=== PATIENT | female | born 1940 | race Caucasian/White ===

== ENCOUNTER 2016-09-09 10:28 | Observation (INO) | payer MEDICARE ==
[~2016-09-09] VITALS: Ht 162.6 cm; Wt 43.7 kg
[2016-09-09 10:34] VITALS: BP 160/76; PULSE 100; RESP 20; TEMP 98.3; O2SAT 97
[2016-09-09 11:30] VITALS: BP 141/91; PULSE 113; RESP 20; O2SAT 97
[2016-09-09] MEDS ORDERED: FAMO20TA2 PO (11:37)
[2016-09-09] MEDS ORDERED: MORP1TAB24 PO (11:37)
[2016-09-09] MEDS ORDERED: DULO1CAP PO (11:37)
[2016-09-09] MEDS ORDERED: ISOS30TA3 PO (11:37)
[2016-09-09] MEDS ORDERED: SPIR50TA PO (11:37)
[2016-09-09] MEDS ORDERED: DILT120C43 PO (11:37)
[2016-09-09] MEDS ORDERED: FURO40TA PO (11:37)
[2016-09-09] MEDS ORDERED: MSIR30 PO (11:37)
[2016-09-09 11:41] LABS: AUTOMATED NEUTROPHIL # 10.3 TH/MM3 (1.8-7.7); BASOPHIL # 0.1 TH/MM3 (0-0.2); BASOPHIL % 0.6 % (0.0-2.0); HEMATOCRIT 37.1 % (35.0-46.0); HEMO FLAGS DIFF FINAL; LYMPH % 3.2 % (9.0-44.0); LYMPHOCYTE # 0.4 TH/MM3 (1.0-4.8); MEAN CELL VOLUME 94.5 FL (80.0-100.0); MEAN CORPUSCULAR HEMOGLOBIN 32.5 PG (27.0-34.0); MEAN CORPUSCULAR HGB CONC 34.4 % (32.0-36.0); MONO % 3.1 % (0.0-8.0); NEUT % 93.1 % (16.0-70.0); PLATELET COUNT 292 TH/MM3 (150-450); RED BLOOD COUNT 3.92 MIL/MM3 (4.00-5.30); RED CELL DISTRIBUTION WIDTH 15.7 % (11.6-17.2); WHITE BLOOD COUNT 11.1 TH/MM3 (4.0-11.0)
--- NOTE | 2016-09-09 11:43 | PD ---
HPI Chief Complaint: Respiratory Distress Time Seen by Provider: 10:47 Travel History International Travel<30 days: No Contact w/Intl Traveler<30days: No Traveled to known affect area: No History of Present Illness HPI Patient is a 75 year old female with history of afib, CHF, anemia, htn, who was sent to the ER by her PCP, Dr. Holliday for evaluation of shortness of breath. Patient reports that she was sent to the ER today as her sob has progressed. Reports that she feels sob on exertion as well as at rest. Reports that nothing makes symptoms better or worse. Reports no chest pain, no fever/ chills. No cough/congestion. Reports that she has also been having overall decreased oral intake over the past 3-4 days - reports "i just don't feel that hungry." Denies dysuria/urgency/freq Patient reports that she does have history of chronic anemia, reports that she does get blood transfusions for this. 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) Cardiovascular Problems: Yes (CHF ) Hypertension: Yes Past Surgical History Hysterectomy: Yes Social History Alcohol Use: No Tobacco Use: No Substance Use: No Allergies-Medications (Allergen,Severity, Reaction): Coded Allergies: Compazine (Verified Allergy, Unknown, 09/09/16) Penicillin (Verified Allergy, Unknown, 09/09/16) Reported Meds & Prescriptions Reported Meds & Active Scripts Active Reported Famotidine 20 Mg Tab 20 Mg PO BID Spironolactone 50 Mg Tab 50 Mg PO BIDPC Isosorbide Mononitrate ER (Isosorbide Mononitrate) 30 Mg Louie 30 Mg PO DAILY Furosemide 40 Mg Tab 40 Mg PO BID Duloxetine DR (Duloxetine HCl) 20 Mg Capdr 20 Mg PO DAILY Morphine IR (Morphine Sulfate) 30 Mg Tab 30 Mg PO Q4H PRN Morphine ER (Morphine Sulfate) 15 Mg Tab 15 Mg PO BID Dilt-Xr (Diltiazem HCl) 120 Mg Capdr 120 Mg PO DAILY Review of Systems General / Constitutional: No: Fever Eyes: No: Visual changes HENT: No: Headaches Cardiovascular: No: Chest Pain or Discomfort Respiratory: Positive: Shortness of Breath Gastrointestinal: No: Abdominal Pain Genitourinary: No: Dysuria Musculoskeletal: No: Pain Skin: No Rash Neurologic: No: Weakness Psychiatric: No: Depression Endocrine: No: Polydipsia Hematologic/Lymphatic: No: Easy Bruising Physical Exam Narrative GENERAL: moderate distress SKIN: Focused skin assessment warm/dry. patient pale appearing HEAD: Atraumatic. Normocephalic. EYES: Pupils equal and round. No scleral icterus. No injection or drainage. ENT: No nasal bleeding or discharge. Mucous membranes pink and moist. NECK: Trachea midline. No JVD. CARDIOVASCULAR: Irregular rate and rhythm. No murmur appreciated. RESPIRATORY: No accessory muscle use. Clear to auscultation. Breath sounds equal bilaterally. GASTROINTESTINAL: Abdomen soft, non-tender, nondistended. Hepatic and splenic margins not palpable. MUSCULOSKELETAL: No obvious deformities. No clubbing. No cyanosis. No edema. NEUROLOGICAL: Awake and alert. No obvious cranial nerve deficits. Motor grossly within normal limits. Normal speech. PSYCHIATRIC: Appropriate mood and affect; insight and judgment normal. Data Data Last Documented VS Vital Signs Date Time Temp Pulse Resp B/P Pulse Ox O2 Delivery O2 Flow Rate FiO2 09/09/16 11:30 113 20 141/91 97 Room Air 09/09/16 10:34 98.3 Orders Prothrombin Time / Inr (Pt) (09/09/16 10:55) Act Partial Throm Time (Ptt) (09/09/16 10:55) Type And Screen (09/09/16 10:55) Electrocardiogram (09/09/16 10:55) B-Type Natriuretic Peptide (09/09/16 10:55) Ckmb (Isoenzyme) Profile (09/09/16 10:55) Complete Blood Count With Diff (09/09/16 10:55) Comprehensive Metabolic Panel (09/09/16 10:55) Magnesium (Mg) (09/09/16 10:55) Troponin I (09/09/16 10:55) Chest, Single Ap (09/09/16 10:55) Ecg Monitoring (09/09/16 10:55) Iv Access Insert/Monitor (09/09/16 10:55) Oximetry (09/09/16 10:55) Morphine Inj (Morphine Inj) (09/09/16 12:45) Aspirin Chew (Aspirin Chew) (09/09/16 13:00) Sodium Chlor 0.9% 1000 Ml Inj (Ns 1000 M (09/09/16 13:15) Potassium Chlor 20 Meq Premix (Kcl 20 Me (09/09/16 13:15) Admit Order (Ed Use Only) (09/09/16 13:04) Direct Delia (09/09/16 11:10) Red Blood Cells (Rbc) (09/09/16 11:10) Labs Laboratory Tests Test 09/09/16 11:10 White Blood Count 11.1 TH/MM3 Red Blood Count 3.92 MIL/MM3 Hemoglobin 12.7 GM/DL Hematocrit 37.1 % Mean Corpuscular Volume 94.5 FL Mean Corpuscular Hemoglobin 32.5 PG Mean Corpuscular Hemoglobin 34.4 % Concent Red Cell Distribution Width 15.7 % Platelet Count 292 TH/MM3 Mean Platelet Volume 8.7 FL Neutrophils (%) (Auto) 93.1 % Lymphocytes (%) (Auto) 3.2 % Monocytes (%) (Auto) 3.1 % Eosinophils (%) (Auto) 0.0 % Basophils (%) (Auto) 0.6 % Neutrophils # (Auto) 10.3 TH/MM3 Lymphocytes # (Auto) 0.4 TH/MM3 Monocytes # (Auto) 0.3 TH/MM3 Eosinophils # (Auto) 0.0 TH/MM3 Basophils # (Auto) 0.1 TH/MM3 CBC Comment DIFF FINAL Differential Comment Prothrombin Time 12.4 SEC Prothromb Time International 1.1 RATIO Ratio Activated Partial 26.1 SEC Thromboplast Time Sodium Level 130 MEQ/L Potassium Level 3.3 MEQ/L Chloride Level 94 MEQ/L Carbon Dioxide Level 20.8 MEQ/L Anion Gap 15 MEQ/L Blood Urea Nitrogen 79 MG/DL Creatinine 1.97 MG/DL Estimat Glomerular Filtration 25 ML/MIN Rate Random Glucose 142 MG/DL Calcium Level 9.6 MG/DL Magnesium Level 1.9 MG/DL Total Bilirubin 1.6 MG/DL Aspartate Amino Transf 20 U/L (AST/SGOT) Alanine Aminotransferase 18 U/L (ALT/SGPT) Alkaline Phosphatase 135 U/L Total Creatine Kinase 43 U/L Troponin I 0.07 NG/ML B-Type Natriuretic Peptide 312 PG/ML Total Protein 9.9 GM/DL Albumin 3.6 GM/DL Blood Type A POSITIVE Antibody Screen POSITIVE Direct Antiglobulin Test WEAKLY (Delia) POSITIVE Crossmatch Leukocyte-Reduced Red Blood Cells Blood Bank Comment MDM Medical Decision Making Medical Screen Exam Complete: Yes Emergency Medical Condition: Yes Interpretation(s) ekg at 1139: Afib at 118bpm, qt/qtc: 320/390 Vital Signs Date Time Temp Pulse Resp B/P Pulse Ox O2 Delivery O2 Flow Rate FiO2 09/09/16 10:46 133 24 98 Room Air 09/09/16 10:34 98.3 100 20 160/76 97 Room Air Differential Diagnosis CHF exacerbation, A. fib, arrhythmia, anemia, electrolyte abnormality Narrative Course 75-year-old female who presents to emergency room complaints of shortness breath at the past 3 days. Sent to the emergency room by her primary care doctor Dr. Holliday, as she has been short of breath at rest as well as exertion. Patient with no focal complaints at this time. Patient does appear pale on exam, blood work including type and screen ordered. Plan to monitor patient on a mover helper. Vital Signs Date Time Temp Pulse Resp B/P Pulse Ox O2 Delivery O2 Flow Rate FiO2 09/09/16 11:30 113 20 141/91 97 Room Air 09/09/16 10:46 133 24 98 Room Air 09/09/16 10:34 98.3 100 20 160/76 97 Room Air Laboratory Tests Test 09/09/16 11:10 White Blood Count 11.1 TH/MM3 (4.0-11.0) Red Blood Count 3.92 MIL/MM3 (4.00-5.30) Hemoglobin 12.7 GM/DL (11.6-15.3) Hematocrit 37.1 % (35.0-46.0) Mean Corpuscular Volume 94.5 FL (80.0-100.0) Mean Corpuscular Hemoglobin 32.5 PG (27.0-34.0) Mean Corpuscular Hemoglobin 34.4 % Concent (32.0-36.0) Red Cell Distribution Width 15.7 % (11.6-17.2) Platelet Count 292 TH/MM3 (150-450) Mean Platelet Volume 8.7 FL (7.0-11.0) Neutrophils (%) (Auto) 93.1 % (16.0-70.0) Lymphocytes (%) (Auto) 3.2 % (9.0-44.0) Monocytes (%) (Auto) 3.1 % (0.0-8.0) Eosinophils (%) (Auto) 0.0 % (0.0-4.0) Basophils (%) (Auto) 0.6 % (0.0-2.0) Neutrophils # (Auto) 10.3 TH/MM3 (1.8-7.7) Lymphocytes # (Auto) 0.4 TH/MM3 (1.0-4.8) Monocytes # (Auto) 0.3 TH/MM3 (0-0.9) Eosinophils # (Auto) 0.0 TH/MM3 (0-0.4) Basophils # (Auto) 0.1 TH/MM3 (0-0.2) CBC Comment DIFF FINAL Differential Comment Prothrombin Time 12.4 SEC (9.8-11.6) Prothromb Time International 1.1 RATIO Ratio Activated Partial 26.1 SEC Thromboplast Time (24.3-30.1) Sodium Level 130 MEQ/L (136-145) Potassium Level 3.3 MEQ/L (3.5-5.1) Chloride Level 94 MEQ/L (98-107) Carbon Dioxide Level 20.8 MEQ/L (21.0-32.0) Anion Gap 15 MEQ/L (5-15) Blood Urea Nitrogen 79 MG/DL (7-18) Creatinine 1.97 MG/DL (0.50-1.00) Estimat Glomerular Filtration 25 ML/MIN (>89) Rate Random Glucose 142 MG/DL (74-106) Calcium Level 9.6 MG/DL (8.5-10.1) Magnesium Level 1.9 MG/DL (1.5-2.5) Total Bilirubin 1.6 MG/DL (0.2-1.0) Aspartate Amino Transf 20 U/L (15-37) (AST/SGOT) Alanine Aminotransferase 18 U/L (10-53) (ALT/SGPT) Alkaline Phosphatase 135 U/L (45-117) Total Creatine Kinase 43 U/L (26-192) Troponin I 0.07 NG/ML (0.02-0.05) B-Type Natriuretic Peptide 312 PG/ML (0-100) Total Protein 9.9 GM/DL (6.4-8.2) Albumin 3.6 GM/DL (3.4-5.0) Blood Type A POSITIVE Antibody Screen POSITIVE Blood Bank Comment Last Impressions Chest X-Ray 09/09/16 1055 Signed Impressions: Service Date/Time: September 11:12 - CONCLUSION: 1. The lungs are clear. 2. Deformity of both shoulders. Maykel Singh MD reviewed case with dr. holliday. will admit for NSTEMI as well as dehydration Diagnosis Primary Impression: NSTEMI (non-ST elevated myocardial infarction) Additional Impressions: Renal insufficiency Hypokalemia Hyponatremia Admitting Information Admitting Physician Requests: Admit Lucina Jimenez DO Sep 09, 2016 11:43
[2016-09-09 11:49] LABS: APTT (PATIENT) 26.1 SEC (24.3-30.1); INTERNATIONAL NORMALIZED RATIO 1.1 RATIO; PROTHROMBIN TIME - PATIENT 12.4 SEC (9.8-11.6)
--- NOTE | 2016-09-09 12:03 | RADRPT ---
EXAM DATE/TIME: 09/09/2016 11:12 [facility] COMPARISON: No previous studies available for comparison. INDICATIONS : Shortness of breath and weakness. MEDICAL HISTORY : Hypertension. SURGICAL HISTORY : None. ENCOUNTER: Initial ACUITY: 1 day PAIN SCORE: 0/10 LOCATION: Bilateral chest FINDINGS: The lungs are symmetrically aerated and clear. The heart is normal size. Both hemidiaphragms well d elineated. Right central line catheter tip projects over the distal superior vena cava. There is de formity of both shoulders with a mottled appearance to the humeral head bilaterally and possible infe rior dislocation/subluxation. Deformity of the lateral right clavicle. CONCLUSION: 1. The lungs are clear. 2. Deformity of both shoulders. Maykel Singh MD on September 09, 2016 at 12:00 Board Certified Radiologist. This report was verified electronically.
[2016-09-09 12:29] LABS: ANION GAP 15 MEQ/L (5-15); AST (GOT) 20 U/L (15-37); BICARBONATE 20.8 MEQ/L (21.0-32.0); BLOOD UREA NITROGEN 79 MG/DL (7-18); CHLORIDE 94 MEQ/L (98-107); GLOMERULAR FILTRATION RATE 25 ML/MIN (>89); MAGNESIUM 1.9 MG/DL (1.5-2.5); POTASSIUM 3.3 MEQ/L (3.5-5.1); SODIUM (NA) 130 MEQ/L (136-145)
[2016-09-09 12:30] LABS: ALT (GPT) 18 U/L (10-53)
[2016-09-09 12:33] LABS: ALKALINE PHOSPHATASE 135 U/L (45-117); TOTAL BILIRUBIN ADULT 1.6 MG/DL (0.2-1.0)
[2016-09-09] MEDS ORDERED: MORPHINE SULFATE 4 MG/ML INJ IV PUSH ONE (12:45)
[2016-09-09 12:50] LABS: CREATINE KINASE 43 U/L (26-192)
[2016-09-09] MEDS ORDERED: ASPIRIN 81 MG CHEW TAB CHEW ONE (13:00)
[2016-09-09] MEDS ORDERED: SODIUM CHLOR 0.9% 1000 ML INJ 1,000 ML IV ONE (13:15)
[2016-09-09] MEDS: POTASSIUM CHLOR 20 MEQ PREMIX 100 ML IV SCH ×2 (13:18→15:38)
[2016-09-09] MEDS ORDERED: SODIUM CHLORIDE 0.9% FLUSH 10 ML FLUSH IV FLUSH PRN (13:30)
[2016-09-09] MEDS ORDERED: NALOXONE HCL 0.4 MG/ML AMP IV PRN (13:30)
[2016-09-09] MEDS ORDERED: BISACODYL 10 MG SUPP RECTAL PRN (15:00)
[2016-09-09] MEDS ORDERED: LACTULOSE SYRUP 20 GM/30 ML CUP PO PRN (15:00)
[2016-09-09] MEDS ORDERED: ACETAMINOPHEN 325 MG TAB PO PRN (15:00)
--- NOTE | 2016-09-09 15:28 | MH ---
cc: KOKI COLEMAN DATE OF ADMISSION 09/09/2016 CHIEF COMPLAINT Weakness, chest pain, shortness of breath. 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 Her son brought her in. She was pale and ashen and looked very poorly. I have suggested she go to [place] [facility]. I was then called for admission with surprisingly normal hemoglobin levels. The patient is found tachycardiac and with a CHF exacerbation and electrolyte abnormality. She sees Dr. Woodard as an outpatient for chronic wound care of her left upper and lower extremities and has had recurrent openings in her back, lumbar hardware with recurrent lumbar osteomyelitis. Her wounds have been stable. However, emergency room physician called with report of troponin of 0.07 and potassium 3.3. She is with her son and he reports that she has had altered mental status and she is usually very lucid, however, she has not been able to recall much of her history. The son thinks that she has had a stroke. LABORATORY DATA Potassium 3.3, sodium 130, creatinine 1.97, troponin 0.07, WBCs 11.1, platelets normal. INR 1.1. MEDICATIONS Home medications are: 1. Diltiazem CD 120 daily. 2. Duloxetine. 3. Imdur. 4. Ambien. 5. Morphine ER 15 milligrams b.i.d. 6. Lasix 40 p.o. b.i.d. 7. Pepcid 20 b.i.d. 8. Spironolactone 50 milligrams b.i.d. 9. Morphine immediate release 30 milligrams q. four p.r.n. pain. IMAGING STUDIES Chest x-ray shows clear lungs, deformity of both shoulders. PAST MEDICAL HISTORY 1. Plasmacytoma. 2. Anemia of chronic disease with recurrent transfusions by oncology. 3. Systolic CHF followed by Dr. Ross. 4. Hypertension. 5. Osteomyelitis of lumbar hardware. 6. MRSA cellulitis and ulcerations of the legs. PAST SURGICAL HISTORY Hysterectomy. 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 No alcohol, tobacco or illicit drug usage. She lives home alone. Her son is very attentive. ALLERGIES COMPAZINE AND PENICILLIN. REVIEW OF SYSTEMS Weakness, confusion and chest pain, shortness of breath, pallor, increased generalized pain. Negative 14-point review of systems otherwise. PHYSICAL EXAMINATION VITAL SIGNS: Vitals are pulse 113, respirations 20, blood pressure 141/91, pulse ox 97% on room air and temperature 98.3. GENERAL: Physical exam in general she is an alert elderly female. She looks much older than 75 years of age. She is grayish in color. She has severe kyphosis. HEENT: Oropharynx is clear. Carotids are clear. CHEST: Clear. CARDIOVASCULAR: Cardiovascular is tachycardiac, irregular. CHEST: Clear. No wheezes, rales, crackles or coughing. ABDOMEN: Soft, nontender. No rebound or guarding. EXTREMITIES: The extremities are wrapped with thick Kishore wraps and bandages otherwise skin is clear. ASSESSMENT 1. Altered mental status. 2. Non-ST elevation MN. 3. Plasmacytoma. 4. Anemia of chronic disease. 5. Dehydration which is likely leading to her normal hemoglobin levels. 6. Recurrent transfusions. 7. Chronic pain syndrome. 8. Lumbar osteomyelitis history. 9. 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 10. Hypokalemia. 11. Hyponatremia. 12. Acute kidney injury. 13. Hyperglycemia. PLAN 1. Consult cardiology. 2. Consult wound care for her chronic leg ulcers. 3. Serial troponin levels. 4. Potassium IV bolus. 5. Normal saline bolus. 6. Diltiazem p.o. 7. Pepcid 20 milligrams b.i.d. for GI prophylaxis. 8. Lasix 40 p.o. b.i.d. 9. Heparin 5000 units subcu q.12 hours. 10. MSIR p.r.n. for pain. 11. MS Contin b.i.d. 15 milligrams b.i.d. for chronic pain. 12. Spironolactone 50 b.i.d. 13. Ambien p.r.n. 14. Telemetry. 15. PT. 16. OT. 17. Observation admission. 18. A.m. labs. Koki Coleman MD RP/EO /2:52 PM /3:10 PM
--- NOTE | 2016-09-09 15:29 | PD.CONS ---
HPI Service CV Consult Requested By Reason for Consult elevated troponin Primary Care Physician Alejandro Ellis MD History of Present Illness Here with f afib, CHF, anemia, htn, who is admitted shortness of breath and elevated troponin. Came to the ER today for progression of shortness of breath. Reports no chest pain. No cough/congestion. Her regular colored liquid plastic applier is Dr. Flores (Gorge Treviño) Review of Systems Consitutional: DENIES: Fatigue, Fever, Chills, Weight gain, Weight loss Eyes: DENIES: Amaurosis Fugax, Change in vision HEENT: DENIES: Lightheadedness, Change in hearing Respiratory: COMPLAINS OF: Shortness of breath Cardiovascular: DENIES: See HPI, Chest pain, Palpitations, Syncope, Tachycardia Gastrointestinal: DENIES: Nausea, Vomiting, Change in bowel habits, Reflux, Bloody stools, Melena Genitourinary: DENIES: Urinary incontinence, Difficulty voiding Integumentary: DENIES: Rash Neurologic: DENIES: Tingling or numbness, Memory problems, Poor Balance, Stroke symptoms Musculoskeletal: DENIES: Joint pain, Muscle pain, Limited range of motion, Back pain Psychiatric: COMPLAINS OF: Anxiety, Depression, Sleep disturbances Hematologic: DENIES: Bruising tendencies, Bleeding tendencies Endocrine: DENIES: Weight gain, Weight loss, Thyroid disease (Gorge Treviño ) Past Family Social History Allergies: Coded Allergies: Compazine (Verified Allergy, Unknown, 09/09/16) Penicillin (Verified Allergy, Unknown, 09/09/16) Past Medical History see HPI Past Surgical History Hysterectomy Reported Medications Reported Meds & Active Scripts Active Reported Famotidine 20 Mg Tab 20 Mg PO BID Spironolactone 50 Mg Tab 50 Mg PO BIDPC Isosorbide Mononitrate ER (Isosorbide Mononitrate) 30 Mg Louie 30 Mg PO DAILY Furosemide 40 Mg Tab 40 Mg PO BID Duloxetine DR (Duloxetine HCl) 20 Mg Capdr 20 Mg PO DAILY Morphine IR (Morphine Sulfate) 30 Mg Tab 30 Mg PO Q4H PRN Morphine ER (Morphine Sulfate) 15 Mg Tab 15 Mg PO BID Dilt-Xr (Diltiazem HCl) 120 Mg Capdr 120 Mg PO DAILY Active Ordered Medications Current Medications Medications (Trade) Dose Ordered Sig/Jayne Route Start Time Stop Time Status Last Admin (KCl 20 Meq Premix Inj) 100 ml @ 50 mls/hr Q2H IV 09/09/16 13:15 09/09/16 17:14 09/09/16 13:18 (NS Flush) 2 ml UNSCH PRN IV FLUSH 09/09/16 13:30 (NS Flush) 2 ml BID IV FLUSH 09/09/16 21:00 (Tylenol) 650 mg Q4H PRN PO 09/09/16 15:00 (Zofran Inj) 4 mg Q6HR PRN IVP 09/09/16 18:00 (Ambien) 5 mg HS PRN PO 09/09/16 21:00 (Heparin Inj) 5,000 units Q12HR SQ 09/09/16 21:00 (Narcan Inj) 0.4 mg UNSCH PRN IV 09/09/16 13:30 (Dina-Colace) 1 tab BID PO 09/09/16 21:00 (Milk Of Magnesia Liq) 30 ml Q12HR PRN PO 09/09/16 21:00 (Senokot) 17.2 mg Q12HR PRN PO 09/09/16 21:00 (Dulcolax Supp) 10 mg DAILY PRN RECTAL 09/09/16 15:00 (Lactulose Liq) 30 ml DAILY PRN PO 09/09/16 15:00 (Cardizem Cd) 120 mg DAILY PO 09/10/16 09:00 (Cymbalta Dr) 20 mg DAILY PO 09/10/16 09:00 (Pepcid) 20 mg BID PO 09/09/16 21:00 (Lasix) 40 mg BID PO 09/09/16 21:00 (Imdur) 30 mg DAILY PO 09/10/16 09:00 (Oramorph Sr) 15 mg BID PO 09/09/16 21:00 (Msir) 30 mg Q4HR PRN PO 09/09/16 16:00 (Aldactone) 50 mg BIDPC PO 09/09/16 18:00 (Nitroglycerin 2% Oint) 1 inch Q6HR TOPICAL 09/09/16 18:00 UNV (Morphine Inj) 5 mg Q4H PRN IV PUSH 09/09/16 15:15 UNV Family History noncontributory Social History denies smoking or alcohol (Gorge Treviño) Physical Exam Vital Signs Vital Signs Date Time Temp Pulse Resp B/P Pulse Ox O2 Delivery O2 Flow Rate FiO2 09/09/16 11:30 113 20 141/91 97 Room Air 09/09/16 10:46 133 24 98 Room Air 09/09/16 10:34 98.3 100 20 160/76 97 Room Air Physical Exam GENERAL: Well-nourished, well-developed patient in no apparent distress. NECK: No JVD. No carotid bruit. CARDIOVASCULAR: IR IR. S1/S2 no murmur, rub, or gallop. RESPIRATORY: No accessory muscle use. Clear to auscultation. Breath sounds equal bilaterally. GASTROINTESTINAL: Abdomen soft, non-tender, nondistended. MUSCULOSKELETAL: Extremities without clubbing, cyanosis, or edema. Laboratory Laboratory Tests Test 09/09/16 09/09/16 11:10 13:34 White Blood Count 11.1 Red Blood Count 3.92 Hemoglobin 12.7 Hematocrit 37.1 Mean Corpuscular Volume 94.5 Mean Corpuscular Hemoglobin 32.5 Mean Corpuscular Hemoglobin 34.4 Concent Red Cell Distribution Width 15.7 Platelet Count 292 Mean Platelet Volume 8.7 Neutrophils (%) (Auto) 93.1 Lymphocytes (%) (Auto) 3.2 Monocytes (%) (Auto) 3.1 Eosinophils (%) (Auto) 0.0 Basophils (%) (Auto) 0.6 Neutrophils # (Auto) 10.3 Lymphocytes # (Auto) 0.4 Monocytes # (Auto) 0.3 Eosinophils # (Auto) 0.0 Basophils # (Auto) 0.1 CBC Comment DIFF FINAL Differential Comment Prothrombin Time 12.4 Prothromb Time International 1.1 Ratio Activated Partial 26.1 Thromboplast Time Sodium Level 130 Potassium Level 3.3 Chloride Level 94 Carbon Dioxide Level 20.8 Anion Gap 15 Blood Urea Nitrogen 79 Creatinine 1.97 Estimat Glomerular Filtration 25 Rate Random Glucose 142 Calcium Level 9.6 Magnesium Level 1.9 Total Bilirubin 1.6 Aspartate Amino Transf 20 (AST/SGOT) Alanine Aminotransferase 18 (ALT/SGPT) Alkaline Phosphatase 135 Total Creatine Kinase 43 Troponin I 0.07 B-Type Natriuretic Peptide 312 Total Protein 9.9 Albumin 3.6 Blood Type A POSITIVE Antibody Screen POSITIVE Direct Antiglobulin Test WEAKLY (Delia) POSITIVE Crossmatch Leukocyte-Reduced Red Blood Cells Blood Bank Comment Antibody Identification Non-Specific Agglutinin (Hudson,Gorge A. PA) Result Diagram: 09/09/16 1110 09/09/16 1110 Assessment and Plan Problem List: (1) Elevated troponin Assessment and Plan So far only one set of enzymes in the indeterminant range, likely demand mediated with her renal dysfunction. BNP is not significantly elevated. A-fib: We do need to slow the heart rate. Start diltiazem gtt and go from there. She is not a good candidate for beta blockers (SOB) or digoxin (Renal) ( Gorge Treviño) Assessment and Plan titrate CCB PO and wean gtt as tolerated 2d echo lexiscan tomorrow (Joseph Salinas MD) Gorge Treviño Sep 09, 2016 15:29 Joseph Salinas MD Sep 09, 2016 15:44
[2016-09-09 15:30] VITALS: BP 171/95; PULSE 103; RESP 20; O2SAT 97
[2016-09-09] MEDS: MORPHINE SULFATE 8 MG/ML INJ IV PUSH PRN ×2 (15:39→18:10)
--- NOTE | 2016-09-09 16:14 | OTSOAPIP ---
PATIENT OFF THE FLOOR FOR TESTING. Therapist: Cary Cho OTR/L Signature on file
--- NOTE | 2016-09-09 16:58 | RADRPT ---
EXAM DATE/TIME: 09/09/2016 16:07 This report includes an Addendum and supersedes previous reports for this exam. [facility] COMPARISON: No previous studies available for comparison. INDICATIONS : AMS RADIATION DOSE: 27.95 CTDIvol (mGy) MEDICAL HISTORY : Hypertension. Congestive heart failure. SURGICAL HISTORY : None. ENCOUNTER: Initial ACUITY: 1 day PAIN SCALE: 5/10 LOCATION: cranial TECHNIQUE: Multiple contiguous axial images were obtained of the head. Using automated exposure control and adj ustment of the mA and/or kV according to patient size, radiation dose was kept as low as reasonably a chievable to obtain optimal diagnostic quality images. FINDINGS: The ventricles and sulci are prominent characteristic of central cortical atrophy. There is a solita ry punctate hyperdensity in the left high convexity centrum semiovale, best seen on image #24. This may represent a hemorrhage or calcification. No evidence of mass effect no evidence of midline shift . Posterior fossa structures are grossly intact. There is a linear calcification in the tentorium a djacent to the sagittal sinus on the right. 4th ventricle is midline. Wide windows for bony detail demonstrate the calvarium to be intact. CONCLUSION: Solitary punctate hyperdensity in the left centrum semiovale could represent a punctate acute hemorrh age. Recommend further characterization with MRI to include blood sensitive gradient echo imaging. Maykel Singh MD on September 09, 2016 at 16:53 Board Certified Radiologist. This report was verified electronically. ADDENDUM: MRI can be performed without intravenous contrast. Mil Toro MD on September 09, 2016 at 17:33 Board Certified Radiologist. This report was verified electronically.
[2016-09-09 17:00] VITALS: BP 134/90; PULSE 101; RESP 18; TEMP 97.3; O2SAT 98
[2016-09-09] MEDS ORDERED: DILTIAZEM INJ 125 MG in SODIUM CHLORIDE 0.9% INJ 100 ML IV SCH (17:00)
[2016-09-09] MEDS ORDERED: NITROGLYCERIN 2% OINT 1 GM PACKET TOPICAL SCH (18:00)
[2016-09-09] MEDS ORDERED: ONDANSETRON HCL 4 MG/2 ML VIAL IVP PRN (18:00)
[2016-09-09] MEDS: SPIRONOLACTONE 50 MG TAB PO SCH (18:07)
[2016-09-09] MEDS: DILTIAZEM HCL 60 MG TAB PO SCH ×2 (18:07→23:22)
--- NOTE | 2016-09-09 19:29 | RADRPT ---
EXAM DATE/TIME: 09/09/2016 18:58 [facility] COMPARISON: CT BRAIN W/O CONTRAST, September 09, 2016, 16:07. INDICATIONS : CVA. Abnormal CT. MEDICAL HISTORY : Hypertension. Anemia. SURGICAL HISTORY : Hysterectomy. ENCOUNTER: Subsequent ACUITY: 1 day PAIN SCORE: 3/10 LOCATION: cranial TECHNIQUE: Multiplanar, multisequence MRI of the brain was performed without contrast. FINDINGS: CEREBRUM: The ventricles are normal for age. No evidence of midline shift, mass lesion, hemorrhage or acute in farction. No extraaxial fluid collections are seen. The pituitary gland and suprasellar cistern are normal in configuration. WHITE MATTER: Scattered punctate areas of white matter T2 prolongation which are nonspecific POSTERIOR FOSSA: The cerebellum and brainstem are intact. The 4th ventricle is midline. The cerebellopontine angle is unremarkable. The cerebellar tonsils are normal in position. DIFFUSION IMAGING: No focal areas of restricted diffusion are seen. No evidence of acute infarction. EXTRACRANIAL: The visualized portions of the orbits and paranasal sinuses are unremarkable. CONCLUSION: Patchy white matter signal abnormalities which are likely microvascular ischemic. No acute findings. Sterling Aguilar MD on September 09, 2016 at 19:25 Board Certified Radiologist. This report was verified electronically.
[2016-09-09 20:01] VITALS: BP 130/81; PULSE 85; RESP 16; TEMP 97.6; O2SAT 97
[2016-09-09 20:16] VITALS: PULSE 85
[2016-09-09] MEDS ORDERED: HEPARIN SODIUM - SQ 10,000 UNITS/ML VIAL SQ SCH (21:00)
[2016-09-09] MEDS ORDERED: SENNOSIDES 8.6 MG TAB PO PRN (21:00)
[2016-09-09] MEDS ORDERED: ZOLPIDEM TARTRATE 5 MG TAB PO PRN (21:00)
[2016-09-09] MEDS ORDERED: MAGNESIUM HYDROXIDE SUSP 30 ML CUP PO PRN (21:00)
--- NOTE | 2016-09-09 21:04 | RADRPT ---
EXAM DATE/TIME: 09/09/2016 20:18 [facility] COMPARISON: No previous studies available for comparison. INDICATIONS : Weakness. MEDICAL HISTORY : Congestive heart failure. Myocardial infarction. Hypertension. Asthma. Osteoporosis. Hepatitis. Anemi a. SURGICAL HISTORY : Hysterectomy. Back surgery. Leg surgery. ENCOUNTER: Initial ACUITY: 1 day PAIN SCORE: 0/10 LOCATION: Bilateral neck. PEAK SYSTOLIC VELOCITIES (cm/sec): ICA/CCA RATIO: Right: 1.3 Left: 1.0 ICA: Right: 59.6 Left: 63.3 CCA: Right: 46.1 Left: 60.3 ECA: Right: 74.9 Left: 47.1 VERTEBRAL: Right: 52.9 antegrade Left: 52.9 antegrade Elevated flow velocities and ICA/CCA ratios have been found to correlate with increased degrees of vessel stenosis, calculated as percentage of diameter relative to a normal segment of distal ICA/CCA FINDINGS: RIGHT CAROTID: No significant stenosis is visualized. The waveforms are within normal limits. LEFT CAROTID: No significant stenosis is visualized. The waveforms are within normal limits. VERTEBRAL ARTERIES: Antegrade flow is seen in both vertebral arteries. MISCELLANEOUS: None. CONCLUSION: No evidence of flow-limiting carotid stenosis. Sterling Aguilar MD on September 09, 2016 at 21:02 Board Certified Radiologist. This report was verified electronically.
[2016-09-09] MEDS: DOCUSATE SODIUM 50 MG/SENNA 8.6 MG TAB PO SCH (21:07)
[2016-09-09] MEDS: FAMOTIDINE 20 MG TAB PO SCH (21:08)
[2016-09-09] MEDS: FUROSEMIDE 40 MG TAB PO SCH (21:08)
[2016-09-09] MEDS: MORPHINE SULFATE 15 MG CONTROLLED RELEASE TAB PO SCH (21:08)
[2016-09-09] MEDS: SODIUM CHLORIDE 0.9% FLUSH 10 ML FLUSH IV FLUSH SCH (21:09)
[2016-09-09] MEDS: HEPARIN SODIUM - SQ 10,000 UNITS/ML VIAL SQ SCH (23:18)
[2016-09-09] MEDS: MORPHINE SULFATE 30 MG TAB PO PRN (23:23)
[2016-09-10] VITALS (10 sets, daily range): BP systolic 88–111; BP diastolic 53–62; PULSE 45–88; RESP 16–20; TEMP 97.2–97.7; O2SAT 95–98
[2016-09-10] MEDS: MORPHINE SULFATE 30 MG TAB PO PRN ×3 (04:07→20:13)
[2016-09-10 04:55] LABS: AUTOMATED NEUTROPHIL # 7.2 TH/MM3 (1.8-7.7); BASOPHIL % 0.5 % (0.0-2.0); EOSINOPHIL % 0.3 % (0.0-4.0); HEMATOCRIT 30.5 % (35.0-46.0); LYMPH % 9.8 % (9.0-44.0); LYMPHOCYTE # 0.9 TH/MM3 (1.0-4.8); MEAN CELL VOLUME 93.7 FL (80.0-100.0); MEAN CORPUSCULAR HEMOGLOBIN 33.7 PG (27.0-34.0); MONO % 8.4 % (0.0-8.0); PLATELET COUNT 231 TH/MM3 (150-450); RED BLOOD COUNT 3.25 MIL/MM3 (4.00-5.30); RED CELL DISTRIBUTION WIDTH 15.4 % (11.6-17.2); WHITE BLOOD COUNT 8.9 TH/MM3 (4.0-11.0)
[2016-09-10 05:17] LABS: HEMO FLAGS AUTO DIFF
[2016-09-10 05:22] LABS: BICARBONATE 23.5 MEQ/L (21.0-32.0); POTASSIUM 3.8 MEQ/L (3.5-5.1)
[2016-09-10] MEDS: DILTIAZEM HCL 60 MG TAB PO SCH ×2 (05:48→12:00)
[2016-09-10 06:50] LABS: OVALOCYTES 1+ (NORMAL)
[2016-09-10 06:51] LABS: SCAN/DIFF AUTO DIFF CONFIRMED
[2016-09-10] MEDS: ISOSORBIDE MONONITRATE 30 MG TAB PO SCH (09:00)
[2016-09-10] MEDS ORDERED: DILTIAZEM-CD 120 MG CAP ER PO SCH (09:00)
[2016-09-10] MEDS: SPIRONOLACTONE 50 MG TAB PO SCH ×2 (09:00→17:40)
[2016-09-10] MEDS: FUROSEMIDE 40 MG TAB PO SCH ×2 (09:00→21:41)
[2016-09-10] MEDS ORDERED: REGADENOSON INJ 0.4 MG/5 ML SYR ONE (10:14)
--- NOTE | 2016-09-10 11:30 | HHI.FPPN ---
Subjective Remarks called by RN tachy MRI head ordered low bp pt looks better d/w RN Objective Vitals Vital Signs Date Time Temp Pulse Resp B/P Pulse Ox O2 Delivery O2 Flow Rate FiO2 09/10/16 08:10 45 09/10/16 08:02 53 09/10/16 08:00 97.3 56 16 94/62 95 09/10/16 07:58 88/54 09/10/16 07:45 96 21 09/10/16 04:00 97.4 76 18 92/54 97 09/10/16 00:00 97.7 71 20 92/62 98 09/09/16 20:16 85 09/09/16 20:01 97.6 85 16 130/81 97 09/09/16 18:52 16 09/09/16 17:00 97.3 101 18 134/90 98 09/09/16 15:30 103 20 171/95 97 Room Air 09/09/16 11:30 113 20 141/91 97 Room Air I/O 09/09/16 09/09/16 09/09/16 09/10/16 09/10/16 09/10/16 07:00 15:00 23:00 07:00 15:00 23:00 Intake Total 360 ml 240 ml Output Total 400 ml Balance -40 ml 240 ml Intake Oral 360 ml 240 ml Output Urine Total 400 ml # Voids 2 # Bowel Movements 0 0 Result Diagram: 09/10/1640909/10/16409 Objective Remarks GENERAL: SKIN: Warm and dry. BLE ulcers HEAD: Atraumatic. Normocephalic. EYES: Pupils equal and round. No scleral icterus. No injection or drainage. ENT: No nasal bleeding or discharge. Mucous membranes pink and moist. NECK: Trachea midline. No JVD. CARDIOVASCULAR: Regular rate and rhythm. RESPIRATORY: No accessory muscle use. Clear to auscultation. Breath sounds equal bilaterally. GASTROINTESTINAL: Abdomen soft, non-tender, nondistended. Hepatic and splenic margins not palpable. MUSCULOSKELETAL: Extremities without clubbing, cyanosis, or edema. No obvious deformities. NEUROLOGICAL: Awake and alert. No obvious cranial nerve deficits. Motor grossly within normal limits. 1 out of 5 muscle strength in the arms and legs. Normal speech. PSYCHIATRIC: Appropriate mood and affect; insight and judgment normal. Medications and IVs Current Medications Medications (Trade) Dose Ordered Sig/Jayne Route Start Time Stop Time Status Last Admin (NS Flush) 2 ml UNSCH PRN IV FLUSH 09/09/16 13:30 (NS Flush) 2 ml BID IV FLUSH 09/09/16 21:00 09/09/16 21:09 (Tylenol) 650 mg Q4H PRN PO 09/09/16 15:00 (Zofran Inj) 4 mg Q6HR PRN IVP 09/09/16 18:00 (Ambien) 5 mg HS PRN PO 09/09/16 21:00 (Narcan Inj) 0.4 mg UNSCH PRN IV 09/09/16 13:30 (Dina-Colace) 1 tab BID PO 09/09/16 21:00 09/09/16 21:07 (Milk Of Magnesia Liq) 30 ml Q12HR PRN PO 09/09/16 21:00 (Senokot) 17.2 mg Q12HR PRN PO 09/09/16 21:00 (Dulcolax Supp) 10 mg DAILY PRN RECTAL 09/09/16 15:00 (Lactulose Liq) 30 ml DAILY PRN PO 09/09/16 15:00 (Cymbalta Dr) 20 mg DAILY PO 09/10/16 09:00 (Pepcid) 20 mg BID PO 09/09/16 21:00 09/09/16 21:08 (Lasix) 40 mg BID PO 09/09/16 21:00 09/09/16 21:08 (Imdur) 30 mg DAILY PO 09/10/16 09:00 (Oramorph Sr) 15 mg BID PO 09/09/16 21:00 09/09/16 21:08 (Msir) 30 mg Q4HR PRN PO 09/09/16 16:00 09/10/16 04:07 (Aldactone) 50 mg BIDPC PO 09/09/16 18:00 09/09/16 18:07 (Morphine Inj) 5 mg Q4H PRN IV PUSH 09/09/16 15:15 09/09/16 18:10 (Cardizem) 60 mg Q6HR PO 09/09/16 18:00 09/09/16 23:22 (Heparin Inj) 5,000 units Q12HR SQ 09/09/16 22:00 09/09/16 23:18 A/P Assessment and Plan ASSESSMENT- 1. Altered mental status likely due to dehydration 2. Non-ST elevation TN. 3. SCHF 4. Anemia of chronic disease 5. Dehydration which is likely leading to her normal hemoglobin levels. 6. Recurrent transfusions. 7. Chronic pain syndrome. 8. Lumbar osteomyelitis history. 9. 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 10. Hypokalemia. 11. Hyponatremia. 12. Acute kidney injury. 13. Hyperglycemia. 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 PLAN- Stress test today. Consult cardiology. Consult wound care for her chronic leg ulcers. Serial troponin levels. Diltiazem p.o. Pepcid 20 milligrams b.i.d. for GI prophylaxis. Lasix 40 p.o. b.i.d. Heparin 5000 units subcu q.12 hours. MSIR p.r.n. for pain. MS Contin 15 milligrams b.i.d. for chronic pain. Spironolactone 50 b.i.d. Ambien p.r.n. Telemetry. PT. OT. Observation admission. A.m. labs. Alejandro Ellis MD Sep 10, 2016 11:30
[2016-09-10] MEDS: DOCUSATE SODIUM 50 MG/SENNA 8.6 MG TAB PO SCH ×2 (11:54→20:09)
[2016-09-10] MEDS: FAMOTIDINE 20 MG TAB PO SCH ×2 (11:55→20:09)
[2016-09-10] MEDS: DULoxetine HCl DR 20 MG CAP PO SCH (11:55)
[2016-09-10] MEDS: HEPARIN SODIUM - SQ 10,000 UNITS/ML VIAL SQ SCH ×2 (11:57→20:09)
[2016-09-10] MEDS: MORPHINE SULFATE 15 MG CONTROLLED RELEASE TAB PO SCH ×2 (11:57→21:41)
[2016-09-10] MEDS: SODIUM CHLORIDE 0.9% FLUSH 10 ML FLUSH IV FLUSH SCH ×2 (11:59→20:09)
--- NOTE | 2016-09-10 12:36 | RADRPT ---
EXAM DATE/TIME: 09/10/2016 09:49 [facility] COMPARISON: No previous studies available for comparison. INDICATIONS : Atrial fibrillation with congestive heart faliure. Coronary artery disease. DOSE: 25.8 mCi Tc99m Myoview at stress. 8.4 mCi Tc99m Myoview at rest. 0.4 mg Lexiscan STRESS SYMPTOMS: Short of breath. EJECTION FRACTION: 60% MEDICAL HISTORY : Congestive hearrt failure. Hypertension. Asthma. SURGICAL HISTORY : Hysterectomy. Back and leg surgery. ENCOUNTER: Initial ACUITY: 1 day PAIN SCALE: 3/10 LOCATION: Bilateral chest TECHNIQUE: The patient underwent pharmacologic stress with infusion of prescribed dose. Continuous ECG tracing was monitored during stress. Gated SPECT imaging was performed after stress and conventional SPECT i maging was performed at rest. The examination was performed on a SPECT/CT scanner, both attenuation and non-corrected datasets were reviewed. FINDINGS: Moderate gut activity does obscure the inferior wall. The best perfused myocardium is the septum and inferior wall. There is minimal redistribution in the low anterior wall. There is minimal redistribution in the high anterior, anterior lateral wall towa rds the base as well. The high anterior, anterolateral redistribution appears more significant. Ejection fraction is calcified at 60%. There is some patient motion on these images making this inse nsitive. CONCLUSION: Equivocal for ischemia. Correlation is suggested. RISK CATEGORY: Low (<1% Annual Mortality Rate) Adriel Toro MD FACR on September 10, 2016 at 12:31 Board Certified Radiologist. This report was verified electronically.
--- NOTE | 2016-09-10 13:15 | PD.CARD.PN ---
Subjective Subjective Remarks off floor afib controlled rate Objective Medications Active Medications Acetaminophen (Tylenol) 650 mg Q4H PRN PO; Start 09/09/16 at 15:00 Bisacodyl (Dulcolax Supp) 10 mg DAILY PRN RECTAL; Start 09/09/16 at 15:00 Diltiazem HCl (Cardizem Cd) 120 mg DAILY PO; Start 09/10/16 at 09:00; Stop at 09:00; Status DC Diltiazem HCl (Cardizem) 60 mg Q6HR PO Last administered on 09/09/16 23:22; Admin Dose 60 MG; Start 09/09/16 at 18:00 Diltiazem HCl/ Sodium Chloride (Cardizem Inj/NS Inj) 125 ml @ 0 mls/hr TITRATE IV; Start 09/09/16 at 17:00; Stop 09/09/16 at 21:52; Status DC Duloxetine HCl (Cymbalta Dr) 20 mg DAILY PO Last administered on 09/10/16 11:55 ; Admin Dose 20 MG; Start 09/10/16 at 09:00 Famotidine (Pepcid) 20 mg BID PO Last administered on 09/10/16 11:55; Admin Dose 20 MG; Start 09/09/16 at 21:00 Furosemide (Lasix) 40 mg BID PO Last administered on 09/09/16 21:08; Admin Dose 40 MG; Start 09/09/16 at 21:00 Heparin Sodium (Porcine) (Heparin Inj) 5,000 units Q12HR SQ; Start 09/09/16 at 21 :00; Stop 09/09/16 at 21:00; Status DC Heparin Sodium (Porcine) (Heparin Inj) 5,000 units Q12HR SQ Last administered on 09/10/16 11:57; Admin Dose 5,000 UNITS; Start 09/09/16 at 22:00 Isosorbide Mononitrate (Imdur) 30 mg DAILY PO; Start 09/10/16 at 09:00 Lactulose (Lactulose Liq) 30 ml DAILY PRN PO; Start 09/09/16 at 15:00 Magnesium Hydroxide (Milk Of Magnesia Liq) 30 ml Q12HR PRN PO; Start 09/09/16 at 21:00 Morphine Sulfate (Msir) 30 mg Q4HR PRN PO Last administered on 09/10/16 04:07; Admin Dose 30 MG; Start 09/09/16 at 16:00 Morphine Sulfate (Oramorph Sr) 15 mg BID PO Last administered on 09/10/16 11:57 ; Admin Dose 15 MG; Start 09/09/16 at 21:00 Morphine Sulfate 5 mg 5 mg Q4H PRN IV PUSH Last administered on 09/09/16 18:10 ; Admin Dose 5 MG; Start 09/09/16 at 15:15 Naloxone HCl (Narcan Inj) 0.4 mg UNSCH PRN IV; Start 09/09/16 at 13:30 Nitroglycerin (Nitroglycerin 2% Oint) 1 inch Q6HR TOPICAL; Start 09/09/16 at 18: 00; Stop 09/09/16 at 18:00; Status DC Ondansetron HCl (Zofran Inj) 4 mg Q6HR PRN IVP; Start 09/09/16 at 18:00 Potassium Chloride (KCl 20 Meq Premix Inj) 100 ml @ 50 mls/hr Q2H IV Last administered on 09/09/16 15:38; Admin Dose 50 MLS/HR; Start 09/09/16 at 13:15; Stop 09/09/16 at 17:14; Status DC Regadenoson (Lexiscan Inj) 0.4 mg STK-MED ONCE .ROUTE Last administered on 10:14; Admin Dose 0.4 MG; Start 09/10/16 at 10:14; Stop 09/10/16 at 10:15; Status DC Senna/Docusate Sodium (Dina-Colace) 1 tab BID PO Last administered on 09/10/16 11:54; Admin Dose 1 TAB; Start 09/09/16 at 21:00 Sennosides (Senokot) 17.2 mg Q12HR PRN PO; Start 09/09/16 at 21:00 Sodium Chloride 1,000 ml @ 999 mls/hr BOLUS ONCE IV Last administered on 13:18; Admin Dose 999 MLS/HR; Start 09/09/16 at 13:15; Stop 09/09/16 at 14:15 ; Status DC Sodium Chloride (NS Flush) 2 ml BID IV FLUSH Last administered on 09/10/16 11:59 ; Admin Dose 2 ML; Start 09/09/16 at 21:00 Sodium Chloride (NS Flush) 2 ml UNSCH PRN IV FLUSH; Start 09/09/16 at 13:30 Spironolactone (Aldactone) 50 mg BIDPC PO Last administered on 09/09/16 18:07; Admin Dose 50 MG; Start 09/09/16 at 18:00 Zolpidem Tartrate (Ambien) 5 mg HS PRN PO; Start 09/09/16 at 21:00 Vital Signs / I&O Vital Signs Date Time Temp Pulse Resp B/P Pulse Ox O2 Delivery O2 Flow Rate FiO2 09/10/16 12:00 97.3 64 18 101/61 98 09/10/16 08:10 45 09/10/16 08:02 53 09/10/16 08:00 97.3 56 16 94/62 95 09/10/16 07:58 88/54 09/10/16 07:45 96 21 09/10/16 04:00 97.4 76 18 92/54 97 09/10/16 00:00 97.7 71 20 92/62 98 09/09/16 20:16 85 09/09/16 20:01 97.6 85 16 130/81 97 09/09/16 18:52 16 09/09/16 17:00 97.3 101 18 134/90 98 09/09/16 15:30 103 20 171/95 97 Room Air I/O 09/09/16 09/09/16 09/09/16 09/10/16 09/10/16 09/10/16 07:00 15:00 23:00 07:00 15:00 23:00 Intake Total 360 ml 240 ml Output Total 400 ml Balance -40 ml 240 ml Intake Oral 360 ml 240 ml Output Urine Total 400 ml # Voids 2 # Bowel Movements 0 0 Physical Exam GENERAL: SKIN: Warm and dry. HEAD: Normocephalic. EYES: No scleral icterus. No injection or drainage. NECK: Supple, trachea midline. No JVD or lymphadenopathy. CARDIOVASCULAR: IR IR. RESPIRATORY: Breath sounds equal bilaterally. No accessory muscle use. GASTROINTESTINAL: Abdomen soft, non-tender, nondistended. MUSCULOSKELETAL: No cyanosis, or edema. BACK: Nontender without obvious deformity. No CVA tenderness. Laboratory Laboratory Tests Test 09/09/16 09/09/16 09/09/16 09/09/16 13:34 14:48 16:00 21:04 Antibody Identification Non-Specific Agglutinin Troponin I 0.08 NG/ML 0.08 NG/ML Blood Type A POSITIVE Test 09/10/16 04:10 White Blood Count 8.9 TH/MM3 Red Blood Count 3.25 MIL/MM3 Hemoglobin 11.0 GM/DL Hematocrit 30.5 % Mean Corpuscular Volume 93.7 FL Mean Corpuscular Hemoglobin 33.7 PG Mean Corpuscular Hemoglobin 36.0 % Concent Red Cell Distribution Width 15.4 % Platelet Count 231 TH/MM3 Mean Platelet Volume 8.8 FL Neutrophils (%) (Auto) 81.0 % Lymphocytes (%) (Auto) 9.8 % Monocytes (%) (Auto) 8.4 % Eosinophils (%) (Auto) 0.3 % Basophils (%) (Auto) 0.5 % Neutrophils # (Auto) 7.2 TH/MM3 Lymphocytes # (Auto) 0.9 TH/MM3 Monocytes # (Auto) 0.8 TH/MM3 Eosinophils # (Auto) 0.0 TH/MM3 Basophils # (Auto) 0.0 TH/MM3 CBC Comment AUTO DIFF Differential Comment AUTO DIFF CONFIRMED Basophilic Stippling FAINT Ovalocytes 1+ Sodium Level 133 MEQ/L Potassium Level 3.8 MEQ/L Chloride Level 99 MEQ/L Carbon Dioxide Level 23.5 MEQ/L Anion Gap 11 MEQ/L Blood Urea Nitrogen 85 MG/DL Creatinine 1.70 MG/DL Estimat Glomerular Filtration 29 ML/MIN Rate Random Glucose 99 MG/DL Calcium Level 8.3 MG/DL Imaging Last Impressions Myocardial Perfusion Scan Nuc Med 09/10/16 0000 Signed Impressions: Service Date/Time: Saturday, September 10, 2016 09:49 - CONCLUSION: Equivocal for ischemia. Correlation is suggested. RISK CATEGORY: Low (<1%% Annual Mortality Rate) Adriel Toro MD FACR Chest X-Ray 09/09/16 1055 Signed Impressions: Service Date/Time: September 11:12 - CONCLUSION: 1. The lungs are clear. 2. Deformity of both shoulders. Maykel Singh MD Head CT 09/09/16 0000 Signed Impressions: Service Date/Time: September 16:07 - CONCLUSION: Solitary punctate hyperdensity in the left centrum semiovale could represent a punctate acute hemorrhage. Recommend further characterization with MRI to include blood sensitive gradient echo imaging. Maykel Singh MD ADDENDUM: MRI can be performed without intravenous contrast. Mil Toor MD Carotid Artery Ultrasound 09/09/16 Signed Impressions: Service Date/Time: September 20:18 - CONCLUSION: No evidence of flow-limiting carotid stenosis. Sterling Aguilar MD Brain MRI 09/09/16 Signed Impressions: Service Date/Time: September 18:58 - CONCLUSION: Patchy white matter signal abnormalities which are likely microvascular ischemic. No acute findings. Sterling Aguilar MD Assessment and Plan Problem List: (1) Elevated troponin Assessment and Plan decrease CCB dosing. rate controlled and slightly hypotensive SPECT pending if negative, ok for dc from cardio perspective CHADSVASC 4. consider anticoagulation with new novel agent. Eliquis BID? FU with Joseph Mae MD Sep 10, 2016 13:15
--- NOTE | 2016-09-10 13:47 | OTSOAPIP ---
TIME SESSION COMPLETED: AM TREATMENT TIME: 0 MINS. ELECTRONIC MEDICAL RECORD REVIEWED. INTERDISCIPLINARY COMMUNICATION: PATIENT WAS OFF THE UNIT TO UNDERGO A MYOCARDIAL PERFUSION SCAN. PLAN: WILL SEE WHEN ABLE OR NEXT TREATMENT DAY Therapist: ISA TESFAYE/Sai Signature on file
--- NOTE | 2016-09-10 17:42 | MB ---
cc: KRIS ESPARZA M.D. DATE OF CONSULTATION 09/10/16 REASON FOR CONSULTATION Mental status change, abnormal CT brain. HISTORY OF PRESENT ILLNESS Ms. Nicolas is a 75-year-old female who was admitted with chest pain and shortness of breath. Apparently was having some symptoms of confusion, had an MRI done of the brain which suggested the possibility of a hemorrhage in the left centrum semiovale. However, MRI of the brain was obtained revealing no sign of hemorrhage, only chronic ischemic demyelinization present. The patient denies any memory loss at the present time or confusion. Denies headaches. Denies any focal deficits. NEUROLOGIC EXAMINATION Higher cortical functions at this time appear to be normal. She is alert, oriented x3. Speech is fluent. Cranial nerves II-XII are normal. Motor exam reveals 5/5 strength of all groups. There is no drift. Fine motor skills are normal. Reflexes are symmetric. IMPRESSION The increased signal on the CT scan is probably incidental finding. MRI does not reveal any acute change. No hemorrhage. Carotid ultrasound is normal. At this time, she appears to be neurologically normal. I would not recommend any further neurologic evaluation. MD SHAYLA Montiel/ /5:33 PM /5:37 PM
--- NOTE | 2016-09-10 17:58 | EKG ---
Date Performed: 09/09/2016 Time Performed: 11:39:49 PTAGE: 75 years EKG: ATRIAL FIBRILLATION WITH RAPID VENTRICULAR RESPONSE ABNORMAL ECG NO PREVIOUS TRACING DOCTOR: Ronnie Zarate Interpretating Date/Time 09/10/2016 17:57:22
[2016-09-11] VITALS (8 sets, daily range): BP systolic 96–113; BP diastolic 60–80; PULSE 74–104; RESP 16–20; TEMP 97.4–97.9; O2SAT 96–99
[2016-09-11] MEDS: MORPHINE SULFATE 30 MG TAB PO PRN ×4 (00:59→22:46)
[2016-09-11 05:49] LABS: AUTOMATED NEUTROPHIL # 4.8 TH/MM3 (1.8-7.7); BASOPHIL # 0.1 TH/MM3 (0-0.2); BASOPHIL % 1.2 % (0.0-2.0); EOSINOPHIL # 0.1 TH/MM3 (0-0.4); EOSINOPHIL % 2.2 % (0.0-4.0); HEMATOCRIT 29.4 % (35.0-46.0); HEMO FLAGS DIFF FINAL; LYMPH % 12.4 % (9.0-44.0); LYMPHOCYTE # 0.8 TH/MM3 (1.0-4.8); MEAN CELL VOLUME 96.2 FL (80.0-100.0); MEAN CORPUSCULAR HEMOGLOBIN 31.9 PG (27.0-34.0); MEAN CORPUSCULAR HGB CONC 33.2 % (32.0-36.0); MONO % 11.1 % (0.0-8.0); NEUT % 73.1 % (16.0-70.0); PLATELET COUNT 223 TH/MM3 (150-450); RED BLOOD COUNT 3.05 MIL/MM3 (4.00-5.30); RED CELL DISTRIBUTION WIDTH 15.6 % (11.6-17.2); WHITE BLOOD COUNT 6.6 TH/MM3 (4.0-11.0)
[2016-09-11 06:57] LABS: BICARBONATE 25.5 MEQ/L (21.0-32.0); POTASSIUM 3.8 MEQ/L (3.5-5.1)
[2016-09-11] MEDS: DOCUSATE SODIUM 50 MG/SENNA 8.6 MG TAB PO SCH ×2 (08:50→20:57)
[2016-09-11] MEDS: HEPARIN SODIUM - SQ 10,000 UNITS/ML VIAL SQ SCH ×2 (08:50→20:59)
[2016-09-11] MEDS: SPIRONOLACTONE 50 MG TAB PO SCH ×2 (08:50→17:44)
[2016-09-11] MEDS: DULoxetine HCl DR 20 MG CAP PO SCH (08:51)
[2016-09-11] MEDS: MORPHINE SULFATE 15 MG CONTROLLED RELEASE TAB PO SCH ×2 (08:51→20:57)
[2016-09-11] MEDS: ISOSORBIDE MONONITRATE 30 MG TAB PO SCH (08:51)
[2016-09-11] MEDS: FAMOTIDINE 20 MG TAB PO SCH ×2 (08:51→20:57)
[2016-09-11] MEDS: FUROSEMIDE 40 MG TAB PO SCH ×2 (08:51→20:57)
[2016-09-11] MEDS: SODIUM CHLORIDE 0.9% FLUSH 10 ML FLUSH IV FLUSH SCH ×2 (08:52→21:01)
[2016-09-11] MEDS ORDERED: DILTIAZEM-CD 120 MG CAP ER PO SCH (09:00)
--- NOTE | 2016-09-11 10:20 | PD.CARD.PN ---
Subjective Subjective Remarks Chart reviewed and patient examined. She denies chest pain, palpitations, GI symptoms or bleeding. She does have mild dyspnea. Telemetry reveals mildly rapid atrial fibrillation. Objective Medications Reviewed Vital Signs / I&O Vital Signs Date Time Temp Pulse Resp B/P Pulse Ox O2 Delivery O2 Flow Rate FiO2 09/11/16 09:00 97.7 96 18 99 09/11/16 08:49 91 113/68 110/60 09/11/16 08:43 Room Air 09/11/16 08:07 78 09/11/16 04:00 97.7 85 20 100/66 99 09/11/16 04:00 Room Air 09/11/16 00:05 97.9 82 16 102/62 98 09/11/16 00:00 Room Air 09/10/16 20:00 97.3 88 18 111/57 98 09/10/16 20:00 87 09/10/16 20:00 Room Air 09/10/16 16:00 97.2 75 16 92/53 97 09/10/16 16:00 Room Air 09/10/16 12:00 Room Air 09/10/16 12:00 97.3 64 18 101/61 98 I/O 09/10/16 09/10/16 09/10/16 09/11/16 09/11/16 09/11/16 07:00 15:00 23:00 07:00 15:00 23:00 Intake Total 240 ml 960 ml 360 ml 440 ml Output Total 500 ml Balance 240 ml 960 ml 360 ml -60 ml Intake Oral 240 ml 960 ml 360 ml 440 ml Output Urine Total 500 ml # Voids 2 2 0 # Bowel Movements 0 0 Physical Exam GENERAL: Frail, well-nourished, well-developed patient in no apparent distress. SKIN: Warm and dry. NECK: JVD normal - less than or equal to 5 cm H20. CARDIOVASCULAR: Irregular rate and rhythm without murmurs, gallops, or rubs. RESPIRATORY: Normal breath sounds - equal bilaterally. No accessory muscle use. No wheezes, rales or rubs. PERIPHERY: No cyanosis, or edema. Laboratory Laboratory Tests Test 09/10/16 09/11/16 13:40 05:25 Nasal Screen MRSA (PCR) MRSA NOT DETECTED White Blood Count 6.6 TH/MM3 Red Blood Count 3.05 MIL/MM3 Hemoglobin 9.7 GM/DL Hematocrit 29.4 % Mean Corpuscular Volume 96.2 FL Mean Corpuscular Hemoglobin 31.9 PG Mean Corpuscular Hemoglobin 33.2 % Concent Red Cell Distribution Width 15.6 % Platelet Count 223 TH/MM3 Mean Platelet Volume 8.6 FL Neutrophils (%) (Auto) 73.1 % Lymphocytes (%) (Auto) 12.4 % Monocytes (%) (Auto) 11.1 % Eosinophils (%) (Auto) 2.2 % Basophils (%) (Auto) 1.2 % Neutrophils # (Auto) 4.8 TH/MM3 Lymphocytes # (Auto) 0.8 TH/MM3 Monocytes # (Auto) 0.7 TH/MM3 Eosinophils # (Auto) 0.1 TH/MM3 Basophils # (Auto) 0.1 TH/MM3 CBC Comment DIFF FINAL Differential Comment Sodium Level 135 MEQ/L Potassium Level 3.8 MEQ/L Chloride Level 101 MEQ/L Carbon Dioxide Level 25.5 MEQ/L Anion Gap 9 MEQ/L Blood Urea Nitrogen 96 MG/DL Creatinine 1.83 MG/DL Estimat Glomerular Filtration 27 ML/MIN Rate Random Glucose 97 MG/DL Calcium Level 8.3 MG/DL Imaging Last 48 hours Impressions Myocardial Perfusion Scan Nuc Med 09/10/16 0000 Signed Impressions: Service Date/Time: Saturday, September 10, 2016 09:49 - CONCLUSION: Equivocal for ischemia. Correlation is suggested. RISK CATEGORY: Low (<1%% Annual Mortality Rate) Adriel Toro MD FACR Chest X-Ray 09/09/16 1055 Signed Impressions: Service Date/Time: September 11:12 - CONCLUSION: 1. The lungs are clear. 2. Deformity of both shoulders. Maykel Singh MD Assessment and Plan Problem List: (1) Elevated troponin Assessment and Plan Problems: Atrial fibrillation with rapid response Borderline troponinnonspecific. Borderline SPECT nuclear Prior anemia with required transfusions. Recommendations: Will increase diltiazem for rate control. With her history of transfusion she does not appear to be a candidate for full anticoagulation. We will sign off and be available if needed. She will need to follow-up with . Gordon Barry MD Sep 11, 2016 10:20
--- NOTE | 2016-09-11 12:06 | HHI.PR ---
Subjective Remarks Follow-up non-ST elevation ID/encephalopathy 09/11/16-patient seen and examined, complains of generalized weakness. She had stress test yesterday and denies any chest pain Objective Vitals Vital Signs Date Time Temp Pulse Resp B/P Pulse Ox O2 Delivery O2 Flow Rate FiO2 09/11/16 09:00 97.7 96 18 99 09/11/16 08:49 91 113/68 110/60 09/11/16 08:43 Room Air 09/11/16 08:07 78 09/11/16 04:00 97.7 85 20 100/66 99 09/11/16 04:00 Room Air 09/11/16 00:05 97.9 82 16 102/62 98 09/11/16 00:00 Room Air 09/10/16 20:00 97.3 88 18 111/57 98 09/10/16 20:00 87 09/10/16 20:00 Room Air 09/10/16 16:00 97.2 75 16 92/53 97 09/10/16 16:00 Room Air I/O 09/10/16 09/10/16 09/10/16 09/11/16 09/11/16 09/11/16 07:00 15:00 23:00 07:00 15:00 23:00 Intake Total 240 ml 960 ml 360 ml 440 ml Output Total 500 ml Balance 240 ml 960 ml 360 ml -60 ml Intake Oral 240 ml 960 ml 360 ml 440 ml Output Urine Total 500 ml # Voids 2 2 0 # Bowel Movements 0 0 Result Diagram: 09/11/16 0525 09/11/16 0525 Imaging Last Impressions Myocardial Perfusion Scan Nuc Med 09/10/16 0000 Signed Impressions: Service Date/Time: Saturday, September 10, 2016 09:49 - CONCLUSION: Equivocal for ischemia. Correlation is suggested. RISK CATEGORY: Low (<1%% Annual Mortality Rate) Adriel Toro MD FACR Chest X-Ray 09/09/16 1055 Signed Impressions: Service Date/Time: September 11:12 - CONCLUSION: 1. The lungs are clear. 2. Deformity of both shoulders. Maykel Singh MD Head CT 09/09/16 0000 Signed Impressions: Service Date/Time: September 16:07 - CONCLUSION: Solitary punctate hyperdensity in the left centrum semiovale could represent a punctate acute hemorrhage. Recommend further characterization with MRI to include blood sensitive gradient echo imaging. Maykel Singh MD ADDENDUM: MRI can be performed without intravenous contrast. Mil Toro MD Carotid Artery Ultrasound 09/09/16 0000 Signed Impressions: Service Date/Time: September 20:18 - CONCLUSION: No evidence of flow-limiting carotid stenosis. Sterling Aguilar MD Brain MRI 09/09/16 0000 Signed Impressions: Service Date/Time: September 18:58 - CONCLUSION: Patchy white matter signal abnormalities which are likely microvascular ischemic. No acute findings. Sterling Aguilar MD Objective Remarks GENERAL: NAD and frail elderly female SKIN: Warm and dry. HEAD: Normocephalic. EYES: No scleral icterus. No injection or drainage. NECK: Supple, trachea midline. No JVD or lymphadenopathy. CARDIOVASCULAR: Regular rate and rhythm without murmurs, gallops, or rubs. RESPIRATORY: Breath sounds equal bilaterally. No accessory muscle use. GASTROINTESTINAL: Abdomen soft, non-tender, nondistended. MUSCULOSKELETAL: No cyanosis, or edema. BACK: Nontender without obvious deformity. No CVA tenderness. A/P Assessment and Plan 75-year-old female with Non-ST elevation ID Borderline SPECT nuclear stress test Appreciate input from cardiology and continue current management Atrial fibrillation with rapid ventricular response Now on Cardizem 180 mg daily Not a candidate for oral anticoagulation due to frequent transfusions of blood products History of chronic diastolic CHF Currently on Imdur, Lasix Chronic leg ulcer Wound care nurse input appreciated Her chronic medical conditions Continue outpatient medications Chronic pain syndrome Continue with pain management PT/OT to treat and eval Patient is refusing discharged to SNF Ever Fink MD Sep 11, 2016 12:06 PLAN- Stress test today. Consult cardiology. Consult wound care for her chronic leg ulcers. Serial troponin levels. Diltiazem p.o. Pepcid 20 milligrams b.i.d. for GI prophylaxis. Lasix 40 p.o. b.i.d. Heparin 5000 units subcu q.12 hours. MSIR p.r.n. for pain. MS Contin 15 milligrams b.i.d. for chronic pain. Spironolactone 50 b.i.d. Eyad chavez Telemetry. PT. OT. Ever Fink MD Sep 11, 2016 12:06
[2016-09-12] VITALS: BP 105/60; PULSE 62; RESP 16; TEMP 98; O2SAT 98
[2016-09-12 04:00] VITALS: BP 100/60; PULSE 68; RESP 16; TEMP 98.1; O2SAT 98
[2016-09-12] MEDS: MORPHINE SULFATE 30 MG TAB PO PRN ×3 (05:18→17:01)
[2016-09-12 08:00] VITALS: BP 108/56; PULSE 80; RESP 18; TEMP 97.8; O2SAT 95
[2016-09-12] MEDS: DILTIAZEM-CD 180 MG CAP ER PO SCH (08:38)
[2016-09-12] MEDS: ISOSORBIDE MONONITRATE 30 MG TAB PO SCH (08:38)
[2016-09-12] MEDS: SPIRONOLACTONE 50 MG TAB PO SCH ×2 (08:38→17:01)
[2016-09-12] MEDS: FAMOTIDINE 20 MG TAB PO SCH ×2 (08:39→21:51)
[2016-09-12] MEDS: FUROSEMIDE 40 MG TAB PO SCH ×2 (08:40→21:51)
[2016-09-12] MEDS: MORPHINE SULFATE 15 MG CONTROLLED RELEASE TAB PO SCH ×2 (08:40→21:51)
[2016-09-12] MEDS: DULoxetine HCl DR 20 MG CAP PO SCH (08:41)
[2016-09-12] MEDS: DOCUSATE SODIUM 50 MG/SENNA 8.6 MG TAB PO SCH ×2 (08:41→21:51)
[2016-09-12] MEDS: SODIUM CHLORIDE 0.9% FLUSH 10 ML FLUSH IV FLUSH SCH ×2 (08:41→21:52)
[2016-09-12] MEDS: HEPARIN SODIUM - SQ 10,000 UNITS/ML VIAL SQ SCH ×2 (08:44→21:52)
--- NOTE | 2016-09-12 09:05 | HHI.PR ---
Subjective Remarks Follow-up non-ST elevation PR/encephalopathy 09/11/16-patient seen and examined, complains of generalized weakness. She had stress test yesterday and denies any chest pain 09/12/16-patient seen and examined, requested she can stay 1 more day in hospital because she was still weak and unable to move as she would like to. Renal indices up Objective Vitals Vital Signs Date Time Temp Pulse Resp B/P Pulse Ox O2 Delivery O2 Flow Rate FiO2 09/12/16 04:00 98.1 68 16 100/60 98 100/60 09/12/16 00:00 98.0 62 16 105/60 98 09/12/16 00:00 Room Air 21 09/11/16 20:00 97.8 74 17 112/70 96 112/70 09/11/16 20:00 Room Air 09/11/16 20:00 77 09/11/16 16:05 Room Air 09/11/16 16:00 97.4 84 18 112/62 99 09/11/16 12:00 Room Air 09/11/16 11:30 97.6 104 18 96/80 99 I/O 09/11/16 09/11/16 09/11/16 09/12/16 09/12/16 09/12/16 07:00 15:00 23:00 07:00 15:00 23:00 Intake Total 440 ml 1400 ml 480 ml Output Total 500 ml 450 ml 300 ml 800 ml Balance -60 ml 950 ml -300 ml -320 ml Intake Oral 440 ml 1400 ml 480 ml Output Urine Total 500 ml 450 ml 300 ml 800 ml Result Diagram: 09/11/16 0525 09/11/16 0525 Objective Remarks GENERAL: NAD and frail elderly female SKIN: Warm and dry. HEAD: Normocephalic. EYES: No scleral icterus. No injection or drainage. NECK: Supple, trachea midline. No JVD or lymphadenopathy. CARDIOVASCULAR: Regular rate and rhythm without murmurs, gallops, or rubs. RESPIRATORY: Breath sounds equal bilaterally. No accessory muscle use. GASTROINTESTINAL: Abdomen soft, non-tender, nondistended. MUSCULOSKELETAL: No cyanosis, or edema. BACK: Nontender without obvious deformity. No CVA tenderness. A/P Problem List: (1) NSTEMI (non-ST elevated myocardial infarction) ICD Code: I21.4 Status: Acute (2) Renal insufficiency ICD Code: N28.9 Status: Acute (3) Afib ICD Code: I48.91 Status: Acute Assessment and Plan 75-year-old female with Non-ST elevation PR Borderline SPECT nuclear stress test Appreciate input from cardiology and continue current management Atrial fibrillation with rapid ventricular response Now on Cardizem 180 mg daily Not a candidate for oral anticoagulation due to frequent transfusions of blood products History of chronic diastolic CHF Currently on Imdur, Lasix Chronic leg ulcer Wound care nurse input appreciated Her chronic medical conditions Continue outpatient medications Chronic pain syndrome Continue with pain management PT/OT to treat and eval Patient is refusing discharged to SNF Acute on chronic kidney disease stage III Renal indices slightly up Monitor BUN and creatinine and avoid all nephrotoxic drugs Discharge Planning Likely discharge 09/13/16 Ever Fink MD Sep 12, 2016 09:05
[2016-09-12 12:00] VITALS: BP 110/46; PULSE 65; RESP 18; TEMP 97.8; O2SAT 98
[2016-09-12] MEDS: MORPHINE SULFATE 8 MG/ML INJ IV PUSH PRN ×2 (12:46→18:51)
[2016-09-12 16:00] VITALS: BP 92/50; PULSE 60; RESP 18; TEMP 97.4; O2SAT 96
[2016-09-12 20:00] VITALS: BP_SYST 96; BP_SYST 98; BP_DIAS 56; PULSE 56; PULSE 61; RESP 16; TEMP 98.3; O2SAT 95
[2016-09-13] VITALS: PULSE 76; RESP 18; TEMP 98.7; O2SAT 97
[2016-09-13] MEDS: MORPHINE SULFATE 8 MG/ML INJ IV PUSH PRN ×4 (00:23→17:50)
[2016-09-13 04:00] VITALS: BP 100/60; PULSE 74; RESP 18; TEMP 97.7; O2SAT 97
--- NOTE | 2016-09-13 07:17 | HHI.FPPN ---
Objective Vitals Vital Signs Date Time Temp Pulse Resp B/P Pulse Ox O2 Delivery O2 Flow Rate FiO2 09/13/16 04:00 97.7 74 18 100/60 97 09/13/16 00:00 Room Air 09/13/16 00:00 98.7 76 18 97 09/12/16 20:30 Room Air 09/12/16 20:00 98.3 61 16 95 09/12/16 20:00 56 09/12/16 20:00 98/56 96/56 09/12/16 16:00 97.4 60 18 92/50 96 09/12/16 12:00 97.8 65 18 110/46 98 09/12/16 08:00 98 Room Air 09/12/16 08:00 97.8 80 18 108/56 95 I/O 09/12/16 09/12/16 09/12/16 09/13/16 09/13/16 09/13/16 07:00 15:00 23:00 07:00 15:00 23:00 Intake Total 480 ml 1000 ml 240 ml 120 ml Output Total 800 ml 400 ml 400 ml 350 ml Balance -320 ml 600 ml -160 ml -230 ml Intake Oral 480 ml 1000 ml 240 ml 120 ml Output Urine Total 800 ml 400 ml 400 ml 350 ml # Bowel Movements 0 0 Result Diagram: 09/11/1652409/11/16524 Objective Remarks GENERAL: SKIN: Warm and dry. BLE ulcers HEAD: Atraumatic. Normocephalic. EYES: Pupils equal and round. No scleral icterus. No injection or drainage. ENT: No nasal bleeding or discharge. Mucous membranes pink and moist. NECK: Trachea midline. No JVD. CARDIOVASCULAR: Regular rate and rhythm. RESPIRATORY: No accessory muscle use. Clear to auscultation. Breath sounds equal bilaterally. GASTROINTESTINAL: Abdomen soft, non-tender, nondistended. Hepatic and splenic margins not palpable. MUSCULOSKELETAL: Extremities without clubbing, cyanosis, or edema. No obvious deformities. NEUROLOGICAL: Awake and alert. No obvious cranial nerve deficits. Motor grossly within normal limits. 1 out of 5 muscle strength in the arms and legs. Normal speech. PSYCHIATRIC: Appropriate mood and affect; insight and judgment normal. Alejandro Ellis MD Sep 13, 2016 07:17 ASSESSMENT- 1. Altered mental status likely due to dehydration 2. Non-ST elevation [place]. 3. SCHF 4. Anemia of chronic disease 5. Dehydration which is likely leading to her normal hemoglobin levels. 6. Recurrent transfusions. 7. Chronic pain syndrome. 8. Lumbar osteomyelitis history. 9. 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 10. Hypokalemia. 11. Hyponatremia. 12. Acute kidney injury. 13. Hyperglycemia. 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 PLAN- Stress test today. Consult cardiology. Consult wound care for her chronic leg ulcers. Serial troponin levels. Diltiazem p.o. Pepcid 20 milligrams b.i.d. for GI prophylaxis. Lasix 40 p.o. b.i.d. Heparin 5000 units subcu q.12 hours. MSIR p.r.n. for pain. MS Contin 15 milligrams b.i.d. for chronic pain. Spironolactone 50 b.i.d. Ambien p.r.n. Telemetry. PT. OT. Observation admission. A.m. labs. Alejandro Ellis MD Sep 13, 2016 07:17
[2016-09-13 08:00] VITALS: BP 98/54; PULSE 65; PULSE 78; RESP 20; TEMP 97.9; O2SAT 97
[2016-09-13] MEDS: HEPARIN SODIUM - SQ 10,000 UNITS/ML VIAL SQ SCH (09:00)
[2016-09-13] MEDS: FAMOTIDINE 20 MG TAB PO SCH (09:00)
[2016-09-13] MEDS: FUROSEMIDE 40 MG TAB PO SCH (09:05)
[2016-09-13] MEDS: DULoxetine HCl DR 20 MG CAP PO SCH (09:05)
[2016-09-13] MEDS: DOCUSATE SODIUM 50 MG/SENNA 8.6 MG TAB PO SCH (09:05)
[2016-09-13] MEDS: SPIRONOLACTONE 50 MG TAB PO SCH ×2 (09:05→17:44)
[2016-09-13] MEDS: DILTIAZEM-CD 180 MG CAP ER PO SCH (09:06)
[2016-09-13] MEDS: MORPHINE SULFATE 15 MG CONTROLLED RELEASE TAB PO SCH (09:06)
[2016-09-13] MEDS: ISOSORBIDE MONONITRATE 30 MG TAB PO SCH (09:06)
--- NOTE | 2016-09-13 09:16 | HHI.DCPOC ---
Discharge Care Plan Diagnosis: (1) Hypokalemia (2) Hyponatremia (3) Elevated troponin (4) Renal insufficiency (5) NSTEMI (non-ST elevated myocardial infarction) (6) Afib Goals to Promote Your Health * To prevent worsening of your condition and complications * To maintain your health at the optimal level Directions to Meet Your Goals Take your medications as prescribed Follow your dietary instruction Follow activity as directed Keep your appointments as scheduled Take your immunizations and boosters as scheduled If your symptoms worsen call your PCP, if no PCP go to Urgent Care Center or Emergency Room Smoking is Dangerous to Your Health. Avoid second hand smoke Call the 24-hour hour crisis hotline for domestic abuse at Alejandro Ellis MD Sep 13, 2016 09:16
--- NOTE | 2016-09-13 09:18 | HHI.DS ---
Discharge Summary Admission Date Sep 09, 2016 at 13:06 Discharge Date: Sep 13, 2016 Admitting Diagnosis NSTEMI, dehydration (1) NSTEMI (non-ST elevated myocardial infarction) (2) Renal insufficiency (3) Afib CBC/BMP: 09/11/16 0525 09/11/16 0525 Significant Findings Laboratory Tests Test 09/11/16 05:25 Red Blood Count 3.05 MIL/MM3 (4.00-5.30) Hemoglobin 9.7 GM/DL (11.6-15.3) Hematocrit 29.4 % (35.0-46.0) Neutrophils (%) (Auto) 73.1 % (16.0-70.0) Monocytes (%) (Auto) 11.1 % (0.0-8.0) Lymphocytes # (Auto) 0.8 TH/MM3 (1.0-4.8) Sodium Level 135 MEQ/L (136-145) Blood Urea Nitrogen 96 MG/DL (7-18) Creatinine 1.83 MG/DL (0.50-1.00) Estimat Glomerular Filtration 27 ML/MIN (>89) Rate Calcium Level 8.3 MG/DL (8.5-10.1) PE at Discharge GENERAL: SKIN: Warm and dry. stable leg ulcers HEAD: Atraumatic. Normocephalic. EYES: Pupils equal and round. No scleral icterus. No injection or drainage. ENT: No nasal bleeding or discharge. Mucous membranes pink and moist. NECK: Trachea midline. No JVD. CARDIOVASCULAR: Regular rate and rhythm. RESPIRATORY: No accessory muscle use. Clear to auscultation. Breath sounds equal bilaterally. GASTROINTESTINAL: Abdomen soft, non-tender, nondistended. Hepatic and splenic margins not palpable. MUSCULOSKELETAL: Extremities without clubbing, cyanosis, or edema. No obvious deformities. NEUROLOGICAL: Awake and alert. No obvious cranial nerve deficits. Motor grossly within normal limits. 2 out of 5 muscle strength in the arms and legs. Normal speech. PSYCHIATRIC: Appropriate mood and affect; insight and judgment normal. Hospital Course 75 y CF, HOSPITAL COURSE AND PLAN WAS TO - 1. Altered mental status likely due to dehydration 2. Non-ST elevation [place]. 3. SCHF 4. Anemia of chronic disease 5. Dehydration which is likely leading to her normal hemoglobin levels. 6. Recurrent transfusions. 7. Chronic pain syndrome. 8. Lumbar osteomyelitis history. 9. 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 10. Hypokalemia. 11. Hyponatremia. 12. Acute kidney injury. 13. Hyperglycemia. 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 PLAN- Stress test POS Consult cardiology. Consult wound care for her chronic leg ulcers. Serial troponin levels. Diltiazem p.o. Pepcid 20 milligrams b.i.d. for GI prophylaxis. Lasix 40 p.o. b.i.d. Heparin 5000 units subcu q.12 hours. MSIR p.r.n. for pain. MS Contin 15 milligrams b.i.d. for chronic pain. Spironolactone 50 b.i.d. Ambien p.r.n. Telemetry. PT. OT. DC Discharge Disposition: Disch w/ Home Health Serv Discharge Instructions DIET: Follow Instructions for: Heart Healthy Diet Activities you can perform: Regular-No Restrictions Follow up Referrals: PCP Follow-up - 2-3 Days Continued Medications: Diltiazem ER 24 HR (Dilt-Xr) 120 Mg Capdr 120 MG PO DAILY #30 Ref [address] (Duloxetine DR) 20 Mg Capdr 20 MG PO DAILY #30 Ref 0 CAP Famotidine (Famotidine) 20 Mg Tab 20 MG PO BID #60 Ref 0 TAB Furosemide (Furosemide) 40 Mg Tab 40 MG PO BID #60 Ref 0 TAB Isosorbide Mononitrate ER (Isosorbide Mononitrate ER) 30 Mg Louie 30 MG PO DAILY Prevent Chest Pain #30 Ref 0 TAB Morphine ER (Morphine ER) 15 Mg Tab 15 MG PO BID Pain Management Ref 0 TAB Morphine IR (Morphine IR) 30 Mg Tab 30 MG PO Q4H PRN PAIN Ref 0 TAB Spironolactone (Spironolactone) 50 Mg Tab 50 MG PO BIDPC #60 Ref 0 TAB Alejandro Ellis MD Sep 13, 2016 09:18
[2016-09-13 12:00] VITALS: BP 95/53; PULSE 71; RESP 20; TEMP 98.3; O2SAT 98
[2016-09-13] MEDS: SODIUM CHLORIDE 0.9% FLUSH 10 ML FLUSH IV FLUSH SCH (12:40)
[2016-09-13 16:00] VITALS: BP 100/55; PULSE 73; RESP 20; TEMP 98; O2SAT 96
[2016-09-13 20:05] VITALS: BP 102/55; PULSE 76; RESP 16; TEMP 98; O2SAT 97
--- NOTE | 2016-09-14 09:51 | HHI.FF ---
Face to Face Verification Diagnosis: (1) Elevated troponin (2) Renal insufficiency (3) NSTEMI (non-ST elevated myocardial infarction) (4) Afib (5) Hypokalemia (6) Hyponatremia Physical Therapy Order: Evaluate and Treat, Improve ambulation, Strength and gait training Occupational Therapy Order: Evaluate and Treat, Improve ADL, Gross motor coordination, Fine motor coordination Home Health Nursing Order: Medical education CHF education Medication education-adverse effect Wound care and dressing changes Nursing assessment with vital signs Telehealth Home Health Aide Order: To Assist In: Bathing and personal care, sql server dba developer and meal prep Information Security Manager Order: To Evaluate: Living conditions/environment, Support services Order: To Provide: Long range planning, Community services I have seen patient Melisa Nicolas on 09/14/16. My clinical findings support the need for the requested home health care services because: Ltd mobility - disease progression Patient has SOB Deconditioned w/ increased weakness Med compliance is questionable Limited ability to care for self Need for psychosocial assistance Impaired cognition/judgement High risk of falls Infection w/ risk of complications I certify that my clinical findings support that this patient is homebound because: Impaired cognitive ability/safety Unsteady gait/balance Unsafe to leave home unassisted Need for psychosocial assistance [id number] bed/chair Unable to use public transportation Poor cardiac reserve Alejandro Ellis MD Sep 14, 2016 09:51
== END 2016-09-13 21:37 | disposition home health service (06) ==
LOC: NEPE 10:28 → NEDA 13:06 → INTOOBSV 13:06 → N04B 16:16
PROVIDERS: ADMIT Family Medicine; ATTEND Family Medicine
DX: I21.4 Non-ST elevation (NSTEMI) myocardial infarction (principal); E87.6 Hypokalemia; E86.0 Dehydration; E87.1 Hypo-osmolality and hyponatremia; I48.91 Unspecified atrial fibrillation; R41.82 Altered mental status, unspecified; N28.9 Disorder of kidney and ureter, unspecified; I13.0 Hypertensive heart and chronic kidney disease with heart failure and stage 1 through stage 4 chronic kidney disease, or unspecified chronic kidney disease; I50.20 Unspecified systolic (congestive) heart failure; N18.3 Chronic kidney disease, stage 3 (moderate); D63.8 Anemia in other chronic diseases classified elsewhere; G89.4 Chronic pain syndrome; N17.9 Acute kidney failure, unspecified; R73.9 Hyperglycemia, unspecified; R74.8 Abnormal levels of other serum enzymes; L97.929 Non-pressure chronic ulcer of unspecified part of left lower leg with unspecified severity; M40.209 Unspecified kyphosis, site unspecified; R94.02 Abnormal brain scan; C90.30 Solitary plasmacytoma not having achieved remission; Z79.899 Other long term (current) drug therapy
CPT/HCPCS: 70450; 70551; 71010; 78452; 80048; 80053; 82550; 83735; 83880; 84484; 85025; 85610; 85730; 86077; 86850; 86870; 86880; 86900; 86901; 86902; 86920; 86922; 87641; 93005; 93017; 93880; 97162; 97166; 97535; 99285; A9502; G8987; G8988; J1644; J2270; J2785; J3480; J7030; G0378

== ENCOUNTER 2016-09-16 15:53 | Inpatient (IN) | payer MEDICARE ==
[~2016-09-16] VITALS: Ht 162.6 cm; Wt 45.6 kg
[~2016-09-16 15:53] MED LIST: DILT120C43 PO; DULO1CAP PO; FAMO20TA2 PO; FURO40TA PO; ISOS30TA3 PO; MORP1TAB24 PO; MSIR30 PO; SPIR50TA PO
[2016-09-16 15:58] VITALS: BP 99/58; PULSE 100; RESP 14; TEMP 98.3; O2SAT 99
--- NOTE | 2016-09-16 16:17 | PD ---
Physical Exam Time Seen by Provider: 16:14 Narrative 75yo F c/o continued weakness and dehydration after being discharged Tuesday for same complaints. Sent by PCP for reevaluation. Patient seen in triage. VS reviewed. Awaiting bed placement. Data Data Last Documented VS Vital Signs Date Time Temp Pulse Resp B/P Pulse Ox O2 Delivery O2 Flow Rate FiO2 09/16/16 15:58 98.3 100 14 99/58 99 Room Air [facility] Supervised Visit with DEANDRA: Anastasia Villanueva Sep 16, 2016 16:17
--- NOTE | 2016-09-16 18:07 | PD ---
HPI Chief Complaint: General Weakness Time Seen by Provider: 17:59 Travel History International Travel<30 days: No Contact w/Intl Traveler<30days: No Traveled to known affect area: No History of Present Illness HPI Patient is a 75-year-old female presents emergency department for evaluation of dehydration. The patient's chief complaint is actually low back pain which is chronic for her. Patient was recently admitted for an STEMI and dehydration, she has a home health nurse who came by to visit her and stated that she looked very weak and dehydrated recommended to Dr. Ellis her primary care physician that she return the emergency department for evaluation and admission for dehydration. Patient denies any fever, she did have some chest pain earlier in the day and endorses some mild nausea without vomiting. Denies any abdominal pain. PFSH Past Medical History Anemia: Yes Asthma: Yes Blood Disorders: Yes (seeing a employment consultant) Heart Rhythm Problems: Yes Cancer: No Cardiovascular Problems: Yes (CHF ) High Cholesterol: No Congestive Heart Failure: Yes Endocrine: No Genitourinary: No Hypertension: Yes Immune Disorder: No Neurologic: No Psychiatric: No Reproductive: No Respiratory: Yes Past Surgical History Abdominal Surgery: Yes Body Medical Devices: [employer]AP[employer] Cardiac Surgery: Yes Ear Surgery: No Eye Surgery: No Gynecologic Surgery: Yes (HYSTERECTOMY) Hysterectomy: Yes Oral Surgery: No Social History Alcohol Use: No Tobacco Use: No Substance Use: No Allergies-Medications (Allergen,Severity, Reaction): Coded Allergies: Compazine (Verified Allergy, Unknown, 09/16/16) Penicillin (Verified Allergy, Unknown, 09/16/16) Reported Meds & Prescriptions Reported Meds & Active Scripts Active Percocet (Oxycodone-Acetaminophen) 5-325 mg Tab 1-2 Tab PO Q6H PRN Macrobid (Nitrofurantoin Monoh/Nitrofur Macro) 100 Mg Cap 100 Mg PO BID 5 Days Reported Famotidine 20 Mg Tab 20 Mg PO BID Spironolactone 50 Mg Tab 50 Mg PO BIDPC Isosorbide Mononitrate ER (Isosorbide Mononitrate) 30 Mg Louie 30 Mg PO DAILY Furosemide 40 Mg Tab 40 Mg PO BID Duloxetine DR (Duloxetine HCl) 20 Mg Capdr 20 Mg PO DAILY Morphine IR (Morphine Sulfate) 30 Mg Tab 30 Mg PO Q4H PRN Dilt-Xr (Diltiazem HCl) 120 Mg Capdr 120 Mg PO DAILY Review of Systems Except as stated in HPI: all other systems reviewed are Neg Physical Exam Narrative GENERAL: Well-developed, well-nourished, severe kyphosis of what appears to be both the cervical and thoracic spine. SKIN: Decreased skin turgor. HEAD: Atraumatic. Normocephalic. EYES: Pupils equal and round. No scleral icterus. No injection or drainage. ENT: No nasal bleeding or discharge. Mucous membranes pink and moist. NECK: Trachea midline. No JVD. CARDIOVASCULAR: Regular rate and rhythm. No murmur appreciated. RESPIRATORY: No accessory muscle use. Clear to auscultation. Breath sounds equal bilaterally. GASTROINTESTINAL: Abdomen soft, non-tender, nondistended. Hepatic and splenic margins not palpable. MUSCULOSKELETAL: No obvious deformities. No clubbing. No cyanosis. No edema. No midline CT or L-spine tenderness observed. NEUROLOGICAL: Awake and alert. No obvious cranial nerve deficits. Motor grossly within normal limits. Normal speech. PSYCHIATRIC: Appropriate mood and affect; insight and judgment normal. Data Data Last Documented VS Vital Signs Date Time Temp Pulse Resp B/P Pulse Ox O2 Delivery O2 Flow Rate FiO2 09/16/16 21:30 99 14 100/56 99 Room Air 09/16/16 15:58 98.3 Orders Electrocardiogram (09/16/16 ) Complete Blood Count With Diff (09/16/16 18:06) Comprehensive Metabolic Panel (09/16/16 18:06) Iv Access Insert/Monitor (09/16/16 18:06) Ecg Monitoring (09/16/16 18:06) Oximetry (09/16/16 18:06) Sodium Chloride 0.9% Flush (Ns Flush) (09/16/16 18:15) Sodium Chlorid 0.9% 500 Ml Inj (Ns 500 M (09/16/16 18:15) Troponin I (09/16/16 18:16) Morphine Inj (Morphine Inj) (09/16/16 18:45) Urinalysis - C+S If Indicated (09/16/16 20:19) Cath For Specimen (09/16/16 20:19) Hydromorphone Pf Inj (Dilaudid Pf Inj) (09/16/16 20:30) Urine Culture (09/16/16 20:39) Ceftriaxone Inj (Rocephin Inj) (09/16/16 21:30) Hydromorphone Pf Inj (Dilaudid Pf Inj) (09/16/16 21:45) Admit Order (Ed Use Only) (09/16/16 21:54) Chest, Single Ap (09/16/16 ) Labs Laboratory Tests Test 09/16/16 09/16/16 18:30 20:39 White Blood Count 11.0 TH/MM3 Red Blood Count 3.18 MIL/MM3 Hemoglobin 10.3 GM/DL Hematocrit 30.0 % Mean Corpuscular Volume 94.4 FL Mean Corpuscular Hemoglobin 32.3 PG Mean Corpuscular Hemoglobin 34.2 % Concent Red Cell Distribution Width 15.8 % Platelet Count 389 TH/MM3 Mean Platelet Volume 8.5 FL Neutrophils (%) (Auto) 84.0 % Lymphocytes (%) (Auto) 5.4 % Monocytes (%) (Auto) 9.9 % Eosinophils (%) (Auto) 0.3 % Basophils (%) (Auto) 0.4 % Neutrophils # (Auto) 9.2 TH/MM3 Lymphocytes # (Auto) 0.6 TH/MM3 Monocytes # (Auto) 1.1 TH/MM3 Eosinophils # (Auto) 0.0 TH/MM3 Basophils # (Auto) 0.0 TH/MM3 CBC Comment DIFF FINAL Differential Comment Sodium Level 133 MEQ/L Potassium Level 4.2 MEQ/L Chloride Level 96 MEQ/L Carbon Dioxide Level 25.6 MEQ/L Anion Gap 11 MEQ/L Blood Urea Nitrogen 73 MG/DL Creatinine 1.18 MG/DL Estimat Glomerular Filtration 45 ML/MIN Rate Random Glucose 100 MG/DL Calcium Level 8.5 MG/DL Total Bilirubin 1.1 MG/DL Aspartate Amino Transf 24 U/L (AST/SGOT) Alanine Aminotransferase 23 U/L (ALT/SGPT) Alkaline Phosphatase 106 U/L Troponin I 0.06 NG/ML Total Protein 8.6 GM/DL Albumin 3.0 GM/DL Urine Color YELLOW Urine Turbidity CLEAR Urine pH 6.5 Urine Specific [place] 1.014 Urine Protein TRACE mg/dL Urine Glucose (UA) NEG mg/dL Urine Ketones NEG mg/dL Urine Occult Blood NEG Urine Nitrite NEG Urine Bilirubin NEG Urine Urobilinogen 2.0 MG/DL Urine Leukocyte Esterase MOD Urine RBC LESS THAN 1 /hpf Urine WBC 15 /hpf Urine Squamous Epithelial <1 /hpf Cells Urine Bacteria MOD /hpf Microscopic Urinalysis Comment CATH-CULTURE IND MDM Medical Decision Making Medical Screen Exam Complete: Yes Emergency Medical Condition: Yes Interpretation(s) EKG shows atrial fibrillation a rate of 103, borderline left axis deviation, abnormal R-wave progression. No concerning ST segment changes. This an abnormal EKG. Differential Diagnosis Dehydration, failure to thrive, chronic low back pain, kyphosis. Narrative Course 75-year-old female presents emergency department for evaluation of dehydration, she states that she has had some chronic lower back pain which is gradually worsening. Sent up here by her home health nurse. Primary care physician is Dr. Ellis. Basic laboratory is been ordered and sent, discussed with Dr. Lima in 1899 shift change to follow-up labs and disposition the patient appropriately. Scripts Oxycodone-Acetaminophen (Percocet)5-325 mg Tab1-2 Tab PO Q6H PRN (PAIN SCALE 6 TO 10) #20 TAB Ref 0 Prov:Mil Lima MD 09/16/16 Nitrofurantoin Monohydrate Macrocrystals (Macrobid)100 Mg [id number] Mg PO BID 5 Days Ref 0 Prov:Mil Lima MD 09/16/16 Garret Oleary MD Sep 16, 2016 18:07
[2016-09-16] MEDS ORDERED: SODIUM CHLORIDE 0.9% FLUSH 10 ML FLUSH IV FLUSH PRN ×2 (18:15→22:00)
[2016-09-16] MEDS ORDERED: SODIUM CHLORID 0.9% 500 ML INJ 500 ML IV ONE (18:15)
[2016-09-16] MEDS ORDERED: MORPHINE SULFATE 4 MG/ML INJ IV PUSH ONE (18:45)
[2016-09-16 19:15] VITALS: BP 102/64; PULSE 99; RESP 16; O2SAT 97
[2016-09-16 19:23] LABS: AUTOMATED NEUTROPHIL # 9.2 TH/MM3 (1.8-7.7); BASOPHIL % 0.4 % (0.0-2.0); EOSINOPHIL % 0.3 % (0.0-4.0); HEMO FLAGS DIFF FINAL; LYMPH % 5.4 % (9.0-44.0); LYMPHOCYTE # 0.6 TH/MM3 (1.0-4.8); MEAN CELL VOLUME 94.4 FL (80.0-100.0); MEAN CORPUSCULAR HEMOGLOBIN 32.3 PG (27.0-34.0); MEAN CORPUSCULAR HGB CONC 34.2 % (32.0-36.0); MONO % 9.9 % (0.0-8.0); PLATELET COUNT 389 TH/MM3 (150-450); RED BLOOD COUNT 3.18 MIL/MM3 (4.00-5.30); RED CELL DISTRIBUTION WIDTH 15.8 % (11.6-17.2)
[2016-09-16 19:48] LABS: ALT (GPT) 23 U/L (10-53); ANION GAP 11 MEQ/L (5-15); AST (GOT) 24 U/L (15-37); BICARBONATE 25.6 MEQ/L (21.0-32.0); BLOOD UREA NITROGEN 73 MG/DL (7-18); CHLORIDE 96 MEQ/L (98-107); POTASSIUM 4.2 MEQ/L (3.5-5.1); SODIUM (NA) 133 MEQ/L (136-145)
[2016-09-16 19:52] LABS: ALKALINE PHOSPHATASE 106 U/L (45-117); GLOMERULAR FILTRATION RATE 45 ML/MIN (>89); TOTAL BILIRUBIN ADULT 1.1 MG/DL (0.2-1.0)
[2016-09-16 20:25] VITALS: BP 98/60; PULSE 102; RESP 16; O2SAT 100
[2016-09-16] MEDS ORDERED: HYDROmorphone HCL PF 1 MG/ML VIAL IV PUSH ONE ×2 (20:30→21:45)
--- NOTE | 2016-09-16 20:44 | PD ---
Data Data Last Documented VS Vital Signs Date Time Temp Pulse Resp B/P Pulse Ox O2 Delivery O2 Flow Rate FiO2 09/16/16 15:58 98.3 100 14 99/58 99 Room Air Orders Electrocardiogram (09/16/16 ) Complete Blood Count With Diff (09/16/16 18:06) Comprehensive Metabolic Panel (09/16/16 18:06) Iv Access Insert/Monitor (09/16/16 18:06) Ecg Monitoring (09/16/16 18:06) Oximetry (09/16/16 18:06) Sodium Chloride 0.9% Flush (Ns Flush) (09/16/16 18:15) Sodium Chlorid 0.9% 500 Ml Inj (Ns 500 M (09/16/16 18:15) Troponin I (09/16/16 18:16) Morphine Inj (Morphine Inj) (09/16/16 18:45) Urinalysis - C+S If Indicated (09/16/16 20:19) Cath For Specimen (09/16/16 20:19) Hydromorphone Pf Inj (Dilaudid Pf Inj) (09/16/16 20:30) Urine Culture (09/16/16 20:39) Ceftriaxone Inj (Rocephin Inj) (09/16/16 21:30) Hydromorphone Pf Inj (Dilaudid Pf Inj) (09/16/16 21:45) Admit Order (Ed Use Only) (09/16/16 21:54) Chest, Single Ap (09/16/16 ) Labs Laboratory Tests Test 09/16/16 09/16/16 18:30 20:39 White Blood Count 11.0 TH/MM3 Red Blood Count 3.18 MIL/MM3 Hemoglobin 10.3 GM/DL Hematocrit 30.0 % Mean Corpuscular Volume 94.4 FL Mean Corpuscular Hemoglobin 32.3 PG Mean Corpuscular Hemoglobin 34.2 % Concent Red Cell Distribution Width 15.8 % Platelet Count 389 TH/MM3 Mean Platelet Volume 8.5 FL Neutrophils (%) (Auto) 84.0 % Lymphocytes (%) (Auto) 5.4 % Monocytes (%) (Auto) 9.9 % Eosinophils (%) (Auto) 0.3 % Basophils (%) (Auto) 0.4 % Neutrophils # (Auto) 9.2 TH/MM3 Lymphocytes # (Auto) 0.6 TH/MM3 Monocytes # (Auto) 1.1 TH/MM3 Eosinophils # (Auto) 0.0 TH/MM3 Basophils # (Auto) 0.0 TH/MM3 CBC Comment DIFF FINAL Differential Comment Sodium Level 133 MEQ/L Potassium Level 4.2 MEQ/L Chloride Level 96 MEQ/L Carbon Dioxide Level 25.6 MEQ/L Anion Gap 11 MEQ/L Blood Urea Nitrogen 73 MG/DL Creatinine 1.18 MG/DL Estimat Glomerular Filtration 45 ML/MIN Rate Random Glucose 100 MG/DL Calcium Level 8.5 MG/DL Total Bilirubin 1.1 MG/DL Aspartate Amino Transf 24 U/L (AST/SGOT) Alanine Aminotransferase 23 U/L (ALT/SGPT) Alkaline Phosphatase 106 U/L Troponin I 0.06 NG/ML Total Protein 8.6 GM/DL Albumin 3.0 GM/DL Urine Color YELLOW Urine Turbidity CLEAR Urine pH 6.5 Urine Specific [place] 1.014 Urine Protein TRACE mg/dL Urine Glucose (UA) NEG mg/dL Urine Ketones NEG mg/dL Urine Occult Blood NEG Urine Nitrite NEG Urine Bilirubin NEG Urine Urobilinogen 2.0 MG/DL Urine Leukocyte Esterase MOD Urine RBC LESS THAN 1 /hpf Urine WBC 15 /hpf Urine Squamous Epithelial <1 /hpf Cells Urine Bacteria MOD /hpf Microscopic Urinalysis Comment CATH-CULTURE IND MDM Medical Record Reviewed: Yes Supervised Visit with DEANDRA: No Narrative Course CBC & BMP Diagram 09/16/16 18:30 Tn 0.06 (similar to priors) Myocardial perfusion scan equivocal for ischemia from about 5 days ago LFTs essentially normal UA: cystitis INR 1.1 EKG: afib, rate 103, st changes V2 noted Pt has received 4mg morphine iv and 0.5mg dilaudid x two. Rocephin started. Pt lives alone and typically has her brother fill her scripts. On exam there is minimal TTP midline lower thoracic spine; plain film PA/lat added on. d/w Dr Daniel for [facility]. Pt received 500cc NS. Diagnosis Primary Impression: Back pain Qualified Code: M54.5 - Chronic midline low back pain without sciatica Additional Impression: Cystitis Referrals: Alejandro Ellis MD 2 days Additional Instruction: You have a choice when it comes to health care, and we are glad that you chose [facility]. Hopefully, we have met your expectations on today's visit. You are welcome to return to [facility] at any time, as we are committed to meeting the health care needs of our community. Med/Other Pt SpecificInfo: Prescription(s) given Scripts Oxycodone-Acetaminophen (Percocet)5-325 mg Tab1-2 Tab PO Q6H PRN (PAIN SCALE 6 TO 10) #20 TAB Ref 0 Prov:Mil Lima MD 09/16/16 Nitrofurantoin Monohydrate Macrocrystals (Macrobid)100 Mg Oxl350 Mg PO BID 5 Days Ref 0 Prov:Mil Lima MD 09/16/16 Disposition: 01 DISCHARGE HOME Condition: Stable Mil Lima MD Sep 16, 2016 20:44
[2016-09-16 21:11] LABS: BACTERIA, URINE MOD /hpf; BLOOD, URINE NEG (NEG); GLUCOSE,URINE NEG (NEG); KETONE, URINE NEG (NEG); NITRITE,URINE NEG (NEG); PH, URINE 6.5 (5.0-8.5); SQUAMOUS EPITHELIAL CELL URINE <1 /hpf (0-5); URINE COLOR YELLOW (YELLW/STRAW)
[2016-09-16 21:12] LABS: COMMENT (UR) CATH-CULTURE IND; CULTURE IF INDICATED CATH CULTURE IND
[2016-09-16 21:30] VITALS: BP 100/56; PULSE 99; RESP 14; O2SAT 99
[2016-09-16] MEDS ORDERED: cefTRIAXone INJ 1,000 MG in SODIUM CHLORIDE 0.9% INJ 100 ML IV ONE (21:30)
[2016-09-16] MEDS ORDERED: MACR100C2 PO (21:37)
[2016-09-16] MEDS ORDERED: PERC5TAB12 PO (21:37)
[2016-09-16] MEDS ORDERED: NALOXONE HCL 0.4 MG/ML AMP IV PRN (22:00)
--- NOTE | 2016-09-16 22:16 | RADRPT ---
EXAM DATE/TIME: 09/16/2016 21:58 [place] COMPARISON: CHEST SINGLE AP, September 09, 2016, 11:12. INDICATIONS : Chest pain MEDICAL HISTORY : Cardiovascular disease. Hypertension SURGICAL HISTORY : [id number] ENCOUNTER: Initial ACUITY: 1 day PAIN SCORE: Non-responsive. LOCATION: Bilateral chest FINDINGS: No infiltrate, effusion or pneumothorax demonstrated. Heart size stable, within normal limits. Thorac ic aorta is tortuous. Right IJ [id number] catheter with tip at atrial caval junction again noted. 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 I believe there is anterior di slocation of the left glenohumeral joint, presumably chronic. CONCLUSION: No evidence of acute cardiopulmonary disease. Chronic findings of the shoulders again noted. Sterling South MD on September 16, 2016 at 22:13 Board Certified Radiologist. This report was verified electronically.
[2016-09-16 22:46] VITALS: BP 101/62; PULSE 98; RESP 16; O2SAT 98
[2016-09-17] VITALS (10 sets, daily range): BP systolic 99–138; BP diastolic 61–77; PULSE 85–106; RESP 14–19; TEMP 97.5–98.5; O2SAT 96–100
[2016-09-17] MEDS ORDERED: HYDROmorphone HCL PF 1 MG/ML VIAL IV PUSH ONE (03:15)
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
[2016-09-17] MEDS ORDERED: HYDROmorphone HCL PF 1 MG/ML VIAL IV PUSH PRN (03:45)
[2016-09-17] MEDS: ENOXAPARIN SODIUM 40 MG/0.4 ML SYRINGE SQ SCH (06:20)
[2016-09-17] MEDS: HYDROmorphone HCL PF 1 MG/ML VIAL IV PUSH PRN ×5 (06:28→22:53)
[2016-09-17] MEDS: DILTIAZEM-CD 120 MG CAP ER PO SCH (08:39)
[2016-09-17] MEDS: DULoxetine HCl DR 20 MG CAP PO SCH (08:39)
[2016-09-17] MEDS: FUROSEMIDE 40 MG TAB PO SCH ×2 (08:39→21:02)
[2016-09-17] MEDS: ISOSORBIDE MONONITRATE 30 MG TAB PO SCH (08:39)
[2016-09-17] MEDS: FAMOTIDINE 20 MG TAB PO SCH ×2 (08:39→21:02)
[2016-09-17] MEDS: SODIUM CHLORIDE 0.9% FLUSH 10 ML FLUSH IV FLUSH SCH ×2 (08:41→21:02)
[2016-09-17] MEDS: SPIRONOLACTONE 50 MG TAB PO SCH ×2 (08:41→18:26)
[2016-09-17] MEDS ORDERED: GADODIAMIDE PF 287 MG/ML 10 ML VIAL (for RAD MRI) IV ONE (10:05)
[2016-09-17 10:12] LABS: BASOPHIL % 0.4 % (0.0-2.0); EOSINOPHIL % 0.5 % (0.0-4.0); HEMATOCRIT 27.7 % (35.0-46.0); HEMO FLAGS DIFF FINAL; LYMPHOCYTE # 0.6 TH/MM3 (1.0-4.8); MEAN CELL VOLUME 95.3 FL (80.0-100.0); MEAN CORPUSCULAR HEMOGLOBIN 33.1 PG (27.0-34.0); MEAN CORPUSCULAR HGB CONC 34.7 % (32.0-36.0); MONO % 9.6 % (0.0-8.0); NEUT % 83.5 % (16.0-70.0); PLATELET COUNT 379 TH/MM3 (150-450); RED BLOOD COUNT 2.91 MIL/MM3 (4.00-5.30); RED CELL DISTRIBUTION WIDTH 15.9 % (11.6-17.2); WHITE BLOOD COUNT 9.6 TH/MM3 (4.0-11.0)
[2016-09-17 10:45] LABS: BICARBONATE 26.8 MEQ/L (21.0-32.0); POTASSIUM 3.8 MEQ/L (3.5-5.1)
--- NOTE | 2016-09-17 10:53 | RADRPT ---
EXAM DATE/TIME: 09/17/2016 09:37 [place] COMPARISON: No previous studies available for comparison. INDICATIONS : Intractable back pain. CONTRAST: 8 cc Omniscan (gadodiamide) IV MEDICAL HISTORY : Congestive heart failure. Hepatitis. SURGICAL HISTORY : Hysterectomy. Fusion, lumbar. Skin grafts, abdominal sx, port ENCOUNTER: Subsequent ACUITY: 1 week PAIN SCORE: 3/10 LOCATION: Lower back TECHNIQUE: Multiplanar multisequence MRI of the lumbar spine was performed with and without contrast. FINDINGS: MRI of the lumbar spine was performed in this individual with intractable back pain, status post fixa tion from L4 to S2. The bones are diffusely osteopenic. There is anterior wedging of L1 that is not acute by MRI. T12-L1: The conus is at T12-L1 and unremarkable. L1-L2: There is mild bulging at L1-2 without significant spinal stenosis, neural foramina adequate. L2-L3: There is mild bulging L2-3 causing some flattening of anterior thecal space, neural foramina adequate . L3-L4: There is generalized bulging L3-4 without significant spinal stenosis, neural foramina adequate. Transpedicular fixation is present at L4. L4-L5: The level is unremarkable. L5-S1: There is anterolisthesis of L5 on S1 at least grade 2 associated with extensive degenerative changes in the facets. There is some lateral recess stenosis. I do not have any prior films for comparison. [place] would be that the fixation for this anterol isthesis. CONCLUSION: Probable all chronic changes in the lumbar spine. There is no evidence for an acute compression. Adriel Toro MD FACR on September 17, 2016 at 10:43 Board Certified Radiologist. This report was verified electronically.
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
[2016-09-17] MEDS ORDERED: LACTULOSE SYRUP 20 GM/30 ML CUP PO PRN (16:30)
[2016-09-17] MEDS ORDERED: MAGNESIUM HYDROXIDE SUSP 30 ML CUP PO PRN (16:30)
[2016-09-17] MEDS ORDERED: BISACODYL 10 MG SUPP RECTAL PRN (16:30)
[2016-09-17] MEDS ORDERED: ONDANSETRON HCL 4 MG/2 ML VIAL IVP PRN (16:30)
[2016-09-17] MEDS ORDERED: SENNOSIDES 8.6 MG TAB PO PRN (16:30)
[2016-09-17] MEDS ORDERED: MSIR15 PO (17:03)
[2016-09-17] MEDS ORDERED: MORP1TAB25 PO (17:03)
[2016-09-17] MEDS: DOCUSATE SODIUM 50 MG/SENNA 8.6 MG TAB PO SCH (21:02)
[2016-09-17] MEDS: ACETAMINOPHEN/HYDROcodone 325 MG/5 MG TAB PO PRN (21:02)
--- NOTE | 2016-09-17 22:41 | EKG ---
Date Performed: 09/16/2016 Time Performed: 18:12:32 PTAGE: 75 years EKG: ATRIAL FIBRILLATION WITH RAPID VENTRICULAR RESPONSE ABNORMAL ECG PREVIOUS TRACING : 09/09/2016 11.39 DOCTOR: Jackie Patricia Interpretating Date/Time 09/17/2016 22:40:35
[2016-09-18] VITALS (7 sets, daily range): BP systolic 96–108; BP diastolic 52–66; PULSE 76–101; RESP 16–18; TEMP 96.8–99.7; O2SAT 96–99
[2016-09-18] MEDS: HYDROmorphone HCL PF 1 MG/ML VIAL IV PUSH PRN ×5 (03:34→22:15)
[2016-09-18] MEDS: ENOXAPARIN SODIUM 40 MG/0.4 ML SYRINGE SQ SCH (05:19)
[2016-09-18] MEDS: ACETAMINOPHEN/HYDROcodone 325 MG/5 MG TAB PO PRN (06:10)
[2016-09-18] MEDS: SPIRONOLACTONE 50 MG TAB PO SCH ×2 (07:48→18:48)
[2016-09-18] MEDS: DULoxetine HCl DR 20 MG CAP PO SCH (07:48)
[2016-09-18] MEDS: DOCUSATE SODIUM 50 MG/SENNA 8.6 MG TAB PO SCH ×2 (07:48→20:32)
[2016-09-18] MEDS: DILTIAZEM-CD 120 MG CAP ER PO SCH (07:48)
[2016-09-18] MEDS: FAMOTIDINE 20 MG TAB PO SCH ×2 (07:48→20:32)
[2016-09-18] MEDS: ISOSORBIDE MONONITRATE 30 MG TAB PO SCH (07:48)
[2016-09-18] MEDS: SODIUM CHLORIDE 0.9% FLUSH 10 ML FLUSH IV FLUSH SCH ×2 (07:49→20:33)
[2016-09-18] MEDS: FUROSEMIDE 40 MG TAB PO SCH ×2 (07:49→20:32)
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
[2016-09-18] MEDS: oxyCODONE/ACETAMINOPHEN 5 MG/325 MG TAB PO PRN ×2 (10:29→18:48)
[2016-09-18] MEDS ORDERED: Vancomycin Consult Pharmacy 1 EA OTHER SCH (15:30)
[2016-09-18] MEDS ORDERED: VANCOMYCIN INJ 1,000 MG in SODIUM CHLOR 0.9% 250 ML INJ 250 ML IV ONE (15:30)
[2016-09-18] MEDS ORDERED: VANCOMYCIN INJ 750 MG in SODIUM CHLOR 0.9% 250 ML INJ 250 ML IV ONE (17:00)
[2016-09-18] MEDS ORDERED: ACETAMINOPHEN 325 MG TAB PO PRN (21:30)
[2016-09-18] MEDS ORDERED: diphenhydrAMINE HCL 25 MG CAP PO ONE (21:30)
[2016-09-19] VITALS (8 sets, daily range): BP systolic 86–123; BP diastolic 54–63; PULSE 64–103; RESP 14–18; TEMP 97.7–99.6; O2SAT 96–100
[2016-09-19] MEDS: HYDROmorphone HCL PF 1 MG/ML VIAL IV PUSH PRN ×4 (03:42→21:48)
[2016-09-19] MEDS: ENOXAPARIN SODIUM 40 MG/0.4 ML SYRINGE SQ SCH (05:53)
[2016-09-19] MEDS: oxyCODONE/ACETAMINOPHEN 5 MG/325 MG TAB PO PRN ×3 (05:53→20:12)
[2016-09-19 06:46] LABS: AUTOMATED NEUTROPHIL # 7.8 TH/MM3 (1.8-7.7); BASOPHIL # 0.1 TH/MM3 (0-0.2); BASOPHIL % 0.8 % (0.0-2.0); EOSINOPHIL # 0.2 TH/MM3 (0-0.4); EOSINOPHIL % 2.4 % (0.0-4.0); HEMATOCRIT 25.4 % (35.0-46.0); LYMPH % 3.8 % (9.0-44.0); LYMPHOCYTE # 0.3 TH/MM3 (1.0-4.8); MEAN CELL VOLUME 96.3 FL (80.0-100.0); MEAN CORPUSCULAR HGB CONC 33.3 % (32.0-36.0); MONO % 3.8 % (0.0-8.0); NEUT % 89.2 % (16.0-70.0); PLATELET COUNT 316 TH/MM3 (150-450); RED BLOOD COUNT 2.64 MIL/MM3 (4.00-5.30); RED CELL DISTRIBUTION WIDTH 16.4 % (11.6-17.2); WHITE BLOOD COUNT 8.8 TH/MM3 (4.0-11.0)
[2016-09-19 06:55] LABS: HEMO FLAGS AUTO DIFF
[2016-09-19 07:09] LABS: ANION GAP 6 MEQ/L (5-15); AST (GOT) 25 U/L (15-37); BICARBONATE 29.1 MEQ/L (21.0-32.0); BLOOD UREA NITROGEN 51 MG/DL (7-18); CHLORIDE 97 MEQ/L (98-107); GLOMERULAR FILTRATION RATE 39 ML/MIN (>89); POTASSIUM 3.9 MEQ/L (3.5-5.1); SODIUM (NA) 132 MEQ/L (136-145)
[2016-09-19 07:10] LABS: ALT (GPT) 20 U/L (10-53)
[2016-09-19 07:13] LABS: ALKALINE PHOSPHATASE 90 U/L (45-117); TOTAL BILIRUBIN ADULT 0.6 MG/DL (0.2-1.0)
[2016-09-19 07:31] LABS: BANDS 3 % (0-6); EOSINOPHILS 2 % (0-4); METAMYELOCYTES 1 % (0-1); MYELOCYTES 1 % (0-0); NEUTROPHIL # MANUAL DIFF 8.1 TH/MM3 (1.8-7.7); PLATELET ESTIMATE SMEAR NORMAL (NORMAL); PLATELET MORPHOLOGY NORMAL (NORMAL); POLYS (SEG NEUTROPHILS) 87 % (16-70); SCAN/DIFF FINAL DIFF MANUAL; WBC DIFF SAMPLE 100
[2016-09-19] MEDS: ISOSORBIDE MONONITRATE 30 MG TAB PO SCH (08:39)
[2016-09-19] MEDS: DOCUSATE SODIUM 50 MG/SENNA 8.6 MG TAB PO SCH ×2 (08:39→20:12)
[2016-09-19] MEDS: SPIRONOLACTONE 50 MG TAB PO SCH ×2 (08:39→18:11)
[2016-09-19] MEDS: SODIUM CHLORIDE 0.9% FLUSH 10 ML FLUSH IV FLUSH SCH ×2 (08:39→20:13)
[2016-09-19] MEDS: FUROSEMIDE 40 MG TAB PO SCH ×2 (08:39→20:12)
[2016-09-19] MEDS: DILTIAZEM-CD 120 MG CAP ER PO SCH (08:39)
[2016-09-19] MEDS: FAMOTIDINE 20 MG TAB PO SCH ×2 (08:39→20:12)
[2016-09-19] MEDS: DULoxetine HCl DR 20 MG CAP PO SCH (08:40)
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
--- NOTE | 2016-09-19 17:18 | HHI.PR ---
Addendum to Inpatient Note Addendum Reason: Additional Documentation Additional Information Discussed at length with the patient's brother, Jose. He states that he is very involved in his sister's care and well-being. He has been noticing progressive memory problems with the patient. He states he lives 1 mile away and checks on his sister every day. He states that the patient no longer drives because he has taken control of her car, and he takes her where she needs to go. He states that he has been involved with other family members and placement in the past. He does not believe that the patient will do well if she is placed, and states that because the patient does not wish to go to a facility he relied on her her wishes and try to keep her at home. He feels that she has been doing well with her current home health care. He wishes to speak further with case management and the patient's PCP about further long- term plans. Joe Lyle Sep 19, 2016 17:17
[2016-09-20] VITALS (8 sets, daily range): BP systolic 90–113; BP diastolic 53–65; PULSE 68–97; RESP 14–18; TEMP 96.4–97.6; O2SAT 98–100
[2016-09-20] MEDS: oxyCODONE/ACETAMINOPHEN 5 MG/325 MG TAB PO PRN ×2 (01:41→08:25)
[2016-09-20] MEDS: HYDROmorphone HCL PF 1 MG/ML VIAL IV PUSH PRN ×5 (03:09→20:30)
[2016-09-20] MEDS: ENOXAPARIN SODIUM 40 MG/0.4 ML SYRINGE SQ SCH (05:21)
[2016-09-20 05:51] LABS: AUTOMATED NEUTROPHIL # 5.2 TH/MM3 (1.8-7.7); BASOPHIL # 0.1 TH/MM3 (0-0.2); BASOPHIL % 1.2 % (0.0-2.0); EOSINOPHIL # 0.4 TH/MM3 (0-0.4); EOSINOPHIL % 6.1 % (0.0-4.0); HEMATOCRIT 25.5 % (35.0-46.0); LYMPH % 6.4 % (9.0-44.0); LYMPHOCYTE # 0.4 TH/MM3 (1.0-4.8); MEAN CELL VOLUME 96.4 FL (80.0-100.0); MEAN CORPUSCULAR HEMOGLOBIN 32.7 PG (27.0-34.0); MEAN CORPUSCULAR HGB CONC 33.9 % (32.0-36.0); MONO % 4.8 % (0.0-8.0); NEUT % 81.5 % (16.0-70.0); PLATELET COUNT 360 TH/MM3 (150-450); RED BLOOD COUNT 2.64 MIL/MM3 (4.00-5.30); RED CELL DISTRIBUTION WIDTH 16.9 % (11.6-17.2); WHITE BLOOD COUNT 6.4 TH/MM3 (4.0-11.0)
[2016-09-20] MEDS ORDERED: VANCOMYCIN INJ 750 MG in SODIUM CHLOR 0.9% 250 ML INJ 250 ML IV ONE (06:00)
[2016-09-20 06:09] LABS: BICARBONATE 28.7 MEQ/L (21.0-32.0); POTASSIUM 4.2 MEQ/L (3.5-5.1)
[2016-09-20 06:25] LABS: HEMO FLAGS AUTO DIFF
--- NOTE | 2016-09-20 07:05 | HHI.FPPN ---
Subjective Remarks VERY WEAK LOOKS WORSE UNABLE TO SIT UP CONFUSED, DOES RECOGNIZE ME D/W RN Objective Vitals Vital Signs Date Time Temp Pulse Resp B/P Pulse Ox O2 Delivery O2 Flow Rate FiO2 09/20/16 06:16 17 09/20/16 04:00 96.4 83 17 113/63 99 09/20/16 02:41 17 09/20/16 00:00 97.6 97 17 104/65 98 09/19/16 22:00 97.7 84 17 100/55 99 09/19/16 21:55 83 09/19/16 19:47 98.5 74 16 98/59 100 09/19/16 15:07 97.9 64 17 86/54 99 09/19/16 11:37 98.7 87 14 90/59 96 09/19/16 08:08 98.0 81 16 94/63 99 I/O 09/19/16 09/19/16 09/19/16 09/20/16 09/20/16 09/20/16 07:00 15:00 23:00 07:00 15:00 23:00 Intake Total 240 ml 490 ml Output Total 650 ml Balance 240 ml -160 ml Intake Oral 240 ml 240 ml IV Total 250 ml Output Urine Total 650 ml # Voids 1 Result Diagram: 09/20/16 0530 09/20/16 0530 Objective Remarks GENERAL: SKIN: Warm and dry. large ulcers BLE's, legs wrapped HEAD: Atraumatic. Normocephalic. EYES: Pupils equal and round. No scleral icterus. No injection or drainage. ENT: No nasal bleeding or discharge. Mucous membranes pink and moist. NECK: Trachea midline. No JVD. CARDIOVASCULAR: Regular rate and rhythm. RESPIRATORY: No accessory muscle use. Clear to auscultation. Breath sounds equal bilaterally. GASTROINTESTINAL: Abdomen soft, non-tender, nondistended. Hepatic and splenic margins not palpable. MUSCULOSKELETAL: Extremities without clubbing, cyanosis, or edema. No obvious deformities. NEUROLOGICAL: Awake and alert. No obvious cranial nerve deficits. Motor grossly within normal limits. 1 out of 5 muscle strength in the arms and legs. Normal speech. PSYCHIATRIC: Appropriate mood and affect; insight and judgment normal. Medications and IVs Current Medications Medications (Trade) Dose Ordered Sig/Jayne Route Start Time Stop Time Status Last Admin (NS Flush) 2 ml UNSCH PRN IV FLUSH 09/16/16 22:00 (NS Flush) 2 ml BID IV FLUSH 09/17/16 09:00 09/19/16 20:13 (Narcan Inj) 0.4 mg UNSCH PRN IV 09/16/16 22:00 (Cardizem Cd) 120 mg DAILY PO 09/17/16 09:00 09/19/16 08:39 (Cymbalta Dr) 20 mg DAILY PO 09/17/16 09:00 09/19/16 08:40 (Pepcid) 10 mg BID PO 09/17/16 09:00 09/19/16 20:12 (Lasix) 40 mg BID PO 09/17/16 09:00 09/19/16 20:12 (Imdur) 30 mg DAILY PO 09/17/16 09:00 Hold 09/19/16 08:39 (Aldactone) 50 mg BIDPC PO 09/17/16 09:00 09/19/16 18:11 (Lovenox Inj) 40 mg Q24H SQ 09/17/16 06:00 09/20/16 05:21 (Dilaudid Pf Inj) 0.5 mg Q3H PRN IV PUSH 09/17/16 19:00 09/20/16 05:46 (Zofran Inj) 4 mg Q6H PRN IVP 09/17/16 16:30 (Dina-Colace) 1 tab BID PO 09/17/16 21:00 09/19/16 20:12 (Milk Of Magnesia Liq) 30 ml Q12H PRN PO 09/17/16 16:30 (Senokot) 17.2 mg Q12H PRN PO 09/17/16 16:30 (Dulcolax Supp) 10 mg DAILY PRN RECTAL 09/17/16 16:30 (Lactulose Liq) 30 ml DAILY PRN PO 09/17/16 16:30 Oxycodone/ Acetaminophen 1 tab 1 tab Q6H PRN PO 09/18/16 08:30 09/20/16 01:41 (Vancomycin Consult Pharmacy) 0 ml @ 0 mls/hr UNSCH OTHER 09/18/16 15:30 (Tylenol) 650 mg Q6HR PRN PO 09/18/16 21:30 09/19/16 00:25 (Namenda) 5 mg DAILY PO 09/20/16 09:00 A/P Assessment and Plan Acute on chronic lower back pain- conservative management at this time with PT and pain control. Lumbar spine MRI with osteopenia, old fixation from L4 to S2, nonacute anterior wedging of L1, no definite signs of osteomyelitis. -Percocet and morphine -Pain control with Percocet and IV Dilaudid as needed with a bowel regimen -PT consulted, recommends [facility] Lower lumbar and right ankle wounds, chronic. - Wound culture with MRSA. vancomycin IV. Awaiting sensitivities - airport screener consulted Abnormal UA: UA with evidence of possible infection. Received Ceftriaxone IV in ER. Patient without leukocytosis or fever. - Urine culture with mixed sean, no indication for further antibiotics -CP, chronic angina Chronic Troponin I elevation. - Troponin I 0.06 - chronic and stable Suspected underlying dementia: Appears mild. - Speech therapy for cognitive evaluation Atrial fibrillation: Chronic. not on antiplatelet/anticoagulation therapy due to history of bleeding. - Continue diltiazem for rate control. CHF, depression, GERD: Stable at this time and will continue home medications as indicated. Case management consultation to assist with discharge planning DVT prophylaxis - Lovenox 40 mg subq q24h Discharge Planning Pending improvement. Wound cx with MRSA pending sensitivities. Cognitive eval pending. manager digital consulted for discharge planning. Alejandro Ellis MD Sep 20, 2016 07:05
[2016-09-20 07:43] LABS: SCAN/DIFF AUTO DIFF CONFIRMED
[2016-09-20] MEDS: MEMANTINE HCL 5 MG TAB PO SCH (08:25)
[2016-09-20] MEDS: DOCUSATE SODIUM 50 MG/SENNA 8.6 MG TAB PO SCH ×2 (08:25→20:25)
[2016-09-20] MEDS: SPIRONOLACTONE 50 MG TAB PO SCH ×2 (08:25→18:46)
[2016-09-20] MEDS: FUROSEMIDE 40 MG TAB PO SCH ×2 (08:25→20:25)
[2016-09-20] MEDS: SODIUM CHLORIDE 0.9% FLUSH 10 ML FLUSH IV FLUSH SCH ×2 (08:26→20:26)
[2016-09-20] MEDS: DULoxetine HCl DR 20 MG CAP PO SCH (08:26)
[2016-09-20] MEDS: DILTIAZEM-CD 120 MG CAP ER PO SCH (08:26)
[2016-09-20] MEDS: FAMOTIDINE 20 MG TAB PO SCH ×2 (08:26→20:25)
[2016-09-20] MEDS: MORPHINE SULFATE 30 MG CONTROLLED RELEASE TAB PO SCH ×2 (09:42→20:25)
[2016-09-20] MEDS: MORPHINE SULFATE 30 MG TAB PO PRN ×3 (15:09→23:27)
--- NOTE | 2016-09-20 19:53 | PD.WCN.NOT ---
Wound Consult Description: Patient seen on for evaluation of wounds to RLE and Sacral area. Patient turned to R side for wound assessment. Peeled back adhesive foam dressings in place to reveal 3 wounds to medial lower back just above the sacrum that appear unstageable with 100% coverage of yellow adherent slough noted to the middle and distal wounds. Proximal wound noted with ~50% coverage yellow slough and ~50% pale pink tissue. Minimal serous drainage noted on adhesive foam dressing without odor. No active drainage noted from wounds. Reapplied foam dressing back in place over wounds. All wounds measure ~1 x ~1 x slough. Periwound is noted with blanchable erythema. Medial middle back noted with a partial thickness wound with 100% pink tissue and minimal yellow/ serous exudate. Wound is a stage 2 with regular wound margins. Wound measures ~2 x ~2 x ~<0.1. Reapplied adhesive foam dressing back in place over wound.Periwound is unremarkable Removed gauze dressing and gauze pads in place to RLE extremity to reveal 3 RLE ulcers. Wound to R lateral lower leg presents with 100% clean red non granulation tissue. Wound measures 2 x 2 x ~0.1.Minimal yellow exudate noted on wound without odor.Old gauze pad dressing noted with minimal sero-sanguinous drainage. Cleansed wound with gauze pad and saline. Applied oil emulsion gauze ( adaptic) in single layer just over wound bed. Covered with dry 4x4 gauze. Secured dressing with rolled gauze and tape.Periwound noted with dry scaly skin. Wound to R medial lower leg presents with jagged wound margins and scaly dry periwound.Wound bed is noted with 100% clean red non granulation tissue. Wound measures 6 x 1 x ~0.1.Minimal yellow exudate noted on wound without odor.Old gauze pad dressing noted with minimal sero-sanguinous drainage. Cleansed wound with gauze pad and saline. Applied oil emulsion gauze (adaptic) in single layer just over wound bed. Covered with dry 4x4 gauze. Secured dressing with rolled gauze and tape. Wound to R posterior lower leg presents with 100% clean red non granulation tissue. Wound measures 2 x 1 ~0.1 .Minimal yellow exudate noted on wound without odor.Periwound is noted with dry scaly skin. Wound margins are jagged and irregular. Old gauze pad dressing noted with minimal sero-sanguinous drainage. Cleansed wound with gauze pad and saline. Applied oil emulsion gauze ( adaptic) in single layer just over wound bed. Covered with dry 4x4 gauze. Secured dressing with rolled gauze and tape. Communicated with: GOLDY hart and she will notify Doctor Caleb for orders Recommendation: Please cleanse wounds to lower back just above sacrum with normal saline only and apply alla thick coverage of santyl ointment and cover with adhesive foam dressing please change daily. Cleanse wound to middle medial back with normal saline and apply adhesive foam dressing. Please change every 3 days or PRN if saturated or dislodged. Cleanse wounds to RLE with normal saline and apply single layer oil emulsion gauze (adaptic) just over wound beds and secure with dry 4x4 gauze pads, rolled gauze and tape. please change every 2 days or PRN if saturated or dislodged. Patient will need a pressure relieving support surface bed and nutrition consult that magnetic tape typewriter operator will order per protocol. Karina Tomlin CRN Sep 20, 2016 19:53
[2016-09-21] VITALS: BP 121/65; PULSE 70; RESP 18; TEMP 97.7; O2SAT 99
[2016-09-21] MEDS: HYDROmorphone HCL PF 1 MG/ML VIAL IV PUSH PRN ×4 (00:23→22:39)
[2016-09-21] MEDS: MORPHINE SULFATE 30 MG TAB PO PRN ×4 (03:02→17:50)
[2016-09-21 04:00] VITALS: BP 96/57; PULSE 79; RESP 18; TEMP 98; O2SAT 99
[2016-09-21] MEDS: ENOXAPARIN SODIUM 40 MG/0.4 ML SYRINGE SQ SCH (05:56)
[2016-09-21 06:26] LABS: AUTOMATED NEUTROPHIL # 5.8 TH/MM3 (1.8-7.7); BASOPHIL # 0.1 TH/MM3 (0-0.2); EOSINOPHIL # 0.4 TH/MM3 (0-0.4); EOSINOPHIL % 4.9 % (0.0-4.0); HEMATOCRIT 26.1 % (35.0-46.0); LYMPH % 6.8 % (9.0-44.0); LYMPHOCYTE # 0.5 TH/MM3 (1.0-4.8); MEAN CELL VOLUME 97.4 FL (80.0-100.0); MEAN CORPUSCULAR HEMOGLOBIN 31.9 PG (27.0-34.0); MEAN CORPUSCULAR HGB CONC 32.7 % (32.0-36.0); MONO % 8.3 % (0.0-8.0); PLATELET COUNT 364 TH/MM3 (150-450); RED BLOOD COUNT 2.68 MIL/MM3 (4.00-5.30); RED CELL DISTRIBUTION WIDTH 16.5 % (11.6-17.2); WHITE BLOOD COUNT 7.3 TH/MM3 (4.0-11.0)
[2016-09-21 06:31] LABS: HEMO FLAGS AUTO DIFF
[2016-09-21 06:55] LABS: BICARBONATE 27.4 MEQ/L (21.0-32.0); POTASSIUM 3.9 MEQ/L (3.5-5.1)
[2016-09-21 08:00] VITALS: BP 130/58; PULSE 72; RESP 14; TEMP 97.3; O2SAT 93
[2016-09-21 08:38] LABS: SCAN/DIFF AUTO DIFF CONFIRMED
[2016-09-21] MEDS: FAMOTIDINE 20 MG TAB PO SCH ×2 (08:39→21:09)
[2016-09-21] MEDS: MORPHINE SULFATE 30 MG CONTROLLED RELEASE TAB PO SCH ×2 (08:39→21:09)
[2016-09-21] MEDS: MEMANTINE HCL 5 MG TAB PO SCH (08:39)
[2016-09-21] MEDS: DOCUSATE SODIUM 50 MG/SENNA 8.6 MG TAB PO SCH ×2 (08:40→21:09)
[2016-09-21] MEDS: DULoxetine HCl DR 20 MG CAP PO SCH (08:40)
[2016-09-21] MEDS: DILTIAZEM-CD 120 MG CAP ER PO SCH (08:40)
[2016-09-21] MEDS: SPIRONOLACTONE 50 MG TAB PO SCH ×2 (08:41→17:50)
[2016-09-21] MEDS: SODIUM CHLORIDE 0.9% FLUSH 10 ML FLUSH IV FLUSH SCH ×2 (08:41→21:08)
[2016-09-21] MEDS: FUROSEMIDE 40 MG TAB PO SCH ×2 (08:42→21:00)
--- NOTE | 2016-09-21 09:35 | HHI.FPPN ---
Subjective Remarks MORE ALERT TAKING SOME PO D/W RN Objective Vitals Vital Signs Date Time Temp Pulse Resp B/P Pulse Ox O2 Delivery O2 Flow Rate FiO2 09/21/16 08:00 97.3 72 14 130/58 93 09/21/16 05:15 17 09/21/16 04:02 18 09/21/16 04:00 98.0 79 18 96/57 99 09/21/16 00:00 97.7 70 18 121/65 99 09/20/16 21:25 17 09/20/16 20:01 77 09/20/16 20:00 97.1 74 18 94/58 100 09/20/16 16:00 97.1 70 18 101/56 98 09/20/16 12:00 96.7 68 14 90/53 99 99/57 I/O 09/20/16 09/20/16 09/20/16 09/21/16 09/21/16 09/21/16 07:00 15:00 23:00 07:00 15:00 23:00 Intake Total 490 ml 600 ml 240 ml 120 ml Output Total 650 ml 200 ml 125 ml 150 ml Balance -160 ml 400 ml 115 ml -30 ml Intake Oral 240 ml 600 ml 240 ml 120 ml IV Total 250 ml Output Urine Total 650 ml 200 ml 125 ml 150 ml # Voids 1 # Bowel Movements 0 0 0 Result Diagram: 09/21/1660509/21/16605 Objective Remarks GENERAL: SKIN: Warm and dry. large ulcers BLE's, legs wrapped HEAD: Atraumatic. Normocephalic. EYES: Pupils equal and round. No scleral icterus. No injection or drainage. ENT: No nasal bleeding or discharge. Mucous membranes pink and moist. NECK: Trachea midline. No JVD. CARDIOVASCULAR: Regular rate and rhythm. RESPIRATORY: No accessory muscle use. Clear to auscultation. Breath sounds equal bilaterally. GASTROINTESTINAL: Abdomen soft, non-tender, nondistended. Hepatic and splenic margins not palpable. MUSCULOSKELETAL: Extremities without clubbing, cyanosis, or edema. No obvious deformities. NEUROLOGICAL: Awake and alert. No obvious cranial nerve deficits. Motor grossly within normal limits. 1 out of 5 muscle strength in the arms and legs. Normal speech. PSYCHIATRIC: Appropriate mood and affect; insight and judgment normal. Medications and IVs Current Medications Medications (Trade) Dose Ordered Sig/Jayne Route Start Time Stop Time Status Last Admin (NS Flush) 2 ml UNSCH PRN IV FLUSH 09/16/16 22:00 (NS Flush) 2 ml BID IV FLUSH 09/17/16 09:00 09/21/16 08:41 (Narcan Inj) 0.4 mg UNSCH PRN IV 09/16/16 22:00 (Cardizem Cd) 120 mg DAILY PO 09/17/16 09:00 09/21/16 08:40 (Cymbalta Dr) 20 mg DAILY PO 09/17/16 09:00 09/21/16 08:40 (Pepcid) 10 mg BID PO 09/17/16 09:00 09/21/16 08:39 (Lasix) 40 mg BID PO 09/17/16 09:00 09/20/16 20:25 (Imdur) 30 mg DAILY PO 09/17/16 09:00 Hold 09/19/16 08:39 (Aldactone) 50 mg BIDPC PO 09/17/16 09:00 09/20/16 18:46 (Lovenox Inj) 40 mg Q24H SQ 09/17/16 06:00 09/21/16 05:56 (Dilaudid Pf Inj) 0.5 mg Q3H PRN IV PUSH 09/17/16 19:00 09/21/16 04:45 (Zofran Inj) 4 mg Q6H PRN IVP 09/17/16 16:30 (Dina-Colace) 1 tab BID PO 09/17/16 21:00 09/21/16 08:40 (Milk Of Magnesia Liq) 30 ml Q12H PRN PO 09/17/16 16:30 (Senokot) 17.2 mg Q12H PRN PO 09/17/16 16:30 (Dulcolax Supp) 10 mg DAILY PRN RECTAL 09/17/16 16:30 Lactulose 30 ml 30 ml DAILY PRN PO 09/17/16 16:30 (Vancomycin Consult Pharmacy) 0 ml @ 0 mls/hr UNSCH OTHER 09/18/16 15:30 (Tylenol) 650 mg Q6HR PRN PO 09/18/16 21:30 09/19/16 00:25 (Namenda) 5 mg DAILY PO 09/20/16 09:00 09/21/16 08:39 (Oramorph Sr) 30 mg Q12HR PO 09/20/16 09:00 09/21/16 08:39 (Msir) 30 mg Q4H PRN PO 09/20/16 08:30 09/21/16 07:08 (Santyl Oint) 1 applic DAILY TOPICAL 09/21/16 10:00 A/P Assessment and Plan Acute on chronic lower back pain- conservative management at this time with PT and pain control. Lumbar spine MRI with osteopenia, old fixation from L4 to S2, nonacute anterior wedging of L1, no definite signs of osteomyelitis. -Percocet and morphine -Pain control with Percocet and IV Dilaudid as needed with a bowel regimen -PT consulted, recommends [facility] TO EVALUATE PT Lower lumbar and right ankle wounds, chronic. - Wound culture with MRSA. vancomycin IV. Awaiting sensitivities - statistical clerk advertising consulted Abnormal UA: UA with evidence of possible infection. Received Ceftriaxone IV in ER. Patient without leukocytosis or fever. - Urine culture with mixed sean, no indication for further antibiotics -CP, chronic angina Chronic Troponin I elevation. - Troponin I 0.06 Suspected underlying dementia: Appears mild. - Speech therapy for cognitive evaluation Atrial fibrillation: Chronic. not on antiplatelet/anticoagulation therapy due to history of bleeding. - Continue diltiazem for rate control. CHF depression, GERD: Stable at this time and will continue home medications as indicated. Case management consultation to assist with discharge planning DVT prophylaxis - Lovenox 40 mg subq q24h Discharge Planning Pending improvement. Wound cx with MRSA. Cognitive eval pending. public relations manager consulted for discharge planning. Alejandro Ellis MD Sep 21, 2016 09:35
[2016-09-21 12:00] VITALS: BP_SYST 92; BP_SYST 99; BP_DIAS 58; BP_DIAS 59; PULSE 67; RESP 14; TEMP 97.4; O2SAT 98
[2016-09-21] MEDS ORDERED: VANCOMYCIN INJ 750 MG in SODIUM CHLOR 0.9% 250 ML INJ 250 ML IV ONE (12:00)
[2016-09-21] MEDS: COLLAGENASE OINT 30 GM TUBE TOPICAL SCH (12:43)
[2016-09-21 16:00] VITALS: BP 94/61; PULSE 74; RESP 16; TEMP 97.5; O2SAT 98
[2016-09-21 20:00] VITALS: BP 146/67; PULSE 79; RESP 16; TEMP 97.1; O2SAT 96
[2016-09-22] VITALS: BP 102/58; PULSE 78; RESP 16; TEMP 97.7; O2SAT 96
[2016-09-22] MEDS: HYDROmorphone HCL PF 1 MG/ML VIAL IV PUSH PRN ×2 (03:36→10:56)
[2016-09-22 04:00] VITALS: BP 104/65; PULSE 80; RESP 16; TEMP 97.4; O2SAT 97
[2016-09-22] MEDS: ENOXAPARIN SODIUM 40 MG/0.4 ML SYRINGE SQ SCH (05:13)
[2016-09-22 07:51] LABS: AUTOMATED NEUTROPHIL # 8.5 TH/MM3 (1.8-7.7); BASOPHIL # 0.1 TH/MM3 (0-0.2); BASOPHIL % 0.7 % (0.0-2.0); EOSINOPHIL # 0.3 TH/MM3 (0-0.4); EOSINOPHIL % 2.9 % (0.0-4.0); HEMATOCRIT 24.9 % (35.0-46.0); HEMO FLAGS DIFF FINAL; LYMPH % 5.1 % (9.0-44.0); LYMPHOCYTE # 0.5 TH/MM3 (1.0-4.8); MEAN CELL VOLUME 97.1 FL (80.0-100.0); MEAN CORPUSCULAR HEMOGLOBIN 33.3 PG (27.0-34.0); MEAN CORPUSCULAR HGB CONC 34.3 % (32.0-36.0); MONO % 7.2 % (0.0-8.0); NEUT % 84.1 % (16.0-70.0); PLATELET COUNT 360 TH/MM3 (150-450); RED BLOOD COUNT 2.57 MIL/MM3 (4.00-5.30); RED CELL DISTRIBUTION WIDTH 16.3 % (11.6-17.2); WHITE BLOOD COUNT 10.1 TH/MM3 (4.0-11.0)
[2016-09-22 08:00] VITALS: BP 101/62; PULSE 83; RESP 20; TEMP 97.8; O2SAT 95
[2016-09-22 08:09] LABS: BICARBONATE 27.6 MEQ/L (21.0-32.0); POTASSIUM 4.1 MEQ/L (3.5-5.1)
[2016-09-22] MEDS: FUROSEMIDE 40 MG TAB PO SCH (09:00)
[2016-09-22] MEDS: SPIRONOLACTONE 50 MG TAB PO SCH (09:00)
[2016-09-22] MEDS: SODIUM CHLORIDE 0.9% FLUSH 10 ML FLUSH IV FLUSH SCH (09:13)
[2016-09-22] MEDS: DOCUSATE SODIUM 50 MG/SENNA 8.6 MG TAB PO SCH (09:13)
[2016-09-22] MEDS: MORPHINE SULFATE 30 MG CONTROLLED RELEASE TAB PO SCH (09:13)
[2016-09-22] MEDS: MEMANTINE HCL 5 MG TAB PO SCH (09:14)
[2016-09-22] MEDS: DULoxetine HCl DR 20 MG CAP PO SCH (09:14)
[2016-09-22] MEDS: FAMOTIDINE 20 MG TAB PO SCH (09:14)
[2016-09-22] MEDS: MORPHINE SULFATE 30 MG TAB PO PRN ×2 (09:14→14:34)
[2016-09-22] MEDS: DILTIAZEM-CD 120 MG CAP ER PO SCH (09:14)
[2016-09-22] MEDS: COLLAGENASE OINT 30 GM TUBE TOPICAL SCH (09:15)
[2016-09-22] MEDS ORDERED: MORP1TAB25 PO (10:17)
[2016-09-22] MEDS ORDERED: MSIR30 PO (10:17)
--- NOTE | 2016-09-22 10:18 | HHI.DCPOC ---
Discharge Care Plan Diagnosis: (1) Elevated troponin (2) Renal insufficiency (3) NSTEMI (non-ST elevated myocardial infarction) (4) Afib (5) Hypokalemia (6) Hyponatremia (7) Cystitis (8) Back pain Goals to Promote Your Health * To prevent worsening of your condition and complications * To maintain your health at the optimal level Directions to Meet Your Goals Take your medications as prescribed Follow your dietary instruction Follow activity as directed Keep your appointments as scheduled Take your immunizations and boosters as scheduled If your symptoms worsen call your PCP, if no PCP go to Urgent Care Center or Emergency Room Smoking is Dangerous to Your Health. Avoid second hand smoke Call the 24-hour hour crisis hotline for domestic abuse at Alejandro Ellis MD Sep 22, 2016 10:18
--- NOTE | 2016-09-22 10:20 | HHI.DS ---
Discharge Summary Admission Date Sep 19, 2016 at 14:53 Discharge Date: Sep 22, 2016 Admitting Diagnosis Intractable Pain; Cystitis (1) Back pain (2) Renal insufficiency (3) Cystitis (4) Elevated troponin (5) NSTEMI (non-ST elevated myocardial infarction) (6) Afib CBC/BMP: 09/22/16 0715 09/22/16 0715 Significant Findings Laboratory Tests Test 09/20/16 09/21/16 09/22/16 05:30 06:06 07:15 Red Blood Count 2.64 MIL/MM3 2.68 MIL/MM3 2.57 MIL/MM3 (4.00-5.30) (4.00-5.30) (4.00-5.30) Hemoglobin 8.6 GM/DL 8.5 GM/DL 8.6 GM/DL (11.6-15.3) (11.6-15.3) (11.6-15.3) Hematocrit 25.5 % 26.1 % 24.9 % (35.0-46.0) (35.0-46.0) (35.0-46.0) Neutrophils (%) (Auto) 81.5 % 79.0 % 84.1 % (16.0-70.0) (16.0-70.0) (16.0-70.0) Lymphocytes (%) (Auto) 6.4 % 6.8 % 5.1 % (9.0-44.0) (9.0-44.0) (9.0-44.0) Eosinophils (%) (Auto) 6.1 % (0.0-4.0) 4.9 % (0.0-4.0) Lymphocytes # (Auto) 0.4 TH/MM3 0.5 TH/MM3 0.5 TH/MM3 (1.0-4.8) (1.0-4.8) (1.0-4.8) Sodium Level 134 MEQ/L 135 MEQ/L (136-145) (136-145) Chloride Level 97 MEQ/L (98-107) Blood Urea Nitrogen 48 MG/DL (7-18) 45 MG/DL (7-18) 42 MG/DL (7-18) Creatinine 1.34 MG/DL 1.59 MG/DL 1.16 MG/DL (0.50-1.00) (0.50-1.00) (0.50-1.00) Estimat Glomerular Filtration 39 ML/MIN (>89) 32 ML/MIN (>89) 46 ML/MIN (>89) Rate Monocytes (%) (Auto) 8.3 % (0.0-8.0) Random Glucose 108 MG/DL (74-106) Neutrophils # (Auto) 8.5 TH/MM3 (1.8-7.7) PE at Discharge GENERAL: SKIN: Warm and dry. HEAD: Atraumatic. Normocephalic. EYES: Pupils equal and round. No scleral icterus. No injection or drainage. ENT: No nasal bleeding or discharge. Mucous membranes pink and moist. NECK: Trachea midline. No JVD. CARDIOVASCULAR: Regular rate and rhythm. RESPIRATORY: No accessory muscle use. Clear to auscultation. Breath sounds equal bilaterally. GASTROINTESTINAL: Abdomen soft, non-tender, nondistended. Hepatic and splenic margins not palpable. MUSCULOSKELETAL: Extremities without clubbing, cyanosis, or edema. No obvious deformities. NEUROLOGICAL: Awake and alert. No obvious cranial nerve deficits. Motor grossly within normal limits. Five out of 5 muscle strength in the arms and legs. Normal speech. PSYCHIATRIC: Appropriate mood and affect; insight and judgment normal. Hospital Course 75 y cf, admit with - Acute on chronic lower back pain- conservative management at this time with PT and pain control. Lumbar spine MRI with osteopenia, old fixation from L4 to S2, nonacute anterior wedging of L1, no definite signs of osteomyelitis. -Percocet and morphine -Pain control with Percocet and IV Dilaudid as needed with a bowel regimen -PT consulted, recommends [facility] denied pt Lower lumbar and right ankle wounds, chronic. - Wound culture with MRSA. vancomycin IV. - school year nanny consulted Abnormal UA: UA with evidence of possible infection. Received Ceftriaxone IV in ER. Patient without leukocytosis or fever. - Urine culture with mixed sean, no indication for further antibiotics -CP, chronic angina Chronic Troponin I elevation. - Troponin I 0.06 Suspected underlying dementia: Appears mild. - Speech therapy for cognitive evaluation Atrial fibrillation: Chronic. not on antiplatelet/anticoagulation therapy due to history of bleeding. - Continue diltiazem for rate control. CHF depression, GERD: Stable at this time and will continue home medications as indicated. Case management consultation to assist with discharge planning DVT prophylaxis - Lovenox 40 mg subq q24h Discharge Discharge Disposition: Discharge to SNF Discharge Instructions DIET: Follow Instructions for: Heart Healthy Diet Activities you can perform: Regular-No Restrictions Follow up Referrals: PCP Follow-up - 2-3 Days New Medications: Gentamicin Topical (Gentamicin Topical) 0.1% Cream 1 APPLIC TOPICAL BID Apply to affected area(s) Infection Days 30 Ref 6 GM Sulfamethoxazole-Trimethoprim (Bactrim DS) 800-160 Mg Tab 1 TAB PO BID Infection #20 Ref 0 TAB Continued Medications: Diltiazem ER 24 HR (Dilt-Xr) 120 Mg Capdr 120 MG PO DAILY #30 Ref [address] (Dul[address]etine DR) 20 Mg Capdr 20 MG PO DAILY #30 Ref 0 CAP Famotidine (Famotidine) 20 Mg Tab 20 MG PO BID #60 Ref 0 TAB Furosemide (Furosemide) 40 Mg Tab 40 MG PO BID #60 Ref 0 TAB Isosorbide Mononitrate ER (Isosorbide Mononitrate ER) 30 Mg Louie 30 MG PO DAILY Prevent Chest Pain #30 Ref 0 TAB Morphine ER (Morphine ER) 30 Mg Tab 30 MG PO Q12HR Pain Management #60 Ref 0 TAB NS (This prescription has been renewed) Morphine IR (Morphine IR) 30 Mg Tab 30 MG PO Q4H PRN PAIN #180 Ref 0 TAB NS (This prescription has been renewed) Spironolactone (Spironolactone) 50 Mg Tab 50 MG PO BIDPC #60 Ref 0 TAB Discontinued Medications: Morphine IR (Morphine IR) 15 Mg Tab 15 MG PO TID PRN PAIN Ref 0 TAB Nitrofurantoin Monohydrate Macrocrystals (Macrobid) 100 Mg Cap 100 MG PO BID Infection Days 5 Ref 0 CAP Oxycodone-Acetaminophen (Percocet) 5-325 mg Tab 1-2 TAB PO Q6H PRN PAIN SCALE 6 TO 10 #20 Ref 0 TAB Alejandro Ellis MD Sep 22, 2016 10:20
[2016-09-22] MEDS ORDERED: GENT0.1C TOPICAL (10:23)
[2016-09-22] MEDS ORDERED: BACT800T5 PO (10:23)
[2016-09-22 12:00] VITALS: BP 99/57; PULSE 84; RESP 19; TEMP 98.2; O2SAT 96
== END 2016-09-22 16:54 | DRG 543 ==
LOC: NEPC 15:53 → NEDA 21:56 → NEPHCDU 23:20 → OBSVTOIN 09-19 14:53 → N07B 09-19 21:04
PROVIDERS: ADMIT Family Medicine; ATTEND Family Medicine
DX: M48.56XA Collapsed vertebra, not elsewhere classified, lumbar region, initial encounter for fracture (principal); L97.319 Non-pressure chronic ulcer of right ankle with unspecified severity; L89.309 Pressure ulcer of unspecified buttock, unspecified stage; I11.0 Hypertensive heart disease with heart failure; F03.90 Unspecified dementia, unspecified severity, without behavioral disturbance, psychotic disturbance, mood disturbance, and anxiety; I50.9 Heart failure, unspecified; E87.1 Hypo-osmolality and hyponatremia; E11.9 Type 2 diabetes mellitus without complications; B95.62 Methicillin resistant Staphylococcus aureus infection as the cause of diseases classified elsewhere; N28.9 Disorder of kidney and ureter, unspecified; N30.90 Cystitis, unspecified without hematuria; M54.5 Low back pain; G89.29 Other chronic pain; I48.2 Chronic atrial fibrillation; E86.0 Dehydration; K21.9 Gastro-esophageal reflux disease without esophagitis; M81.0 Age-related osteoporosis without current pathological fracture; I20.9 Angina pectoris, unspecified; I25.2 Old myocardial infarction; J45.909 Unspecified asthma, uncomplicated; M85.88 Other specified disorders of bone density and structure, other site; F32.9 Major depressive disorder, single episode, unspecified; Z85.79 Personal history of other malignant neoplasms of lymphoid, hematopoietic and related tissues; Z88.0 Allergy status to penicillin; Z98.1 Arthrodesis status
CPT/HCPCS: 71010; 72158; 80048; 80053; 80202; 81001; 84484; 85007; 85025; 85027; 86403; 87070; 87086; 87147; 87186; 87205; 93005; 96374; 96375; A9579; G0378; G8987-GP; G8988-GP; G9168-GN; G9169-GN; G9170-GN; J0696; J1170; J1642; J1650; J2270; J3370; J7040; J7050

== ENCOUNTER 2016-09-29 15:14 | Inpatient (IN) | payer MEDICARE ==
[~2016-09-29] VITALS: Ht 149.9 cm; Wt 48.7 kg
[2016-09-29] VITALS (10 sets, daily range): BP systolic 90–118; BP diastolic 52–62; PULSE 74–99; RESP 12–23; TEMP 98.4; O2SAT 96–100
[~2016-09-29 15:14] MED LIST changes: +BACT800T5 PO; +GENT0.1C TOPICAL; -MORP1TAB24 PO; +MORP1TAB25 PO
--- NOTE | 2016-09-29 15:44 | PD ---
HPI Chief Complaint: Chest Pain Time Seen by Provider: 15:44 Travel History International Travel<30 days: No Contact w/Intl Traveler<30days: No Traveled to known affect area: No History of Present Illness HPI 75-year-old female with a history of AF, CHF, HTN, anemia is brought to the emergency department by EMS from her [facility] for evaluation of chest pain that began about 1.5 hours ago. Patient states that the pain began on her left anterior chest and is now located on her right anterior chest radiating to her right arm and her jaw. Describes it as a dull pain. States that she does have some associated shortness of breath. Denies any lightheadedness, dizziness, abdominal pain, diarrhea, swelling of the extremities. She states that she's had nausea and vomiting in the mornings for the past 3 days. States she's not had any vomiting since earlier this morning. Denies fever or chills, cough or cold symptoms. PCP is Dr. Ellis. Betting Agency Counter Clerk is Dr. Flores. 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) Heart Rhythm Problems: Yes (AFIB) Cancer: No Cardiovascular Problems: Yes High Cholesterol: No Chest Pain: No Congestive Heart Failure: Yes Endocrine: No Gastrointestinal Disorders: Yes Genitourinary: No Hypertension: Yes Immune Disorder: No Musculoskeletal: Yes Neurologic: No Psychiatric: No Reproductive: No Respiratory: No Past Surgical History Abdominal Surgery: Yes AICD: No Appendectomy: Yes Arteriovenous Shunt: No Body Medical Devices: MEDAPORT Cardiac Surgery: No Ear Surgery: No Endocrine Surgery: No Eye Surgery: No Genitourinary Surgery: No Gynecologic Surgery: Yes (TOTAL HYSTERECTOMY) Hysterectomy: Yes Insulin Pump: No Joint Replacement: No Oral Surgery: No Pacemaker: No Thoracic Surgery: No Tonsillectomy: Yes Other Surgery: Yes Social History Alcohol Use: No Tobacco Use: No Substance Use: No Allergies-Medications (Allergen,Severity, Reaction): Coded Allergies: Compazine (Verified Allergy, Unknown, 09/29/16) Penicillin (Verified Allergy, Unknown, 09/29/16) *MDRO Multi-Drug Resistant Organism (Verified Adverse Reaction, Unknown, ) MRSA (BACK WOUND)-09/17/2016 Reported Meds & Prescriptions Reported Meds & Active Scripts Active Gentamicin Topical 0.1% Cream 1 Applic TOPICAL BID 30 Days Apply to affected area(s) Bactrim DS (Sulfamethoxazole-Trimethoprim) 800-160 Mg Tab 1 Tab PO BID Morphine ER (Morphine Sulfate) 30 Mg Tab 30 Mg PO Q12HR Morphine IR (Morphine Sulfate) 30 Mg Tab 30 Mg PO Q4H PRN Reported Zofran (Ondansetron HCl) 4 Mg Tab 4 Mg PO Q6HR PRN Zinc Sulfate 220 Mg Tab 220 Mg PO DAILY C 500 (Ascorbic Acid) 500 Mg Tab 500 Mg PO BID Multi Vitamin and Mineral (Multiple Vitamins W/ Minerals) 1 Tab Tab 1 Tab PO DAILY Milk of Magnesia Liq (Magnesium Hydroxide) 400 Mg/5 Ml Susp 30 Ml PO HS PRN Enema Disposable (Sodium Phosphates) 1 Laverne Laverne 1 Applic RECTAL IN THE AM PRN Dulcolax Supp (Bisacodyl) 10 Mg Supp 10 Mg RECTAL IN THE AM PRN Citroma Liq (Magnesium Citrate) 300 Ml Liq 300 Ml PO IN THE AM PRN Tylenol (Acetaminophen) 325 Mg Tab 650 Mg PO Q4H PRN Famotidine 20 Mg Tab 20 Mg PO BID Spironolactone 50 Mg Tab 50 Mg PO BIDPC Isosorbide Mononitrate ER (Isosorbide Mononitrate) 30 Mg Louie 30 Mg PO DAILY Furosemide 40 Mg Tab 40 Mg PO BID Dilt-Xr (Diltiazem HCl) 120 Mg Capdr 120 Mg PO DAILY Review of Systems Except as stated in HPI: all other systems reviewed are Neg Physical Exam Narrative GENERAL: Thin frail elderly female patient in no acute distress. SKIN: Warm and dry. HEAD: Normocephalic and atraumatic. EYES: No injection, drainage, or hyphema noted. PERRLA. EOMI. ENT: No nasal drainage noted. Oropharynx is clear. NECK: Supple and the trachea is midline. CARDIOVASCULAR: Regular rate and rhythm. RESPIRATORY: Breath sounds are equal bilaterally with no accessory muscle use, wheezing, rhonchi, or crackles. GASTROINTESTINAL: Abdomen is soft, non-tender, and nondistended. MUSCULOSKELETAL: No obvious deformities, swelling, cyanosis, or ecchymosis is present throughout the upper and lower extremities. Patient has full range of motion without any signs of neurovascular compromise. NEUROLOGICAL: Awake, alert, and oriented. Normal speech and gait. Cranial nerves are grossly intact. Data Data Last Documented VS Vital Signs Date Time Temp Pulse Resp B/P Pulse Ox O2 Delivery O2 Flow Rate FiO2 09/29/16 18:06 89 17 90/52 99 Room Air 09/29/16 15:40 98.4 Orders Electrocardiogram (09/29/16 15:43) B-Type Natriuretic Peptide (09/29/16 15:43) Ckmb (Isoenzyme) Profile (09/29/16 15:43) Complete Blood Count With Diff (09/29/16 15:43) Comprehensive Metabolic Panel (09/29/16 15:43) Magnesium (Mg) (09/29/16 15:43) Prothrombin Time / Inr (Pt) (09/29/16 15:43) Act Partial Throm Time (Ptt) (09/29/16 15:43) Troponin I (09/29/16 15:43) Lipase (09/29/16 15:43) Chest, Single Ap (09/29/16 15:43) Ecg Monitoring (09/29/16 15:43) Bilateral Bp Monitoring (09/29/16 15:43) Iv Access Insert/Monitor (09/29/16 15:43) Oximetry (09/29/16 15:43) Aspirin Chew (Aspirin Chew) (09/29/16 15:45) Sodium Chloride 0.9% Flush (Ns Flush) (09/29/16 15:45) Basic Metabolic Panel (Bmp) (09/29/16 17:31) Calcium Gluconate Inj (Calcium Gluconate (09/29/16 18:00) Sodium Chlorid 0.9% 500 Ml Inj (Ns 500 M (09/29/16 18:30) Sodium Polysty Sulfate Liq (Kayexalate L (09/29/16 18:45) Urinary Catheter Management LAURENCE.Q8H (09/29/16 18:32) Dextrose 50% In Joanne (Vial) Inj (D50w (Vi (09/29/16 18:45) Insulin Human Regular Inj (Novolin R Inj (09/29/16 18:45) Albuterol Neb (Albuterol Neb) (09/29/16 18:45) Consult Nephrology (09/29/16 ) Ct Abd/Pel W/O Iv Contrast (09/29/16 18:41) (Hub Use Only)Inp Phy Cons/Ref (09/29/16 ) Acetaminophen (Tylenol) (09/29/16 19:00) Admit Order (Ed Use Only) (09/29/16 18:58) Labs Laboratory Tests Test 09/29/16 09/29/16 16:15 17:50 White Blood Count 5.4 TH/MM3 Red Blood Count 2.53 MIL/MM3 Hemoglobin 8.5 GM/DL Hematocrit 25.2 % Mean Corpuscular Volume 99.6 FL Mean Corpuscular Hemoglobin 33.6 PG Mean Corpuscular Hemoglobin 33.7 % Concent Red Cell Distribution Width 18.2 % Platelet Count 325 TH/MM3 Mean Platelet Volume 7.4 FL Neutrophils (%) (Auto) 73.6 % Lymphocytes (%) (Auto) 10.2 % Monocytes (%) (Auto) 14.6 % Eosinophils (%) (Auto) 0.9 % Basophils (%) (Auto) 0.7 % Neutrophils # (Auto) 4.0 TH/MM3 Lymphocytes # (Auto) 0.6 TH/MM3 Monocytes # (Auto) 0.8 TH/MM3 Eosinophils # (Auto) 0.0 TH/MM3 Basophils # (Auto) 0.0 TH/MM3 CBC Comment DIFF FINAL Differential Comment Prothrombin Time 10.6 SEC Prothromb Time International 1.0 RATIO Ratio Activated Partial 69.5 SEC Thromboplast Time Sodium Level 129 MEQ/L 129 MEQ/L Potassium Level 7.1 MEQ/L 7.2 MEQ/L Chloride Level 94 MEQ/L 95 MEQ/L Carbon Dioxide Level 28.3 MEQ/L 28.6 MEQ/L Anion Gap 7 MEQ/L 5 MEQ/L Blood Urea Nitrogen 64 MG/DL 62 MG/DL Creatinine 3.34 MG/DL 3.29 MG/DL Estimat Glomerular Filtration 13 ML/MIN 14 ML/MIN Rate Random Glucose 100 MG/DL 90 MG/DL Calcium Level 8.6 MG/DL 8.4 MG/DL Magnesium Level 2.8 MG/DL Total Bilirubin 0.5 MG/DL Aspartate Amino Transf 19 U/L (AST/SGOT) Alanine Aminotransferase 24 U/L (ALT/SGPT) Alkaline Phosphatase 109 U/L Total Creatine Kinase 32 U/L Troponin I LESS THAN 0.02 NG/ML B-Type Natriuretic Peptide 167 PG/ML Total Protein 8.4 GM/DL Albumin 3.2 GM/DL Lipase 209 U/L [facility] Medical Decision Making Medical Screen Exam Complete: Yes Emergency Medical Condition: Yes Differential Diagnosis Pleurisy versus chest wall pain versus ACS versus electrolyte abnormality versus pneumonia Narrative Course 75-year-old female presents to the emergency department for evaluation of chest pain and shortness of breath that began 1.5 hours ago. Patient is afebrile. She is slightly tachycardic with a heart rate of 99 bpm. Otherwise vital signs within normal limits. Physical examination is essentially unremarkable. EKG shows atrial fibrillation with a ventricular rate of 90 bpm, no acute ST elevations or depressions. IV access is obtained, labs 7 drawn and sent. Patient is placed on cardiac telemetry and pulse oximetry monitoring. Patient is administered oral aspirin. CBC shows anemia with hemoglobin of 8.5, hematocrit 25.2. This is the patient' s baseline. CMP shows acute kidney injury with a creatinine of 3.34, BUN 64, GFR 13. Hyperkalemia with a potassium of 7.1. Hyponatremia with a sodium of 129. Cardiac enzymes are negative. BNP is 167. A repeat BMP was performed to confirm lab value of hyperkalemia. Patient is administered 1 g of calcium gluconate, 1 amp of D50, 5 units of IV insulin, 15 g of Kayexalate, 1 albuterol nebulizer. I spoke with the ed tech tongue trimmer who agrees with current treatment plan and a consult has been placed. Patient will be admitted to ICU for acute kidney injury with hyperkalemia secondary to dehydration. I discussed the case with my attending physician Dr. Oleary who is aware of the patients history, physical examination findings, and treatment plan. Physician Communication Physician Communication I spoke with Dr. Manrique ed tech who agrees with current treatment plan and agrees to consult on the patient. I spoke with Dr. South solid waste collection worker who agrees to admit the patient to his service. Diagnosis Primary Impression: EMIR (acute kidney injury) Additional Impressions: Hyperkalemia Chest pain Qualified Code: R07.9 - Chest pain, unspecified type Dehydration Admitting Information Admitting Physician Requests: Admit Anastasia Yu Sep 29, 2016 15:44
[2016-09-29] MEDS ORDERED: SODIUM CHLORIDE 0.9% FLUSH 10 ML FLUSH IVF PRN (15:45)
[2016-09-29] MEDS ORDERED: ASPIRIN 81 MG CHEW TAB PO ONE (15:45)
[2016-09-29] MEDS ORDERED: TYLE325T PO (16:18)
[2016-09-29] MEDS ORDERED: MULT-142 PO (16:18)
[2016-09-29] MEDS ORDERED: ZOFR4TAB PO (16:18)
[2016-09-29] MEDS ORDERED: DULC10SU3 RECTAL (16:18)
[2016-09-29] MEDS ORDERED: ZINC220T PO (16:18)
[2016-09-29] MEDS ORDERED: CITRSOL4 PO (16:18)
[2016-09-29] MEDS ORDERED: C 50TAB PO (16:18)
[2016-09-29] MEDS ORDERED: ENEMENE5 RECTAL (16:18)
[2016-09-29] MEDS ORDERED: MILKSUS PO (16:18)
--- NOTE | 2016-09-29 16:27 | RADRPT ---
EXAM DATE/TIME: 09/29/2016 16:02 [facility] COMPARISON: CHEST SINGLE AP, September 16, 2016, 21:58. INDICATIONS : Chest pain today. MEDICAL HISTORY : Congestive heart failure. Hepatitis. SURGICAL HISTORY : Hysterectomy. Fusion, lumbar. Skin grafts, abdominal sx, port ENCOUNTER: Initial ACUITY: 1 day PAIN SCORE: 5/10 LOCATION: Bilateral chest FINDINGS: The heart remains enlarged. A right internal jugular [id number] has its tip in the superior vena c dina. There is no pneumothorax. The lungs are clear. Degenerative changes and scoliosis of the thor acolumbar spine are noted. Chronic arthroplasty involving the shoulders as well as probable chronic dislocations of both shoulders are noted. Clinical correlation is recommended. Extensive calcificat ion is noted involving the left upper arm and is stable. CONCLUSION: 1. Cardiomegaly. 2. No acute focal pulmonary infiltrates or pulmonary vascular congestion. 3. Chronic arthritic changes and probable dislocations of both shoulders. 4. Extensive soft tissue calcification of the left upper arm which is stable. Garret Marlow MD on September 29, 2016 at 16:18 Board Certified Radiologist. This report was verified electronically.
[2016-09-29 16:45] LABS: BASOPHIL % 0.7 % (0.0-2.0); EOSINOPHIL % 0.9 % (0.0-4.0); HEMATOCRIT 25.2 % (35.0-46.0); HEMO FLAGS DIFF FINAL; LYMPH % 10.2 % (9.0-44.0); LYMPHOCYTE # 0.6 TH/MM3 (1.0-4.8); MEAN CELL VOLUME 99.6 FL (80.0-100.0); MEAN CORPUSCULAR HEMOGLOBIN 33.6 PG (27.0-34.0); MEAN CORPUSCULAR HGB CONC 33.7 % (32.0-36.0); MONO % 14.6 % (0.0-8.0); NEUT % 73.6 % (16.0-70.0); PLATELET COUNT 325 TH/MM3 (150-450); RED BLOOD COUNT 2.53 MIL/MM3 (4.00-5.30); RED CELL DISTRIBUTION WIDTH 18.2 % (11.6-17.2); WHITE BLOOD COUNT 5.4 TH/MM3 (4.0-11.0)
[2016-09-29 17:01] LABS: APTT (PATIENT) 69.5 SEC (24.3-30.1); PROTHROMBIN TIME - PATIENT 10.6 SEC (9.8-11.6)
[2016-09-29 17:29] LABS: ALKALINE PHOSPHATASE 109 U/L (45-117); ALT (GPT) 24 U/L (10-53); ANION GAP 7 MEQ/L (5-15); AST (GOT) 19 U/L (15-37); BICARBONATE 28.3 MEQ/L (21.0-32.0); BLOOD UREA NITROGEN 64 MG/DL (7-18); CHLORIDE 94 MEQ/L (98-107); CREATINE KINASE 32 U/L (26-192); GLOMERULAR FILTRATION RATE 13 ML/MIN (>89); MAGNESIUM 2.8 MG/DL (1.5-2.5); SODIUM (NA) 129 MEQ/L (136-145); TOTAL BILIRUBIN ADULT 0.5 MG/DL (0.2-1.0)
[2016-09-29 17:31] LABS: POTASSIUM 7.1 MEQ/L (3.5-5.1)
[2016-09-29] MEDS ORDERED: CALCIUM GLUCONATE INJ 1 GM in SODIUM CHLORIDE 0.9% INJ 100 ML IV ONE (18:00)
[2016-09-29 18:27] LABS: BICARBONATE 28.6 MEQ/L (21.0-32.0)
[2016-09-29] MEDS ORDERED: SODIUM CHLORID 0.9% 500 ML INJ 500 ML IV ONE (18:30)
[2016-09-29 18:32] LABS: POTASSIUM 7.2 MEQ/L (3.5-5.1)
[2016-09-29] MEDS ORDERED: INSULIN HUMAN REGULAR 1,000 UNITS/10 ML VIAL IV PUSH ONE (18:45)
[2016-09-29] MEDS ORDERED: RESP: ALBUTEROL 2.5 MG/3 ML NEB (SCH) INH ONE (18:45)
[2016-09-29] MEDS ORDERED: DEXTROSE 50% IN WATER 50 ML VIAL(D50) IV PUSH ONE (18:45)
[2016-09-29] MEDS ORDERED: SODIUM POLYSTYRENE SULFONATE SUSP 15 GM/60 ML CUP PO ONE (18:45)
[2016-09-29] MEDS ORDERED: ACETAMINOPHEN 500 MG CPLT PO ONE (19:00)
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
[2016-09-29] MEDS ORDERED: CHLORHEXIDINE GLUCONATE 2 % 1 PACK (2 CLOTHS) TOP PRN (19:45)
[2016-09-29] MEDS ORDERED: NON-FORMULARY DRUG (Ondansetron (Zofran) 4 MG) PO PRN (19:45)
[2016-09-29] MEDS ORDERED: ONDANSETRON HCL 4 MG/2 ML VIAL IV PRN (19:45)
[2016-09-29] MEDS ORDERED: LACTULOSE SYRUP 20 GM/30 ML CUP PO PRN (19:45)
[2016-09-29] MEDS ORDERED: MAGNESIUM HYDROXIDE SUSP 30 ML CUP PO PRN ×2 (19:45)
[2016-09-29] MEDS ORDERED: SODIUM CHLORIDE 0.9% FLUSH 10 ML FLUSH PRN (19:45)
[2016-09-29] MEDS ORDERED: PROCHLORPERAZINE 25 MG SUPP RECTAL PRN (19:45)
[2016-09-29] MEDS ORDERED: SENNOSIDES 8.6 MG TAB PO PRN (19:45)
[2016-09-29] MEDS ORDERED: ACETAMINOPHEN 325 MG TAB PO PRN (19:45)
[2016-09-29] MEDS ORDERED: BISACODYL 10 MG SUPP RECTAL PRN (19:45)
[2016-09-29] MEDS ORDERED: METOCLOPRAMIDE HCL 10 MG/2 ML VIAL IV PRN (19:45)
[2016-09-29] MEDS ORDERED: RESP: ALBUTEROL 2.5 MG/IPRATROPIUM 0.5 MG NEB (PRN) INH (19:45)
[2016-09-29] MEDS ORDERED: MISCELLANEOUS NURSING INFORMATION XX SCH (19:45)
--- NOTE | 2016-09-29 20:09 | RADRPT ---
EXAM DATE/TIME: 09/29/2016 19:44 [facility] COMPARISON: No previous studies available for comparison. INDICATIONS : Diffuse abdomen pain in lower region. ORAL CONTRAST: No oral contrast ingested. RADIATION DOSE: 10.26 CTDIvol (mGy) MEDICAL HISTORY : Cardiovascular disease. Myocardial infarction. Hepatitis.Hx of MRSA SURGICAL HISTORY : Hysterectomy. Appendectomy. ENCOUNTER: Initial ACUITY: 1 day PAIN SCALE: 4/10 LOCATION: Bilateral lower quadrant TECHNIQUE: Volumetric scanning of the abdomen and pelvis was performed. Using automated exposure control and ad justment of the mA and/or kV according to patient size, radiation dose was kept as low as reasonably achievable to obtain optimal diagnostic quality images. DICOM format image data is available electro nically for review and comparison. FINDINGS: LOWER LUNGS: The visualized lower lungs are clear. LIVER: Homogeneous density without lesion. There is no dilation of the biliary tree. Vicarious excretion o f contrast is noted in the gallbladder with several small filling defects which may represent small g allstones. SPLEEN: Normal size without lesion. PANCREAS: Within normal limits. KIDNEYS: Normal in size and shape. There is no mass or hydronephrosis. There is a small nonobstructing right renal calculus. ADRENAL GLANDS: Within normal limits. VASCULAR: There is no aortic aneurysm. BOWEL/MESENTERY: No oral contrast was given limiting the sensitivity of the exam. Gas and stool is noted segmentally i n the colon with multiple loops of nondilated air-containing small bowel several small air-fluid leve ls. There is no evidence of free air or definite fluid. Visualization is suboptimal due to lack of or al contrast. ABDOMINAL WALL: Within normal limits. RETROPERITONEUM: There is no lymphadenopathy. BLADDER: No wall thickening or mass. A Simpson catheter is present. REPRODUCTIVE: Within normal limits. INGUINAL: There is no lymphadenopathy or hernia. MUSCULOSKELETAL: Osteopenia, degenerative change and scoliosis. There are postoperative changes in the lumbar spine st atus post multilevel fusion. There are old fracture deformities involving both pubic rami.CONCLUSION: 1. Mildly nonspecific, nonobstructive bowel gas pattern which could represent an ileus and or gastroe nteritis. No oral contrast was given limiting the sensitivity. 2. Small nonobstructing right renal calculus. 3. Vicarious excretion of contrast into the gallbladder with small filling defects which likely repre sent small gallstones. Epifanio Sweeney MD on September 29, 2016 at 20:03 Board Certified Radiologist. This report was verified electronically.
[2016-09-29 20:34] LABS: BLOOD, URINE NEG (NEG); GLUCOSE,URINE NEG (NEG); HYALINE CAST, URINE 1 /lpf (RARE); KETONE, URINE NEG (NEG); NITRITE,URINE NEG (NEG); PH, URINE 7.5 (5.0-8.5); SQUAMOUS EPITHELIAL CELL URINE <1 /hpf (0-5); URINE COLOR YELLOW (YELLW/STRAW)
[2016-09-29 20:35] LABS: COMMENT (UR) CATH-CULT NOT IND; CULTURE IF INDICATED CATH CULTURE NOT IND
[2016-09-29] MEDS: MORPHINE SULFATE 30 MG CONTROLLED RELEASE TAB PO SCH (20:51)
[2016-09-29] MEDS: HEPARIN SODIUM - SQ 10,000 UNITS/ML VIAL SQ SCH (20:52)
[2016-09-29] MEDS: ASCORBIC ACID 500 MG TAB PO SCH (20:52)
[2016-09-29] MEDS: FAMOTIDINE 20 MG TAB PO SCH (20:52)
[2016-09-29] MEDS: DOCUSATE SODIUM 50 MG/SENNA 8.6 MG TAB PO SCH (20:52)
[2016-09-29] MEDS: SODIUM CHLORIDE 0.9% FLUSH 10 ML FLUSH SCH (20:53)
[2016-09-29] MEDS: SODIUM CHLOR 0.9% 1000 ML INJ 1,000 ML IV SCH (20:53)
[2016-09-29] MEDS: GENTAMICIN SULFATE 0.1% CREAM 15 GM TOPICAL SCH (20:53)
--- NOTE | 2016-09-29 22:48 | RADRPT ---
EXAM DATE/TIME: 09/29/2016 21:58 [facility] COMPARISON: CT ABDOMEN & PELVIS W/O CONTRAST, September 29, 2016, 19:44. INDICATIONS : Along the lateral kidney MEDICAL HISTORY : Myocardial infarction. Congestive heart failure. Gastroesophageal reflux disease. Coronary artery dis ease. Asthma. Osteoporosis. Hepatitis. Depression. Blood dyscrasias. Anemia. MRSA. SURGICAL HISTORY : Tonsillectomy. Appendectomy. Hysterectomy. Skin grafts. Back surgery. ENCOUNTER: Initial ACUITY: 1 week PAIN SCORE: 2/10 LOCATION: Bilateral flank MEASUREMENTS: RIGHT KIDNEY: 7.7 x 3.6 x 3.4 cm LEFT KIDNEY: 8.5 x 3.0 x 3.6 cm FINDINGS: RIGHT KIDNEY: The right kidney is small and atrophic in appearance with increased echogenicity equal to that of the adjacent liver. There is no definite evidence of hydronephrosis. There is no focal mass or calculi. LEFT KIDNEY: The left kidney is small and atrophic in appearance with increased echogenicity. There is no evidence of hydronephrosis, solid mass or calculi. There is a small cyst along the lateral kidney. BLADDER: Within normal limits given the degree of distension. CONCLUSION: 1. No evidence of hydronephrosis. 2. The kidneys are small and increased in echogenicity consistent with medical renal disease. 3. Normal cyst along the lateral kidney. 4. The known small right renal calculus seen on CT is not visualized. Epifanio Sweeney MD on September 29, 2016 at 22:40 Board Certified Radiologist. This report was verified electronically.
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
[2016-09-29] MEDS: MORPHINE SULFATE 30 MG TAB PO PRN (23:44)
[2016-09-30] VITALS (10 sets, daily range): BP systolic 93–114; BP diastolic 52–59; PULSE 76–99; RESP 17–24; TEMP 97.5–98.3; O2SAT 94–99
[2016-09-30 01:40] LABS: ANION GAP 9 MEQ/L (5-15); BICARBONATE 24.8 MEQ/L (21.0-32.0); BLOOD UREA NITROGEN 65 MG/DL (7-18); CHLORIDE 101 MEQ/L (98-107); GLOMERULAR FILTRATION RATE 14 ML/MIN (>89); POTASSIUM 5.9 MEQ/L (3.5-5.1); SODIUM (NA) 135 MEQ/L (136-145)
[2016-09-30] MEDS: CHLORHEXIDINE GLUCONATE 2 % 1 PACK (2 CLOTHS) TOP SCH (04:00)
[2016-09-30 05:02] LABS: AUTOMATED NEUTROPHIL # 2.9 TH/MM3 (1.8-7.7); BASOPHIL # 0.1 TH/MM3 (0-0.2); BASOPHIL % 1.2 % (0.0-2.0); EOSINOPHIL # 0.1 TH/MM3 (0-0.4); EOSINOPHIL % 1.6 % (0.0-4.0); HEMATOCRIT 24.1 % (35.0-46.0); HEMO FLAGS DIFF FINAL; LYMPH % 17.3 % (9.0-44.0); LYMPHOCYTE # 0.8 TH/MM3 (1.0-4.8); MEAN CELL VOLUME 100.6 FL (80.0-100.0); MEAN CORPUSCULAR HEMOGLOBIN 33.5 PG (27.0-34.0); MEAN CORPUSCULAR HGB CONC 33.3 % (32.0-36.0); MONO % 13.6 % (0.0-8.0); NEUT % 66.3 % (16.0-70.0); PLATELET COUNT 300 TH/MM3 (150-450); RED BLOOD COUNT 2.39 MIL/MM3 (4.00-5.30); RED CELL DISTRIBUTION WIDTH 18.4 % (11.6-17.2); WHITE BLOOD COUNT 4.4 TH/MM3 (4.0-11.0)
[2016-09-30 05:31] LABS: ALT (GPT) 22 U/L (10-53); ANION GAP 8 MEQ/L (5-15); AST (GOT) 19 U/L (15-37); BLOOD UREA NITROGEN 59 MG/DL (7-18); CHLORIDE 103 MEQ/L (98-107); GLOMERULAR FILTRATION RATE 16 ML/MIN (>89); MAGNESIUM 2.7 MG/DL (1.5-2.5); SODIUM (NA) 136 MEQ/L (136-145)
[2016-09-30 05:33] LABS: ALKALINE PHOSPHATASE 95 U/L (45-117); TOTAL BILIRUBIN ADULT 0.6 MG/DL (0.2-1.0); TOTAL PROTEIN SPE 7.6 GM/DL (6.0-7.6)
[2016-09-30] MEDS: SODIUM CHLOR 0.9% 1000 ML INJ 1,000 ML IV SCH ×2 (06:00→15:50)
--- NOTE | 2016-09-30 08:03 | EKG ---
Date Performed: 09/29/2016 Time Performed: 15:37:50 PTAGE: 75 years EKG: ATRIAL FIBRILLATION LOW QRS VOLTAGE IN PRECORDIAL LEADS POSSIBLE ANTERIOR MYOCARDIAL INFARC TION ABNORMAL RHYTHM ECG PREVIOUS TRACING : 09/16/2016 18.12 DOCTOR: Ronal Wu Interpretating Date/Time 09/30/2016 07:57:48
[2016-09-30] MEDS ORDERED: SODIUM POLYSTYRENE SULFONATE SUSP 15 GM/60 ML CUP PO ONE (08:45)
--- NOTE | 2016-09-30 08:47 | HHI.CCPN ---
Subjective Remarks/Hospital Course 75-year-old the white female with history of renal insufficiency, recent cystitis, who had been readmitted to the hospital with complaints of weakness and worsening of the renal failure from creatinine of 1.5 3.2 with a hyperkalemia potassium of 7.2 without EKG changes. She has a history of plasmacytoma. She has a port in place which is due to poor venous access and multiple blood transfusions for the lifetime. 09/30: Stable respiratory and hemodynamic function. Responding to hydration. Renal service following. Will transfer today. Objective Vital Signs Date Time Temp Pulse Resp B/P Pulse Ox O2 Delivery O2 Flow Rate FiO2 09/30/16 06:00 76 09/30/16 04:00 98.3 19 93/58 97 09/30/16 00:00 Room Air Result Diagram: 09/30/16 0404 09/30/16 0404 Imaging Last 24 hours Impressions Abdomen/Pelvis CT 09/29/16 1841 Signed Impressions: Service Date/Time: Thursday, September 29, 2016 19:44 - CONCLUSION: 1. Mildly nonspecific, nonobstructive bowel gas pattern which could represent an ileus and or gastroenteritis. No oral contrast was given limiting the sensitivity. 2. Small nonobstructing right renal calculus. 3. Vicarious excretion of contrast into the gallbladder with small filling defects which likely represent small gallstones. Epifanio Sweeney MD Chest X-Ray 09/29/16 1543 Signed Impressions: Service Date/Time: Thursday, September 29, 2016 16:02 - CONCLUSION: 1. Cardiomegaly. 2. No acute focal pulmonary infiltrates or pulmonary vascular congestion. 3. Chronic arthritic changes and probable dislocations of both shoulders. 4. Extensive soft tissue calcification of the left upper arm which is stable. Garret Marlow MD Objective Remarks GENERAL: Chronic pain. SKIN: Warm and dry. HEAD: Normocephalic. EYES: No scleral icterus. No injection or drainage. NECK: Supple, trachea midline. Airway widely patent. CARDIOVASCULAR: Regular rate and rhythm without murmurs, gallops, or rubs. RESPIRATORY: Breath sounds equal bilaterally. No accessory muscle use. GASTROINTESTINAL: Abdomen soft, non-tender, nondistended. BS active. MUSCULOSKELETAL: No cyanosis, or edema. BACK: Nontender without obvious deformity. No CVA tenderness. EXTREMITIES: No clubbing cyanosis or edema NEURO: Conversant, O X 3. 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 Transfer. Dario Damon MD Sep 30, 2016 08:47
[2016-09-30] MEDS: DILTIAZEM-CD 120 MG CAP ER PO SCH (08:56)
[2016-09-30] MEDS: ASCORBIC ACID 500 MG TAB PO SCH ×2 (08:56→21:14)
[2016-09-30] MEDS: ZINC SULFATE 220 MG CAP PO SCH (08:56)
[2016-09-30] MEDS: ISOSORBIDE MONONITRATE 30 MG TAB PO SCH (08:56)
[2016-09-30] MEDS: MORPHINE SULFATE 30 MG TAB PO PRN (08:56)
[2016-09-30] MEDS: FAMOTIDINE 20 MG TAB PO SCH ×2 (08:57→21:13)
[2016-09-30] MEDS: HEPARIN SODIUM - SQ 10,000 UNITS/ML VIAL SQ SCH ×2 (08:57→21:14)
[2016-09-30] MEDS: SODIUM CHLORIDE 0.9% FLUSH 10 ML FLUSH SCH ×2 (09:00→21:15)
[2016-09-30] MEDS: GENTAMICIN SULFATE 0.1% CREAM 15 GM TOPICAL SCH ×2 (09:03→21:27)
[2016-09-30] MEDS: DOCUSATE SODIUM 50 MG/SENNA 8.6 MG TAB PO SCH ×2 (10:40→21:14)
[2016-09-30] MEDS ORDERED: HYDROmorphone HCL PF 1 MG/ML VIAL IV PUSH ONE (11:00)
[2016-09-30] MEDS: MORPHINE SULFATE 30 MG CONTROLLED RELEASE TAB PO SCH ×2 (11:31→21:14)
--- NOTE | 2016-09-30 12:51 | HHI.NPPN ---
Subjective History of Present Illness 75 year old white female with ARF Dehydration hyperkalemia Review of Systems General Constitutional: Fatigue Objective Data Data 09/29/16 09/30/16 19:00 07:00 Output Total 850 ml Balance -850 ml Output Urine Total 850 ml # Bowel Movements 0 Vital Signs Date Time Temp Pulse Resp B/P Pulse Ox O2 Delivery O2 Flow Rate FiO2 09/30/16 12:00 83 09/30/16 12:00 98.1 96 21 93/52 98 09/30/16 10:00 99 09/30/16 08:00 97.9 96 17 114/56 99 09/30/16 08:00 90 09/30/16 07:00 83 Room Air 09/30/16 07:00 90 09/30/16 06:00 76 09/30/16 04:00 86 09/30/16 04:00 98.3 86 19 93/58 97 09/30/16 02:00 90 09/30/16 00:00 90 09/30/16 00:00 97.5 90 24 105/59 96 09/30/16 00:00 96 Room Air 09/29/16 23:00 91 09/29/16 21:00 92 18 104/57 96 Room Air 09/29/16 18:06 89 17 90/52 99 Room Air 09/29/16 17:00 74 16 94/57 98 Room Air 09/29/16 16:40 82 23 97/60 97 Room Air 09/29/16 15:50 90 12 118/62 99 Room Air 09/29/16 15:49 98 Room Air 09/29/16 15:47 91 18 109/60 100 Room Air 118/62 09/29/16 15:40 100 09/29/16 15:40 98.4 18 109/60 100 Room Air 09/29/16 15:38 99 18 109/60 100 -: 09/30/16 0404 09/30/16 0404 Physical Exam General Appearance: Well Developed Eyes Eye Exam: Pupils Equal Neck Neck Exam: Neck Supple Pulmonary Resp Exam: Clear Bilaterally, Breath Sounds Equal Cardiology CV Exam: Regular, Normal Sinus Rhythm Gastrointestinal/Abdomen GI Exam: Soft, Non-Tender, Bowel Sounds Present Extremeties Extremities Exam: No Edema Extremeties Remarks rt leg wound Assessment/Plan Problem List: (1) EMIR (acute kidney injury) Plan: Patient is recently discharged from the hospital her creatinine is declining she was dehydrated continue to hydrate and follow BMP She has a vague history of plasmacytoma I will check a serum protein electrophoresis hyperkalemia received more Kayexalate (2) Hyperkalemia Plan: She is being treated. Kayexalate given limit K in diet (3) Dehydration Plan: Needs IV hydration with normal saline (4) Afib Plan: Continue to monitor (5) Hyponatremia Plan: Renal insufficiency (6) CKD (chronic kidney disease) stage 4, GFR 15-29 ml/min Plan: limit K in diet Keven Manrique MD Sep 30, 2016 12:51
--- NOTE | 2016-09-30 13:47 | EKG ---
Date Performed: 09/30/2016 Time Performed: 13:41:16 PTAGE: 75 years EKG: BASELINE ARTIFACT PRESENT. ATRIAL FIBRILLATION POSSIBLE ANTERIOR MYOCARDIAL INFARCTION , OF INDETERMINATE AGE ABNORMAL ECG NO SIGNIFICANT CHANGE FROM PRIOR ELECTROCARDIOGRAM. PREVIOUS TRACING : 09/30/2016 09.17 DOCTOR: Gordon Barry Interpretating Date/Time 09/30/2016 13:45:17
--- NOTE | 2016-09-30 15:33 | EKG ---
Date Performed: 09/30/2016 Time Performed: 09:17:54 PTAGE: 75 years EKG: ATRIAL FIBRILLATION POSSIBLE ANTERIOR MYOCARDIAL INFARCTION , PROBABLY OLD ABNORMAL RHYTHM ECG PREVIOUS TRACING : 09/29/2016 15.37 DOCTOR: Ronal Wu Interpretating Date/Time 09/30/2016 15:32:28
--- NOTE | 2016-09-30 17:11 | PD.WCN.NOT ---
Wound Consult Description: Patient seen on for evaluation of wounds to RLE and Lower back.Patient is known to inpatient wound care. Patient turned to R side for wound assessment with assistance of telegraphic typewriter mechanic. Peeled back adhesive foam dressings in place to reveal 3 wounds to medial lower back just above the sacrum.2 of the lower back wounds appear unstageable with 100% coverage of yellow adherent slough noted to the middle and distal wounds. Proximal wound noted with 100% pink tissue. Minimal serous drainage noted on adhesive foam dressing without odor. No active drainage noted from wounds. Reapplied foam dressing back in place over wounds.Middle and distal wounds to lower back are measured as one and measure together 2 cm x 0.7cm x slough. Periwound is noted with blanchable erythema. Wound to proximal lower back is noted with 100% pink tissue and measures 0.6cm x 0.5cm x ~<0.1 cm. Minimal serous drainage noted on adhesive foam dressing without odor. Periwound is noted with blanchable erythema.Reapplied adhesive foam dressing back in place over wound Etiology of lower back wounds appears to be pressure related.Per patient, she had previous back surgery and has plates in place. Patient is constantly laying on back with C shape to spine that presses in to mattress. Patient also assessed with 100% pink partial thickness skin loss to R upper back that is dry and resolving measuring ~2 cm x ~2cm x ~<0.1.Left wound open to air Removed gauze dressing and Xeroform gauze in place to RLE extremity to reveal 3 RLE ulcers. Wound to R lateral lower leg presents as diffuse resolving leg ulcers measured as one ulcer, measuring 10cm x 4 cm x ~<0.1 cm with 100% clean pink tissue No active drainage noted on wound without odor.Old dressing noted with minimal sero-sanguinous drainage. Cleansed wound with gauze pad and saline. Applied Xeroform gauze in single layer just over wound bed. Covered with dry 4x4 gauze. Secured dressing with rolled gauze and tape.Periwound is unremarkable Wound to R medial lower leg ulcer presents with jagged wound margins Wound bed is noted with 100% pink tissue . Ulcer appears to be resolving and measures 9.3cm x 3cm x ~<0.1cm.No active drainage noted from wound.Old gauze pad dressing noted with minimal sero-sanguinous drainage. Cleansed wound with gauze pad and saline. Applied Xeroform gauze dressing in single layer just over wound bed. Covered with dry 4x4 gauze. Secured dressing with rolled gauze and tape. Wound to R anterior ankle presents with 50% pink tissue and 50% yellow tissue. Wound has no active drainage and no odor. Wound measures 0.9 cm x 0.6 cm x ~ 0.1cm .Wound margins are jagged and irregular. Old gauze pad dressing noted with minimal sero-sanguinous drainage. Cleansed wound with gauze pad and saline. Applied Xeroform gauze in single layer just over wound bed. Covered with dry 4x4 gauze. Secured dressing with rolled gauze and tape. Assessed R heel, R heel presents with stage 1 pressure injury to distal plantar R heel. Stage 2 pressure injury also noted to R lateral heel that presents as deflated partially unroofed bulla. Applied skin prep to pressure injuries on R heel and left open to air. Stage 1 pressure injury to R heel measures 2cm x 1.7cm. Stage 2 pressure injury to R heel measures 3.3cm x 0.6cm. L anterior sadler noted with partial thickness wound with 100% pink tissue.Minimal serous drainage noted without odor. Periwound is unremarkable. Cleansed wound with normal saline and applied Xeroform gauze dressing in single layer just over wound bed and secured with rolled gauze and tape. Communicated with: RN Mims Call placed to Doctor Mil Yu for orders Recommendation: Recommend to cleanse all wounds to R leg and L leg with normal saline and apply single layer Xeroform gauze just over wound beds and secured with rolled gauze and tape. Please change dressings every other day or PRN. Please apply skin prep to R lateral heel stage 2 pressure injury and stage 1 pressure injury to R plantar heel BID Please cleanse wounds to Lower medial back with normal saline only and apply Santyl ointment alla thick coverage to wound bed and cover with dry cover dressing. Please change dressing daily Karina Tomlin [facility] Sep 30, 2016 17:10
[2016-09-30] MEDS: HYDROmorphone HCL PF 1 MG/ML VIAL IV PUSH PRN (21:12)
[2016-09-30 22:32] LABS: ALBUMIN SPE 3.38 GM/DL (3.50-5.00); BETA GLOBULINS (SPE) 0.97 GM/DL (0.53-1.03)
[2016-10-01 00:10] VITALS: BP 103/66; PULSE 93; RESP 18; TEMP 97.9; O2SAT 100
[2016-10-01] MEDS: HYDROmorphone HCL PF 1 MG/ML VIAL IV PUSH PRN ×5 (01:41→20:22)
[2016-10-01] MEDS: SODIUM CHLOR 0.9% 1000 ML INJ 1,000 ML IV SCH ×3 (01:46→22:00)
[2016-10-01] MEDS: CHLORHEXIDINE GLUCONATE 2 % 1 PACK (2 CLOTHS) TOP SCH (03:17)
--- NOTE | 2016-10-01 04:58 | EKG ---
Date Performed: 09/30/2016 Time Performed: 20:25:37 PTAGE: 75 years EKG: ATRIAL FIBRILLATION WITH ABERRANT CONDUCTION OR VENTRICULAR PREMATURE COMPLEXES POSSIBLE AN TERIOR MYOCARDIAL INFARCTION , OF INDETERMINATE AGE ABNORMAL ECG COMPARED TO PRIOR ELECTROCARDIOGRAM, PVCs are present. PREVIOUS TRACING : 09/30/2016 13.41 DOCTOR: Gordon Barry Interpretating Date/Time 10/01/2016 04:58:18
[2016-10-01 05:14] VITALS: BP 112/66; PULSE 80; RESP 16; TEMP 96.9; O2SAT 99
[2016-10-01 08:00] VITALS: BP 115/56; PULSE 103; RESP 20; TEMP 98.3; O2SAT 100
[2016-10-01] MEDS: DOCUSATE SODIUM 50 MG/SENNA 8.6 MG TAB PO SCH ×2 (09:00→20:21)
[2016-10-01] MEDS: SODIUM CHLORIDE 0.9% FLUSH 10 ML FLUSH SCH ×2 (09:00→20:23)
[2016-10-01 09:08] LABS: HEMATOCRIT 24.6 % (35.0-46.0); MEAN CORPUSCULAR HEMOGLOBIN 33.1 PG (27.0-34.0); MEAN CORPUSCULAR HGB CONC 32.4 % (32.0-36.0); PLATELET COUNT 298 TH/MM3 (150-450); RED BLOOD COUNT 2.41 MIL/MM3 (4.00-5.30); RED CELL DISTRIBUTION WIDTH 17.8 % (11.6-17.2); REVIEW FLAG FINAL; WHITE BLOOD COUNT 4.3 TH/MM3 (4.0-11.0)
[2016-10-01 09:30] LABS: BICARBONATE 26.9 MEQ/L (21.0-32.0); POTASSIUM 5.2 MEQ/L (3.5-5.1)
[2016-10-01] MEDS: ZINC SULFATE 220 MG CAP PO SCH (09:34)
[2016-10-01] MEDS: DILTIAZEM-CD 120 MG CAP ER PO SCH (09:34)
[2016-10-01] MEDS: FAMOTIDINE 20 MG TAB PO SCH ×2 (09:34→20:22)
[2016-10-01] MEDS: ASCORBIC ACID 500 MG TAB PO SCH ×2 (09:34→20:22)
[2016-10-01] MEDS: MORPHINE SULFATE 30 MG CONTROLLED RELEASE TAB PO SCH ×2 (09:35→20:21)
[2016-10-01] MEDS: ISOSORBIDE MONONITRATE 30 MG TAB PO SCH (09:35)
[2016-10-01] MEDS: GENTAMICIN SULFATE 0.1% CREAM 15 GM TOPICAL SCH ×2 (09:36→20:23)
[2016-10-01] MEDS: HEPARIN SODIUM - SQ 10,000 UNITS/ML VIAL SQ SCH ×2 (09:36→20:22)
[2016-10-01 12:00] VITALS: BP 93/56; PULSE 102; RESP 20; TEMP 97.7; O2SAT 98
--- NOTE | 2016-10-01 14:03 | HHI.PR ---
Subjective Remarks awake and alert, no nausea or vomiting fam bag in place- good urine output states no BM yet Objective Vitals Vital Signs Date Time Temp Pulse Resp B/P Pulse Ox O2 Delivery O2 Flow Rate FiO2 10/01/16 12:00 97.7 102 20 93/56 98 10/01/16 08:00 98.3 103 20 115/56 100 10/01/16 06:46 16 10/01/16 05:14 96.9 80 16 112/66 99 10/01/16 00:10 97.9 93 18 103/66 100 09/30/16 21:55 16 09/30/16 20:10 98.0 94 18 106/56 94 09/30/16 14:40 97.5 99 18 103/57 97 I/O 09/30/16 09/30/16 09/30/16 10/01/16 10/01/16 10/01/16 07:00 15:00 23:00 07:00 15:00 23:00 Intake Total 487 ml Output Total 850 ml 800 ml Balance -850 ml -313 ml Intake IV Total 487 ml Output Urine Total 850 ml 800 ml # Bowel Movements 0 Result Diagram: 10/01/1652110/01/16521 Objective Remarks awake and alert, NAD anicteric lungs no rales irregular rhythm abdomen soft, good bowel sounds fam in place no leg swelling moves all extremities spontaneously Urinary Catheter: Yes Assessment to: Continue Fam insert reason: Measure Accurate Output Date of Insertion: Sep 29, 2016 A/P Assessment and Plan Acute renal failure- creatinine trending down- good urine output - Nonobstructing imaging results - IV fluid hydration - Management per nephrology - Follow-up creatinine and electrolyte levels - Strict I's and O's HYperkalemia- trending down, good urine output -give [id number] 15 gm- will help with constipation 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 DC planning this weekend Joce Ahumada MD Oct 01, 2016 14:02
[2016-10-01] MEDS ORDERED: SODIUM POLYSTYRENE SULFONATE SUSP 15 GM/60 ML CUP PO ONE (15:00)
[2016-10-01 16:45] VITALS: BP 95/54; PULSE 96; RESP 20; TEMP 97.7; O2SAT 98
--- NOTE | 2016-10-01 18:02 | HHI.NPPN ---
Subjective History of Present Illness 75 year old white female with ARF Dehydration hyperkalemia Review of Systems General Constitutional: Fatigue Objective Data Data 09/30/16 10/01/16 19:00 07:00 Intake Total 487 ml Output Total 800 ml Balance -313 ml IV Total 487 ml Output Urine Total 800 ml Vital Signs Date Time Temp Pulse Resp B/P Pulse Ox O2 Delivery O2 Flow Rate FiO2 10/01/16 16:45 97.7 96 20 95/54 98 10/01/16 12:00 97.7 102 20 93/56 98 10/01/16 08:00 98.3 103 20 115/56 100 10/01/16 06:46 16 10/01/16 05:14 96.9 80 16 112/66 99 10/01/16 00:10 97.9 93 18 103/66 100 09/30/16 21:55 16 09/30/16 20:10 98.0 94 18 106/56 94 -: 10/01/16 0522 10/01/16 0522 Physical Exam General Appearance: Well Developed Eyes Eye Exam: Pupils Equal Neck Neck Exam: Neck Supple Pulmonary Resp Exam: Clear Bilaterally, Breath Sounds Equal Cardiology CV Exam: Regular, Normal Sinus Rhythm Gastrointestinal/Abdomen GI Exam: Soft, Non-Tender, Bowel Sounds Present Extremeties Extremities Exam: No Edema Extremeties Remarks rt leg wound Assessment/Plan Problem List: (1) EMIR (acute kidney injury) Plan: Patient is recently discharged from the hospital her creatinine is declining she was dehydrated continue to hydrate and follow BMP She has a vague history of plasmacytoma I serum protein electrophoresis did not show any abnormality hyperkalemia resolving 5.2 (2) Hyperkalemia Plan: She is being treated. Kayexalate given limit K in diet (3) Dehydration Plan: Needs IV hydration with normal saline (4) Afib Plan: Continue to monitor (5) Hyponatremia Plan: Renal insufficiency (6) CKD (chronic kidney disease) stage 4, GFR 15-29 ml/min Plan: limit K in diet Keven Manrique MD Oct 01, 2016 18:02
[2016-10-01 20:00] VITALS: BP 92/51; PULSE 99; RESP 17; TEMP 98.2; O2SAT 98
[2016-10-02] VITALS (8 sets, daily range): BP systolic 85–108; BP diastolic 49–65; PULSE 62–128; RESP 16–18; TEMP 97.3–98; O2SAT 98–100
[2016-10-02] MEDS: HYDROmorphone HCL PF 1 MG/ML VIAL IV PUSH PRN ×2 (00:24→09:19)
[2016-10-02] MEDS: CHLORHEXIDINE GLUCONATE 2 % 1 PACK (2 CLOTHS) TOP SCH ×2 (03:17→19:50)
[2016-10-02 06:04] LABS: POTASSIUM 4.3 MEQ/L (3.5-5.1)
[2016-10-02] MEDS: SODIUM CHLOR 0.9% 1000 ML INJ 1,000 ML IV SCH ×2 (08:00→18:00)
[2016-10-02] MEDS: GENTAMICIN SULFATE 0.1% CREAM 15 GM TOPICAL SCH ×2 (09:00→21:14)
[2016-10-02] MEDS: ASCORBIC ACID 500 MG TAB PO SCH ×2 (09:13→21:08)
[2016-10-02] MEDS: MORPHINE SULFATE 30 MG CONTROLLED RELEASE TAB PO SCH ×2 (09:13→21:08)
[2016-10-02] MEDS: FAMOTIDINE 20 MG TAB PO SCH ×2 (09:13→21:08)
[2016-10-02] MEDS: DOCUSATE SODIUM 50 MG/SENNA 8.6 MG TAB PO SCH ×2 (09:13→21:00)
[2016-10-02] MEDS: DILTIAZEM-CD 120 MG CAP ER PO SCH (09:13)
[2016-10-02] MEDS: ISOSORBIDE MONONITRATE 30 MG TAB PO SCH (09:13)
[2016-10-02] MEDS: ZINC SULFATE 220 MG CAP PO SCH (09:13)
[2016-10-02] MEDS: HEPARIN SODIUM - SQ 10,000 UNITS/ML VIAL SQ SCH ×2 (09:14→21:07)
[2016-10-02] MEDS: SODIUM CHLORIDE 0.9% FLUSH 10 ML FLUSH SCH ×2 (09:18→19:50)
--- NOTE | 2016-10-02 10:04 | HHI.PR ---
Subjective Remarks po 100% no complains good urine output Objective Vitals Vital Signs Date Time Temp Pulse Resp B/P Pulse Ox O2 Delivery O2 Flow Rate FiO2 10/02/16 08:00 97.4 88 18 105/65 100 10/02/16 04:00 97.3 84 16 101/62 98 10/02/16 02:14 16 10/02/16 02:13 16 10/02/16 00:00 97.7 102 16 85/49 98 10/01/16 21:13 16 10/01/16 20:00 98.2 99 17 92/51 98 10/01/16 16:45 97.7 96 20 95/54 98 10/01/16 12:00 97.7 102 20 93/56 98 I/O 10/01/16 10/01/16 10/01/16 10/02/16 10/02/16 10/02/16 07:00 15:00 23:00 07:00 15:00 23:00 Intake Total 720 ml 480 ml 480 ml Output Total 1550 ml 600 ml 1100 ml Balance -830 ml -120 ml -620 ml Intake Oral 720 ml 480 ml 480 ml Output Urine Total 1550 ml 600 ml 1100 ml # Bowel Movements 1 Result Diagram: 10/01/16 0522 10/02/16 0330 Imaging Last 72 hours Impressions Abdomen/Pelvis CT 09/29/16 1841 Signed Impressions: Service Date/Time: Thursday, September 29, 2016 19:44 - CONCLUSION: 1. Mildly nonspecific, nonobstructive bowel gas pattern which could represent an ileus and or gastroenteritis. No oral contrast was given limiting the sensitivity. 2. Small nonobstructing right renal calculus. 3. Vicarious excretion of contrast into the gallbladder with small filling defects which likely represent small gallstones. Epifanio Sweeney MD Chest X-Ray 09/29/16 1543 Signed Impressions: Service Date/Time: Thursday, September 29, 2016 16:02 - CONCLUSION: 1. Cardiomegaly. 2. No acute focal pulmonary infiltrates or pulmonary vascular congestion. 3. Chronic arthritic changes and probable dislocations of both shoulders. 4. Extensive soft tissue calcification of the left upper arm which is stable. Garret Marlow MD Objective Remarks awake and alert, NAD anicteric lungs no rales irregular rhythm abdomen soft, good bowel sounds fam in place no leg swelling moves all extremities spontaneously Date of Insertion: Sep 29, 2016 A/P Assessment and Plan Acute renal failure- creatinine trending down- good urine output - Nonobstructing imaging results - IV fluid hydration - Management per nephrology - Follow-up creatinine and electrolyte levels - Strict I's and O's HYperkalemia- resolved Chronic pain syndrome - Due to plasmocytoma - Morphine ER (Morphine Sulfate) 30 Mg Tab 30 Mg PO Q12HR - Morphine IR (Morphine Sulfate) 30 Mg Tab 30 Mg PO Q4H PRN Constipation + BM - Due to opioids - Milk of Magnesia Liq - Dulcolax Supp PRN - Citroma Liq PRN- Atrial fibrillation, chronic - in SR - Diltiazem CD - aim for rate control, will not start on chronic OAC - history of bloody dyscrasia- requiring multiple transfusion COPD - No exacerbation - No indication for steroids - DuoNeb's when necessary DVT GI prophylaxis - Teds SCDs Subcutaneous heparin and Pepcid Overall impression: Improving renal function. DC planning this weekend Joce Ahumada MD Oct 02, 2016 10:04
--- NOTE | 2016-10-02 11:17 | HHI.NPPN ---
Subjective History of Present Illness 75 year old white female with ARF Dehydration hyperkalemia Additional Remarks Reports feeling better today Review of Systems General Constitutional: Fatigue Objective Data Data 10/01/16 10/02/16 19:00 07:00 Intake Total 720 ml 960 ml Output Total 1550 ml 1700 ml Balance -830 ml -740 ml Intake Oral 720 ml 960 ml Output Urine Total 1550 ml 1700 ml # Bowel Movements 1 Vital Signs Date Time Temp Pulse Resp B/P Pulse Ox O2 Delivery O2 Flow Rate FiO2 10/02/16 08:00 97.4 88 18 105/65 100 10/02/16 04:00 97.3 84 16 101/62 98 10/02/16 02:14 16 10/02/16 02:13 16 10/02/16 00:00 97.7 102 16 85/49 98 10/01/16 21:13 16 10/01/16 20:00 98.2 99 17 92/51 98 10/01/16 16:45 97.7 96 20 95/54 98 10/01/16 12:00 97.7 102 20 93/56 98 -: 10/01/16 0522 10/02/16 0330 Physical Exam General Appearance: Well Developed Eyes Eye Exam: Pupils Equal Neck Neck Exam: Neck Supple Pulmonary Resp Exam: Clear Bilaterally, Breath Sounds Equal Cardiology CV Exam: Regular, Normal Sinus Rhythm Gastrointestinal/Abdomen GI Exam: Soft, Non-Tender, Bowel Sounds Present Extremeties Extremities Exam: No Edema Assessment/Plan Problem List: (1) EMIR (acute kidney injury) Plan: Electrolytes improved with IVFs - EMIR due to volume depletion Now tolerating PO intake. Continue IVFs for now, electrolytes are stable. She has a vague history of plasmacytoma - serum protein electrophoresis did not show any abnormality hyperkalemia resolved. If AM labs stable, ok for d/c from renal standpoint. (2) Hyperkalemia Plan: Improved, limit K+ in diet (3) Dehydration Plan: Continue to encourage PO intake, continue IVFs for now. (4) Afib Plan: Continue to monitor (5) Hyponatremia Plan: Due to EMIR - improved now (6) CKD (chronic kidney disease) stage 4, GFR 15-29 ml/min Plan: limit K in diet Mil Hernandez MD Oct 02, 2016 11:17
[2016-10-02] MEDS: MORPHINE SULFATE 15 MG TAB PO PRN (14:14)
[2016-10-03] VITALS (8 sets, daily range): BP systolic 102–118; BP diastolic 52–67; PULSE 72–96; RESP 16–18; TEMP 96.5–97.8; O2SAT 99–100
[2016-10-03] MEDS: TEMAZEPAM 15 MG CAP PO PRN ×2 (00:05→22:19)
[2016-10-03] MEDS: MORPHINE SULFATE 15 MG TAB PO PRN ×4 (00:06→18:29)
[2016-10-03] MEDS: SODIUM CHLOR 0.9% 1000 ML INJ 1,000 ML IV SCH (04:00)
[2016-10-03 07:00] LABS: BICARBONATE 23.1 MEQ/L (21.0-32.0); POTASSIUM 4.4 MEQ/L (3.5-5.1)
[2016-10-03] MEDS: FAMOTIDINE 20 MG TAB PO SCH ×2 (08:25→20:57)
[2016-10-03] MEDS: ASCORBIC ACID 500 MG TAB PO SCH ×2 (08:25→20:56)
[2016-10-03] MEDS: ZINC SULFATE 220 MG CAP PO SCH (08:25)
[2016-10-03] MEDS: DILTIAZEM-CD 120 MG CAP ER PO SCH (08:26)
[2016-10-03] MEDS: ISOSORBIDE MONONITRATE 30 MG TAB PO SCH (08:26)
[2016-10-03] MEDS: HEPARIN SODIUM - SQ 10,000 UNITS/ML VIAL SQ SCH ×2 (08:27→20:59)
[2016-10-03] MEDS: MORPHINE SULFATE 30 MG CONTROLLED RELEASE TAB PO SCH ×2 (08:28→20:58)
[2016-10-03] MEDS: DOCUSATE SODIUM 50 MG/SENNA 8.6 MG TAB PO SCH ×2 (08:29→21:00)
[2016-10-03] MEDS: SODIUM CHLORIDE 0.9% FLUSH 10 ML FLUSH SCH ×2 (08:29→20:58)
[2016-10-03] MEDS: GENTAMICIN SULFATE 0.1% CREAM 15 GM TOPICAL SCH ×2 (08:34→21:01)
[2016-10-03] MEDS: HYDROmorphone HCL PF 1 MG/ML VIAL IV PUSH PRN ×3 (09:30→22:20)
--- NOTE | 2016-10-03 10:03 | HHI.NPPN ---
Subjective History of Present Illness 75 year old white female with ARF Dehydration hyperkalemia Additional Remarks No acute complaints Review of Systems General Constitutional: Fatigue Objective Data Data 10/02/16 10/03/16 19:00 07:00 Intake Total 3600 ml 2170 ml Output Total 1325 ml 1800 ml Balance 2275 ml 370 ml Intake Oral 720 ml IV Total 3600 ml 1450 ml Output Urine Total 1325 ml 1800 ml # Bowel Movements 1 Vital Signs Date Time Temp Pulse Resp B/P Pulse Ox O2 Delivery O2 Flow Rate FiO2 10/03/16 08:00 97.7 77 18 106/61 99 10/03/16 04:00 16 10/03/16 00:00 97.8 91 16 105/52 100 10/02/16 20:00 107 10/02/16 20:00 97.9 85 16 108/62 100 10/02/16 16:59 98.0 80 16 101/57 100 10/02/16 13:59 128 10/02/16 12:00 98.0 62 16 103/53 100 -: 10/01/16 0522 10/03/16 0540 Physical Exam General Appearance: Well Developed Eyes Eye Exam: Pupils Equal Neck Neck Exam: Neck Supple Pulmonary Resp Exam: Clear Bilaterally, Breath Sounds Equal Cardiology CV Exam: Regular, Normal Sinus Rhythm Gastrointestinal/Abdomen GI Exam: Soft, Non-Tender, Bowel Sounds Present Extremeties Extremities Exam: No Edema Assessment/Plan Problem List: (1) EMIR (acute kidney injury) Plan: Electrolytes improved with IVFs - EMIR due to volume depletion Now tolerating PO intake. Creatinine improved to 1.0. Ok for d/c from renal standpoint. Will stop IVFs She has a vague history of plasmacytoma - serum protein electrophoresis did not show any abnormality hyperkalemia resolved. (2) Hyperkalemia Plan: Improved, (3) Dehydration Plan: Continue to encourage PO intake, continue IVFs for now. (4) Afib Plan: Continue to monitor (5) Hyponatremia Plan: Due to EMIR - improved now Mil Hernandez MD Oct 03, 2016 10:02
--- NOTE | 2016-10-03 11:37 | HHI.PR ---
Subjective Remarks complains of chronic back pain- ask pain meds RTC po 100% no nausea or vomiting + BM Objective Vitals Vital Signs Date Time Temp Pulse Resp B/P Pulse Ox O2 Delivery O2 Flow Rate FiO2 10/03/16 08:00 97.7 77 18 106/61 99 10/03/16 04:00 16 10/03/16 00:00 97.8 91 16 105/52 100 10/02/16 20:00 107 10/02/16 20:00 97.9 85 16 108/62 100 10/02/16 16:59 98.0 80 16 101/57 100 10/02/16 13:59 128 10/02/16 12:00 98.0 62 16 103/53 100 I/O 10/02/16 10/02/16 10/02/16 10/03/16 10/03/16 10/03/16 07:00 15:00 23:00 07:00 15:00 23:00 Intake Total 480 ml 3600 ml 480 ml 1690 ml Output Total 1100 ml 1325 ml 800 ml 1000 ml Balance -620 ml 2275 ml -320 ml 690 ml Intake Oral 480 ml 480 ml 240 ml IV Total 3600 ml 1450 ml Output Urine Total 1100 ml 1325 ml 800 ml 1000 ml # Bowel Movements 1 Result Diagram: 10/01/16 0522 10/03/16 0540 Imaging Last Impressions Abdomen/Pelvis CT 09/29/16 1841 Signed Impressions: Service Date/Time: Thursday, September 29, 2016 19:44 - CONCLUSION: 1. Mildly nonspecific, nonobstructive bowel gas pattern which could represent an ileus and or gastroenteritis. No oral contrast was given limiting the sensitivity. 2. Small nonobstructing right renal calculus. 3. Vicarious excretion of contrast into the gallbladder with small filling defects which likely represent small gallstones. Epifanio Sweeney MD Chest X-Ray 09/29/16 1543 Signed Impressions: Service Date/Time: Thursday, September 29, 2016 16:02 - CONCLUSION: 1. Cardiomegaly. 2. No acute focal pulmonary infiltrates or pulmonary vascular congestion. 3. Chronic arthritic changes and probable dislocations of both shoulders. 4. Extensive soft tissue calcification of the left upper arm which is stable. Garret Marlow MD Renal Ultrasound 09/29/16 0000 Signed Impressions: Service Date/Time: Thursday, September 29, 2016 21:58 - CONCLUSION: 1. No evidence of hydronephrosis. 2. The kidneys are small and increased in echogenicity consistent with medical renal disease. 3. Normal cyst along the lateral kidney. 4. The known small right renal calculus seen on CT is not visualized. Epifanio Sweeney MD Objective Remarks awake and alert, NAD anicteric lungs no rales irregular rhythm abdomen soft, good bowel sounds, no tenderness fam in place no leg swelling, moves all extremities spontaneously back- open wound small, minimal serous drainage Date of Insertion: Sep 29, 2016 A/P Assessment and Plan Acute renal failure- creatinine trending down- good urine output- Improved - Nonobstructing imaging results - IV fluid hydration- heplock and recheck labs in am - po intake improve - Follow-up creatinine and electrolyte levels - Strict I's and O's HYperkalemia- resolved Chronic pain syndrome History of plasmocytoma - Morphine ER (Morphine Sulfate) 30 Mg Tab 30 Mg PO Q12HR - Morphine IR (Morphine Sulfate) 30 Mg Tab 30 Mg PO Q4H PRN Constipation + BM - Due to opioids - Milk of Magnesia Liq - Dulcolax Supp PRN - Citroma Liq PRN- Atrial fibrillation, chronic - in SR - Diltiazem CD - aim for rate control, will not start on chronic OAC - history of bloody dyscrasia- requiring multiple transfusion COPD - No exacerbation - No indication for steroids - DuoNeb's when necessary DVT GI prophylaxis - Teds SCDs Subcutaneous heparin and Pepcid PT daily patient refused to go to SNF- states she had doctor's choice says she is independent- can we check home situation- safety- came in with severe dehydration wound care daily- back look into home situation- needs to assure safe discharge Joce Ahumada MD Oct 03, 2016 11:37
[2016-10-03] MEDS: COLLAGENASE OINT 30 GM TUBE TOPICAL SCH (13:28)
[2016-10-04] VITALS: BP 110/69; PULSE 95; RESP 16; TEMP 99.5; O2SAT 98
[2016-10-04] MEDS: MORPHINE SULFATE 15 MG TAB PO PRN ×3 (03:33→23:53)
[2016-10-04 04:00] VITALS: BP 118/68; PULSE 79; RESP 16; TEMP 97.6; O2SAT 99
[2016-10-04] MEDS: CHLORHEXIDINE GLUCONATE 2 % 1 PACK (2 CLOTHS) TOP SCH (04:00)
[2016-10-04] MEDS: HYDROmorphone HCL PF 1 MG/ML VIAL IV PUSH PRN ×3 (04:52→21:22)
[2016-10-04 06:54] LABS: BICARBONATE 19.9 MEQ/L (21.0-32.0); POTASSIUM 4.4 MEQ/L (3.5-5.1)
[2016-10-04 08:00] VITALS: BP 133/69; PULSE 86; PULSE 87; RESP 21; TEMP 96.8; O2SAT 99
[2016-10-04] MEDS: MORPHINE SULFATE 30 MG CONTROLLED RELEASE TAB PO SCH ×2 (08:46→21:20)
[2016-10-04] MEDS: HEPARIN SODIUM - SQ 10,000 UNITS/ML VIAL SQ SCH ×2 (08:47→21:21)
[2016-10-04] MEDS: ASCORBIC ACID 500 MG TAB PO SCH ×2 (08:47→21:20)
[2016-10-04] MEDS: ISOSORBIDE MONONITRATE 30 MG TAB PO SCH (08:47)
[2016-10-04] MEDS: DILTIAZEM-CD 120 MG CAP ER PO SCH (08:47)
[2016-10-04] MEDS: FAMOTIDINE 20 MG TAB PO SCH ×2 (08:48→21:00)
[2016-10-04] MEDS: DOCUSATE SODIUM 50 MG/SENNA 8.6 MG TAB PO SCH ×2 (08:48→21:20)
[2016-10-04] MEDS: COLLAGENASE OINT 30 GM TUBE TOPICAL SCH (08:49)
[2016-10-04] MEDS: ZINC SULFATE 220 MG CAP PO SCH (08:49)
[2016-10-04] MEDS: GENTAMICIN SULFATE 0.1% CREAM 15 GM TOPICAL SCH ×2 (08:50→21:24)
[2016-10-04] MEDS: SODIUM CHLORIDE 0.9% FLUSH 10 ML FLUSH SCH ×2 (09:00→21:21)
[2016-10-04 12:00] VITALS: BP 103/56; PULSE 88; RESP 21; TEMP 98.1; O2SAT 100
--- NOTE | 2016-10-04 13:11 | HHI.PR ---
Subjective Remarks patient states she wants to go home po 100% off IVF ambulates with a walker states she has friend s that checks on her Objective Vitals Vital Signs Date Time Temp Pulse Resp B/P Pulse Ox O2 Delivery O2 Flow Rate FiO2 10/04/16 08:00 87 10/04/16 08:00 96.8 86 21 133/69 99 10/04/16 05:22 17 10/04/16 04:33 18 10/04/16 04:00 97.6 79 16 118/68 99 10/04/16 00:00 99.5 95 16 110/69 98 10/03/16 21:58 18 10/03/16 20:02 89 10/03/16 20:00 97.5 93 16 118/67 99 10/03/16 16:00 96.5 74 18 102/57 99 I/O 10/03/16 10/03/16 10/03/16 10/04/16 10/04/16 10/04/16 07:00 15:00 23:00 07:00 15:00 23:00 Intake Total 1690 ml 1613 ml 480 ml 240 ml Output Total 1000 ml 300 ml 950 ml 550 ml Balance 690 ml 1313 ml -470 ml -310 ml Intake Oral 240 ml 720 ml 480 ml 240 ml IV Total 1450 ml 893 ml Output Urine Total 1000 ml 300 ml 950 ml 550 ml Result Diagram: 10/01/16 0522 10/04/16 0453 Imaging Last Impressions Abdomen/Pelvis CT 09/29/16 1841 Signed Impressions: Service Date/Time: Thursday, September 29, 2016 19:44 - CONCLUSION: 1. Mildly nonspecific, nonobstructive bowel gas pattern which could represent an ileus and or gastroenteritis. No oral contrast was given limiting the sensitivity. 2. Small nonobstructing right renal calculus. 3. Vicarious excretion of contrast into the gallbladder with small filling defects which likely represent small gallstones. Epifanio Sweeney MD Chest X-Ray 09/29/16 1543 Signed Impressions: Service Date/Time: Thursday, September 29, 2016 16:02 - CONCLUSION: 1. Cardiomegaly. 2. No acute focal pulmonary infiltrates or pulmonary vascular congestion. 3. Chronic arthritic changes and probable dislocations of both shoulders. 4. Extensive soft tissue calcification of the left upper arm which is stable. Garret Marlow MD Renal Ultrasound 09/29/16 0000 Signed Impressions: Service Date/Time: Thursday, September 29, 2016 21:58 - CONCLUSION: 1. No evidence of hydronephrosis. 2. The kidneys are small and increased in echogenicity consistent with medical renal disease. 3. Normal cyst along the lateral kidney. 4. The known small right renal calculus seen on CT is not visualized. Epifanio Sweeney MD Objective Remarks awake and alert, NAD anicteric lungs no rales irregular rhythm abdomen soft, good bowel sounds, no tenderness no leg swelling, moves all extremities spontaneously back- open wound small, minimal serous drainage Date of Insertion: Sep 29, 2016 A/P Assessment and Plan Acute renal failure- creatinine trending down- good urine output- Improved - Nonobstructing imaging results - po intake improved - Follow-up creatinine and electrolyte levels - Strict I's and O's HYperkalemia- resolved Chronic pain syndrome - Due to plasmocytoma - Morphine ER (Morphine Sulfate) 30 Mg Tab 30 Mg PO Q12HR - Morphine IR (Morphine Sulfate) 30 Mg Tab 30 Mg PO Q4H PRN Constipation + BM - Due to opioids - Milk of Magnesia Liq - Dulcolax Supp PRN - Citroma Liq PRN- Atrial fibrillation, chronic - in SR - Diltiazem CD - aim for rate control, will not start on chronic OAC - history of bloody dyscrasia- requiring multiple transfusion COPD - No exacerbation - No indication for steroids - DuoNeb's when necessary DVT GI prophylaxis - Teds SCDs Subcutaneous heparin and Pepcid PT daily patient refused to go to SNF- states she had doctor's choice says she is independent- can we check home situation- safety- came in with severe dehydration wound care daily- look into home situation- needs to assure safe discharge needs home [facility] check Joce Ahumada MD Oct 04, 2016 13:11
--- NOTE | 2016-10-04 13:20 | HHI.FF ---
Face to Face Verification Diagnosis: (1) EMIR (acute kidney injury) (2) Chronic pain Physical Therapy Order: Evaluate and Treat, Improve ambulation, Strength and gait training Speech Therapy Order: To Improve: Cognitive skills Home Health Nursing Order: Wound care and dressing changes Nursing assessment with vital signs Home Health Aide Order: To Assist In: power cutting machine operator and meal prep Well Logging Mud Analysis Captain Order: To Evaluate: Living conditions/environment, Support services I have seen patient Melisa Nicolas on 10/04/16. My clinical findings support the need for the requested home health care services because: Deconditioned w/ increased weakness Limited ability to care for self Need for psychosocial assistance High risk of falls I certify that my clinical findings support that this patient is homebound because: Post-op weakness Impaired cognitive ability/safety Need for psychosocial assistance Joce Ahumada MD Oct 04, 2016 13:20
--- NOTE | 2016-10-04 15:54 | HHI.FF ---
Face to Face Verification Diagnosis: (1) Renal insufficiency (2) CKD (chronic kidney disease) stage 4, GFR 15-29 ml/min (3) EMIR (acute kidney injury) (4) Dehydration Physical Therapy Order: Improve ambulation Occupational Therapy Order: Improve ADL Home Health Nursing Order: Medical education Signs/symptoms of disease process Nursing assessment with vital signs Laborer Prestressed Concrete Order: To Evaluate: Living conditions/environment, Support services I have seen patient Melisa Nicolas on 10/04/16. My clinical findings support the need for the requested home health care services because: Ltd mobility - disease progression Deconditioned w/ increased weakness Limited ability to care for self Need for psychosocial assistance I certify that my clinical findings support that this patient is homebound because: Need for psychosocial assistance Joce Ahumada MD Oct 04, 2016 15:54 Alejandro Ellis MD Oct 06, 2016 09:52
[2016-10-04 16:00] VITALS: BP 107/57; PULSE 75; PULSE 90; RESP 22; TEMP 98.7; O2SAT 98
[2016-10-04 20:00] VITALS: BP 120/64; PULSE 92; RESP 18; TEMP 98.1; O2SAT 98
[2016-10-05] VITALS (12 sets, daily range): BP systolic 96–131; BP diastolic 52–77; PULSE 68–99; RESP 16–20; TEMP 96.3–98.1; O2SAT 98–100
[2016-10-05] MEDS: CHLORHEXIDINE GLUCONATE 2 % 1 PACK (2 CLOTHS) TOP SCH (03:28)
[2016-10-05] MEDS: HYDROmorphone HCL PF 1 MG/ML VIAL IV PUSH PRN ×3 (03:34→22:01)
[2016-10-05 06:48] LABS: MEAN CELL VOLUME 101.9 FL (80.0-100.0); MEAN CORPUSCULAR HGB CONC 33.3 % (32.0-36.0); PLATELET COUNT 292 TH/MM3 (150-450); RED BLOOD COUNT 2.03 MIL/MM3 (4.00-5.30); RED CELL DISTRIBUTION WIDTH 17.4 % (11.6-17.2); WHITE BLOOD COUNT 4.3 TH/MM3 (4.0-11.0)
[2016-10-05 07:50] LABS: REVIEW FLAG FINAL
[2016-10-05 07:52] LABS: HEMATOCRIT 20.7 % (35.0-46.0)
--- NOTE | 2016-10-05 09:06 | HHI.PR ---
Subjective Remarks no complains of abdominal pain had a good brown BM this am no nasuea or vomiting feels stronger d/w - not going home today- H and H dropped Objective Vitals Vital Signs Date Time Temp Pulse Resp B/P Pulse Ox O2 Delivery O2 Flow Rate FiO2 10/05/16 05:15 16 10/05/16 04:00 96.4 95 18 126/69 99 10/05/16 02:43 81 10/05/16 02:04 16 10/05/16 00:00 97.8 68 18 117/68 99 10/04/16 22:07 16 10/04/16 20:00 98.1 92 18 120/64 98 10/04/16 16:00 98.7 90 22 107/57 98 10/04/16 16:00 75 10/04/16 12:00 98.1 88 21 103/56 100 I/O 10/04/16 10/04/16 10/04/16 10/05/16 10/05/16 10/05/16 07:00 15:00 23:00 07:00 15:00 23:00 Intake Total 240 ml 400 ml 360 ml 240 ml Output Total 550 ml 800 ml 300 ml 200 ml Balance -310 ml -400 ml 60 ml 40 ml Intake Oral 240 ml 400 ml 360 ml 240 ml Output Urine Total 550 ml 800 ml 300 ml 200 ml # Bowel Movements 0 0 0 Result Diagram: 10/05/16 0545 10/04/16 0453 Imaging Last Impressions Abdomen/Pelvis CT 09/29/16 1841 Signed Impressions: Service Date/Time: Thursday, September 29, 2016 19:44 - CONCLUSION: 1. Mildly nonspecific, nonobstructive bowel gas pattern which could represent an ileus and or gastroenteritis. No oral contrast was given limiting the sensitivity. 2. Small nonobstructing right renal calculus. 3. Vicarious excretion of contrast into the gallbladder with small filling defects which likely represent small gallstones. Epifanio Sweeney MD Chest X-Ray 09/29/16 1543 Signed Impressions: Service Date/Time: Thursday, September 29, 2016 16:02 - CONCLUSION: 1. Cardiomegaly. 2. No acute focal pulmonary infiltrates or pulmonary vascular congestion. 3. Chronic arthritic changes and probable dislocations of both shoulders. 4. Extensive soft tissue calcification of the left upper arm which is stable. Garret Marlow MD Renal Ultrasound 09/29/16 0000 Signed Impressions: Service Date/Time: Thursday, September 29, 2016 21:58 - CONCLUSION: 1. No evidence of hydronephrosis. 2. The kidneys are small and increased in echogenicity consistent with medical renal disease. 3. Normal cyst along the lateral kidney. 4. The known small right renal calculus seen on CT is not visualized. Epifanio Sweeney MD Objective Remarks awake and alert, NAD anicteric lungs no rales irregular rhythm abdomen soft, good bowel sounds, no tenderness no leg swelling, moves all extremities spontaneously back- open wound small, minimal serous drainage 10/04 exam Date of Insertion: Sep 29, 2016 Date of Removal: Oct 04, 2016 A/P Assessment and Plan Acute anemia on top of chronic anemia- patient with history of Plasmacytoma requiring periodic blood transfusions -no signs of active bleeding - will give 2 unit RBC now - states she ff up with Dr. Rajput- oncologist as OP - get OB stools Acute renal failure- creatinine trending down- good urine output- Resolved - Nonobstructing imaging results - po intake improve - Follow-up creatinine and electrolyte levels - Strict I's and O's HYperkalemia- resolved Chronic pain syndrome- pain controlled - Morphine ER (Morphine Sulfate) 30 Mg Tab 30 Mg PO Q12HR - Morphine IR (Morphine Sulfate) 30 Mg Tab 30 Mg PO Q4H PRN Constipation + BMs - Due to opioids - Milk of Magnesia Liq - Dulcolax Supp PRN - Citroma Liq PRN- Atrial fibrillation, chronic - in SR - Diltiazem CD - aim for rate control, will not start on chronic OAC - history of bloody dyscrasia- requiring multiple transfusion COPD - No exacerbation - No indication for steroids - DuoNeb's when necessary DVT GI prophylaxis - Teds SCDs Subcutaneous heparin and Pepcid PT daily patient adamant/refused to go to SNF- states she had doctor's choice says she is independent- CM- consulted- check home situation- safety- came in with severe dehydration wound care daily- back DC home tomorrow- if H and H improved Joce Ahumada MD Oct 05, 2016 09:06
[2016-10-05] MEDS: DOCUSATE SODIUM 50 MG/SENNA 8.6 MG TAB PO SCH ×2 (10:13→21:00)
[2016-10-05] MEDS: DILTIAZEM-CD 120 MG CAP ER PO SCH (10:13)
[2016-10-05] MEDS: FAMOTIDINE 20 MG TAB PO SCH ×2 (10:13→20:59)
[2016-10-05] MEDS: ASCORBIC ACID 500 MG TAB PO SCH ×2 (10:13→20:59)
[2016-10-05] MEDS: ZINC SULFATE 220 MG CAP PO SCH (10:13)
[2016-10-05] MEDS: MORPHINE SULFATE 30 MG CONTROLLED RELEASE TAB PO SCH ×2 (10:14→21:00)
[2016-10-05] MEDS: SODIUM CHLORIDE 0.9% FLUSH 10 ML FLUSH SCH ×2 (10:14→21:00)
[2016-10-05] MEDS: HEPARIN SODIUM - SQ 10,000 UNITS/ML VIAL SQ SCH ×2 (10:14→20:59)
[2016-10-05] MEDS: ISOSORBIDE MONONITRATE 30 MG TAB PO SCH (10:14)
[2016-10-05] MEDS: GENTAMICIN SULFATE 0.1% CREAM 15 GM TOPICAL SCH ×2 (10:15→21:01)
[2016-10-05] MEDS: COLLAGENASE OINT 30 GM TUBE TOPICAL SCH (10:15)
[2016-10-05 14:13] LABS: ANION GAP 6 MEQ/L (5-15); BICARBONATE 23.1 MEQ/L (21.0-32.0); BLOOD UREA NITROGEN 23 MG/DL (7-18); CHLORIDE 111 MEQ/L (98-107); GLOMERULAR FILTRATION RATE 78 ML/MIN (>89); POTASSIUM 4.6 MEQ/L (3.5-5.1); SODIUM (NA) 140 MEQ/L (136-145)
[2016-10-05] MEDS: MORPHINE SULFATE 15 MG TAB PO PRN (14:14)
[2016-10-05 14:37] LABS: FERRITIN 2379 NG/ML (8-252); TRANSFERRIN IRON PROFILE 170 MG/DL (200-360)
[2016-10-05] MEDS ORDERED: ACETAMINOPHEN 325 MG TAB PO ONE (15:30)
[2016-10-05] MEDS ORDERED: diphenhydrAMINE HCL 25 MG CAP PO SCH (15:30)
[2016-10-05] MEDS ORDERED: ALTEPLASE RECOMBINANT 2 MG VIAL IV FLUSH ONE (18:30)
[2016-10-05] MEDS ORDERED: diphenhydrAMINE HCL 25 MG CAP PO PRN (20:00)
[2016-10-05] MEDS ORDERED: ACETAMINOPHEN 325 MG TAB PO PRN (20:00)
[2016-10-05 20:14] LABS: HEMATOCRIT 23.3 % (35.0-46.0); MEAN CELL VOLUME 99.6 FL (80.0-100.0); MEAN CORPUSCULAR HEMOGLOBIN 33.1 PG (27.0-34.0); MEAN CORPUSCULAR HGB CONC 33.2 % (32.0-36.0); PLATELET COUNT 205 TH/MM3 (150-450); RED BLOOD COUNT 2.34 MIL/MM3 (4.00-5.30); RED CELL DISTRIBUTION WIDTH 20.1 % (11.6-17.2); REVIEW FLAG FINAL; WHITE BLOOD COUNT 4.6 TH/MM3 (4.0-11.0)
[2016-10-06] MEDS: TEMAZEPAM 15 MG CAP PO PRN (01:21)
[2016-10-06] MEDS: HYDROmorphone HCL PF 1 MG/ML VIAL IV PUSH PRN ×3 (03:24→16:50)
[2016-10-06 04:00] VITALS: BP 124/72; PULSE 86; RESP 18; TEMP 97.3; O2SAT 98
[2016-10-06] MEDS: CHLORHEXIDINE GLUCONATE 2 % 1 PACK (2 CLOTHS) TOP SCH (04:00)
[2016-10-06 05:48] LABS: AUTOMATED NEUTROPHIL # 2.5 TH/MM3 (1.8-7.7); BASOPHIL # 0.1 TH/MM3 (0-0.2); BASOPHIL % 1.4 % (0.0-2.0); EOSINOPHIL # 0.2 TH/MM3 (0-0.4); EOSINOPHIL % 4.6 % (0.0-4.0); HEMATOCRIT 25.7 % (35.0-46.0); HEMO FLAGS DIFF FINAL; LYMPHOCYTE # 0.9 TH/MM3 (1.0-4.8); MEAN CELL VOLUME 96.8 FL (80.0-100.0); MEAN CORPUSCULAR HEMOGLOBIN 32.9 PG (27.0-34.0); MONO % 11.8 % (0.0-8.0); NEUT % 60.2 % (16.0-70.0); PLATELET COUNT 302 TH/MM3 (150-450); RED BLOOD COUNT 2.65 MIL/MM3 (4.00-5.30); RED CELL DISTRIBUTION WIDTH 19.4 % (11.6-17.2); WHITE BLOOD COUNT 4.2 TH/MM3 (4.0-11.0)
[2016-10-06 06:06] LABS: BICARBONATE 20.8 MEQ/L (21.0-32.0); POTASSIUM 4.7 MEQ/L (3.5-5.1)
[2016-10-06 07:50] VITALS: BP 130/66; PULSE 74; PULSE 75; RESP 20; TEMP 96.8; O2SAT 99
[2016-10-06] MEDS: HEPARIN SODIUM - SQ 10,000 UNITS/ML VIAL SQ SCH (09:00)
[2016-10-06] MEDS: COLLAGENASE OINT 30 GM TUBE TOPICAL SCH (09:00)
[2016-10-06] MEDS: GENTAMICIN SULFATE 0.1% CREAM 15 GM TOPICAL SCH (09:00)
--- NOTE | 2016-10-06 09:53 | HHI.DCPOC ---
Discharge Care Plan Diagnosis: (1) CKD (chronic kidney disease) stage 4, GFR 15-29 ml/min (2) EMIR (acute kidney injury) (3) Afib (4) Hyponatremia (5) Dehydration (6) Chest pain (7) Elevated troponin Goals to Promote Your Health * To prevent worsening of your condition and complications * To maintain your health at the optimal level Directions to Meet Your Goals Take your medications as prescribed Follow your dietary instruction Follow activity as directed Keep your appointments as scheduled Take your immunizations and boosters as scheduled If your symptoms worsen call your PCP, if no PCP go to Urgent Care Center or Emergency Room Smoking is Dangerous to Your Health. Avoid second hand smoke Call the 24-hour hour crisis hotline for domestic abuse at Alejandro Ellis MD Oct 06, 2016 09:53
--- NOTE | 2016-10-06 09:54 | HHI.DS ---
Discharge Summary Admission Date Sep 29, 2016 at 19:02 Discharge Date: Oct 06, 2016 Admitting Diagnosis EMIR, Hyperkalemia, Chest Pain, Dehydration (1) Elevated troponin (2) Chest pain (3) Renal insufficiency (4) CKD (chronic kidney disease) stage 4, GFR 15-29 ml/min (5) EMIR (acute kidney injury) (6) Afib (7) Hyponatremia (8) Hyperkalemia (9) Dehydration (10) NSTEMI (non-ST elevated myocardial infarction) (11) Back pain CBC/BMP: 10/06/16 0500 10/06/16 0500 Significant Findings Laboratory Tests Test 10/04/16 10/05/16 10/05/16 10/05/16 04:53 05:45 13:45 19:51 Chloride Level 117 MEQ/L 111 MEQ/L (98-107) (98-107) Carbon Dioxide Level 19.9 MEQ/L (21.0-32.0) Blood Urea Nitrogen 23 MG/DL (7-18) 23 MG/DL (7-18) Estimat Glomerular Filtration 60 ML/MIN (>89) 78 ML/MIN (>89) Rate Calcium Level 7.8 MG/DL (8.5-10.1) Red Blood Count 2.03 MIL/MM3 2.34 MIL/MM3 (4.00-5.30) (4.00-5.30) Hemoglobin 6.9 GM/DL 7.7 GM/DL (11.6-15.3) (11.6-15.3) Hematocrit 20.7 % 23.3 % (35.0-46.0) (35.0-46.0) Mean Corpuscular Volume 101.9 FL (80.0-100.0) Red Cell Distribution Width 17.4 % 20.1 % (11.6-17.2) (11.6-17.2) Iron Level 238 MCG/DL (50-170) Total Iron Binding Capacity 238 MCG/DL (250-450) Percent Iron Saturation 100.0 % (20-50) Ferritin 2379 NG/ML (8-252) Antibody Screen POSITIVE Test 10/06/16 05:00 Red Blood Count 2.65 MIL/MM3 (4.00-5.30) Hemoglobin 8.7 GM/DL (11.6-15.3) Hematocrit 25.7 % (35.0-46.0) Red Cell Distribution Width 19.4 % (11.6-17.2) Monocytes (%) (Auto) 11.8 % (0.0-8.0) Eosinophils (%) (Auto) 4.6 % (0.0-4.0) Lymphocytes # (Auto) 0.9 TH/MM3 (1.0-4.8) Chloride Level 112 MEQ/L (98-107) Carbon Dioxide Level 20.8 MEQ/L (21.0-32.0) Blood Urea Nitrogen 21 MG/DL (7-18) Calcium Level 8.4 MG/DL (8.5-10.1) PE at Discharge GENERAL: SKIN: Warm and dry. HEAD: Atraumatic. Normocephalic. EYES: Pupils equal and round. No scleral icterus. No injection or drainage. ENT: No nasal bleeding or discharge. Mucous membranes pink and moist. NECK: Trachea midline. No JVD. CARDIOVASCULAR: Regular rate and rhythm. RESPIRATORY: No accessory muscle use. Clear to auscultation. Breath sounds equal bilaterally. GASTROINTESTINAL: Abdomen soft, non-tender, nondistended. Hepatic and splenic margins not palpable. MUSCULOSKELETAL: Extremities without clubbing, cyanosis, or edema. No obvious deformities. NEUROLOGICAL: Awake and alert. No obvious cranial nerve deficits. Motor grossly within normal limits. 3 out of 5 muscle strength in the arms and legs. Normal speech. PSYCHIATRIC: Appropriate mood and affect; insight and judgment normal. Hospital Course Acute anemia on top of chronic anemia- patient with history of Plasmacytoma requiring periodic blood transfusions -no signs of active bleeding - SP 2 unit RBC - states she ff up with Dr. Rajput- oncologist as OP - OB stools Acute renal failure- creatinine trending down- good urine output- Resolved - Nonobstructing imaging results - po intake improve - Follow-up creatinine and electrolyte levels - Strict I's and O's HYperkalemia- resolved Chronic pain syndrome- pain controlled - Morphine ER (Morphine Sulfate) 30 Mg Tab 30 Mg PO Q12HR - Morphine IR (Morphine Sulfate) 30 Mg Tab 30 Mg PO Q4H PRN Constipation + BMs - Due to opioids - Milk of Magnesia Liq - Dulcolax Supp PRN - Citroma Liq PRN- Atrial fibrillation, chronic - in SR - Diltiazem CD - aim for rate control, will not start on chronic OAC - history of bloody dyscrasia- requiring multiple transfusion COPD - No exacerbation - No indication for steroids - DuoNeb's when necessary DVT GI prophylaxis - Teds SCDs Subcutaneous heparin and Pepcid PT daily patient adamant/refused to go to SNF- states she had doctor's choice says she is independent- CM- consulted DC home. PT ADAMANT ABOUT NO SNF. CONFERENCED WITH PT AND PHYS THERAPY, PT HAS WALKED W ASSIST, AND USES WC TO MOVE ABOUT HER CONDO. SHE REQUESTS DC NOW. SHE AGREES AND UNDERSTANDS SHE IS UNLIKELY TO SURVIVE LONG AT HOME, YET SHE INSISTS ON TAKING A CHANCE AND BEING AT HOME. WE SPOKE ABOUT HOSPICE, AND SHE IS TO RECONSIDER AFTER BEING AT HOME. Discharge Disposition: Disch w/ Home Health Serv Discharge Instructions DIET: Follow Instructions for: Heart Healthy Diet Activities you can perform: Regular-No Restrictions Follow up Referrals: PCP Follow-up - 2-[address] COLEMAN New Medications: Collagenase (Santyl) 250 Unit/Gm Oin 1 APPLIC TOPICAL DAILY CELLTS #30 Ref 3 TUBE Continued Medications: Acetaminophen (Tylenol) 325 Mg Tab 650 MG PO Q4H PRN PAIN 1-10 AND/OR FEVER >101F Ref 0 TAB Ascorbic Acid (C 500) 500 Mg Tab 500 MG PO BID Wound Healing Bisacodyl Supp (Dulcolax Supp) 10 Mg Supp 10 MG RECTAL IN THE AM PRN NO RESULTS X1 DAY AFTER MOM #12 Ref 0 SUPP Diltiazem ER 24 HR (Dilt-Xr) 120 Mg Capdr 120 MG PO DAILY #30 Ref 0 CAP Famotidine (Famotidine) 20 Mg Tab 20 MG PO BID #60 Ref 0 TAB Furosemide (Furosemide) 40 Mg Tab 40 MG PO BID #60 Ref 0 TAB Gentamicin Topical (Gentamicin Topical) 0.1% Cream 1 APPLIC TOPICAL BID Apply to affected area(s) Infection Days 30 Ref 6 GM Isosorbide Mononitrate ER (Isosorbide Mononitrate ER) 30 Mg Louie 30 MG PO DAILY Prevent Chest Pain #30 Ref 0 TAB Magnesium Citrate Liq (Citroma Liq) 300 Ml Liq 300 ML PO IN THE AM PRN If no results after enema #1 Ref 0 BOTTLE Magnesium Hydroxide Liq (Milk of Magnesia Liq) 400 Mg/5 Ml Susp 30 ML PO HS PRN No BM in 3 days #1 Ref 0 BOTTLE Morphine ER (Morphine ER) 30 Mg Tab 30 MG PO Q12HR Pain Management #60 Ref 0 TAB NS Morphine IR (Morphine IR) 30 Mg Tab 30 MG PO Q4H PRN PAIN #180 Ref 0 TAB NS Multiple Vitamins W/ Minerals (Multi Vitamin and Mineral) 1 Tab Tab 1 TAB PO DAILY Nutritional Supplement Ondansetron (Zofran) 4 Mg Tab 4 MG PO Q6HR PRN NAUSEA OR VOMITING Ref 0 TAB Sodium Phosphates (Enema Disposable) 1 Laverne Laverne 1 APPLIC RECTAL in the am PRN If no results after dulcolax Spironolactone (Spironolactone) 50 Mg Tab 50 MG PO BIDPC #60 Ref 0 TAB Zinc Sulfate (Zinc Sulfate) 220 Mg Tab 220 MG PO DAILY Nutritional Supplement Ref 0 TAB Discontinued Medications: Sulfamethoxazole-Trimethoprim (Bactrim DS) 800-160 Mg Tab 1 TAB PO BID Infection #20 Ref 0 TAB Alejandro Coleman MD Oct 06, 2016 09:53
[2016-10-06] MEDS ORDERED: COLL30T TOPICAL (09:58)
[2016-10-06] MEDS: ZINC SULFATE 220 MG CAP PO SCH (10:12)
[2016-10-06] MEDS: MORPHINE SULFATE 15 MG TAB PO PRN ×2 (10:12→14:49)
[2016-10-06] MEDS: ASCORBIC ACID 500 MG TAB PO SCH (10:12)
[2016-10-06] MEDS: MORPHINE SULFATE 30 MG CONTROLLED RELEASE TAB PO SCH (10:12)
[2016-10-06] MEDS: DOCUSATE SODIUM 50 MG/SENNA 8.6 MG TAB PO SCH (10:13)
[2016-10-06] MEDS: DILTIAZEM-CD 120 MG CAP ER PO SCH (10:13)
[2016-10-06] MEDS: ISOSORBIDE MONONITRATE 30 MG TAB PO SCH (10:13)
[2016-10-06] MEDS: FAMOTIDINE 20 MG TAB PO SCH (10:13)
[2016-10-06] MEDS: SODIUM CHLORIDE 0.9% FLUSH 10 ML FLUSH SCH (10:15)
[2016-10-06 11:50] VITALS: BP 125/65; PULSE 90; RESP 20; TEMP 97.5; O2SAT 100
[2016-10-06 12:00] VITALS: PULSE 83
[2016-10-06 15:50] VITALS: BP 111/60; PULSE 84; RESP 20; TEMP 97.9; O2SAT 100
== END 2016-10-06 17:50 | disposition home health service (06) | DRG 683 ==
LOC: NEPE 15:14 → NEDA 19:02 → N03B 22:58 → HOCB 09-30 14:24
PROVIDERS: ADMIT Family Medicine; ATTEND Family Medicine
PROC: 30233N1 Transfusion of Nonautologous Red Blood Cells into Peripheral Vein, Percutaneous Approach (ICD-10-PCS; principal; 2016-10-05)
DX: N17.9 Acute kidney failure, unspecified (principal); C90.30 Solitary plasmacytoma not having achieved remission; I13.0 Hypertensive heart and chronic kidney disease with heart failure and stage 1 through stage 4 chronic kidney disease, or unspecified chronic kidney disease; I48.2 Chronic atrial fibrillation; E87.5 Hyperkalemia; I50.9 Heart failure, unspecified; J44.9 Chronic obstructive pulmonary disease, unspecified; G89.4 Chronic pain syndrome; E87.1 Hypo-osmolality and hyponatremia; E86.0 Dehydration; N18.4 Chronic kidney disease, stage 4 (severe); K59.03 Drug induced constipation; T40.2X5A Adverse effect of other opioids, initial encounter; R07.9 Chest pain, unspecified; S21.209A Unspecified open wound of unspecified back wall of thorax without penetration into thoracic cavity, initial encounter; X58.XXXA Exposure to other specified factors, initial encounter
CPT/HCPCS: 36430; 51702; 71010; 74176; 76775; 76937; 80048; 80053; 81001; 82272; 82550; 82570; 82607; 82728; 82746; 83540; 83550; 83690; 83735; 83880; 84100; 84132; 84165; 84300; 84484; 85025; 85027; 85610; 85730; 86850; 86900; 86901; 86920; 86922; 87205; 87641; 93005; 94664; 96365; J0610; J1170; J1642; J1644; J1815; J2997; J7030; J7040; J7613; P9016

== ENCOUNTER 2017-08-03 16:28 | Inpatient (IN) | payer MEDICARE, MEDICAID ==
[~2017-08-03] VITALS: Ht 152.4 cm; Wt 56.5 kg
[2017-08-03] VITALS (8 sets, daily range): BP systolic 111–150; BP diastolic 59–107; PULSE 118–164; RESP 22–53; TEMP 97.5–100.9; O2SAT 95–98
[~2017-08-03 16:28] MED LIST changes: -BACT800T5 PO; +C 50TAB PO; +CITRSOL4 PO; +COLL30T TOPICAL; +DULC10SU3 RECTAL; -DULO1CAP PO; +ENEMENE5 RECTAL; +MILKSUS PO; +MULT-142 PO; +TYLE325T PO; +ZINC220T PO; +ZOFR4TAB PO
[2017-08-03] MEDS ORDERED: ACETAMINOPHEN 650 MG SUPP RECTAL ONE (16:45)
[2017-08-03] MEDS ORDERED: SODIUM CHLOR 0.9% 1000 ML INJ 1,000 ML IV ONE ×4 (16:45→18:45)
[2017-08-03] MEDS: METOPROLOL TARTRATE 5 MG/5 ML VIAL IV PUSH PRN ×2 (16:57→17:09)
[2017-08-03] MEDS ORDERED: DAPT250I IV (17:34)
[2017-08-03] MEDS ORDERED: CYAN1000P IM (17:34)
[2017-08-03] MEDS ORDERED: MSIR15 PO (17:34)
[2017-08-03] MEDS ORDERED: WARF-18 PO (17:34)
[2017-08-03] MEDS ORDERED: NITR1SUB3 SL (17:34)
[2017-08-03] MEDS ORDERED: WARF4TAB51 PO (17:34)
[2017-08-03] MEDS ORDERED: METO1TAB9 PO (17:34)
[2017-08-03] MEDS ORDERED: FLUT50SP EACH NARE (17:34)
[2017-08-03] MEDS ORDERED: IPRASOL NEB ×2 (17:34)
[2017-08-03] MEDS ORDERED: MORP1TAB24 PO (17:34)
[2017-08-03] MEDS ORDERED: ISOS30TA17 PO (17:34)
[2017-08-03] MEDS ORDERED: LISI2.5T3 PO (17:34)
[2017-08-03] MEDS ORDERED: NSFLUSH5 IV FLUSH (17:34)
[2017-08-03] MEDS ORDERED: SENN8.6T81 PO (17:34)
[2017-08-03] MEDS ORDERED: CYCL10TA PO (17:34)
[2017-08-03] MEDS ORDERED: SODI650T PO (17:34)
--- NOTE | 2017-08-03 17:36 | RADRPT ---
EXAM DATE/TIME: 08/03/2017 17:18 [place] COMPARISON: CHEST SINGLE AP, September 29, 2016, 16:02. INDICATIONS : Short of breath. MEDICAL HISTORY : None. SURGICAL HISTORY : None. ENCOUNTER: Initial ACUITY: 1 day PAIN SCORE: 0/10 LOCATION: Bilateral chest FINDINGS: Limited examination. However the lungs are grossly clear. The heart size is enlarged but stable quinten red to the prior exam. No definite pleural effusions are demonstrated. The bony structures are stable . CONCLUSION: Limited study. However the lungs are grossly clear. Moderate cardiomegaly. Brown Smith MD on August 03, 2017 at 17:33 Board Certified Radiologist. This report was verified electronically.
[2017-08-03 17:53] LABS: LACTIC ACID SEPSIS PROTOCOL 9.4 mmol/L (0.4-2.0)
[2017-08-03] MEDS ORDERED: SODIUM CHLOR 0.9% 250 ML INJ 250 ML IV ONE (18:00)
[2017-08-03 18:03] LABS: AUTOMATED NEUTROPHIL # 8.5 TH/MM3 (1.8-7.7); BASOPHIL % 0.3 % (0.0-2.0); HEMATOCRIT 35.8 % (35.0-46.0); HEMOGLOBIN 11.6 GM/DL (11.6-15.3); LYMPH % 6.1 % (9.0-44.0); LYMPHOCYTE # 0.6 TH/MM3 (1.0-4.8); MEAN CELL VOLUME 100.1 FL (80.0-100.0); MEAN CORPUSCULAR HEMOGLOBIN 32.5 PG (27.0-34.0); MEAN CORPUSCULAR HGB CONC 32.4 % (32.0-36.0); MONOCYTE # 0.7 TH/MM3 (0-0.9); NEUT % 86.6 % (16.0-70.0); PLATELET COUNT 208 TH/MM3 (150-450); RED BLOOD COUNT 3.58 MIL/MM3 (4.00-5.30); RED CELL DISTRIBUTION WIDTH 17.9 % (11.6-17.2); WHITE BLOOD COUNT 9.8 TH/MM3 (4.0-11.0)
[2017-08-03 18:11] LABS: BACTERIA, URINE OCC /hpf; BILIRUBIN, URINE NEG (NEG); BLOOD, URINE MOD (NEG); GLUCOSE,URINE NEG (NEG); HYALINE CAST, URINE 5 /lpf (RARE); KETONE, URINE NEG (NEG); NITRITE,URINE NEG (NEG); SQUAMOUS EPITHELIAL CELL URINE 1 /hpf (0-5); URINE COLOR YELLOW (YELLW/STRAW); URINE LEUKOCYTE ESTERASE LARGE (NEG)
[2017-08-03 18:15] LABS: INTERNATIONAL NORMALIZED RATIO 2.8 RATIO; PROTHROMBIN TIME - PATIENT 28.5 SEC (9.8-11.6)
[2017-08-03 18:20] LABS: ALBUMIN 2.6 GM/DL (3.4-5.0); AST (GOT) 67 U/L (15-37); BLOOD UREA NITROGEN 41 MG/DL (7-18); CHLORIDE 107 MEQ/L (98-107); CREATININE 1.66 MG/DL (0.50-1.00); GLOMERULAR FILTRATION RATE 30 ML/MIN (>89); GLUCOSE,RANDOM 82 MG/DL (74-106); SODIUM (NA) 139 MEQ/L (136-145)
[2017-08-03 18:27] LABS: ALKALINE PHOSPHATASE 137 U/L (45-117); ALT (GPT) 37 U/L (10-53); TOTAL PROTEIN 9.3 GM/DL (6.4-8.2); TROPONIN I 0.06 NG/ML (0.02-0.05)
[2017-08-03] MEDS ORDERED: CLINDAMYCIN INJ 900 MG in SODIUM CHLORIDE 0.9% INJ 100 ML IV STA (18:43)
--- NOTE | 2017-08-03 18:56 | PD ---
HPI . Shortness of breath Chief Complaint: Respiratory Distress Time Seen by Provider: 16:35 Travel History International Travel<30 days: No Contact w/Intl Traveler<30days: No Traveled to known affect area: No History of Present Illness HPI This patient presents to us from a [facility] with the chief complaint of respiratory difficulty. Onset was today. She is also complaining with some chest discomfort. She denies productive cough. Her symptoms are moderate to severe with no exacerbating factors. 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 Her MAR from the [facility] indicates that she is supposed to be getting daptomycin. According to the MAR, that will start on August 05. The patient is lucid. She tells me that she wants to be a full code. 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 PFSH Past Medical History Anemia: Yes Asthma: Yes Blood Disorders: Yes (seeing a deck builder) Depression: Yes Heart Rhythm Problems: Yes (AFIB) Cancer: No Cardiovascular Problems: Yes High Cholesterol: No Chest Pain: No Congestive Heart Failure: Yes Coronary Artery Disease: Yes Diminished Hearing: No Endocrine: No Gastrointestinal Disorders: Yes GERD: Yes Genitourinary: No Hypertension: No Immune Disorder: No Implanted Vascular Access Dvce: Yes Musculoskeletal: Yes Neurologic: No Psychiatric: No Reproductive: No Respiratory: No Menopausal: Yes Past Surgical History Abdominal Surgery: Yes AICD: No Appendectomy: Yes Arteriovenous Shunt: No Body Medical Devices: MEDAPORT Cardiac Surgery: No Ear Surgery: No Endocrine Surgery: No Eye Surgery: No Genitourinary Surgery: No Gynecologic Surgery: Yes (TOTAL HYSTERECTOMY) Hysterectomy: Yes Insulin Pump: No Joint Replacement: No Oral Surgery: No Pacemaker: No Thoracic Surgery: No Tonsillectomy: Yes Other Surgery: Yes (SKIN GRAFTS, ABDOMINAL SURGERY, BACK SURGERY) Social History Alcohol Use: No Tobacco Use: No Substance Use: No Allergies-Medications (Allergen,Severity, Reaction): Coded Allergies: albuterol (Verified Allergy, Unknown, 08/03/17) gabapentin (Verified Allergy, Unknown, 08/03/17) ipratropium (Verified Allergy, Unknown, 08/03/17) iron (Verified Allergy, Unknown, 08/03/17) penicillin G (Unverified Allergy, Unknown, 11/16/16) prochlorperazine (Unverified Allergy, Unknown, 11/16/16) vancomycin (Verified Allergy, Unknown, 08/03/17) *MDRO Multi-Drug Resistant Organism (Verified Adverse Reaction, Unknown, ) MRSA (BACK WOUND)-09/17/2016 Reported Meds & Prescriptions Reported Meds & Active Scripts Active Reported Warfarin 2.5 Mg Tab 2.5 Mg PO EVERY OTHER DAY Give alternating dose of 2mg/2.5mg one time a day Warfarin 2 Mg Tab 2 Mg PO EVERY OTHER DAY Give alternating dose of 2mg/2.5mg one time a day Sodium Bicarbonate 650 Mg Tab 650 Mg PO TIDPC Sennosides 8.6 Mg Tab 17.2 Mg PO DAILY Saline Flush (IV Flush) 0.9 % Inj 10 Ml IV FLUSH Q8HR Nitroglycerin SL (Nitroglycerin) 0.4 Mg Subl 0.4 Mg SL DIRECTED PRN ONE TABLET UNDER THE TONGUE NEEDED FOR CHEST PAIN, MAY REPEAT EVERY FIVE MINUTES FOR A TOTAL OF 3 DOSES OR CALL 911 IF NO RELIEF Morphine ER (Morphine Sulfate) 15 Mg Tab 15 Mg PO Q12HR Morphine IR (Morphine Sulfate) 15 Mg Tab 15 Mg PO Q4H PRN Metoprolol Succinate ER 24 HR (Metoprolol Succinate) 50 Mg Tab 50 Mg PO DAILY Lisinopril 2.5 Mg Tab 2.5 Mg PO DAILY Fluticasone Nasal [place] 50 Mcg/Act Naspr 1 [place] EACH NARE Q12HR 50 mcg/spray Duoneb (Ipratropium-Albuterol Neb) 0.5-2.5 Mg/3 Ml Neb 3 Ml NEB TID 7 Days Duoneb (Ipratropium-Albuterol Neb) 0.5-2.5 Mg/3 Ml Neb 3 Ml NEB Q6HR PRN Daptomycin Inj (Daptomycin) 500 Mg Vial 320 Mg IV EVERY 2 DAYS 14 Days Give one time a day every 2 days Flexeril (Cyclobenzaprine HCl) 10 Mg Tab 10 Mg PO Q8HR PRN Cyanocobalamin Inj (Cyanocobalamin) 1,000 Mcg/Ml Inj 1,000 Mcg IM MONTHLY Isosorbide Dinitrate 30 Mg Tab 30 Mg PO DAILY Zinc Sulfate 220 Mg Tab 220 Mg PO DAILY C 500 (Ascorbic Acid) 500 Mg Tab 500 Mg PO DAILY Milk of Magnesia Liq (Magnesium Hydroxide) 400 Mg/5 Ml Susp 30 Ml PO HS PRN Enema Disposable (Sodium Phosphates) 1 Laverne Laverne 1 Applic RECTAL IN THE AM PRN Dulcolax Supp (Bisacodyl) 10 Mg Supp 10 Mg RECTAL IN THE AM PRN Citroma Liq (Magnesium Citrate) 300 Ml Liq 300 Ml PO IN THE AM PRN Famotidine 20 Mg Tab 20 Mg PO BID Review of Systems Except as stated in HPI: all other systems reviewed are Neg General / Constitutional: No: Fever, Chills Cardiovascular: Positive: Chest Pain or Discomfort Respiratory: Positive: Shortness of Breath Neurologic: Positive: Weakness Physical Exam Narrative GENERAL: This patient is lucid. She looks very ill. She is sitting leaning to her right side with her neck flexed. SKIN: Pale and diaphoretic. HEAD: Normocephalic. Atraumatic. EYES: Pupils equal and round. No scleral icterus. No injection or drainage. ENT: No nasal bleeding or discharge. Mucous membranes pale. NECK: Trachea midline. Full range of motion without pain.. CARDIOVASCULAR: Rapid rate at about 150 with an irregular rhythm. RESPIRATORY: She is very tachypneic. Her sats on oxygen or in the upper 90s. Her lungs sound clear anteriorly. GASTROINTESTINAL: Abdomen soft. Nontender. Bowel sounds present. Nondistended. : Simpson catheter is in place. MUSCULOSKELETAL: KAY drain coming from the thoracic spine. It is draining purulent material. NEUROLOGICAL: Awake and alert. No obvious cranial nerve deficits. Motor grossly within normal limits. Normal speech. PSYCHIATRIC: Appropriate mood and affect; insight and judgment normal. Data Data Last Documented VS Vital Signs Date Time Temp Pulse Resp B/P (MAP) Pulse Ox O2 Delivery O2 Flow Rate FiO2 08/03/17 18:56 144 53 146/101 (116) 96 Nasal Cannula 2.00 08/03/17 16:31 100.9 Orders Orders Sepsis Workup Initiated (08/03/17 ) Complete Blood Count With Diff (08/03/17 16:35) Comprehensive Metabolic Panel (08/03/17 16:35) Lactic Acid Sepsis Protocol (08/03/17 16:35) Troponin I (08/03/17 16:35) Urinalysis - C+S If Indicated (08/03/17 16:35) Blood Culture (08/03/17 16:35) Chest, Single Ap (08/03/17 16:35) Ecg Monitoring (08/03/17 16:35) Iv Access Insert/Monitor (08/03/17 16:35) Oximetry (08/03/17 16:35) Oxygen Administration (08/03/17 16:35) Urinary Catheter Insert/Apply (08/03/17 16:35) Sodium Chlor 0.9% 1000 Ml Inj (Ns 1000 M (08/03/17 16:45) Acetaminophen Supp (Tylenol Supp) (08/03/17 16:45) Metoprolol Tartrate Inj (Lopressor Inj) (08/03/17 16:45) Prothrombin Time / Inr (Pt) (08/03/17 16:48) Electrocardiogram (08/03/17 16:33) Red Blood Cells (Rbc) (08/03/17 17:55) Blood Product Administration (08/03/17 17:55) Sodium Chlor 0.9% 250 Ml Inj (Ns 250 Ml (08/03/17 18:00) Type And Screen (08/03/17 17:55) Arterial Blood Gas (Abg) (08/03/17 ) B-Type Natriuretic Peptide (08/03/17 18:10) Sodium Chlor 0.9% 1000 Ml Inj (Ns 1000 M (08/03/17 18:15) Sodium Chlor 0.9% 1000 Ml Inj (Ns 1000 M (08/03/17 18:15) Urine Culture (08/03/17 15:55) Sodium Chlor 0.9% 1000 Ml Inj (Ns 1000 M (08/03/17 18:45) Clindamycin Inj (Cleocin Inj) (08/03/17 18:43) Ceftriaxone Inj (Rocephin Inj) (08/03/17 19:00) Labs Laboratory Tests Test 08/03/17 15:55 08/03/17 16:50 08/03/17 17:02 08/03/17 18:00 Urine Color YELLOW Urine Turbidity HAZY Urine pH 6.0 Urine Specific [place] 1.020 Urine Protein 100 mg/dL Urine Glucose (UA) NEG mg/dL Urine Ketones NEG mg/dL Urine Occult Blood MOD Urine Nitrite NEG Urine Bilirubin NEG Urine Urobilinogen LESS THAN 2.0 MG/DL Urine Leukocyte Esterase LARGE Urine RBC 39 /hpf Urine WBC 129 /hpf Urine Squamous Epithelial Cells 1 /hpf Urine Bacteria OCC /hpf Urine Hyaline Casts 5 /lpf Urine Yeast (Budding) MOD Microscopic Urinalysis Comment CATH-CULTURE IND White Blood Count 9.8 TH/MM3 Red Blood Count 3.58 MIL/MM3 Hemoglobin 11.6 GM/DL Hematocrit 35.8 % Mean Corpuscular Volume 100.1 FL Mean Corpuscular Hemoglobin 32.5 PG Mean Corpuscular Hemoglobin Concent 32.4 % Red Cell Distribution Width 17.9 % Platelet Count 208 TH/MM3 Mean Platelet Volume 9.0 FL Neutrophils (%) (Auto) 86.6 % Lymphocytes (%) (Auto) 6.1 % Monocytes (%) (Auto) 7.0 % Eosinophils (%) (Auto) 0.0 % Basophils (%) (Auto) 0.3 % Neutrophils # (Auto) 8.5 TH/MM3 Lymphocytes # (Auto) 0.6 TH/MM3 Monocytes # (Auto) 0.7 TH/MM3 Eosinophils # (Auto) 0.0 TH/MM3 Basophils # (Auto) 0.0 TH/MM3 CBC Comment DIFF FINAL Differential Comment Blood Urea Nitrogen 41 MG/DL Creatinine 1.66 MG/DL Random Glucose 82 MG/DL Total Protein 9.3 GM/DL Albumin 2.6 GM/DL Calcium Level 9.0 MG/DL Alkaline Phosphatase 137 U/L Aspartate Amino Transf (AST/SGOT) 67 U/L Alanine Aminotransferase (ALT/SGPT) 37 U/L Total Bilirubin 1.0 MG/DL Sodium Level 139 MEQ/L Potassium Level 5.8 MEQ/L Chloride Level 107 MEQ/L Carbon Dioxide Level 16.0 MEQ/L Anion Gap 16 MEQ/L Estimat Glomerular Filtration Rate 30 ML/MIN Lactic Acid Level 9.4 mmol/L Troponin I 0.06 NG/ML Prothrombin Time 28.5 SEC Prothromb Time International Ratio 2.8 RATIO Blood Gas Puncture Site LT RADIAL Blood Gas Patient Temperature 98.6 Blood Gas HCO3 11 mmol/L Blood Gas Base Excess -15.5 mmol/L Blood Gas Oxygen Saturation 95 % Arterial Blood pH 7.22 Arterial Blood Partial Pressure CO2 27 mmHg Arterial Blood Partial Pressure O2 102 mmHG Arterial Blood Oxygen Content 15.2 Vol % Arterial Blood Carboxyhemoglobin 0.8 % Arterial Blood Methemoglobin 0.5 % Blood Gas Hemoglobin 11.3 G/DL Oxygen Delivery Device NASAL CANNULA Blood Gas Liter Flow 2 L/M MDM Medical Decision Making Medical Screen Exam Complete: Yes Emergency Medical Condition: Yes Medical Record Reviewed: Yes (Unfortunately, this patient's recent medical care has been at an outside hospital. We are attempting to obtain those records. Per our records, she has a history of hypertension, atrial fibrillation, previous non-STEMI, chronic kidney disease and diastolic CHF.) Interpretation(s) EKG shows atrial fibrillation with a rate of 140. Differential Diagnosis Differential diagnosis of dyspnea includes but is not limited to congestive heart failure, pneumonia, wheezing, pneumothorax, pulmonary embolism Narrative Course This patient presents with a chief complaint of dyspnea. She has a history of atrial fibrillation and appears to be in A. fib with RVR. The patient has a PICC line in place from her recent hospitalization. It is functional and has been used initially for treatment. The nursing staff has attempted to obtain a second peripheral IV without success. Septic workup was ordered. ABG Test 08/03/17 18:00 Arterial Blood Carboxyhemoglobin 0.8 % Arterial Blood Methemoglobin 0.5 % Arterial Blood Oxygen Content 15.2 Vol % Arterial Blood Partial Pressure CO2 27 mmHg L Arterial Blood Partial Pressure O2 102 mmHG Arterial Blood pH 7.22 *L Blood Gas Base Excess -15.5 mmol/L L Blood Gas HCO3 11 mmol/L *L Blood Gas Hemoglobin 11.3 G/DL L Blood Gas Liter Flow 2 L/M Blood Gas Oxygen Saturation 95 % Oxygen Delivery Device NASAL CANNULA CBC & BMP Diagram 08/03/17 16:50 Total Protein 9.3 H, Albumin 2.6 L, Calcium Level 9.0, Alkaline Phosphatase 137 H, Aspartate Amino Transf (AST/SGOT) 67 H, Alanine Aminotransferase (ALT/SGPT) 37, Total Bilirubin 1.0 Troponin 0 0.06 Lactic acid 9.4 INR 2.8. UA has large leukocyte esterase, 39 RBC, 129 WBC, occasional bacteria and moderate yeast. I have ordered clindamycin for MRSA. I do not see cephalosporins on her allergy list. I will order Rocephin to cover UTI. Critical Care Narrative Aggregate critical care time was 60 minutes. Time to perform other separately billable procedures was not included in the critical care time. My time did not include minutes spent treating any other patients simultaneously or on activities that did not directly contribute to the patient's treatment. The services I provided to this patient were to treat and/or prevent clinically significant deterioration due to sepsis, A. fib with RVR. I provided critical care services requiring my management, as noted below: Chart data review, documentation time, medication orders and management, vital sign assessments/reviewing monitor data, ordering and reviewing lab tests, ordering and interpreting/reviewing x-rays and diagnostic studies, care of the patient and discussion of the patient with the admitting physicians Procedures Procedure Narrative CENTRAL VENOUS LINE: The site was prepped with ChloraPrep and sterilely draped. The deep vein was cannulated using normal Seldinger technique. A triple lumen central line was placed in the right femoral vein site and secured with simple interrupted suture. The site was sterilely dressed. The patient tolerated the procedure well. The procedure was assisted by ultrasound which was done by 1 of the nurses. Physician Communication Physician Communication Dr. South Diagnosis Primary Impression: Sepsis Qualified Codes: A41.02 - Sepsis due to methicillin resistant Staphylococcus aureus Additional Impressions: Atrial fibrillation with RVR Urinary tract infection Qualified Codes: N39.0 - Urinary tract infection, site not specified MRSA (methicillin resistant Staphylococcus aureus) septicemia Hyperkalemia Admitting Information Admitting Physician Requests: Admit Condition: Daisy Angulo MD August 03, 2017 18:56
[2017-08-03] MEDS ORDERED: cefTRIAXone INJ 1,000 MG in SODIUM CHLORIDE 0.9% INJ 100 ML IV ONE (19:00)
[2017-08-03] MEDS ORDERED: MORPHINE SULFATE 15 MG TAB PO PRN (19:45)
[2017-08-03] MEDS: MORPHINE SULFATE 15 MG CONTROLLED RELEASE TAB PO SCH (19:51)
[2017-08-03] MEDS ORDERED: SODIUM BICARBONATE 8.4% INJ 150 MEQ in DEXTROSE 5% IN WATE 1000ML INJ 1,000 ML IV SCH ×2 (20:00)
[2017-08-03] MEDS ORDERED: SENNOSIDES 8.6 MG TAB PO PRN (20:00)
[2017-08-03] MEDS ORDERED: TEMAZEPAM 15 MG CAP PO PRN (20:00)
[2017-08-03] MEDS ORDERED: MAGNESIUM HYDROXIDE SUSP 30 ML CUP PO PRN (20:00)
[2017-08-03] MEDS ORDERED: LACTULOSE SYRUP 20 GM/30 ML CUP PO PRN (20:00)
[2017-08-03] MEDS ORDERED: CHLORHEXIDINE GLUCONATE 2 % 1 PACK (2 CLOTHS) TOP PRN (20:00)
[2017-08-03] MEDS ORDERED: NURSING INFORMATION XX SCH (20:00)
[2017-08-03] MEDS ORDERED: RESP: ALBUTEROL 2.5 MG/IPRATROPIUM 0.5 MG NEB (PRN) INH (20:00)
[2017-08-03] MEDS ORDERED: ONDANSETRON HCL 4 MG/2 ML VIAL IV PUSH PRN (20:00)
[2017-08-03] MEDS ORDERED: ACETAMINOPHEN 325 MG TAB PO PRN (20:00)
[2017-08-03] MEDS ORDERED: BISACODYL 10 MG SUPP RECTAL PRN (20:00)
[2017-08-03] MEDS: DOCUSATE SODIUM 50 MG/SENNA 8.6 MG TAB PO SCH (21:00)
[2017-08-03] MEDS ORDERED: DAPTOMYCIN IV SCH (22:00)
[2017-08-03] MEDS ORDERED: SODIUM CHLORIDE 0.9% IV SCH (22:00)
[2017-08-03] MEDS ORDERED: RESP: ALBUTEROL 2.5 MG/IPRATROPIUM 0.5 MG NEB (SCH) INH (22:00)
[2017-08-03] MEDS: SODIUM CHLOR 0.9% 1000 ML INJ 1,000 ML IV SCH (22:45)
[2017-08-03] MEDS: FLUTICASONE PROPIONATE 50 MCG/ACT 16 GM NASAL SPRAY EACH NARE SCH (22:46)
[2017-08-03] MEDS: SODIUM CHLORIDE 0.9% FLUSH 10 ML FLUSH IV FLUSH SCH ×2 (22:46)
[2017-08-03] MEDS: FAMOTIDINE 20 MG/2 ML VIAL IV PUSH SCH (22:46)
[2017-08-03] MEDS: HEPARIN SODIUM - SQ 10,000 UNITS/ML VIAL SQ SCH (22:48)
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
[2017-08-04] VITALS (22 sets, daily range): BP systolic 90–133; BP diastolic 58–105; PULSE 97–118; RESP 20–39; TEMP 97.5–98.6; O2SAT 90–100
[2017-08-04] MEDS: MORPHINE SULFATE 4 MG/ML INJ IV PUSH PRN ×2 (00:33→05:14)
[2017-08-04] MEDS: SODIUM CHLOR 0.9% 1000 ML INJ 1,000 ML IV SCH ×5 (01:13→19:50)
[2017-08-04] MEDS: CHLORHEXIDINE GLUCONATE 2 % 1 PACK (2 CLOTHS) TOP SCH (05:13)
[2017-08-04] MEDS: HEPARIN SODIUM - SQ 10,000 UNITS/ML VIAL SQ SCH (05:13)
[2017-08-04] MEDS: SODIUM CHLORIDE 0.9% FLUSH 10 ML FLUSH IV FLUSH SCH ×5 (05:14→21:39)
[2017-08-04 06:14] LABS: AUTOMATED NEUTROPHIL # 12.9 TH/MM3 (1.8-7.7); HEMATOCRIT 33.3 % (35.0-46.0); HEMOGLOBIN 10.5 GM/DL (11.6-15.3); LYMPH % 2.5 % (9.0-44.0); LYMPHOCYTE # 0.4 TH/MM3 (1.0-4.8); MEAN CELL VOLUME 103.7 FL (80.0-100.0); MEAN CORPUSCULAR HEMOGLOBIN 32.7 PG (27.0-34.0); MEAN CORPUSCULAR HGB CONC 31.6 % (32.0-36.0); MEAN PLATELET VOLUME 8.5 FL (7.0-11.0); MONO % 7.1 % (0.0-8.0); NEUT % 90.4 % (16.0-70.0); PLATELET COUNT 116 TH/MM3 (150-450); RED BLOOD COUNT 3.21 MIL/MM3 (4.00-5.30); RED CELL DISTRIBUTION WIDTH 18.1 % (11.6-17.2); WHITE BLOOD COUNT 14.3 TH/MM3 (4.0-11.0)
[2017-08-04 06:28] LABS: PROTHROMBIN TIME - PATIENT 63.3 SEC (9.8-11.6)
[2017-08-04 06:42] LABS: INTERNATIONAL NORMALIZED RATIO 6.3 RATIO
[2017-08-04 07:04] LABS: ALBUMIN 1.9 GM/DL (3.4-5.0); CALCIUM 7.1 MG/DL (8.5-10.1); CREATININE 1.63 MG/DL (0.50-1.00); MAGNESIUM 1.5 MG/DL (1.5-2.5); PHOSPHORUS 6.3 MG/DL (2.5-4.9); TOTAL BILIRUBIN ADULT 1.3 MG/DL (0.2-1.0); TOTAL PROTEIN 6.8 GM/DL (6.4-8.2); TROPONIN I 0.17 NG/ML (0.02-0.05)
[2017-08-04 07:39] LABS: CALCIUM-PROTEIN CORRECTED 7.3 MG/DL (8.5-10.1)
[2017-08-04] MEDS: METOPROLOL TARTRATE 5 MG/5 ML VIAL IV PUSH PRN ×3 (07:50→17:58)
[2017-08-04] MEDS: ZINC SULFATE 220 MG CAP PO SCH (07:56)
[2017-08-04] MEDS: DOCUSATE SODIUM 50 MG/SENNA 8.6 MG TAB PO SCH ×2 (07:57→21:38)
[2017-08-04] MEDS: ASCORBIC ACID 500 MG TAB PO SCH (07:57)
[2017-08-04] MEDS: FAMOTIDINE 20 MG/2 ML VIAL IV PUSH SCH ×2 (07:57→21:38)
[2017-08-04] MEDS: MORPHINE SULFATE 15 MG CONTROLLED RELEASE TAB PO SCH (07:57)
[2017-08-04] MEDS: FLUTICASONE PROPIONATE 50 MCG/ACT 16 GM NASAL SPRAY EACH NARE SCH ×2 (07:58→21:38)
[2017-08-04] MEDS ORDERED: DEXTROSE 50% IN WATER 50 ML SYRINGE ONE (08:45)
[2017-08-04 09:00] LABS: BANDS 4 % (0-6); LYMPHOCYTES 1 % (9-44); MONOCYTES 7 % (0-8); MYELOCYTES 1 % (0-0); NEUTROPHIL # MANUAL DIFF 13.2 TH/MM3 (1.8-7.7); POLYS (SEG NEUTROPHILS) 87 % (16-70)
[2017-08-04] MEDS ORDERED: DAPTOmycin 500 MG VIAL IV SCH (09:00)
[2017-08-04] MEDS ORDERED: SODIUM BICARBONATE 8.4% INJ 50 ML ONE (09:08)
[2017-08-04] MEDS ORDERED: SODIUM BICARBONATE 8.4% INJ 50 MEQ/50 ML SYR IV PUSH ONE (09:15)
[2017-08-04] MEDS ORDERED: DIGOXIN 0.5 MG/2 ML VIAL IV PUSH ONE (09:30)
[2017-08-04] MEDS: SODIUM BICARBONATE 8.4% INJ 150 MEQ in DEXTROSE 5% IN WATE 1000ML INJ 850 ML IV SCH ×4 (10:08→23:15)
--- NOTE | 2017-08-04 10:22 | HHI.CCPN ---
Subjective Remarks/Hospital Course 76-year-old female [facility] the [facility] presents with complaints of respiratory difficulty. Onset was today. She is also complaining with some chest discomfort. She denies productive cough. Her symptoms are moderate to severe with no exacerbating factors. This patient was reportedly just discharged from [facility] with discitis secondary to MRSA. Subjective: 08/04: Afebrile. Early this a.m. patient still having respiratory difficulty noted metabolic acidosis with a bicarb level 13, sodium bicarbonate infusion continues. She noticed to have respiratory distress ABGs performed. Impending intubation 7.10. Patient noted to have KAY drain emanating from back with dressing taken down no area redness yellow fluid and KAY drain sent for wound culture analysis. Upon further investigation patient's brother at bedside patient had lumbar hardware removed from [facility] in [place] approximately 6 weeks ago secondary to hardware eroding through the back and could be visualized on site. 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 Gottlieb cultures are pending. Attempts at medical record release forms from [facility] are pending. Patient previously last week at [facility] for acute kidney injury/urinary tract infection, attempting to obtain medical record. Patient was discharged approximately 2-3 days ago per report. This a.m. patient went into A. fib RVR with a heart rate in the 150s patient was given metoprolol 2 doses heart rate 112, patient is known to have chronic atrial fibrillation previously on Cardizem and digoxin 0.125 IV 1 dose Cardizem reinitiated. Discussion with patient regarding intubation and patient' s brother at bedside patient desires aggressive measures be undertaken patient requests intubation if needed and to remain a full code. Noted open areas skin wound areas on the lower extremities well-healed skin graft site left thigh wound care has been consulted. Palliative care also has been consulted to define goals of care. Objective Vital Signs Date Time Temp Pulse Resp B/P (MAP) Pulse Ox O2 Delivery O2 Flow Rate FiO2 08/04/17 09:11 30 08/04/17 09:05 100 50 08/04/17 08:02 Nasal Cannula 2.00 08/04/17 06:00 112 106/58 (74) 08/04/17 04:00 97.6 Intake and Output 08/04/17 08/04/17 08/05/17 08:00 16:00 00:00 Intake Total 3050 ml Output Total 265 ml Balance 2785 ml Result Diagram: 08/04/17 0600 08/04/17 0600 Other Results Laboratory Tests Test 08/03/17 18:00 08/03/17 21:23 08/04/17 08:35 Blood Gas Puncture Site LT RADIAL LT RADIAL LT RADIAL Blood Gas Patient Temperature 98.6 98.6 98.6 Blood Gas HCO3 11 mmol/L (22-26) 10 mmol/L (22-26) Blood Gas Base Excess -15.5 mmol/L (-2-2) -17.6 mmol/L (-2-2) Blood Gas Oxygen Saturation 95 % (90-100) 92 % (90-100) Arterial Blood pH 7.22 (7.380-7.420) 7.14 (7.380-7.420) Arterial Blood Partial Pressure CO2 27 mmHg (38-42) 30 mmHg (38-42) Arterial Blood Partial Pressure O2 102 mmHG (61-120) 95 mmHg (61-120) Arterial Blood Oxygen Content 15.2 Vol % (12.0-20.0) 14.3 Vol % (12.0-20.0) Arterial Blood Carboxyhemoglobin 0.8 % (0-4) 0.6 % (0-4) Arterial Blood Methemoglobin 0.5 % (0-2) 1.4 % (0-2) Blood Gas Hemoglobin 11.3 G/DL (12.0-16.0) 11.0 G/DL (12.0-16.0) Oxygen Delivery Device NASAL CANNULA NASAL CANNULA NASAL CANNULA Blood Gas Liter Flow 2 L/M 2 L/M 4 L/M Venous Blood pH 7.11 (7.360-7.400) Venous Blood Partial Pressure CO2 46 mmHg (44-48) Venous Blood Partial Pressure O2 22 mmHg (35-40) Venous Blood HCO3 14 mmol/L (22-26) Venous Blood Oxygen Saturation 24 % (70-76) Venous Blood Oxygen Content 3.7 Vol % (9.0-17.0) Venous Blood Base Excess -13.9 mmol/L (-2-2) Imaging Last 24 hours Impressions Chest X-Ray 08/03/17 2676 Signed Impressions: Service Date/Time: Thursday, August 03, 2017 17:18 - CONCLUSION: Limited study. However the lungs are grossly clear. Moderate cardiomegaly. Brown Smith MD Objective Remarks GENERAL: Elderly ill appearing female in moderate distress. Pale. She is sitting leaning to her right side with her neck flexed. SKIN: Pale and diaphoretic. HEAD: Normocephalic. Atraumatic. EYES: Pupils equal and round. No scleral icterus. No injection or drainage. ENT: No nasal bleeding or discharge. Mucous membranes pale. NECK: Trachea midline. Full range of motion without pain.. CARDIOVASCULAR: Rapid rate at about 150 with an irregular rhythm. RESPIRATORY: She is very tachypneic. Her sats on oxygen or in the upper 90s. Her lungs sound clear anteriorly. GASTROINTESTINAL: Abdomen soft. Nontender. Bowel sounds present. Nondistended. : Simpson catheter is in place. MUSCULOSKELETAL: KAY drain coming from the thoracic spine. It is draining purulent material. NEUROLOGICAL: Awake and alert. No obvious cranial nerve deficits. Motor grossly within normal limits. Normal speech. Urinary Catheter: Yes Simpson insert reason: Measure Accurate Output Date of Insertion: August 04, 2017 A/P Problem List: (1) Afib ICD Code: I48.91 - Unspecified atrial fibrillation Status: Acute (2) EMIR (acute kidney injury) ICD Code: N17.9 - Acute kidney failure, unspecified Status: Acute (3) CKD (chronic kidney disease) stage 4, GFR 15-29 ml/min ICD Code: N18.4 - Chronic kidney disease, stage 4 (severe) Status: Acute (4) Renal insufficiency ICD Code: N28.9 - Disorder of kidney and ureter, unspecified Status: Acute (5) Chronic pain ICD Code: G89.29 - Other chronic pain Status: Acute (6) Atrial fibrillation with RVR ICD Code: I48.91 - Unspecified atrial fibrillation Status: Acute (7) Hyperkalemia ICD Code: E87.5 - Hyperkalemia Status: Acute (8) Severe sepsis ICD Code: A41.9 - Sepsis, unspecified organism; R65.20 - Severe sepsis without septic shock (9) Metabolic acidosis ICD Code: E87.2 - Acidosis Status: Acute (10) Hypoglycemia ICD Code: E16.2 - Hypoglycemia, unspecified Status: Acute (11) Cardiomegaly ICD Code: I51.7 - Cardiomegaly Status: Acute Assessment and Plan Plan by systems: Neurologic: Chronic pain syndrome Status post removal of spinal hardware 06/19 Neuro checks per ICU protein Postintubation daily sedation vacation Avoid sedative type medication Fentanyl infusion to maintain ventilator synchrony Acetaminophen 650 mg every 6 hours as needed for temperature greater than 101.5 Respiratory: Acute hypercapnic respiratory failure COPD ABGs and chest x-rays as clinically indicated ABG pH 7.10 Ventilator bundle Schedule duo nebs every 6 hours, and every 2 hours as needed Repeat ABG Continue Fluticasone Cardiovascular: A. fib RVR History of hypertension Congestive heart failure Chronic atrial fibrillation Metoprolol 5 mg IV PRN Digoxin 0.125 mg IV 1 dose Begin Cardizem 60 mg every 8 hours, since home medicines include Cardizem CD Obtain echo-rule out endocarditis BNP 4339-continue to trend Initial troponin 0.7 continue to trend-possible elevation secondary to infection , and renal insufficiency Patient normally on Coumadin therapy INR initial noted to be 6.1-no active signs of bleeding Renal: Renal insufficiency Maintain Simpson -- Strict I/Os FEN/GI: CKD stage IV Acute on chronic kidney injury Probably UTI Lactic acidemia Severe metabolic acidosis Monitor BMP Sodium chloride 84 cc/hr Continue sodium bicarbonate infusion/ D5W Bolus 50 mEq of sodium bicarb IV push Follow-up UTI begin ceftriaxone Maintain n.p.o. status Insert OGT to LIWS Heme/ID: Anemia of chronic disease MRSA Discitis Monitor CBC ID consulted appreciated Follow-up blood and urine cultures Begin Rocephin Supratherapeutic INR-patient is on Coumadin, INR noted to be 6.1 Daptomycin for MRSA bacteremia on hold-need renal adjustment defer to ID to continue or change to different medication Transfuse for hemoglobin less than 7.0 Medical records release obtained for medical records at [facility] and [facility] Obtain CT abdomen and pelvis and lumbar spine Obtain wound culture and Gram stain, fungal culture from KAY drain Monitor lactate levels until cleared Endocrine: Hypoglycemia Glucose monitoring per ICU protocol Glucose 58-1 amp D50 IV this a.m. -- SSI Prophylaxis: GI Prophylaxis Famotidine BID DVT Prophylaxis -- SCDs Patient noted to have supratherapeutic INR Lines: PICC line in situ left forearm good blood return, peripheral IV x1. Central line if indicated Dispo: my billing statement This patient remains critically ill with one or more organ systems which are or may become a threat to life. I have spent in excess of 49 minutes discontinuously in the care and management of this patient. This time is exclusive of procedures, and includes, but is not limited to, evaluation of the patient, review of the medical record, discussions with family, consultants, nursing staff, or respiratory therapy, and documentation in the medical record. Physician Celia Malik MD August 04, 2017 10:22
[2017-08-04] MEDS ORDERED: PROPOFOL 500 MG/50 ML INJ 50 ML ONE (10:30)
[2017-08-04] MEDS ORDERED: PROPOFOL 200 MG/20 ML AMP IV ONE (10:30)
[2017-08-04] MEDS ORDERED: ROCURONIUM INJ 50 MG/5 ML VIAL ONE (10:30)
[2017-08-04] MEDS ORDERED: ROCURONIUM INJ 50 MG/5 ML VIAL IV ONE (10:30)
[2017-08-04] MEDS: DILTIAZEM HCL 60 MG TAB PO SCH ×2 (10:45→21:38)
[2017-08-04] MEDS ORDERED: DAPTOmycin INJ 500 MG in SODIUM CHLORIDE 0.9% INJ 100 ML IV SCH (11:00)
--- NOTE | 2017-08-04 11:15 | PD.PROCEDR ---
Procedure Note Procedure Endotracheal Intubation Diagnosis: Acute hypercapnic respiratory failure Indications: Acute hypercapnic respiratory Consent: Emergent patient and brother notified Anesthesia: See MAR Description of the Procedure: The patient was positioned in the sniffing position. Pre-oxygenation was performed using 100% BVM. Anesthesia was induced via rapid sequence. A glidescope 4 was used for laryngoscopy and a Grade 1view was obtained. A [ ] cuffed endotracheal tube was inserted atraumatically through the vocal cords. Confirmation of correct endotracheal tube placement was made by equal and bilateral breath sounds and colorimetric CO2 detection. The endotracheal tube was secured at 20.5 cm at the teeth. There were no immediate complications noted. The patient remained hemodynamically stable throughout the procedure. A chest x-ray has been ordered. I personally performed the procedure. Celia Sotelo MD August 04, 2017 11:15
--- NOTE | 2017-08-04 11:18 | PD.CONS ---
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 TBD just prior to intubation patient agreed to mechanical ventilation if there are no other options for her respiratory issues. Further discussion pending with patient planned meeting tomorrow 08/05/17 around 9:30 AM. * CODE STATUS:Full code * SYMPTOMS: --dyspnea-admitted for respiratory distress. Worsening respiratory status, metabolic acidosis, intubated this morning just prior to my evaluation. She is currently breathing comfortably on mechanical vent. She is on sedation no asynchrony observed. Post intubation CXR pending. Initial CXR limited study lungs grossly clear. --Pain-patient appears comfortable at time of exam, currently unable to report pain however potential sources would include: Bedbound status, recent invasive procedure intubation, central line, multiple recent hospitalizations and surgical procedures, KAY to back still in place. She is noted to be on chronic morphine long-acting and short-acting prior to admission and has underwent multiple procedures and hospitalizations recently so likely has some underlying chronic pain. She is currently on fentanyl drip 50 mics/hour per critical care appears comfortable. She is chronically on morphine extended release 15 mg every 12 hours, as well as morphine 15 mg prn for breakthrough pain; appears she is not opiate salomón may need additional pain regimen as clinical course goes forward. Will continue to evaluate. * Palliative care will continue to follow during hospital course as condition evolves, to assist patient/decision-maker with understanding of medical conditions, weighing benefits/burdens of treatment options, for clarification of goals of treatment. Additionally will assist with any symptoms of palliative concern . Time Spent Total Floor Time (mins): 40 (Chart review, PE, discussion with critical care, discussion with nursing, discussion with brother on for) Thank you for the opportunity to participate in the care of Ms. Nicolas. Attestation To help prompt me to consider important information that might be impacting today's encounter and assessment, information from prior notes written by myself or my colleagues may have been "brought forward" into today's note. My signature on this note, however, is an attestation that I personally performed the exam, history, and/or decision-making noted today, and, unless otherwise indicated, the interactions with patient, family, and staff as well as the review of records all occurred today. I also attest that the listed assessment and stated plan reflect my best clinical judgment today based on the combination of historical information, prior notes, and today's exam/ interactions. When time spent is documented, it refers only to time spent today by the signer, or if indicated, combined time spent today by collaborating physician/nurse practitioner. Angelica Barajas August 04, 2017 11:18
[2017-08-04] MEDS ORDERED: cefTRIAXone INJ 1,000 MG in SODIUM CHLORIDE 0.9% INJ 100 ML IV SCH (12:00)
--- NOTE | 2017-08-04 12:27 | RADRPT ---
EXAM DATE/TIME: 08/04/2017 11:42 [facility] COMPARISON: CHEST SINGLE AP, August 03, 2017, 17:18. INDICATIONS : Status post intubation respiratory failure. MEDICAL HISTORY : Myocardial infarction. Congestive heart failure. Gastroesophageal reflux disease. coronary artery disease, asthma, hepatitis, MRSA SURGICAL HISTORY : Tonsillectomy. Appendectomy. Hysterectomy. back surgery ENCOUNTER: Initial ACUITY: 1 day PAIN SCORE: Non-responsive. LOCATION: Bilateral chest FINDINGS: Single AP semierect portable view of the chest was obtained and demonstrates interval and sedation en dotracheal tube tip approximately 4 cm above the paulo. Moderate to marked cardiomegaly is again not ed with no perihilar edema. There are no definite confluent infiltrates or effusions. The patient is mildly rotated and tilted. Chronic degenerative changes are again noted in both shoulders. There are overlying cardiac leads. CONCLUSION: 1. Interval intubation. 2. Cardiomegaly with no evidence of pulmonary edema. Epifanio Sweeney MD on August 04, 2017 at 12:25 Board Certified Radiologist. This report was verified electronically.
--- NOTE | 2017-08-04 14:57 | RADRPT ---
EXAM DATE/TIME: 08/04/2017 13:46 [facility] COMPARISON: CT ABDOMEN & PELVIS W/O CONTRAST, September 29, 2016, 19:44. INDICATIONS : Sepsis, renal failure. ORAL CONTRAST: No oral contrast ingested. RADIATION DOSE: 14.01 CTDIvol (mGy) MEDICAL HISTORY : Cardiovascular disease. Gastroesophageal reflux disease. Hepatitis. SURGICAL HISTORY : Appendectomy. Hysterectomy. ENCOUNTER: Initial ACUITY: 2 days PAIN SCALE: Non-responsive LOCATION: lower quadrant TECHNIQUE: Volumetric scanning of the abdomen and pelvis was performed. Using automated exposure control and ad justment of the mA and/or kV according to patient size, radiation dose was kept as low as reasonably achievable to obtain optimal diagnostic quality images. DICOM format image data is available electro nically for review and comparison. FINDINGS: Imaging through the lung bases demonstrate small bilateral pleural effusions and consolidation in the lower lobes. The heart is enlarged. The appearance of the liver, spleen, pancreas, adrenal glands and left kidney is within normal limits . There is a 2 mm nonobstructing stone in the lower pole collecting system on the right. There is no hydronephrosis. The abdominal aorta is normal in caliber. There is no free intraperitoneal air. There is a small amou nt of free fluid in the left upper quadrant. There is a moderate amount of stool throughout the colon suggesting constipation. The loops of small large bowel are otherwise unremarkable. Imaging through the pelvis demonstrate a central venous catheter on the right. There is no free fluid within the pelvis. No iliac or inguinal adenopathy is seen. There is a Simpson catheter within the castillo dder. There are degenerative and postsurgical changes in the lumbar spine. No acute bony abnormality is estela ntified. CONCLUSION: 1. There is stool diffusely throughout the colon suggesting constipation. 2. The solid organs of the abdomen are grossly intact. 3. No free air free fluid seen within the abdomen. No abscess is identified. 4. Small amount of free fluid within the abdomen. 5. Bilateral pleural effusions and consolidation. 6. Cardiomegaly. 7. 2 mm nonobstructing stone in the lower pole collecting system of the right kidney. 8. Anasarca. Mil Toro MD on August 04, 2017 at 14:47 Board Certified Radiologist. This report was verified electronically.
--- NOTE | 2017-08-04 15:20 | RADRPT ---
EXAM DATE/TIME: 08/04/2017 13:46 [facility] COMPARISON: MRI LUMBAR SPINE W & W/O CONTRAST, September 17, 2016, 9:37. INDICATIONS : Recent spinal surgery, now with sepsis. RADIATION DOSE: ; Reconstructed from previous dataset, no dose MEDICAL HISTORY : Cardiovascular disease. Gastroesophageal reflux disease. Hepatitis. SURGICAL HISTORY : Fusion, lumbar. Hysterectomy.Appendectomy. ENCOUNTER: Initial ACUITY: 2 days PAIN SCALE: Non-responsive LOCATION: lower back TECHNIQUE: Volumetric scanning of the lumbar spine was performed. Multiplanar reconstructions in the sagittal, coronal and oblique axial planes were performed. Using automated exposure control and adjustment of the mA and/or kV according to patient size, radiation dose was kept as low as reasonably achievable t o obtain optimal diagnostic quality images. DICOM format image data is available electronically for review and comparison. FINDINGS: 13 mm anterolisthesis of L5 with respect to S1 is similar to prior MRI in September 2016. Anterior plate L4 and L5 there is an anterior screw at S1 without bridging plate. There is bony fusion at L5-S1 ant eriorly. Posterior laminectomy has been performed at L5 and S1; no ventral impression upon the theca l sac. There is prominent soft tissue thickening with low-density at the surgical level measuring up to 2.4 cm in AP dimension. No deformity of the posterior thecal sac. There is diffuse osteopenia. Lucent screw tracts from prior hardware or transpedicular L4. Broad based protrusion of the L3-4 disc flattens the ventral margin of the thecal sac and extends int o the neural foramen bilaterally. Severe bilateral bony neural foraminal stenosis at L5-S1. CONCLUSION: 1. There is low density in the soft tissues at the recent laminectomy site L4-L5 measuring up to 2.4 cm in thickness with out deformity of the posterior thecal sac at the laminectomy site. 2. Stable anterolisthesis at L5-S1 with bony fusion. 3. 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 Maykel Singh MD on August 04, 2017 at 14:57 Board Certified Radiologist. This report was verified electronically.
--- NOTE | 2017-08-04 15:49 | EKG ---
Date Performed: 08/03/2017 Time Performed: 16:33:44 PTAGE: 76 years EKG: The rhythm is most likely atrial fibrillation with a rapid ventricular response. LOW QRS VO LTAGE IN PRECORDIAL LEADS POSSIBLE ANTERIOR MYOCARDIAL INFARCTION ST DEPRESSION, CONSIDER SUBENDOCARD IAL INJURY ABNORMAL ECG PREVIOUS TRACING : 09/30/2016 20.25 Since the prior tracing, there appears to be a ventricular response to the atrial fibrillation. There has been an overall slight increase in the minimal nonspec ific ST-T wave changes. DOCTOR: Leia Toney Interpretating Date/Time 08/04/2017 15:48:26
[2017-08-04] MEDS: RESP: IPRATROPIUM 0.5 MG/2.5 ML NEB NEB SCH ×2 (16:00→19:44)
--- NOTE | 2017-08-04 16:09 | PD.WCN.NOT ---
Wound Consult Description: Received consult from Doctor Celia Sotelo for lower extremities wound management. Communicated with: GOLDY Seo [facility] and Doctor Celia Sotelo Recommendation: 1.Please cleanse open wounds to RLE with normal saline or wound cleanser and pat dry. Apply oil emulsion gauze cut to fit just over open wounds and cover with 4x4 gauze pads, ABD pad, secured with rolled gauze and tape.Change dressing every 2 days or PRN if saturated or dislodged. Additional Information: Patient seen on 5th floor [facility] for evaluation of lower extremity wound management . Patient is laying in bed for wound assessment. Patient is responsive to pain and pressure at this time and is on bipap. Patient BLE is noted open to air LLE is noted with intact, cool, dry and hairless skin. RLE presents with three open wounds. R lateral leg wound is partial thickness and 100% pink measuring ~10cm x ~5cm x ~<0.1. Wound has scant sanguinous drainage that is without odor.Medial R proximal wound presents as partial thickness wound with 100% pink tissue and scant yellow exudate that is dried and without odor.Wound measures 2.1cm x 1cm x ~0.1cm. No active drainage is present. Medial R distal wound presents as partial thickness, 100% pink with yellow dried exudate without odor. Wound measures 2cm x0.8cm x ~0.1cm and no active drainage. Karina Tomlin [facility] August 04, 2017 16:09
--- NOTE | 2017-08-04 16:54 | MB ---
cc: Dion Wing MD, Franklyn F MD DATE: 08/04/2017 REQUESTING PHYSICIAN: Dr. Sotelo REASON FOR CONSULTATION: Medical management. The patient is status post removal of spinal hardware. History of MRSA now with severe sepsis postoperative drain [address] HISTORY OF PRESENT ILLNESS: This is a 76-year-old white female who presented to the Emergency Department from retirement facility with respiratory distress. She was noted to be complaining also of chest discomfort. The patient was intubated and is currently on a ventilator. She is on 50% FIO2. She is sedated and not able to give medical history at this time. In the emergency department, the patient had heart rate of 144, temperature 100.9 and respiratory rate of 53. Lactic acid level was 9.4. She was recently diagnosed with acute renal failure at [facility] and was transferred to a retirement facility upon discharge there on 08/02/2017 . Her evaluation at [facility] was because of altered mental status and also acute kidney disease. The patient has a history of recent surgery at [facility] in [place]. She underwent removal of hardware from the lumbosacral spine L1-S1 because of exposed loosened hardware from prior surgery. She reportedly had surgery of the lumbosacral spine 10 years prior. The surgery at [facility] was on 06/27. Intraoperative culture reportedly had MRSA. She was put on antibiotics by infectious disease to complete on 07/29/2017. She was receiving intravenous vancomycin. The patient completed the course of the vancomycin. There is a notation in the medical record that she is ALLERGIC TO VANCOMYCIN. She is currently on daptomycin. She continues with a drainage catheter in the lumbosacral region from prior surgery. She was seen by infectious disease physician at [facility] and reportedly will be in need of IV antibiotics for 6 weeks because of osteomyelitis of the lumbar spine. Currently, the patient is lying in bed and is unresponsive. She is on 50% FIO2. Information is obtained from the medical record, since she is unable to give information. Her current white blood cell count is 14.3. Blood cultures have no growth in 1 day. Urine culture has immature material growth. Urinalysis reveals 129 white cells. Urinalysis also showed large amount of leukocyte esterase. Chest x-ray reveals grossly clear lungs. CT scan of the lumbar spine has been ordered. The final report of the CT scan is not yet available. There are visible screws at the lumbosacral spine region. PAST MEDICAL HISTORY: 1. L4-S1 fusion. Recent hardware removal. 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 The patient noted to have loosened hardware 2. Atrial fibrillation. 3. COPD, 4. Plasmacytoma, 5. Anemia, 6. Osteoarthritis, 7. Appendectomy, 8. Hysterectomy, 9. Tonsillectomy, 10. Cholecystectomy, 11. Gastroesophageal reflux disease surgery. ALLERGIES: VANCOMYCIN, ALBUTEROL, GABAPENTIN, IPRATROPIUM, IRON, PENICILLIN G, PROCHLORPERAZINE MEDICATIONS: 1. Ceftriaxone needed 2. Inhaled Atrovent . 3. Cardizem. 4. Vitamin C, 5. Zinc 6. Flonase. 7. Pepcid. 8. Dina-Colace. 9. Daptomycin placed on hold. SOCIAL HISTORY: No tobacco, alcohol or illicit drugs. The patient is single. FAMILY HISTORY: Noncontributory. REVIEW OF SYSTEMS: Unable to obtain since the patient is intubated and on the ventilator. PHYSICAL EXAMINATION: GENERAL: She is a frail-appearing female who is unresponsive on the ventilator. VITAL SIGNS: Temperature 98.2, BP 124/77, heart rate 112. HEENT: The head is atraumatic. Extraocular movements cannot be fully assessed since the patient cannot cooperate. Oropharynx intubated. Mucosa appears moist. NECK: No swelling or adenopathy. LUNGS: Rhonchi at both bases. HEART: Irregular S1 and S2. No audible murmurs, rubs or gallops. ABDOMEN: Slightly distended, soft, decreased bowel sounds. RECTAL: Not performed. BACK: KAY drainage catheter exits the back and has light serous drainage. EXTREMITIES: No clubbing, cyanosis or edema. SKIN: No rash. NEUROLOGIC: Unable to fully assess. PSYCHIATRIC: Unable to fully assess. LABORATORY DATA: WBC 14.3, platelets 116, hemoglobin 10.5, 90% neutrophils. Creatinine 1.63, BUN 45, sodium 142, AST 1971, ALT 620, CO2 of 13, PT 63, PTT 65 IMPRESSION: 1. Septic shock. 2. Acute hypercapnic respiratory failure. 3. Acute renal failure. 4. 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 The patient is status post hardware removal from the lumbar spine and noted to have methicillin-resistant Staph aureus on culture. She received a course of IV vancomycin. Subsequently, she was started on daptomycin for chronic infection with plan to treat the patient for 6 weeks after discharge from [facility] on 08/02 for incision and drainage consultation there. She had been started on daptomycin and was [facility] dapt[facility] prior to admission here at [facility]. 6. Urinary tract infection suggested by urinalysis and urine culture is pending, potential cause of the current sepsis picture. RECOMMENDATIONS: 1. Continue the daptomycin at q 48 hour interval. 2. Change ceftriaxone to Azactam 3. Monitor urine culture. 4. Monitor blood culture. 5. Monitor wound culture from the back drainage. 6. Monitor white blood cell count. 7. Monitor clinical status. Thank you for the consultation. The patient's progress will be followed with you closely and further recommendations will be made on followup as necessary. MD DIANN Gomez/ , 03:56 PM , 04:53 PM
[2017-08-04] MEDS ORDERED: IOHEXOL 350 MG/ML 50 ML BTL (for RAD DIAG) NG ONE (17:00)
--- NOTE | 2017-08-04 17:42 | RADRPT ---
EXAM DATE/TIME: 08/04/2017 17:00 [facility] COMPARISON: No previous studies available for comparison. INDICATIONS : Patient with a history of respiratory failure, needs nutrition. MEDICAL HISTORY : AFIB COPD Asthma Hepatitis SURGICAL HISTORY : Appendectomy Hysterectomy ENCOUNTER: Initial ACUITY: 1 day PAIN SCORE: Nonresponsive. FLUORO TIME: 6.8 minutes IMAGE SERIES: 2 CONTRAST: 10 cc Omnipaque (iohexol) 350 DEVICE(S): 1.) 14FR NG tube PROCEDURE : 1. Fluoroscopically guided nasoenteric suction type catheter placement. The risks, benefits and alternatives to the procedure were explained and verbal and written consent w as obtained. With fluoroscopic guidance a standard nasogastric tube was passed through the nasal cav ity into the stomach. Position was confirmed small amount of contrast. CONCLUSION: Uncomplicated nasoenteric suction type catheter (NGT) placement as above. Librado Hernandez MD on August 04, 2017 at 17:39 Board Certified Radiologist. This report was verified electronically.
[2017-08-04] MEDS: AZTREONAM INJ 1,000 MG in SODIUM CHLORIDE 0.9% INJ 100 ML IV SCH (17:49)
[2017-08-04] MEDS: CHLORHEXIDINE 0.12% (ORAL KIT) 15 ML CUP MT SCH (20:00)
[2017-08-04] MEDS: fentaNYL DRIP 250 ML IV PRN (23:17)
[2017-08-05] VITALS (18 sets, daily range): BP systolic 103–151; BP diastolic 55–82; PULSE 59–92; RESP 15–20; TEMP 98.3–98.9; O2SAT 82–100
[2017-08-05 01:14] LABS: AUTOMATED NEUTROPHIL # 10.8 TH/MM3 (1.8-7.7); BASOPHIL % 0.3 % (0.0-2.0); HEMATOCRIT 28.4 % (35.0-46.0); HEMOGLOBIN 9.5 GM/DL (11.6-15.3); LYMPH % 4.9 % (9.0-44.0); LYMPHOCYTE # 0.6 TH/MM3 (1.0-4.8); MEAN CELL VOLUME 96.6 FL (80.0-100.0); MEAN CORPUSCULAR HEMOGLOBIN 32.2 PG (27.0-34.0); MEAN CORPUSCULAR HGB CONC 33.3 % (32.0-36.0); MEAN PLATELET VOLUME 8.9 FL (7.0-11.0); MONO % 4.8 % (0.0-8.0); MONOCYTE # 0.6 TH/MM3 (0-0.9); PLATELET COUNT 138 TH/MM3 (150-450); RED BLOOD COUNT 2.94 MIL/MM3 (4.00-5.30); RED CELL DISTRIBUTION WIDTH 17.7 % (11.6-17.2)
[2017-08-05 01:21] LABS: PROTHROMBIN TIME - PATIENT 118.2 SEC (9.8-11.6)
[2017-08-05 01:45] LABS: ALBUMIN 1.8 GM/DL (3.4-5.0); BICARBONATE 26.9 MEQ/L (21.0-32.0); CALCIUM 6.6 MG/DL (8.5-10.1); CREATININE 1.94 MG/DL (0.50-1.00); MAGNESIUM 1.4 MG/DL (1.5-2.5); PHOSPHORUS 3.5 MG/DL (2.5-4.9); TOTAL BILIRUBIN ADULT 0.7 MG/DL (0.2-1.0); TOTAL PROTEIN 6.1 GM/DL (6.4-8.2)
[2017-08-05 01:46] LABS: CORRECTED NUCLEATED RBC 3 /100 WBC (0-0); LYMPHOCYTES 2 % (9-44); MONOCYTES 1 % (0-8); NEUTROPHIL # MANUAL DIFF 11.6 TH/MM3 (1.8-7.7); NUCLEATED RED BLOOD CELL 3 (0-0); POLYS (SEG NEUTROPHILS) 97 % (16-70)
[2017-08-05 01:48] LABS: CALCIUM-PROTEIN CORRECTED 7.1 MG/DL (8.5-10.1)
[2017-08-05 01:52] LABS: INTERNATIONAL NORMALIZED RATIO 11.9 RATIO
[2017-08-05] MEDS: RESP: IPRATROPIUM 0.5 MG/2.5 ML NEB NEB SCH ×3 (03:55→20:01)
[2017-08-05] MEDS: CHLORHEXIDINE GLUCONATE 2 % 1 PACK (2 CLOTHS) TOP SCH (04:00)
[2017-08-05] MEDS: AZTREONAM INJ 1,000 MG in SODIUM CHLORIDE 0.9% INJ 100 ML IV SCH ×2 (05:00→16:01)
--- NOTE | 2017-08-05 05:37 | RADRPT ---
EXAM DATE/TIME: 08/05/2017 04:54 [facility] COMPARISON: CHEST SINGLE AP, August 04, 2017, 11:42. INDICATIONS : Respiratory disease. MEDICAL HISTORY : Cardiovascular disease. Gastroesophageal reflux disease. Hepatitis SURGICAL HISTORY : Appendectomy. Hysterectomy. ENCOUNTER: Subsequent ACUITY: 1 day PAIN SCORE: Non-responsive. LOCATION: Bilateral chest FINDINGS: There has been interval placement of a nasogastric tube which descends into the stomach. Endotracheal tube is present with tip 7 cm above the paulo. Mild bibasilar pleuroparenchymal opacities are gross ly unchanged. Cardiac contours are stable. CONCLUSION: Normal placement of nasogastric tube. Grossly stable aeration Sterling Aguilar MD on August 05, 2017 at 5:35 Board Certified Radiologist. This report was verified electronically.
[2017-08-05] MEDS: SODIUM CHLORIDE 0.9% FLUSH 10 ML FLUSH IV FLUSH SCH ×5 (05:58→21:44)
[2017-08-05] MEDS: DILTIAZEM HCL 60 MG TAB PO SCH ×3 (05:58→21:44)
[2017-08-05] MEDS: SODIUM CHLOR 0.9% 1000 ML INJ 1,000 ML IV SCH ×2 (07:45→16:48)
[2017-08-05] MEDS: ASCORBIC ACID 500 MG TAB PO SCH (08:28)
[2017-08-05] MEDS: fentaNYL DRIP 250 ML IV PRN ×2 (08:28→17:35)
[2017-08-05] MEDS: CHLORHEXIDINE 0.12% (ORAL KIT) 15 ML CUP MT SCH ×2 (08:28→21:45)
[2017-08-05] MEDS: FLUTICASONE PROPIONATE 50 MCG/ACT 16 GM NASAL SPRAY EACH NARE SCH ×2 (08:28→21:44)
[2017-08-05] MEDS: DOCUSATE SODIUM 50 MG/SENNA 8.6 MG TAB PO SCH ×2 (08:28→21:44)
[2017-08-05] MEDS: FAMOTIDINE 20 MG/2 ML VIAL IV PUSH SCH (08:28)
[2017-08-05] MEDS: ZINC SULFATE 220 MG CAP PO SCH (08:29)
[2017-08-05] MEDS ORDERED: WARFARIN SOD 2 MG TAB PO SCH (09:00)
--- NOTE | 2017-08-05 11:37 | HHI.HCPN ---
Reason for visit a. To assist with evaluation and management of symptoms including: dyspnea, pain b. To assist medical decision maker(s) with: better understanding of current medical conditions; weighing benefits/burdens of medical treatment options; making medical treatment decisions. Subjective/Interval History Patient seen today to follow-up on dyspnea, comfort, and planned family meeting today at 0930. Patient stable overnight. WBC down slightly 12.0. BUN and creatinine remain elevated 58/1.94. CXR stable. NG tube was placed yesterday in radiology. Blood cultures with no growth to date. Urine positive yeast species, further identification pending. Patient seen in room, following lengthy meeting with brother Mark (Jose). She is sedated on fentanyl however she does follow my commands to grasp with hands, minimal movement of feet or legs. Very slight eye opening. No apparent distress. . Family/friend interactions Met with patient brothvíctor Flores at length, approx 40 min. Discussion included the following: Palliative care role, team members, reason for consult Additional medical/social/spiritual history Patient cognitive and functional status in the months to weeks prior to this admission Patient and/or family understanding of current medical conditions, prognosis , treatment options Overall condition, prognosis Legal decision makers per [place] statutes CODE STATUS[] patient to remain full code per her known wishes Palliative care contact information provided Met with mom at length. Review recent illness trajectory, current hospital course, recent intubation. Review of most recent diagnostics and current clinical condition and assessment. Review of patient underlying health. Review of patient previously expressed wishes. Mark indicates that she had been doing very well up until a couple of months ago and that it seems to be one thing after another. He indicates that all during this time she is indicated that she continue to want treatments to try to get better including full code etc. that she had remained hopeful that at some point she could again recover. He is supportive of her wishes. Review of legal decision makers, he indicates the patient has always deferred to him during her many acute illnesses however they do both remain in contact with all of their siblings. Reviewed that per [place] statutes would fall to majority of siblings unless they wish to elect 1 spokesperson. During our conversation he was able to reach for of his 5 siblings and they each deferred to him. He left a voicemail for the remaining sibling Itzel. For now he expresses aggressive goals as consistent with patient known wishes. He is open to ongoing conversations as clinical course evolves. He is hopeful that the patient will improve with ongoing aggressive treatments. Advance Directives Living Will: Never completed Health Care Surrogate: Never completed Durable Power of Direct Selling Counselor: Never completed Objective Vital Signs Date Time Temp Pulse Resp B/P (MAP) Pulse Ox O2 Delivery O2 Flow Rate FiO2 08/05/17 10:00 86 08/05/17 08:00 98.6 92 20 150/82 (104) 82 08/05/17 08:00 92 08/05/17 08:00 35 08/05/17 07:52 97 35 08/05/17 06:00 83 08/05/17 04:00 98.5 84 20 118/67 (84) 96 08/05/17 04:00 40 08/05/17 04:00 84 08/05/17 03:56 100 35 08/05/17 02:00 79 08/05/17 01:37 100 40 08/05/17 00:00 40 08/05/17 00:00 72 08/05/17 00:00 98.3 72 20 103/55 (71) 100 08/04/17 22:12 100 40 08/04/17 22:00 97 08/04/17 20:19 100 50 08/04/17 20:00 40 08/04/17 20:00 100 08/04/17 20:00 98.6 100 20 122/67 (85) 98 08/04/17 18:00 102 08/04/17 17:27 100 100 08/04/17 17:26 100 50 08/04/17 16:00 98.4 106 20 120/83 (95) 100 08/04/17 16:00 106 08/04/17 14:00 111 08/04/17 13:30 100 100 08/04/17 12:00 106 08/04/17 12:00 98.2 106 20 133/105 (114) Intake & Output 08/05/17 08/05/17 07:00 19:00 Intake Total 2310 ml Output Total 50 ml Balance 2260 ml IV Total 2250 ml Other 60 ml Output Urine Total 40 ml Drainage Total 10 ml # Bowel Movements 0 Physical Exam CONSTITUTIONAL/GENERAL: This is an adequately nourished patient, sedated minimally responsive on mechanical vent no apparent distress TUBES/LINES/DRAINS: Right femoral central line. ET tube. NG tube. Soft restraints bilateral upper extremities. SKIN: No jaundice, rashes, or lesions. Very pale. Multiple healed graft scars noted to upper legs, several scars, clean dry dressings to bilateral lower legs. Skin warm/dry. HEAD: Atraumatic. Normocephalic. EYES: Pupils 2 mm questionable reaction to light. No scleral icterus. No injection or drainage. Fundi not examined. CARDIOVASCULAR: Irregular rate and rhythm. Atrial fib observed. No JVD. Peripheral pulses symmetric-pedal pulses very faint RESPIRATORY/CHEST: Symmetric, unlabored respirations via mechanical vent. Clear to auscultation. Decreased air movement. GASTROINTESTINAL: Abdomen soft, no apparent tenderness though limited assessment , nondistended. No hepato-splenomegaly, or palpable masses. No guarding. Bowel sounds hypoactive. GENITOURINARY: Without palpable bladder distension. Catheter in place clear dark yellow urine. MUSCULOSKELETAL: Extremities without clubbing, cyanosis, or edema. Healed graft scars to upper legs. Dressings to lower legs. Lower legs are very thin, with significant muscle atrophy. Arthritic appearing deformity to feet. Kyphotic posture, leaning forward in bed. NEUROLOGICAL: Sedated on mechanical vent, very slight eye opening to stimuli. Grasps with hands weakly to commands. Minimal foot/leg movement to command. Appears comfortable. PSYCHIATRIC: No obvious anxiety/depression--limited assessment secondary to clinical condition. . Diagnostic Tests Laboratory Laboratory Tests Test 08/03/17 15:55 08/03/17 16:50 08/03/17 17:02 08/03/17 18:00 Urine Color YELLOW (YELLW/STRAW) Urine Turbidity HAZY (CLEAR) Urine pH 6.0 (5.0-8.5) Urine Specific Falcon 1.020 (1.002-1.035) Urine Protein 100 mg/dL (NEG-TRACE) Urine Glucose (UA) NEG mg/dL (NEG) Urine Ketones NEG mg/dL (NEG) Urine Occult Blood MOD (NEG) Urine Nitrite NEG (NEG) Urine Bilirubin NEG (NEG) Urine Urobilinogen LESS THAN 2.0 MG/DL (LESS Urine Leukocyte Esterase LARGE (NEG) Urine RBC 39 /hpf (0-3) Urine WBC 129 /hpf (0-5) Urine Squamous Epithelial Cells 1 /hpf (0-5) Urine Bacteria OCC /hpf (NONE) Urine Hyaline Casts 5 /lpf (RARE) Urine Yeast (Budding) MOD (NONE) Microscopic Urinalysis Comment CATH-CULTURE IND White Blood Count 9.8 TH/MM3 (4.0-11.0) Red Blood Count 3.58 MIL/MM3 (4.00-5.30) Hemoglobin 11.6 GM/DL (11.6-15.3) Hematocrit 35.8 % (35.0-46.0) Mean Corpuscular Volume 100.1 FL (80.0-100.0) Mean Corpuscular Hemoglobin 32.5 PG (27.0-34.0) Mean Corpuscular Hemoglobin Concent 32.4 % (32.0-36.0) Red Cell Distribution Width 17.9 % (11.6-17.2) Platelet Count 208 TH/MM3 (150-450) Mean Platelet Volume 9.0 FL (7.0-11.0) Neutrophils (%) (Auto) 86.6 % (16.0-70.0) Lymphocytes (%) (Auto) 6.1 % (9.0-44.0) Monocytes (%) (Auto) 7.0 % (0.0-8.0) Eosinophils (%) (Auto) 0.0 % (0.0-4.0) Basophils (%) (Auto) 0.3 % (0.0-2.0) Neutrophils # (Auto) 8.5 TH/MM3 (1.8-7.7) Lymphocytes # (Auto) 0.6 TH/MM3 (1.0-4.8) Monocytes # (Auto) 0.7 TH/MM3 (0-0.9) Eosinophils # (Auto) 0.0 TH/MM3 (0-0.4) Basophils # (Auto) 0.0 TH/MM3 (0-0.2) CBC Comment DIFF FINAL Differential Comment Blood Urea Nitrogen 41 MG/DL (7-18) Creatinine 1.66 MG/DL (0.50-1.00) Random Glucose 82 MG/DL (74-106) Total Protein 9.3 GM/DL (6.4-8.2) Albumin 2.6 GM/DL (3.4-5.0) Calcium Level 9.0 MG/DL (8.5-10.1) Alkaline Phosphatase 137 U/L (45-117) Aspartate Amino Transf (AST/SGOT) 67 U/L (15-37) Alanine Aminotransferase (ALT/SGPT) 37 U/L (10-53) Total Bilirubin 1.0 MG/DL (0.2-1.0) Sodium Level 139 MEQ/L (136-145) Potassium Level 5.8 MEQ/L (3.5-5.1) Chloride Level 107 MEQ/L (98-107) Carbon Dioxide Level 16.0 MEQ/L (21.0-32.0) Anion Gap 16 MEQ/L (5-15) Estimat Glomerular Filtration Rate 30 ML/MIN (>89) Lactic Acid Level 9.4 mmol/L (0.4-2.0) Troponin I 0.06 NG/ML (0.02-0.05) B-Type Natriuretic Peptide 4339 PG/ML (0-100) Prothrombin Time 28.5 SEC (9.8-11.6) Prothromb Time International Ratio 2.8 RATIO Blood Gas Puncture Site LT RADIAL Blood Gas Patient Temperature 98.6 Blood Gas HCO3 11 mmol/L (22-26) Blood Gas Base Excess -15.5 mmol/L (-2-2) Blood Gas Oxygen Saturation 95 % (90-100) Arterial Blood pH 7.22 (7.380-7.420) Arterial Blood Partial Pressure CO2 27 mmHg (38-42) Arterial Blood Partial Pressure O2 102 mmHG (61-120) Arterial Blood Oxygen Content 15.2 Vol % (12.0-20.0) Arterial Blood Carboxyhemoglobin 0.8 % (0-4) Arterial Blood Methemoglobin 0.5 % (0-2) Blood Gas Hemoglobin 11.3 G/DL (12.0-16.0) Oxygen Delivery Device NASAL CANNULA Blood Gas Liter Flow 2 L/M Test 08/03/17 21:23 08/03/17 22:00 08/03/17 22:20 08/04/17 06:00 Blood Gas Puncture Site LT RADIAL Blood Gas Patient Temperature 98.6 Blood Gas HCO3 10 mmol/L (22-26) Blood Gas Base Excess -17.6 mmol/L (-2-2) Blood Gas Oxygen Saturation 92 % (90-100) Arterial Blood pH 7.14 (7.380-7.420) Arterial Blood Partial Pressure CO2 30 mmHg (38-42) Arterial Blood Partial Pressure O2 95 mmHg (61-120) Arterial Blood Oxygen Content 14.3 Vol % (12.0-20.0) Arterial Blood Carboxyhemoglobin 0.6 % (0-4) Arterial Blood Methemoglobin 1.4 % (0-2) Blood Gas Hemoglobin 11.0 G/DL (12.0-16.0) Oxygen Delivery Device NASAL CANNULA Blood Gas Liter Flow 2 L/M Nasal Screen MRSA (PCR) MRSA DETECTED (NOT DETECT) Lactic Acid Level 12.7 mmol/L (0.4-2.0) 10.7 mmol/L (0.4-2.0) White Blood Count 14.3 TH/MM3 (4.0-11.0) Red Blood Count 3.21 MIL/MM3 (4.00-5.30) Hemoglobin 10.5 GM/DL (11.6-15.3) Hematocrit 33.3 % (35.0-46.0) Mean Corpuscular Volume 103.7 FL (80.0-100.0) Mean Corpuscular Hemoglobin 32.7 PG (27.0-34.0) Mean Corpuscular Hemoglobin Concent 31.6 % (32.0-36.0) Red Cell Distribution Width 18.1 % (11.6-17.2) Platelet Count 116 TH/MM3 (150-450) Mean Platelet Volume 8.5 FL (7.0-11.0) Neutrophils (%) (Auto) 90.4 % (16.0-70.0) Lymphocytes (%) (Auto) 2.5 % (9.0-44.0) Monocytes (%) (Auto) 7.1 % (0.0-8.0) Eosinophils (%) (Auto) 0.0 % (0.0-4.0) Basophils (%) (Auto) 0.0 % (0.0-2.0) Neutrophils # (Auto) 12.9 TH/MM3 (1.8-7.7) Lymphocytes # (Auto) 0.4 TH/MM3 (1.0-4.8) Monocytes # (Auto) 1.0 TH/MM3 (0-0.9) Eosinophils # (Auto) 0.0 TH/MM3 (0-0.4) Basophils # (Auto) 0.0 TH/MM3 (0-0.2) CBC Comment AUTO DIFF Differential Total Cells Counted 100 Neutrophils % (Manual) 87 % (16-70) Band Neutrophils % 4 % (0-6) Lymphocytes % 1 % (9-44) Monocytes % 7 % (0-8) Neutrophils # (Manual) 13.2 TH/MM3 (1.8-7.7) Myelocytes 1 % (0-0) Differential Comment FINAL DIFF MANUAL Platelet Estimate LOW (NORMAL) Platelet Morphology Comment NORMAL (NORMAL) Prothrombin Time 63.3 SEC (9.8-11.6) Prothromb Time International Ratio 6.3 RATIO Activated Partial Thromboplast Time 65.9 SEC (24.3-30.1) Blood Urea Nitrogen 45 MG/DL (7-18) Creatinine 1.63 MG/DL (0.50-1.00) Random Glucose 65 MG/DL (74-106) Total Protein 6.8 GM/DL (6.4-8.2) Albumin 1.9 GM/DL (3.4-5.0) Calcium Level 7.1 MG/DL (8.5-10.1) Phosphorus Level 6.3 MG/DL (2.5-4.9) Magnesium Level 1.5 MG/DL (1.5-2.5) Alkaline Phosphatase 194 U/L (45-117) Aspartate Amino Transf (AST/SGOT) 1971 U/L (15-37) Alanine Aminotransferase (ALT/SGPT) 620 U/L (10-53) Total Bilirubin 1.3 MG/DL (0.2-1.0) Sodium Level 142 MEQ/L (136-145) Potassium Level 5.9 MEQ/L (3.5-5.1) Chloride Level 112 MEQ/L (98-107) Carbon Dioxide Level 13.0 MEQ/L (21.0-32.0) Anion Gap 17 MEQ/L (5-15) Estimat Glomerular Filtration Rate 31 ML/MIN (>89) Protein Corrected Calcium 7.3 MG/DL (8.5-10.1) Troponin I 0.17 NG/ML (0.02-0.05) Test 08/04/17 08:35 08/04/17 12:40 08/04/17 13:00 08/04/17 18:00 Blood Gas Puncture Site LT RADIAL LT RADIAL Blood Gas Patient Temperature 98.6 98.6 Venous Blood pH 7.11 (7.360-7.400) Venous Blood Partial Pressure CO2 46 mmHg (44-48) Venous Blood Partial Pressure O2 22 mmHg (35-40) Venous Blood HCO3 14 mmol/L (22-26) Venous Blood Oxygen Saturation 24 % (70-76) Venous Blood Oxygen Content 3.7 Vol % (9.0-17.0) Venous Blood Base Excess -13.9 mmol/L (-2-2) Oxygen Delivery Device NASAL CANNULA VENTILATOR Blood Gas Liter Flow 4 L/M Lactic Acid Level 8.5 mmol/L (0.4-2.0) 5.4 mmol/L (0.4-2.0) B-Type Natriuretic Peptide 4286 PG/ML (0-100) Blood Gas HCO3 15 mmol/L (22-26) Blood Gas Base Excess -9.9 mmol/L (-2-2) Blood Gas Oxygen Saturation 97 % (90-100) Arterial Blood pH 7.31 (7.380-7.420) Arterial Blood Partial Pressure CO2 31 mmHg (38-42) Arterial Blood Partial Pressure O2 192 mmHg (61-120) Arterial Blood Oxygen Content 17.2 Vol % (12.0-20.0) Arterial Blood Carboxyhemoglobin 0.7 % (0-4) Arterial Blood Methemoglobin 1.4 % (0-2) Blood Gas Hemoglobin 12.3 G/DL (12.0-16.0) Blood Gas Ventilator Setting PRVC20/450/0.9/+5 Blood Gas Inspired Oxygen 50 % Test 08/05/17 00:45 White Blood Count 12.0 TH/MM3 (4.0-11.0) Red Blood Count 2.94 MIL/MM3 (4.00-5.30) Hemoglobin 9.5 GM/DL (11.6-15.3) Hematocrit 28.4 % (35.0-46.0) Mean Corpuscular Volume 96.6 FL (80.0-100.0) Mean Corpuscular Hemoglobin 32.2 PG (27.0-34.0) Mean Corpuscular Hemoglobin Concent 33.3 % (32.0-36.0) Red Cell Distribution Width 17.7 % (11.6-17.2) Platelet Count 138 TH/MM3 (150-450) Mean Platelet Volume 8.9 FL (7.0-11.0) Neutrophils (%) (Auto) 90.0 % (16.0-70.0) Lymphocytes (%) (Auto) 4.9 % (9.0-44.0) Monocytes (%) (Auto) 4.8 % (0.0-8.0) Eosinophils (%) (Auto) 0.0 % (0.0-4.0) Basophils (%) (Auto) 0.3 % (0.0-2.0) Neutrophils # (Auto) 10.8 TH/MM3 (1.8-7.7) Lymphocytes # (Auto) 0.6 TH/MM3 (1.0-4.8) Monocytes # (Auto) 0.6 TH/MM3 (0-0.9) Eosinophils # (Auto) 0.0 TH/MM3 (0-0.4) Basophils # (Auto) 0.0 TH/MM3 (0-0.2) CBC Comment AUTO DIFF Differential Total Cells Counted 100 Neutrophils % (Manual) 97 % (16-70) Lymphocytes % 2 % (9-44) Monocytes % 1 % (0-8) Neutrophils # (Manual) 11.6 TH/MM3 (1.8-7.7) Nucleated Red Blood Cells 3 /100 WBC (0-0) Differential Comment FINAL DIFF MANUAL Platelet Estimate LOW (NORMAL) Platelet Morphology Comment NORMAL (NORMAL) Prothrombin Time 118.2 SEC (9.8-11.6) Prothromb Time International Ratio 11.9 RATIO Blood Urea Nitrogen 58 MG/DL (7-18) Creatinine 1.94 MG/DL (0.50-1.00) Random Glucose 168 MG/DL (74-106) Total Protein 6.1 GM/DL (6.4-8.2) Albumin 1.8 GM/DL (3.4-5.0) Calcium Level 6.6 MG/DL (8.5-10.1) Phosphorus Level 3.5 MG/DL (2.5-4.9) Magnesium Level 1.4 MG/DL (1.5-2.5) Alkaline Phosphatase 175 U/L (45-117) Aspartate Amino Transf (AST/SGOT) 2834 U/L (15-37) Alanine Aminotransferase (ALT/SGPT) 1436 U/L (10-53) Total Bilirubin 0.7 MG/DL (0.2-1.0) Sodium Level 146 MEQ/L (136-145) Potassium Level 4.4 MEQ/L (3.5-5.1) Chloride Level 108 MEQ/L (98-107) Carbon Dioxide Level 26.9 MEQ/L (21.0-32.0) Anion Gap 11 MEQ/L (5-15) Estimat Glomerular Filtration Rate 25 ML/MIN (>89) Lactic Acid Level 3.3 mmol/L (0.4-2.0) Protein Corrected Calcium 7.1 MG/DL (8.5-10.1) B-Type Natriuretic Peptide 1938 PG/ML (0-100) Result Diagram: 08/05/17 0045 08/05/17 0045 Microbiology Microbiology Date/Time Source Procedure Growth Status 08/03/17 20:00 Blood Peripheral Aerobic Blood Culture - Preliminary NO GROWTH IN 2 DAYS Resulted 08/03/17 20:00 Blood Peripheral Anaerobic Blood Culture - Preliminary NO GROWTH IN 2 DAYS Resulted 08/03/17 17:00 Blood Peripheral Aerobic Blood Culture - Preliminary NO GROWTH IN 2 DAYS Resulted 08/03/17 17:00 Blood Peripheral Anaerobic Blood Culture - Preliminary NO GROWTH IN 2 DAYS Resulted 08/03/17 16:50 Blood Peripheral Aerobic Blood Culture - Preliminary NO GROWTH IN 2 DAYS Resulted 08/03/17 16:50 Blood Peripheral Anaerobic Blood Culture - Preliminary NO GROWTH IN 2 DAYS Resulted 08/03/17 15:55 Urine Catheterized Urine Urine Culture - Preliminary Yeast-Id To Follow Resulted Imaging Last Impressions Chest X-Ray 08/05/17 0600 Signed Impressions: Service Date/Time: Saturday, August 05, 2017 04:54 - CONCLUSION: Normal placement of nasogastric tube. Grossly stable aeration Sterling Aguilar MD Lumbar Spine CT 08/04/17 0000 Signed Impressions: Service Date/Time: August 13:46 - CONCLUSION: 1. There is low density in the soft tissues at the recent laminectomy site L4-L5 measuring up to 2.4 cm in thickness with out deformity of the posterior thecal sac at the laminectomy site. 2. Stable anterolisthesis at L5-S1 with bony fusion. 3. 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 Maykel Singh MD Abdomen/Pelvis CT 08/04/17 0000 Signed Impressions: Service Date/Time: August 13:46 - CONCLUSION: 1. There is stool diffusely throughout the colon suggesting constipation. 2. The solid organs of the abdomen are grossly intact. 3. No free air free fluid seen within the abdomen. No abscess is identified. 4. Small amount of free fluid within the abdomen. 5. Bilateral pleural effusions and consolidation. 6. Cardiomegaly. 7. 2 mm nonobstructing stone in the lower pole collecting system of the right kidney. 8. Anasarca. Mil Toro MD Abdomen Fluoroscopy 08/04/17 0000 Signed Impressions: Service Date/Time: August 17:00 - CONCLUSION: Uncomplicated nasoenteric suction type catheter (NGT) placement as above. Librado Hernandez MD Procedures 08/03/17 central line placed 08/04/17 intubated Assessment and Plan Disease Oriented Problem List: (1) Acute respiratory failure (2) CAD (coronary artery disease) (3) GERD (gastroesophageal reflux disease) (4) Anemia (5) Chest pain (6) Elevated troponin (7) Urinary tract infection (8) Sepsis (9) MRSA (methicillin resistant Staphylococcus aureus) septicemia (10) Atrial fibrillation with RVR (11) Hyperkalemia (12) Cardiomegaly (13) Hypoglycemia (14) Renal insufficiency (15) Metabolic acidosis (16) CKD (chronic kidney disease) stage 4, GFR 15-29 ml/min Symptom Scale: (1) Dyspnea 0-10 Scale: Unable to quantify (2) Pain 0-10 Scale: Unable to quantify Pertinent Non-Medical Issues 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 Not no children. Part of a very large family she has multiple siblings. She is closest with her brother Jose, who is local. Jose describes her as jessee and extremely kind and caring. 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 She may at some point regain ability to participate. Brother Jose indicates she has always listed him as primary contact, and has always indicated that she trusts him to make decisions when she cannot however he is not certain that she has completed any documentation of healthcare surrogate or advanced directives. Per [place] statutes legal decision making would fall to the majority of all of patient's siblings. Brother indicates that he has always been the one assisting her with medical needs, decisions. Will discuss with him further tomorrow and attempt to contact additional siblings to determine if they wish to participate in decision-making. 08/05/17 4 of 5 siblings defer to brothvíctor Garcia. Ethical issues impacting care: None identified Important Contacts Brothvíctor ParhamJose) Maria Isabel [phone] Sister Karrie defers to brother Jose Sister Malu defers to brother Jose Katz defers to brother Jose brother Gm defers to bill Sister Itzel . Prognosis This patient was admitted for respiratory distress, chest discomfort. She has had multiple recent hospitalizations and rehabilitation courses. Brother details that each time one condition stabilizes or improves she experiences another complication. She has required ongoing treatment for MRSA infection at a surgical site. Given her advanced age and multiple condition she does remain at risk for continued complications and decline and possibly . Code Status: Full Code Plan * Legal decision maker: Patient currently on mechanical vent, sedation unable to participate in decision-making. She may at some point regain ability to participate. Brothvíctor Garcia indicates she has always listed him as primary contact, and has always indicated that she trusts him to make decisions when she cannot however he is not certain that she has completed any documentation of healthcare surrogate or advanced directives. Per [place] statutes legal decision making would fall to the majority of all of patient's siblings. Brother indicates that he has always been the one assisting her with medical needs, decisions. Will discuss with him further tomorrow and attempt to contact additional siblings to determine if they wish to participate in decision -making. 08/05/17 brothvíctor Carrera )called 4 of the 5 siblings each elected for him to serve as spokesperson for proxy decision-making. He left a voicemail for the fifth sibling Itzel. * Goals: For now he expresses aggressive goals as consistent with patient known wishes. He is open to ongoing conversations as clinical course evolves. He is hopeful that the patient will improve with ongoing aggressive treatments. * CODE STATUS:Full code * SYMPTOMS: --dyspnea-admitted for respiratory distress. Worsening respiratory status, metabolic acidosis, intubated this morning just prior to my evaluation. She is currently breathing comfortably on mechanical vent. She is on sedation no asynchrony observed. Initial CXR limited study lungs grossly clear. Postintubation CXR today stable no significant changes. --Pain-patient appears comfortable at time of exam, currently unable to report pain however potential sources would include: Bedbound status, recent invasive procedure intubation, central line, multiple recent hospitalizations and surgical procedures, KAY to back still in place. She is noted to be on chronic morphine long-acting and short-acting prior to admission and has underwent multiple procedures and hospitalizations recently so likely has some underlying chronic pain. She was initially started on on fentanyl drip 50 mics/ hour per critical care --this is been increased to 250 mics/hour. She is chronically on morphine extended release 15 mg every 12 hours, as well as morphine 15 mg prn for breakthrough pain; appears she is not opiate salomón may need additional pain regimen as clinical course goes forward. Will continue to evaluate. She appears comfortable today at time of my exam. * Palliative care will continue to follow during hospital course as condition evolves, to assist patient/decision-maker with understanding of medical conditions, weighing benefits/burdens of treatment options, for clarification of goals of treatment. Additionally will assist with any symptoms of palliative concern . Time Spent Total Floor Time (mins): 50 (Chart review, physical exam, discussion with family/proxy, discussion with nursing, discussion with critical care) Attestation To help prompt me to consider important information that might be impacting today's encounter and assessment, information from prior notes written by myself or my colleagues may have been "brought forward" into today's note. My signature on this note, however, is an attestation that I personally performed the exam, history, and/or decision-making noted today, and, unless otherwise indicated, the interactions with patient, family, and staff as well as the review of records all occurred today. I also attest that the listed assessment and stated plan reflect my best clinical judgment today based on the combination of historical information, prior notes, and today's exam/ interactions. When time spent is documented, it refers only to time spent today by the signer, or if indicated, combined time spent today by collaborating physician/nurse practitioner. Angelica Barajas August 05, 2017 11:37
[2017-08-05] MEDS: SODIUM BICARBONATE 8.4% INJ 150 MEQ in DEXTROSE 5% IN WATE 1000ML INJ 850 ML IV SCH ×2 (13:13)
--- NOTE | 2017-08-05 13:26 | HHI.IDPN ---
Note Infectious Disease Note Patient is awake on the ventilator. Appears comfortable. Opens her eyes and tracks. Afebrile. No significant secretions noted. Blood cultures no growth so far. Urine culture as Denise. Liver function tests is markedly elevated. 76-year-old white female who presented to the Emergency Department from residential facility with respiratory distress. She was noted to be complaining also of chest discomfort. The patient was intubated and is currently on a ventilator. In the emergency department, the patient had heart rate of 144, temperature 100.9 and respiratory rate of 53. Lactic acid level was 9.4. She was recently diagnosed with acute renal failure at [facility] and was transferred to a residential facility upon discharge there on 08/02/2017 . Evaluated at [facility] for altered mental status and also acute kidney disease. The patient has a history of recent surgery at [facility] in [place]. She underwent removal of hardware from the lumbosacral spine L1-S1 because of exposed loosened hardware from prior surgery. She reportedly had surgery of the lumbosacral spine 10 years prior. The surgery at [facility] was on 06/27. Intraoperative culture reportedly had MRSA. She was put on antibiotics by infectious disease to complete on 07/29/2017. She was receiving intravenous vancomycin. She was seen by infectious disease physician at [facility] and reportedly will be in need of IV antibiotics for 6 weeks because of osteomyelitis of the lumbar spine. She had been started on daptomycin prior to this admission. PAST MEDICAL HISTORY: 1. L4-S1 fusion. Recent hardware removal. 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 The patient noted to have loosened hardware 2. Atrial fibrillation. 3. COPD, 4. Plasmacytoma, 5. Anemia, 6. Osteoarthritis, 7. Appendectomy, 8. Hysterectomy, 9. Tonsillectomy, 10. Cholecystectomy, 11. Gastroesophageal reflux disease surgery. ALLERGIES: VANCOMYCIN, ALBUTEROL, GABAPENTIN, IPRATROPIUM, IRON, PENICILLIN G, PROCHLORPERAZINE MEDICATIONS: Current Medications Medications (Trade) Dose Ordered Sig/Jayne Route PRN Reason Start Time Stop Time Status Last Admin Dose Admin Metoprolol Tartrate (Lopressor Inj) 5 mg Q5M PRN IV PUSH HR > 100 08/03/17 16:45 08/04/17 17:58 Ascorbic Acid (Vitamin C) 500 mg DAILY PO 08/04/17 09:00 08/05/17 08:28 Cyclobenzaprine HCl (Flexeril) 10 mg Q8HR PRN PO Muscle Cramps 08/03/17 19:45 Fluticasone Propionate (Flonase Harvey Spr) 1 spray Q12HR EACH NARE 08/03/17 21:00 08/05/17 08:28 Morphine Sulfate (Oramorph Sr) 15 mg Q12HR PO 08/03/17 21:00 Future Hold 08/04/17 07:57 Morphine Sulfate (Msir) 15 mg Q4H PRN PO Moderate Pain 08/03/17 19:45 Future Hold Sodium Chloride (NS Flush) 10 ml Q8HR IV FLUSH 08/03/17 22:00 08/05/17 05:58 Warfarin Sodium (Coumadin) 2 mg EVERY OTHER DAY PO 08/05/17 09:00 Future Hold Zinc Sulfate (Zinc Sulfate) 220 mg DAILY PO 08/04/17 09:00 08/05/17 08:29 Sodium Chloride 1,000 ml @ 84 mls/hr [id number] IV 08/03/17 20:00 08/04/17 19:50 Sodium Chloride (NS Flush) 2 ml UNSCH PRN IV FLUSH FLUSH AFTER USING IV ACCESS 08/03/17 20:00 Sodium Chloride (NS Flush) 2 ml BID IV FLUSH 08/03/17 21:00 08/05/17 08:29 Acetaminophen (Tylenol) 650 mg Q6H PRN PO PAIN 1-5 AND/OR FEVER >101F 08/03/17 20:00 Morphine Sulfate (Morphine Inj) 2 mg Q2H PRN IV PUSH PAIN SCALE 6 TO 10 08/03/17 20:00 Future Hold 08/04/17 05:14 Ondansetron HCl (Zofran Inj) 4 mg Q6H PRN IV PUSH NAUSEA OR VOMITING 08/03/17 20:00 Heparin Sodium (Porcine) (Heparin Inj) 5,000 units Q8H SQ 08/03/17 20:00 Future Hold 08/04/17 05:13 Miscellaneous Information ([facility] Nursing Information) 1 [id number] 08/03/17 20:00 08/03/17 22:46 Chlorhexidine Gluconate (Chlorhexidine 2% Cloth) 3 pack Taper DAILY@04 TOP 08/04/17 04:00 07/31/18 03:59 5/4/18 04:00 Chlorhexidine Gluconate (Chlorhexidine 2% Cloth) 3 pack UNSCH PRN TOP HYGIENIC CARE 08/03/17 20:00 Senna/Docusate Sodium (Dina-Colace) 1 tab BID PO 08/03/17 21:00 08/05/17 08:28 Magnesium Hydroxide (Milk Of Magnesia Liq) 30 ml Q12H PRN PO Mild constipation 08/03/17 20:00 Sennosides (Senokot) 17.2 mg Q12H PRN PO Moderate constipation 08/03/17 20:00 Bisacodyl (Dulcolax Supp) 10 mg DAILY PRN RECTAL SEVERE CONSITIPATION 08/03/17 20:00 Lactulose (Lactulose Liq) 30 ml DAILY PRN PO SEVERE CONSITIPATION 08/03/17 20:00 Pharmacy Profile Note 0 ml @ 0 mls/hr UNSCH OTHER 08/04/17 03:45 Sodium Bicarbonate 150 meq/Dextrose 1,000 ml @ 75 mls/hr [id number] IV 08/04/17 10:00 08/04/17 23:15 Diltiazem HCl (Cardizem) 60 mg Q8HR PO 08/04/17 10:45 08/05/17 05:58 Fentanyl Citrate 250 ml @ 5 mls/hr TITRATE PRN IV SEDATION 08/04/17 10:30 08/05/17 08:28 Chlorhexidine Gluconate (Peridex 0.12% Liq) 15 ml BID@08,20 MT 08/04/17 20:00 08/05/17 08:28 Ipratropium [place] (Atrovent Neb) 0.5 mg Q6HR NEB NEB 08/04/17 16:00 Aztreonam 1000 mg/ Sodium Chloride 100 ml @ 200 mls/hr Q12H IV 08/04/17 17:00 08/05/17 05:00 Daptomycin 500 mg/ Sodium Chloride 100 ml @ 200 mls/hr Q48H IV 08/06/17 11:00 Famotidine (Pepcid) 10 mg BID PO 08/05/17 21:00 Objective: Vital Signs Date Time Temp Pulse Resp B/P (MAP) Pulse Ox O2 Delivery O2 Flow Rate FiO2 08/05/17 12:00 35 08/05/17 12:00 81 08/05/17 11:40 100 35 08/05/17 10:00 86 08/05/17 08:00 98.6 92 20 150/82 (104) 82 08/05/17 08:00 92 08/05/17 08:00 35 08/05/17 07:52 97 35 08/05/17 06:00 83 08/05/17 04:00 98.5 84 20 118/67 (84) 96 08/05/17 04:00 40 08/05/17 04:00 84 08/05/17 03:56 100 35 08/05/17 02:00 79 08/05/17 01:37 100 40 08/05/17 00:00 40 08/05/17 00:00 72 08/05/17 00:00 98.3 72 20 103/55 (71) 100 08/04/17 22:12 100 40 08/04/17 22:00 97 08/04/17 20:19 100 50 08/04/17 20:00 40 08/04/17 20:00 100 08/04/17 20:00 98.6 100 20 122/67 (85) 98 08/04/17 18:00 102 08/04/17 17:27 100 100 08/04/17 17:26 100 50 08/04/17 16:00 98.4 106 20 120/83 (95) 100 08/04/17 16:00 106 08/04/17 14:00 111 08/04/17 13:30 100 100 Laboratory Tests Test 08/04/17 18:00 08/05/17 00:45 08/05/17 12:16 Lactic Acid Level 5.4 mmol/L 3.3 mmol/L 2.1 mmol/L White Blood Count 12.0 TH/MM3 Red Blood Count 2.94 MIL/MM3 Hemoglobin 9.5 GM/DL Hematocrit 28.4 % Mean Corpuscular Volume 96.6 FL Mean Corpuscular Hemoglobin 32.2 PG Mean Corpuscular Hemoglobin Concent 33.3 % Red Cell Distribution Width 17.7 % Platelet Count 138 TH/MM3 Mean Platelet Volume 8.9 FL Neutrophils (%) (Auto) 90.0 % Lymphocytes (%) (Auto) 4.9 % Monocytes (%) (Auto) 4.8 % Eosinophils (%) (Auto) 0.0 % Basophils (%) (Auto) 0.3 % Neutrophils # (Auto) 10.8 TH/MM3 Lymphocytes # (Auto) 0.6 TH/MM3 Monocytes # (Auto) 0.6 TH/MM3 Eosinophils # (Auto) 0.0 TH/MM3 Basophils # (Auto) 0.0 TH/MM3 CBC Comment AUTO DIFF Differential Total Cells Counted 100 Neutrophils % (Manual) 97 % Lymphocytes % 2 % Monocytes % 1 % Neutrophils # (Manual) 11.6 TH/MM3 Nucleated Red Blood Cells 3 /100 WBC Differential Comment FINAL DIFF MANUAL Platelet Estimate LOW Platelet Morphology Comment NORMAL Prothrombin Time 118.2 SEC Prothromb Time International Ratio 11.9 RATIO Blood Urea Nitrogen 58 MG/DL Creatinine 1.94 MG/DL Random Glucose 168 MG/DL Total Protein 6.1 GM/DL Albumin 1.8 GM/DL Calcium Level 6.6 MG/DL Phosphorus Level 3.5 MG/DL Magnesium Level 1.4 MG/DL Alkaline Phosphatase 175 U/L Aspartate Amino Transf (AST/SGOT) 2834 U/L Alanine Aminotransferase (ALT/SGPT) 1436 U/L Total Bilirubin 0.7 MG/DL Sodium Level 146 MEQ/L Potassium Level 4.4 MEQ/L Chloride Level 108 MEQ/L Carbon Dioxide Level 26.9 MEQ/L Anion Gap 11 MEQ/L Estimat Glomerular Filtration Rate 25 ML/MIN Protein Corrected Calcium 7.1 MG/DL B-Type Natriuretic Peptide 1938 PG/ML Imaging: Chest X-Ray 08/05/17 0600 Signed Impressions: Service Date/Time: Saturday, August 05, 2017 04:54 - CONCLUSION: Normal placement of nasogastric tube. Grossly stable aeration Sterling Aguilar MD Lumbar Spine CT 08/04/17 0000 Signed Impressions: Service Date/Time: August 13:46 - CONCLUSION: 1. There is low density in the soft tissues at the recent laminectomy site L4-L5 measuring up to 2.4 cm in thickness with out deformity of the posterior thecal sac at the laminectomy site. 2. Stable anterolisthesis at L5-S1 with bony fusion. 3. 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 Maykel Singh MD Abdomen/Pelvis CT 08/04/17 0000 Signed Impressions: Service Date/Time: August 13:46 - CONCLUSION: 1. There is stool diffusely throughout the colon suggesting constipation. 2. The solid organs of the abdomen are grossly intact. 3. No free air free fluid seen within the abdomen. No abscess is identified. 4. Small amount of free fluid within the abdomen. 5. Bilateral pleural effusions and consolidation. 6. Cardiomegaly. 7. 2 mm nonobstructing stone in the lower pole collecting system of the right kidney. 8. Anasarca. Mil Toro MD Abdomen Fluoroscopy 08/04/17 0000 Signed Impressions: Service Date/Time: August 17:00 - CONCLUSION: Uncomplicated nasoenteric suction type catheter (NGT) placement as above. Librado Hernandez MD PHYSICAL EXAMINATION: GENERAL: Patient opens eyes and tracks. On the ventilator. HEENT: The head is atraumatic. Extraocular movements appear intact. Oropharynx intubated. Mucosa appears moist. NECK: No swelling or adenopathy. LUNGS: Rhonchi at both bases. HEART: Irregular S1 and S2. No audible murmurs, rubs or gallops. ABDOMEN: Slightly distended, soft, decreased bowel sounds. BACK: KAY drainage catheter exits the back and has serous drainage. EXTREMITIES: No clubbing, cyanosis or edema. SKIN: No rash. NEUROLOGIC: Unable to fully assess. PSYCHIATRIC: Unable to fully assess. IMPRESSION: 1. Septic shock. 2. Acute hypercapnic respiratory failure. 3. Acute renal failure. 4. Shock liver, probably from sepsis. 5. Osteomyelitis of the lumbar spine. Patient was placed on IV antibiotics By ID at [facility]. The patient is status post hardware removal from the lumbar spine and noted to have methicillin-resistant Staph aureus on culture. She received a course of IV vancomycin which was completed on 07/29/2017. Subsequently, she was started on daptomycin for chronic infection with plan to treat the patient for 6 weeks after discharge from [facility] on 08/02. 6. Candiduria. RECOMMENDATIONS: 1. Continue the Daptomycin at q 48 hour interval. 2. Continue Azactam. 3. Monitor blood cultures. 4. Monitor the wound culture. 5. Monitor white blood cell count. 6. Monitor clinical status. Dion Wing MD August 05, 2017 13:26
--- NOTE | 2017-08-05 15:03 | ECHRPT ---
Indication: Acute and subacute endocarditis, unspecified CONCLUSIONS The left ventricular systolic function is moderately reduced with an estimated ejection fraction in the range of 40-45%. Dyskinetic apical cap wall motion. The right ventricle is moderately dilated. Moderate mitral valve regurgitation. Aortic valve sclerosis is present. There is mild to moderate tricuspid valve regurgitation. There is estimated mild pulmonary hypertension present (range 40-50 mmHg). No visualized valvular vegetations. BP: / HR: Rhythm: MEASUREMENTS (Male / Female) Normal Values Technical Quality: 2D ECHO LV Diastolic Diameter PLAX 5.0 cm 4.2 - 5.9 / 3.9 - 5.3 cm LV Systolic Diameter PLAX 4.4 cm IVS Diastolic Thickness 0.9 cm 0.6 - 1.0 / 0.6 - 0.9 cm LVPW Diastolic Thickness 0.9 cm 0.6 - 1.0 / 0.6 - 0.9 cm LV Relative Wall Thickness 0.4 RV Internal Dim ED PLAX 3.1 cm M-MODE Aortic Root Diameter MM 3.6 cm LA Systolic Diameter MM 4.6 cm LA Ao Ratio MM 1.3 AV Cusp Separation MM 1.7 cm DOPPLER TR Peak Velocity 293.0 cm/s TR Peak Gradient 34.3 mmHg Right Atrial Pressure 10.0 mmHg Pulmonary Artery Systolic Pressu 44.3 mmHg Right Ventricular Systolic Press 44.3 mmHg FINDINGS LEFT VENTRICLE Wall thickness is normal. Normal left ventricular size. The left ventricular systolic function is moderately reduced with an estimated ejection fraction in the range of 40-45%. Dyskinetic apical cap wall motion. RIGHT VENTRICLE The right ventricle is moderately dilated. LEFT ATRIUM The left atrial size is moderately dilated. RIGHT ATRIUM The right atrial size is normal. ATRIAL SEPTUM Normal atrial septal thickness without atrial level shunting by limited color doppler interrogation. AORTA The aortic root and proximal ascending aorta are not well visualized. MITRAL VALVE [id number] mitral valve regurgitation. Structurally normal mitral valve. AORTIC VALVE The aortic valve is not well visualized. Aortic valve sclerosis is present. TRICUSPID VALVE There is mild to moderate tricuspid valve regurgitation. There is estimated mild pulmonary hypertension present (range 40-50 mmHg). PULMONARY VALVE No pulmonary valve regurgitation or stenosis. VESSELS The inferior vena cava was not well visualized. PERICARDIUM There is no pericardial effusion. Sky Burdick MD (Electronically Signed) Final Date:05 Aug 2017 15:02
--- NOTE | 2017-08-05 15:43 | HHI.CCPN ---
Subjective Remarks/Hospital Course 76-year-old female resident of the long-term presents with complaints of respiratory difficulty. Onset was today. She is also complaining with some chest discomfort. She denies productive cough. Her symptoms are moderate to severe with no exacerbating factors. This patient was reportedly just discharged from [facility] with discitis secondary to MRSA. Subjective: 5: Afebrile. Early this a.m. patient still having respiratory difficulty noted metabolic acidosis with a bicarb level 13, sodium bicarbonate infusion continues. She noticed to have respiratory distress ABGs performed. Impending intubation 7.10. Patient noted to have KAY drain emanating from back with dressing taken down no area redness yellow fluid and KAY drain sent for wound culture analysis. Upon further investigation patient's brother at bedside patient had lumbar hardware removed from [facility] in [place] approximately 6 weeks ago secondary to hardware eroding through the back and could be visualized on site. 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 Gottlieb cultures are pending. Attempts at medical record release forms from [facility] are pending. Patient previously last week at [facility] for acute kidney injury/urinary tract infection, attempting to obtain medical record. Patient was discharged approximately 2-3 days ago per report. This a.m. patient went into A. fib RVR with a heart rate in the 150s patient was given metoprolol 2 doses heart rate 112, patient is known to have chronic atrial fibrillation previously on Cardizem and digoxin 0.125 IV 1 dose Cardizem reinitiated. Discussion with patient regarding intubation and patient' s brother at bedside patient desires aggressive measures be undertaken patient requests intubation if needed and to remain a full code. Noted open areas skin wound areas on the lower extremities well-healed skin graft site left thigh wound care has been consulted. Palliative care also has been consulted to define goals of care. Subjective: 08/05: Patient noted with elevated INR, Coumadin has been discontinued for 2 days. Vitamin K ordered. No active signs of bleeding. Patient on sedation vacation following commands. Afib rate controlled 70's-80's since addition to p.o. Cardizem. Objective Vital Signs Date Time Temp Pulse Resp B/P (MAP) Pulse Ox O2 Delivery O2 Flow Rate FiO2 5/4/18 14:00 77 08/05/17 12:00 35 08/05/17 11:40 100 08/05/17 08:00 98.6 20 150/82 (104) 08/04/17 08:02 Nasal Cannula 2.00 Intake and Output 08/05/17 08/05/17 08/06/17 08:00 16:00 00:00 Intake Total 60 ml 250 ml Output Total 50 ml Balance 10 ml 250 ml Result Diagram: 08/05/17 0045 08/05/17 0045 Other Results Microbiology Date/Time Source Procedure Growth Status 08/03/17 15:55 Urine Catheterized Urine Urine Culture - Final Denise Glabrata Complete Imaging Last Impressions Chest X-Ray 08/05/17 0600 Signed Impressions: Service Date/Time: Saturday, August 05, 2017 04:54 - CONCLUSION: Normal placement of nasogastric tube. Grossly stable aeration Sterling Aguilar MD Lumbar Spine CT 08/04/17 0000 Signed Impressions: Service Date/Time: August 13:46 - CONCLUSION: 1. There is low density in the soft tissues at the recent laminectomy site L4-L5 measuring up to 2.4 cm in thickness with out deformity of the posterior thecal sac at the laminectomy site. 2. Stable anterolisthesis at L5-S1 with bony fusion. 3. 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 Maykel Singh MD Abdomen/Pelvis CT 08/04/17 0000 Signed Impressions: Service Date/Time: August 13:46 - CONCLUSION: 1. There is stool diffusely throughout the colon suggesting constipation. 2. The solid organs of the abdomen are grossly intact. 3. No free air free fluid seen within the abdomen. No abscess is identified. 4. Small amount of free fluid within the abdomen. 5. Bilateral pleural effusions and consolidation. 6. Cardiomegaly. 7. 2 mm nonobstructing stone in the lower pole collecting system of the right kidney. 8. Anasarca. Mil Toro MD Abdomen Fluoroscopy 08/04/17 0000 Signed Impressions: Service Date/Time: August 17:00 - CONCLUSION: Uncomplicated nasoenteric suction type catheter (NGT) placement as above. Librado Hernandez MD Last 24 hours Impressions Chest X-Ray 08/03/17 1635 Signed Impressions: Service Date/Time: Thursday, August 03, 2017 17:18 - CONCLUSION: Limited study. However the lungs are grossly clear. Moderate cardiomegaly. Brown Smith MD Procedures 08/04 -placement of NG tube IR Objective Remarks GENERAL: Elderly ill appearing female in moderate distress. Pale. She is sitting leaning to her right side with her neck flexed. SKIN: Pale and diaphoretic. HEAD: Normocephalic. Atraumatic. EYES: Pupils equal and round. No scleral icterus. No injection or drainage. ENT: No nasal bleeding or discharge. Mucous membranes pale. NECK: Trachea midline. Full range of motion without pain.. CARDIOVASCULAR: Rapid rate at about 150 with an irregular rhythm. RESPIRATORY: She is very tachypneic. Her sats on oxygen or in the upper 90s. Her lungs sound clear anteriorly. GASTROINTESTINAL: Abdomen soft. Nontender. Bowel sounds present. Nondistended. : Simpson catheter is in place. MUSCULOSKELETAL: KAY drain coming from the thoracic spine. It is draining purulent material. NEUROLOGICAL: Awake and alert. No obvious cranial nerve deficits. Motor grossly within normal limits. Normal speech. Date of Insertion: August 04, 2017 A/P Problem List: (1) Afib ICD Code: I48.91 - Unspecified atrial fibrillation Status: Acute (2) EMIR (acute kidney injury) ICD Code: N17.9 - Acute kidney failure, unspecified Status: Acute (3) CKD (chronic kidney disease) stage 4, GFR 15-29 ml/min ICD Code: N18.4 - Chronic kidney disease, stage 4 (severe) Status: Acute (4) Renal insufficiency ICD Code: N28.9 - Disorder of kidney and ureter, unspecified Status: Acute (5) Chronic pain ICD Code: G89.29 - Other chronic pain Status: Acute (6) Atrial fibrillation with RVR ICD Code: I48.91 - Unspecified atrial fibrillation Status: Acute (7) Hyperkalemia ICD Code: E87.5 - Hyperkalemia Status: Acute (8) Severe sepsis ICD Code: A41.9 - Sepsis, unspecified organism; R65.20 - Severe sepsis without septic shock (9) Metabolic acidosis ICD Code: E87.2 - Acidosis Status: Acute (10) Hypoglycemia ICD Code: E16.2 - Hypoglycemia, unspecified Status: Acute (11) Cardiomegaly ICD Code: I51.7 - Cardiomegaly Status: Acute Assessment and Plan Plan by systems: Neurologic: Chronic pain syndrome Status post removal of spinal hardware 06/19 Neuro checks per ICU protein Daily sedation vacation Avoid sedative type medication Fentanyl infusion to maintain ventilator synchrony Acetaminophen 650 mg every 6 hours as needed for temperature greater than 101.5 Respiratory: Acute hypercapnic respiratory failure COPD ABGs and chest x-rays as clinically indicated Ventilator bundle Schedule duo nebs every 6 hours, and every 2 hours as needed Repeat ABG Continue Fluticasone Cardiovascular: A. fib RVR History of hypertension Congestive heart failure Chronic atrial fibrillation Metoprolol 5 mg IV PRN Digoxin 0.125 mg IV 1 dose Begin Cardizem 60 mg every 8 hours, since home medicines include Cardizem CD Obtain echo-rule out endocarditis BNP 4339-continue to trend Initial troponin 0.7 continue to trend-possible elevation secondary to infection , and renal insufficiency Patient normally on Coumadin therapy INR initial noted to be 6.1-no active signs of bleeding Renal: Renal insufficiency Maintain Simpson -- Strict I/Os FEN/GI: CKD stage IV Acute on chronic kidney injury Probably UTI Lactic acidemia Severe metabolic acidosis Electrolyte derangement Monitor BMP Continue sodium bicarbonate infusion/ D5W Follow-up UTI - ceftriaxone Dietary consult-tube feeds 5/4 Difficult NG tube placement, placed by IR Hypocalcemia-calcium gluconate 1 g Hypomagnesia-mag 1 g Heme/ID: Anemia of chronic disease MRSA Discitis Coagulopathy Monitor CBC ID following-Atrezonam, daptomycin, Rocephin Follow-up blood and urine cultures Supratherapeutic INR-patient is on Coumadin, INR noted to be 11.0, vitamin K 10 mg IV Daptomycin for MRSA bacteremia on hold-need renal adjustment defer to ID to continue or change to different medication Transfuse for hemoglobin less than 7.0 Medical records release obtained for medical records at [facility] and [facility] Obtain CT abdomen and pelvis and lumbar spine Obtain wound culture and Gram stain, fungal culture from KAY drain Monitor lactate levels until cleared Endocrine: Hypoglycemia Glucose monitoring per ICU protocol Glucose 58-1 amp D50 IV this a.m. -- SSI Prophylaxis: GI Prophylaxis Famotidine BID DVT Prophylaxis -- SCDs Patient noted to have supratherapeutic INR Lines: PICC line in situ left forearm good blood return, peripheral IV x1. Central line if indicated Dispo: my billing statement This patient remains critically ill with one or more organ systems which are or may become a threat to life. I have spent in excess of 35 minutes discontinuously in the care and management of this patient. This time is exclusive of procedures, and includes, but is not limited to, evaluation of the patient, review of the medical record, discussions with family, consultants, nursing staff, or respiratory therapy, and documentation in the medical record. Physician Celia Malik MD August 05, 2017 15:43
[2017-08-05] MEDS ORDERED: PHYTONADIONE INJ 10 MG in SODIUM CHLORIDE 0.9% INJ 50 ML IV ONE (16:00)
[2017-08-05] MEDS: LACTULOSE SYRUP 20 GM/30 ML CUP PO SCH (16:01)
[2017-08-05 16:24] LABS: PROTHROMBIN TIME - PATIENT 102.7 SEC (9.8-11.6)
[2017-08-05 16:39] LABS: INTERNATIONAL NORMALIZED RATIO 10.3 RATIO
[2017-08-05] MEDS ORDERED: CALCIUM GLUCONATE INJ 1 GM in DEXTROSE 5% IN WATER 100ML INJ 100 ML IV ONE ×2 (17:00)
--- NOTE | 2017-08-05 19:44 | EKG ---
Date Performed: 08/04/2017 Time Performed: 18:27:47 PTAGE: 76 years EKG: ATRIAL FIBRILLATION WITH RAPID VENTRICULAR RESPONSE LOW QRS VOLTAGE IN PRECORDIAL LEADS POS SIBLE ANTERIOR MYOCARDIAL INFARCTION , PROBABLY OLD INFERIOR MYOCARDIAL INFARCTION , PROBABLY OLD Sin ce previous tracing, no significant change noted ABNORMAL ECG PREVIOUS TRACING : 08/03/2017 16.33 DOCTOR: Betzaida Bone Interpretating Date/Time 08/05/2017 16:42:44
[2017-08-05] MEDS: FAMOTIDINE 20 MG TAB PO SCH (21:44)
[2017-08-06] VITALS (19 sets, daily range): BP systolic 127–143; BP diastolic 68–73; PULSE 52–69; RESP 15–26; TEMP 98.6–99.5; O2SAT 92–99
[2017-08-06] MEDS: SODIUM CHLOR 0.9% 1000 ML INJ 1,000 ML IV SCH (01:51)
[2017-08-06] MEDS: RESP: IPRATROPIUM 0.5 MG/2.5 ML NEB NEB SCH ×4 (02:57→20:45)
[2017-08-06] MEDS: CHLORHEXIDINE GLUCONATE 2 % 1 PACK (2 CLOTHS) TOP SCH (03:34)
[2017-08-06] MEDS: SODIUM CHLORIDE 0.9% FLUSH 10 ML FLUSH IV FLUSH SCH ×5 (04:17→20:44)
[2017-08-06] MEDS: fentaNYL DRIP 250 ML IV PRN ×2 (04:17→16:13)
[2017-08-06] MEDS: AZTREONAM INJ 1,000 MG in SODIUM CHLORIDE 0.9% INJ 100 ML IV SCH ×2 (04:17→17:17)
[2017-08-06 05:16] LABS: AUTOMATED NEUTROPHIL # 8.9 TH/MM3 (1.8-7.7); BASOPHIL % 0.1 % (0.0-2.0); EOSINOPHIL # 0.1 TH/MM3 (0-0.4); EOSINOPHIL % 0.6 % (0.0-4.0); HEMATOCRIT 28.1 % (35.0-46.0); HEMOGLOBIN 9.7 GM/DL (11.6-15.3); LYMPH % 4.4 % (9.0-44.0); LYMPHOCYTE # 0.4 TH/MM3 (1.0-4.8); MEAN CELL VOLUME 96.4 FL (80.0-100.0); MEAN CORPUSCULAR HEMOGLOBIN 33.3 PG (27.0-34.0); MEAN CORPUSCULAR HGB CONC 34.6 % (32.0-36.0); MEAN PLATELET VOLUME 8.7 FL (7.0-11.0); MONO % 4.7 % (0.0-8.0); MONOCYTE # 0.5 TH/MM3 (0-0.9); NEUT % 90.2 % (16.0-70.0); PLATELET COUNT 131 TH/MM3 (150-450); RED BLOOD COUNT 2.91 MIL/MM3 (4.00-5.30); RED CELL DISTRIBUTION WIDTH 17.9 % (11.6-17.2); WHITE BLOOD COUNT 9.8 TH/MM3 (4.0-11.0)
--- NOTE | 2017-08-06 05:16 | RADRPT ---
EXAM DATE/TIME: 08/06/2017 03:13 [place] COMPARISON: CHEST SINGLE AP, August 05, 2017, 4:54. INDICATIONS : Shortness of breath, possible pulmonary disease. MEDICAL HISTORY : Cardiovascular disease. Gastroesophageal reflux disease. SURGICAL HISTORY : Appendectomy. Hysterectomy. ENCOUNTER: Subsequent ACUITY: 4 - 6 days PAIN SCORE: Non-responsive. LOCATION: Bilateral chest FINDINGS: Endotracheal tube and nasogastric tube are present satisfactory position. There has been interval inc rease in confluence of bilateral primarily basilar infiltrates. Area contours are grossly unchanged. CONCLUSION: Slight worsening in aeration Sterling Aguilar MD on August 06, 2017 at 5:13 Board Certified Radiologist. This report was verified electronically.
[2017-08-06] MEDS: DILTIAZEM HCL 60 MG TAB PO SCH ×3 (05:17→20:44)
[2017-08-06 05:57] LABS: ALBUMIN 1.9 GM/DL (3.4-5.0); CALCIUM 7.3 MG/DL (8.5-10.1); CALCIUM-PROTEIN CORRECTED 7.6 MG/DL (8.5-10.1); CREATININE 2.52 MG/DL (0.50-1.00); MAGNESIUM 1.4 MG/DL (1.5-2.5); PHOSPHORUS 3.4 MG/DL (2.5-4.9); TOTAL PROTEIN 6.5 GM/DL (6.4-8.2)
[2017-08-06] MEDS ORDERED: MAGNESIUM SULFATE 1 GM PREMIX 100 ML IV ONE (06:30)
[2017-08-06] MEDS: MAGNESIUM SULFATE 1 GM PREMIX 100 ML IV SCH ×2 (06:41→06:42)
[2017-08-06 07:31] LABS: INTERNATIONAL NORMALIZED RATIO 2.1 RATIO; PROTHROMBIN TIME - PATIENT 21.5 SEC (9.8-11.6)
[2017-08-06] MEDS: CHLORHEXIDINE 0.12% (ORAL KIT) 15 ML CUP MT SCH ×2 (08:50→20:44)
[2017-08-06] MEDS: FLUTICASONE PROPIONATE 50 MCG/ACT 16 GM NASAL SPRAY EACH NARE SCH ×2 (08:51→20:44)
[2017-08-06] MEDS: FAMOTIDINE 20 MG TAB PO SCH ×2 (08:52→20:44)
[2017-08-06] MEDS: DOCUSATE SODIUM 50 MG/SENNA 8.6 MG TAB PO SCH ×2 (08:52→20:44)
[2017-08-06] MEDS: LACTULOSE SYRUP 20 GM/30 ML CUP PO SCH (08:52)
[2017-08-06] MEDS: ASCORBIC ACID 500 MG TAB PO SCH (08:53)
[2017-08-06] MEDS: ZINC SULFATE 220 MG CAP PO SCH (08:53)
[2017-08-06] MEDS: DAPTOmycin INJ 500 MG in SODIUM CHLORIDE 0.9% INJ 100 ML IV SCH (11:50)
--- NOTE | 2017-08-06 14:59 | HHI.CCPN ---
Subjective Remarks/Hospital Course 76-year-old female resident of the [facility] presents with complaints of respiratory difficulty. Onset was today. She is also complaining with some chest discomfort. She denies productive cough. Her symptoms are moderate to severe with no exacerbating factors. This patient was reportedly just discharged from [facility] with discitis secondary to MRSA. Subjective: 08/04: Afebrile. Early this a.m. patient still having respiratory difficulty noted metabolic acidosis with a bicarb level 13, sodium bicarbonate infusion continues. She noticed to have respiratory distress ABGs performed. Impending intubation 7.10. Patient noted to have KAY drain emanating from back with dressing taken down no area redness yellow fluid and KAY drain sent for wound culture analysis. Upon further investigation patient's brother at bedside patient had lumbar hardware removed from [facility] in [place] approximately 6 weeks ago secondary to hardware eroding through the back and could be visualized on site. 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 Gottlieb cultures are pending. Attempts at medical record release forms from [facility] are pending. Patient previously last week at [facility] for acute kidney injury/urinary tract infection, attempting to obtain medical record. Patient was discharged approximately 2-3 days ago per report. This a.m. patient went into A. fib RVR with a heart rate in the 150s patient was given metoprolol 2 doses heart rate 112, patient is known to have chronic atrial fibrillation previously on Cardizem and digoxin 0.125 IV 1 dose Cardizem reinitiated. Discussion with patient regarding intubation and patient' s brother at bedside patient desires aggressive measures be undertaken patient requests intubation if needed and to remain a full code. Noted open areas skin wound areas on the lower extremities well-healed skin graft site left thigh wound care has been consulted. Palliative care also has been consulted to define goals of care. Subjective: 08/05: Patient noted with elevated INR, Coumadin has been discontinued for 2 days. Vitamin K ordered. No active signs of bleeding. Patient on sedation vacation following commands. Afib rate controlled 70's-80's since addition to p.o. Cardizem. Objective Vital Signs Date Time Temp Pulse Resp B/P (MAP) Pulse Ox O2 Delivery O2 Flow Rate FiO2 5/5/18 14:33 98 35 08/06/17 12:00 61 08/06/17 12:00 98.6 140/69 (92) 08/06/17 08:00 15 08/04/17 08:02 Nasal Cannula 2.00 Intake and Output 08/06/17 08/06/17 08/07/17 08:00 16:00 00:00 Intake Total 1368 ml Output Total 380 ml Balance 988 ml Result Diagram: 08/06/17 0451 08/06/17 0451 Other Results Microbiology Date/Time Source Procedure Growth Status 08/03/17 15:55 Urine Catheterized Urine Urine Culture - Final Denise Glabrata Complete Laboratory Tests Test 08/05/17 15:45 08/06/17 04:10 Blood Gas Puncture Site RT RADIAL LT RADIAL Blood Gas Patient Temperature 98.6 98.6 Blood Gas HCO3 27 mmol/L (22-26) 26 mmol/L (22-26) Blood Gas Base Excess 3.9 mmol/L (-2-2) 2.7 mmol/L (-2-2) Blood Gas Oxygen Saturation 93 % (90-100) 94 % (90-100) Arterial Blood pH 7.54 (7.380-7.420) 7.48 (7.380-7.420) Arterial Blood Partial Pressure CO2 31 mmHg (38-42) 36 mmHg (38-42) Arterial Blood Partial Pressure O2 74 mmHg (61-120) 86 mmHg (61-120) Arterial Blood Oxygen Content 12.8 Vol % (12.0-20.0) 14.8 Vol % (12.0-20.0) Arterial Blood Carboxyhemoglobin 1.2 % (0-4) 1.3 % (0-4) Arterial Blood Methemoglobin 1.1 % (0-2) 1.2 % (0-2) Blood Gas Hemoglobin 9.7 G/DL (12.0-16.0) 11.1 G/DL (12.0-16.0) Oxygen Delivery Device VENTILATOR VENTILATOR Blood Gas Ventilator Setting COMMENT Blood Gas Inspired Oxygen 35 % 35 % Imaging Last Impressions Chest X-Ray 08/05/17 0600 Signed Impressions: Service Date/Time: Saturday, August 05, 2017 04:54 - CONCLUSION: Normal placement of nasogastric tube. Grossly stable aeration Sterling Aguilar MD Lumbar Spine CT 08/04/17 0000 Signed Impressions: Service Date/Time: August 13:46 - CONCLUSION: 1. There is low density in the soft tissues at the recent laminectomy site L4-L5 measuring up to 2.4 cm in thickness with out deformity of the posterior thecal sac at the laminectomy site. 2. Stable anterolisthesis at L5-S1 with bony fusion. 3. 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 Maykel Singh MD Abdomen/Pelvis CT 08/04/17 0000 Signed Impressions: Service Date/Time: August 13:46 - CONCLUSION: 1. There is stool diffusely throughout the colon suggesting constipation. 2. The solid organs of the abdomen are grossly intact. 3. No free air free fluid seen within the abdomen. No abscess is identified. 4. Small amount of free fluid within the abdomen. 5. Bilateral pleural effusions and consolidation. 6. Cardiomegaly. 7. 2 mm nonobstructing stone in the lower pole collecting system of the right kidney. 8. Anasarca. Mil Toro MD Abdomen Fluoroscopy 08/04/17 0000 Signed Impressions: Service Date/Time: August 17:00 - CONCLUSION: Uncomplicated nasoenteric suction type catheter (NGT) placement as above. Librado Hernandez MD Last 24 hours Impressions Chest X-Ray 08/03/17 1635 Signed Impressions: Service Date/Time: Thursday, August 03, 2017 17:18 - CONCLUSION: Limited study. However the lungs are grossly clear. Moderate cardiomegaly. Brown Smith MD Procedures 08/04 -placement of NG tube IR Objective Remarks GENERAL: Elderly ill appearing female in moderate distress. Pale. She is sitting leaning to her right side with her neck flexed. SKIN: Pale and diaphoretic. HEAD: Normocephalic. Atraumatic. EYES: Pupils equal and round. No scleral icterus. No injection or drainage. ENT: No nasal bleeding or discharge. Mucous membranes pale. NECK: Trachea midline. Full range of motion without pain.. CARDIOVASCULAR: Rapid rate at about 150 with an irregular rhythm. RESPIRATORY: She is very tachypneic. Her sats on oxygen or in the upper 90s. Her lungs sound clear anteriorly. GASTROINTESTINAL: Abdomen soft. Nontender. Bowel sounds present. Nondistended. : Simpson catheter is in place. MUSCULOSKELETAL: KAY drain coming from the thoracic spine. It is draining purulent material. NEUROLOGICAL: Awake and alert. No obvious cranial nerve deficits. Motor grossly within normal limits. Normal speech. Date of Insertion: August 04, 2017 A/P Problem List: (1) Afib ICD Code: I48.91 - Unspecified atrial fibrillation Status: Acute (2) EMIR (acute kidney injury) ICD Code: N17.9 - Acute kidney failure, unspecified Status: Acute (3) CKD (chronic kidney disease) stage 4, GFR 15-29 ml/min ICD Code: N18.4 - Chronic kidney disease, stage 4 (severe) Status: Acute (4) Renal insufficiency ICD Code: N28.9 - Disorder of kidney and ureter, unspecified Status: Acute (5) Chronic pain ICD Code: G89.29 - Other chronic pain Status: Acute (6) Atrial fibrillation with RVR ICD Code: I48.91 - Unspecified atrial fibrillation Status: Acute (7) Hyperkalemia ICD Code: E87.5 - Hyperkalemia Status: Acute (8) Severe sepsis ICD Code: A41.9 - Sepsis, unspecified organism; R65.20 - Severe sepsis without septic shock (9) Metabolic acidosis ICD Code: E87.2 - Acidosis Status: Acute (10) Hypoglycemia ICD Code: E16.2 - Hypoglycemia, unspecified Status: Acute (11) Cardiomegaly ICD Code: I51.7 - Cardiomegaly Status: Acute Assessment and Plan Plan by systems: Neurologic: Chronic pain syndrome Status post removal of spinal hardware 06/19 Neuro checks per ICU protein Daily sedation vacation Avoid sedative type medication Fentanyl infusion to maintain ventilator synchrony Acetaminophen 650 mg every 6 hours as needed for temperature greater than 101.5 Respiratory: Acute hypercapnic respiratory failure Mild pulmonary hypertension COPD ABGs and chest x-rays as clinically indicated Ventilator bundle Begin CPAP trials Schedule duo nebs every 6 hours, and every 2 hours as needed Repeat ABG-7.4 //2/ Continue Fluticasone home medication Cardiovascular: A. fib RVR-resolved History of hypertension Congestive heart failure Chronic atrial fibrillation Metoprolol 5 mg IV PRN Digoxin 0.125 mg IV 1 dose Begin Cardizem 60 mg every 8 hours, since home medicines include Cardizem CD 08/05 Echo- The left ventricular systolic function is moderately reduced with an estimated ejection fraction in the range of 40-45%. Dyskinetic apical cap wall motion. The right ventricle is moderately dilated. Moderate mitral valve regurgitation. Aortic valve sclerosis is present. There is mild to moderate tricuspid valve regurgitation. There is estimated mild pulmonary hypertension present (range 40-50 mmHg). BNP 4339-> 964 Initial troponin 0.7 continue to trend-possible elevation secondary to infection , and renal insufficiency Patient normally on Coumadin therapy INR initial noted to be 6.1- with elevation to 11.0 on 08/05 Vit K administered 08/06 INR 2.1 Renal: Renal insufficiency Maintain Simpson -- Strict I/Os FEN/GI: CKD stage IV Acute on chronic kidney injury UTI Lactic acidemia-resolved Severe metabolic acidosis-resolved Electrolyte derangement Monitor BMP 08/06 Discontinue IV fluids UTI -see below Jevity 1.5 10cc/hr advanced to goal rate of 30 cc an hour 08/05 Difficult NG tube placement, placed by IR Hypocalcemia-calcium gluconate 1 g Hypomagnesia-mag 1 g Heme/ID: Anemia of chronic disease MRSA Discitis Coagulopathy Monitor CBC ID following-Atrezonam, daptomycin, Rocephin Follow-up blood and urine cultures 08/05 Supratherapeutic INR-patient is on Coumadin, INR noted to be 11.0, vitamin K 10 mg IV Daptomycin for MRSA bacteremia on hold-need renal adjustment defer to ID to continue or change to different medication Transfuse for hemoglobin less than 7.0 Medical records release obtained for medical records at [facility] Obtain CT abdomen and pelvis and lumbar spine Obtain wound culture and Gram stain, fungal culture from KAY drain Monitor lactate levels until cleared 08/06 UTI -Denise-Diflucan 200mg/d 08/04- Blood Cultures -NGTD Endocrine: Hypoglycemia-resolved Glucose monitoring per ICU protocol -- SSI Prophylaxis: GI Prophylaxis Famotidine BID DVT Prophylaxis -- SCDs Heparin continues to be on hold. Patient normally on Coumadin therapy for A. fib. INR 2.1 Lines: PICC line in situ left forearm good blood return, peripheral IV x1. Central line if indicated Dispo: Palliative care is following. I discussed and provided medical update to patient's brother Mr. Nicolas. The patient is a 9/RN desires aggressive measures. Full CODE STATUS in place. my billing statement This patient remains critically ill with one or more organ systems which are or may become a threat to life. I have spent in excess of 30 minutes discontinuously in the care and management of this patient. This time is exclusive of procedures, and includes, but is not limited to, evaluation of the patient, review of the medical record, discussions with family, consultants, nursing staff, or respiratory therapy, and documentation in the medical record. Physician Celia Malik MD August 06, 2017 14:59
[2017-08-06] MEDS: FLUCONAZOLE 200 MG PREMIX BAG 100 ML IV SCH (15:53)
[2017-08-06] MEDS ORDERED: CALCIUM GLUCONATE INJ 2 GM in SODIUM CHLORIDE 0.9% INJ 100 ML IV ONE (16:00)
[2017-08-06] MEDS ORDERED: WARFARIN SOD 1 MG TAB PO SCH (16:00)
[2017-08-07] VITALS (21 sets, daily range): BP systolic 121–162; BP diastolic 58–88; PULSE 52–90; RESP 15–23; TEMP 98.6–100.5; O2SAT 96–98
[2017-08-07] MEDS: CHLORHEXIDINE GLUCONATE 2 % 1 PACK (2 CLOTHS) TOP SCH (03:16)
[2017-08-07] MEDS: RESP: IPRATROPIUM 0.5 MG/2.5 ML NEB NEB SCH ×4 (03:45→21:36)
--- NOTE | 2017-08-07 04:02 | RADRPT ---
EXAM DATE/TIME: 08/07/2017 03:10 [facility] COMPARISON: CHEST SINGLE AP, August 06, 2017, 3:13. INDICATIONS : Shortness of breath, possible pulmonary disease. MEDICAL HISTORY : Cardiovascular disease. Gastroesophageal reflux disease. SURGICAL HISTORY : Appendectomy. Hysterectomy. ENCOUNTER: Subsequent ACUITY: 1 week PAIN SCORE: Non-responsive. LOCATION: Bilateral chest FINDINGS: Endotracheal tube and nasogastric tube remain in place. Accounting for differences in projection, no significant change in bilateral infiltrates. Cardiac contours are grossly stable. CONCLUSION: No significant change Sterling Aguilar MD on August 07, 2017 at 4:00 Board Certified Radiologist. This report was verified electronically.
[2017-08-07] MEDS: AZTREONAM INJ 1,000 MG in SODIUM CHLORIDE 0.9% INJ 100 ML IV SCH (05:09)
[2017-08-07] MEDS: DILTIAZEM HCL 60 MG TAB PO SCH ×3 (05:09→20:56)
[2017-08-07] MEDS: SODIUM CHLORIDE 0.9% FLUSH 10 ML FLUSH IV FLUSH SCH ×5 (05:09→20:57)
[2017-08-07 05:48] LABS: AUTOMATED NEUTROPHIL # 8.2 TH/MM3 (1.8-7.7); BASOPHIL % 0.1 % (0.0-2.0); EOSINOPHIL # 0.1 TH/MM3 (0-0.4); EOSINOPHIL % 1.4 % (0.0-4.0); HEMATOCRIT 29.4 % (35.0-46.0); HEMOGLOBIN 9.9 GM/DL (11.6-15.3); LYMPH % 4.2 % (9.0-44.0); LYMPHOCYTE # 0.4 TH/MM3 (1.0-4.8); MEAN CELL VOLUME 95.8 FL (80.0-100.0); MEAN CORPUSCULAR HEMOGLOBIN 32.2 PG (27.0-34.0); MEAN CORPUSCULAR HGB CONC 33.6 % (32.0-36.0); MEAN PLATELET VOLUME 8.7 FL (7.0-11.0); MONOCYTE # 0.6 TH/MM3 (0-0.9); NEUT % 88.3 % (16.0-70.0); PLATELET COUNT 144 TH/MM3 (150-450); RED BLOOD COUNT 3.07 MIL/MM3 (4.00-5.30); RED CELL DISTRIBUTION WIDTH 17.8 % (11.6-17.2); WHITE BLOOD COUNT 9.3 TH/MM3 (4.0-11.0)
[2017-08-07 05:52] LABS: INTERNATIONAL NORMALIZED RATIO 1.7 RATIO; PROTHROMBIN TIME - PATIENT 17.4 SEC (9.8-11.6)
[2017-08-07 06:00] LABS: ALBUMIN 1.7 GM/DL (3.4-5.0); AST (GOT) 722 U/L (15-37); BICARBONATE 26.8 MEQ/L (21.0-32.0); BLOOD UREA NITROGEN 60 MG/DL (7-18); CALCIUM 7.7 MG/DL (8.5-10.1); CHLORIDE 105 MEQ/L (98-107); CREATININE 2.76 MG/DL (0.50-1.00); GLUCOSE,RANDOM 135 MG/DL (74-106); MAGNESIUM 1.9 MG/DL (1.5-2.5); SODIUM (NA) 141 MEQ/L (136-145)
[2017-08-07 06:08] LABS: ALKALINE PHOSPHATASE 189 U/L (45-117); ALT (GPT) 1092 U/L (10-53); PHOSPHORUS 3.4 MG/DL (2.5-4.9); TOTAL BILIRUBIN ADULT 0.8 MG/DL (0.2-1.0); TOTAL PROTEIN 6.7 GM/DL (6.4-8.2)
[2017-08-07] MEDS: fentaNYL DRIP 250 ML IV PRN (09:07)
[2017-08-07] MEDS: LACTULOSE SYRUP 20 GM/30 ML CUP PO SCH ×2 (09:07→20:56)
[2017-08-07] MEDS: FLUTICASONE PROPIONATE 50 MCG/ACT 16 GM NASAL SPRAY EACH NARE SCH (09:08)
[2017-08-07] MEDS: ASCORBIC ACID 500 MG TAB PO SCH (09:08)
[2017-08-07] MEDS: DOCUSATE SODIUM 50 MG/SENNA 8.6 MG TAB PO SCH ×2 (09:08→20:56)
[2017-08-07] MEDS: ZINC SULFATE 220 MG CAP PO SCH (09:08)
[2017-08-07] MEDS: FAMOTIDINE 20 MG TAB PO SCH ×2 (09:08→20:56)
[2017-08-07] MEDS: CHLORHEXIDINE 0.12% (ORAL KIT) 15 ML CUP MT SCH ×2 (09:09→20:57)
[2017-08-07] MEDS ORDERED: ACETAMINOPHEN 650 MG/20.3 ML UDC PO PRN (14:00)
--- NOTE | 2017-08-07 14:27 | HHI.CCPN ---
Subjective Remarks/Hospital Course 76-year-old female [facility] the [facility] presents with complaints of respiratory difficulty. Onset was today. She is also complaining with some chest discomfort. She denies productive cough. Her symptoms are moderate to severe with no exacerbating factors. This patient was reportedly just discharged from [facility] with discitis secondary to MRSA. 5/3: Afebrile. Early this a.m. patient still having respiratory difficulty noted metabolic acidosis with a bicarb level 13, sodium bicarbonate infusion continues. She noticed to have respiratory distress ABGs performed. Impending intubation 7.10. Patient noted to have KAY drain emanating from back with dressing taken down no area redness yellow fluid and KAY drain sent for wound culture analysis. Upon further investigation patient's brother at bedside patient had lumbar hardware removed from [facility] in [place] approximately 6 weeks ago secondary to hardware eroding through the back and could be visualized on site. 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 Gottlieb cultures are pending. Attempts at medical record release forms from [facility] are pending. Patient previously last week at [facility] for acute kidney injury/urinary tract infection, attempting to obtain medical record. Patient was discharged approximately 2-3 days ago per report. This a.m. patient went into A. fib RVR with a heart rate in the 150s patient was given metoprolol 2 doses heart rate 112, patient is known to have chronic atrial fibrillation previously on Cardizem and digoxin 0.125 IV 1 dose Cardizem reinitiated. Discussion with patient regarding intubation and patient' s brother at bedside patient desires aggressive measures be undertaken patient requests intubation if needed and to remain a full code. Noted open areas skin wound areas on the lower extremities well-healed skin graft site left thigh wound care has been consulted. Palliative care also has been consulted to define goals of care. 54: Patient noted with elevated INR, Coumadin has been discontinued for 2 days. Vitamin K ordered. No active signs of bleeding. Patient on sedation vacation following commands. Afib rate controlled 70's-80's since addition to p.o. Cardizem. Subjective: 5/6: Patient is currently on PSV trial FiO2 35%. Minimal secretions. Tolerating tube feeds. No bowel movement yesterday. Follows commands. Objective Vital Signs Date Time Temp Pulse Resp B/P (MAP) Pulse Ox O2 Delivery O2 Flow Rate FiO2 08/07/17 13:29 97 35 08/07/17 10:00 68 08/07/17 08:00 98.6 18 160/73 (102) 08/04/17 08:02 Nasal Cannula 2.00 Intake and Output 08/07/17 08/07/17 08/08/17 08:00 16:00 00:00 Intake Total 383 ml Output Total 678 ml Balance -295 ml Result Diagram: 08/07/17 0500 08/07/17 0500 Other Results Microbiology Date/Time Source Procedure Growth Status 08/03/17 20:00 Blood Peripheral Aerobic Blood Culture - Preliminary NO GROWTH IN 4 DAYS Resulted 08/03/17 20:00 Blood Peripheral Anaerobic Blood Culture - Preliminary NO GROWTH IN 4 DAYS Resulted 08/03/17 15:55 Urine Catheterized Urine Urine Culture - Final Denise Glabrata Complete Imaging Last Impressions Chest X-Ray 08/07/17 0600 Signed Impressions: Service Date/Time: Monday, August 07, 2017 03:10 - CONCLUSION: No significant change Sterling Aguilar MD Lumbar Spine CT 08/04/17 0000 Signed Impressions: Service Date/Time: August 13:46 - CONCLUSION: 1. There is low density in the soft tissues at the recent laminectomy site L4-L5 measuring up to 2.4 cm in thickness with out deformity of the posterior thecal sac at the laminectomy site. 2. Stable anterolisthesis at L5-S1 with bony fusion. 3. 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 Maykel Singh MD Abdomen/Pelvis CT 08/04/17 0000 Signed Impressions: Service Date/Time: August 13:46 - CONCLUSION: 1. There is stool diffusely throughout the colon suggesting constipation. 2. The solid organs of the abdomen are grossly intact. 3. No free air free fluid seen within the abdomen. No abscess is identified. 4. Small amount of free fluid within the abdomen. 5. Bilateral pleural effusions and consolidation. 6. Cardiomegaly. 7. 2 mm nonobstructing stone in the lower pole collecting system of the right kidney. 8. Anasarca. Mil Toro MD Abdomen Fluoroscopy 08/04/17 0000 Signed Impressions: Service Date/Time: August 17:00 - CONCLUSION: Uncomplicated nasoenteric suction type catheter (NGT) placement as above. Librado Hernandez MD Procedures 08/04 -placement of NG tube IR Objective Remarks GENERAL: 76-year-old elderly ill appearing female in moderate distress. Pale. She is sitting leaning to her right side with her neck flexed. SKIN: Pale and diaphoretic. HEAD: Normocephalic. Atraumatic. EYES: Pupils equal and round. No scleral icterus. No injection or drainage. ENT: No nasal bleeding or discharge. Mucous membranes are now moist and pink. NECK: Trachea midline. Full range of motion without pain.. CARDIOVASCULAR: IRR. S1, S2. No S4. RESPIRATORY: Essentially clear to auscultation anteriorly/posteriorly without wheezing GASTROINTESTINAL: Abdomen soft. Nontender. Bowel sounds present. Nondistended. : Simpson catheter is in place. MUSCULOSKELETAL: KAY drain lower spine. NEUROLOGICAL: Awake and alert. No obvious cranial nerve deficits. Motor grossly within normal limits. Normal speech. Date of Insertion: August 04, 2017 A/P Assessment and Plan Neuro/Psych: Chronic pain syndrome Status post removal of lumbar/sacral L5/S1 hardware 06/19 Chronic opioid use Patient is currently on a fentanyl drip at 100 mcg there are for sedation/ analgesia while intubated Goal of RA SS -2 Neuro checks per ICU protocol Daily sedation vacation Acetaminophen 650 mg every 6 hours as needed for temperature greater than 101.5 Cyclobenzaprine 10 mg 3 times daily as needed muscle relaxant Morphine sulfate 15 mg every 4 hours as needed pain currently being held Respiratory: Acute hypercapnic respiratory failure Mild pulmonary hypertension COPD/asthma Currently PSV trial 01/06 at 35% Ventilator bundle Ipratropium aerosols every 6 hours Albuterol allergy/allergic to Combivent secondary to albuterol only. When clinically indicated resume nasal fluticasone home medication Cardiovascular: A. fib RVR-resolved History of essential hypertension Chronic systolic congestive heart failure Chronic atrial fibrillation Cardizem 60 mg every 8 hours, since home medicines include Cardizem CD 08/05 Echo- The left ventricular systolic function is moderately reduced with an estimated ejection fraction in the range of 40-45%. Dyskinetic apical cap wall motion. The right ventricle is moderately dilated. Moderate mitral valve regurgitation. Aortic valve sclerosis is present. There is mild to moderate tricuspid valve regurgitation. There is estimated mild pulmonary hypertension present (range 40-50 mmHg). BNP 4339->800 Home medications include isosorbide dinitrate 30 mg daily, metoprolol succinate 50 mg daily lisinopril 2.5 mg daily. These are currently on hold Initial troponin 0.7 continue to trend-possible elevation secondary to infection , and renal insufficiency Patient normally on Coumadin therapy INR initial noted to be 6.1- with elevation to 11.0 on 08/05 Vit K administered 08/06 INR 1.7 Renal: Acute renal insufficiency incentive chronic kidney disease stage IV Right renal stone/no hydronephrosis Maintain Simpson -- Strict I/Os Creatinine currently 2.76. FEN/GI: Monitor BMP Supplying a goal 35 cc per nutrition's recommendation 08/05 Difficult NG tube placement, placed by IR Replace electrolytes as clinically indicated Famotidine 10 mg twice daily for GI prophylaxis. Docusate sodium/senna 1 tablet twice daily, lactulose 30 cc twice daily for bowel regimen CT abdomen revealed constipation and right renal stone Heme/ID: Anemia of chronic disease Thrombocytopenia MRSA Discitis Chronic warfarin use Funguria Monitor CBC ID following-Atrezonam, daptomycin, fluconazole Follow-up blood and urine cultures 08/05 Supratherapeutic INR-patient is on Coumadin, INR noted to be 11.0, vitamin K 10 mg IV. Daptomycin for MRSA bacteremia on hold-need renal adjustment defer to ID to continue or change to different medication Transfuse for hemoglobin less than 7.0 Medical records release obtained for medical records at [facility] - The patient has a history of recent surgery at [facility] in [place]. She underwent removal of hardware from the lumbosacral spine L1-S1 because of exposed loosened hardware from prior surgery. She reportedly had surgery of the lumbosacral spine 10 years prior. The surgery at [facility] was on 06/27. Intraoperative culture reportedly had MRSA. She was put on antibiotics by infectious disease to complete on 07/29/2017. She was receiving intravenous vancomycin. The patient completed the course of the vancomycin. There is a notation in the medical record that she is ALLERGIC TO VANCOMYCIN. She is currently on daptomycin. She continues with a drainage catheter in the lumbosacral region from prior surgery. She was seen by infectious disease physician at [facility] and reportedly will be in need of IV antibiotics for 6 weeks because of osteomyelitis of the lumbar spine. Obtain CT abdomen and pelvis and lumbar spine Obtain wound culture and Gram stain, fungal culture from KAY drain still pending 08/06 UTI -Denise-fluconazole 200mg/d 08/04- Blood Cultures -NGTD Endocrine: Hypoglycemia-resolved Glucose monitoring per ICU protocol -- SSI Prophylaxis: GI Prophylaxis Famotidine BID DVT Prophylaxis -- SCDs Heparin continues to be on hold. Patient normally on warfarin therapy for A. fib. INR 1.7 Lines: PICC line in situ left forearm good blood return, peripheral IV x1. Central line if indicated Level 2 follow-up Jhonatan Chavira MD August 07, 2017 14:27
[2017-08-07] MEDS: FLUCONAZOLE 200 MG PREMIX BAG 100 ML IV SCH (15:36)
[2017-08-07] MEDS: ARTIFICIAL TEARS OPTH SOLN 15 ML BTL EACH EYE SCH ×2 (15:41→20:57)
[2017-08-07] MEDS ORDERED: WARFARIN SOD 1 MG TAB PO SCH (16:00)
[2017-08-07] MEDS: MUPIROCIN 2% OINT 1 APPLIC/GM SYR EACH NARE SCH (20:56)
[2017-08-08] VITALS (21 sets, daily range): BP systolic 141–172; BP diastolic 67–81; PULSE 74–118; RESP 0–28; TEMP 98.6–99.9; O2SAT 81–98
[2017-08-08] MEDS: fentaNYL DRIP 250 ML IV PRN ×2 (00:57→18:12)
[2017-08-08] MEDS: RESP: IPRATROPIUM 0.5 MG/2.5 ML NEB NEB SCH ×3 (04:07→22:19)
[2017-08-08] MEDS: DILTIAZEM HCL 60 MG TAB PO SCH ×3 (05:10→21:35)
[2017-08-08] MEDS: AZTREONAM INJ 1,000 MG in SODIUM CHLORIDE 0.9% INJ 100 ML IV SCH ×2 (05:11→16:18)
[2017-08-08] MEDS: ARTIFICIAL TEARS OPTH SOLN 15 ML BTL EACH EYE SCH ×3 (05:11→21:35)
[2017-08-08] MEDS: CHLORHEXIDINE GLUCONATE 2 % 1 PACK (2 CLOTHS) TOP SCH (05:11)
[2017-08-08] MEDS: SODIUM CHLORIDE 0.9% FLUSH 10 ML FLUSH IV FLUSH SCH ×5 (05:12→21:36)
--- NOTE | 2017-08-08 05:14 | RADRPT ---
EXAM DATE/TIME: 08/08/2017 04:32 [facility] COMPARISON: CHEST SINGLE AP, August 07, 2017, 3:10. INDICATIONS : Shortness of breath, possible pulmonary disease. MEDICAL HISTORY : Cardiovascular disease. Gastroesophageal reflux disease. SURGICAL HISTORY : Appendectomy. Hysterectomy. ENCOUNTER: Subsequent ACUITY: 1 week PAIN SCORE: Non-responsive. LOCATION: Bilateral chest FINDINGS: Dense area overlies the right shoulder could be a large area of calcification or persistent IV contra st s/p extravasation. A single view of the chest demonstrates moderate-sized bilateral pleural effusions. The heart is enla rged. Diffuse patchy airspace disease is unchanged. The cardiomediastinal contours are unremarkable. Osseous structures are intact. CONCLUSION: Significant consolidation throughout both lungs. Cardiomegaly and pleural effusions persist.. Joseph Toro MD on August 08, 2017 at 5:11 Board Certified Radiologist. This report was verified electronically.
[2017-08-08 05:42] LABS: AUTOMATED NEUTROPHIL # 14.8 TH/MM3 (1.8-7.7); BASOPHIL % 0.3 % (0.0-2.0); EOSINOPHIL # 0.1 TH/MM3 (0-0.4); EOSINOPHIL % 0.5 % (0.0-4.0); HEMATOCRIT 29.2 % (35.0-46.0); HEMOGLOBIN 9.9 GM/DL (11.6-15.3); LYMPH % 1.6 % (9.0-44.0); LYMPHOCYTE # 0.3 TH/MM3 (1.0-4.8); MEAN CORPUSCULAR HEMOGLOBIN 32.5 PG (27.0-34.0); MEAN CORPUSCULAR HGB CONC 33.9 % (32.0-36.0); MEAN PLATELET VOLUME 8.2 FL (7.0-11.0); MONO % 6.6 % (0.0-8.0); MONOCYTE # 1.1 TH/MM3 (0-0.9); PLATELET COUNT 143 TH/MM3 (150-450); RED BLOOD COUNT 3.04 MIL/MM3 (4.00-5.30); RED CELL DISTRIBUTION WIDTH 17.6 % (11.6-17.2); WHITE BLOOD COUNT 16.3 TH/MM3 (4.0-11.0)
[2017-08-08 05:59] LABS: INTERNATIONAL NORMALIZED RATIO 2.7 RATIO; PROTHROMBIN TIME - PATIENT 27.5 SEC (9.8-11.6)
[2017-08-08 06:07] LABS: ALBUMIN 1.7 GM/DL (3.4-5.0); ALT (GPT) 747 U/L (10-53); AST (GOT) 256 U/L (15-37); BICARBONATE 27.4 MEQ/L (21.0-32.0); BLOOD UREA NITROGEN 58 MG/DL (7-18); CALCIUM 7.5 MG/DL (8.5-10.1); CHLORIDE 106 MEQ/L (98-107); CHOLESTEROL 69 MG/DL (120-200); CREATININE 2.94 MG/DL (0.50-1.00); GLOMERULAR FILTRATION RATE 16 ML/MIN (>89); GLUCOSE,RANDOM 143 MG/DL (74-106); MAGNESIUM 1.8 MG/DL (1.5-2.5); PHOSPHORUS 3.4 MG/DL (2.5-4.9); SODIUM (NA) 143 MEQ/L (136-145); TRIGLYCERIDES 84 MG/DL (42-150)
[2017-08-08 06:10] LABS: ALKALINE PHOSPHATASE 184 U/L (45-117); CHOLESTEROL/ HDL RATIO 3.87 RATIO; HDL CHOLESTEROL 17.8 MG/DL (40.0-60.0); LDL CHOLESTEROL 34 MG/DL (0-99); TOTAL BILIRUBIN ADULT 0.8 MG/DL (0.2-1.0); TOTAL PROTEIN 7.2 GM/DL (6.4-8.2)
[2017-08-08] MEDS: CHLORHEXIDINE 0.12% (ORAL KIT) 15 ML CUP MT SCH ×2 (08:00→21:35)
[2017-08-08] MEDS: MUPIROCIN 2% OINT 1 APPLIC/GM SYR EACH NARE SCH ×2 (08:32→21:35)
[2017-08-08] MEDS: LACTULOSE SYRUP 20 GM/30 ML CUP PO SCH ×2 (08:32→20:52)
[2017-08-08] MEDS: ZINC SULFATE 220 MG CAP PO SCH (08:32)
[2017-08-08] MEDS: DOCUSATE SODIUM 50 MG/SENNA 8.6 MG TAB PO SCH ×2 (08:32→20:53)
[2017-08-08] MEDS: ASCORBIC ACID 500 MG TAB PO SCH (08:32)
[2017-08-08] MEDS: FAMOTIDINE 20 MG TAB PO SCH ×2 (08:33→21:35)
--- NOTE | 2017-08-08 10:39 | HHI.CCPN ---
Subjective Remarks/Hospital Course 76-year-old female resident of the longterm presents with complaints of respiratory difficulty. Onset was today. She is also complaining with some chest discomfort. She denies productive cough. Her symptoms are moderate to severe with no exacerbating factors. This patient was reportedly just discharged from [facility] with discitis secondary to MRSA. 53: Afebrile. Early this a.m. patient still having respiratory difficulty noted metabolic acidosis with a bicarb level 13, sodium bicarbonate infusion continues. She noticed to have respiratory distress ABGs performed. Impending intubation 7.10. Patient noted to have KAY drain emanating from back with dressing taken down no area redness yellow fluid and KAY drain sent for wound culture analysis. Upon further investigation patient's brother at bedside patient had lumbar hardware removed from [facility] in [place] approximately 6 weeks ago secondary to hardware eroding through the back and could be visualized on site. 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 Gottlieb cultures are pending. Attempts at medical record release forms from [facility] are pending. Patient previously last week at [facility] for acute kidney injury/urinary tract infection, attempting to obtain medical record. Patient was discharged approximately 2-3 days ago per report. This a.m. patient went into A. fib RVR with a heart rate in the 150s patient was given metoprolol 2 doses heart rate 112, patient is known to have chronic atrial fibrillation previously on Cardizem and digoxin 0.125 IV 1 dose Cardizem reinitiated. Discussion with patient regarding intubation and patient' s brother at bedside patient desires aggressive measures be undertaken patient requests intubation if needed and to remain a full code. Noted open areas skin wound areas on the lower extremities well-healed skin graft site left thigh wound care has been consulted. Palliative care also has been consulted to define goals of care. 08/05: Patient noted with elevated INR, Coumadin has been discontinued for 2 days. Vitamin K ordered. No active signs of bleeding. Patient on sedation vacation following commands. Afib rate controlled 70's-80's since addition to p.o. Cardizem. 6: Patient is currently on PSV trial FiO2 35%. Minimal secretions. Tolerating tube feeds. No bowel movement yesterday. Follows commands. Subjective: 08/08: Temperature currently 98.8. Adequate weaning parameters however no cough leak. We will give dexamethasone 1 day and recheck cuff leak in a.m. Awake and follows commands. Transaminases normalized. Creatinine continues to slowly rise. Objective Vital Signs Date Time Temp Pulse Resp B/P (MAP) Pulse Ox O2 Delivery O2 Flow Rate FiO2 08/08/17 08:00 35 08/08/17 08:00 98.8 83 16 172/81 (111) 96 08/04/17 08:02 Nasal Cannula 2.00 Intake and Output 08/08/17 08/08/17 08/08/17 07:59 15:59 23:59 Intake Total 692 ml Output Total 1400 ml Balance -708 ml Result Diagram: 08/08/17 0535 08/08/17 0535 Other Results Microbiology Date/Time Source Procedure Growth Status 08/03/17 20:00 Blood Peripheral Aerobic Blood Culture - Preliminary NO GROWTH IN 4 DAYS Resulted 08/03/17 20:00 Blood Peripheral Anaerobic Blood Culture - Preliminary NO GROWTH IN 4 DAYS Resulted 08/03/17 15:55 Urine Catheterized Urine Urine Culture - Final Denise Glabrata Complete Imaging Last Impressions Chest X-Ray 08/08/17 0600 Signed Impressions: Service Date/Time: Tuesday, August 08, 2017 04:32 - CONCLUSION: Significant consolidation throughout both lungs. Cardiomegaly and pleural effusions persist.. Joseph Toro MD Lumbar Spine CT 08/04/17 0000 Signed Impressions: Service Date/Time: August 13:46 - CONCLUSION: 1. There is low density in the soft tissues at the recent laminectomy site L4-L5 measuring up to 2.4 cm in thickness with out deformity of the posterior thecal sac at the laminectomy site. 2. Stable anterolisthesis at L5-S1 with bony fusion. 3. 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 Maykel Singh MD Abdomen/Pelvis CT 08/04/17 0000 Signed Impressions: Service Date/Time: August 13:46 - CONCLUSION: 1. There is stool diffusely throughout the colon suggesting constipation. 2. The solid organs of the abdomen are grossly intact. 3. No free air free fluid seen within the abdomen. No abscess is identified. 4. Small amount of free fluid within the abdomen. 5. Bilateral pleural effusions and consolidation. 6. Cardiomegaly. 7. 2 mm nonobstructing stone in the lower pole collecting system of the right kidney. 8. Anasarca. Mil Toro MD Abdomen Fluoroscopy 08/04/17 0000 Signed Impressions: Service Date/Time: August 17:00 - CONCLUSION: Uncomplicated nasoenteric suction type catheter (NGT) placement as above. Librado Hernandez MD Procedures 08/04 -placement of NG tube IR Objective Remarks GENERAL: 76-year-old elderly ill appearing female in moderate distress. Pale. She is sitting leaning to her right side with her neck flexed. SKIN: Pale and diaphoretic. HEAD: Normocephalic. Atraumatic. EYES: Pupils equal and round. No scleral icterus. No injection or drainage. ENT: No nasal bleeding or discharge. Mucous membranes are now moist and pink. NECK: Trachea midline. Full range of motion without pain.. CARDIOVASCULAR: IRR. S1, S2. No S4. RESPIRATORY: Essentially clear to auscultation anteriorly/posteriorly without wheezing GASTROINTESTINAL: Abdomen soft. Nontender. Bowel sounds present. Nondistended. : Simpson catheter is in place. MUSCULOSKELETAL: KAY drain lower spine. NEUROLOGICAL: Awake and alert. No obvious cranial nerve deficits. Motor grossly within normal limits. Normal speech. Urinary Catheter: Yes Assessment to: Continue Simpson insert reason: Prolonged Immobilization Date of Insertion: August 04, 2017 Vascular Central Line Catheter: No Assessment to: Continue A/P Assessment and Plan Neuro/Psych: Chronic pain syndrome Status post removal of lumbar/sacral L5/S1 hardware 06/19 Chronic opioid use Patient is currently on a fentanyl drip at 100 mcg there are for sedation/ analgesia while intubated Goal of RASS -2 Neuro checks per ICU protocol Daily sedation vacation Acetaminophen 650 mg every 6 hours as needed for temperature greater than 101.5 Cyclobenzaprine 10 mg 3 times daily as needed muscle relaxant Morphine sulfate 15 mg every 4 hours as needed pain currently being held Respiratory: Acute hypercapnic respiratory failure Mild pulmonary hypertension COPD/asthma Currently PSV trial 10/5 at 35% Ventilator bundle Ipratropium aerosols every 6 hours Albuterol allergy/allergic to Combivent secondary to albuterol only. When clinically indicated resume nasal fluticasone home medication RSBI was 40. Great tidal volumes. However, no cuff leak. Will give dexamethasone 4 mg IV every 6 hours 4 dosages and reattempt spontaneous bleeding trials in a.m. Cardiovascular: A. yani RVR-resolved History of essential hypertension Chronic systolic congestive heart failure Chronic atrial fibrillation Cardizem 60 mg every 8 hours, since home medicines include Cardizem CD 08/05 Echo- The left ventricular systolic function is moderately reduced with an estimated ejection fraction in the range of 40-45%. Dyskinetic apical cap wall motion. The right ventricle is moderately dilated. Moderate mitral valve regurgitation. Aortic valve sclerosis is present. There is mild to moderate tricuspid valve regurgitation. There is estimated mild pulmonary hypertension present (range 40-50 mmHg). BNP [id number]->[id number] Home medications include isosorbide dinitrate 30 mg daily, metoprolol succinate 50 mg daily lisinopril 2.5 mg daily. These are currently on hold Initial troponin 0.7 continue to trend-possible elevation secondary to infection , and renal insufficiency Patient normally on Coumadin therapy INR initial noted to be 6.1- with elevation to 11.0 on 08/05 Vit K administered 08/08 INR 2.7 Renal: Acute renal insufficiency incentive chronic kidney disease stage IV Right renal stone/no hydronephrosis Maintain Simpson -- Strict I/Os Creatinine currently 2.93. FEN/GI: Monitor BMP Supplying a goal 35 cc per nutrition's recommendation 08/05 Difficult NG tube placement, placed by IR Replace electrolytes as clinically indicated Famotidine 10 mg twice daily for GI prophylaxis. Docusate sodium/senna 1 tablet twice daily, lactulose 30 cc twice daily for bowel regimen CT abdomen revealed constipation and right renal stone Heme/ID: Anemia of chronic disease Thrombocytopenia Leukocytosis MRSA Discitis Chronic warfarin use Funguria Monitor CBC ID following-Atrezonam, daptomycin, fluconazole Follow-up blood and urine cultures 08/05 Supratherapeutic INR-patient is on Coumadin, INR noted to be 11.0, vitamin K 10 mg IV. Daptomycin for MRSA bacteremia on hold-need renal adjustment defer to ID to continue or change to different medication Transfuse for hemoglobin less than 7.0 Medical records release obtained for medical records at [facility]/[place] and [facility] - The patient has a history of recent surgery at [facility] in [place]. She underwent removal of hardware from the lumbosacral spine L1-S1 because of exposed loosened hardware from prior surgery. She reportedly had surgery of the lumbosacral spine 10 years prior. The surgery at [facility] was on 06/27. Intraoperative culture reportedly had MRSA. She was put on antibiotics by infectious disease to complete on 07/29/2017. She was receiving intravenous vancomycin. The patient completed the course of the vancomycin. There is a notation in the medical record that she is ALLERGIC TO VANCOMYCIN. She is currently on daptomycin. She continues with a drainage catheter in the lumbosacral region from prior surgery. She was seen by infectious disease physician at [facility] and reportedly will be in need of IV antibiotics for 6 weeks because of osteomyelitis of the lumbar spine. Obtain CT abdomen and pelvis and lumbar spine Obtain wound culture and Gram stain, fungal culture from KAY drain still pending 08/06 UTI -Denise-fluconazole 200mg/d 08/04- Blood Cultures -NGTD Endocrine: Hypoglycemia-resolved Glucose monitoring per ICU protocol -- SSI Prophylaxis: GI Prophylaxis Famotidine BID DVT Prophylaxis -- SCDs Heparin continues to be on hold. Patient normally on warfarin therapy for A. fib. INR 2.7 Lines: PICC line in situ left forearm good blood return, peripheral IV x1. Central line if indicated Level 2 follow-up Discussed with brother Jose. 08/08. Care plan discussed and all questions answered. Jhonatan Chavira MD August 08, 2017 10:39
[2017-08-08] MEDS: DEXAMETHASONE SOD PHOS 4 MG/ML VIAL IV PUSH SCH ×2 (10:55→18:12)
[2017-08-08] MEDS: DAPTOmycin INJ 500 MG in SODIUM CHLORIDE 0.9% INJ 100 ML IV SCH (10:56)
--- NOTE | 2017-08-08 12:38 | HHI.HCPN ---
Reason for visit a. To assist with evaluation and management of symptoms including: dyspnea, pain b. To assist medical decision maker(s) with: better understanding of current medical conditions; weighing benefits/burdens of medical treatment options; making medical treatment decisions. (Angelica Barajas) Subjective/Interval History Patient seen today to follow-up on dyspnea, comfort. Stable over weekend, no significant events. CPAP trials today, no air leak, ordered for decadron IV, cont CPAP trial, may attempt medical extubation tomorrow pending pt condition. CXR=Significant consolidation throughout both lungs. BC 5/2 no growth x5 days. Tolerating TF, received multiple prn's for no bowel movement, now having loose stools today. WBC 16.3. H&H stable. Creatinine uptrending 2.94, BUN 58, GFR 16. Continued on daptomycin, fluconazole,Azactam. Patient seen in room. She slightly opens eyes, she slightly nods her head weakly to some questions though very minimal not. She does follow commands to grasp with hands, she also moves both feet very weakly to commands. Explain ICU , mechanical ventilation weaning process she nods her head and grasps to this seems to have some understanding. Ask her if she is in pain she seems to not weakly to this though given communication barriers difficult to further quantify /qualify. She is currently on fentanyl drip 150 mics/hour. Very leaned forward , kyphotic posture. Discussed with primary nurse. Patient has been alert, following some commands. No apparent distress per nursing assessment . Family/friend interactions * I received a voicemail from remaining sister Itzel indicating she defers to brothvíctor Garcia to serve as proxy for pt. Call to update brothvíctor Garcia, who is serving as proxy per family's request. Updated on current condition, assessments, diagnostics, vent weaning in process. all questions answered. Review she is stable but remains at risk for potential complications/setbacks. He is appreciative of updates. Goals remain aggressive, cont to hope pt condition will improve with continued aggressive treatments. . (Angelica Barajas) Advance Directives Living Will: Never completed Health Care Surrogate: Never completed Durable Power of Valet Runner: Never completed (Angelica Barajas) Objective Vital Signs Date Time Temp Pulse Resp B/P (MAP) Pulse Ox O2 Delivery O2 Flow Rate FiO2 08/08/17 11:25 95 35 08/08/17 10:00 79 08/08/17 08:00 35 08/08/17 08:00 98.8 83 16 172/81 (111) 96 08/08/17 08:00 79 08/08/17 07:50 98.8 83 16 160/77 (104) 98 08/08/17 07:29 97 35 08/08/17 06:31 82 17 154/72 (99) 96 08/08/17 06:31 82 08/08/17 06:00 74 0 96 08/08/17 06:00 74 08/08/17 05:00 118 28 81 08/08/17 05:00 118 08/08/17 04:08 98 35 08/08/17 04:00 90 08/08/17 04:00 35 08/08/17 04:00 99.0 90 17 172/79 (110) 97 08/08/17 02:00 89 08/08/17 02:00 89 21 159/78 (105) 96 08/08/17 01:00 85 08/08/17 01:00 85 24 170/79 (109) 97 08/08/17 01:00 97 35 08/08/17 00:00 77 08/08/17 00:00 99.5 77 19 141/67 (91) 96 08/08/17 00:00 35 08/07/17 22:00 35 08/07/17 22:00 79 19 153/70 (97) 97 08/07/17 22:00 79 08/07/17 21:36 97 35 08/07/17 21:00 84 23 162/88 (112) 97 08/07/17 21:00 84 08/07/17 20:00 35 08/07/17 20:00 100.5 80 161/76 (104) 97 08/07/17 20:00 80 08/07/17 18:00 64 08/07/17 17:43 97 35 08/07/17 16:00 98.8 90 17 156/71 (99) 96 08/07/17 16:00 90 08/07/17 16:00 35 08/07/17 14:00 73 08/07/17 13:29 97 35 Intake & Output 08/08/17 08/08/17 06:59 18:59 Intake Total 1891 ml Output Total 2700 ml Balance -809 ml IV Total 861 ml Tube Feeding 710 ml Other 320 ml Output Urine Total 2700 ml # Bowel Movements 1 Physical Exam CONSTITUTIONAL/GENERAL: This is an adequately nourished patient, sedated minimally responsive on mechanical vent no apparent distress TUBES/LINES/DRAINS: Right femoral central line. ET tube. NG tube. Soft restraints bilateral upper extremities. SKIN: No jaundice, rashes, or lesions. Very pale. Multiple healed graft scars noted to upper legs, several scars, clean dry dressings to bilateral lower legs. Skin warm/dry. HEAD: Atraumatic. Normocephalic. EYES: Pupils 2 mm questionable reaction to light. No scleral icterus. No injection or drainage. Fundi not examined. CARDIOVASCULAR: Irregular rate and rhythm. Atrial fib observed. No JVD. Peripheral pulses symmetric-pedal pulses very faint RESPIRATORY/CHEST: Symmetric, unlabored respirations via mechanical vent. Clear to auscultation. Decreased air movement. GASTROINTESTINAL: Abdomen soft, no apparent tenderness though limited assessment , nondistended. No hepato-splenomegaly, or palpable masses. No guarding. Bowel sounds hypoactive. GENITOURINARY: Without palpable bladder distension. Catheter in place clear dark yellow urine. MUSCULOSKELETAL: Extremities without clubbing, cyanosis, or edema. Healed graft scars to upper legs. Dressings to lower legs. Lower legs are very thin, with significant muscle atrophy. Arthritic appearing deformity to feet. Kyphotic posture, leaning forward in bed. NEUROLOGICAL: Sedated on mechanical vent, very slight eye opening to stimuli. Grasps with hands weakly to commands. Minimal foot/leg movement to command. Appears comfortable. PSYCHIATRIC: No obvious anxiety/depression--limited assessment secondary to clinical condition. . (Angelica Barajas) Diagnostic Tests Laboratory Laboratory Tests Test 08/05/17 12:16 08/05/17 15:35 08/05/17 15:45 08/05/17 17:40 Lactic Acid Level 2.1 mmol/L (0.4-2.0) 2.2 mmol/L (0.4-2.0) Prothrombin Time 102.7 SEC (9.8-11.6) Prothromb Time International Ratio 10.3 RATIO Blood Gas Puncture Site RT RADIAL Blood Gas Patient Temperature 98.6 Blood Gas HCO3 27 mmol/L (22-26) Blood Gas Base Excess 3.9 mmol/L (-2-2) Blood Gas Oxygen Saturation 93 % (90-100) Arterial Blood pH 7.54 (7.380-7.420) Arterial Blood Partial Pressure CO2 31 mmHg (38-42) Arterial Blood Partial Pressure O2 74 mmHg (61-120) Arterial Blood Oxygen Content 12.8 Vol % (12.0-20.0) Arterial Blood Carboxyhemoglobin 1.2 % (0-4) Arterial Blood Methemoglobin 1.1 % (0-2) Blood Gas Hemoglobin 9.7 G/DL (12.0-16.0) Oxygen Delivery Device VENTILATOR Blood Gas Ventilator Setting Blood Gas Inspired Oxygen 35 % Test 08/06/17 00:43 08/06/17 04:10 08/06/17 04:51 08/07/17 05:00 Lactic Acid Level 1.4 mmol/L (0.4-2.0) 1.4 mmol/L (0.4-2.0) Blood Gas Puncture Site LT RADIAL Blood Gas Patient Temperature 98.6 Blood Gas HCO3 26 mmol/L (22-26) Blood Gas Base Excess 2.7 mmol/L (-2-2) Blood Gas Oxygen Saturation 94 % (90-100) Arterial Blood pH 7.48 (7.380-7.420) Arterial Blood Partial Pressure CO2 36 mmHg (38-42) Arterial Blood Partial Pressure O2 86 mmHg (61-120) Arterial Blood Oxygen Content 14.8 Vol % (12.0-20.0) Arterial Blood Carboxyhemoglobin 1.3 % (0-4) Arterial Blood Methemoglobin 1.2 % (0-2) Blood Gas Hemoglobin 11.1 G/DL (12.0-16.0) Oxygen Delivery Device VENTILATOR Blood Gas Ventilator Setting COMMENT Blood Gas Inspired Oxygen 35 % White Blood Count 9.8 TH/MM3 (4.0-11.0) 9.3 TH/MM3 (4.0-11.0) Red Blood Count 2.91 MIL/MM3 (4.00-5.30) 3.07 MIL/MM3 (4.00-5.30) Hemoglobin 9.7 GM/DL (11.6-15.3) 9.9 GM/DL (11.6-15.3) Hematocrit 28.1 % (35.0-46.0) 29.4 % (35.0-46.0) Mean Corpuscular Volume 96.4 FL (80.0-100.0) 95.8 FL (80.0-100.0) Mean Corpuscular Hemoglobin 33.3 PG (27.0-34.0) 32.2 PG (27.0-34.0) Mean Corpuscular Hemoglobin Concent 34.6 % (32.0-36.0) 33.6 % (32.0-36.0) Red Cell Distribution Width 17.9 % (11.6-17.2) 17.8 % (11.6-17.2) Platelet Count 131 TH/MM3 (150-450) 144 TH/MM3 (150-450) Mean Platelet Volume 8.7 FL (7.0-11.0) 8.7 FL (7.0-11.0) Neutrophils (%) (Auto) 90.2 % (16.0-70.0) 88.3 % (16.0-70.0) Lymphocytes (%) (Auto) 4.4 % (9.0-44.0) 4.2 % (9.0-44.0) Monocytes (%) (Auto) 4.7 % (0.0-8.0) 6.0 % (0.0-8.0) Eosinophils (%) (Auto) 0.6 % (0.0-4.0) 1.4 % (0.0-4.0) Basophils (%) (Auto) 0.1 % (0.0-2.0) 0.1 % (0.0-2.0) Neutrophils # (Auto) 8.9 TH/MM3 (1.8-7.7) 8.2 TH/MM3 (1.8-7.7) Lymphocytes # (Auto) 0.4 TH/MM3 (1.0-4.8) 0.4 TH/MM3 (1.0-4.8) Monocytes # (Auto) 0.5 TH/MM3 (0-0.9) 0.6 TH/MM3 (0-0.9) Eosinophils # (Auto) 0.1 TH/MM3 (0-0.4) 0.1 TH/MM3 (0-0.4) Basophils # (Auto) 0.0 TH/MM3 (0-0.2) 0.0 TH/MM3 (0-0.2) CBC Comment AUTO DIFF DIFF FINAL Differential Comment AUTO DIFF CONFIRMED Platelet Estimate LOW (NORMAL) Platelet Morphology Comment NORMAL (NORMAL) Prothrombin Time 21.5 SEC (9.8-11.6) 17.4 SEC (9.8-11.6) Prothromb Time International Ratio 2.1 RATIO 1.7 RATIO Blood Urea Nitrogen 59 MG/DL (7-18) 60 MG/DL (7-18) Creatinine 2.52 MG/DL (0.50-1.00) 2.76 MG/DL (0.50-1.00) Random Glucose 114 MG/DL (74-106) 135 MG/DL (74-106) Total Protein 6.5 GM/DL (6.4-8.2) 6.7 GM/DL (6.4-8.2) Albumin 1.9 GM/DL (3.4-5.0) 1.7 GM/DL (3.4-5.0) Calcium Level 7.3 MG/DL (8.5-10.1) 7.7 MG/DL (8.5-10.1) Phosphorus Level 3.4 MG/DL (2.5-4.9) 3.4 MG/DL (2.5-4.9) Magnesium Level 1.4 MG/DL (1.5-2.5) 1.9 MG/DL (1.5-2.5) Alkaline Phosphatase 193 U/L (45-117) 189 U/L (45-117) Aspartate Amino Transf (AST/SGOT) 1808 U/L (15-37) 722 U/L (15-37) Alanine Aminotransferase (ALT/SGPT) 1473 U/L (10-53) 1092 U/L (10-53) Total Bilirubin 1.0 MG/DL (0.2-1.0) 0.8 MG/DL (0.2-1.0) Sodium Level 143 MEQ/L (136-145) 141 MEQ/L (136-145) Potassium Level 3.7 MEQ/L (3.5-5.1) 3.6 MEQ/L (3.5-5.1) Chloride Level 106 MEQ/L (98-107) 105 MEQ/L (98-107) Carbon Dioxide Level 25.0 MEQ/L (21.0-32.0) 26.8 MEQ/L (21.0-32.0) Anion Gap 12 MEQ/L (5-15) 9 MEQ/L (5-15) Estimat Glomerular Filtration Rate 19 ML/MIN (>89) Protein Corrected Calcium 7.6 MG/DL (8.5-10.1) B-Type Natriuretic Peptide 964 PG/ML (0-100) 800 PG/ML (0-100) Test 08/08/17 05:35 White Blood Count 16.3 TH/MM3 (4.0-11.0) Red Blood Count 3.04 MIL/MM3 (4.00-5.30) Hemoglobin 9.9 GM/DL (11.6-15.3) Hematocrit 29.2 % (35.0-46.0) Mean Corpuscular Volume 96.0 FL (80.0-100.0) Mean Corpuscular Hemoglobin 32.5 PG (27.0-34.0) Mean Corpuscular Hemoglobin Concent 33.9 % (32.0-36.0) Red Cell Distribution Width 17.6 % (11.6-17.2) Platelet Count 143 TH/MM3 (150-450) Mean Platelet Volume 8.2 FL (7.0-11.0) Neutrophils (%) (Auto) 91.0 % (16.0-70.0) Lymphocytes (%) (Auto) 1.6 % (9.0-44.0) Monocytes (%) (Auto) 6.6 % (0.0-8.0) Eosinophils (%) (Auto) 0.5 % (0.0-4.0) Basophils (%) (Auto) 0.3 % (0.0-2.0) Neutrophils # (Auto) 14.8 TH/MM3 (1.8-7.7) Lymphocytes # (Auto) 0.3 TH/MM3 (1.0-4.8) Monocytes # (Auto) 1.1 TH/MM3 (0-0.9) Eosinophils # (Auto) 0.1 TH/MM3 (0-0.4) Basophils # (Auto) 0.0 TH/MM3 (0-0.2) CBC Comment DIFF FINAL Differential Comment Prothrombin Time 27.5 SEC (9.8-11.6) Prothromb Time International Ratio 2.7 RATIO Activated Partial Thromboplast Time 48.7 SEC (24.3-30.1) Blood Urea Nitrogen 58 MG/DL (7-18) Creatinine 2.94 MG/DL (0.50-1.00) Random Glucose 143 MG/DL (74-106) Total Protein 7.2 GM/DL (6.4-8.2) Albumin 1.7 GM/DL (3.4-5.0) Calcium Level 7.5 MG/DL (8.5-10.1) Phosphorus Level 3.4 MG/DL (2.5-4.9) Magnesium Level 1.8 MG/DL (1.5-2.5) Alkaline Phosphatase 184 U/L (45-117) Aspartate Amino Transf (AST/SGOT) 256 U/L (15-37) Alanine Aminotransferase (ALT/SGPT) 747 U/L (10-53) Lactate Dehydrogenase 253 U/L (84-246) Total Bilirubin 0.8 MG/DL (0.2-1.0) Sodium Level 143 MEQ/L (136-145) Potassium Level 3.7 MEQ/L (3.5-5.1) Chloride Level 106 MEQ/L (98-107) Carbon Dioxide Level 27.4 MEQ/L (21.0-32.0) Anion Gap 10 MEQ/L (5-15) Estimat Glomerular Filtration Rate 16 ML/MIN (>89) Lactic Acid Level 1.6 mmol/L (0.4-2.0) Ammonia 17 MCMOL/L (11-32) Total Creatine Kinase 27 U/L (26-192) Triglycerides Level 84 MG/DL (42-150) Cholesterol Level 69 MG/DL (120-200) LDL Cholesterol 34 MG/DL (0-99) HDL Cholesterol 17.8 MG/DL (40.0-60.0) Cholesterol/HDL Ratio 3.87 RATIO Lipase 284 U/L (73-393) (Angelica Barajas) Result Diagram: 08/08/17 0535 08/08/17 0535 Microbiology Microbiology Date/Time Source Procedure Growth Status 08/03/17 20:00 Blood Peripheral Aerobic Blood Culture - Final NO GROWTH IN 5 DAYS Complete 08/03/17 20:00 Blood Peripheral Anaerobic Blood Culture - Final NO GROWTH IN 5 DAYS Complete 08/03/17 15:55 Urine Catheterized Urine Urine Culture - Final Denise Glabrata Complete Imaging Last Impressions Chest X-Ray 08/08/17 0600 Signed Impressions: Service Date/Time: Tuesday, August 08, 2017 04:32 - CONCLUSION: Significant consolidation throughout both lungs. Cardiomegaly and pleural effusions persist.. Joseph Toro MD Lumbar Spine CT 08/04/17 0000 Signed Impressions: Service Date/Time: August 13:46 - CONCLUSION: 1. There is low density in the soft tissues at the recent laminectomy site L4-L5 measuring up to 2.4 cm in thickness with out deformity of the posterior thecal sac at the laminectomy site. 2. Stable anterolisthesis at L5-S1 with bony fusion. 3. 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 Maykel Singh MD Abdomen/Pelvis CT 08/04/17 0000 Signed Impressions: Service Date/Time: August 13:46 - CONCLUSION: 1. There is stool diffusely throughout the colon suggesting constipation. 2. The solid organs of the abdomen are grossly intact. 3. No free air free fluid seen within the abdomen. No abscess is identified. 4. Small amount of free fluid within the abdomen. 5. Bilateral pleural effusions and consolidation. 6. Cardiomegaly. 7. 2 mm nonobstructing stone in the lower pole collecting system of the right kidney. 8. Anasarca. Mil Toro MD Abdomen Fluoroscopy 08/04/17 0000 Signed Impressions: Service Date/Time: August 17:00 - CONCLUSION: Uncomplicated nasoenteric suction type catheter (NGT) placement as above. Librado Hernandez MD Procedures 08/03/17 central line placed 08/04/17 intubated (Angelica Barajas) Assessment and Plan Disease Oriented Problem List: (1) Acute respiratory failure (2) CAD (coronary artery disease) (3) GERD (gastroesophageal reflux disease) (4) Anemia (5) Chest pain (6) Elevated troponin (7) Urinary tract infection (8) Sepsis (9) MRSA (methicillin resistant Staphylococcus aureus) septicemia (10) Atrial fibrillation with RVR (11) Hyperkalemia (12) Cardiomegaly (13) Hypoglycemia (14) Renal insufficiency (15) Metabolic acidosis (16) CKD (chronic kidney disease) stage 4, GFR 15-29 ml/min Symptom Scale: (1) Dyspnea 0-10 Scale: Unable to quantify (2) Pain 0-10 Scale: Unable to quantify Pertinent Non-Medical Issues 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 Not no children. Part of a very large family she has multiple siblings. She is closest with her brother Jose, who is local. Jose describes her as jessee and extremely kind and caring. 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 She may at some point regain ability to participate. Brother Jose indicates she has always listed him as primary contact, and has always indicated that she trusts him to make decisions when she cannot however he is not certain that she has completed any documentation of healthcare surrogate or advanced directives. Per [place] statutes legal decision making would fall to the majority of all of patient's siblings. Brother indicates that he has always been the one assisting her with medical needs, decisions. Will discuss with him further tomorrow and attempt to contact additional siblings to determine if they wish to participate in decision-making. 08/05/17 4 of 5 siblings defer to brother Jose. Ethical issues impacting care: None identified Important Contacts Brother Mark (Jose) Harveyannabellasusy [phone] Sister Karrie defers to brother Bill Sister Malu defers to brother Bill Brother Sterling defers to brother Bill brother Gm defers to Bill Sister Itzel-- 08/08 defers to Jose . Prognosis This patient was admitted for respiratory distress, chest discomfort. She has had multiple recent hospitalizations and rehabilitation courses. Brother details that each time one condition stabilizes or improves she experiences another complication. She has required ongoing treatment for MRSA infection at a surgical site. Given her advanced age and multiple condition she does remain at risk for continued complications and decline and possibly . Code Status: Full Code Plan * Legal decision maker: Patient currently on mechanical vent, sedation unable to participate in decision-making. She may at some point regain ability to participate. Brother Jose indicates she has always listed him as primary contact, and has always indicated that she trusts him to make decisions when she cannot however he is not certain that she has completed any documentation of healthcare surrogate or advanced directives. Per [place] statutes legal decision making would fall to the majority of all of patient's siblings. Brother indicates that he has always been the one assisting her with medical needs, decisions. Will discuss with him further tomorrow and attempt to contact additional siblings to determine if they wish to participate in decision -making. 08/05/17 brother Mark (Jose )called 4 of the 5 siblings each elected for him to serve as spokesperson for proxy decision-making. He left a voicemail for the fifth sibling Itzel. 08/08/17 call back from sister Itzel, who defers decision making/proxy to brother Jose. Jose willing to cont to serve as HC proxy. * Goals: Brother continues to express aggressive goals as consistent with patient known wishes. He is open to ongoing conversations as clinical course evolves. He is hopeful that the patient will improve with ongoing aggressive treatments. * CODE STATUS:Full code * SYMPTOMS: --dyspnea-admitted for respiratory distress. Worsening respiratory status, metabolic acidosis, intubated 08/04. She is currently breathing comfortably on mechanical vent. She is on sedation no asynchrony observed. CXR with no significant changes diffuse consolidation bilaterally. CPAP trials today. Treated with Decadron for edema, possible may attempt extubation tomorrow pending clinical course. --Pain-patient appears comfortable at time of exam, currently unable to report pain however potential sources would include: Bedbound status, recent invasive procedure intubation, central line, multiple recent hospitalizations and surgical procedures, KAY to back still in place. She is noted to be on chronic morphine long-acting and short-acting prior to admission and has underwent multiple procedures and hospitalizations recently so likely has some underlying chronic pain. She was initially started on on fentanyl drip --this is currently at 150 mics/hour. She appears to nod yes to pain today though she is unable to further quantify or qualify due to communication barriers. She is chronically on morphine extended release 15 mg every 12 hours, as well as morphine 15 mg prn for breakthrough pain; appears she is not opiate salomón may need additional pain regimen as clinical course goes forward. Will continue to evaluate. She appears comfortable today at time of my exam. * Palliative care will continue to follow during hospital course as condition evolves, to assist patient/decision-maker with understanding of medical conditions, weighing benefits/burdens of treatment options, for clarification of goals of treatment. Additionally will assist with any symptoms of palliative concern . (Angelica Barajas) Time Spent Total Floor Time (mins): 20 (Chart review, PE, discussion with nurse, discussion with proxy) (Angelica Barajas) Attestation To help prompt me to consider important information that might be impacting today's encounter and assessment, information from prior notes written by myself or my colleagues may have been "brought forward" into today's note. My signature on this note, however, is an attestation that I personally performed the exam, history, and/or decision-making noted today, and, unless otherwise indicated, the interactions with patient, family, and staff as well as the review of records all occurred today. I also attest that the listed assessment and stated plan reflect my best clinical judgment today based on the combination of historical information, prior notes, and today's exam/ interactions. When time spent is documented, it refers only to time spent today by the signer, or if indicated, combined time spent today by collaborating physician/nurse practitioner. (Angelica Barajas) Collaborating MD Comments Chart reviewed. Case discussed with palliative care nurse practitioner. Above AISLINN note reviewed and I concur. . (Arnulfo Jacques MD) Angelica Barajsa August 08, 2017 12:38 Arnulfo Jacques MD Sep 10, 2017 14:45
[2017-08-08] MEDS: FLUCONAZOLE 200 MG PREMIX BAG 100 ML IV SCH (15:00)
[2017-08-08] MEDS ORDERED: NITROGLYCERIN 2% OINT 1 GM PACKET TOPICAL PRN (15:15)
[2017-08-08] MEDS: hydrALAZINE HCL 20 MG/ML VIAL IV PUSH PRN ×2 (15:28→16:18)
[2017-08-08] MEDS: METOPROLOL TARTRATE 5 MG/5 ML VIAL IV PUSH PRN (16:20)
--- NOTE | 2017-08-08 19:17 | HHI.IDPN ---
Note Infectious Disease Note Patient is awake on the ventilator. On CPAP. She has edema of the face and eyelids. Afebrile. Liver function test improving. No drainage at the KAY in the lumbosacral spine. RN reports that she is diuresing well. Right femoral central line has been removed. 76-year-old white female who presented to the Emergency Department from senior living facility with respiratory distress. She was noted to be complaining also of chest discomfort. The patient was intubated and is currently on a ventilator. In the emergency department, the patient had heart rate of 144, temperature 100.9 and respiratory rate of 53. Lactic acid level was 9.4. She was recently diagnosed with acute renal failure at [facility] and was transferred to a senior living facility upon discharge there on 08/02/2017 . Evaluated at [facility] for altered mental status and also acute kidney disease. The patient has a history of recent surgery at [facility] in [place]. She underwent removal of hardware from the lumbosacral spine L1-S1 because of exposed loosened hardware from prior surgery. She reportedly had surgery of the lumbosacral spine 10 years prior. The surgery at [facility] was on 06/27. Intraoperative culture reportedly had MRSA. She was put on antibiotics by infectious disease to complete on 07/29/2017. She was receiving intravenous vancomycin. She was seen by infectious disease physician at [facility] and reportedly will be in need of IV antibiotics for 6 weeks with daptomycin for osteomyelitis of the lumbar spine. PAST MEDICAL HISTORY: 1. L4-S1 fusion. Recent hardware removal. 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 The patient noted to have loosened hardware 2. Atrial fibrillation. 3. COPD, 4. Plasmacytoma, 5. Anemia, 6. Osteoarthritis, 7. Appendectomy, 8. Hysterectomy, 9. Tonsillectomy, 10. Cholecystectomy, 11. Gastroesophageal reflux disease surgery. ALLERGIES: VANCOMYCIN, ALBUTEROL, GABAPENTIN, IPRATROPIUM, IRON, PENICILLIN G, PROCHLORPERAZINE MEDICATIONS: Current Medications Medications (Trade) Dose Ordered Sig/Jayne Route PRN Reason Start Time Stop Time Status Last Admin Dose Admin Metoprolol Tartrate (Lopressor Inj) 5 mg Q5M PRN IV PUSH HR > 100 08/03/17 16:45 08/08/17 16:20 Ascorbic Acid (Vitamin C) 500 mg DAILY PO 08/04/17 09:00 5/7/18 08:32 Cyclobenzaprine HCl (Flexeril) 10 mg Q8HR PRN PO Muscle Cramps 08/03/17 19:45 Fluticasone Propionate (Flonase Harvey Spr) 1 spray Q12HR EACH NARE 08/03/17 21:00 Future Hold 08/07/17 09:08 Morphine Sulfate (Oramorph Sr) 15 mg Q12HR PO 08/03/17 21:00 Future Hold 08/04/17 07:57 Morphine Sulfate (Msir) 15 mg Q4H PRN PO Moderate Pain 08/03/17 19:45 Future Hold Sodium Chloride (NS Flush) 10 ml Q8HR IV FLUSH 08/03/17 22:00 08/08/17 14:00 Zinc Sulfate (Zinc Sulfate) 220 mg DAILY PO 08/04/17 09:00 08/08/17 08:32 Sodium Chloride (NS Flush) 2 ml UNSCH PRN IV FLUSH FLUSH AFTER USING IV ACCESS 08/03/17 20:00 Sodium Chloride (NS Flush) 2 ml BID IV FLUSH 08/03/17 21:00 08/08/17 09:00 Morphine Sulfate (Morphine Inj) 2 mg Q2H PRN IV PUSH PAIN SCALE 6 TO 10 08/03/17 20:00 Future Hold 08/04/17 05:14 Ondansetron HCl (Zofran Inj) 4 mg Q6H PRN IV PUSH NAUSEA OR VOMITING 08/03/17 20:00 Heparin Sodium (Porcine) (Heparin Inj) 5,000 units Q8H SQ 08/03/17 20:00 Future Hold 08/04/17 05:13 Miscellaneous Information ([facility]) 1 [id number] XX 08/03/17 20:00 08/03/17 22:46 Chlorhexidine Gluconate (Chlorhexidine 2% Cloth) 3 pack Taper DAILY@04 TOP 08/04/17 04:00 07/31/18 03:59 08/08/17 05:11 Chlorhexidine Gluconate (Chlorhexidine 2% Cloth) 3 pack UNSCH PRN TOP HYGIENIC CARE 08/03/17 20:00 Senna/Docusate Sodium (Dina-Colace) 1 tab BID PO 08/03/17 21:00 08/08/17 08:32 Magnesium Hydroxide (Milk Of Magnesia Liq) 30 ml Q12H PRN PO Mild constipation 08/03/17 20:00 Sennosides (Senokot) 17.2 mg Q12H PRN PO Moderate constipation 08/03/17 20:00 Bisacodyl (Dulcolax Supp) 10 mg DAILY PRN RECTAL SEVERE CONSITIPATION 08/03/17 20:00 Lactulose (Lactulose Liq) 30 ml DAILY PRN PO SEVERE CONSITIPATION 08/03/17 20:00 Pharmacy Profile Note 0 ml @ 0 mls/hr UNSCH OTHER 08/04/17 03:45 Diltiazem HCl (Cardizem) 60 mg Q8HR PO 08/04/17 10:45 08/08/17 14:00 Fentanyl Citrate 250 ml @ 5 mls/hr TITRATE PRN IV SEDATION 08/04/17 10:30 08/08/17 18:12 Chlorhexidine Gluconate (Peridex 0.12% Liq) 15 ml BID@08,20 MT 08/04/17 20:00 08/08/17 08:00 Ipratropium [place] (Atrovent Neb) 0.5 mg Q6HR NEB NEB 08/04/17 16:00 Aztreonam 1000 mg/ Sodium Chloride 100 ml @ 200 mls/hr Q12H IV 08/04/17 17:00 08/08/17 16:18 Daptomycin 500 mg/ Sodium Chloride 100 ml @ 200 mls/hr Q48H IV 08/06/17 11:00 08/08/17 10:56 Famotidine (Pepcid) 10 mg BID PO 08/05/17 21:00 08/08/17 08:33 Fluconazole/ Sodium Chloride 100 ml @ 100 mls/hr Q24H IV 08/06/17 15:00 08/20/17 14:59 08/08/17 15:00 Artificial Tears (Tears Naturale Opth Soln) 1 drop Q8HR EACH EYE 08/07/17 14:00 08/08/17 14:00 Acetaminophen (Tylenol 650 Mg/ 20 ml Liq) 650 mg Q6H PRN PO fever 08/07/17 14:00 Mupirocin (Bactroban Nasal 2% Oint) 1 applic Taper BID EACH NARE 08/07/17 21:00 08/03/18 20:59 08/08/17 08:32 Lactulose (Lactulose Liq) 30 ml Q12HR PO 08/07/17 21:00 08/08/17 08:32 Warfarin Sodium (Coumadin) 2 mg DAILY@1600 PO 08/07/17 16:00 Future Hold 08/07/17 15:37 Dexamethasone Sodium Phosphate (Decadron Inj) 4 mg Q6HR IV PUSH 08/08/17 12:00 08/09/17 11:59 08/08/17 18:12 Labetalol HCl (Trandate Inj) 10 mg Q1HR PRN IV PUSH SBP>170, DBP>90, HR>65 08/08/17 15:15 Hydralazine HCl (Apresoline Inj) 10 mg Q1HR PRN IV PUSH SBP>170, DBP>90 08/08/17 15:15 08/08/17 16:18 Nitroglycerin (Nitroglycerin 2% Oint) 2 inch Q6HR PRN TOPICAL SBP>170, DBP>90 08/08/17 15:15 Objective: Vital Signs Date Time Temp Pulse Resp B/P (MAP) Pulse Ox O2 Delivery O2 Flow Rate FiO2 08/08/17 18:00 78 08/08/17 16:00 35 08/08/17 16:00 78 08/08/17 16:00 99.0 77 16 155/74 (101) 97 08/08/17 15:49 92 35 08/08/17 14:00 79 08/08/17 12:00 79 08/08/17 12:00 35 08/08/17 12:00 98.6 89 16 164/75 (104) 96 08/08/17 11:25 95 35 08/08/17 10:00 79 08/08/17 08:00 35 08/08/17 08:00 98.8 83 16 172/81 (111) 96 08/08/17 08:00 79 08/08/17 07:50 98.8 83 16 160/77 (104) 98 08/08/17 07:29 97 35 08/08/17 06:31 82 17 154/72 (99) 96 08/08/17 06:31 82 08/08/17 06:00 74 0 96 08/08/17 06:00 74 08/08/17 05:00 118 28 81 08/08/17 05:00 118 08/08/17 04:08 98 35 08/08/17 04:00 90 08/08/17 04:00 35 08/08/17 04:00 99.0 90 17 172/79 (110) 97 08/08/17 02:00 89 08/08/17 02:00 89 21 159/78 (105) 96 08/08/17 01:00 85 08/08/17 01:00 85 24 170/79 (109) 97 08/08/17 01:00 97 35 08/08/17 00:00 77 08/08/17 00:00 99.5 77 19 141/67 (91) 96 08/08/17 00:00 35 08/07/17 22:00 35 08/07/17 22:00 79 19 153/70 (97) 97 08/07/17 22:00 79 08/07/17 21:36 97 35 08/07/17 21:00 84 23 162/88 (112) 97 08/07/17 21:00 84 08/07/17 20:00 35 08/07/17 20:00 100.5 80 161/76 (104) 97 08/07/17 20:00 80 Laboratory Tests Test 08/07/17 05:00 08/08/17 05:35 White Blood Count 9.3 TH/MM3 16.3 TH/MM3 Red Blood Count 3.07 MIL/MM3 3.04 MIL/MM3 Hemoglobin 9.9 GM/DL 9.9 GM/DL Hematocrit 29.4 % 29.2 % Mean Corpuscular Volume 95.8 FL 96.0 FL Mean Corpuscular Hemoglobin 32.2 PG 32.5 PG Mean Corpuscular Hemoglobin Concent 33.6 % 33.9 % Red Cell Distribution Width 17.8 % 17.6 % Platelet Count 144 TH/MM3 143 TH/MM3 Mean Platelet Volume 8.7 FL 8.2 FL Neutrophils (%) (Auto) 88.3 % 91.0 % Lymphocytes (%) (Auto) 4.2 % 1.6 % Monocytes (%) (Auto) 6.0 % 6.6 % Eosinophils (%) (Auto) 1.4 % 0.5 % Basophils (%) (Auto) 0.1 % 0.3 % Neutrophils # (Auto) 8.2 TH/MM3 14.8 TH/MM3 Lymphocytes # (Auto) 0.4 TH/MM3 0.3 TH/MM3 Monocytes # (Auto) 0.6 TH/MM3 1.1 TH/MM3 Eosinophils # (Auto) 0.1 TH/MM3 0.1 TH/MM3 Basophils # (Auto) 0.0 TH/MM3 0.0 TH/MM3 CBC Comment DIFF FINAL DIFF FINAL Differential Comment Laboratory Tests Test 08/07/17 05:00 08/08/17 05:35 Blood Urea Nitrogen 60 MG/DL 58 MG/DL Creatinine 2.76 MG/DL 2.94 MG/DL Random Glucose 135 MG/DL 143 MG/DL Total Protein 6.7 GM/DL 7.2 GM/DL Albumin 1.7 GM/DL 1.7 GM/DL Calcium Level 7.7 MG/DL 7.5 MG/DL Phosphorus Level 3.4 MG/DL 3.4 MG/DL Magnesium Level 1.9 MG/DL 1.8 MG/DL Alkaline Phosphatase 189 U/L 184 U/L Aspartate Amino Transf (AST/SGOT) 722 U/L 256 U/L Alanine Aminotransferase (ALT/SGPT) 1092 U/L 747 U/L Total Bilirubin 0.8 MG/DL 0.8 MG/DL Sodium Level 141 MEQ/L 143 MEQ/L Potassium Level 3.6 MEQ/L 3.7 MEQ/L Chloride Level 105 MEQ/L 106 MEQ/L Carbon Dioxide Level 26.8 MEQ/L 27.4 MEQ/L Anion Gap 9 MEQ/L 10 MEQ/L B-Type Natriuretic Peptide 800 PG/ML Lactate Dehydrogenase 253 U/L Estimat Glomerular Filtration Rate 16 ML/MIN Lactic Acid Level 1.6 mmol/L Ammonia 17 MCMOL/L Total Creatine Kinase 27 U/L Triglycerides Level 84 MG/DL Cholesterol Level 69 MG/DL LDL Cholesterol 34 MG/DL HDL Cholesterol 17.8 MG/DL Cholesterol/HDL Ratio 3.87 RATIO Lipase 284 U/L Imaging: Chest X-Ray 08/08/17 06 Signed Impressions: Service Date/Time: Tuesday, August 08, 2017 04:32 - CONCLUSION: Significant consolidation throughout both lungs. Cardiomegaly and pleural effusions persist.. Joseph Toro MD Chest X-Ray 08/07/17 06 Signed Impressions: Service Date/Time: Monday, August 07, 2017 03:10 - CONCLUSION: No significant change Sterling Aguilar MD Chest X-Ray 08/05/17 0600 Signed Impressions: Service Date/Time: Saturday, August 05, 2017 04:54 - CONCLUSION: Normal placement of nasogastric tube. Grossly stable aeration Sterling Aguilar MD Lumbar Spine CT 08/04/17 0000 Signed Impressions: Service Date/Time: August 13:46 - CONCLUSION: 1. There is low density in the soft tissues at the recent laminectomy site L4-L5 measuring up to 2.4 cm in thickness with out deformity of the posterior thecal sac at the laminectomy site. 2. Stable anterolisthesis at L5-S1 with bony fusion. 3. 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 Maykel Singh MD Abdomen/Pelvis CT 08/04/17 0000 Signed Impressions: Service Date/Time: August 13:46 - CONCLUSION: 1. There is stool diffusely throughout the colon suggesting constipation. 2. The solid organs of the abdomen are grossly intact. 3. No free air free fluid seen within the abdomen. No abscess is identified. 4. Small amount of free fluid within the abdomen. 5. Bilateral pleural effusions and consolidation. 6. Cardiomegaly. 7. 2 mm nonobstructing stone in the lower pole collecting system of the right kidney. 8. Anasarca. Mil Toro MD Abdomen Fluoroscopy 08/04/17 0000 Signed Impressions: Service Date/Time: August 17:00 - CONCLUSION: Uncomplicated nasoenteric suction type catheter (NGT) placement as above. Librado Hernandez MD PHYSICAL EXAMINATION: GENERAL: Patient opens eyes and tracks. HEENT: The head is atraumatic. Diffuse edema of the face. Extraocular movements appear intact. Oropharynx intubated. Mucosa appears moist. NECK: No swelling or adenopathy. LUNGS: Rhonchi at both bases. HEART: Irregular S1 and S2. No audible murmurs, rubs or gallops. ABDOMEN: Slightly distended, soft, decreased bowel sounds. BACK: KAY drainage catheter exits the back and has scant serous drainage. EXTREMITIES: No clubbing, cyanosis or edema. SKIN: No rash. NEUROLOGIC: Unable to fully assess. PSYCHIATRIC: Unable to fully assess. IMPRESSION: 1. Septic shock. Appears improved. 2. Acute hypercapnic respiratory failure. 3. Acute renal failure. 4. Shock liver, probably from sepsis. LFTs improving. 5. Osteomyelitis of the lumbar spine. Patient was placed on IV antibiotics By ID at [facility]. The patient is status post hardware removal from the lumbar spine and noted to have methicillin-resistant Staph aureus on culture. She received a course of IV vancomycin which was completed on 07/29/2017. 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 6. Candiduria. RECOMMENDATIONS: 1. Continue the Daptomycin at q 48 hour interval. 2. Continue Azactam. 3. Continue Diflucan. 4. Follow the white blood cell count. 5. Monitor clinical status. Dion Wing MD August 08, 2017 19:17
[2017-08-09] VITALS (17 sets, daily range): BP systolic 124–164; BP diastolic 61–77; PULSE 71–105; RESP 11–17; TEMP 98.5–98.9; O2SAT 95–100
[2017-08-09] MEDS: DEXAMETHASONE SOD PHOS 4 MG/ML VIAL IV PUSH SCH ×4 (00:38→18:00)
[2017-08-09] MEDS: CHLORHEXIDINE GLUCONATE 2 % 1 PACK (2 CLOTHS) TOP SCH (04:00)
[2017-08-09] MEDS: RESP: IPRATROPIUM 0.5 MG/2.5 ML NEB NEB SCH ×4 (04:41→22:00)
[2017-08-09] MEDS: AZTREONAM INJ 1,000 MG in SODIUM CHLORIDE 0.9% INJ 100 ML IV SCH ×2 (05:22→17:00)
[2017-08-09] MEDS: DILTIAZEM HCL 60 MG TAB PO SCH ×3 (05:22→22:36)
[2017-08-09] MEDS: ARTIFICIAL TEARS OPTH SOLN 15 ML BTL EACH EYE SCH ×3 (05:22→22:36)
[2017-08-09] MEDS: SODIUM CHLORIDE 0.9% FLUSH 10 ML FLUSH IV FLUSH SCH ×5 (05:22→22:37)
[2017-08-09 07:07] LABS: INTERNATIONAL NORMALIZED RATIO 3.6 RATIO; PROTHROMBIN TIME - PATIENT 36.3 SEC (9.8-11.6)
[2017-08-09] MEDS: CHLORHEXIDINE 0.12% (ORAL KIT) 15 ML CUP MT SCH ×2 (08:00→22:36)
[2017-08-09] MEDS: MUPIROCIN 2% OINT 1 APPLIC/GM SYR EACH NARE SCH ×2 (09:00→22:37)
[2017-08-09] MEDS: LACTULOSE SYRUP 20 GM/30 ML CUP PO SCH ×2 (09:27→21:00)
[2017-08-09] MEDS: DOCUSATE SODIUM 50 MG/SENNA 8.6 MG TAB PO SCH ×2 (09:27→21:00)
[2017-08-09] MEDS: ZINC SULFATE 220 MG CAP PO SCH (09:28)
[2017-08-09] MEDS: ASCORBIC ACID 500 MG TAB PO SCH (09:28)
[2017-08-09] MEDS: FAMOTIDINE 20 MG TAB PO SCH ×2 (09:28→22:37)
[2017-08-09] MEDS: fentaNYL DRIP 250 ML IV PRN (11:00)
--- NOTE | 2017-08-09 11:57 | HHI.CCPN ---
Subjective Remarks/Hospital Course 76-year-old female resident of the shelter presents with complaints of respiratory difficulty. Onset was today. She is also complaining with some chest discomfort. She denies productive cough. Her symptoms are moderate to severe with no exacerbating factors. This patient was reportedly just discharged from [facility] with discitis secondary to MRSA. 53: Afebrile. Early this a.m. patient still having respiratory difficulty noted metabolic acidosis with a bicarb level 13, sodium bicarbonate infusion continues. She noticed to have respiratory distress ABGs performed. Impending intubation 7.10. Patient noted to have KAY drain emanating from back with dressing taken down no area redness yellow fluid and KAY drain sent for wound culture analysis. Upon further investigation patient's brother at bedside patient had lumbar hardware removed from [facility] in [place] approximately 6 weeks ago secondary to hardware eroding through the back and could be visualized on site. 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 Gottlieb cultures are pending. Attempts at medical record release forms from [facility] are pending. Patient previously last week at [facility] for acute kidney injury/urinary tract infection, attempting to obtain medical record. Patient was discharged approximately 2-3 days ago per report. This a.m. patient went into A. fib RVR with a heart rate in the 150s patient was given metoprolol 2 doses heart rate 112, patient is known to have chronic atrial fibrillation previously on Cardizem and digoxin 0.125 IV 1 dose Cardizem reinitiated. Discussion with patient regarding intubation and patient' s brother at bedside patient desires aggressive measures be undertaken patient requests intubation if needed and to remain a full code. Noted open areas skin wound areas on the lower extremities well-healed skin graft site left thigh wound care has been consulted. Palliative care also has been consulted to define goals of care. 08/05: Patient noted with elevated INR, Coumadin has been discontinued for 2 days. Vitamin K ordered. No active signs of bleeding. Patient on sedation vacation following commands. Afib rate controlled 70's-80's since addition to p.o. Cardizem. 6: Patient is currently on PSV trial FiO2 35%. Minimal secretions. Tolerating tube feeds. No bowel movement yesterday. Follows commands. Subjective: 08/08: Temperature currently 98.8. Adequate weaning parameters however no cough leak. We will give dexamethasone 1 day and recheck cuff leak in a.m. Awake and follows commands. Transaminases normalized. Creatinine continues to slowly rise. 08/09: No events overnight. Patient is lethargic, easily arousable, tolerating CPAP at 10/5. T-max of 99.9. Still no cuff leak. Urine output is appropriate , with 3650 mL's over the last 24 hours. No family present at bedside. Objective Vital Signs Date Time Temp Pulse Resp B/P (MAP) Pulse Ox O2 Delivery O2 Flow Rate FiO2 08/09/17 10:00 80 08/09/17 08:08 96 35 08/09/17 08:00 98.8 16 164/77 (106) Intake and Output 08/09/17 08/09/17 08/10/17 08:00 16:00 00:00 Intake Total 725 ml 68.5 ml Output Total 1250 ml Balance -525 ml 68.5 ml Result Diagram: 08/08/17 0535 08/08/17 0535 Imaging Last Impressions Chest X-Ray 08/08/17 0600 Signed Impressions: Service Date/Time: Tuesday, August 08, 2017 04:32 - CONCLUSION: Significant consolidation throughout both lungs. Cardiomegaly and pleural effusions persist.. Joseph Toro MD Lumbar Spine CT 08/04/17 0000 Signed Impressions: Service Date/Time: August 13:46 - CONCLUSION: 1. There is low density in the soft tissues at the recent laminectomy site L4-L5 measuring up to 2.4 cm in thickness with out deformity of the posterior thecal sac at the laminectomy site. 2. Stable anterolisthesis at L5-S1 with bony fusion. 3. 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 Maykel Singh MD Abdomen/Pelvis CT 08/04/17 0000 Signed Impressions: Service Date/Time: August 13:46 - CONCLUSION: 1. There is stool diffusely throughout the colon suggesting constipation. 2. The solid organs of the abdomen are grossly intact. 3. No free air free fluid seen within the abdomen. No abscess is identified. 4. Small amount of free fluid within the abdomen. 5. Bilateral pleural effusions and consolidation. 6. Cardiomegaly. 7. 2 mm nonobstructing stone in the lower pole collecting system of the right kidney. 8. Anasarca. Mil Toro MD Abdomen Fluoroscopy 08/04/17 0000 Signed Impressions: Service Date/Time: , August 04, 2017 17:00 - CONCLUSION: Uncomplicated nasoenteric suction type catheter (NGT) placement as above. Librado Hernandez MD Procedures 08/04 -placement of NG tube IR Objective Remarks GENERAL: Elderly lady, sedated, lethargic, easily arousable. Ill-appearing she is sitting leaning to her right side with her neck flexed. SKIN: Pale, no rashes appreciated. HEAD: Normocephalic. Atraumatic. EYES: Pupils equal and reactive. No scleral icterus. No injection or drainage. ENT: No nasal bleeding or discharge. Mucous membranes are now moist and pink. NECK: Trachea midline. Full range of motion without pain. Neck veins not distended. CARDIOVASCULAR: Irregular heart sounds, no murmurs appreciated. RESPIRATORY: Scattered coarse breath sounds bilateral, no wheezes. Decreased air entry at bases. ET tube appears high. GASTROINTESTINAL: Abdomen is soft, nontender, not distended. Bowel sounds present. MUSCULOSKELETAL: KAY drain lower spine. NEUROLOGICAL: Intubated, lethargic, opens eyes to voice stimuli and follows commands. Moves all 4 extremities but she remains weak. Date of Insertion: August 04, 2017 A/P Problem List: (1) Afib ICD Code: I48.91 - Unspecified atrial fibrillation Status: Acute (2) EMIR (acute kidney injury) ICD Code: N17.9 - Acute kidney failure, unspecified Status: Acute (3) CKD (chronic kidney disease) stage 4, GFR 15-29 ml/min ICD Code: N18.4 - Chronic kidney disease, stage 4 (severe) Status: Acute (4) Renal insufficiency ICD Code: N28.9 - Disorder of kidney and ureter, unspecified Status: Acute (5) Chronic pain ICD Code: G89.29 - Other chronic pain Status: Acute (6) Atrial fibrillation with RVR ICD Code: I48.91 - Unspecified atrial fibrillation Status: Acute (7) Hyperkalemia ICD Code: E87.5 - Hyperkalemia Status: Acute (8) Severe sepsis ICD Code: A41.9 - Sepsis, unspecified organism; R65.20 - Severe sepsis without septic shock (9) Metabolic acidosis ICD Code: E87.2 - Acidosis Status: Acute (10) Hypoglycemia ICD Code: E16.2 - Hypoglycemia, unspecified Status: Acute (11) Cardiomegaly ICD Code: I51.7 - Cardiomegaly Status: Acute Assessment and Plan Neuro/Psych: Chronic pain syndrome Status post removal of lumbar/sacral L5/S1 hardware 06/19 Chronic opioid use Patient is currently on a fentanyl drip at 100 mcg there are for sedation/ analgesia while intubated Goal of RASS -2 Neuro checks per ICU protocol Daily sedation vacation Acetaminophen 650 mg every 6 hours as needed for temperature greater than 101.5 Cyclobenzaprine 10 mg 3 times daily as needed muscle relaxant Morphine sulfate 15 mg every 4 hours as needed pain currently being held Respiratory: Acute hypercapnic respiratory failure Mild pulmonary hypertension COPD/asthma Continue CPAP trial 01/06, FiO2 at 0.35. Not ready for extubation because of lack of cuff leak Ventilator bundle Ipratropium aerosols every 6 hours Albuterol allergy When clinically indicated resume nasal fluticasone home medication Continue dexamethasone 4 mg IV every 6 hours until tomorrow and we will reassess in a.m. Stat CXR - clinically, ETT seems to be high Cardiovascular: A. fib RVR-resolved History of essential hypertension Chronic systolic congestive heart failure Chronic atrial fibrillation Cardizem 60 mg every 8 hours, since home medicines include Cardizem CD 08/05 Echo- The left ventricular systolic function is moderately reduced with an estimated ejection fraction in the range of 40-45%. Dyskinetic apical cap wall motion. The right ventricle is moderately dilated. Moderate mitral valve regurgitation. Aortic valve sclerosis is present. There is mild to moderate tricuspid valve regurgitation. There is estimated mild pulmonary hypertension present (range 40-50 mmHg). BNP [phone]->[phone] Home medications include isosorbide dinitrate 30 mg daily, metoprolol succinate 50 mg daily lisinopril 2.5 mg daily. These are currently on hold Patient normally on Coumadin therapy INR initial noted to be 6.1- with elevation to 11.0 on 08/05 Vit K administered Renal: Acute renal insufficiency incentive chronic kidney disease stage IV Right renal stone/no hydronephrosis Maintain Simpson -- Strict I/Os Creatinine currently 2.93. FEN/GI: Continue tube feeds / -difficult NG tube placement, placed by IR Famotidine 10 mg twice daily for GI prophylaxis. Docusate sodium/senna 1 tablet twice daily, lactulose 30 cc twice daily for bowel regimen Heme/ID: Anemia of chronic disease Thrombocytopenia Leukocytosis MRSA Discitis Chronic warfarin use Funguria ID following - Atrezonam, daptomycin, fluconazole Follow-up blood and urine cultures 08/05 Supratherapeutic INR-patient is on Coumadin, INR noted to be 11.0, vitamin K 10 mg IV. Medical records release obtained for medical records at [facility] and [facility] - The patient has a history of recent surgery at [facility] in [place]. She underwent removal of hardware from the lumbosacral spine L1-S1 because of exposed loosened hardware from prior surgery. She reportedly had surgery of the lumbosacral spine 10 years prior. The surgery at [facility] was on 06/27. Intraoperative culture reportedly had MRSA. She was put on antibiotics by infectious disease to complete on 07/29/2017. She was receiving intravenous vancomycin. The patient completed the course of the vancomycin. There is a notation in the medical record that she is ALLERGIC TO VANCOMYCIN. She is currently on daptomycin. She continues with a drainage catheter in the lumbosacral region from prior surgery. She was seen by infectious disease physician at [facility] and reportedly will be in need of IV antibiotics for 6 weeks because of osteomyelitis of the lumbar spine. 08/06 UTI -Denise-fluconazole 200mg/d 08/04- Blood Cultures -NGTD Endocrine: Hypoglycemia-resolved Glucose monitoring per ICU protocol -- SSI Prophylaxis: GI Prophylaxis Famotidine BID DVT Prophylaxis -- SCDs Heparin continues to be on hold. Patient normally on warfarin therapy for A. fib. INR 2.7 Lines: PICC line Level 2 follow-up Marcos Ley MD August 09, 2017 11:57
--- NOTE | 2017-08-09 12:05 | RADRPT ---
EXAM DATE/TIME: 08/09/2017 11:34 [place] COMPARISON: CHEST SINGLE AP, August 03, 2017, 17:18. CHEST SINGLE AP, August 07, 2017, 3:10. CHEST SINGLE AP, August 08, 2017, 4:32. INDICATIONS : Pneumonia. MEDICAL HISTORY : Cardiovascular disease. Gastroesophageal reflux disease. SURGICAL HISTORY : Appendectomy. Hysterectomy. ENCOUNTER: Initial ACUITY: 4 - 6 days PAIN SCORE: Non-responsive. LOCATION: Bilateral chest FINDINGS: A single view of the chest demonstrates bilateral airspace disease with some improving aeration in th e bases Heart size remains prominent. Endotracheal and nasogastric tubes are unchanged in position. Calcific density overlies the soft tissues of the left shoulder. Similar findings are identified on the right and are unchanged. CONCLUSION: 1. Bilateral airspace disease with possibly some improving aeration in the lung bases. 2. Stable cardiomegaly. Stable position of life support tubes. 3. Stable calcifications overlying the soft tissues of the shoulders symmetrically and bilaterally. F indings are nonspecific and can represent entities such as dystrophic soft tissue calcifications, idi opathic tumoral calcinosis myositis ossificans as well as scleroderma and dermatomyositis. Findings a re overtly benign, however Rogelio Santos MD on August 09, 2017 at 11:55 Board Certified Radiologist. This report was verified electronically.
[2017-08-09 12:34] LABS: BASOPHIL % 0.1 % (0.0-2.0); HEMATOCRIT 34.9 % (35.0-46.0); HEMOGLOBIN 11.5 GM/DL (11.6-15.3); LYMPH % 2.2 % (9.0-44.0); LYMPHOCYTE # 0.3 TH/MM3 (1.0-4.8); MEAN CELL VOLUME 98.1 FL (80.0-100.0); MEAN CORPUSCULAR HEMOGLOBIN 32.3 PG (27.0-34.0); MEAN CORPUSCULAR HGB CONC 32.9 % (32.0-36.0); MEAN PLATELET VOLUME 8.8 FL (7.0-11.0); MONO % 2.1 % (0.0-8.0); MONOCYTE # 0.3 TH/MM3 (0-0.9); NEUT % 95.6 % (16.0-70.0); PLATELET COUNT 164 TH/MM3 (150-450); RED BLOOD COUNT 3.55 MIL/MM3 (4.00-5.30); WHITE BLOOD COUNT 15.7 TH/MM3 (4.0-11.0)
[2017-08-09 12:45] LABS: ALBUMIN 1.9 GM/DL (3.4-5.0); ALT (GPT) 445 U/L (10-53); AST (GOT) 88 U/L (15-37); BICARBONATE 23.8 MEQ/L (21.0-32.0); BLOOD UREA NITROGEN 61 MG/DL (7-18); CALCIUM 8.1 MG/DL (8.5-10.1); CHLORIDE 102 MEQ/L (98-107); CREATININE 2.78 MG/DL (0.50-1.00); GLOMERULAR FILTRATION RATE 17 ML/MIN (>89); GLUCOSE,RANDOM 144 MG/DL (74-106); SODIUM (NA) 139 MEQ/L (136-145)
[2017-08-09 12:49] LABS: ALKALINE PHOSPHATASE 204 U/L (45-117); TOTAL BILIRUBIN ADULT 0.7 MG/DL (0.2-1.0); TOTAL PROTEIN 9.5 GM/DL (6.4-8.2)
--- NOTE | 2017-08-09 15:23 | HHI.IDPN ---
Note Infectious Disease Note Patient is awake on the ventilator. Responsive. Face is puffy. Had trial of CPAP today. Afebrile. Brother at bedside. Think she is more awake today than previous. 76-year-old white female who presented [facility] the Emergency Department from [facility] with respiratory distress. She was noted to be complaining also of chest discomfort. The patient was intubated and is currently on a ventilator. In the emergency department, the patient had heart rate of 144, temperature 100.9 and respiratory rate of 53. Lactic acid level was 9.4. She was recently diagnosed with acute renal failure at [facility] and was transferred to a prison facility upon discharge there on 08/02/2017 . Evaluated at [facility] for altered mental status and also acute kidney disease. The patient has a history of recent surgery at [facility] in [place]. She underwent removal of hardware from the lumbosacral spine L1-S1 because of exposed loosened hardware from prior surgery. She reportedly had surgery of the lumbosacral spine 10 years prior. The surgery at [facility] was on 06/27. Intraoperative culture reportedly had MRSA. She was put on antibiotics by infectious disease to complete on 07/29/2017. She was receiving intravenous vancomycin. She was seen by infectious disease physician at [facility] where she was noted to have acute renal failure. 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 PAST MEDICAL HISTORY: 1. L4-S1 fusion. Recent hardware removal. 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 The patient noted to have loosened hardware 2. Atrial fibrillation. 3. COPD, 4. Plasmacytoma, 5. Anemia, 6. Osteoarthritis, 7. Appendectomy, 8. Hysterectomy, 9. Tonsillectomy, 10. Cholecystectomy, 11. Gastroesophageal reflux disease surgery. ALLERGIES: VANCOMYCIN, ALBUTEROL, GABAPENTIN, IPRATROPIUM, IRON, PENICILLIN G, PROCHLORPERAZINE MEDICATIONS: Current Medications Medications (Trade) Dose Ordered Sig/Jayne Route PRN Reason Start Time Stop Time Status Last Admin Dose Admin Metoprolol Tartrate (Lopressor Inj) 5 mg Q5M PRN IV PUSH HR > 100 08/03/17 16:45 08/08/17 16:20 Ascorbic Acid (Vitamin C) 500 mg DAILY PO 08/04/17 09:00 08/09/17 09:28 Cyclobenzaprine HCl (Flexeril) 10 mg Q8HR PRN PO Muscle Cramps 08/03/17 19:45 Fluticasone Propionate (Flonase Harvey Spr) 1 spray Q12HR EACH NARE 08/03/17 21:00 Future Hold 08/07/17 09:08 Morphine Sulfate (Oramorph Sr) 15 mg Q12HR PO 08/03/17 21:00 Future Hold 08/04/17 07:57 Morphine Sulfate (Msir) 15 mg Q4H PRN PO Moderate Pain 08/03/17 19:45 Future Hold Sodium Chloride (NS Flush) 10 ml Q8HR IV FLUSH 08/03/17 22:00 08/09/17 14:00 Zinc Sulfate (Zinc Sulfate) 220 mg DAILY PO 08/04/17 09:00 08/09/17 09:28 Sodium Chloride (NS Flush) 2 ml UNSCH PRN IV FLUSH FLUSH AFTER USING IV ACCESS 08/03/17 20:00 Sodium Chloride (NS Flush) 2 ml BID IV FLUSH 08/03/17 21:00 08/08/17 21:36 Morphine Sulfate (Morphine Inj) 2 mg Q2H PRN IV PUSH PAIN SCALE 6 TO 10 08/03/17 20:00 Future Hold 08/04/17 05:14 Ondansetron HCl (Zofran Inj) 4 mg Q6H PRN IV PUSH NAUSEA OR VOMITING 08/03/17 20:00 Heparin Sodium (Porcine) (Heparin Inj) 5,000 units Q8H SQ 08/03/17 20:00 Future Hold 08/04/17 05:13 [place]iscellaneous Information [place] [place] [facility] [place] 1 [id number] XX 08/03/17 20:00 08/03/17 22:46 Chlorhexidine Gluconate (Chlorhexidine 2% Cloth) Taper DAILY@04 TOP 08/04/17 04:00 07/31/18 03:59 08/08/17 05:11 Chlorhexidine Gluconate (Chlorhexidine 2% Cloth) 3 pack UNSCH PRN TOP HYGIENIC CARE 08/03/17 20:00 Senna/Docusate Sodium (Dina-Colace) 1 tab BID PO 08/03/17 21:00 08/09/17 09:27 Magnesium Hydroxide (Milk Of Magnesia Liq) 30 ml Q12H PRN PO Mild constipation 08/03/17 20:00 Sennosides (Senokot) 17.2 mg Q12H PRN PO Moderate constipation 08/03/17 20:00 Bisacodyl (Dulcolax Supp) 10 mg DAILY PRN RECTAL SEVERE CONSITIPATION 08/03/17 20:00 Lactulose (Lactulose Liq) 30 ml DAILY PRN PO SEVERE CONSITIPATION 08/03/17 20:00 Pharmacy Profile Note 0 ml @ 0 mls/hr UNSCH OTHER 08/04/17 03:45 Diltiazem HCl (Cardizem) 60 mg Q8HR PO 08/04/17 10:45 08/09/17 14:00 Fentanyl Citrate 250 ml @ 5 mls/hr TITRATE PRN IV SEDATION 08/04/17 10:30 08/09/17 11:00 Chlorhexidine Gluconate (Peridex 0.12% Liq) 15 ml BID@08,20 MT 08/04/17 20:00 08/09/17 08:00 Ipratropium [place] (Atrovent Neb) 0.5 mg Q6HR NEB NEB 08/04/17 16:00 Aztreonam 1000 mg/ Sodium Chloride 100 ml @ 200 mls/hr Q12H IV 08/04/17 17:00 08/09/17 05:22 Daptomycin 500 mg/ Sodium Chloride 100 ml @ 200 mls/hr Q48H IV 08/06/17 11:00 08/08/17 10:56 Famotidine (Pepcid) 10 mg BID PO 08/05/17 21:00 08/09/17 09:28 Fluconazole/ Sodium Chloride 100 ml @ 100 mls/hr Q24H IV 08/06/17 15:00 08/20/17 14:59 08/08/17 15:00 Artificial Tears (Tears Naturale Opth Soln) 1 drop Q8HR EACH EYE 08/07/17 14:00 08/09/17 12:54 Acetaminophen (Tylenol 650 Mg/ 20 ml Liq) 650 mg Q6H PRN PO fever 08/07/17 14:00 Mupirocin (Bactroban Nasal 2% Oint) 1 applic Taper BID EACH NARE 08/07/17 21:00 08/03/18 20:59 08/09/17 09:00 Lactulose (Lactulose Liq) 30 ml Q12HR PO 08/07/17 21:00 08/09/17 09:27 Warfarin Sodium (Coumadin) 2 mg DAILY@1600 PO 08/07/17 16:00 Future Hold 08/07/17 15:37 Labetalol HCl (Trandate Inj) 10 mg Q1HR PRN IV PUSH SBP>170, DBP>90, HR>65 08/08/17 15:15 Hydralazine HCl (Apresoline Inj) 10 mg Q1HR PRN IV PUSH SBP>170, DBP>90 08/08/17 15:15 08/08/17 16:18 Nitroglycerin (Nitroglycerin 2% Oint) 2 inch Q6HR PRN TOPICAL SBP>170, DBP>90 08/08/17 15:15 Dexamethasone Sodium Phosphate (Decadron Inj) 4 mg Q6HR IV PUSH 08/09/17 12:00 08/10/17 11:59 08/09/17 12:00 Objective: Vital Signs Date Time Temp Pulse Resp B/P (MAP) Pulse Ox O2 Delivery O2 Flow Rate FiO2 08/09/17 14:00 80 08/09/17 12:15 95 35 08/09/17 12:00 98.8 95 16 138/65 (89) 96 08/09/17 12:00 35 08/09/17 12:00 80 08/09/17 10:00 80 08/09/17 08:08 96 35 08/09/17 08:08 35 08/09/17 08:00 35 08/09/17 08:00 98.8 87 16 164/77 (106) 96 08/09/17 08:00 80 08/09/17 06:00 80 08/09/17 04:42 100 35 08/09/17 04:00 71 08/09/17 04:00 35 08/09/17 04:00 98.5 71 16 124/63 (83) 96 08/09/17 02:00 72 08/09/17 00:32 95 35 08/09/17 00:00 98.9 71 11 127/61 (83) 95 08/09/17 00:00 35 08/09/17 00:00 71 08/08/17 22:00 79 08/08/17 20:50 96 35 08/08/17 20:00 106 08/08/17 20:00 35 08/08/17 20:00 99.9 106 24 161/73 (102) 95 08/08/17 18:00 78 08/08/17 16:00 35 08/08/17 16:00 78 08/08/17 16:00 99.0 77 16 155/74 (101) 97 08/08/17 15:49 92 35 Laboratory Tests Test 08/08/17 05:35 08/09/17 12:13 White Blood Count 16.3 TH/MM3 15.7 TH/MM3 Red Blood Count 3.04 MIL/MM3 3.55 MIL/MM3 Hemoglobin 9.9 GM/DL 11.5 GM/DL Hematocrit 29.2 % 34.9 % Mean Corpuscular Volume 96.0 FL 98.1 FL Mean Corpuscular Hemoglobin 32.5 PG 32.3 PG Mean Corpuscular Hemoglobin Concent 33.9 % 32.9 % Red Cell Distribution Width 17.6 % 18.0 % Platelet Count 143 TH/MM3 164 TH/MM3 Mean Platelet Volume 8.2 FL 8.8 FL Neutrophils (%) (Auto) 91.0 % 95.6 % Lymphocytes (%) (Auto) 1.6 % 2.2 % Monocytes (%) (Auto) 6.6 % 2.1 % Eosinophils (%) (Auto) 0.5 % 0.0 % Basophils (%) (Auto) 0.3 % 0.1 % Neutrophils # (Auto) 14.8 TH/MM3 15.0 TH/MM3 Lymphocytes # (Auto) 0.3 TH/MM3 0.3 TH/MM3 Monocytes # (Auto) 1.1 TH/MM3 0.3 TH/MM3 Eosinophils # (Auto) 0.1 TH/MM3 0.0 TH/MM3 Basophils # (Auto) 0.0 TH/MM3 0.0 TH/MM3 CBC Comment DIFF FINAL AUTO DIFF Differential Comment AUTO DIFF CONFIRMED Laboratory Tests Test 08/08/17 05:35 08/09/17 12:13 Blood Urea Nitrogen 58 MG/DL 61 MG/DL Creatinine 2.94 MG/DL 2.78 MG/DL Random Glucose 143 MG/DL 144 MG/DL Total Protein 7.2 GM/DL 9.5 GM/DL Albumin 1.7 GM/DL 1.9 GM/DL Calcium Level 7.5 MG/DL 8.1 MG/DL Phosphorus Level 3.4 MG/DL Magnesium Level 1.8 MG/DL Alkaline Phosphatase 184 U/L 204 U/L Aspartate Amino Transf (AST/SGOT) 256 U/L 88 U/L Alanine Aminotransferase (ALT/SGPT) 747 U/L 445 U/L Lactate Dehydrogenase 253 U/L Total Bilirubin 0.8 MG/DL 0.7 MG/DL Sodium Level 143 MEQ/L 139 MEQ/L Potassium Level 3.7 MEQ/L 3.7 MEQ/L Chloride Level 106 MEQ/L 102 MEQ/L Carbon Dioxide Level 27.4 MEQ/L 23.8 MEQ/L Anion Gap 10 MEQ/L 13 MEQ/L Estimat Glomerular Filtration Rate 16 ML/MIN 17 ML/MIN Lactic Acid Level 1.6 mmol/L Ammonia 17 MCMOL/L Total Creatine Kinase 27 U/L Triglycerides Level 84 MG/DL Cholesterol Level 69 MG/DL LDL Cholesterol 34 MG/DL HDL Cholesterol 17.8 MG/DL Cholesterol/HDL Ratio 3.87 RATIO Lipase 284 U/L Imaging: Chest X-Ray 08/09/17 0000 Signed Impressions: Service Date/Time: Wednesday, August 09, 2017 11:34 - CONCLUSION: 1. Bilateral airspace disease with possibly some improving aeration in the lung bases. 2. Stable cardiomegaly. Stable position of life support tubes. 3. Stable calcifications overlying the soft tissues of the shoulders symmetrically and bilaterally. Findings are nonspecific and can represent entities such as dystrophic soft tissue calcifications, idiopathic tumoral calcinosis myositis ossificans as well as scleroderma and dermatomyositis. Findings are overtly benign, however Rogelio Santos MD Chest X-Ray 08/08/17 06 Signed Impressions: Service Date/Time: Tuesday, August 08, 2017 04:32 - CONCLUSION: Significant consolidation throughout both lungs. Cardiomegaly and pleural effusions persist.. Joseph Toro MD Chest X-Ray 08/07/17 06 Signed Impressions: Service Date/Time: Monday, August 07, 2017 03:10 - CONCLUSION: No significant change Sterilng Aguilar MD Chest X-Ray 08/05/17 0600 Signed Impressions: Service Date/Time: Saturday, August 05, 2017 04:54 - CONCLUSION: Normal placement of nasogastric tube. Grossly stable aeration Sterling Aguilar MD Lumbar Spine CT 08/04/17 0000 Signed Impressions: Service Date/Time: August 13:46 - CONCLUSION: 1. There is low density in the soft tissues at the recent laminectomy site L4-L5 measuring up to 2.4 cm in thickness with out deformity of the posterior thecal sac at the laminectomy site. 2. Stable anterolisthesis at L5-S1 with bony fusion. 3. 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 Maykel Singh MD Abdomen/Pelvis CT 08/04/17 0000 Signed Impressions: Service Date/Time: August 13:46 - CONCLUSION: 1. There is stool diffusely throughout the colon suggesting constipation. 2. The solid organs of the abdomen are grossly intact. 3. No free air free fluid seen within the abdomen. No abscess is identified. 4. Small amount of free fluid within the abdomen. 5. Bilateral pleural effusions and consolidation. 6. Cardiomegaly. 7. 2 mm nonobstructing stone in the lower pole collecting system of the right kidney. 8. Anasarca. Mil Toro MD Abdomen Fluoroscopy 08/04/17 0000 Signed Impressions: Service Date/Time: August 17:00 - CONCLUSION: Uncomplicated nasoenteric suction type catheter (NGT) placement as above. Librado Hernandez MD PHYSICAL EXAMINATION: GENERAL: Awake and alert. HEENT: The head is atraumatic. Diffuse edema of the face. Extraocular movements appear intact. Oropharynx intubated. Mucosa appears moist. NECK: No swelling or adenopathy. LUNGS: Rhonchi at both bases. HEART: Irregular S1 and S2. No audible murmurs, rubs or gallops. ABDOMEN: Slightly distended, soft, decreased bowel sounds. BACK: KAY drainage catheter exits the back and has scant jean-paul drainage. EXTREMITIES: No clubbing, cyanosis or edema. SKIN: No rash. NEUROLOGIC: Unable to fully assess. PSYCHIATRIC: Unable to fully assess. IMPRESSION: 1. Septic shock. Appears improved. 2. Acute hypercapnic respiratory failure. 3. Acute renal failure. 4. Shock liver, probably from sepsis. LFTs improving. 5. Lung infiltrate. 6. Osteomyelitis of the lumbar spine. Patient was placed on IV antibiotics By ID at [facility]. The patient is status post hardware removal from the lumbar spine and noted to have methicillin-resistant Staph aureus on culture. She received a course of IV vancomycin which was completed on 07/29/2017. 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 Has drain in place at the lumbar spine. She was due to have an appointment at [facility] in [place] later this month to assess the lumbar wound and possibly remove the lumbar drainage catheter. 6. Candiduria. Patient looks stable. Hopefully can extubate soon. RECOMMENDATIONS: 1. Continue the Daptomycin at q 48 hour interval. 2. Continue Azactam. 3. Continue Diflucan. 4. Follow the white blood cell count. 5. Monitor clinical status. 6. Ventilator weaning to be determined by CCM. Discussed with patient's brother at bedside. Discussed with RN. Dion Wing MD August 09, 2017 15:23
[2017-08-09] MEDS: FLUCONAZOLE 200 MG PREMIX BAG 100 ML IV SCH (15:37)
[2017-08-10] VITALS (18 sets, daily range): BP systolic 140–157; BP diastolic 67–80; PULSE 74–97; RESP 15–21; TEMP 98.4–98.6; O2SAT 96–98
[2017-08-10] MEDS: DEXAMETHASONE SOD PHOS 4 MG/ML VIAL IV PUSH SCH ×2 (00:12→04:58)
[2017-08-10] MEDS: fentaNYL DRIP 250 ML IV PRN ×3 (02:33→22:54)
[2017-08-10] MEDS: CHLORHEXIDINE GLUCONATE 2 % 1 PACK (2 CLOTHS) TOP SCH (03:48)
[2017-08-10] MEDS: RESP: IPRATROPIUM 0.5 MG/2.5 ML NEB NEB SCH ×4 (04:00→19:53)
[2017-08-10] MEDS: AZTREONAM INJ 1,000 MG in SODIUM CHLORIDE 0.9% INJ 100 ML IV SCH ×2 (04:19→17:13)
[2017-08-10] MEDS: SODIUM CHLORIDE 0.9% FLUSH 10 ML FLUSH IV FLUSH SCH ×5 (04:58→22:00)
[2017-08-10] MEDS: DILTIAZEM HCL 60 MG TAB PO SCH ×3 (04:58→22:27)
[2017-08-10] MEDS: ARTIFICIAL TEARS OPTH SOLN 15 ML BTL EACH EYE SCH ×3 (04:58→22:28)
[2017-08-10 07:14] LABS: AUTOMATED NEUTROPHIL # 11.2 TH/MM3 (1.8-7.7); BASOPHIL % 0.1 % (0.0-2.0); HEMATOCRIT 27.8 % (35.0-46.0); HEMOGLOBIN 9.2 GM/DL (11.6-15.3); LYMPH % 1.4 % (9.0-44.0); LYMPHOCYTE # 0.2 TH/MM3 (1.0-4.8); MEAN CORPUSCULAR HEMOGLOBIN 32.3 PG (27.0-34.0); MEAN CORPUSCULAR HGB CONC 33.3 % (32.0-36.0); MEAN PLATELET VOLUME 8.6 FL (7.0-11.0); MONO % 3.1 % (0.0-8.0); MONOCYTE # 0.4 TH/MM3 (0-0.9); NEUT % 95.4 % (16.0-70.0); PLATELET COUNT 169 TH/MM3 (150-450); RED BLOOD COUNT 2.86 MIL/MM3 (4.00-5.30); RED CELL DISTRIBUTION WIDTH 18.1 % (11.6-17.2); WHITE BLOOD COUNT 11.8 TH/MM3 (4.0-11.0)
[2017-08-10 07:50] LABS: ALBUMIN 1.6 GM/DL (3.4-5.0); BICARBONATE 26.3 MEQ/L (21.0-32.0); CALCIUM 7.4 MG/DL (8.5-10.1); CALCIUM-PROTEIN CORRECTED 7.6 MG/DL (8.5-10.1); CREATININE 2.54 MG/DL (0.50-1.00); MAGNESIUM 1.9 MG/DL (1.5-2.5); PHOSPHORUS 4.5 MG/DL (2.5-4.9); TOTAL BILIRUBIN ADULT 0.5 MG/DL (0.2-1.0); TOTAL PROTEIN 6.8 GM/DL (6.4-8.2)
[2017-08-10] MEDS: CHLORHEXIDINE 0.12% (ORAL KIT) 15 ML CUP MT SCH ×2 (08:45→22:26)
[2017-08-10] MEDS: MUPIROCIN 2% OINT 1 APPLIC/GM SYR EACH NARE SCH ×2 (08:47→22:27)
[2017-08-10] MEDS: FAMOTIDINE 20 MG TAB PO SCH ×2 (08:48→22:27)
[2017-08-10] MEDS: LACTULOSE SYRUP 20 GM/30 ML CUP PO SCH ×2 (08:48→22:27)
[2017-08-10] MEDS: DOCUSATE SODIUM 50 MG/SENNA 8.6 MG TAB PO SCH ×2 (08:49→22:27)
[2017-08-10] MEDS: ASCORBIC ACID 500 MG TAB PO SCH (08:50)
[2017-08-10] MEDS: ZINC SULFATE 220 MG CAP PO SCH (08:50)
[2017-08-10] MEDS ORDERED: CALCIUM GLUCONATE INJ 1 GM in SODIUM CHLORIDE 0.9% INJ 100 ML IV ONE (10:15)
[2017-08-10] MEDS: DAPTOmycin INJ 500 MG in SODIUM CHLORIDE 0.9% INJ 100 ML IV SCH (10:46)
--- NOTE | 2017-08-10 12:53 | HHI.HCPN ---
Reason for visit a. To assist with evaluation and management of symptoms including: dyspnea, pain b. To assist medical decision maker(s) with: better understanding of current medical conditions; weighing benefits/burdens of medical treatment options; making medical treatment decisions. (Angelica Barajas) Subjective/Interval History Patient seen today to follow-up on dyspnea, comfort. Stable continues CPAP trials today, no cuff leak yesterday per critical care. CXR yesterday = Bilateral airspace disease with possibly some improving aeration in the lung bases. WBC downtrending 13. Continued on daptomycin, Azactam, fluconazole per ID. BUN and creatinine remain elevated though stable. Tolerating tube feed. Having bowel movements per nursing reports patient more alert and writing some to communicate. Patient seen in room. Eyes are open. Nods to some questions. Follows commands , moves extremities very weakly. Review of hospitalization, communications with her brothvíctor Garcia, she nods in agreement with this. She endorses that she is hungry explained to her tube feeding showed her feeding container, she nods in agreement with this. Asked her about pain she indicates general pain via gesture, she is able to tell me with number of fingers number of pain she rates as 7 out of 10 primarily to her back at home it is usually a 5 out of 10 and she would like it to be a 5 out of town. Explore with her fentanyl in place, also reviewed with her prior dosing of long-acting morphine at home, she nods in agreement with this. Advised that we may be able to increase pain regimen however we are also balancing pain relief with sedating side effects for possible medical extubation. She nods seems to understand. Explore that she has been chronically ill and may require ongoing prolonged hospitalization to try to continue to treat her illness if she wanted that, she nodded yes. During my exam I actually received a voicemail from brother Jose requesting update. Following exam call back to further build provided him an update of current assessment, conditions, treatments in place, and that CPAP trials continue. All questions answered to the best of my ability. He remains hopeful patient will continue to improve. Discussed with primary nurse, critical care. . (Angelica Barajas) Advance Directives Living Will: Never completed Health Care Surrogate: Never completed Durable Power of Show Horse Driver: Never completed (Angelica Barajas) Objective Vital Signs Date Time Temp Pulse Resp B/P (MAP) Pulse Ox O2 Delivery O2 Flow Rate FiO2 08/10/17 11:22 97 35 08/10/17 10:00 91 08/10/17 08:00 80 08/10/17 08:00 35 08/10/17 08:00 98.5 80 16 140/70 (93) 97 08/10/17 07:47 97 35 08/10/17 06:00 74 08/10/17 04:39 97 35 08/10/17 04:00 91 08/10/17 04:00 98.4 91 17 152/80 (104) 97 08/10/17 04:00 35 08/10/17 02:00 95 08/10/17 00:26 97 35 08/10/17 00:00 97 08/10/17 00:00 98.4 97 15 140/73 (95) 98 08/10/17 00:00 35 08/09/17 22:15 98 35 08/09/17 22:00 105 08/09/17 20:00 100 08/09/17 20:00 35 08/09/17 20:00 98.8 100 17 141/75 (97) 97 08/09/17 18:00 80 08/09/17 16:00 98.8 97 16 145/67 (93) 96 08/09/17 16:00 80 08/09/17 16:00 96 35 08/09/17 16:00 35 08/09/17 14:00 80 Intake & Output 08/10/17 08/10/17 07:00 19:00 Intake Total 820 ml 100 ml Output Total 800 ml Balance 20 ml 100 ml IV Total 310 ml 100 ml Tube Feeding 360 ml Tube Irrigant 150 ml Output Urine Total 800 ml Physical Exam CONSTITUTIONAL/GENERAL: This is an adequately nourished patient, alert and nodding on mechanical vent TUBES/LINES/DRAINS: Midline iv left upper tremor. ET tube. NG tube. Soft restraints bilateral upper extremities. SKIN: No jaundice, rashes, or lesions. Very pale. Areas of redness and ecchymosis scattered to bilateral upper arms. Skin very thin, edema to bilateral upper extremities. Multiple healed graft scars noted to upper legs, several scars, clean dry dressings to bilateral lower legs. Skin warm/dry. CARDIOVASCULAR: Irregular rate and rhythm. Atrial fib observed. No JVD. Peripheral pulses symmetric-pedal pulses very faint. + 2+ edema bilateral upper extremities. RESPIRATORY/CHEST: Symmetric, unlabored respirations via mechanical vent. Clear to auscultation. Decreased air movement. GASTROINTESTINAL: Abdomen soft, no apparent tenderness though limited assessment , nondistended. No hepato-splenomegaly, or palpable masses. No guarding. Bowel sounds hypoactive. Tube feed infusing via OG tube. GENITOURINARY: Without palpable bladder distension. Catheter in place clear yellow urine. MUSCULOSKELETAL: Extremities without clubbing, cyanosis, or edema. Healed graft scars to upper legs. Dressings to lower legs. Lower legs are very thin, with significant muscle atrophy. Arthritic appearing deformity to feet. Kyphotic posture, leaning forward in bed. NEUROLOGICAL: Alert nods to yes/no questions. Able to gesture some weakly with hands. Appears oriented to person, place and family. Limited further assessment due to communication barriers. Cooperative, moving all 4 extremities very weakly. PSYCHIATRIC: No obvious anxiety/depression--limited assessment secondary to clinical condition. . (Angelica Barajas) Diagnostic Tests Laboratory Laboratory Tests Test 08/08/17 05:35 08/09/17 06:42 08/09/17 12:13 08/10/17 06:21 White Blood Count 16.3 TH/MM3 (4.0-11.0) 15.7 TH/MM3 (4.0-11.0) 11.8 TH/MM3 (4.0-11.0) Red Blood Count 3.04 MIL/MM3 (4.00-5.30) 3.55 MIL/MM3 (4.00-5.30) 2.86 MIL/MM3 (4.00-5.30) Hemoglobin 9.9 GM/DL (11.6-15.3) 11.5 GM/DL (11.6-15.3) 9.2 GM/DL (11.6-15.3) Hematocrit 29.2 % (35.0-46.0) 34.9 % (35.0-46.0) 27.8 % (35.0-46.0) Mean Corpuscular Volume 96.0 FL (80.0-100.0) 98.1 FL (80.0-100.0) 97.0 FL (80.0-100.0) Mean Corpuscular Hemoglobin 32.5 PG (27.0-34.0) 32.3 PG (27.0-34.0) 32.3 PG (27.0-34.0) Mean Corpuscular Hemoglobin Concent 33.9 % (32.0-36.0) 32.9 % (32.0-36.0) 33.3 % (32.0-36.0) Red Cell Distribution Width 17.6 % (11.6-17.2) 18.0 % (11.6-17.2) 18.1 % (11.6-17.2) Platelet Count 143 TH/MM3 (150-450) 164 TH/MM3 (150-450) 169 TH/MM3 (150-450) Mean Platelet Volume 8.2 FL (7.0-11.0) 8.8 FL (7.0-11.0) 8.6 FL (7.0-11.0) Neutrophils (%) (Auto) 91.0 % (16.0-70.0) 95.6 % (16.0-70.0) 95.4 % (16.0-70.0) Lymphocytes (%) (Auto) 1.6 % (9.0-44.0) 2.2 % (9.0-44.0) 1.4 % (9.0-44.0) Monocytes (%) (Auto) 6.6 % (0.0-8.0) 2.1 % (0.0-8.0) 3.1 % (0.0-8.0) Eosinophils (%) (Auto) 0.5 % (0.0-4.0) 0.0 % (0.0-4.0) 0.0 % (0.0-4.0) Basophils (%) (Auto) 0.3 % (0.0-2.0) 0.1 % (0.0-2.0) 0.1 % (0.0-2.0) Neutrophils # (Auto) 14.8 TH/MM3 (1.8-7.7) 15.0 TH/MM3 (1.8-7.7) 11.2 TH/MM3 (1.8-7.7) Lymphocytes # (Auto) 0.3 TH/MM3 (1.0-4.8) 0.3 TH/MM3 (1.0-4.8) 0.2 TH/MM3 (1.0-4.8) Monocytes # (Auto) 1.1 TH/MM3 (0-0.9) 0.3 TH/MM3 (0-0.9) 0.4 TH/MM3 (0-0.9) Eosinophils # (Auto) 0.1 TH/MM3 (0-0.4) 0.0 TH/MM3 (0-0.4) 0.0 TH/MM3 (0-0.4) Basophils # (Auto) 0.0 TH/MM3 (0-0.2) 0.0 TH/MM3 (0-0.2) 0.0 TH/MM3 (0-0.2) CBC Comment DIFF FINAL AUTO DIFF DIFF FINAL Differential Comment AUTO DIFF CONFIRMED Prothrombin Time 27.5 SEC (9.8-11.6) 36.3 SEC (9.8-11.6) Prothromb Time International Ratio 2.7 RATIO 3.6 RATIO Activated Partial Thromboplast Time 48.7 SEC (24.3-30.1) Blood Urea Nitrogen 58 MG/DL (7-18) 61 MG/DL (7-18) 65 MG/DL (7-18) Creatinine 2.94 MG/DL (0.50-1.00) 2.78 MG/DL (0.50-1.00) 2.54 MG/DL (0.50-1.00) Random Glucose 143 MG/DL (74-106) 144 MG/DL (74-106) 142 MG/DL (74-106) Total Protein 7.2 GM/DL (6.4-8.2) 9.5 GM/DL (6.4-8.2) 6.8 GM/DL (6.4-8.2) Albumin 1.7 GM/DL (3.4-5.0) 1.9 GM/DL (3.4-5.0) 1.6 GM/DL (3.4-5.0) Calcium Level 7.5 MG/DL (8.5-10.1) 8.1 MG/DL (8.5-10.1) 7.4 MG/DL (8.5-10.1) Phosphorus Level 3.4 MG/DL (2.5-4.9) 4.5 MG/DL (2.5-4.9) Magnesium Level 1.8 MG/DL (1.5-2.5) 1.9 MG/DL (1.5-2.5) Alkaline Phosphatase 184 U/L (45-117) 204 U/L (45-117) 142 U/L (45-117) Aspartate Amino Transf (AST/SGOT) 256 U/L (15-37) 88 U/L (15-37) 51 U/L (15-37) Alanine Aminotransferase (ALT/SGPT) 747 U/L (10-53) 445 U/L (10-53) 322 U/L (10-53) Lactate Dehydrogenase 253 U/L (84-246) Total Bilirubin 0.8 MG/DL (0.2-1.0) 0.7 MG/DL (0.2-1.0) 0.5 MG/DL (0.2-1.0) Sodium Level 143 MEQ/L (136-145) 139 MEQ/L (136-145) 140 MEQ/L (136-145) Potassium Level 3.7 MEQ/L (3.5-5.1) 3.7 MEQ/L (3.5-5.1) 3.7 MEQ/L (3.5-5.1) Chloride Level 106 MEQ/L (98-107) 102 MEQ/L (98-107) 104 MEQ/L (98-107) Carbon Dioxide Level 27.4 MEQ/L (21.0-32.0) 23.8 MEQ/L (21.0-32.0) 26.3 MEQ/L (21.0-32.0) Anion Gap 10 MEQ/L (5-15) 13 MEQ/L (5-15) 10 MEQ/L (5-15) Estimat Glomerular Filtration Rate 16 ML/MIN (>89) 17 ML/MIN (>89) 18 ML/MIN (>89) Lactic Acid Level 1.6 mmol/L (0.4-2.0) Ammonia 17 MCMOL/L (11-32) Total Creatine Kinase 27 U/L (26-192) Triglycerides Level 84 MG/DL (42-150) Cholesterol Level 69 MG/DL (120-200) LDL Cholesterol 34 MG/DL (0-99) HDL Cholesterol 17.8 MG/DL (40.0-60.0) Cholesterol/HDL Ratio 3.87 RATIO Lipase 284 U/L (73-393) Protein Corrected Calcium 7.6 MG/DL (8.5-10.1) (JennAngelica) Result Diagram: 08/10/1762008/10/17620 Microbiology Microbiology Date/Time Source Procedure Growth Status 08/03/17 20:00 Blood Peripheral Aerobic Blood Culture - Final NO GROWTH IN 5 DAYS Complete 08/03/17 20:00 Blood Peripheral Anaerobic Blood Culture - Final NO GROWTH IN 5 DAYS Complete 08/03/17 15:55 Urine Catheterized Urine Urine Culture - Final Denise Glabrata Complete Imaging Last Impressions Chest X-Ray 08/09/17 0000 Signed Impressions: Service Date/Time: Wednesday, August 09, 2017 11:34 - CONCLUSION: 1. Bilateral airspace disease with possibly some improving aeration in the lung bases. 2. Stable cardiomegaly. Stable position of life support tubes. 3. Stable calcifications overlying the soft tissues of the shoulders symmetrically and bilaterally. Findings are nonspecific and can represent entities such as dystrophic soft tissue calcifications, idiopathic tumoral calcinosis myositis ossificans as well as scleroderma and dermatomyositis. Findings are overtly benign, however Rogelio Santos MD Lumbar Spine CT 08/04/17 0000 Signed Impressions: Service Date/Time: August 13:46 - CONCLUSION: 1. There is low density in the soft tissues at the recent laminectomy site L4-L5 measuring up to 2.4 cm in thickness with out deformity of the posterior thecal sac at the laminectomy site. 2. Stable anterolisthesis at L5-S1 with bony fusion. 3. 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 Maykel Singh MD Abdomen/Pelvis CT 08/04/17 0000 Signed Impressions: Service Date/Time: August 13:46 - CONCLUSION: 1. There is stool diffusely throughout the colon suggesting constipation. 2. The solid organs of the abdomen are grossly intact. 3. No free air free fluid seen within the abdomen. No abscess is identified. 4. Small amount of free fluid within the abdomen. 5. Bilateral pleural effusions and consolidation. 6. Cardiomegaly. 7. 2 mm nonobstructing stone in the lower pole collecting system of the right kidney. 8. Anasarca. Mil Toro MD Abdomen Fluoroscopy 08/04/17 0000 Signed Impressions: Service Date/Time: August 17:00 - CONCLUSION: Uncomplicated nasoenteric suction type catheter (NGT) placement as above. Librado Hernandez MD Procedures 08/03/17 central line placed 08/04/17 intubated (Angelica Barajas) Assessment and Plan Disease Oriented Problem List: (1) Acute respiratory failure (2) CAD (coronary artery disease) (3) GERD (gastroesophageal reflux disease) (4) Anemia (5) Chest pain (6) Elevated troponin (7) Urinary tract infection (8) Sepsis (9) MRSA (methicillin resistant Staphylococcus aureus) septicemia (10) Atrial fibrillation with RVR (11) Hyperkalemia (12) Cardiomegaly (13) Hypoglycemia (14) Renal insufficiency (15) Metabolic acidosis (16) CKD (chronic kidney disease) stage 4, GFR 15-29 ml/min Symptom Scale: (1) Dyspnea 0-10 Scale: Unable to quantify (2) Pain 0-10 Scale: Unable to quantify Pertinent Non-Medical Issues 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 Not no children. Part of a very large family she has multiple siblings. She is closest with her brother Jose, who is local. Jose describes her as jessee and extremely kind and caring. 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 She may at some point regain ability to participate. Brother Jose indicates she has always listed him as primary contact, and has always indicated that she trusts him to make decisions when she cannot however he is not certain that she has completed any documentation of healthcare surrogate or advanced directives. Per [place] statutes legal decision making would fall to the majority of all of patient's siblings. Brother indicates that he has always been the one assisting her with medical needs, decisions. Will discuss with him further tomorrow and attempt to contact additional siblings to determine if they wish to participate in decision-making. 08/05/17 4 of 5 siblings defer to brother Jose. Ethical issues impacting care: None identified Important Contacts Brother Mark (oJse) Maria Isabel [phone] Sister Karrie defers to brother Jose Sister Malu defers to brother Jose Brother Sterling defers to brother Jose brother Gm defers to Bill Sister Itzel-- 08/08 defers to Jose . Prognosis This patient was admitted for respiratory distress, chest discomfort. She has had multiple recent hospitalizations and rehabilitation courses. Brother details that each time one condition stabilizes or improves she experiences another complication. She has required ongoing treatment for MRSA infection at a surgical site. Given her advanced age and multiple condition she does remain at risk for continued complications and decline and possibly . Code Status: Full Code Plan * Legal decision maker: Patient currently on mechanical vent, sedation unable to participate in decision-making. She may at some point regain ability to participate. Brothvíctor Garcia indicates she has always listed him as primary contact, and has always indicated that she trusts him to make decisions when she cannot however he is not certain that she has completed any documentation of healthcare surrogate or advanced directives. Per [place] statutes legal decision making would fall to the majority of all of patient's siblings. Brother indicates that he has always been the one assisting her with medical needs, decisions. Will discuss with him further tomorrow and attempt to contact additional siblings to determine if they wish to participate in decision -making. 08/05/17 brother Mark (Jose )called 4 of the 5 siblings each elected for him to serve as spokesperson for proxy decision-making. He left a voicemail for the fifth sibling Itzel. 08/08/17 call back from sister Itzel, who defers decision making/proxy to brother Jose. Jose willing to cont to serve as HC proxy. If patient is able to be medically extubated she may be able to participate in decision-making, and complete healthcare surrogate designation, palliative can assist with this if she is able. * Goals: Brother continues to express aggressive goals as consistent with patient known wishes. He is open to ongoing conversations as clinical course evolves. He is hopeful that the patient will improve with ongoing aggressive treatments. Patient today is more communicative also indicates she wishes to continue with treatments * CODE STATUS:Full code * SYMPTOMS: --dyspnea-admitted for respiratory distress. Worsening respiratory status, metabolic acidosis, intubated 08/04. She is currently breathing comfortably on mechanical vent. She is on sedation no asynchrony observed. CXR with slight improvement. CPAP trials ongoing. Treated with Decadron for edema, still reported with no cuff leak, weaning trials ongoing --Pain-patient appears comfortable at time of exam, currently unable to report pain however potential sources would include: Bedbound status, recent invasive procedure intubation, central line, multiple recent hospitalizations and surgical procedures, KAY to back still in place. She is noted to be on chronic morphine long-acting and short-acting prior to admission and has underwent multiple procedures and hospitalizations recently so likely has some underlying chronic pain. She was initially started on on fentanyl drip --this is currently at 200 mics/hour. Today she does indicate that she has chronic pain, primarily to her back, baseline pain level is 5 out of 10 which she feels is reasonable, however today she feels it is 7 out of 10. I did explore with her balancing sedation versus pain relief she understands this. Discussed with nursing, critical care may up titrate fentanyl. She is chronically on morphine extended release 15 mg every 12 hours, as well as morphine 15 mg prn for breakthrough pain; appears she is not opiate salomón may need additional pain regimen as clinical course goes forward. Will continue to evaluate. * Palliative care will continue to follow during hospital course as condition evolves, to assist patient/decision-maker with understanding of medical conditions, weighing benefits/burdens of treatment options, for clarification of goals of treatment. Additionally will assist with any symptoms of palliative concern . (Angelica Barajas) Time Spent Total Floor Time (mins): 30 (Chart review, PE, discussion with patient, discussion with family, discussion with nursing and critical care) (Angelica Barajas) Attestation To help prompt me to consider important information that might be impacting today's encounter and assessment, information from prior notes written by myself or my colleagues may have been "brought forward" into today's note. My signature on this note, however, is an attestation that I personally performed the exam, history, and/or decision-making noted today, and, unless otherwise indicated, the interactions with patient, family, and staff as well as the review of records all occurred today. I also attest that the listed assessment and stated plan reflect my best clinical judgment today based on the combination of historical information, prior notes, and today's exam/ interactions. When time spent is documented, it refers only to time spent today by the signer, or if indicated, combined time spent today by collaborating physician/nurse practitioner. (Angelica Barajas) Collaborating MD Comments Chart reviewed. Case discussed with palliative care nurse practitioner. Above AISLINN note reviewed and I concur. . (Arnulfo Jacques MD) Angelica Barajas August 10, 2017 12:53 Arnulfo Jacques MD Sep 10, 2017 15:01
--- NOTE | 2017-08-10 13:06 | HHI.IDPN ---
Note Infectious Disease Note Patient is very alert and awake. On the vent. CPAP in progress. She is responding appropriately. The face is less puffy. Afebrile. 76-year-old white female who [facility] with [facility] distress. She was noted to be complaining also of chest discomfort. The patient was intubated and is currently on a ventilator. In the emergency department, the patient had heart rate of 144, temperature 100.9 and respiratory rate of 53. Lactic acid level was 9.4. She was recently diagnosed with acute renal failure at [facility], [place] and was transferred to a jail facility upon discharge there on 08/02/2017 . Evaluated at [facility] for altered mental status and also acute kidney disease. The patient has a history of recent surgery at [facility] in [place]. She underwent removal of hardware from the lumbosacral spine L1-S1 because of exposed loosened hardware from prior surgery. She reportedly had surgery of the lumbosacral spine 10 years prior. The surgery at [facility] was on 06/27. Intraoperative culture reportedly had MRSA. She was put on antibiotics by infectious disease to complete on 07/29/2017. She was receiving intravenous vancomycin. She was seen by infectious disease physician at [facility] where she was noted to have acute renal failure. 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 PAST MEDICAL HISTORY: 1. L4-S1 fusion. Recent hardware removal. 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 The patient noted to have loosened hardware 2. Atrial fibrillation. 3. COPD, 4. Plasmacytoma, 5. Anemia, 6. Osteoarthritis, 7. Appendectomy, 8. Hysterectomy, 9. Tonsillectomy, 10. Cholecystectomy, 11. Gastroesophageal reflux disease surgery. ALLERGIES: VANCOMYCIN, ALBUTEROL, GABAPENTIN, IPRATROPIUM, IRON, PENICILLIN G, PROCHLORPERAZINE Antibiotics: Aztreonam. Daptomycin. Diflucan. Objective: Vital Signs Date Time Temp Pulse Resp B/P (MAP) Pulse Ox O2 Delivery O2 Flow Rate FiO2 08/10/17 12:00 35 08/10/17 11:22 97 35 08/10/17 10:00 91 08/10/17 08:00 80 08/10/17 08:00 35 08/10/17 08:00 98.5 80 16 140/70 (93) 97 08/10/17 07:47 97 35 08/10/17 06:00 74 08/10/17 04:39 97 35 08/10/17 04:00 91 08/10/17 04:00 98.4 91 17 152/80 (104) 97 08/10/17 04:00 35 08/10/17 02:00 95 08/10/17 00:26 97 35 08/10/17 00:00 97 08/10/17 00:00 98.4 97 15 140/73 (95) 98 08/10/17 00:00 35 08/09/17 22:15 98 35 08/09/17 22:00 105 08/09/17 20:00 100 08/09/17 20:00 35 08/09/17 20:00 98.8 100 17 141/75 (97) 97 08/09/17 18:00 80 08/09/17 16:00 98.8 97 16 145/67 (93) 96 08/09/17 16:00 80 08/09/17 16:00 96 35 08/09/17 16:00 35 08/09/17 14:00 80 Laboratory Tests Test 08/09/17 12:13 08/10/17 06:21 White Blood Count 15.7 TH/MM3 11.8 TH/MM3 Red Blood Count 3.55 MIL/MM3 2.86 MIL/MM3 Hemoglobin 11.5 GM/DL 9.2 GM/DL Hematocrit 34.9 % 27.8 % Mean Corpuscular Volume 98.1 FL 97.0 FL Mean Corpuscular Hemoglobin 32.3 PG 32.3 PG Mean Corpuscular Hemoglobin Concent 32.9 % 33.3 % Red Cell Distribution Width 18.0 % 18.1 % Platelet Count 164 TH/MM3 169 TH/MM3 Mean Platelet Volume 8.8 FL 8.6 FL Neutrophils (%) (Auto) 95.6 % 95.4 % Lymphocytes (%) (Auto) 2.2 % 1.4 % Monocytes (%) (Auto) 2.1 % 3.1 % Eosinophils (%) (Auto) 0.0 % 0.0 % Basophils (%) (Auto) 0.1 % 0.1 % Neutrophils # (Auto) 15.0 TH/MM3 11.2 TH/MM3 Lymphocytes # (Auto) 0.3 TH/MM3 0.2 TH/MM3 Monocytes # (Auto) 0.3 TH/MM3 0.4 TH/MM3 Eosinophils # (Auto) 0.0 TH/MM3 0.0 TH/MM3 Basophils # (Auto) 0.0 TH/MM3 0.0 TH/MM3 CBC Comment AUTO DIFF DIFF FINAL Differential Comment AUTO DIFF CONFIRMED Laboratory Tests Test 08/09/17 12:13 08/10/17 06:21 Blood Urea Nitrogen 61 MG/DL 65 MG/DL Creatinine 2.78 MG/DL 2.54 MG/DL Random Glucose 144 MG/DL 142 MG/DL Total Protein 9.5 GM/DL 6.8 GM/DL Albumin 1.9 GM/DL 1.6 GM/DL Calcium Level 8.1 MG/DL 7.4 MG/DL Alkaline Phosphatase 204 U/L 142 U/L Aspartate Amino Transf (AST/SGOT) 88 U/L 51 U/L Alanine Aminotransferase (ALT/SGPT) 445 U/L 322 U/L Total Bilirubin 0.7 MG/DL 0.5 MG/DL Sodium Level 139 MEQ/L 140 MEQ/L Potassium Level 3.7 MEQ/L 3.7 MEQ/L Chloride Level 102 MEQ/L 104 MEQ/L Carbon Dioxide Level 23.8 MEQ/L 26.3 MEQ/L Anion Gap 13 MEQ/L 10 MEQ/L Estimat Glomerular Filtration Rate 17 ML/MIN 18 ML/MIN Phosphorus Level 4.5 MG/DL Magnesium Level 1.9 MG/DL Protein Corrected Calcium 7.6 MG/DL Imaging: Chest X-Ray 08/09/17 0000 Signed Impressions: Service Date/Time: Wednesday, August 09, 2017 11:34 - CONCLUSION: 1. Bilateral airspace disease with possibly some improving aeration in the lung bases. 2. Stable cardiomegaly. Stable position of life support tubes. 3. Stable calcifications overlying the soft tissues of the shoulders symmetrically and bilaterally. Findings are nonspecific and can represent entities such as dystrophic soft tissue calcifications, idiopathic tumoral calcinosis myositis ossificans as well as scleroderma and dermatomyositis. Findings are overtly benign, however Rogelio Santos MD Chest X-Ray 08/08/17 0600 Signed Impressions: Service Date/Time: Tuesday, August 08, 2017 04:32 - CONCLUSION: Significant consolidation throughout both lungs. Cardiomegaly and pleural effusions persist.. Joseph Toro MD Chest X-Ray [id number] Signed Impressions: Service Date/Time: Monday, August 07, 2017 03:10 - CONCLUSION: No significant change Sterling Aguilar MD Chest X-Ray [id number] Signed Impressions: Service Date/Time: Saturday, August 05, 2017 04:54 - CONCLUSION: Normal placement of nasogastric tube. Grossly stable aeration Sterling Aguilar MD Lumbar Spine CT 08/04/17 Signed Impressions: Service Date/Time: August 13:46 - CONCLUSION: 1. There is low density in the soft tissues at the recent laminectomy site L4-L5 measuring up to 2.4 cm in thickness with out deformity of the posterior thecal sac at the laminectomy site. 2. Stable anterolisthesis at L5-S1 with bony fusion. 3. 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 Maykel Singh MD Abdomen/Pelvis CT 08/04/17 Signed Impressions: Service Date/Time: August 13:46 - CONCLUSION: 1. There is stool diffusely throughout the colon suggesting constipation. 2. The solid organs of the abdomen are grossly intact. 3. No free air free fluid seen within the abdomen. No abscess is identified. 4. Small amount of free fluid within the abdomen. 5. Bilateral pleural effusions and consolidation. 6. Cardiomegaly. 7. 2 mm nonobstructing stone in the lower pole collecting system of the right kidney. 8. Anasarca. Mil Toro MD Abdomen Fluoroscopy 08/04/17 Signed Impressions: Service Date/Time: August 17:00 - CONCLUSION: Uncomplicated nasoenteric suction type catheter (NGT) placement as above. Librado Hernandez MD PHYSICAL EXAMINATION: GENERAL: Awake and alert. HEENT: The head is atraumatic. Extraocular movements appear intact. No icterus. Oropharynx intubated. Mucosa appears moist. NECK: No swelling or adenopathy. LUNGS: Rhonchi at the bases. HEART: Irregular S1 and S2. No audible murmurs, rubs or gallops. ABDOMEN: Slightly distended, soft, decreased bowel sounds. BACK: KAY drainage catheter exits the back and has scant jean-paul drainage. EXTREMITIES: No clubbing, cyanosis or edema. SKIN: No rash. NEUROLOGIC: Unable to fully assess. PSYCHIATRIC: Unable to fully assess. IMPRESSION: 1. Septic shock. Improved. 2. Acute hypercapnic respiratory failure. 3. Acute renal failure. 4. Shock liver, probably from sepsis. LFTs improving. 5. Lung infiltrate. 6. Osteomyelitis of the lumbar spine. Patient was placed on IV antibiotics By ID at [facility]. The patient is status post hardware removal from the lumbar spine and noted to have methicillin-resistant Staph aureus on culture. She received a course of IV vancomycin which was completed on 07/29/2017. Subsequently, she was started on daptomycin for chronic infection with plan to treat the patient for 6 weeks after discharge from [facility] on 08/02. Has drain in place at the lumbar spine. She was due to have an appointment at [facility] in [place] later this month to assess the lumbar wound and possibly remove the lumbar drainage catheter. 6. Candiduria. RECOMMENDATIONS: 1. Continue the Daptomycin at q 48 hour interval. 2. Continue Azactam. 3. Continue Diflucan. 4. Follow the white blood cell count. 5. Monitor clinical status. 6. Ventilator weaning to be determined by CCM. Dion Wing MD August 10, 2017 13:06
--- NOTE | 2017-08-10 14:02 | HHI.CCPN ---
Subjective Remarks/Hospital Course 76-year-old female resident of the [place] [facility] presents with complaints of respiratory difficulty. Onset was today. She is also complaining with some chest discomfort. She denies productive cough. Her symptoms are moderate to severe with no exacerbating factors. This patient was reportedly just discharged from [facility] with discitis secondary to MRSA. 53: Afebrile. Early this a.m. patient still having respiratory difficulty noted metabolic acidosis with a bicarb level 13, sodium bicarbonate infusion continues. She noticed to have respiratory distress ABGs performed. Impending intubation 7.10. Patient noted to have KAY drain emanating from back with dressing taken down no area redness yellow fluid and KAY drain sent for wound culture analysis. Upon further investigation patient's brother at bedside patient had lumbar hardware removed from [facility] in [place] approximately 6 weeks ago secondary to hardware eroding through the back and could be visualized on site. 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 Gottlieb cultures are pending. Attempts at medical record release forms from [facility] are pending. Patient previously last week at [facility] for acute kidney injury/urinary tract infection, attempting to obtain medical record. Patient was discharged approximately 2-3 days ago per report. This a.m. patient went into A. fib RVR with a heart rate in the 150s patient was given metoprolol 2 doses heart rate 112, patient is known to have chronic atrial fibrillation previously on Cardizem and digoxin 0.125 IV 1 dose Cardizem reinitiated. Discussion with patient regarding intubation and patient' s brother at bedside patient desires aggressive measures be undertaken patient requests intubation if needed and to remain a full code. Noted open areas skin wound areas on the lower extremities well-healed skin graft site left thigh wound care has been consulted. Palliative care also has been consulted to define goals of care. 08/05: Patient noted with elevated INR, Coumadin has been discontinued for 2 days. Vitamin K ordered. No active signs of bleeding. Patient on sedation vacation following commands. Afib rate controlled 70's-80's since addition to p.o. Cardizem. 6: Patient is currently on PSV trial FiO2 35%. Minimal secretions. Tolerating tube feeds. No bowel movement yesterday. Follows commands. Subjective: 08/08: Temperature currently 98.8. Adequate weaning parameters however no cough leak. We will give dexamethasone 1 day and recheck cuff leak in a.m. Awake and follows commands. Transaminases normalized. Creatinine continues to slowly rise. 08/09: No events overnight. Patient is lethargic, easily arousable, tolerating CPAP at 10/5. T-max of 99.9. Still no cuff leak. Urine output is appropriate , with 3650 mL's over the last 24 hours. No family present at bedside. 08/10: No events over the night. Patient is awake, complaining of back pain, on fentanyl at 150 mics/hr. Tolerating CPAP 15/5. Afebrile over the night, with a T-max of 98.8. Negative fluid balance over the last 24 hours, -500 cc. Objective Vital Signs Date Time Temp Pulse Resp B/P (MAP) Pulse Ox O2 Delivery O2 Flow Rate FiO2 08/10/17 12:00 91 08/10/17 12:00 98.4 18 157/74 (101) 97 08/10/17 12:00 35 Intake and Output 08/10/17 08/10/17 08/11/17 08:00 16:00 00:00 Intake Total 820 ml 100 ml Output Total 800 ml Balance 20 ml 100 ml Result Diagram: 08/10/17 0621 08/10/17 0621 Imaging Last Impressions Chest X-Ray 08/08/17 0600 Signed Impressions: Service Date/Time: Tuesday, August 08, 2017 04:32 - CONCLUSION: Significant consolidation throughout both lungs. Cardiomegaly and pleural effusions persist.. Joseph Toro MD Lumbar Spine CT 08/04/17 0000 Signed Impressions: Service Date/Time: August 13:46 - CONCLUSION: 1. There is low density in the soft tissues at the recent laminectomy site L4-L5 measuring up to 2.4 cm in thickness with out deformity of the posterior thecal sac at the laminectomy site. 2. Stable anterolisthesis at L5-S1 with bony fusion. 3. 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 Maykel Singh MD Abdomen/Pelvis CT 08/04/17 0000 Signed Impressions: Service Date/Time: August 13:46 - CONCLUSION: 1. There is stool diffusely throughout the colon suggesting constipation. 2. The solid organs of the abdomen are grossly intact. 3. No free air free fluid seen within the abdomen. No abscess is identified. 4. Small amount of free fluid within the abdomen. 5. Bilateral pleural effusions and consolidation. 6. Cardiomegaly. 7. 2 mm nonobstructing stone in the lower pole collecting system of the right kidney. 8. Anasarca. Mil Toro MD Abdomen Fluoroscopy 08/04/17 0000 Signed Impressions: Service Date/Time: August 17:00 - CONCLUSION: Uncomplicated nasoenteric suction type catheter (NGT) placement as above. Librado Hernandez MD Procedures 08/04 -placement of NG tube IR Objective Remarks GENERAL: Elderly lady, sedated, awake, in no distress. SKIN: Pale, no rashes appreciated. HEAD: Normocephalic. Atraumatic. EYES: Pupils equal and reactive. No scleral icterus. No injection or drainage. ENT: No nasal bleeding or discharge. MMM. NECK: Trachea midline. Full range of motion without pain. Neck veins not distended. Orally intubated. CARDIOVASCULAR: Irregular S1 and this, no murmurs appreciated. RESPIRATORY: Scattered coarse breath sounds bilateral, no wheezes. Decreased air entry at bases. GASTROINTESTINAL: Abdomen is soft, nontender, not distended. Bowel sounds are present. MUSCULOSKELETAL: KAY drain lower spine. 2-3+ edema over all extremities. NEUROLOGICAL: Intubated, awake, follows commands, moves all extremities but she remains very weak. Date of Insertion: August 04, 2017 A/P Problem List: (1) Afib ICD Code: I48.91 - Unspecified atrial fibrillation Status: Acute (2) EMIR (acute kidney injury) ICD Code: N17.9 - Acute kidney failure, unspecified Status: Acute (3) CKD (chronic kidney disease) stage 4, GFR 15-29 ml/min ICD Code: N18.4 - Chronic kidney disease, stage 4 (severe) Status: Acute (4) Renal insufficiency ICD Code: N28.9 - Disorder of kidney and ureter, unspecified Status: Acute (5) Chronic pain ICD Code: G89.29 - Other chronic pain Status: Acute (6) Atrial fibrillation with RVR ICD Code: I48.91 - Unspecified atrial fibrillation Status: Acute (7) Hyperkalemia ICD Code: E87.5 - Hyperkalemia Status: Acute (8) Severe sepsis ICD Code: A41.9 - Sepsis, unspecified organism; R65.20 - Severe sepsis without septic shock (9) Metabolic acidosis ICD Code: E87.2 - Acidosis Status: Acute (10) Hypoglycemia ICD Code: E16.2 - Hypoglycemia, unspecified Status: Acute (11) Cardiomegaly ICD Code: I51.7 - Cardiomegaly Status: Acute Assessment and Plan Neuro/Psych: Chronic pain syndrome Status post removal of lumbar/sacral L5/S1 hardware 06/19 Chronic opioid use Patient is currently on a fentanyl drip at 150 mcg there are for sedation/ analgesia while intubated Goal of RASS -1 Neuro checks per ICU protocol Daily sedation vacation Acetaminophen 650 mg every 6 hours as needed for temperature greater than 101.5 Cyclobenzaprine 10 mg 3 times daily as needed muscle relaxant Morphine sulfate 15 mg every 4 hours as needed pain currently being held Respiratory: Acute hypercapnic respiratory failure Mild pulmonary hypertension COPD/asthma Continue CPAP trial but decrease support to 10/5, FiO2 at 0.35. Check for air leak, if present we will attempt extubation Ventilator bundle Ipratropium aerosols every 6 hours Albuterol allergy When clinically indicated resume nasal fluticasone home medication Continue dexamethasone 4 mg IV every 6 hours Cardiovascular: A. fib RVR-resolved History of essential hypertension Chronic systolic congestive heart failure Chronic atrial fibrillation Cardizem 60 mg every 8 hours, since home medicines include Cardizem CD 08/05 Echo- The left ventricular systolic function is moderately reduced with an estimated ejection fraction in the range of 40-45%. Dyskinetic apical cap wall motion. The right ventricle is moderately dilated. Moderate mitral valve regurgitation. Aortic valve sclerosis is present. There is mild to moderate tricuspid valve regurgitation. There is estimated mild pulmonary hypertension present (range 40-50 mmHg). BNP [phone] Home medications include isosorbide dinitrate 30 mg daily, metoprolol succinate 50 mg daily lisinopril 2.5 mg daily. These are currently on hold Patient normally on Coumadin therapy INR initial noted to be 6.1- with elevation to 11.0 on 08/05 Vit K administered Renal: Acute renal insufficiency incentive chronic kidney disease stage IV Right renal stone/no hydronephrosis Maintain Simpson -- Strict I/Os Creatinine currently 2.93. FEN/GI: Continue tube feeds 08/05 -difficult NG tube placement, placed by IR Famotidine 10 mg twice daily for GI prophylaxis. Docusate sodium/senna 1 tablet twice daily, lactulose 30 cc twice daily for bowel regimen Heme/ID: Anemia of chronic disease Thrombocytopenia Leukocytosis MRSA Discitis Chronic warfarin use Funguria Continue Atrezonam, daptomycin, fluconazole. Infectious disease consult following Follow-up blood and urine cultures Medical records release obtained for medical records at [facility]/[place] and [facility] - The patient has a history of recent surgery at [facility] in [place]. She underwent removal of hardware from the lumbosacral spine L1-S1 because of exposed loosened hardware from prior surgery. She reportedly had surgery of the lumbosacral spine 10 years prior. The surgery at [facility] was on 06/27. Intraoperative culture reportedly had MRSA. She was put on antibiotics by infectious disease to complete on 07/29/2017. She was receiving intravenous vancomycin. The patient completed the course of the vancomycin. There is a notation in the medical record that she is ALLERGIC TO VANCOMYCIN. She is currently on daptomycin. She continues with a drainage catheter in the lumbosacral region from prior surgery. She was seen by infectious disease physician at [facility] and reportedly will be in need of IV antibiotics for 6 weeks because of osteomyelitis of the lumbar spine. 08/06 UTI -Denise-fluconazole 200mg/d 08/04- Blood Cultures -NGTD Endocrine: Hypoglycemia-resolved Glucose monitoring per ICU protocol -- SSI Prophylaxis: GI Prophylaxis Famotidine BID DVT Prophylaxis -- SCDs Heparin continues to be on hold. Patient normally on warfarin therapy for A. fib. INR supratherapeutic yesterday. We will recheck in a.m. Lines: PICC line Level 2 follow-up Marcos Ley MD August 10, 2017 14:02
[2017-08-10] MEDS: FLUCONAZOLE 200 MG PREMIX BAG 100 ML IV SCH (14:32)
[2017-08-10 14:45] LABS: INTERNATIONAL NORMALIZED RATIO 3.1 RATIO; PROTHROMBIN TIME - PATIENT 31.4 SEC (9.8-11.6)
[2017-08-10] MEDS ORDERED: FUROSEMIDE 40 MG/4 ML VIAL IV PUSH ONE (16:00)
[2017-08-10] MEDS ORDERED: ALBUMIN 25% INJ 100 ML IV ONE (16:00)
[2017-08-11] VITALS (17 sets, daily range): BP systolic 143–159; BP diastolic 74–89; PULSE 55–100; RESP 16–24; TEMP 98–99.3; O2SAT 93–99
[2017-08-11] MEDS: RESP: IPRATROPIUM 0.5 MG/2.5 ML NEB NEB SCH ×4 (02:48→20:55)
[2017-08-11] MEDS: CHLORHEXIDINE GLUCONATE 2 % 1 PACK (2 CLOTHS) TOP SCH (03:20)
--- NOTE | 2017-08-11 05:03 | RADRPT ---
EXAM DATE/TIME: 08/11/2017 03:16 [place] COMPARISON: CHEST SINGLE AP, August 09, 2017, 11:34. INDICATIONS : Shortness of breath, followup bilateral airspace disease.. MEDICAL HISTORY : Cardiovascular disease. Gastroesophageal reflux disease. SURGICAL HISTORY : Appendectomy. Hysterectomy. ENCOUNTER: Subsequent ACUITY: 1 week PAIN SCORE: Non-responsive. LOCATION: Bilateral chest FINDINGS: A single AP erect view of the chest was obtained and demonstrates the endotracheal tube remaining in place with the tip located approximately 2 cm above the paulo. A nasogastric tube is again seen cour sing through the esophagus into the stomach. There is been a mild interval improvement in the bilater al airspace disease with significant residual. The heart size is mildly enlarged. Multiple overlying electrocardiogram leads are again noted. CONCLUSION: Mild interval improvement in bilateral airspace disease with significant residual. Epifanio Sweeney MD on August 11, 2017 at 5:00 Board Certified Radiologist. This report was verified electronically.
[2017-08-11 05:54] LABS: AUTOMATED NEUTROPHIL # 9.6 TH/MM3 (1.8-7.7); BASOPHIL % 0.1 % (0.0-2.0); HEMATOCRIT 27.7 % (35.0-46.0); HEMOGLOBIN 9.1 GM/DL (11.6-15.3); LYMPH % 1.6 % (9.0-44.0); LYMPHOCYTE # 0.2 TH/MM3 (1.0-4.8); MEAN CELL VOLUME 97.4 FL (80.0-100.0); MEAN CORPUSCULAR HGB CONC 32.8 % (32.0-36.0); MEAN PLATELET VOLUME 8.5 FL (7.0-11.0); MONO % 4.7 % (0.0-8.0); MONOCYTE # 0.5 TH/MM3 (0-0.9); NEUT % 93.6 % (16.0-70.0); PLATELET COUNT 183 TH/MM3 (150-450); RED BLOOD COUNT 2.84 MIL/MM3 (4.00-5.30); WHITE BLOOD COUNT 10.2 TH/MM3 (4.0-11.0)
[2017-08-11] MEDS: DILTIAZEM HCL 60 MG TAB PO SCH ×3 (05:56→19:38)
[2017-08-11] MEDS: AZTREONAM INJ 1,000 MG in SODIUM CHLORIDE 0.9% INJ 100 ML IV SCH ×2 (05:56→16:59)
[2017-08-11] MEDS: SODIUM CHLORIDE 0.9% FLUSH 10 ML FLUSH IV FLUSH SCH ×5 (05:57→19:38)
[2017-08-11] MEDS: ARTIFICIAL TEARS OPTH SOLN 15 ML BTL EACH EYE SCH ×3 (05:57→19:38)
[2017-08-11 06:06] LABS: INTERNATIONAL NORMALIZED RATIO 2.6 RATIO; PROTHROMBIN TIME - PATIENT 26.1 SEC (9.8-11.6)
[2017-08-11 06:16] LABS: ALBUMIN 2.1 GM/DL (3.4-5.0); AST (GOT) 40 U/L (15-37); BICARBONATE 25.9 MEQ/L (21.0-32.0); BLOOD UREA NITROGEN 70 MG/DL (7-18); CALCIUM 7.6 MG/DL (8.5-10.1); CHLORIDE 104 MEQ/L (98-107); CREATININE 2.32 MG/DL (0.50-1.00); GLOMERULAR FILTRATION RATE 20 ML/MIN (>89); GLUCOSE,RANDOM 142 MG/DL (74-106); SODIUM (NA) 141 MEQ/L (136-145)
[2017-08-11 06:20] LABS: ALKALINE PHOSPHATASE 145 U/L (45-117); ALT (GPT) 236 U/L (10-53); TOTAL BILIRUBIN ADULT 0.7 MG/DL (0.2-1.0); TOTAL PROTEIN 7.2 GM/DL (6.4-8.2)
[2017-08-11] MEDS ORDERED: CALCIUM GLUCONATE INJ 1 GM in DEXTROSE 5% IN WATER 100ML INJ 100 ML IV ONE ×2 (08:00)
--- NOTE | 2017-08-11 08:01 | HHI.CCPN ---
Subjective Remarks/Hospital Course 76-year-old female resident of the residential presents with complaints of respiratory difficulty. Onset was today. She is also complaining with some chest discomfort. She denies productive cough. Her symptoms are moderate to severe with no exacerbating factors. This patient was reportedly just discharged from [facility] with discitis secondary to MRSA. 53: Afebrile. Early this a.m. patient still having respiratory difficulty noted metabolic acidosis with a bicarb level 13, sodium bicarbonate infusion continues. She noticed to have respiratory distress ABGs performed. Impending intubation 7.10. Patient noted to have KAY drain emanating from back with dressing taken down no area redness yellow fluid and KAY drain sent for wound culture analysis. Upon further investigation patient's brother at bedside patient had lumbar hardware removed from [facility] in [place] approximately 6 weeks ago secondary to hardware eroding through the back and could be visualized on site. 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 Gottlieb cultures are pending. Attempts at medical record release forms from [facility] are pending. Patient previously last week at [facility] for acute kidney injury/urinary tract infection, attempting to obtain medical record. Patient was discharged approximately 2-3 days ago per report. This a.m. patient went into A. fib RVR with a heart rate in the 150s patient was given metoprolol 2 doses heart rate 112, patient is known to have chronic atrial fibrillation previously on Cardizem and digoxin 0.125 IV 1 dose Cardizem reinitiated. Discussion with patient regarding intubation and patient' s brother at bedside patient desires aggressive measures be undertaken patient requests intubation if needed and to remain a full code. Noted open areas skin wound areas on the lower extremities well-healed skin graft site left thigh wound care has been consulted. Palliative care also has been consulted to define goals of care. 08/05: Patient noted with elevated INR, Coumadin has been discontinued for 2 days. Vitamin K ordered. No active signs of bleeding. Patient on sedation vacation following commands. Afib rate controlled 70's-80's since addition to p.o. Cardizem. 6: Patient is currently on PSV trial FiO2 35%. Minimal secretions. Tolerating tube feeds. No bowel movement yesterday. Follows commands. 08/08: Temperature currently 98.8. Adequate weaning parameters however no cough leak. We will give dexamethasone 1 day and recheck cuff leak in a.m. Awake and follows commands. Transaminases normalized. Creatinine continues to slowly rise. 08/09: No events overnight. Patient is lethargic, easily arousable, tolerating CPAP at 10/5. T-max of 99.9. Still no cuff leak. Urine output is appropriate , with 3650 mL's over the last 24 hours. No family present at bedside. 08/10: No events over the night. Patient is awake, complaining of back pain, on fentanyl at 150 mics/hr. Tolerating CPAP 15/5. Afebrile over the night, with a T-max of 98.8. Negative fluid balance over the last 24 hours, -500 cc. 08/11: Patient remains intubated and sedated. She did well over the night. T- max of 98.6. She continues to be on fentanyl drip for back pain, asleep, easily arousable, follows commands. Objective Vital Signs Date Time Temp Pulse Resp B/P (MAP) Pulse Ox O2 Delivery O2 Flow Rate FiO2 08/11/17 04:05 96 35 08/11/17 04:00 98.0 93 16 147/85 (105) Intake and Output 08/11/17 08/11/17 08/12/17 08:00 16:00 00:00 Intake Total 601 ml Output Total 1600 ml Balance -999 ml Result Diagram: 08/11/17 0509 08/11/17 0509 Imaging Last 24 hours Impressions Chest X-Ray 08/11/17 0600 Signed Impressions: Service Date/Time: August 03:16 - CONCLUSION: Mild interval improvement in bilateral airspace disease with significant residual. Epifanio Sweeney MD Last Impressions Chest X-Ray 08/08/17 06 Signed Impressions: Service Date/Time: Tuesday, August 08, 2017 04:32 - CONCLUSION: Significant consolidation throughout both lungs. Cardiomegaly and pleural effusions persist.. Joseph Toro MD Lumbar Spine CT 08/04/17 0000 Signed Impressions: Service Date/Time: August 13:46 - CONCLUSION: 1. There is low density in the soft tissues at the recent laminectomy site L4-L5 measuring up to 2.4 cm in thickness with out deformity of the posterior thecal sac at the laminectomy site. 2. Stable anterolisthesis at L5-S1 with bony fusion. 3. 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 Maykel Singh MD Abdomen/Pelvis CT 08/04/17 Signed Impressions: Service Date/Time: August 13:46 - CONCLUSION: 1. There is stool diffusely throughout the colon suggesting constipation. 2. The solid organs of the abdomen are grossly intact. 3. No free air free fluid seen within the abdomen. No abscess is identified. 4. Small amount of free fluid within the abdomen. 5. Bilateral pleural effusions and consolidation. 6. Cardiomegaly. 7. 2 mm nonobstructing stone in the lower pole collecting system of the right kidney. 8. Anasarca. Mil Toro MD Abdomen Fluoroscopy 08/04/17 Signed Impressions: Service Date/Time: August 17:00 - CONCLUSION: Uncomplicated nasoenteric suction type catheter (NGT) placement as above. Librado Hernandez MD Procedures 08/04 -placement of NG tube IR Objective Remarks General - elderly lady, intubated and sedated, ill-appearing HEENT - pupils equal, reactive, sclerae anicteric, + kyphosis, unable to appreciate neck vein distention, orally intubated CV - regular S1, S2, no murmurs Chest - coarse breath sounds b/l, decreased air entry at bases, no wheezes Abdomen - soft, non-tender, non-distended, BS present Skin - no rashes, no cyanosis Extremities - warm and well perfused, 2-3+ edema over both upper and lower extremities, + peripheral pulses, no clubbing Neuro - intubated and sedated, easily arousable, follows commands, moves all extremities but she remains weak Date of Insertion: August 04, 2017 A/P Problem List: (1) Afib ICD Code: I48.91 - Unspecified atrial fibrillation Status: Acute (2) EMIR (acute kidney injury) ICD Code: N17.9 - Acute kidney failure, unspecified Status: Acute (3) CKD (chronic kidney disease) stage 4, GFR 15-29 ml/min ICD Code: N18.4 - Chronic kidney disease, stage 4 (severe) Status: Acute (4) Renal insufficiency ICD Code: N28.9 - Disorder of kidney and ureter, unspecified Status: Acute (5) Chronic pain ICD Code: G89.29 - Other chronic pain Status: Acute (6) Atrial fibrillation with RVR ICD Code: I48.91 - Unspecified atrial fibrillation Status: Acute (7) Hyperkalemia ICD Code: E87.5 - Hyperkalemia Status: Acute (8) Severe sepsis ICD Code: A41.9 - Sepsis, unspecified organism; R65.20 - Severe sepsis without septic shock (9) Metabolic acidosis ICD Code: E87.2 - Acidosis Status: Acute (10) Hypoglycemia ICD Code: E16.2 - Hypoglycemia, unspecified Status: Acute (11) Cardiomegaly ICD Code: I51.7 - Cardiomegaly Status: Acute Assessment and Plan Neuro/Psych: Chronic pain syndrome Status post removal of lumbar/sacral L5/S1 hardware 06/19 Chronic opioid use Patient is currently on a fentanyl drip at 250 mcg there are for sedation/ analgesia while intubated Goal of RASS -1 Neuro checks per ICU protocol Daily sedation vacation Acetaminophen 650 mg every 6 hours as needed for temperature greater than 101.5 Cyclobenzaprine 10 mg 3 times daily as needed muscle relaxant Morphine sulfate 15 mg every 4 hours as needed pain currently being held Respiratory: Acute hypercapnic respiratory failure -improving Mild pulmonary hypertension COPD/asthma Currently on PRVC, PIP less than 30, patient synchronized with event, no auto PEEP We will attempt CPAP trial again today Positive air leak this morning Ventilator bundle Ipratropium aerosols every 6 hours Albuterol allergy When clinically indicated resume nasal fluticasone home medication Stop steroids Cardiovascular: A. fib RVR-resolved History of essential hypertension Chronic systolic congestive heart failure Chronic atrial fibrillation Cardizem 60 mg every 8 hours, since home medicines include Cardizem CD 08/05 Echo- The left ventricular systolic function is moderately reduced with an estimated ejection fraction in the range of 40-45%. Dyskinetic apical cap wall motion. The right ventricle is moderately dilated. Moderate mitral valve regurgitation. Aortic valve sclerosis is present. There is mild to moderate tricuspid valve regurgitation. There is estimated mild pulmonary hypertension present (range 40-50 mmHg). BNP 4339->800 Gradually restart home medication as below Home medications include isosorbide dinitrate 30 mg daily, metoprolol succinate 50 mg daily lisinopril 2.5 mg daily. These are currently on hold On Coumadin per pharmacy Replete calcium and potassium and start Lasix Renal: Acute renal insufficiency incentive chronic kidney disease stage IV Right renal stone/no hydronephrosis Maintain Simpson -- Strict I/Os Creatinine currently 2.93. FEN/GI: Continue tube feeds / -difficult NG tube placement, placed by IR Famotidine 10 mg twice daily for GI prophylaxis. Docusate sodium/senna 1 tablet twice daily, lactulose 30 cc twice daily for bowel regimen Heme/ID: Anemia of chronic disease Thrombocytopenia Leukocytosis MRSA Discitis Chronic warfarin use Funguria Continue Atrezonam, daptomycin, fluconazole. Infectious disease consult following Follow-up blood and urine cultures INR 2.6 today Coumadin per pharmacy Medical records release obtained for medical records at [facility]/[place] and [facility] - The patient has a history of recent surgery at [facility] in [place]. She underwent removal of hardware from the lumbosacral spine L1-S1 because of exposed loosened hardware from prior surgery. She reportedly had surgery of the lumbosacral spine 10 years prior. The surgery at [facility] was on 06/27. Intraoperative culture reportedly had MRSA. She was put on antibiotics by infectious disease to complete on 07/29/2017. She was receiving intravenous vancomycin. The patient completed the course of the vancomycin. There is a notation in the medical record that she is ALLERGIC TO VANCOMYCIN. She is currently on daptomycin. She continues with a drainage catheter in the lumbosacral region from prior surgery. She was seen by infectious disease physician at [facility] and reportedly will be in need of IV antibiotics for 6 weeks because of osteomyelitis of the lumbar spine. 5/ UTI -Denise-fluconazole 200mg/d 08/04- Blood Cultures -NGTD Endocrine: Hypoglycemia-resolved Glucose monitoring per ICU protocol -- SSI Prophylaxis: GI Prophylaxis Famotidine BID DVT Prophylaxis -- SCDs -- INR therapeutic Lines: PICC line Level 2 follow-up No family present at bedside. Marcos Ley MD August 11, 2017 08:01
[2017-08-11] MEDS: POTASSIUM CHLOR 20 MEQ PREMIX 100 ML IV SCH ×2 (08:53→11:29)
[2017-08-11] MEDS: CHLORHEXIDINE 0.12% (ORAL KIT) 15 ML CUP MT SCH ×2 (08:53→19:38)
[2017-08-11] MEDS: ZINC SULFATE 220 MG CAP PO SCH (08:53)
[2017-08-11] MEDS: FAMOTIDINE 20 MG TAB PO SCH ×2 (08:54→19:38)
[2017-08-11] MEDS: DOCUSATE SODIUM 50 MG/SENNA 8.6 MG TAB PO SCH ×2 (08:55→19:38)
[2017-08-11] MEDS: LACTULOSE SYRUP 20 GM/30 ML CUP PO SCH ×2 (08:55→19:37)
[2017-08-11] MEDS: ASCORBIC ACID 500 MG TAB PO SCH (08:55)
[2017-08-11] MEDS: MUPIROCIN 2% OINT 1 APPLIC/GM SYR EACH NARE SCH ×2 (09:00→19:38)
[2017-08-11] MEDS: fentaNYL DRIP 250 ML IV PRN ×2 (09:22→23:15)
--- NOTE | 2017-08-11 11:32 | HHI.HCPN ---
Reason for visit a. To assist with evaluation and management of symptoms including: dyspnea, pain b. To assist medical decision maker(s) with: better understanding of current medical conditions; weighing benefits/burdens of medical treatment options; making medical treatment decisions. (Angelica Barajas) Subjective/Interval History Patient seen today to follow-up on dyspnea, comfort. Stable continues CPAP trials today, planned for medical extubation per nursing report. CXR=Mild interval improvement in bilateral airspace disease with significant residual. WBC downtrending 10. Continued on daptomycin, Azactam, fluconazole per ID. BUN and creatinine remain elevated 70/2.32. Tolerating tube feed. Patient seen in room, she is alert, nodding and gesturing. Review today's plan, conditions, hospitalization. She nods, seems to understand. She indicates she is still having pain. Explore she is receiving fentanyl IV, and probably will not be able to significantly uptitrate pending planned medical extubation, but that can re-evaluate post extubation, may be able to resume her home PO regimen. Will d/w critical care. Update that her brother Jose has been checking on her daily. she nods/smiles to this. Review that upon extubation would need to address reintubation status, and if she would/would not want tube back in if she experienced resp decline. Via nodding she indicates she would want tube in again if needed. Will need to review further upon extubation. Following exam call to brothvíctor Garcia , provided update on current condition, recent diagnostics, plan for medical extubation . Advise that would need ongoing reevaluation of reintubation status with treatment changes and that so far pt seems to indicate she would want reintubation. All questions answered. Discussed with primary nurse. D/w critical care pt wishes RE reintubation, and hx chronic pain/regimen. Will reassess pain needs post extubation. . (Angelica Barajas) Advance Directives Living Will: Never completed Health Care Surrogate: Never completed Durable Power of Drywall Carrier: Never completed (Angelica Barajas) Objective Vital Signs Date Time Temp Pulse Resp B/P (MAP) Pulse Ox O2 Delivery O2 Flow Rate FiO2 08/11/17 10:00 100 08/11/17 08:00 95 08/11/17 08:00 35 08/11/17 08:00 99.3 95 24 151/81 (104) 97 08/11/17 07:59 96 35 08/11/17 04:05 96 35 08/11/17 04:00 98.0 93 16 147/85 (105) 96 08/11/17 04:00 35 08/11/17 00:00 98.3 92 16 148/84 (105) 95 08/11/17 00:00 35 08/10/17 23:55 98 35 08/10/17 20:00 98.5 88 19 152/73 (99) 98 08/10/17 20:00 35 08/10/17 19:54 97 35 08/10/17 18:00 79 08/10/17 17:22 35 08/10/17 16:00 98.6 81 21 140/67 (91) 97 08/10/17 16:00 81 08/10/17 16:00 35 08/10/17 15:35 96 35 08/10/17 14:00 89 08/10/17 12:00 91 08/10/17 12:00 98.4 91 18 157/74 (101) 97 08/10/17 12:00 35 08/10/17 11:22 97 35 Intake & Output 08/11/17 08/11/17 07:00 19:00 Intake Total 751 ml 100 ml Output Total 1600 ml Balance -849 ml 100 ml IV Total 250 ml 100 ml Tube Feeding 381 ml Other 120 ml Output Urine Total 1600 ml Drainage Total 0 ml # Bowel Movements 0 Physical Exam CONSTITUTIONAL/GENERAL: This is an adequately nourished patient, alert and nodding on mechanical vent TUBES/LINES/DRAINS: Midline iv left upper tremor. ET tube. NG tube. Soft restraints bilateral upper extremities. SKIN: No jaundice, rashes, or lesions. Very pale. Areas of redness and ecchymosis scattered to bilateral upper arms. Skin very thin, edema to bilateral upper extremities. Multiple healed graft scars noted to upper legs, several scars, clean dry dressings to bilateral lower legs. Skin warm/dry. CARDIOVASCULAR: Irregular rate and rhythm. Atrial fib observed. No JVD. Peripheral pulses symmetric-pedal pulses very faint. + 2+ edema bilateral upper extremities. RESPIRATORY/CHEST: Symmetric, unlabored respirations via mechanical vent. Clear to auscultation. Decreased air movement. GASTROINTESTINAL: Abdomen soft, no apparent tenderness though limited assessment , nondistended. No hepato-splenomegaly, or palpable masses. No guarding. Bowel sounds hypoactive. Tube feed infusing via OG tube. GENITOURINARY: Without palpable bladder distension. Catheter in place clear yellow urine. MUSCULOSKELETAL: Extremities without clubbing, cyanosis, or edema. Healed graft scars to upper legs. Dressings to lower legs. Lower legs are very thin, with significant muscle atrophy. Arthritic appearing deformity to feet. Kyphotic posture, leaning forward in bed. NEUROLOGICAL: Alert nods to yes/no questions. Able to gesture some weakly with hands. Appears oriented to person, place and family- via nodding yes/no. Limited further assessment due to communication barriers. Cooperative, moving all 4 extremities very weakly. PSYCHIATRIC: No obvious anxiety/depression--limited assessment secondary to clinical condition. . (Angelica Barajas) Diagnostic Tests Laboratory Laboratory Tests Test 08/09/17 06:42 08/09/17 12:13 08/10/17 06:21 08/10/17 12:53 Prothrombin Time 36.3 SEC (9.8-11.6) 31.4 SEC (9.8-11.6) Prothromb Time International Ratio 3.6 RATIO 3.1 RATIO White Blood Count 15.7 TH/MM3 (4.0-11.0) 11.8 TH/MM3 (4.0-11.0) Red Blood Count 3.55 MIL/MM3 (4.00-5.30) 2.86 MIL/MM3 (4.00-5.30) Hemoglobin 11.5 GM/DL (11.6-15.3) 9.2 GM/DL (11.6-15.3) Hematocrit 34.9 % (35.0-46.0) 27.8 % (35.0-46.0) Mean Corpuscular Volume 98.1 FL (80.0-100.0) 97.0 FL (80.0-100.0) Mean Corpuscular Hemoglobin 32.3 PG (27.0-34.0) 32.3 PG (27.0-34.0) Mean Corpuscular Hemoglobin Concent 32.9 % (32.0-36.0) 33.3 % (32.0-36.0) Red Cell Distribution Width 18.0 % (11.6-17.2) 18.1 % (11.6-17.2) Platelet Count 164 TH/MM3 (150-450) 169 TH/MM3 (150-450) Mean Platelet Volume 8.8 FL (7.0-11.0) 8.6 FL (7.0-11.0) Neutrophils (%) (Auto) 95.6 % (16.0-70.0) 95.4 % (16.0-70.0) Lymphocytes (%) (Auto) 2.2 % (9.0-44.0) 1.4 % (9.0-44.0) Monocytes (%) (Auto) 2.1 % (0.0-8.0) 3.1 % (0.0-8.0) Eosinophils (%) (Auto) 0.0 % (0.0-4.0) 0.0 % (0.0-4.0) Basophils (%) (Auto) 0.1 % (0.0-2.0) 0.1 % (0.0-2.0) Neutrophils # (Auto) 15.0 TH/MM3 (1.8-7.7) 11.2 TH/MM3 (1.8-7.7) Lymphocytes # (Auto) 0.3 TH/MM3 (1.0-4.8) 0.2 TH/MM3 (1.0-4.8) Monocytes # (Auto) 0.3 TH/MM3 (0-0.9) 0.4 TH/MM3 (0-0.9) Eosinophils # (Auto) 0.0 TH/MM3 (0-0.4) 0.0 TH/MM3 (0-0.4) Basophils # (Auto) 0.0 TH/MM3 (0-0.2) 0.0 TH/MM3 (0-0.2) CBC Comment AUTO DIFF DIFF FINAL Differential Comment AUTO DIFF CONFIRMED Blood Urea Nitrogen 61 MG/DL (7-18) 65 MG/DL (7-18) Creatinine 2.78 MG/DL (0.50-1.00) 2.54 MG/DL (0.50-1.00) Random Glucose 144 MG/DL (74-106) 142 MG/DL (74-106) Total Protein 9.5 GM/DL (6.4-8.2) 6.8 GM/DL (6.4-8.2) Albumin 1.9 GM/DL (3.4-5.0) 1.6 GM/DL (3.4-5.0) Calcium Level 8.1 MG/DL (8.5-10.1) 7.4 MG/DL (8.5-10.1) Alkaline Phosphatase 204 U/L (45-117) 142 U/L (45-117) Aspartate Amino Transf (AST/SGOT) 88 U/L (15-37) 51 U/L (15-37) Alanine Aminotransferase (ALT/SGPT) 445 U/L (10-53) 322 U/L (10-53) Total Bilirubin 0.7 MG/DL (0.2-1.0) 0.5 MG/DL (0.2-1.0) Sodium Level 139 MEQ/L (136-145) 140 MEQ/L (136-145) Potassium Level 3.7 MEQ/L (3.5-5.1) 3.7 MEQ/L (3.5-5.1) Chloride Level 102 MEQ/L (98-107) 104 MEQ/L (98-107) Carbon Dioxide Level 23.8 MEQ/L (21.0-32.0) 26.3 MEQ/L (21.0-32.0) Anion Gap 13 MEQ/L (5-15) 10 MEQ/L (5-15) Estimat Glomerular Filtration Rate 17 ML/MIN (>89) 18 ML/MIN (>89) Phosphorus Level 4.5 MG/DL (2.5-4.9) Magnesium Level 1.9 MG/DL (1.5-2.5) Protein Corrected Calcium 7.6 MG/DL (8.5-10.1) Test 08/11/17 05:09 White Blood Count 10.2 TH/MM3 (4.0-11.0) Red Blood Count 2.84 MIL/MM3 (4.00-5.30) Hemoglobin 9.1 GM/DL (11.6-15.3) Hematocrit 27.7 % (35.0-46.0) Mean Corpuscular Volume 97.4 FL (80.0-100.0) Mean Corpuscular Hemoglobin 32.0 PG (27.0-34.0) Mean Corpuscular Hemoglobin Concent 32.8 % (32.0-36.0) Red Cell Distribution Width 18.0 % (11.6-17.2) Platelet Count 183 TH/MM3 (150-450) Mean Platelet Volume 8.5 FL (7.0-11.0) Neutrophils (%) (Auto) 93.6 % (16.0-70.0) Lymphocytes (%) (Auto) 1.6 % (9.0-44.0) Monocytes (%) (Auto) 4.7 % (0.0-8.0) Eosinophils (%) (Auto) 0.0 % (0.0-4.0) Basophils (%) (Auto) 0.1 % (0.0-2.0) Neutrophils # (Auto) 9.6 TH/MM3 (1.8-7.7) Lymphocytes # (Auto) 0.2 TH/MM3 (1.0-4.8) Monocytes # (Auto) 0.5 TH/MM3 (0-0.9) Eosinophils # (Auto) 0.0 TH/MM3 (0-0.4) Basophils # (Auto) 0.0 TH/MM3 (0-0.2) CBC Comment DIFF FINAL Differential Comment Prothrombin Time 26.1 SEC (9.8-11.6) Prothromb Time International Ratio 2.6 RATIO Blood Urea Nitrogen 70 MG/DL (7-18) Creatinine 2.32 MG/DL (0.50-1.00) Random Glucose 142 MG/DL (74-106) Total Protein 7.2 GM/DL (6.4-8.2) Albumin 2.1 GM/DL (3.4-5.0) Calcium Level 7.6 MG/DL (8.5-10.1) Phosphorus Level 4.0 MG/DL (2.5-4.9) Magnesium Level 2.0 MG/DL (1.5-2.5) Alkaline Phosphatase 145 U/L (45-117) Aspartate Amino Transf (AST/SGOT) 40 U/L (15-37) Alanine Aminotransferase (ALT/SGPT) 236 U/L (10-53) Total Bilirubin 0.7 MG/DL (0.2-1.0) Sodium Level 141 MEQ/L (136-145) Potassium Level 3.4 MEQ/L (3.5-5.1) Chloride Level 104 MEQ/L (98-107) Carbon Dioxide Level 25.9 MEQ/L (21.0-32.0) Anion Gap 11 MEQ/L (5-15) Estimat Glomerular Filtration Rate 20 ML/MIN (>89) (Angelica Barajas) Result Diagram: 08/11/17 0509 08/11/17 0509 Imaging Last Impressions Chest X-Ray 08/11/17 0600 Signed Impressions: Service Date/Time: August 03:16 - CONCLUSION: Mild interval improvement in bilateral airspace disease with significant residual. Epifanio Sweeney MD Lumbar Spine CT 08/04/17 0000 Signed Impressions: Service Date/Time: August 13:46 - CONCLUSION: 1. There is low density in the soft tissues at the recent laminectomy site L4-L5 measuring up to 2.4 cm in thickness with out deformity of the posterior thecal sac at the laminectomy site. 2. Stable anterolisthesis at L5-S1 with bony fusion. 3. 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 Maykel Singh MD Abdomen/Pelvis CT 08/04/17 0000 Signed Impressions: Service Date/Time: August 13:46 - CONCLUSION: 1. There is stool diffusely throughout the colon suggesting constipation. 2. The solid organs of the abdomen are grossly intact. 3. No free air free fluid seen within the abdomen. No abscess is identified. 4. Small amount of free fluid within the abdomen. 5. Bilateral pleural effusions and consolidation. 6. Cardiomegaly. 7. 2 mm nonobstructing stone in the lower pole collecting system of the right kidney. 8. Anasarca. Mil Toro MD Abdomen Fluoroscopy 08/04/17 0000 Signed Impressions: Service Date/Time: August 17:00 - CONCLUSION: Uncomplicated nasoenteric suction type catheter (NGT) placement as above. Librado Hernandez MD Procedures 08/03/17 central line placed 08/04/17 intubated (Angelica Barajas) Assessment and Plan Disease Oriented Problem List: (1) Acute respiratory failure (2) CAD (coronary artery disease) (3) GERD (gastroesophageal reflux disease) (4) Anemia (5) Chest pain (6) Elevated troponin (7) Urinary tract infection (8) Sepsis (9) MRSA (methicillin resistant Staphylococcus aureus) septicemia (10) Atrial fibrillation with RVR (11) Hyperkalemia (12) Cardiomegaly (13) Hypoglycemia (14) Renal insufficiency (15) Metabolic acidosis (16) CKD (chronic kidney disease) stage 4, GFR 15-29 ml/min Symptom Scale: (1) Dyspnea 0-10 Scale: Unable to quantify (2) Pain 0-10 Scale: Unable to quantify Pertinent Non-Medical Issues 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 Not no children. Part of a very large family she has multiple siblings. She is closest with her brother Jose, who is local. Jose describes her as jessee and extremely kind and caring. Spiritual: [employer], a [employer] Legal: Patient currently on mechanical vent, sedation unable to participate in decision-making. She may at some point regain ability to participate. Brother Jose indicates she has always listed him as primary contact, and has always indicated that she trusts him to make decisions when she cannot however he is not certain that she has completed any documentation of healthcare surrogate or advanced directives. Per [place] statutes legal decision making would fall to the majority of all of patient's siblings. Brother indicates that he has always been the one assisting her with medical needs, decisions. Will discuss with him further tomorrow and attempt to contact additional siblings to determine if they wish to participate in decision-making. 08/05/17 4 of 5 siblings defer to brother Jose. Ethical issues impacting care: None identified Important Contacts Brother Mark Nicolas (Bill) [phone] Sister Karrie defers to brother Jose Sister Malu defers to brother Jose Brother Sterling defers to brother Jose brother Gm defers to Jose Sister Itzel-- 08/08 defers to Jose . Prognosis This patient was admitted for respiratory distress, chest discomfort. She has had multiple recent hospitalizations and rehabilitation courses. Brother details that each time one condition stabilizes or improves she experiences another complication. She has required ongoing treatment for MRSA infection at a surgical site. Given her advanced age and multiple condition she does remain at risk for continued complications and decline and possibly . Code Status: Full Code Plan * Legal decision maker: Patient currently on mechanical vent, sedation unable to participate in decision-making. She may at some point regain ability to participate. Brother Jose indicates she has always listed him as primary contact, and has always indicated that she trusts him to make decisions when she cannot however he is not certain that she has completed any documentation of healthcare surrogate or advanced directives. Per [place] statutes legal decision making would fall to the majority of all of patient's siblings. Brother indicates that he has always been the one assisting her with medical needs, decisions. Will discuss with him further tomorrow and attempt to contact additional siblings to determine if they wish to participate in decision -making. 08/05/17 brother Mark (Jose )called 4 of the 5 siblings each elected for him to serve as spokesperson for proxy decision-making. He left a voicemail for the fifth sibling Itzel. 08/08/17 call back from sister Itzel, who defers decision making/proxy to brother Jose. Jose willing to cont to serve as HC proxy. If patient is able to be medically extubated she may be able to participate in decision-making, and complete healthcare surrogate designation, palliative can assist with this if she is able. * Goals: Brother continues to express aggressive goals as consistent with patient known wishes. He is open to ongoing conversations as clinical course evolves. He is hopeful that the patient will improve with ongoing aggressive treatments. Patient today is more communicative also indicates she wishes to continue with treatments. Would need to explore REINTUBATION status today w pt upon extubation. At this time, though communication barriers, seems to indicate she would want intubation again if indicated. * CODE STATUS:Full code * SYMPTOMS: --dyspnea-admitted for respiratory distress. Worsening respiratory status, metabolic acidosis, intubated 08/04. She is currently breathing comfortably on mechanical vent. CXR with slight improvement. CPAP trials ongoing- plan for medical extubation today per critical care --Pain-patient appears comfortable at time of exam, currently unable to report pain however potential sources would include: Bedbound status, recent invasive procedure intubation, central line, multiple recent hospitalizations and surgical procedures, KAY to back still in place. She is noted to be on chronic morphine long-acting and short-acting prior to admission and has underwent multiple procedures and hospitalizations recently so likely has some underlying chronic pain. She was initially started on on fentanyl drip --this is currently at 150 mics/hour. Today she does indicate that she has chronic pain, primarily to her back, baseline pain level is 5 out of 10 which she feels is reasonable. I did explore with her balancing sedation versus pain relief. and unable to increase pending extubation, she understands this. Discussed with nursing, critical care- may need to resume home scheduled long acting pain regimen. critical care will monitor how pt does post extubation. She is chronically on morphine extended release 15 mg every 12 hours, as well as morphine 15 mg prn for breakthrough pain; appears she is not opiate salomón may need additional pain regimen as clinical course goes forward. Will continue to evaluate. * Palliative care will continue to follow during hospital course as condition evolves, to assist patient/decision-maker with understanding of medical conditions, weighing benefits/burdens of treatment options, for clarification of goals of treatment. Additionally will assist with any symptoms of palliative concern . (Angelica Barajas) Time Spent Total Floor Time (mins): 30 (chart review, PE, d/w nurse, d/w critical care) (Angelica Barajas) Attestation To help prompt me to consider important information that might be impacting today's encounter and assessment, information from prior notes written by myself or my colleagues may have been "brought forward" into today's note. My signature on this note, however, is an attestation that I personally performed the exam, history, and/or decision-making noted today, and, unless otherwise indicated, the interactions with patient, family, and staff as well as the review of records all occurred today. I also attest that the listed assessment and stated plan reflect my best clinical judgment today based on the combination of historical information, prior notes, and today's exam/ interactions. When time spent is documented, it refers only to time spent today by the signer, or if indicated, combined time spent today by collaborating physician/nurse practitioner. (Angelica Barajas) Collaborating MD Comments Chart reviewed. Case discussed with palliative care nurse practitioner. Above AISLINN note reviewed and I concur. . (Arnulfo Jacques MD) Angelica Barajas August 11, 2017 11:32 Arnulfo Jacques MD Sep 10, 2017 15:12
[2017-08-11] MEDS ORDERED: FUROSEMIDE 40 MG/4 ML VIAL IV PUSH ONE ×2 (12:00→19:00)
[2017-08-11] MEDS: LABETALOL HCL 100 MG/20 ML VIAL IV PUSH PRN (13:55)
[2017-08-11] MEDS: FLUCONAZOLE 200 MG PREMIX BAG 100 ML IV SCH (14:53)
--- NOTE | 2017-08-11 15:30 | HHI.IDPN ---
Note Infectious Disease Note Patient alert and awake. On the vent. CPAP in progress. Responding to commands. Nods head that she feels okay. Afebrile. 76-year-old white female who presented to the Emergency Department from longterm facility with respiratory distress. She was noted to be complaining also of chest discomfort. The patient was intubated and is currently on a ventilator. In the emergency department, the patient had heart rate of 144, temperature 100.9 and respiratory rate of 53. Lactic acid level was 9.4. She was recently diagnosed with acute renal failure at [facility] and was transferred to a longterm facility upon discharge there on 08/02/2017 . Evaluated at [facility] for altered mental status and also acute kidney disease. The patient has a history of recent surgery at [facility] in [place]. She underwent removal of hardware from the lumbosacral spine L1-S1 because of exposed loosened hardware from prior surgery. She reportedly had surgery of the lumbosacral spine 10 years prior. The surgery at [facility] was on 06/27. Intraoperative culture reportedly had MRSA. She was put on antibiotics by infectious disease to complete on 07/29/2017. She was receiving intravenous vancomycin. She was seen by infectious disease physician at [facility] where she was noted to have acute renal failure. 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 PAST MEDICAL HISTORY: 1. L4-S1 fusion. Recent hardware removal. 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 The patient noted to have loosened hardware 2. Atrial fibrillation. 3. COPD, 4. Plasmacytoma, 5. Anemia, 6. Osteoarthritis, 7. Appendectomy, 8. Hysterectomy, 9. Tonsillectomy, 10. Cholecystectomy, 11. Gastroesophageal reflux disease surgery. ALLERGIES: VANCOMYCIN, ALBUTEROL, GABAPENTIN, IPRATROPIUM, IRON, PENICILLIN G, PROCHLORPERAZINE Antibiotics: Aztreonam. Daptomycin. Diflucan. Objective: Vital Signs Date Time Temp Pulse Resp B/P (MAP) Pulse Ox O2 Delivery O2 Flow Rate FiO2 08/11/17 14:55 40 08/11/17 14:00 98 08/11/17 13:50 97 35 08/11/17 12:15 98 35 08/11/17 12:15 35 08/11/17 12:00 100 08/11/17 12:00 35 08/11/17 12:00 99.3 100 16 159/89 (112) 99 08/11/17 10:00 100 08/11/17 08:00 95 08/11/17 08:00 35 08/11/17 08:00 99.3 95 24 151/81 (104) 97 08/11/17 07:59 96 35 08/11/17 04:05 96 35 08/11/17 04:00 98.0 93 16 147/85 (105) 96 08/11/17 04:00 35 08/11/17 00:00 98.3 92 16 148/84 (105) 95 08/11/17 00:00 35 08/10/17 23:55 98 35 08/10/17 20:00 98.5 88 19 152/73 (99) 98 08/10/17 20:00 35 08/10/17 19:54 97 35 08/10/17 18:00 79 08/10/17 17:22 35 08/10/17 16:00 98.6 81 21 140/67 (91) 97 08/10/17 16:00 81 08/10/17 16:00 35 08/10/17 15:35 96 35 Laboratory Tests Test 08/10/17 06:21 08/11/17 05:09 White Blood Count 11.8 TH/MM3 10.2 TH/MM3 Red Blood Count 2.86 MIL/MM3 2.84 MIL/MM3 Hemoglobin 9.2 GM/DL 9.1 GM/DL Hematocrit 27.8 % 27.7 % Mean Corpuscular Volume 97.0 FL 97.4 FL Mean Corpuscular Hemoglobin 32.3 PG 32.0 PG Mean Corpuscular Hemoglobin Concent 33.3 % 32.8 % Red Cell Distribution Width 18.1 % 18.0 % Platelet Count 169 TH/MM3 183 TH/MM3 Mean Platelet Volume 8.6 FL 8.5 FL Neutrophils (%) (Auto) 95.4 % 93.6 % Lymphocytes (%) (Auto) 1.4 % 1.6 % Monocytes (%) (Auto) 3.1 % 4.7 % Eosinophils (%) (Auto) 0.0 % 0.0 % Basophils (%) (Auto) 0.1 % 0.1 % Neutrophils # (Auto) 11.2 TH/MM3 9.6 TH/MM3 Lymphocytes # (Auto) 0.2 TH/MM3 0.2 TH/MM3 Monocytes # (Auto) 0.4 TH/MM3 0.5 TH/MM3 Eosinophils # (Auto) 0.0 TH/MM3 0.0 TH/MM3 Basophils # (Auto) 0.0 TH/MM3 0.0 TH/MM3 CBC Comment DIFF FINAL DIFF FINAL Differential Comment Laboratory Tests Test 08/10/17 06:21 08/11/17 05:09 Blood Urea Nitrogen 65 MG/DL 70 MG/DL Creatinine 2.54 MG/DL 2.32 MG/DL Random Glucose 142 MG/DL 142 MG/DL Total Protein 6.8 GM/DL 7.2 GM/DL Albumin 1.6 GM/DL 2.1 GM/DL Calcium Level 7.4 MG/DL 7.6 MG/DL Phosphorus Level 4.5 MG/DL 4.0 MG/DL Magnesium Level 1.9 MG/DL 2.0 MG/DL Alkaline Phosphatase 142 U/L 145 U/L Aspartate Amino Transf (AST/SGOT) 51 U/L 40 U/L Alanine Aminotransferase (ALT/SGPT) 322 U/L 236 U/L Total Bilirubin 0.5 MG/DL 0.7 MG/DL Sodium Level 140 MEQ/L 141 MEQ/L Potassium Level 3.7 MEQ/L 3.4 MEQ/L Chloride Level 104 MEQ/L 104 MEQ/L Carbon Dioxide Level 26.3 MEQ/L 25.9 MEQ/L Anion Gap 10 MEQ/L 11 MEQ/L Estimat Glomerular Filtration Rate 18 ML/MIN 20 ML/MIN Protein Corrected Calcium 7.6 MG/DL Imaging: Chest X-Ray 08/11/17 0600 Signed Impressions: Service Date/Time: August 03:16 - CONCLUSION: Mild interval improvement in bilateral airspace disease with significant residual. Epifanio Sweeney MD Chest X-Ray 08/09/17 0000 Signed Impressions: Service Date/Time: Wednesday, August 09, 2017 11:34 - CONCLUSION: 1. Bilateral airspace disease with possibly some improving aeration in the lung bases. 2. Stable cardiomegaly. Stable position of life support tubes. 3. Stable calcifications overlying the soft tissues of the shoulders symmetrically and bilaterally. Findings are nonspecific and can represent entities such as dystrophic soft tissue calcifications, idiopathic tumoral calcinosis myositis ossificans as well as scleroderma and dermatomyositis. Findings are overtly benign, however Rogelio Santos MD Chest X-Ray 08/05/17 0600 Signed Impressions: Service Date/Time: Saturday, August 05, 2017 04:54 - CONCLUSION: Normal placement of nasogastric tube. Grossly stable aeration Sterling Aguilar MD Lumbar Spine CT 08/04/17 0000 Signed Impressions: Service Date/Time: August 13:46 - CONCLUSION: 1. There is low density in the soft tissues at the recent laminectomy site L4-L5 measuring up to 2.4 cm in thickness with out deformity of the posterior thecal sac at the laminectomy site. 2. Stable anterolisthesis at L5-S1 with bony fusion. 3. 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 Maykel Singh MD Abdomen/Pelvis CT 08/04/17 0000 Signed Impressions: Service Date/Time: August 13:46 - CONCLUSION: 1. There is stool diffusely throughout the colon suggesting constipation. 2. The solid organs of the abdomen are grossly intact. 3. No free air free fluid seen within the abdomen. No abscess is identified. 4. Small amount of free fluid within the abdomen. 5. Bilateral pleural effusions and consolidation. 6. Cardiomegaly. 7. 2 mm nonobstructing stone in the lower pole collecting system of the right kidney. 8. Anasarca. Mil Toro MD Abdomen Fluoroscopy 08/04/17 0000 Signed Impressions: Service Date/Time: August 17:00 - CONCLUSION: Uncomplicated nasoenteric suction type catheter (NGT) placement as above. Librado Hernandez MD PHYSICAL EXAMINATION: GENERAL: Awake and alert. HEENT: Extraocular movements appear intact. No icterus. Oropharynx intubated. Mucosa appears moist. NECK: No swelling or adenopathy. LUNGS: Rhonchi at the bases. HEART: Irregular S1 and S2. No audible murmurs, rubs or gallops. ABDOMEN: Slightly distended, soft, decreased bowel sounds. BACK: KAY drainage catheter exits the back and has scant jean-paul drainage. EXTREMITIES: No clubbing, cyanosis. Edema of the upper extremities. SKIN: No rash. NEUROLOGIC: Unable to fully assess. PSYCHIATRIC: Unable to fully assess. IMPRESSION: 1. Septic shock. Improved. 2. Acute hypercapnic respiratory failure. 3. Acute renal failure. 4. Shock liver, probably from sepsis. LFTs improving. 5. Lung infiltrate. Improved on last chest x-ray. 6. Osteomyelitis of the lumbar spine. Patient was placed on IV antibiotics By ID at [facility]. The patient is status post hardware removal from the lumbar spine and noted to have methicillin-resistant Staph aureus on culture. She received a course of IV vancomycin which was completed on 07/29/2017. Subsequently, she was started on daptomycin for chronic infection with plan to treat the patient for 6 weeks after discharge from [facility] on 08/02. Has drain in place at the lumbar spine. She was due to have an appointment at [facility] in [place] later this month to assess the lumbar wound and possibly remove the lumbar drainage catheter. 6. Candiduria. Appears to be improving. RECOMMENDATIONS: 1. Continue the Daptomycin at q 48 hour interval. 2. Continue Azactam. 3. Continue Diflucan. 4. Monitor clinical status. Dion Wing MD August 11, 2017 15:30
[2017-08-11] MEDS: WARFARIN SOD 1 MG TAB PO SCH (16:59)
[2017-08-11] MEDS ORDERED: ALBUMIN 25% INJ 100 ML IV ONE (18:00)
[2017-08-12] VITALS (27 sets, daily range): BP systolic 128–172; BP diastolic 64–80; PULSE 61–111; RESP 12–19; TEMP 96.9–98.9; O2SAT 94–100
[2017-08-12] MEDS: RESP: IPRATROPIUM 0.5 MG/2.5 ML NEB NEB SCH ×4 (04:00→20:42)
[2017-08-12] MEDS: CHLORHEXIDINE GLUCONATE 2 % 1 PACK (2 CLOTHS) TOP SCH (04:00)
[2017-08-12] MEDS: fentaNYL DRIP 250 ML IV PRN ×3 (04:30→20:57)
[2017-08-12] MEDS: DILTIAZEM HCL 60 MG TAB PO SCH ×3 (05:09→20:57)
[2017-08-12] MEDS: ARTIFICIAL TEARS OPTH SOLN 15 ML BTL EACH EYE SCH ×3 (05:09→20:57)
[2017-08-12] MEDS: AZTREONAM INJ 1,000 MG in SODIUM CHLORIDE 0.9% INJ 100 ML IV SCH ×2 (05:09→16:23)
[2017-08-12] MEDS: SODIUM CHLORIDE 0.9% FLUSH 10 ML FLUSH IV FLUSH SCH ×5 (05:09→20:58)
[2017-08-12 06:28] LABS: AUTOMATED NEUTROPHIL # 7.4 TH/MM3 (1.8-7.7); BASOPHIL % 0.1 % (0.0-2.0); EOSINOPHIL % 0.2 % (0.0-4.0); HEMATOCRIT 26.8 % (35.0-46.0); HEMOGLOBIN 9.1 GM/DL (11.6-15.3); LYMPH % 3.2 % (9.0-44.0); LYMPHOCYTE # 0.3 TH/MM3 (1.0-4.8); MEAN CELL VOLUME 96.9 FL (80.0-100.0); MEAN CORPUSCULAR HEMOGLOBIN 32.9 PG (27.0-34.0); MEAN CORPUSCULAR HGB CONC 33.9 % (32.0-36.0); MEAN PLATELET VOLUME 8.3 FL (7.0-11.0); MONO % 6.9 % (0.0-8.0); MONOCYTE # 0.6 TH/MM3 (0-0.9); NEUT % 89.6 % (16.0-70.0); PLATELET COUNT 179 TH/MM3 (150-450); RED BLOOD COUNT 2.77 MIL/MM3 (4.00-5.30); WHITE BLOOD COUNT 8.3 TH/MM3 (4.0-11.0)
[2017-08-12 06:42] LABS: INTERNATIONAL NORMALIZED RATIO 2.1 RATIO; PROTHROMBIN TIME - PATIENT 21.2 SEC (9.8-11.6)
[2017-08-12 06:56] LABS: ALBUMIN 2.5 GM/DL (3.4-5.0); ALT (GPT) 174 U/L (10-53); AST (GOT) 36 U/L (15-37); BICARBONATE 27.5 MEQ/L (21.0-32.0); CALCIUM 7.7 MG/DL (8.5-10.1); CHLORIDE 102 MEQ/L (98-107); CREATININE 1.98 MG/DL (0.50-1.00); GLOMERULAR FILTRATION RATE 25 ML/MIN (>89); GLUCOSE,RANDOM 134 MG/DL (74-106); MAGNESIUM 1.8 MG/DL (1.5-2.5); PHOSPHORUS 3.4 MG/DL (2.5-4.9); SODIUM (NA) 141 MEQ/L (136-145)
[2017-08-12 07:04] LABS: ALKALINE PHOSPHATASE 145 U/L (45-117); BLOOD UREA NITROGEN 68 MG/DL (7-18); TOTAL BILIRUBIN ADULT 0.9 MG/DL (0.2-1.0); TOTAL PROTEIN 7.3 GM/DL (6.4-8.2)
[2017-08-12] MEDS ORDERED: ALBUMIN 25% INJ 100 ML IV ONE (07:30)
[2017-08-12] MEDS: CHLORHEXIDINE 0.12% (ORAL KIT) 15 ML CUP MT SCH ×2 (08:10→20:58)
[2017-08-12] MEDS: POTASSIUM CHLOR 20 MEQ PREMIX 100 ML IV SCH ×2 (08:18→10:24)
[2017-08-12] MEDS: MUPIROCIN 2% OINT 1 APPLIC/GM SYR EACH NARE SCH ×2 (08:21→20:57)
[2017-08-12] MEDS: LACTULOSE SYRUP 20 GM/30 ML CUP PO SCH ×2 (08:22→20:57)
[2017-08-12] MEDS: DOCUSATE SODIUM 50 MG/SENNA 8.6 MG TAB PO SCH ×2 (08:25→20:57)
[2017-08-12] MEDS: FAMOTIDINE 20 MG TAB PO SCH ×2 (08:25→20:58)
[2017-08-12] MEDS: ASCORBIC ACID 500 MG TAB PO SCH (08:26)
[2017-08-12] MEDS: ZINC SULFATE 220 MG CAP PO SCH (08:26)
[2017-08-12] MEDS ORDERED: FUROSEMIDE 40 MG/4 ML VIAL IV PUSH ONE (08:30)
--- NOTE | 2017-08-12 09:01 | HHI.CCPN ---
Subjective Remarks/Hospital Course 76-year-old female resident of the longterm presents with complaints of respiratory difficulty. Onset was today. She is also complaining with some chest discomfort. She denies productive cough. Her symptoms are moderate to severe with no exacerbating factors. This patient was reportedly just discharged from [facility] with discitis secondary to MRSA. 53: Afebrile. Early this a.m. patient still having respiratory difficulty noted metabolic acidosis with a bicarb level 13, sodium bicarbonate infusion continues. She noticed to have respiratory distress ABGs performed. Impending intubation 7.10. Patient noted to have KAY drain emanating from back with dressing taken down no area redness yellow fluid and KAY drain sent for wound culture analysis. Upon further investigation patient's brother at bedside patient had lumbar hardware removed from [facility] in [place] approximately 6 weeks ago secondary to hardware eroding through the back and could be visualized on site. 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 Gottlieb cultures are pending. Attempts at medical record release forms from [facility] are pending. Patient previously last week at [facility] for acute kidney injury/urinary tract infection, attempting to obtain medical record. Patient was discharged approximately 2-3 days ago per report. This a.m. patient went into A. fib RVR with a heart rate in the 150s patient was given metoprolol 2 doses heart rate 112, patient is known to have chronic atrial fibrillation previously on Cardizem and digoxin 0.125 IV 1 dose Cardizem reinitiated. Discussion with patient regarding intubation and patient' s brother at bedside patient desires aggressive measures be undertaken patient requests intubation if needed and to remain a full code. Noted open areas skin wound areas on the lower extremities well-healed skin graft site left thigh wound care has been consulted. Palliative care also has been consulted to define goals of care. 08/05: Patient noted with elevated INR, Coumadin has been discontinued for 2 days. Vitamin K ordered. No active signs of bleeding. Patient on sedation vacation following commands. Afib rate controlled 70's-80's since addition to p.o. Cardizem. 6: Patient is currently on PSV trial FiO2 35%. Minimal secretions. Tolerating tube feeds. No bowel movement yesterday. Follows commands. 08/08: Temperature currently 98.8. Adequate weaning parameters however no cough leak. We will give dexamethasone 1 day and recheck cuff leak in a.m. Awake and follows commands. Transaminases normalized. Creatinine continues to slowly rise. 08/09: No events overnight. Patient is lethargic, easily arousable, tolerating CPAP at 10/5. T-max of 99.9. Still no cuff leak. Urine output is appropriate , with 3650 mL's over the last 24 hours. No family present at bedside. 08/10: No events over the night. Patient is awake, complaining of back pain, on fentanyl at 150 mics/hr. Tolerating CPAP 15/5. Afebrile over the night, with a T-max of 98.8. Negative fluid balance over the last 24 hours, -500 cc. 08/11: Patient remains intubated and sedated. She did well over the night. T- max of 98.6. She continues to be on fentanyl drip for back pain, asleep, easily arousable, follows commands. 08/12: No events over the night. Patient remains intubated, on fentanyl drip, easily arousable, following commands. Great response to diuretics, more than 3600 mL's urine output. Patient tolerated CPAP well yesterday but after being cleaned she developed tachycardia and tachypnea requiring full support. T-max of 99.3. Objective Vital Signs Date Time Temp Pulse Resp B/P (MAP) Pulse Ox O2 Delivery O2 Flow Rate FiO2 08/12/17 07:32 100 35 08/12/17 06:00 76 08/12/17 04:00 98.9 16 144/71 (95) Intake and Output 08/12/17 08/12/17 08/13/17 08:00 16:00 00:00 Intake Total 954 ml Output Total 2000 ml Balance -1046 ml Result Diagram: 08/12/17 0544 08/12/17 0544 Other Results No new culture data Imaging Last 24 hours Impressions Chest X-Ray 08/11/17 0600 Signed Impressions: Service Date/Time: August 03:16 - CONCLUSION: Mild interval improvement in bilateral airspace disease with significant residual. Epifanio Sweeney MD Last Impressions Chest X-Ray 08/08/17 0600 Signed Impressions: Service Date/Time: Tuesday, August 08, 2017 04:32 - CONCLUSION: Significant consolidation throughout both lungs. Cardiomegaly and pleural effusions persist.. Joseph Toro MD Lumbar Spine CT 08/04/17 0000 Signed Impressions: Service Date/Time: August 13:46 - CONCLUSION: 1. There is low density in the soft tissues at the recent laminectomy site L4-L5 measuring up to 2.4 cm in thickness with out deformity of the posterior thecal sac at the laminectomy site. 2. Stable anterolisthesis at L5-S1 with bony fusion. 3. 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 Maykel Singh MD Abdomen/Pelvis CT 08/04/17 0000 Signed Impressions: Service Date/Time: August 13:46 - CONCLUSION: 1. There is stool diffusely throughout the colon suggesting constipation. 2. The solid organs of the abdomen are grossly intact. 3. No free air free fluid seen within the abdomen. No abscess is identified. 4. Small amount of free fluid within the abdomen. 5. Bilateral pleural effusions and consolidation. 6. Cardiomegaly. 7. 2 mm nonobstructing stone in the lower pole collecting system of the right kidney. 8. Anasarca. Mil Toro MD Abdomen Fluoroscopy 08/04/17 0000 Signed Impressions: Service Date/Time: August 17:00 - CONCLUSION: Uncomplicated nasoenteric suction type catheter (NGT) placement as above. Librado Hernandez MD Procedures 08/04 -placement of NG tube IR Objective Remarks General - elderly lady, intubated, sleeping, easily arousable, ill-appearing HEENT - pupils are equal, reactive, sclerae are anicteric, + kyphosis, unable to appreciate JVD, orally intubated, + NGT CV - regular heart, no murmurs Chest - coarse breath sounds b/l, decreased air entry at bases, no wheezes Abdomen - soft, not distended, non-tender, BS present Extremities - warm, 2-3+ edema over both upper and lower extremities, slightly improved, + peripheral pulses Neuro - intubated and sedated, easily arousable, follows commands, moves all extremities but she remains weak Date of Insertion: August 04, 2017 A/P Problem List: (1) Afib ICD Code: I48.91 - Unspecified atrial fibrillation Status: Acute (2) EMIR (acute kidney injury) ICD Code: N17.9 - Acute kidney failure, unspecified Status: Acute (3) CKD (chronic kidney disease) stage 4, GFR 15-29 ml/min ICD Code: N18.4 - Chronic kidney disease, stage 4 (severe) Status: Acute (4) Renal insufficiency ICD Code: N28.9 - Disorder of kidney and ureter, unspecified Status: Acute (5) Chronic pain ICD Code: G89.29 - Other chronic pain Status: Acute (6) Atrial fibrillation with RVR ICD Code: I48.91 - Unspecified atrial fibrillation Status: Acute (7) Hyperkalemia ICD Code: E87.5 - Hyperkalemia Status: Acute (8) Severe sepsis ICD Code: A41.9 - Sepsis, unspecified organism; R65.20 - Severe sepsis without septic shock (9) Metabolic acidosis ICD Code: E87.2 - Acidosis Status: Acute (10) Hypoglycemia ICD Code: E16.2 - Hypoglycemia, unspecified Status: Acute (11) Cardiomegaly ICD Code: I51.7 - Cardiomegaly Status: Acute Assessment and Plan Neuro/Psych: Chronic pain syndrome Status post removal of lumbar/sacral L5/S1 hardware 06/19 Chronic opioid use Patient is currently on a fentanyl drip at 250 mcg there are for sedation/ analgesia while intubated Goal of RASS -1 Neuro checks per ICU protocol Daily sedation vacation Acetaminophen 650 mg every 6 hours as needed for temperature greater than 101.5 Cyclobenzaprine 10 mg 3 times daily as needed muscle relaxant Morphine sulfate 15 mg every 4 hours as needed pain currently being held Respiratory: Acute hypercapnic respiratory failure -improving Mild pulmonary hypertension COPD/asthma Currently on PRVC, PIP of 28, patient synchronized with event, no auto PEEP CPAP trial at 11 Check for cuff leak Ventilator bundle Ipratropium aerosols every 6 hours Albuterol allergy When clinically indicated resume nasal fluticasone home medication Completed 48 hours of dexamethasone Additional diuresis to help with the ventilator weaning Cardiovascular: A. yani RVR-resolved History of essential hypertension Chronic systolic congestive heart failure Chronic atrial fibrillation Cardizem 60 mg every 8 hours, since home medicines include Cardizem CD 08/05 Echo- The left ventricular systolic function is moderately reduced with an estimated ejection fraction in the range of 40-45%. Dyskinetic apical cap wall motion. The right ventricle is moderately dilated. Moderate mitral valve regurgitation. Aortic valve sclerosis is present. There is mild to moderate tricuspid valve regurgitation. There is estimated mild pulmonary hypertension present (range 40-50 mmHg). BNP [phone]->[id number] Gradually restart home medication as below Home medications include isosorbide dinitrate 30 mg daily, metoprolol succinate 50 mg daily lisinopril 2.5 mg daily. These are currently on hold On Coumadin per pharmacy Replete calcium and potassium and give additional Lasix today Renal: Acute renal insufficiency incentive chronic kidney disease stage IV Right renal stone/no hydronephrosis Great response to diuretics yesterday Creatinine gradually coming down currently now at 1.98 Maintain Simpson -- Strict I/Os FEN/GI: Continue tube feeds 08/05 -difficult NG tube placement, placed by IR Famotidine 10 mg twice daily for GI prophylaxis. Docusate sodium/senna 1 tablet twice daily, lactulose 30 cc twice daily for bowel regimen Heme/ID: Anemia of chronic disease Thrombocytopenia Leukocytosis MRSA Discitis Chronic warfarin use Funguria Continue Atrezonam, daptomycin, fluconazole. Infectious disease consult following Follow-up blood and urine cultures INR is pending Coumadin per pharmacy Medical records release obtained for medical records at [facility] [facility] - The patient has a history of recent surgery at [facility] in [place]. She underwent removal of hardware from the lumbosacral spine L1-S1 because of exposed loosened hardware from prior surgery. She reportedly had surgery of the lumbosacral spine 10 years prior. The surgery at [facility] was on 06/27. Intraoperative culture reportedly had MRSA. She was put on antibiotics by infectious disease to complete on 07/29/2017. She was receiving intravenous vancomycin. The patient completed the course of the vancomycin. There is a notation in the medical record that she is ALLERGIC TO VANCOMYCIN. She is currently on daptomycin. She continues with a drainage catheter in the lumbosacral region from prior surgery. She was seen by infectious disease physician at [facility] and reportedly will be in need of IV antibiotics for 6 weeks because of osteomyelitis of the lumbar spine. 08/06 UTI -Denise-fluconazole 200mg/d 08/04- Blood Cultures -NGTD Endocrine: Hypoglycemia-resolved Glucose monitoring per ICU protocol -- SSI Prophylaxis: GI Prophylaxis Famotidine BID DVT Prophylaxis -- SCDs -- INR therapeutic Lines: PICC line Level 2 follow-up No family present at bedside. Discussed with brother yesterday at bedside. Marcos Ley MD August 12, 2017 09:01
[2017-08-12] MEDS: DAPTOmycin INJ 500 MG in SODIUM CHLORIDE 0.9% INJ 100 ML IV SCH (10:26)
[2017-08-12] MEDS: hydrALAZINE HCL 20 MG/ML VIAL IV PUSH PRN (11:27)
--- NOTE | 2017-08-12 12:25 | HHI.HCPN ---
Reason for visit a. To assist with evaluation and management of symptoms including: dyspnea, pain b. To assist medical decision maker(s) with: better understanding of current medical conditions; weighing benefits/burdens of medical treatment options; making medical treatment decisions. (Angelica Barajas) Subjective/Interval History Patient seen today to follow-up on dyspnea, comfort. Stable continues CPAP trials today, planned for medical extubation yesterday however apparently during nursing care patient became tachypneic and anxious was unable to proceed with extubation, and placed back on full ventilator settings. CPAP again today, with plans for possible medical extubation later today if patient tolerates. CBC today unremarkable. Renal functions continue to improve BUN 68/creatinine 1.98 Pt seen in room. Alert, nodding and gesturing. Explore CPAP, planned extubation again today , she nods in agreement with this. Exploration of her pain she indicates via gesturing that it is a little better today. She is currently on fentanyl 250 mics an hour. Explore reintubation status she gives a thumbs up and nods vehemently indicating she would want to back should she experience any distress. Discussed with primary nurse. D/w critical care pt wishes RE reintubation . Family/friend interactions Following exam call to brother Jose, provided update on current condition, assessment and plan for possible medical extubation today. He has no additional questions. He has palliative contact information. . (Angelica Barajas) Advance Directives Living Will: Never completed Health Care Surrogate: Never completed Durable Power of Front End Alignment Specialist: Never completed (Angelica Barajas) Objective Vital Signs Date Time Temp Pulse Resp B/P (MAP) Pulse Ox O2 Delivery O2 Flow Rate FiO2 08/12/17 11:45 99 35 08/12/17 11:45 35 08/12/17 11:37 99 35 08/12/17 10:55 35 08/12/17 10:55 100 35 08/12/17 10:11 99 35 08/12/17 10:00 90 08/12/17 08:00 96.9 84 12 160/80 (106) 98 08/12/17 08:00 35 08/12/17 08:00 84 08/12/17 07:32 100 35 08/12/17 06:00 76 08/12/17 04:14 99 35 08/12/17 04:00 69 08/12/17 04:00 98.9 68 16 144/71 (95) 98 08/12/17 04:00 35 08/12/17 02:00 61 08/12/17 01:13 99 35 08/12/17 00:00 98.7 61 18 128/64 (85) 97 08/12/17 00:00 35 08/12/17 00:00 64 08/11/17 22:40 98 35 08/11/17 22:00 55 08/11/17 20:00 98.4 79 20 143/75 (97) 97 08/11/17 20:00 85 08/11/17 20:00 35 08/11/17 19:57 98 35 08/11/17 18:00 94 08/11/17 16:18 35 08/11/17 16:04 93 35 08/11/17 16:00 99.0 79 17 156/74 (101) 93 08/11/17 16:00 35 08/11/17 16:00 79 08/11/17 14:55 40 08/11/17 14:00 98 08/11/17 13:50 97 35 08/11/17 12:15 98 35 08/11/17 12:15 35 Intake & Output 08/12/17 08/12/17 06:59 18:59 Intake Total 1054 ml 550 ml Output Total 2000 ml Balance -946 ml 550 ml IV Total 450 ml 550 ml Tube Feeding 404 ml Other 200 ml Output Urine Total 2000 ml Drainage Total 0 ml # Bowel Movements 0 Physical Exam CONSTITUTIONAL/GENERAL: This is an adequately nourished patient, alert and nodding on mechanical vent TUBES/LINES/DRAINS: Midline iv left upper tremor. ET tube. NG tube. Soft restraints bilateral upper extremities. CARDIOVASCULAR: Irregular rate and rhythm. Atrial fib observed. No JVD. Peripheral pulses symmetric-pedal pulses very faint. + 2+ edema bilateral upper extremities. RESPIRATORY/CHEST: Symmetric, unlabored respirations via mechanical vent.+CPAP. Clear to auscultation. Decreased air movement. GASTROINTESTINAL: Abdomen soft, no apparent tenderness though limited assessment , nondistended. No hepato-splenomegaly, or palpable masses. No guarding. Bowel sounds hypoactive. GENITOURINARY: Without palpable bladder distension. Catheter in place clear yellow urine. MUSCULOSKELETAL: Extremities without clubbing, cyanosis, or edema. Healed graft scars to upper legs. Dressings to lower legs. Lower legs are very thin, with significant muscle atrophy. Arthritic appearing deformity to feet. Kyphotic posture, leaning forward in bed. NEUROLOGICAL: Alert nods to yes/no questions. Able to gesture some weakly with hands. Appears oriented to person, place and family- via nodding yes/no. Limited further assessment due to communication barriers. Cooperative, moving all 4 extremities very weakly. PSYCHIATRIC: No obvious anxiety/depression--limited assessment secondary to clinical condition. . (Angelica Barajas) Diagnostic Tests Laboratory Laboratory Tests Test 08/09/17 12:13 08/10/17 06:21 08/10/17 12:53 08/11/17 05:09 White Blood Count 15.7 TH/MM3 (4.0-11.0) 11.8 TH/MM3 (4.0-11.0) 10.2 TH/MM3 (4.0-11.0) Red Blood Count 3.55 MIL/MM3 (4.00-5.30) 2.86 MIL/MM3 (4.00-5.30) 2.84 MIL/MM3 (4.00-5.30) Hemoglobin 11.5 GM/DL (11.6-15.3) 9.2 GM/DL (11.6-15.3) 9.1 GM/DL (11.6-15.3) Hematocrit 34.9 % (35.0-46.0) 27.8 % (35.0-46.0) 27.7 % (35.0-46.0) Mean Corpuscular Volume 98.1 FL (80.0-100.0) 97.0 FL (80.0-100.0) 97.4 FL (80.0-100.0) Mean Corpuscular Hemoglobin 32.3 PG (27.0-34.0) 32.3 PG (27.0-34.0) 32.0 PG (27.0-34.0) Mean Corpuscular Hemoglobin Concent 32.9 % (32.0-36.0) 33.3 % (32.0-36.0) 32.8 % (32.0-36.0) Red Cell Distribution Width 18.0 % (11.6-17.2) 18.1 % (11.6-17.2) 18.0 % (11.6-17.2) Platelet Count 164 TH/MM3 (150-450) 169 TH/MM3 (150-450) 183 TH/MM3 (150-450) Mean Platelet Volume 8.8 FL (7.0-11.0) 8.6 FL (7.0-11.0) 8.5 FL (7.0-11.0) Neutrophils (%) (Auto) 95.6 % (16.0-70.0) 95.4 % (16.0-70.0) 93.6 % (16.0-70.0) Lymphocytes (%) (Auto) 2.2 % (9.0-44.0) 1.4 % (9.0-44.0) 1.6 % (9.0-44.0) Monocytes (%) (Auto) 2.1 % (0.0-8.0) 3.1 % (0.0-8.0) 4.7 % (0.0-8.0) Eosinophils (%) (Auto) 0.0 % (0.0-4.0) 0.0 % (0.0-4.0) 0.0 % (0.0-4.0) Basophils (%) (Auto) 0.1 % (0.0-2.0) 0.1 % (0.0-2.0) 0.1 % (0.0-2.0) Neutrophils # (Auto) 15.0 TH/MM3 (1.8-7.7) 11.2 TH/MM3 (1.8-7.7) 9.6 TH/MM3 (1.8-7.7) Lymphocytes # (Auto) 0.3 TH/MM3 (1.0-4.8) 0.2 TH/MM3 (1.0-4.8) 0.2 TH/MM3 (1.0-4.8) Monocytes # (Auto) 0.3 TH/MM3 (0-0.9) 0.4 TH/MM3 (0-0.9) 0.5 TH/MM3 (0-0.9) Eosinophils # (Auto) 0.0 TH/MM3 (0-0.4) 0.0 TH/MM3 (0-0.4) 0.0 TH/MM3 (0-0.4) Basophils # (Auto) 0.0 TH/MM3 (0-0.2) 0.0 TH/MM3 (0-0.2) 0.0 TH/MM3 (0-0.2) CBC Comment AUTO DIFF DIFF FINAL DIFF FINAL Differential Comment AUTO DIFF CONFIRMED Blood Urea Nitrogen 61 MG/DL (7-18) 65 MG/DL (7-18) 70 MG/DL (7-18) Creatinine 2.78 MG/DL (0.50-1.00) 2.54 MG/DL (0.50-1.00) 2.32 MG/DL (0.50-1.00) Random Glucose 144 MG/DL (74-106) 142 MG/DL (74-106) 142 MG/DL (74-106) Total Protein 9.5 GM/DL (6.4-8.2) 6.8 GM/DL (6.4-8.2) 7.2 GM/DL (6.4-8.2) Albumin 1.9 GM/DL (3.4-5.0) 1.6 GM/DL (3.4-5.0) 2.1 GM/DL (3.4-5.0) Calcium Level 8.1 MG/DL (8.5-10.1) 7.4 MG/DL (8.5-10.1) 7.6 MG/DL (8.5-10.1) Alkaline Phosphatase 204 U/L (45-117) 142 U/L (45-117) 145 U/L (45-117) Aspartate Amino Transf (AST/SGOT) 88 U/L (15-37) 51 U/L (15-37) 40 U/L (15-37) Alanine Aminotransferase (ALT/SGPT) 445 U/L (10-53) 322 U/L (10-53) 236 U/L (10-53) Total Bilirubin 0.7 MG/DL (0.2-1.0) 0.5 MG/DL (0.2-1.0) 0.7 MG/DL (0.2-1.0) Sodium Level 139 MEQ/L (136-145) 140 MEQ/L (136-145) 141 MEQ/L (136-145) Potassium Level 3.7 MEQ/L (3.5-5.1) 3.7 MEQ/L (3.5-5.1) 3.4 MEQ/L (3.5-5.1) Chloride Level 102 MEQ/L (98-107) 104 MEQ/L (98-107) 104 MEQ/L (98-107) Carbon Dioxide Level 23.8 MEQ/L (21.0-32.0) 26.3 MEQ/L (21.0-32.0) 25.9 MEQ/L (21.0-32.0) Anion Gap 13 MEQ/L (5-15) 10 MEQ/L (5-15) 11 MEQ/L (5-15) Estimat Glomerular Filtration Rate 17 ML/MIN (>89) 18 ML/MIN (>89) 20 ML/MIN (>89) Phosphorus Level 4.5 MG/DL (2.5-4.9) 4.0 MG/DL (2.5-4.9) Magnesium Level 1.9 MG/DL (1.5-2.5) 2.0 MG/DL (1.5-2.5) Protein Corrected Calcium 7.6 MG/DL (8.5-10.1) Prothrombin Time 31.4 SEC (9.8-11.6) 26.1 SEC (9.8-11.6) Prothromb Time International Ratio 3.1 RATIO 2.6 RATIO Test 08/11/17 18:20 08/12/17 05:44 Potassium Level 3.6 MEQ/L (3.5-5.1) 3.5 MEQ/L (3.5-5.1) White Blood Count 8.3 TH/MM3 (4.0-11.0) Red Blood Count 2.77 MIL/MM3 (4.00-5.30) Hemoglobin 9.1 GM/DL (11.6-15.3) Hematocrit 26.8 % (35.0-46.0) Mean Corpuscular Volume 96.9 FL (80.0-100.0) Mean Corpuscular Hemoglobin 32.9 PG (27.0-34.0) Mean Corpuscular Hemoglobin Concent 33.9 % (32.0-36.0) Red Cell Distribution Width 18.0 % (11.6-17.2) Platelet Count 179 TH/MM3 (150-450) Mean Platelet Volume 8.3 FL (7.0-11.0) Neutrophils (%) (Auto) 89.6 % (16.0-70.0) Lymphocytes (%) (Auto) 3.2 % (9.0-44.0) Monocytes (%) (Auto) 6.9 % (0.0-8.0) Eosinophils (%) (Auto) 0.2 % (0.0-4.0) Basophils (%) (Auto) 0.1 % (0.0-2.0) Neutrophils # (Auto) 7.4 TH/MM3 (1.8-7.7) Lymphocytes # (Auto) 0.3 TH/MM3 (1.0-4.8) Monocytes # (Auto) 0.6 TH/MM3 (0-0.9) Eosinophils # (Auto) 0.0 TH/MM3 (0-0.4) Basophils # (Auto) 0.0 TH/MM3 (0-0.2) CBC Comment DIFF FINAL Differential Comment Prothrombin Time 21.2 SEC (9.8-11.6) Prothromb Time International Ratio 2.1 RATIO Blood Urea Nitrogen 68 MG/DL (7-18) Creatinine 1.98 MG/DL (0.50-1.00) Random Glucose 134 MG/DL (74-106) Total Protein 7.3 GM/DL (6.4-8.2) Albumin 2.5 GM/DL (3.4-5.0) Calcium Level 7.7 MG/DL (8.5-10.1) Phosphorus Level 3.4 MG/DL (2.5-4.9) Magnesium Level 1.8 MG/DL (1.5-2.5) Alkaline Phosphatase 145 U/L (45-117) Aspartate Amino Transf (AST/SGOT) 36 U/L (15-37) Alanine Aminotransferase (ALT/SGPT) 174 U/L (10-53) Total Bilirubin 0.9 MG/DL (0.2-1.0) Sodium Level 141 MEQ/L (136-145) Chloride Level 102 MEQ/L (98-107) Carbon Dioxide Level 27.5 MEQ/L (21.0-32.0) Anion Gap 12 MEQ/L (5-15) Estimat Glomerular Filtration Rate 25 ML/MIN (>89) (Angelica Barajas) Result Diagram: 08/12/17 0544 08/12/17 0544 Imaging Last Impressions Chest X-Ray 08/11/17 0600 Signed Impressions: Service Date/Time: August 03:16 - CONCLUSION: Mild interval improvement in bilateral airspace disease with significant residual. Epifanio Sweeney MD Lumbar Spine CT 08/04/17 0000 Signed Impressions: Service Date/Time: August 13:46 - CONCLUSION: 1. There is low density in the soft tissues at the recent laminectomy site L4-L5 measuring up to 2.4 cm in thickness with out deformity of the posterior thecal sac at the laminectomy site. 2. Stable anterolisthesis at L5-S1 with bony fusion. 3. 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 Maykel Singh MD Abdomen/Pelvis CT 08/04/17 0000 Signed Impressions: Service Date/Time: August 13:46 - CONCLUSION: 1. There is stool diffusely throughout the colon suggesting constipation. 2. The solid organs of the abdomen are grossly intact. 3. No free air free fluid seen within the abdomen. No abscess is identified. 4. Small amount of free fluid within the abdomen. 5. Bilateral pleural effusions and consolidation. 6. Cardiomegaly. 7. 2 mm nonobstructing stone in the lower pole collecting system of the right kidney. 8. Anasarca. Mil Toro MD Abdomen Fluoroscopy 08/04/17 0000 Signed Impressions: Service Date/Time: August 17:00 - CONCLUSION: Uncomplicated nasoenteric suction type catheter (NGT) placement as above. Librado Hernandez MD Procedures 08/03/17 central line placed 08/04/17 intubated (Angelica Barajas) Assessment and Plan Disease Oriented Problem List: (1) Acute respiratory failure (2) CAD (coronary artery disease) (3) GERD (gastroesophageal reflux disease) (4) Anemia (5) Chest pain (6) Elevated troponin (7) Urinary tract infection (8) Sepsis (9) MRSA (methicillin resistant Staphylococcus aureus) septicemia (10) Atrial fibrillation with RVR (11) Hyperkalemia (12) Cardiomegaly (13) Hypoglycemia (14) Renal insufficiency (15) Metabolic acidosis (16) CKD (chronic kidney disease) stage 4, GFR 15-29 ml/min Symptom Scale: (1) Dyspnea 0-10 Scale: Unable to quantify (2) Pain 0-10 Scale: Unable to quantify Pertinent Non-Medical Issues 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 Not no children. Part of a very large family she has multiple siblings. She is closest with her brother Jose, who is local. Jose describes her as jessee and extremely kind and caring. 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 She may at some point regain ability to participate. Brother Jose indicates she has always listed him as primary contact, and has always indicated that she trusts him to make decisions when she cannot however he is not certain that she has completed any documentation of healthcare surrogate or advanced directives. Per [place] statutes legal decision making would fall to the majority of all of patient's siblings. Brother indicates that he has always been the one assisting her with medical needs, decisions. Will discuss with him further tomorrow and attempt to contact additional siblings to determine if they wish to participate in decision-making. 08/05/17 4 of 5 siblings defer to brother Jose. Ethical issues impacting care: None identified Important Contacts Brother Mark (Jose) [place] [phone] Sister Karrie defers to brother Bill Sister Malu defers to brother Bill Brother Sterling defers to brother Bill brother Gm defers to Bill Sister Itzel-- 08/08 defers to Jose . Prognosis This patient was admitted for respiratory distress, chest discomfort. She has had multiple recent hospitalizations and rehabilitation courses. Brother details that each time one condition stabilizes or improves she experiences another complication. She has required ongoing treatment for MRSA infection at a surgical site. Given her advanced age and multiple condition she does remain at risk for continued complications and decline and possibly . Code Status: Full Code Plan * Legal decision maker: Patient currently on mechanical vent, sedation unable to participate in decision-making. She may at some point regain ability to participate. Brother Jose indicates she has always listed him as primary contact, and has always indicated that she trusts him to make decisions when she cannot however he is not certain that she has completed any documentation of healthcare surrogate or advanced directives. Per [place] statutes legal decision making would fall to the majority of all of patient's siblings. Brother indicates that he has always been the one assisting her with medical needs, decisions. Will discuss with him further tomorrow and attempt to contact additional siblings to determine if they wish to participate in decision -making. 08/05/17 brother Mark (Jose )called 4 of the 5 siblings each elected for him to serve as spokesperson for proxy decision-making. He left a voicemail for the fifth sibling Itzel. 08/08/17 call back from sister Itzel, who defers decision making/proxy to brother Jose. Joes willing to cont to serve as HC proxy. If patient is able to be medically extubated she may be able to participate in decision-making, and complete healthcare surrogate designation, palliative can assist with this if she is able. * Goals: Brother continues to express aggressive goals as consistent with patient known wishes. He is open to ongoing conversations as clinical course evolves. At this time, even while on vent, pt seems to indicate she would want intubation again if indicated. * CODE STATUS:Full code * SYMPTOMS: --dyspnea-admitted for respiratory distress. Worsening respiratory status, metabolic acidosis, intubated 08/04. She is currently breathing comfortably on mechanical vent. CXR with slight improvement. CPAP trials ongoing- plan for medical extubation yesterday, was not able to 2/2 tachycardia/anxiety/tachypnea , planned to attempt again today per critical care --Pain-patient appears comfortable at time of exam, currently unable to report pain however potential sources would include: Bedbound status, recent invasive procedure intubation, central line, multiple recent hospitalizations and surgical procedures, KAY to back still in place. She is noted to be on chronic morphine long-acting and short-acting prior to admission and has underwent multiple procedures and hospitalizations recently so likely has some underlying chronic pain. She was initially started on on fentanyl drip --this has been increased to 250 mics/hour. Today she does indicate that she has chronic pain, primarily to her back, baseline pain level is 5 out of 10 which she feels is reasonable. I did explore with her balancing sedation versus pain relief. and unable to increase pending extubation, she understands this. Discussed with nursing, critical care- may need to resume home scheduled long acting pain regimen. critical care will monitor how pt does post extubation. * * She is chronically on morphine extended release 15 mg every 12 hours, as well as morphine 15 mg prn for breakthrough pain; appears she is not opiate salomón may need additional pain regimen as clinical course goes forward. Will continue to evaluate. * Palliative care will continue to follow during hospital course as condition evolves, to assist patient/decision-maker with understanding of medical conditions, weighing benefits/burdens of treatment options, for clarification of goals of treatment. Additionally will assist with any symptoms of palliative concern . (Angelica Barajas) Time Spent Total Floor Time (mins): 20 (Chart review, PE, discussion with family, discussion with nurse, discussion with critical care) (Angelica Barajas) Attestation To help prompt me to consider important information that might be impacting today's encounter and assessment, information from prior notes written by myself or my colleagues may have been "brought forward" into today's note. My signature on this note, however, is an attestation that I personally performed the exam, history, and/or decision-making noted today, and, unless otherwise indicated, the interactions with patient, family, and staff as well as the review of records all occurred today. I also attest that the listed assessment and stated plan reflect my best clinical judgment today based on the combination of historical information, prior notes, and today's exam/ interactions. When time spent is documented, it refers only to time spent today by the signer, or if indicated, combined time spent today by collaborating physician/nurse practitioner. (Angelica Barajas) Collaborating MD Comments Chart reviewed. Case discussed with palliative care [employer] TECHNICIAN. Above note reviewed and I concur. . (Arnulfo Jacques MD) Angelica Barajas August 12, 2017 12:25 Arnulfo Jacques MD Sep 17, 2017 13:07
[2017-08-12] MEDS: FLUCONAZOLE 200 MG PREMIX BAG 100 ML IV SCH (13:55)
[2017-08-12] MEDS: MORPHINE SULFATE ORAL SOLN 10 MG/0.5 ML SYRINGE PO PRN ×2 (15:10→19:30)
[2017-08-12] MEDS: WARFARIN SOD 1 MG TAB PO SCH (15:17)
--- NOTE | 2017-08-12 15:22 | HHI.IDPN ---
Note Infectious Disease Note Patient remains awake. On CPAP. Responding to commands. Afebrile. 76-year-old white female who presented to the Emergency Department from long-term facility with respiratory distress. She was noted to be complaining also of chest discomfort. The patient was intubated and is currently on a ventilator. In the emergency department, the patient had heart rate of 144, temperature 100.9 and respiratory rate of 53. Lactic acid level was 9.4. She was recently diagnosed with acute renal failure at [facility] and was transferred to a long-term facility upon discharge there on 08/02/2017 . Evaluated at [facility] for altered mental status and also acute kidney disease. The patient has a history of recent surgery at [facility] in [place]. She underwent removal of hardware from the lumbosacral spine L1-S1 because of exposed loosened hardware from prior surgery. She reportedly had surgery of the lumbosacral spine 10 years prior. The surgery at [facility] was on 06/27. Intraoperative culture reportedly had MRSA. She was put on antibiotics by infectious disease to complete on 07/29/2017. She was receiving intravenous vancomycin. She was seen by infectious disease physician at [facility] where she was noted to have acute renal failure. 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 PAST MEDICAL HISTORY: 1. L4-S1 fusion. Recent hardware removal. 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 The patient noted to have loosened hardware 2. Atrial fibrillation. 3. COPD, 4. Plasmacytoma, 5. Anemia, 6. Osteoarthritis, 7. Appendectomy, 8. Hysterectomy, 9. Tonsillectomy, 10. Cholecystectomy, 11. Gastroesophageal reflux disease surgery. ALLERGIES: VANCOMYCIN, ALBUTEROL, GABAPENTIN, IPRATROPIUM, IRON, PENICILLIN G, PROCHLORPERAZINE Antibiotics: Aztreonam. Daptomycin. Diflucan. Objective: Vital Signs Date Time Temp Pulse Resp B/P (MAP) Pulse Ox O2 Delivery O2 Flow Rate FiO2 08/12/17 14:00 106 08/12/17 12:56 96 35 08/12/17 12:00 35 08/12/17 12:00 109 08/12/17 12:00 98.6 111 16 165/79 (107) 98 08/12/17 11:45 99 35 08/12/17 11:45 35 08/12/17 11:37 99 35 08/12/17 10:55 35 08/12/17 10:55 100 35 08/12/17 10:11 99 35 08/12/17 10:00 90 08/12/17 08:00 96.9 84 12 160/80 (106) 98 08/12/17 08:00 35 08/12/17 08:00 84 08/12/17 07:32 100 35 08/12/17 06:00 76 08/12/17 04:14 99 35 08/12/17 04:00 69 08/12/17 04:00 98.9 68 16 144/71 (95) 98 08/12/17 04:00 35 08/12/17 02:00 61 08/12/17 01:13 99 35 08/12/17 00:00 98.7 61 18 128/64 (85) 97 08/12/17 00:00 35 08/12/17 00:00 64 08/11/17 22:40 98 35 08/11/17 22:00 55 08/11/17 20:00 98.4 79 20 143/75 (97) 97 08/11/17 20:00 85 08/11/17 20:00 35 08/11/17 19:57 98 35 08/11/17 18:00 94 08/11/17 16:18 35 08/11/17 16:04 93 35 08/11/17 16:00 99.0 79 17 156/74 (101) 93 08/11/17 16:00 35 08/11/17 16:00 79 Laboratory Tests Test 08/11/17 05:09 08/12/17 05:44 White Blood Count 10.2 TH/MM3 8.3 TH/MM3 Red Blood Count 2.84 MIL/MM3 2.77 MIL/MM3 Hemoglobin 9.1 GM/DL 9.1 GM/DL Hematocrit 27.7 % 26.8 % Mean Corpuscular Volume 97.4 FL 96.9 FL Mean Corpuscular Hemoglobin 32.0 PG 32.9 PG Mean Corpuscular Hemoglobin Concent 32.8 % 33.9 % Red Cell Distribution Width 18.0 % 18.0 % Platelet Count 183 TH/MM3 179 TH/MM3 Mean Platelet Volume 8.5 FL 8.3 FL Neutrophils (%) (Auto) 93.6 % 89.6 % Lymphocytes (%) (Auto) 1.6 % 3.2 % Monocytes (%) (Auto) 4.7 % 6.9 % Eosinophils (%) (Auto) 0.0 % 0.2 % Basophils (%) (Auto) 0.1 % 0.1 % Neutrophils # (Auto) 9.6 TH/MM3 7.4 TH/MM3 Lymphocytes # (Auto) 0.2 TH/MM3 0.3 TH/MM3 Monocytes # (Auto) 0.5 TH/MM3 0.6 TH/MM3 Eosinophils # (Auto) 0.0 TH/MM3 0.0 TH/MM3 Basophils # (Auto) 0.0 TH/MM3 0.0 TH/MM3 CBC Comment DIFF FINAL DIFF FINAL Differential Comment Laboratory Tests Test 08/11/17 05:09 08/11/17 18:20 08/12/17 05:44 Blood Urea Nitrogen 70 MG/DL 68 MG/DL Creatinine 2.32 MG/DL 1.98 MG/DL Random Glucose 142 MG/DL 134 MG/DL Total Protein 7.2 GM/DL 7.3 GM/DL Albumin 2.1 GM/DL 2.5 GM/DL Calcium Level 7.6 MG/DL 7.7 MG/DL Phosphorus Level 4.0 MG/DL 3.4 MG/DL Magnesium Level 2.0 MG/DL 1.8 MG/DL Alkaline Phosphatase 145 U/L 145 U/L Aspartate Amino Transf (AST/SGOT) 40 U/L 36 U/L Alanine Aminotransferase (ALT/SGPT) 236 U/L 174 U/L Total Bilirubin 0.7 MG/DL 0.9 MG/DL Sodium Level 141 MEQ/L 141 MEQ/L Potassium Level 3.4 MEQ/L 3.6 MEQ/L 3.5 MEQ/L Chloride Level 104 MEQ/L 102 MEQ/L Carbon Dioxide Level 25.9 MEQ/L 27.5 MEQ/L Anion Gap 11 MEQ/L 12 MEQ/L Estimat Glomerular Filtration Rate 20 ML/MIN 25 ML/MIN Imaging: Chest X-Ray 08/11/17 0600 Signed Impressions: Service Date/Time: August 03:16 - CONCLUSION: Mild interval improvement in bilateral airspace disease with significant residual. Epifanio Sweeney MD Chest X-Ray 08/09/17 0000 Signed Impressions: Service Date/Time: Wednesday, August 09, 2017 11:34 - CONCLUSION: 1. Bilateral airspace disease with possibly some improving aeration in the lung bases. 2. Stable cardiomegaly. Stable position of life support tubes. 3. Stable calcifications overlying the soft tissues of the shoulders symmetrically and bilaterally. Findings are nonspecific and can represent entities such as dystrophic soft tissue calcifications, idiopathic tumoral calcinosis myositis ossificans as well as scleroderma and dermatomyositis. Findings are overtly benign, however Rogelio Santos MD Chest X-Ray 08/05/17 0600 Signed Impressions: Service Date/Time: Saturday, August 05, 2017 04:54 - CONCLUSION: Normal placement of nasogastric tube. Grossly stable aeration Sterling Aguilar MD Lumbar Spine CT 08/04/17 0000 Signed Impressions: Service Date/Time: August 13:46 - CONCLUSION: 1. There is low density in the soft tissues at the recent laminectomy site L4-L5 measuring up to 2.4 cm in thickness with out deformity of the posterior thecal sac at the laminectomy site. 2. Stable anterolisthesis at L5-S1 with bony fusion. 3. 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 Maykel Singh MD Abdomen/Pelvis CT 08/04/17 0000 Signed Impressions: Service Date/Time: August 13:46 - CONCLUSION: 1. There is stool diffusely throughout the colon suggesting constipation. 2. The solid organs of the abdomen are grossly intact. 3. No free air free fluid seen within the abdomen. No abscess is identified. 4. Small amount of free fluid within the abdomen. 5. Bilateral pleural effusions and consolidation. 6. Cardiomegaly. 7. 2 mm nonobstructing stone in the lower pole collecting system of the right kidney. 8. Anasarca. Mil Toro MD Abdomen Fluoroscopy 08/04/17 0000 Signed Impressions: Service Date/Time: August 17:00 - CONCLUSION: Uncomplicated nasoenteric suction type catheter (NGT) placement as above. Librado Hernandez MD PHYSICAL EXAMINATION: GENERAL: Awake and alert. HEENT: Extraocular movements appear intact. No icterus. Oropharynx intubated. Mucosa appears moist. NECK: No swelling or adenopathy. LUNGS: Rhonchi and mild rales at the bases. HEART: Irregular S1 and S2. No audible murmurs, rubs or gallops. ABDOMEN: Slightly distended, soft, decreased bowel sounds. BACK: KAY drainage catheter in place. EXTREMITIES: No clubbing, cyanosis. Edema of the upper extremities. SKIN: No rash. NEUROLOGIC: Unable to fully assess. PSYCHIATRIC: Unable to fully assess. IMPRESSION: 1. Septic shock. Improved. 2. Acute hypercapnic respiratory failure. 3. Acute renal failure. Improving 4. Shock liver, probably from sepsis. LFTs improving. 5. Lung infiltrate. Improved on last chest x-ray. 6. Osteomyelitis of the lumbar spine. Patient was placed on IV antibiotics By ID at [facility]. The patient is status post hardware removal from the lumbar spine and noted to have methicillin-resistant Staph aureus on culture. She received a course of IV vancomycin which was completed on 07/29/2017. Subsequently, she was started on daptomycin for chronic infection with plan to treat the patient for 6 weeks after discharge from [facility] on 08/02. Has drain in place at the lumbar spine. She was due to have an appointment at [facility] in [place] later this month to assess the lumbar wound and possibly remove the lumbar drainage catheter. 6. Candiduria. RECOMMENDATIONS: 1. Continue the Daptomycin at q 48 hour interval. 2. Continue Azactam. 3. Continue Diflucan. 4. Monitor the clinical status. Dion Wing MD August 12, 2017 15:22
[2017-08-12] MEDS: CYCLOBENZAPRINE HCL 10 MG TAB PO PRN (20:57)
[2017-08-13] VITALS (20 sets, daily range): BP systolic 109–187; BP diastolic 56–86; PULSE 80–119; RESP 15–26; TEMP 98–98.7; O2SAT 97–99
[2017-08-13] MEDS: MORPHINE SULFATE ORAL SOLN 10 MG/0.5 ML SYRINGE PO PRN ×3 (00:41→21:09)
[2017-08-13] MEDS: hydrALAZINE HCL 20 MG/ML VIAL IV PUSH PRN (01:41)
[2017-08-13] MEDS: SODIUM CHLORIDE 0.9% FLUSH 10 ML FLUSH IV FLUSH PRN (01:41)
[2017-08-13] MEDS: LABETALOL HCL 100 MG/20 ML VIAL IV PUSH PRN ×2 (01:41→09:57)
[2017-08-13] MEDS: RESP: IPRATROPIUM 0.5 MG/2.5 ML NEB NEB SCH ×3 (03:42→20:58)
[2017-08-13] MEDS: AZTREONAM INJ 1,000 MG in SODIUM CHLORIDE 0.9% INJ 100 ML IV SCH ×2 (03:57→16:29)
[2017-08-13] MEDS: CHLORHEXIDINE GLUCONATE 2 % 1 PACK (2 CLOTHS) TOP SCH (03:58)
[2017-08-13] MEDS: ARTIFICIAL TEARS OPTH SOLN 15 ML BTL EACH EYE SCH ×3 (04:50→21:09)
[2017-08-13] MEDS: SODIUM CHLORIDE 0.9% FLUSH 10 ML FLUSH IV FLUSH SCH ×5 (04:51→21:10)
[2017-08-13] MEDS: DILTIAZEM HCL 60 MG TAB PO SCH ×3 (04:51→21:08)
--- NOTE | 2017-08-13 06:15 | RADRPT ---
EXAM DATE/TIME: 08/13/2017 06:13 [place] COMPARISON: CHEST SINGLE AP, August 11, 2017, 3:16. INDICATIONS : Shortness of breath, sepsis. MEDICAL HISTORY : Cardiovascular disease. Gastroesophageal reflux disease. Sepsis. SURGICAL HISTORY : Appendectomy. Hysterectomy. ENCOUNTER: Subsequent ACUITY: 1 week PAIN SCORE: Non-responsive. LOCATION: Bilateral chest FINDINGS: 2 AP erect views of the chest were obtained and again demonstrate the endotracheal tube in place with the tip approximately 3 cm above the paulo. The nasogastric tube remains in place with the tip in t he stomach. Coarse opacity is again noted in the right lung. There is milder opacity in the left lung . This does not appear significantly changed. The heart size remains moderately enlarged. The bony th orax is stable. The head is flexed obscuring the left lung apex. CONCLUSION: No significant change. Epifanio Sweeney MD on August 13, 2017 at 6:13 Board Certified Radiologist. This report was verified electronically.
[2017-08-13] MEDS: fentaNYL DRIP 250 ML IV PRN (06:20)
[2017-08-13 07:27] LABS: AUTOMATED NEUTROPHIL # 9.4 TH/MM3 (1.8-7.7); BASOPHIL % 0.1 % (0.0-2.0); EOSINOPHIL # 0.5 TH/MM3 (0-0.4); EOSINOPHIL % 4.5 % (0.0-4.0); HEMATOCRIT 26.4 % (35.0-46.0); LYMPHOCYTE # 0.3 TH/MM3 (1.0-4.8); MEAN CELL VOLUME 95.8 FL (80.0-100.0); MEAN CORPUSCULAR HEMOGLOBIN 32.5 PG (27.0-34.0); MEAN PLATELET VOLUME 8.6 FL (7.0-11.0); MONO % 3.6 % (0.0-8.0); MONOCYTE # 0.4 TH/MM3 (0-0.9); NEUT % 88.8 % (16.0-70.0); PLATELET COUNT 211 TH/MM3 (150-450); RED BLOOD COUNT 2.76 MIL/MM3 (4.00-5.30); WHITE BLOOD COUNT 10.6 TH/MM3 (4.0-11.0)
[2017-08-13 07:37] LABS: INTERNATIONAL NORMALIZED RATIO 1.8 RATIO; PROTHROMBIN TIME - PATIENT 18.3 SEC (9.8-11.6)
[2017-08-13] MEDS: CHLORHEXIDINE 0.12% (ORAL KIT) 15 ML CUP MT SCH ×2 (07:40→20:00)
[2017-08-13] MEDS: FAMOTIDINE 20 MG TAB PO SCH ×2 (07:41→21:08)
[2017-08-13] MEDS: LACTULOSE SYRUP 20 GM/30 ML CUP PO SCH ×2 (07:41→21:00)
[2017-08-13] MEDS: DOCUSATE SODIUM 50 MG/SENNA 8.6 MG TAB PO SCH ×2 (07:42→21:07)
[2017-08-13] MEDS: ZINC SULFATE 220 MG CAP PO SCH (07:42)
[2017-08-13] MEDS: ASCORBIC ACID 500 MG TAB PO SCH (07:42)
[2017-08-13 07:57] LABS: ALBUMIN 2.6 GM/DL (3.4-5.0); AST (GOT) 33 U/L (15-37); BICARBONATE 27.4 MEQ/L (21.0-32.0); BLOOD UREA NITROGEN 66 MG/DL (7-18); CALCIUM 8.2 MG/DL (8.5-10.1); CHLORIDE 101 MEQ/L (98-107); CREATININE 1.72 MG/DL (0.50-1.00); GLOMERULAR FILTRATION RATE 29 ML/MIN (>89); GLUCOSE,RANDOM 119 MG/DL (74-106); MAGNESIUM 1.7 MG/DL (1.5-2.5); SODIUM (NA) 140 MEQ/L (136-145)
[2017-08-13 07:58] LABS: ALT (GPT) 129 U/L (10-53); PHOSPHORUS 2.9 MG/DL (2.5-4.9)
[2017-08-13 08:00] LABS: ALKALINE PHOSPHATASE 128 U/L (45-117); TOTAL BILIRUBIN ADULT 1.2 MG/DL (0.2-1.0); TOTAL PROTEIN 7.2 GM/DL (6.4-8.2)
[2017-08-13] MEDS: MUPIROCIN 2% OINT 1 APPLIC/GM SYR EACH NARE SCH ×2 (08:51→21:08)
--- NOTE | 2017-08-13 10:42 | HHI.CCPN ---
Subjective Remarks/Hospital Course 76-year-old female resident of the detention presents with complaints of respiratory difficulty. Onset was today. She is also complaining with some chest discomfort. She denies productive cough. Her symptoms are moderate to severe with no exacerbating factors. This patient was reportedly just discharged from [facility] with discitis secondary to MRSA. 53: Afebrile. Early this a.m. patient still having respiratory difficulty noted metabolic acidosis with a bicarb level 13, sodium bicarbonate infusion continues. She noticed to have respiratory distress ABGs performed. Impending intubation 7.10. Patient noted to have KAY drain emanating from back with dressing taken down no area redness yellow fluid and KAY drain sent for wound culture analysis. Upon further investigation patient's brother at bedside patient had lumbar hardware removed from [facility] in [place] approximately 6 weeks ago secondary to hardware eroding through the back and could be visualized on site. 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 Gottlieb cultures are pending. Attempts at medical record release forms from [facility] are pending. Patient previously last week at [facility] for acute kidney injury/urinary tract infection, attempting to obtain medical record. Patient was discharged approximately 2-3 days ago per report. This a.m. patient went into A. fib RVR with a heart rate in the 150s patient was given metoprolol 2 doses heart rate 112, patient is known to have chronic atrial fibrillation previously on Cardizem and digoxin 0.125 IV 1 dose Cardizem reinitiated. Discussion with patient regarding intubation and patient' s brother at bedside patient desires aggressive measures be undertaken patient requests intubation if needed and to remain a full code. Noted open areas skin wound areas on the lower extremities well-healed skin graft site left thigh wound care has been consulted. Palliative care also has been consulted to define goals of care. 08/05: Patient noted with elevated INR, Coumadin has been discontinued for 2 days. Vitamin K ordered. No active signs of bleeding. Patient on sedation vacation following commands. Afib rate controlled 70's-80's since addition to p.o. Cardizem. 6: Patient is currently on PSV trial FiO2 35%. Minimal secretions. Tolerating tube feeds. No bowel movement yesterday. Follows commands. 08/08: Temperature currently 98.8. Adequate weaning parameters however no cough leak. We will give dexamethasone 1 day and recheck cuff leak in a.m. Awake and follows commands. Transaminases normalized. Creatinine continues to slowly rise. 08/09: No events overnight. Patient is lethargic, easily arousable, tolerating CPAP at 10/5. T-max of 99.9. Still no cuff leak. Urine output is appropriate , with 3650 mL's over the last 24 hours. No family present at bedside. 08/10: No events over the night. Patient is awake, complaining of back pain, on fentanyl at 150 mics/hr. Tolerating CPAP 15/5. Afebrile over the night, with a T-max of 98.8. Negative fluid balance over the last 24 hours, -500 cc. 08/11: Patient remains intubated and sedated. She did well over the night. T- max of 98.6. She continues to be on fentanyl drip for back pain, asleep, easily arousable, follows commands. 08/12: No events over the night. Patient remains intubated, on fentanyl drip, easily arousable, following commands. Great response to diuretics, more than 3600 mL's urine output. Patient tolerated CPAP well yesterday but after being cleaned she developed tachycardia and tachypnea requiring full support. T-max of 99.3. 08/13: No events over the night. T-max of 98.6. She responded great to diuresis post Lasix, negative more than 3.3 L over the last 24 hours. She remains on fentanyl drip, lethargic, easily arousable. Oxygenation is unchanged. Chest x-ray reviewed, ET tube is in good position, 3 cm above paulo , unchanged bilateral opacities. Objective Vital Signs Date Time Temp Pulse Resp B/P (MAP) Pulse Ox O2 Delivery O2 Flow Rate FiO2 08/13/17 10:00 90 08/13/17 08:36 97 35 08/13/17 08:00 98.0 18 146/67 (93) 08/12/17 20:43 Ventilator Intake and Output 08/13/17 08/13/17 08/14/17 08:00 16:00 00:00 Intake Total 880 ml Output Total 1940 ml Balance -1060 ml Result Diagram: 08/13/17 0609 08/13/17 06 Imaging Last 24 hours Impressions Chest X-Ray 08/11/17599 Signed Impressions: Service Date/Time: August 03:16 - CONCLUSION: Mild interval improvement in bilateral airspace disease with significant residual. Epifanio Sweeney MD Last Impressions Chest X-Ray 08/08/17599 Signed Impressions: Service Date/Time: Tuesday, August 08, 2017 04:32 - CONCLUSION: Significant consolidation throughout both lungs. Cardiomegaly and pleural effusions persist.. Joseph Toro MD Lumbar Spine CT 08/04/17 0000 Signed Impressions: Service Date/Time: August 13:46 - CONCLUSION: 1. There is low density in the soft tissues at the recent laminectomy site L4-L5 measuring up to 2.4 cm in thickness with out deformity of the posterior thecal sac at the laminectomy site. 2. Stable anterolisthesis at L5-S1 with bony fusion. 3. 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 Maykel Singh MD Abdomen/Pelvis CT 08/04/17 0000 Signed Impressions: Service Date/Time: August 13:46 - CONCLUSION: 1. There is stool diffusely throughout the colon suggesting constipation. 2. The solid organs of the abdomen are grossly intact. 3. No free air free fluid seen within the abdomen. No abscess is identified. 4. Small amount of free fluid within the abdomen. 5. Bilateral pleural effusions and consolidation. 6. Cardiomegaly. 7. 2 mm nonobstructing stone in the lower pole collecting system of the right kidney. 8. Anasarca. Mil Toro MD Abdomen Fluoroscopy 08/04/17 0000 Signed Impressions: Service Date/Time: August 17:00 - CONCLUSION: Uncomplicated nasoenteric suction type catheter (NGT) placement as above. Librado Hernandez MD Procedures 08/04 -placement of NG tube IR Objective Remarks General - elderly lady, intubated, sleeping, easily arousable, ill-appearing HEENT - pupils equal, reactive, sclerae anicteric, + kyphosis, unable to appreciate JVD, orally intubated, + NGT CV - regular s1 and s2, no murmurs Chest - still with coarse breath sounds b/l, decreased air entry at bases, no wheezes Abdomen - soft, not distended, non-tender, BS present Extremities - 2 + edema over both upper and 1+ lower extremities, improved, + peripheral pulses Neuro - intubated and sedated, easily arousable, follows commands, moves all extremities but she remains weak Date of Insertion: August 04, 2017 A/P Problem List: (1) Afib ICD Code: I48.91 - Unspecified atrial fibrillation Status: Acute (2) EMIR (acute kidney injury) ICD Code: N17.9 - Acute kidney failure, unspecified Status: Acute (3) CKD (chronic kidney disease) stage 4, GFR 15-29 ml/min ICD Code: N18.4 - Chronic kidney disease, stage 4 (severe) Status: Acute (4) Renal insufficiency ICD Code: N28.9 - Disorder of kidney and ureter, unspecified Status: Acute (5) Chronic pain ICD Code: G89.29 - Other chronic pain Status: Acute (6) Atrial fibrillation with RVR ICD Code: I48.91 - Unspecified atrial fibrillation Status: Acute (7) Hyperkalemia ICD Code: E87.5 - Hyperkalemia Status: Acute (8) Severe sepsis ICD Code: A41.9 - Sepsis, unspecified organism; R65.20 - Severe sepsis without septic shock (9) Metabolic acidosis ICD Code: E87.2 - Acidosis Status: Acute (10) Hypoglycemia ICD Code: E16.2 - Hypoglycemia, unspecified Status: Acute (11) Cardiomegaly ICD Code: I51.7 - Cardiomegaly Status: Acute Assessment and Plan Neuro/Psych: Chronic pain syndrome Status post removal of lumbar/sacral L5/S1 hardware 06/19 Chronic opioid use Patient is currently on a fentanyl drip for sedation/analgesia while intubated Goal of RASS -1 Neuro checks per ICU protocol Daily sedation vacation Acetaminophen 650 mg every 6 hours as needed for temperature greater than 101.5 Cyclobenzaprine 10 mg 3 times daily as needed muscle relaxant Morphine sulfate 15 mg every 4 hours as needed pain currently being held Respiratory: Acute hypercapnic respiratory failure -improving Mild pulmonary hypertension COPD/asthma Currently on PRVC, PIP of 25, patient synchronized with event, no auto PEEP CPAP trial again today Check for cuff leak Ventilator bundle Ipratropium aerosols every 6 hours Albuterol allergy When clinically indicated resume nasal fluticasone home medication Completed 48 hours of dexamethasone Cardiovascular: A. fib RVR-resolved History of essential hypertension Chronic systolic congestive heart failure Chronic atrial fibrillation Cardizem 60 mg every 8 hours, since home medicines include Cardizem CD 08/05 Echo- The left ventricular systolic function is moderately reduced with an estimated ejection fraction in the range of 40-45%. Dyskinetic apical cap wall motion. The right ventricle is moderately dilated. Moderate mitral valve regurgitation. Aortic valve sclerosis is present. There is mild to moderate tricuspid valve regurgitation. There is estimated mild pulmonary hypertension present (range 40-50 mmHg). Gradually restart home medication as below Home medications include isosorbide dinitrate 30 mg daily, metoprolol succinate 50 mg daily lisinopril 2.5 mg daily. These are currently on hold On Coumadin per pharmacy Renal: Acute renal insufficiency incentive chronic kidney disease stage IV Right renal stone/no hydronephrosis Great response to diuresis yesterday Creatinine gradually coming down Maintain Simpson -- Strict I/Os FEN/GI: Continue tube feeds 08/05 -difficult NG tube placement, placed by IR Famotidine 10 mg twice daily for GI prophylaxis. Docusate sodium/senna 1 tablet twice daily, lactulose 30 cc twice daily for bowel regimen Replete potassium Heme/ID: Anemia of chronic disease Thrombocytopenia Leukocytosis MRSA Discitis Chronic warfarin use Funguria Continue Atrezonam, daptomycin, fluconazole. Infectious disease consult following Follow-up blood and urine cultures Coumadin per pharmacy Medical records release obtained for medical records at [facility] [facility] The patient has a history of recent surgery at [facility] in [place]. She underwent removal of hardware from the lumbosacral spine L1-S1 because of exposed loosened hardware from prior surgery. She reportedly had surgery of the lumbosacral spine 10 years prior. The surgery at [facility] was on 06/27. Intraoperative culture reportedly had MRSA. She was put on antibiotics by infectious disease to complete on 07/29/2017. She was receiving intravenous vancomycin. The patient completed the course of the vancomycin. There is a notation in the medical record that she is ALLERGIC TO VANCOMYCIN. She is currently on daptomycin. She continues with a drainage catheter in the lumbosacral region from prior surgery. She was seen by infectious disease physician at [facility] and reportedly will be in need of IV antibiotics for 6 weeks because of osteomyelitis of the lumbar spine. 08/06 UTI -Denise-fluconazole 200mg/d 08/04- Blood Cultures -NGTD Endocrine: Hypoglycemia-resolved Glucose monitoring per ICU protocol -- SSI Prophylaxis: GI Prophylaxis Famotidine BID DVT Prophylaxis -- SCDs -- INR therapeutic Lines: PICC line Level 2 follow-up No family present at bedside. Marcos Ley MD August 13, 2017 10:42
[2017-08-13] MEDS: POTASSIUM CHLOR 20 MEQ PREMIX 100 ML IV SCH ×2 (11:22→14:09)
[2017-08-13] MEDS: METOPROLOL TARTRATE 5 MG/5 ML VIAL IV PUSH PRN (12:49)
[2017-08-13] MEDS ORDERED: PILL SPLITTER OTHER PRN (14:15)
[2017-08-13] MEDS: FLUCONAZOLE 200 MG PREMIX BAG 100 ML IV SCH (15:23)
[2017-08-13] MEDS: WARFARIN SOD 1 MG TAB PO SCH (15:24)
[2017-08-13] MEDS ORDERED: WARFARIN SOD 1 MG TAB PO ONE (16:00)
[2017-08-14] VITALS (25 sets, daily range): BP systolic 113–179; BP diastolic 55–109; PULSE 82–120; RESP 16–33; TEMP 98.1–99.7; O2SAT 85–100
[2017-08-14] MEDS: fentaNYL DRIP 250 ML IV PRN ×2 (00:10→10:30)
[2017-08-14] MEDS: CYCLOBENZAPRINE HCL 10 MG TAB PO PRN ×2 (03:08→10:35)
[2017-08-14] MEDS: CHLORHEXIDINE GLUCONATE 2 % 1 PACK (2 CLOTHS) TOP SCH (04:00)
[2017-08-14] MEDS: RESP: IPRATROPIUM 0.5 MG/2.5 ML NEB NEB SCH ×3 (04:10→20:28)
[2017-08-14 04:24] LABS: AUTOMATED NEUTROPHIL # 8.5 TH/MM3 (1.8-7.7); BASOPHIL % 0.2 % (0.0-2.0); EOSINOPHIL # 0.6 TH/MM3 (0-0.4); EOSINOPHIL % 5.9 % (0.0-4.0); HEMATOCRIT 24.3 % (35.0-46.0); HEMOGLOBIN 8.3 GM/DL (11.6-15.3); LYMPH % 3.8 % (9.0-44.0); LYMPHOCYTE # 0.4 TH/MM3 (1.0-4.8); MEAN CELL VOLUME 96.3 FL (80.0-100.0); MEAN CORPUSCULAR HEMOGLOBIN 32.8 PG (27.0-34.0); MEAN CORPUSCULAR HGB CONC 34.1 % (32.0-36.0); MEAN PLATELET VOLUME 8.4 FL (7.0-11.0); MONO % 2.9 % (0.0-8.0); MONOCYTE # 0.3 TH/MM3 (0-0.9); NEUT % 87.2 % (16.0-70.0); PLATELET COUNT 209 TH/MM3 (150-450); RED BLOOD COUNT 2.53 MIL/MM3 (4.00-5.30); RED CELL DISTRIBUTION WIDTH 17.6 % (11.6-17.2); WHITE BLOOD COUNT 9.8 TH/MM3 (4.0-11.0)
[2017-08-14 04:33] LABS: INTERNATIONAL NORMALIZED RATIO 1.7 RATIO; PROTHROMBIN TIME - PATIENT 17.2 SEC (9.8-11.6)
[2017-08-14 04:55] LABS: ALBUMIN 2.1 GM/DL (3.4-5.0); ALKALINE PHOSPHATASE 105 U/L (45-117); ALT (GPT) 94 U/L (10-53); AST (GOT) 31 U/L (15-37); BICARBONATE 28.2 MEQ/L (21.0-32.0); BLOOD UREA NITROGEN 54 MG/DL (7-18); CALCIUM 7.8 MG/DL (8.5-10.1); CHLORIDE 104 MEQ/L (98-107); CREATININE 1.44 MG/DL (0.50-1.00); GLOMERULAR FILTRATION RATE 35 ML/MIN (>89); GLUCOSE,RANDOM 117 MG/DL (74-106); MAGNESIUM 1.5 MG/DL (1.5-2.5); PHOSPHORUS 2.5 MG/DL (2.5-4.9); SODIUM (NA) 141 MEQ/L (136-145); TOTAL PROTEIN 6.7 GM/DL (6.4-8.2)
[2017-08-14] MEDS: DILTIAZEM HCL 60 MG TAB PO SCH ×3 (05:02→22:00)
[2017-08-14] MEDS: AZTREONAM INJ 1,000 MG in SODIUM CHLORIDE 0.9% INJ 100 ML IV SCH ×2 (05:02→18:18)
[2017-08-14] MEDS: ARTIFICIAL TEARS OPTH SOLN 15 ML BTL EACH EYE SCH ×3 (08:49→23:30)
[2017-08-14] MEDS: CHLORHEXIDINE 0.12% (ORAL KIT) 15 ML CUP MT SCH ×2 (08:49→20:00)
[2017-08-14] MEDS: SODIUM CHLORIDE 0.9% FLUSH 10 ML FLUSH IV FLUSH SCH ×5 (08:49→23:31)
[2017-08-14] MEDS: MORPHINE SULFATE ORAL SOLN 10 MG/0.5 ML SYRINGE PO PRN (10:33)
[2017-08-14] MEDS: ASCORBIC ACID 500 MG TAB PO SCH (10:35)
[2017-08-14] MEDS: LACTULOSE SYRUP 20 GM/30 ML CUP PO SCH ×2 (10:35→21:00)
[2017-08-14] MEDS: ZINC SULFATE 220 MG CAP PO SCH (10:35)
[2017-08-14] MEDS: DOCUSATE SODIUM 50 MG/SENNA 8.6 MG TAB PO SCH ×2 (10:35→21:00)
[2017-08-14] MEDS: MUPIROCIN 2% OINT 1 APPLIC/GM SYR EACH NARE SCH ×2 (10:35→21:00)
[2017-08-14] MEDS: FAMOTIDINE 20 MG TAB PO SCH ×2 (10:36→21:00)
--- NOTE | 2017-08-14 12:22 | HHI.CCPN ---
Subjective Remarks/Hospital Course 76-year-old female resident of the snf presents with complaints of respiratory difficulty. Onset was today. She is also complaining with some chest discomfort. She denies productive cough. Her symptoms are moderate to severe with no exacerbating factors. This patient was reportedly just discharged from [facility] with discitis secondary to MRSA. 53: Afebrile. Early this a.m. patient still having respiratory difficulty noted metabolic acidosis with a bicarb level 13, sodium bicarbonate infusion continues. She noticed to have respiratory distress ABGs performed. Impending intubation 7.10. Patient noted to have KAY drain emanating from back with dressing taken down no area redness yellow fluid and KAY drain sent for wound culture analysis. Upon further investigation patient's brother at bedside patient had lumbar hardware removed from [facility] in [place] approximately 6 weeks ago secondary to hardware eroding through the back and could be visualized on site. 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 Gottlieb cultures are pending. Attempts at medical record release forms from [facility] are pending. Patient previously last week at [facility] for acute kidney injury/urinary tract infection, attempting to obtain medical record. Patient was discharged approximately 2-3 days ago per report. This a.m. patient went into A. fib RVR with a heart rate in the 150s patient was given metoprolol 2 doses heart rate 112, patient is known to have chronic atrial fibrillation previously on Cardizem and digoxin 0.125 IV 1 dose Cardizem reinitiated. Discussion with patient regarding intubation and patient' s brother at bedside patient desires aggressive measures be undertaken patient requests intubation if needed and to remain a full code. Noted open areas skin wound areas on the lower extremities well-healed skin graft site left thigh wound care has been consulted. Palliative care also has been consulted to define goals of care. 08/05: Patient noted with elevated INR, Coumadin has been discontinued for 2 days. Vitamin K ordered. No active signs of bleeding. Patient on sedation vacation following commands. Afib rate controlled 70's-80's since addition to p.o. Cardizem. 6: Patient is currently on PSV trial FiO2 35%. Minimal secretions. Tolerating tube feeds. No bowel movement yesterday. Follows commands. 08/08: Temperature currently 98.8. Adequate weaning parameters however no cough leak. We will give dexamethasone 1 day and recheck cuff leak in a.m. Awake and follows commands. Transaminases normalized. Creatinine continues to slowly rise. 08/09: No events overnight. Patient is lethargic, easily arousable, tolerating CPAP at 10/5. T-max of 99.9. Still no cuff leak. Urine output is appropriate , with 3650 mL's over the last 24 hours. No family present at bedside. 08/10: No events over the night. Patient is awake, complaining of back pain, on fentanyl at 150 mics/hr. Tolerating CPAP 15/5. Afebrile over the night, with a T-max of 98.8. Negative fluid balance over the last 24 hours, -500 cc. 08/11: Patient remains intubated and sedated. She did well over the night. T- max of 98.6. She continues to be on fentanyl drip for back pain, asleep, easily arousable, follows commands. 08/12: No events over the night. Patient remains intubated, on fentanyl drip, easily arousable, following commands. Great response to diuretics, more than 3600 mL's urine output. Patient tolerated CPAP well yesterday but after being cleaned she developed tachycardia and tachypnea requiring full support. T-max of 99.3. 08/13: No events over the night. T-max of 98.6. She responded great to diuresis post Lasix, negative more than 3.3 L over the last 24 hours. She remains on fentanyl drip, lethargic, easily arousable. Oxygenation is unchanged. Chest x-ray reviewed, ET tube is in good position, 3 cm above paulo , unchanged bilateral opacities. 08/14: Patient remains intubated, on fentanyl infusion at 250 mcg/hour. T-max of 99.7. Negative almost 1 L over last 24 hours. Being but easily arousable, denies any complaints. On CPAP 12/5 tolerating well. Objective Vital Signs Date Time Temp Pulse Resp B/P (MAP) Pulse Ox O2 Delivery O2 Flow Rate FiO2 08/14/17 11:57 92 35 08/14/17 08:00 99.7 84 25 126/58 (80) 08/12/17 20:43 Ventilator Intake and Output 08/14/17 08/14/17 08/15/17 08:00 16:00 00:00 Intake Total 736 ml Output Total 880 ml Balance -144 ml Result Diagram: 08/14/17 0350 08/14/17 0350 Imaging Last 24 hours Impressions Chest X-Ray 08/11/17 0600 Signed Impressions: Service Date/Time: August 03:16 - CONCLUSION: Mild interval improvement in bilateral airspace disease with significant residual. Epifanio Sweeney MD Last Impressions Chest X-Ray 08/08/17 0600 Signed Impressions: Service Date/Time: Tuesday, August 08, 2017 04:32 - CONCLUSION: Significant consolidation throughout both lungs. Cardiomegaly and pleural effusions persist.. Joseph Toro MD Lumbar Spine CT 08/04/17 0000 Signed Impressions: Service Date/Time: August 13:46 - CONCLUSION: 1. There is low density in the soft tissues at the recent laminectomy site L4-L5 measuring up to 2.4 cm in thickness with out deformity of the posterior thecal sac at the laminectomy site. 2. Stable anterolisthesis at L5-S1 with bony fusion. 3. 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 Maykel Singh MD Abdomen/Pelvis CT 08/04/17 0000 Signed Impressions: Service Date/Time: August 13:46 - CONCLUSION: 1. There is stool diffusely throughout the colon suggesting constipation. 2. The solid organs of the abdomen are grossly intact. 3. No free air free fluid seen within the abdomen. No abscess is identified. 4. Small amount of free fluid within the abdomen. 5. Bilateral pleural effusions and consolidation. 6. Cardiomegaly. 7. 2 mm nonobstructing stone in the lower pole collecting system of the right kidney. 8. Anasarca. Mil Toro MD Abdomen Fluoroscopy 08/04/17 0000 Signed Impressions: Service Date/Time: August 17:00 - CONCLUSION: Uncomplicated nasoenteric suction type catheter (NGT) placement as above. Librado Hernandez MD Procedures 5/3 -placement of NG tube IR Objective Remarks General - elderly lady, intubated, sleeping, easily arousable, ill-appearing HEENT - pupils are equal, and reactive, sclerae are anicteric, + kyphosis, unable to appreciate neck vein distention due to body habitus, orally intubated , + NGT CV - regular heart sounds, no murmurs Chest - still with coarse breath sounds b/l but improved, decreased air entry at bases, no wheezes Abdomen - soft, not distended, non-tender, BS present Extremities - 2 + edema over both upper and 1+ lower extremities, improved, + peripheral pulses Neuro - intubated and sedated, easily arousable, follows commands, moves all extremities but she remains weak Date of Insertion: August 04, 2017 A/P Problem List: (1) Afib ICD Code: I48.91 - Unspecified atrial fibrillation Status: Acute (2) EMIR (acute kidney injury) ICD Code: N17.9 - Acute kidney failure, unspecified Status: Acute (3) CKD (chronic kidney disease) stage 4, GFR 15-29 ml/min ICD Code: N18.4 - Chronic kidney disease, stage 4 (severe) Status: Acute (4) Renal insufficiency ICD Code: N28.9 - Disorder of kidney and ureter, unspecified Status: Acute (5) Chronic pain ICD Code: G89.29 - Other chronic pain Status: Acute (6) Atrial fibrillation with RVR ICD Code: I48.91 - Unspecified atrial fibrillation Status: Acute (7) Hyperkalemia ICD Code: E87.5 - Hyperkalemia Status: Acute (8) Severe sepsis ICD Code: A41.9 - Sepsis, unspecified organism; R65.20 - Severe sepsis without septic shock (9) Metabolic acidosis ICD Code: E87.2 - Acidosis Status: Acute (10) Hypoglycemia ICD Code: E16.2 - Hypoglycemia, unspecified Status: Acute (11) Cardiomegaly ICD Code: I51.7 - Cardiomegaly Status: Acute Assessment and Plan Neuro/Psych: Chronic pain syndrome Status post removal of lumbar/sacral L5/S1 hardware 06/19 Chronic opioid use Patient is currently on a fentanyl drip for sedation/analgesia while intubated. Hold fentanyl for now Daily sedation vacation Acetaminophen 650 mg every 6 hours as needed for temperature greater than 101.5 Cyclobenzaprine 10 mg 3 times daily as needed muscle relaxant Morphine sulfate 15 mg every 4 hours as needed pain currently being held Respiratory: Acute hypercapnic respiratory failure -improving Mild pulmonary hypertension COPD/asthma Continue CPAP ABG now If cuff leak and ABG acceptable will extubate to BiPAP Ventilator bundle Ipratropium aerosols every 6 hours Albuterol allergy When clinically indicated resume nasal fluticasone home medication Completed 48 hours of dexamethasone Cardiovascular: A. fib RVR-resolved History of essential hypertension Chronic systolic congestive heart failure Chronic atrial fibrillation Cardizem 60 mg every 8 hours, since home medicines include Cardizem CD 08/05 Echo- The left ventricular systolic function is moderately reduced with an estimated ejection fraction in the range of 40-45%. Dyskinetic apical cap wall motion. The right ventricle is moderately dilated. Moderate mitral valve regurgitation. Aortic valve sclerosis is present. There is mild to moderate tricuspid valve regurgitation. There is estimated mild pulmonary hypertension present (range 40-50 mmHg). Gradually restart home medication as below Home medications include isosorbide dinitrate 30 mg daily, metoprolol succinate 50 mg daily lisinopril 2.5 mg daily. These are currently on hold On Coumadin per pharmacy Renal: Acute renal insufficiency incentive chronic kidney disease stage IV Right renal stone/no hydronephrosis Great response to diuresis Creatinine is back to normal Maintain Simpson -- Strict I/Os, good urine output FEN/GI: Continue tube feeds 08/05 -difficult NG tube placement, placed by IR Famotidine 10 mg twice daily for GI prophylaxis. Docusate sodium/senna 1 tablet twice daily, lactulose 30 cc twice daily for bowel regimen Replete potassium Heme/ID: Anemia of chronic disease Thrombocytopenia Leukocytosis MRSA Discitis Chronic warfarin use Funguria Continue Atrezonam, daptomycin, fluconazole. Infectious disease consult following Follow-up blood and urine cultures Coumadin per pharmacy Medical records release obtained for medical records at [facility]/[place] and [facility] - The patient has a history of recent surgery at [facility] in [place]. She underwent removal of hardware from the lumbosacral spine L1-S1 because of exposed loosened hardware from prior surgery. She reportedly had surgery of the lumbosacral spine 10 years prior. The surgery at [facility] was on 06/27. Intraoperative culture reportedly had MRSA. She was put on antibiotics by infectious disease to complete on 07/29/2017. She was receiving intravenous vancomycin. The patient completed the course of the vancomycin. There is a notation in the medical record that she is ALLERGIC TO VANCOMYCIN. She is currently on daptomycin. She continues with a drainage catheter in the lumbosacral region from prior surgery. She was seen by infectious disease physician at [facility] and reportedly will be in need of IV antibiotics for 6 weeks because of osteomyelitis of the lumbar spine. 08/06 UTI -Denise-fluconazole 200mg/d 08/04- Blood Cultures -NGTD Endocrine: Hypoglycemia-resolved Glucose monitoring per ICU protocol -- SSI Prophylaxis: GI Prophylaxis Famotidine BID DVT Prophylaxis -- SCDs -- INR therapeutic Lines: PICC line Level 2 follow-up No family present at bedside. Marcos Lye MD August 14, 2017 12:22
--- NOTE | 2017-08-14 12:37 | HHI.IDPN ---
Note Infectious Disease Note Patient remains awake. Tolerating CPAP. Plans for extubation today. Responding to commands. Afebrile. 76-year-old white female who [facility] with [facility]. She was noted to be complaining also of chest discomfort. The patient was intubated and is currently on a ventilator. In the emergency department, the patient had heart rate of 144, temperature 100.9 and respiratory rate of 53. Lactic acid level was 9.4. She was recently diagnosed with acute renal failure at [facility] and was [facility] a [facility] upon discharge there on 08/02/2017 . Evaluated at [facility] for altered mental status and also acute kidney disease. The patient has a history of recent surgery at [facility] in [place]. She underwent removal of hardware from the lumbosacral spine L1-S1 because of exposed loosened hardware from prior surgery. She reportedly had surgery of the lumbosacral spine 10 years prior. The surgery at [facility] was on 06/27. Intraoperative culture reportedly had MRSA. She was put on antibiotics by infectious disease to complete on 07/29/2017. She was receiving intravenous vancomycin. She was seen by infectious disease physician at [facility] where she was noted to have acute renal failure. 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 PAST MEDICAL HISTORY: 1. L4-S1 fusion. Recent hardware removal. 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 The patient noted to have loosened hardware 2. Atrial fibrillation. 3. COPD, 4. Plasmacytoma, 5. Anemia, 6. Osteoarthritis, 7. Appendectomy, 8. Hysterectomy, 9. Tonsillectomy, 10. Cholecystectomy, 11. Gastroesophageal reflux disease surgery. ALLERGIES: VANCOMYCIN, ALBUTEROL, GABAPENTIN, IPRATROPIUM, IRON, PENICILLIN G, PROCHLORPERAZINE Antibiotics: Aztreonam. Daptomycin. Diflucan. Objective: Vital Signs Date Time Temp Pulse Resp B/P (MAP) Pulse Ox O2 Delivery O2 Flow Rate FiO2 08/14/17 11:57 92 35 08/14/17 08:00 99.7 84 25 126/58 (80) 96 08/14/17 08:00 35 08/14/17 07:30 95 27 133/71 (91) 96 08/14/17 07:29 96 35 08/14/17 07:00 91 17 113/55 (74) 96 08/14/17 06:00 90 08/14/17 04:10 96 35 08/14/17 04:00 114 08/14/17 04:00 114 25 152/109 (123) 91 08/14/17 04:00 35 08/14/17 02:00 98.8 85 17 131/60 (83) 97 08/14/17 02:00 85 08/14/17 00:00 35 08/14/17 00:00 98.5 82 16 124/64 (84) 99 08/14/17 00:00 82 08/13/17 23:40 99 35 08/13/17 22:09 15 08/13/17 22:00 83 16 109/56 (73) 98 08/13/17 22:00 83 08/13/17 20:00 98.7 95 16 131/71 (91) 98 08/13/17 20:00 95 08/13/17 20:00 98 35 08/13/17 20:00 35 08/13/17 18:45 35 08/13/17 18:00 92 08/13/17 16:00 92 08/13/17 16:00 35 08/13/17 16:00 98.7 96 26 149/81 (103) 98 08/13/17 14:00 80 Laboratory Tests Test 08/13/17 06:09 08/14/17 03:50 White Blood Count 10.6 TH/MM3 9.8 TH/MM3 Red Blood Count 2.76 MIL/MM3 2.53 MIL/MM3 Hemoglobin 9.0 GM/DL 8.3 GM/DL Hematocrit 26.4 % 24.3 % Mean Corpuscular Volume 95.8 FL 96.3 FL Mean Corpuscular Hemoglobin 32.5 PG 32.8 PG Mean Corpuscular Hemoglobin Concent 34.0 % 34.1 % Red Cell Distribution Width 18.0 % 17.6 % Platelet Count 211 TH/MM3 209 TH/MM3 Mean Platelet Volume 8.6 FL 8.4 FL Neutrophils (%) (Auto) 88.8 % 87.2 % Lymphocytes (%) (Auto) 3.0 % 3.8 % Monocytes (%) (Auto) 3.6 % 2.9 % Eosinophils (%) (Auto) 4.5 % 5.9 % Basophils (%) (Auto) 0.1 % 0.2 % Neutrophils # (Auto) 9.4 TH/MM3 8.5 TH/MM3 Lymphocytes # (Auto) 0.3 TH/MM3 0.4 TH/MM3 Monocytes # (Auto) 0.4 TH/MM3 0.3 TH/MM3 Eosinophils # (Auto) 0.5 TH/MM3 0.6 TH/MM3 Basophils # (Auto) 0.0 TH/MM3 0.0 TH/MM3 CBC Comment DIFF FINAL DIFF FINAL Differential Comment Laboratory Tests Test 08/13/17 06:09 08/14/17 03:50 Blood Urea Nitrogen 66 MG/DL 54 MG/DL Creatinine 1.72 MG/DL 1.44 MG/DL Random Glucose 119 MG/DL 117 MG/DL Total Protein 7.2 GM/DL 6.7 GM/DL Albumin 2.6 GM/DL 2.1 GM/DL Calcium Level 8.2 MG/DL 7.8 MG/DL Phosphorus Level 2.9 MG/DL 2.5 MG/DL Magnesium Level 1.7 MG/DL 1.5 MG/DL Alkaline Phosphatase 128 U/L 105 U/L Aspartate Amino Transf (AST/SGOT) 33 U/L 31 U/L Alanine Aminotransferase (ALT/SGPT) 129 U/L 94 U/L Total Bilirubin 1.2 MG/DL 1.0 MG/DL Sodium Level 140 MEQ/L 141 MEQ/L Potassium Level 3.2 MEQ/L 3.6 MEQ/L Chloride Level 101 MEQ/L 104 MEQ/L Carbon Dioxide Level 27.4 MEQ/L 28.2 MEQ/L Anion Gap 12 MEQ/L 9 MEQ/L Estimat Glomerular Filtration Rate 29 ML/MIN 35 ML/MIN Imaging: Chest X-Ray 08/13/17 0600 Signed Impressions: Service Date/Time: Sunday, August 13, 2017 06:13 - CONCLUSION: No significant change. Epifanio Sweeney MD Chest X-Ray 08/11/17 0600 Signed Impressions: Service Date/Time: August 03:16 - CONCLUSION: Mild interval improvement in bilateral airspace disease with significant residual. Epifanio Sweeney MD Chest X-Ray 08/09/17 0000 Signed Impressions: Service Date/Time: Wednesday, August 09, 2017 11:34 - CONCLUSION: 1. Bilateral airspace disease with possibly some improving aeration in the lung bases. 2. Stable cardiomegaly. Stable position of life support tubes. 3. Stable calcifications overlying the soft tissues of the shoulders symmetrically and bilaterally. Findings are nonspecific and can represent entities such as dystrophic soft tissue calcifications, idiopathic tumoral calcinosis myositis ossificans as well as scleroderma and dermatomyositis. Findings are overtly benign, however Rogelio Santos MD Chest X-Ray 08/05/17 0600 Signed Impressions: Service Date/Time: Saturday, August 05, 2017 04:54 - CONCLUSION: Normal placement of nasogastric tube. Grossly stable aeration Sterling Aguilar MD Lumbar Spine CT 08/04/17 0000 Signed Impressions: Service Date/Time: August 13:46 - CONCLUSION: 1. There is low density in the soft tissues at the recent laminectomy site L4-L5 measuring up to 2.4 cm in thickness with out deformity of the posterior thecal sac at the laminectomy site. 2. Stable anterolisthesis at L5-S1 with bony fusion. 3. 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 Maykel Singh MD Abdomen/Pelvis CT 08/04/17 0000 Signed Impressions: Service Date/Time: August 13:46 - CONCLUSION: 1. There is stool diffusely throughout the colon suggesting constipation. 2. The solid organs of the abdomen are grossly intact. 3. No free air free fluid seen within the abdomen. No abscess is identified. 4. Small amount of free fluid within the abdomen. 5. Bilateral pleural effusions and consolidation. 6. Cardiomegaly. 7. 2 mm nonobstructing stone in the lower pole collecting system of the right kidney. 8. Anasarca. Mil Toro MD Abdomen Fluoroscopy 08/04/17 0000 Signed Impressions: Service Date/Time: August 17:00 - CONCLUSION: Uncomplicated nasoenteric suction type catheter (NGT) placement as above. Librado Hernandez MD PHYSICAL EXAMINATION: GENERAL: Awake and alert. HEENT: Extraocular movements appear intact. No icterus. Mucosa appears moist. NECK: No swelling or adenopathy. LUNGS: Slight rhonchi at the bases. Good air movement. HEART: Irregular S1 and S2. No audible murmurs, rubs or gallops. ABDOMEN: Slightly distended, soft, decreased bowel sounds. BACK: KAY drainage catheter in place. EXTREMITIES: No clubbing, cyanosis. Edema of the upper extremities. SKIN: No rash. NEUROLOGIC: Unable to fully assess. PSYCHIATRIC: Unable to fully assess. IMPRESSION: 1. Septic shock. Improved. 2. Acute hypercapnic respiratory failure. 3. Acute renal failure. Improving 4. Shock liver, probably from sepsis. LFTs improving. 5. Lung infiltrate. 6. Osteomyelitis of the lumbar spine. Patient was placed on IV antibiotics By ID at [facility]. The patient is status post hardware removal from the lumbar spine and noted to have methicillin-resistant Staph aureus on culture. She received a course of IV vancomycin which was completed on 07/29/2017. Subsequently, she was started on daptomycin for chronic infection with plan to treat the patient for 6 weeks after discharge from [facility] on 08/02. Has drain in place at the lumbar spine. She was due to have an appointment at [facility] in [place] later this month to assess the lumbar wound and possibly remove the lumbar drainage catheter. 6. Candiduria. RECOMMENDATIONS: 1. Continue the Daptomycin at q 48 hour interval. 2. Continue Azactam. 3. Continue Diflucan. 4. Monitor the clinical status. Dion Wing MD August 14, 2017 12:37
[2017-08-14] MEDS ORDERED: RESP: RACEPINEPHRINE 2.25% 0.5 ML NEB ONE (13:43)
[2017-08-14] MEDS: LABETALOL HCL 100 MG/20 ML VIAL IV PUSH PRN ×2 (15:59→18:20)
[2017-08-14] MEDS: WARFARIN SOD 1 MG TAB PO SCH (16:14)
[2017-08-14] MEDS: DAPTOmycin INJ 500 MG in SODIUM CHLORIDE 0.9% INJ 100 ML IV SCH (16:15)
[2017-08-14] MEDS: FLUCONAZOLE 200 MG PREMIX BAG 100 ML IV SCH (16:17)
[2017-08-15] VITALS (24 sets, daily range): BP systolic 131–172; BP diastolic 65–93; PULSE 74–113; RESP 24–35; TEMP 96.7–98.1; O2SAT 90–100
[2017-08-15] MEDS: METOPROLOL TARTRATE 5 MG/5 ML VIAL IV PUSH PRN ×3 (00:35→03:21)
[2017-08-15] MEDS: MORPHINE SULFATE ORAL SOLN 10 MG/0.5 ML SYRINGE PO PRN ×4 (00:35→20:24)
[2017-08-15] MEDS: LABETALOL HCL 100 MG/20 ML VIAL IV PUSH PRN (02:15)
[2017-08-15] MEDS: DILTIAZEM HCL 60 MG TAB PO SCH ×3 (03:26→21:52)
[2017-08-15] MEDS: SODIUM CHLORIDE 0.9% FLUSH 10 ML FLUSH IV FLUSH SCH ×5 (03:27→21:52)
[2017-08-15] MEDS: AZTREONAM INJ 1,000 MG in SODIUM CHLORIDE 0.9% INJ 100 ML IV SCH ×2 (03:27→18:05)
[2017-08-15] MEDS: CHLORHEXIDINE GLUCONATE 2 % 1 PACK (2 CLOTHS) TOP SCH (03:27)
[2017-08-15] MEDS: ARTIFICIAL TEARS OPTH SOLN 15 ML BTL EACH EYE SCH ×3 (03:27→21:52)
[2017-08-15] MEDS: RESP: IPRATROPIUM 0.5 MG/2.5 ML NEB NEB SCH ×3 (03:42→19:42)
--- NOTE | 2017-08-15 05:26 | RADRPT ---
EXAM DATE/TIME: 08/15/2017 05:18 [place] COMPARISON: No previous studies available for comparison. INDICATIONS : Shortness of breath, possible pulmonary disease. MEDICAL HISTORY : Cardiovascular disease. Gastroesophageal reflux disease. Sepsis. SURGICAL HISTORY : Appendectomy. Hysterectomy. ENCOUNTER: Subsequent ACUITY: 1 week PAIN SCORE: Non-responsive. LOCATION: Bilateral chest FINDINGS: A single view of the chest demonstrates endotracheal tube in good position. NG enters the stomach. Pa tchy bilateral airspace disease and pleural thickening remains. Soft tissue calcifications present in the upper extremities. CONCLUSION: 1. Stable patchy basilar airspace disease and pleural thickening. Endotracheal tube and nasogastric t ube unchanged. Fareed Masterson MD on August 15, 2017 at 5:21 Board Certified Radiologist. This report was verified electronically.
[2017-08-15] MEDS: CHLORHEXIDINE 0.12% (ORAL KIT) 15 ML CUP MT SCH ×2 (08:00→20:00)
[2017-08-15 08:50] LABS: AUTOMATED NEUTROPHIL # 10.9 TH/MM3 (1.8-7.7); BASOPHIL % 0.2 % (0.0-2.0); EOSINOPHIL # 0.1 TH/MM3 (0-0.4); EOSINOPHIL % 1.1 % (0.0-4.0); LYMPH % 2.3 % (9.0-44.0); LYMPHOCYTE # 0.3 TH/MM3 (1.0-4.8); MEAN CELL VOLUME 97.9 FL (80.0-100.0); MEAN CORPUSCULAR HEMOGLOBIN 31.6 PG (27.0-34.0); MEAN CORPUSCULAR HGB CONC 32.3 % (32.0-36.0); MEAN PLATELET VOLUME 8.2 FL (7.0-11.0); MONO % 2.8 % (0.0-8.0); MONOCYTE # 0.3 TH/MM3 (0-0.9); NEUT % 93.6 % (16.0-70.0); PLATELET COUNT 321 TH/MM3 (150-450); RED BLOOD COUNT 2.86 MIL/MM3 (4.00-5.30); RED CELL DISTRIBUTION WIDTH 17.7 % (11.6-17.2); WHITE BLOOD COUNT 11.6 TH/MM3 (4.0-11.0)
[2017-08-15] MEDS: LACTULOSE SYRUP 20 GM/30 ML CUP PO SCH ×2 (08:56→20:26)
[2017-08-15] MEDS: CYCLOBENZAPRINE HCL 10 MG TAB PO PRN ×3 (08:56→16:00)
[2017-08-15] MEDS: ZINC SULFATE 220 MG CAP PO SCH (08:56)
[2017-08-15] MEDS: FAMOTIDINE 20 MG TAB PO SCH ×2 (08:57→21:52)
[2017-08-15] MEDS: MUPIROCIN 2% OINT 1 APPLIC/GM SYR EACH NARE SCH ×2 (08:57→21:00)
[2017-08-15] MEDS: DOCUSATE SODIUM 50 MG/SENNA 8.6 MG TAB PO SCH ×2 (08:57→20:27)
[2017-08-15] MEDS: ASCORBIC ACID 500 MG TAB PO SCH (08:57)
[2017-08-15 08:58] LABS: INTERNATIONAL NORMALIZED RATIO 1.8 RATIO; PROTHROMBIN TIME - PATIENT 18.7 SEC (9.8-11.6)
[2017-08-15 09:57] LABS: ALBUMIN 2.5 GM/DL (3.4-5.0); ALKALINE PHOSPHATASE 107 U/L (45-117); ALT (GPT) 91 U/L (10-53); AST (GOT) 39 U/L (15-37); BICARBONATE 25.9 MEQ/L (21.0-32.0); BLOOD UREA NITROGEN 46 MG/DL (7-18); CALCIUM 8.7 MG/DL (8.5-10.1); CHLORIDE 103 MEQ/L (98-107); CREATININE 1.04 MG/DL (0.50-1.00); GLOMERULAR FILTRATION RATE 52 ML/MIN (>89); GLUCOSE,RANDOM 98 MG/DL (74-106); MAGNESIUM 1.6 MG/DL (1.5-2.5); PHOSPHORUS 3.5 MG/DL (2.5-4.9); SODIUM (NA) 140 MEQ/L (136-145); TOTAL BILIRUBIN ADULT 1.4 MG/DL (0.2-1.0); TOTAL PROTEIN 7.9 GM/DL (6.4-8.2)
[2017-08-15 09:59] LABS: BANDS 11 % (0-6); METAMYELOCYTES 3 % (0-1); MONOCYTES 2 % (0-8); NEUTROPHIL # MANUAL DIFF 11.4 TH/MM3 (1.8-7.7); POLYS (SEG NEUTROPHILS) 84 % (16-70); TOXIC GRANULATION 2+ (NORMAL)
--- NOTE | 2017-08-15 11:07 | HHI.CCPN ---
Subjective Remarks/Hospital Course 76-year-old female resident of the retirement presents with complaints of respiratory difficulty. Onset was today. She is also complaining with some chest discomfort. She denies productive cough. Her symptoms are moderate to severe with no exacerbating factors. This patient was reportedly just discharged from [facility] with discitis secondary to MRSA. 53: Afebrile. Early this a.m. patient still having respiratory difficulty noted metabolic acidosis with a bicarb level 13, sodium bicarbonate infusion continues. She noticed to have respiratory distress ABGs performed. Impending intubation 7.10. Patient noted to have KAY drain emanating from back with dressing taken down no area redness yellow fluid and KAY drain sent for wound culture analysis. Upon further investigation patient's brother at bedside patient had lumbar hardware removed from [facility] in [place] approximately 6 weeks ago secondary to hardware eroding through the back and could be visualized on site. 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 Gottlieb cultures are pending. Attempts at medical record release forms from [facility] are pending. Patient previously last week at [facility] for acute kidney injury/urinary tract infection, attempting to obtain medical record. Patient was discharged approximately 2-3 days ago per report. This a.m. patient went into A. fib RVR with a heart rate in the 150s patient was given metoprolol 2 doses heart rate 112, patient is known to have chronic atrial fibrillation previously on Cardizem and digoxin 0.125 IV 1 dose Cardizem reinitiated. Discussion with patient regarding intubation and patient' s brother at bedside patient desires aggressive measures be undertaken patient requests intubation if needed and to remain a full code. Noted open areas skin wound areas on the lower extremities well-healed skin graft site left thigh wound care has been consulted. Palliative care also has been consulted to define goals of care. 08/05: Patient noted with elevated INR, Coumadin has been discontinued for 2 days. Vitamin K ordered. No active signs of bleeding. Patient on sedation vacation following commands. Afib rate controlled 70's-80's since addition to p.o. Cardizem. 6: Patient is currently on PSV trial FiO2 35%. Minimal secretions. Tolerating tube feeds. No bowel movement yesterday. Follows commands. 08/08: Temperature currently 98.8. Adequate weaning parameters however no cough leak. We will give dexamethasone 1 day and recheck cuff leak in a.m. Awake and follows commands. Transaminases normalized. Creatinine continues to slowly rise. 08/09: No events overnight. Patient is lethargic, easily arousable, tolerating CPAP at 10/5. T-max of 99.9. Still no cuff leak. Urine output is appropriate , with 3650 mL's over the last 24 hours. No family present at bedside. 08/10: No events over the night. Patient is awake, complaining of back pain, on fentanyl at 150 mics/hr. Tolerating CPAP 15/5. Afebrile over the night, with a T-max of 98.8. Negative fluid balance over the last 24 hours, -500 cc. 08/11: Patient remains intubated and sedated. She did well over the night. T- max of 98.6. She continues to be on fentanyl drip for back pain, asleep, easily arousable, follows commands. 08/12: No events over the night. Patient remains intubated, on fentanyl drip, easily arousable, following commands. Great response to diuretics, more than 3600 mL's urine output. Patient tolerated CPAP well yesterday but after being cleaned she developed tachycardia and tachypnea requiring full support. T-max of 99.3. 08/13: No events over the night. T-max of 98.6. She responded great to diuresis post Lasix, negative more than 3.3 L over the last 24 hours. She remains on fentanyl drip, lethargic, easily arousable. Oxygenation is unchanged. Chest x-ray reviewed, ET tube is in good position, 3 cm above paulo , unchanged bilateral opacities. 08/14: Patient remains intubated, on fentanyl infusion at 250 mcg/hour. T-max of 99.7. Negative almost 1 L over last 24 hours. Being but easily arousable, denies any complaints. On CPAP 12/5 tolerating well. 08/15 Patient is lying in bed in NAD. On BIPAP 8 with 50% FIO2. Afebrile. s/p extubation yesterday. Objective Vital Signs Date Time Temp Pulse Resp B/P (MAP) Pulse Ox O2 Delivery O2 Flow Rate FiO2 08/15/17 10:00 77 08/15/17 10:00 31 149/70 (96) 96 08/15/17 08:30 40 08/15/17 08:00 98.0 08/15/17 01:30 Nasal Cannula 4.00 Intake and Output 08/15/17 08/15/17 08/16/17 08:00 16:00 00:00 Intake Total 100 ml Output Total 2100 ml Balance -2000 ml Result Diagram: 08/15/17 0838 08/15/17 0838 Other Results Laboratory Tests Test 08/14/17 12:12 08/15/17 08:38 Blood Gas Puncture Site RT RADIAL Blood Gas Patient Temperature 98.6 Blood Gas HCO3 29 mmol/L Blood Gas Base Excess 5.2 mmol/L Blood Gas Oxygen Saturation 87 % Arterial Blood pH 7.49 Arterial Blood Partial Pressure CO2 39 mmHg Arterial Blood Partial Pressure O2 56 mmHg Arterial Blood Oxygen Content 10.4 Vol % Arterial Blood Carboxyhemoglobin 2.1 % Arterial Blood Methemoglobin 1.3 % Blood Gas Hemoglobin 8.5 G/DL Oxygen Delivery Device VENTILATOR Blood Gas Ventilator Setting CPAP+5/PS+12 Blood Gas Inspired Oxygen 40 % White Blood Count 11.6 TH/MM3 Red Blood Count 2.86 MIL/MM3 Hemoglobin 9.0 GM/DL Hematocrit 28.0 % Mean Corpuscular Volume 97.9 FL Mean Corpuscular Hemoglobin 31.6 PG Mean Corpuscular Hemoglobin Concent 32.3 % Red Cell Distribution Width 17.7 % Platelet Count 321 TH/MM3 Mean Platelet Volume 8.2 FL Neutrophils (%) (Auto) 93.6 % Lymphocytes (%) (Auto) 2.3 % Monocytes (%) (Auto) 2.8 % Eosinophils (%) (Auto) 1.1 % Basophils (%) (Auto) 0.2 % Neutrophils # (Auto) 10.9 TH/MM3 Lymphocytes # (Auto) 0.3 TH/MM3 Monocytes # (Auto) 0.3 TH/MM3 Eosinophils # (Auto) 0.1 TH/MM3 Basophils # (Auto) 0.0 TH/MM3 CBC Comment AUTO DIFF Differential Total Cells Counted 100 Neutrophils % (Manual) 84 % Band Neutrophils % 11 % Monocytes % 2 % Neutrophils # (Manual) 11.4 TH/MM3 Metamyelocytes 3 % Differential Comment FINAL DIFF MANUAL Toxic Granulation 2+ Platelet Estimate NORMAL Platelet Morphology Comment ENLARGED Red Cell Morphology Comment NORMAL Prothrombin Time 18.7 SEC Prothromb Time International Ratio 1.8 RATIO Blood Urea Nitrogen 46 MG/DL Creatinine 1.04 MG/DL Random Glucose 98 MG/DL Total Protein 7.9 GM/DL Albumin 2.5 GM/DL Calcium Level 8.7 MG/DL Phosphorus Level 3.5 MG/DL Magnesium Level 1.6 MG/DL Alkaline Phosphatase 107 U/L Aspartate Amino Transf (AST/SGOT) 39 U/L Alanine Aminotransferase (ALT/SGPT) 91 U/L Total Bilirubin 1.4 MG/DL Sodium Level 140 MEQ/L Potassium Level 3.5 MEQ/L Chloride Level 103 MEQ/L Carbon Dioxide Level 25.9 MEQ/L Anion Gap 11 MEQ/L Estimat Glomerular Filtration Rate 52 ML/MIN Imaging Last Impressions Chest X-Ray 08/15/17 0600 Signed Impressions: Service Date/Time: Tuesday, August 15, 2017 05:18 - CONCLUSION: 1. Stable patchy basilar airspace disease and pleural thickening. Endotracheal tube and nasogastric tube unchanged. Fareed Masterson MD Lumbar Spine CT 08/04/17 0000 Signed Impressions: Service Date/Time: August 13:46 - CONCLUSION: 1. There is low density in the soft tissues at the recent laminectomy site L4-L5 measuring up to 2.4 cm in thickness with out deformity of the posterior thecal sac at the laminectomy site. 2. Stable anterolisthesis at L5-S1 with bony fusion. 3. 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 Maykel Singh MD Abdomen/Pelvis CT 08/04/17 0000 Signed Impressions: Service Date/Time: August 13:46 - CONCLUSION: 1. There is stool diffusely throughout the colon suggesting constipation. 2. The solid organs of the abdomen are grossly intact. 3. No free air free fluid seen within the abdomen. No abscess is identified. 4. Small amount of free fluid within the abdomen. 5. Bilateral pleural effusions and consolidation. 6. Cardiomegaly. 7. 2 mm nonobstructing stone in the lower pole collecting system of the right kidney. 8. Anasarca. Mil Toro MD Abdomen Fluoroscopy 08/04/17 0000 Signed Impressions: Service Date/Time: August 17:00 - CONCLUSION: Uncomplicated nasoenteric suction type catheter (NGT) placement as above. Librado Hernandez MD Procedures 08/04 -placement of NG tube IR Objective Remarks GENERAL: Patient is 76 yo lying in bed in NAD SKIN: Warm and dry. HEAD: Normocephalic. EYES: No scleral icterus. No injection or drainage. NECK: Supple, trachea midline. No JVD or lymphadenopathy. CARDIOVASCULAR: Regular rate and rhythm without murmurs, gallops, or rubs. RESPIRATORY: Breath sounds equal bilaterally. No accessory muscle use. GASTROINTESTINAL: Abdomen soft, non-tender, nondistended. MUSCULOSKELETAL: No cyanosis, or edema. Neuro: Awake Date of Insertion: August 04, 2017 A/P Problem List: (1) Afib ICD Code: I48.91 - Unspecified atrial fibrillation Status: Acute (2) EMIR (acute kidney injury) ICD Code: N17.9 - Acute kidney failure, unspecified Status: Acute (3) CKD (chronic kidney disease) stage 4, GFR 15-29 ml/min ICD Code: N18.4 - Chronic kidney disease, stage 4 (severe) Status: Acute (4) Renal insufficiency ICD Code: N28.9 - Disorder of kidney and ureter, unspecified Status: Acute (5) Chronic pain ICD Code: G89.29 - Other chronic pain Status: Acute (6) Atrial fibrillation with RVR ICD Code: I48.91 - Unspecified atrial fibrillation Status: Acute (7) Hyperkalemia ICD Code: E87.5 - Hyperkalemia Status: Acute (8) Severe sepsis ICD Code: A41.9 - Sepsis, unspecified organism; R65.20 - Severe sepsis without septic shock (9) Metabolic acidosis ICD Code: E87.2 - Acidosis Status: Acute (10) Hypoglycemia ICD Code: E16.2 - Hypoglycemia, unspecified Status: Acute (11) Cardiomegaly ICD Code: I51.7 - Cardiomegaly Status: Acute Assessment and Plan Neuro/Psych: Chronic pain syndrome Status post removal of lumbar/sacral L5/S1 hardware 06/19 Chronic opioid use Awake Acetaminophen 650 mg every 6 hours as needed for temperature greater than 101.5 Cyclobenzaprine 10 mg 3 times daily as needed muscle relaxant Morphine sulfate 15 mg every 4 hours as needed pain currently being held Respiratory: Acute hypercapnic respiratory failure -improving Mild pulmonary hypertension COPD/asthma Continue with oxygen keep sats >92% Ipratropium aerosols every 6 hours Albuterol allergy NIPPV PRN for resp distress Completed 48 hours of dexamethasone Cardiovascular: A. fib RVR-resolved History of essential hypertension Chronic systolic congestive heart failure Chronic atrial fibrillation Monitor HR and BP keep MAP>65mmHg On Cardizem 60 mg every 8 hours, 08/05 Echo- The left ventricular systolic function is moderately reduced with an EF 40-45%. Dyskinetic apical cap wall motion. The right ventricle is moderately dilated. Moderate mitral valve regurgitation. Aortic valve sclerosis is present. There is mild to moderate tricuspid valve regurgitation. There is estimated mild pulmonary hypertension present (range 40-50 mmHg). Home medications include isosorbide dinitrate 30 mg daily, metoprolol succinate 50 mg daily lisinopril 2.5 mg daily. These are currently on hold On Coumadin per pharmacy Renal: Acute renal insufficiency incentive chronic kidney disease stage IV Right renal stone/no hydronephrosis Monitor renal function, I/O's, electrolytes replacement per protocol Renal function is improving with Cr: 1.04 from 1.44 FEN/GI: Speech eval, diet per speech Famotidine 10 mg twice daily for GI prophylaxis. Docusate sodium/senna 1 tablet twice daily, lactulose 30 cc twice daily for bowel regimen Heme/ID: Anemia of chronic disease Thrombocytopenia Leukocytosis MRSA Discitis Chronic warfarin use Funguria Continue Aztreonam, daptomycin, fluconazole. ID is following Follow-up blood and urine cultures Coumadin per pharmacy Medical records release obtained for medical records at [facility] and [facility] - The patient has a history of recent surgery at [facility] in [place]. She underwent removal of hardware from the lumbosacral spine L1-S1 because of exposed loosened hardware from prior surgery. She reportedly had surgery of the lumbosacral spine 10 years prior. The surgery at [facility] was on 06/27. Intraoperative culture reportedly had MRSA. She was put on antibiotics by infectious disease to complete on 07/29/2017. She was receiving intravenous vancomycin. The patient completed the course of the vancomycin. There is a notation in the medical record that she is ALLERGIC TO VANCOMYCIN. She is currently on daptomycin. She continues with a drainage catheter in the lumbosacral region from prior surgery. She was seen by infectious disease physician at [facility] and reportedly will be in need of IV antibiotics for 6 weeks because of osteomyelitis of the lumbar spine. 08/06 UTI -Denise-fluconazole 200mg/d 08/04- Blood Cultures -NGTD Endocrine: Glucose monitoring per ICU protocol -- SSI Prophylaxis: GI Prophylaxis Famotidine BID DVT Prophylaxis -- SCDs -- INR 1.8 today Lines: PICC line Level 2 follow-up Humberto Calabrese MD August 15, 2017 11:06
--- NOTE | 2017-08-15 13:42 | HHI.HCPN ---
Reason for visit a. To assist with evaluation and management of symptoms including: dyspnea, pain b. To assist medical decision maker(s) with: better understanding of current medical conditions; weighing benefits/burdens of medical treatment options; making medical treatment decisions. Subjective/Interval History Patient seen today to follow-up on dyspnea, comfort. Medically extubated yesterday. Has required BiPAP postextubation, 50% FiO2. WBC 11. H&H stable. BUN and creatinine improving some 46/1.04. Fentanyl drip was held with extubation yesterday, patient currently on no sedation. NG tube has been reinserted, planned for tube feeding to be resumed. Patient seen in room no visitors present, nursing informs brothvíctor Garcia was in earlier today. She is alert and nodding appropriately to questions, attempts to verbalize though unable to remove BiPAP due to respiratory status. Respiratory effort is visibly labored, mildly tachypneic she nods an understanding of extubation and why is still requiring BiPAP. Explore with her possible respiratory distress status could decline requiring reintubation, versus continued BiPAP versus possibility of no further BiPAP and comfort measures only for dyspnea. She indicates that she would want to continue on the mask if possible but if her condition worsened she would not want comfort measures she would want reintubation. She also tells me is that she is hungry she asks when she will be able to eat, reviewed she cannot safely eat with BiPAP , she has NG tube in place and tube feeding will be initiated, she nods in agreement. Indicates she has pain to her back, and is cold. Provided her with a blanket. Discussed with nursing as patient currently not receiving pain medication, has PO prn morphine available. Discussed with primary nurse. . Advance Directives Living Will: Never completed Health Care Surrogate: Never completed Durable Power of Garden Equipment Mechanic: Never completed Objective Vital Signs Date Time Temp Pulse Resp B/P (MAP) Pulse Ox O2 Delivery O2 Flow Rate FiO2 08/15/17 10:01 29 08/15/17 10:00 77 08/15/17 10:00 77 31 149/70 (96) 96 08/15/17 09:00 90 08/15/17 09:00 90 31 158/83 (108) 98 08/15/17 08:30 97 40 08/15/17 08:00 98.0 97 26 168/91 (116) 94 08/15/17 08:00 97 08/15/17 07:00 101 08/15/17 07:00 101 34 157/86 (109) 97 08/15/17 06:00 91 08/15/17 04:00 77 08/15/17 04:00 97.4 74 29 131/65 (87) 92 08/15/17 03:56 90 50 08/15/17 02:00 111 08/15/17 01:30 94 Nasal Cannula 4.00 08/15/17 00:15 100 35 08/15/17 00:00 105 08/15/17 00:00 98.1 113 24 172/93 (119) 99 08/14/17 22:00 91 08/14/17 20:29 100 40 08/14/17 20:00 98.1 97 27 155/90 (111) 97 08/14/17 20:00 94 08/14/17 18:00 115 30 92 08/14/17 18:00 111 08/14/17 17:00 105 28 179/89 (119) 98 08/14/17 17:00 105 08/14/17 16:09 97 50 08/14/17 16:00 112 08/14/17 16:00 112 33 170/94 (119) 96 08/14/17 15:00 99 08/14/17 15:00 99 25 162/78 (106) 97 08/14/17 14:00 120 08/14/17 14:00 120 31 95 08/14/17 13:45 96 50 08/14/17 13:45 96 BiPAP/CPAP 50 Intake & Output 08/15/17 08/15/17 07:00 19:00 Intake Total 100 ml Output Total 2100 ml Balance -2000 ml IV Total 100 ml Output Urine Total 2100 ml # Bowel Movements 0 Physical Exam CONSTITUTIONAL/GENERAL: This is an adequately nourished patient, alert and speaking some ,though bipap limits this TUBES/LINES/DRAINS: Midline iv left upper. NG tube. BiPAP mask CARDIOVASCULAR: Irregular rate and rhythm. Atrial fib observed. No JVD. Peripheral pulses symmetric-pedal pulses very faint. + 3 edema bilateral upper extremities. RESPIRATORY/CHEST: Symmetric, mildly labored respirations via BiPAP mask. Clear to auscultation. Decreased air movement. GASTROINTESTINAL: Abdomen soft, nontender , nondistended. No hepato-splenomegaly , or palpable masses. No guarding. Bowel sounds hypoactive. NG tube in place. GENITOURINARY: Without palpable bladder distension. Catheter in place clear yellow urine. MUSCULOSKELETAL: Extremities without clubbing, cyanosis. Edema bilateral upper extremities. Healed graft scars to upper legs. Dressings to lower legs. Lower legs are very thin, with significant muscle atrophy. Arthritic appearing deformity to feet. Kyphotic posture, leaning forward in bed. NEUROLOGICAL: Alert nods to yes/no questions. Speaks very few words weekly, limited by BiPAP and respiratory status. Appears oriented to person, place and family- via nodding yes/no. Limited further assessment due to communication barriers. Cooperative, moving all 4 extremities very weakly. PSYCHIATRIC: No obvious anxiety/depression . Diagnostic Tests Laboratory Laboratory Tests Test 08/13/17 06:09 08/14/17 03:50 08/14/17 12:12 08/15/17 08:38 White Blood Count 10.6 TH/MM3 (4.0-11.0) 9.8 TH/MM3 (4.0-11.0) 11.6 TH/MM3 (4.0-11.0) Red Blood Count 2.76 MIL/MM3 (4.00-5.30) 2.53 MIL/MM3 (4.00-5.30) 2.86 MIL/MM3 (4.00-5.30) Hemoglobin 9.0 GM/DL (11.6-15.3) 8.3 GM/DL (11.6-15.3) 9.0 GM/DL (11.6-15.3) Hematocrit 26.4 % (35.0-46.0) 24.3 % (35.0-46.0) 28.0 % (35.0-46.0) Mean Corpuscular Volume 95.8 FL (80.0-100.0) 96.3 FL (80.0-100.0) 97.9 FL (80.0-100.0) Mean Corpuscular Hemoglobin 32.5 PG (27.0-34.0) 32.8 PG (27.0-34.0) 31.6 PG (27.0-34.0) Mean Corpuscular Hemoglobin Concent 34.0 % (32.0-36.0) 34.1 % (32.0-36.0) 32.3 % (32.0-36.0) Red Cell Distribution Width 18.0 % (11.6-17.2) 17.6 % (11.6-17.2) 17.7 % (11.6-17.2) Platelet Count 211 TH/MM3 (150-450) 209 TH/MM3 (150-450) 321 TH/MM3 (150-450) Mean Platelet Volume 8.6 FL (7.0-11.0) 8.4 FL (7.0-11.0) 8.2 FL (7.0-11.0) Neutrophils (%) (Auto) 88.8 % (16.0-70.0) 87.2 % (16.0-70.0) 93.6 % (16.0-70.0) Lymphocytes (%) (Auto) 3.0 % (9.0-44.0) 3.8 % (9.0-44.0) 2.3 % (9.0-44.0) Monocytes (%) (Auto) 3.6 % (0.0-8.0) 2.9 % (0.0-8.0) 2.8 % (0.0-8.0) Eosinophils (%) (Auto) 4.5 % (0.0-4.0) 5.9 % (0.0-4.0) 1.1 % (0.0-4.0) Basophils (%) (Auto) 0.1 % (0.0-2.0) 0.2 % (0.0-2.0) 0.2 % (0.0-2.0) Neutrophils # (Auto) 9.4 TH/MM3 (1.8-7.7) 8.5 TH/MM3 (1.8-7.7) 10.9 TH/MM3 (1.8-7.7) Lymphocytes # (Auto) 0.3 TH/MM3 (1.0-4.8) 0.4 TH/MM3 (1.0-4.8) 0.3 TH/MM3 (1.0-4.8) Monocytes # (Auto) 0.4 TH/MM3 (0-0.9) 0.3 TH/MM3 (0-0.9) 0.3 TH/MM3 (0-0.9) Eosinophils # (Auto) 0.5 TH/MM3 (0-0.4) 0.6 TH/MM3 (0-0.4) 0.1 TH/MM3 (0-0.4) Basophils # (Auto) 0.0 TH/MM3 (0-0.2) 0.0 TH/MM3 (0-0.2) 0.0 TH/MM3 (0-0.2) CBC Comment DIFF FINAL DIFF FINAL AUTO DIFF Differential Comment FINAL DIFF MANUAL Prothrombin Time 18.3 SEC (9.8-11.6) 17.2 SEC (9.8-11.6) 18.7 SEC (9.8-11.6) Prothromb Time International Ratio 1.8 RATIO 1.7 RATIO 1.8 RATIO Blood Urea Nitrogen 66 MG/DL (7-18) 54 MG/DL (7-18) 46 MG/DL (7-18) Creatinine 1.72 MG/DL (0.50-1.00) 1.44 MG/DL (0.50-1.00) 1.04 MG/DL (0.50-1.00) Random Glucose 119 MG/DL (74-106) 117 MG/DL (74-106) 98 MG/DL (74-106) Total Protein 7.2 GM/DL (6.4-8.2) 6.7 GM/DL (6.4-8.2) 7.9 GM/DL (6.4-8.2) Albumin 2.6 GM/DL (3.4-5.0) 2.1 GM/DL (3.4-5.0) 2.5 GM/DL (3.4-5.0) Calcium Level 8.2 MG/DL (8.5-10.1) 7.8 MG/DL (8.5-10.1) 8.7 MG/DL (8.5-10.1) Phosphorus Level 2.9 MG/DL (2.5-4.9) 2.5 MG/DL (2.5-4.9) 3.5 MG/DL (2.5-4.9) Magnesium Level 1.7 MG/DL (1.5-2.5) 1.5 MG/DL (1.5-2.5) 1.6 MG/DL (1.5-2.5) Alkaline Phosphatase 128 U/L (45-117) 105 U/L (45-117) 107 U/L (45-117) Aspartate Amino Transf (AST/SGOT) 33 U/L (15-37) 31 U/L (15-37) 39 U/L (15-37) Alanine Aminotransferase (ALT/SGPT) 129 U/L (10-53) 94 U/L (10-53) 91 U/L (10-53) Total Bilirubin 1.2 MG/DL (0.2-1.0) 1.0 MG/DL (0.2-1.0) 1.4 MG/DL (0.2-1.0) Sodium Level 140 MEQ/L (136-145) 141 MEQ/L (136-145) 140 MEQ/L (136-145) Potassium Level 3.2 MEQ/L (3.5-5.1) 3.6 MEQ/L (3.5-5.1) 3.5 MEQ/L (3.5-5.1) Chloride Level 101 MEQ/L (98-107) 104 MEQ/L (98-107) 103 MEQ/L (98-107) Carbon Dioxide Level 27.4 MEQ/L (21.0-32.0) 28.2 MEQ/L (21.0-32.0) 25.9 MEQ/L (21.0-32.0) Anion Gap 12 MEQ/L (5-15) 9 MEQ/L (5-15) 11 MEQ/L (5-15) Estimat Glomerular Filtration Rate 29 ML/MIN (>89) 35 ML/MIN (>89) 52 ML/MIN (>89) Blood Gas Puncture Site RT RADIAL Blood Gas Patient Temperature 98.6 Blood Gas HCO3 29 mmol/L (22-26) Blood Gas Base Excess 5.2 mmol/L (-2-2) Blood Gas Oxygen Saturation 87 % (90-100) Arterial Blood pH 7.49 (7.380-7.420) Arterial Blood Partial Pressure CO2 39 mmHg (38-42) Arterial Blood Partial Pressure O2 56 mmHg (61-120) Arterial Blood Oxygen Content 10.4 Vol % (12.0-20.0) Arterial Blood Carboxyhemoglobin 2.1 % (0-4) Arterial Blood Methemoglobin 1.3 % (0-2) Blood Gas Hemoglobin 8.5 G/DL (12.0-16.0) Oxygen Delivery Device VENTILATOR Blood Gas Ventilator Setting CPAP+5/PS+12 Blood Gas Inspired Oxygen 40 % Differential Total Cells Counted 100 Neutrophils % (Manual) 84 % (16-70) Band Neutrophils % 11 % (0-6) Monocytes % 2 % (0-8) Neutrophils # (Manual) 11.4 TH/MM3 (1.8-7.7) Metamyelocytes 3 % (0-1) Toxic Granulation 2+ (NORMAL) Platelet Estimate NORMAL (NORMAL) Platelet Morphology Comment ENLARGED (NORMAL) Red Cell Morphology Comment NORMAL (NORMAL) Result Diagram: 08/15/17 0838 08/15/17 0838 Imaging Last Impressions Chest X-Ray 08/15/17 0600 Signed Impressions: Service Date/Time: Tuesday, August 15, 2017 05:18 - CONCLUSION: 1. Stable patchy basilar airspace disease and pleural thickening. Endotracheal tube and nasogastric tube unchanged. Fareed Masterson MD Lumbar Spine CT 08/04/17 0000 Signed Impressions: Service Date/Time: August 13:46 - CONCLUSION: 1. There is low density in the soft tissues at the recent laminectomy site L4-L5 measuring up to 2.4 cm in thickness with out deformity of the posterior thecal sac at the laminectomy site. 2. Stable anterolisthesis at L5-S1 with bony fusion. 3. 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 Maykel Singh MD Abdomen/Pelvis CT 08/04/17 0000 Signed Impressions: Service Date/Time: August 13:46 - CONCLUSION: 1. There is stool diffusely throughout the colon suggesting constipation. 2. The solid organs of the abdomen are grossly intact. 3. No free air free fluid seen within the abdomen. No abscess is identified. 4. Small amount of free fluid within the abdomen. 5. Bilateral pleural effusions and consolidation. 6. Cardiomegaly. 7. 2 mm nonobstructing stone in the lower pole collecting system of the right kidney. 8. Anasarca. Mil Toro MD Abdomen Fluoroscopy 08/04/17 0000 Signed Impressions: Service Date/Time: Thursday, August 04, 2017 17:00 - CONCLUSION: Uncomplicated nasoenteric suction type catheter (NGT) placement as above. Librado Hernandez MD Procedures 08/03/17 central line placed 08/04/17 intubated Assessment and Plan Disease Oriented Problem List: (1) Acute respiratory failure (2) CAD (coronary artery disease) (3) GERD (gastroesophageal reflux disease) (4) Anemia (5) Chest pain (6) Elevated troponin (7) Urinary tract infection (8) Sepsis (9) MRSA (methicillin resistant Staphylococcus aureus) septicemia (10) Atrial fibrillation with RVR (11) Hyperkalemia (12) Cardiomegaly (13) Hypoglycemia (14) Renal insufficiency (15) Metabolic acidosis (16) CKD (chronic kidney disease) stage 4, GFR 15-29 ml/min Symptom Scale: (1) Dyspnea 0-10 Scale: Unable to quantify (2) Pain 0-10 Scale: Unable to quantify Pertinent Non-Medical Issues 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 Not no children. Part of a very large family she has multiple siblings. She is closest with her brother Jose, who is local. Jose describes her as jessee and extremely kind and caring. 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 She may at some point regain ability to participate. Brother Jose indicates she has always listed him as primary contact, and has always indicated that she trusts him to make decisions when she cannot however he is not certain that she has completed any documentation of healthcare surrogate or advanced directives. Per [place] statutes legal decision making would fall to the majority of all of patient's siblings. Brothvíctor indicates that he has always been the one assisting her with medical needs, decisions. Will discuss with him further tomorrow and attempt to contact additional siblings to determine if they wish to participate in decision-making. 08/05/17 4 of 5 siblings defer to brother Jose. Ethical issues impacting care: None identified Important Contacts Brother Mark Nicolas (Bill) [phone] Sister Karrie defers to brother Jose Sister Malu defers to brother Jose Brother Sterling defers to brother Jose brother Gm defers to Jose Sister Itzel-- 08/08 defers to Jose . Prognosis This patient was admitted for respiratory distress, chest discomfort. She has had multiple recent hospitalizations and rehabilitation courses. Brother details that each time one condition stabilizes or improves she experiences another complication. She has required ongoing treatment for MRSA infection at a surgical site. Given her advanced age and multiple condition she does remain at risk for continued complications and decline and possibly . Code Status: Full Code Plan * Legal decision maker: Patient currently on mechanical vent, sedation unable to participate in decision-making. She may at some point regain ability to participate. Brothvíctor Garcia indicates she has always listed him as primary contact, and has always indicated that she trusts him to make decisions when she cannot however he is not certain that she has completed any documentation of healthcare surrogate or advanced directives. Per [place] statutes legal decision making would fall to the majority of all of patient's siblings. Brothvíctor indicates that he has always been the one assisting her with medical needs, decisions. Will discuss with him further tomorrow and attempt to contact additional siblings to determine if they wish to participate in decision -making. 08/05/17 brother Mark (Jose )called 4 of the 5 siblings each elected for him to serve as spokesperson for proxy decision-making. He left a voicemail for the fifth sibling Itzel. 08/08/17 call back from sister Itzel, who defers decision making/proxy to brother Jose. Jose willing to cont to serve as HC proxy. If patient is able to be medically extubated she may be able to participate in decision-making, and complete healthcare surrogate designation, palliative can assist with this if she is able. * Goals: Brother continues to express aggressive goals as consistent with patient known wishes. He is open to ongoing conversations as clinical course evolves. pt medically extubated yesterday, able to nod/participate today, indicates she would want reintubation, NOT interested in comfort measures if condition declines. * CODE STATUS:Full code * SYMPTOMS: --dyspnea-admitted for respiratory distress. Worsening respiratory status, metabolic acidosis, intubated 08/04. She is currently breathing comfortably on mechanical vent. CXR with slight improvement. CPAP trials ongoing- medical extubation yesterday, requiring Bipap. she requests reintubation if condition deteriorates. Not interested in comfort measures. If goals were comfort oriented prn benzodiazepines would be beneficial --Pain-patient appears comfortable at time of exam, currently unable to report pain however potential sources would include: Bedbound status, recent invasive procedure intubation, central line, multiple recent hospitalizations and surgical procedures, KAY to back still in place. She is noted to be on chronic morphine long-acting and short-acting prior to admission and has underwent multiple procedures and hospitalizations recently so likely has some underlying chronic pain. She was initially started on on fentanyl drip --this has been discontinued. Today she does indicate that she to her back, I did explore with her balancing sedation versus pain relief. Discussed with nursing - may need to resume home scheduled long acting pain regimen. has oral morphine 10mg available. She is chronically on morphine extended release 15 mg every 12 hours, as well as morphine 15 mg prn for breakthrough pain; appears she is not opiate salomón may need additional pain regimen as clinical course goes forward. Will continue to evaluate. * Palliative care will continue to follow during hospital course as condition evolves, to assist patient/decision-maker with understanding of medical conditions, weighing benefits/burdens of treatment options, for clarification of goals of treatment. Additionally will assist with any symptoms of palliative concern . Time Spent Total Floor Time (mins): 20 (chart review, PE, d/w nursing, d/w pt) Attestation To help prompt me to consider important information that might be impacting today's encounter and assessment, information from prior notes written by myself or my colleagues may have been "brought forward" into today's note. My signature on this note, however, is an attestation that I personally performed the exam, history, and/or decision-making noted today, and, unless otherwise indicated, the interactions with patient, family, and staff as well as the review of records all occurred today. I also attest that the listed assessment and stated plan reflect my best clinical judgment today based on the combination of historical information, prior notes, and today's exam/ interactions. When time spent is documented, it refers only to time spent today by the signer, or if indicated, combined time spent today by collaborating physician/nurse practitioner. Angelica Barajas August 15, 2017 13:42
--- NOTE | 2017-08-15 13:52 | HHI.IDPN ---
Note Infectious Disease Note Patient was extubated yesterday. She is now on BiPAP. She is awake and nods her head to questions. O2 saturation is 100%. Difficulty communicating because of the BiPAP. 76-year-old white female who presented to the Emergency Department from long term facility with respiratory distress. She was noted to be complaining also of chest discomfort. The patient was intubated and is currently on a ventilator. In the emergency department, the patient had heart rate of 144, temperature 100.9 and respiratory rate of 53. Lactic acid level was 9.4. She was recently diagnosed with acute renal failure at [facility] and was transferred to a long term facility upon discharge there on 08/02/2017 . Evaluated at [facility] for altered mental status and also acute kidney disease. The patient has a history of recent surgery at [facility] in [place]. She underwent removal of hardware from the lumbosacral spine L1-S1 because of exposed loosened hardware from prior surgery. She reportedly had surgery of the lumbosacral spine 10 years prior. The surgery at [facility] was on 06/27. Intraoperative culture reportedly had MRSA. She was put on antibiotics by infectious disease to complete on 07/29/2017. She was receiving intravenous vancomycin. She was seen by infectious disease physician at [facility] where she was noted to have acute renal failure. 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 PAST MEDICAL HISTORY: 1. L4-S1 fusion. Recent hardware removal. 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 The patient noted to have loosened hardware 2. Atrial fibrillation. 3. COPD, 4. Plasmacytoma, 5. Anemia, 6. Osteoarthritis, 7. Appendectomy, 8. Hysterectomy, 9. Tonsillectomy, 10. Cholecystectomy, 11. Gastroesophageal reflux disease surgery. ALLERGIES: VANCOMYCIN, ALBUTEROL, GABAPENTIN, IPRATROPIUM, IRON, PENICILLIN G, PROCHLORPERAZINE Antibiotics: Aztreonam. Daptomycin. Diflucan. Objective: Vital Signs Date Time Temp Pulse Resp B/P (MAP) Pulse Ox O2 Delivery O2 Flow Rate FiO2 08/15/17 10:01 29 08/15/17 10:00 77 08/15/17 10:00 77 31 149/70 (96) 96 08/15/17 09:00 90 08/15/17 09:00 90 31 158/83 (108) 98 08/15/17 08:30 97 40 08/15/17 08:00 98.0 97 26 168/91 (116) 94 08/15/17 08:00 97 08/15/17 07:00 101 08/15/17 07:00 101 34 157/86 (109) 97 08/15/17 06:00 91 08/15/17 04:00 77 08/15/17 04:00 97.4 74 29 131/65 (87) 92 08/15/17 03:56 90 50 08/15/17 02:00 111 08/15/17 01:30 94 Nasal Cannula 4.00 08/15/17 00:15 100 35 08/15/17 00:00 105 08/15/17 00:00 98.1 113 24 172/93 (119) 99 08/14/17 22:00 91 08/14/17 20:29 100 40 08/14/17 20:00 98.1 97 27 155/90 (111) 97 08/14/17 20:00 94 08/14/17 18:00 115 30 92 08/14/17 18:00 111 08/14/17 17:00 105 28 179/89 (119) 98 08/14/17 17:00 105 08/14/17 16:09 97 50 08/14/17 16:00 112 08/14/17 16:00 112 33 170/94 (119) 96 08/14/17 15:00 99 08/14/17 15:00 99 25 162/78 (106) 97 08/14/17 14:00 120 08/14/17 14:00 120 31 95 Laboratory Tests Test 08/14/17 03:50 08/15/17 08:38 White Blood Count 9.8 TH/MM3 11.6 TH/MM3 Red Blood Count 2.53 MIL/MM3 2.86 MIL/MM3 Hemoglobin 8.3 GM/DL 9.0 GM/DL Hematocrit 24.3 % 28.0 % Mean Corpuscular Volume 96.3 FL 97.9 FL Mean Corpuscular Hemoglobin 32.8 PG 31.6 PG Mean Corpuscular Hemoglobin Concent 34.1 % 32.3 % Red Cell Distribution Width 17.6 % 17.7 % Platelet Count 209 TH/MM3 321 TH/MM3 Mean Platelet Volume 8.4 FL 8.2 FL Neutrophils (%) (Auto) 87.2 % 93.6 % Lymphocytes (%) (Auto) 3.8 % 2.3 % Monocytes (%) (Auto) 2.9 % 2.8 % Eosinophils (%) (Auto) 5.9 % 1.1 % Basophils (%) (Auto) 0.2 % 0.2 % Neutrophils # (Auto) 8.5 TH/MM3 10.9 TH/MM3 Lymphocytes # (Auto) 0.4 TH/MM3 0.3 TH/MM3 Monocytes # (Auto) 0.3 TH/MM3 0.3 TH/MM3 Eosinophils # (Auto) 0.6 TH/MM3 0.1 TH/MM3 Basophils # (Auto) 0.0 TH/MM3 0.0 TH/MM3 CBC Comment DIFF FINAL AUTO DIFF Differential Comment FINAL DIFF MANUAL Differential Total Cells Counted 100 Neutrophils % (Manual) 84 % Band Neutrophils % 11 % Monocytes % 2 % Neutrophils # (Manual) 11.4 TH/MM3 Metamyelocytes 3 % Toxic Granulation 2+ Platelet Estimate NORMAL Platelet Morphology Comment ENLARGED Red Cell Morphology Comment NORMAL Laboratory Tests Test 08/14/17 03:50 08/15/17 08:38 Blood Urea Nitrogen 54 MG/DL 46 MG/DL Creatinine 1.44 MG/DL 1.04 MG/DL Random Glucose 117 MG/DL 98 MG/DL Total Protein 6.7 GM/DL 7.9 GM/DL Albumin 2.1 GM/DL 2.5 GM/DL Calcium Level 7.8 MG/DL 8.7 MG/DL Phosphorus Level 2.5 MG/DL 3.5 MG/DL Magnesium Level 1.5 MG/DL 1.6 MG/DL Alkaline Phosphatase 105 U/L 107 U/L Aspartate Amino Transf (AST/SGOT) 31 U/L 39 U/L Alanine Aminotransferase (ALT/SGPT) 94 U/L 91 U/L Total Bilirubin 1.0 MG/DL 1.4 MG/DL Sodium Level 141 MEQ/L 140 MEQ/L Potassium Level 3.6 MEQ/L 3.5 MEQ/L Chloride Level 104 MEQ/L 103 MEQ/L Carbon Dioxide Level 28.2 MEQ/L 25.9 MEQ/L Anion Gap 9 MEQ/L 11 MEQ/L Estimat Glomerular Filtration Rate 35 ML/MIN 52 ML/MIN Imaging: Chest X-Ray 08/15/17 0600 Signed Impressions: Service Date/Time: Tuesday, August 15, 2017 05:18 - CONCLUSION: 1. Stable patchy basilar airspace disease and pleural thickening. Endotracheal tube and nasogastric tube unchanged. Fareed Masterson MD Chest X-Ray 08/11/17 0600 Signed Impressions: Service Date/Time: August 03:16 - CONCLUSION: Mild interval improvement in bilateral airspace disease with significant residual. Epifanio Sweeney MD Chest X-Ray 08/09/17 0000 Signed Impressions: Service Date/Time: Wednesday, August 09, 2017 11:34 - CONCLUSION: 1. Bilateral airspace disease with possibly some improving aeration in the lung bases. 2. Stable cardiomegaly. Stable position of life support tubes. 3. Stable calcifications overlying the soft tissues of the shoulders symmetrically and bilaterally. Findings are nonspecific and can represent entities such as dystrophic soft tissue calcifications, idiopathic tumoral calcinosis myositis ossificans as well as scleroderma and dermatomyositis. Findings are overtly benign, however Rogelio Santos MD Chest X-Ray 08/05/17 0600 Signed Impressions: Service Date/Time: Saturday, August 05, 2017 04:54 - CONCLUSION: Normal placement of nasogastric tube. Grossly stable aeration Sterling Aguilar MD Lumbar Spine CT 08/04/17 0000 Signed Impressions: Service Date/Time: August 13:46 - CONCLUSION: 1. There is low density in the soft tissues at the recent laminectomy site L4-L5 measuring up to 2.4 cm in thickness with out deformity of the posterior thecal sac at the laminectomy site. 2. Stable anterolisthesis at L5-S1 with bony fusion. 3. 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 Maykel Singh MD Abdomen/Pelvis CT 08/04/17 0000 Signed Impressions: Service Date/Time: August 13:46 - CONCLUSION: 1. There is stool diffusely throughout the colon suggesting constipation. 2. The solid organs of the abdomen are grossly intact. 3. No free air free fluid seen within the abdomen. No abscess is identified. 4. Small amount of free fluid within the abdomen. 5. Bilateral pleural effusions and consolidation. 6. Cardiomegaly. 7. 2 mm nonobstructing stone in the lower pole collecting system of the right kidney. 8. Anasarca. Mil Toro MD Abdomen Fluoroscopy 08/04/17 0000 Signed Impressions: Service Date/Time: August 17:00 - CONCLUSION: Uncomplicated nasoenteric suction type catheter (NGT) placement as above. Librado Hernandez MD PHYSICAL EXAMINATION: GENERAL: Awake and alert. HEENT: Extraocular movements appear intact. No icterus. Mucosa appears moist. NECK: No swelling or adenopathy. LUNGS: Slight rhonchi at the bases. Good air movement. HEART: Irregular S1 and S2. No audible murmurs, rubs or gallops. ABDOMEN: Slightly distended, soft, normal bowel sounds. BACK: KAY drainage catheter in place. Right serous drainage in the bulb. EXTREMITIES: No clubbing, cyanosis. Edema of the upper extremities. SKIN: No rash. NEUROLOGIC: Unable to fully assess. PSYCHIATRIC: Pleasant. Calm and cooperative. IMPRESSION: 1. Septic shock. Improved. 2. Acute hypercapnic respiratory failure. 3. Acute renal failure. Improving 4. Shock liver, probably from sepsis. LFTs improving. 5. Lung infiltrate. 6. Osteomyelitis of the lumbar spine. Patient was placed on IV antibiotics By ID at [facility]. The patient is status post hardware removal from the lumbar spine and noted to have methicillin-resistant Staph aureus on culture. She received a course of IV vancomycin which was completed on 07/29/2017. Subsequently, she was started on daptomycin for chronic infection with plan to treat the patient for 6 weeks after discharge from [facility] on 08/02. Has drain in place at the lumbar spine. She was due to have an appointment at [facility] in [place] later this month to assess the lumbar wound and possibly remove the lumbar drainage catheter. 6. Candiduria. RECOMMENDATIONS: 1. Continue the Daptomycin at q 48 hour interval. 2. Continue Azactam. 3. Stop Diflucan. 4. Monitor the clinical status. Dion Wing MD August 15, 2017 13:52
[2017-08-15] MEDS: WARFARIN SOD 1 MG TAB PO SCH (15:19)
[2017-08-15] MEDS ORDERED: GLUCAGON 1 MG/ML VIAL OTHER PRN (16:00)
[2017-08-15] MEDS ORDERED: WARFARIN SOD 1 MG TAB PO ONE (16:00)
[2017-08-15] MEDS: INSULIN NovoLIN REGULAR SUPPLEMENTAL SCALE SQ SCH ×2 (16:00→20:00)
[2017-08-15] MEDS ORDERED: DEXTROSE 50% IN WATER 50 ML VIAL(D50) IV PUSH PRN (16:00)
[2017-08-16] VITALS (23 sets, daily range): BP systolic 137–181; BP diastolic 71–90; PULSE 80–113; RESP 28–40; TEMP 97.1–98; O2SAT 90–100
[2017-08-16] MEDS: RESP: IPRATROPIUM 0.5 MG/2.5 ML NEB NEB SCH ×4 (03:34→20:04)
[2017-08-16] MEDS: CHLORHEXIDINE GLUCONATE 2 % 1 PACK (2 CLOTHS) TOP SCH (04:00)
[2017-08-16] MEDS: INSULIN NovoLIN REGULAR SUPPLEMENTAL SCALE SQ SCH ×6 (04:00→20:00)
[2017-08-16] MEDS: AZTREONAM INJ 1,000 MG in SODIUM CHLORIDE 0.9% INJ 100 ML IV SCH (05:00)
[2017-08-16 05:03] LABS: INTERNATIONAL NORMALIZED RATIO 2.4 RATIO
[2017-08-16 05:04] LABS: AUTOMATED NEUTROPHIL # 10.1 TH/MM3 (1.8-7.7); BASOPHIL % 0.3 % (0.0-2.0); EOSINOPHIL # 0.2 TH/MM3 (0-0.4); EOSINOPHIL % 1.4 % (0.0-4.0); HEMATOCRIT 27.2 % (35.0-46.0); HEMOGLOBIN 9.2 GM/DL (11.6-15.3); LYMPH % 2.7 % (9.0-44.0); LYMPHOCYTE # 0.3 TH/MM3 (1.0-4.8); MEAN CELL VOLUME 95.7 FL (80.0-100.0); MEAN CORPUSCULAR HEMOGLOBIN 32.2 PG (27.0-34.0); MEAN CORPUSCULAR HGB CONC 33.7 % (32.0-36.0); MONO % 3.7 % (0.0-8.0); MONOCYTE # 0.4 TH/MM3 (0-0.9); NEUT % 91.9 % (16.0-70.0); PLATELET COUNT 414 TH/MM3 (150-450); RED BLOOD COUNT 2.84 MIL/MM3 (4.00-5.30); RED CELL DISTRIBUTION WIDTH 17.1 % (11.6-17.2)
[2017-08-16 05:55] LABS: ALBUMIN 2.5 GM/DL (3.4-5.0); ALT (GPT) 80 U/L (10-53); AST (GOT) 41 U/L (15-37); BICARBONATE 25.7 MEQ/L (21.0-32.0); BLOOD UREA NITROGEN 40 MG/DL (7-18); CALCIUM 8.5 MG/DL (8.5-10.1); CHLORIDE 104 MEQ/L (98-107); CREATININE 0.95 MG/DL (0.50-1.00); GLOMERULAR FILTRATION RATE 57 ML/MIN (>89); GLUCOSE,RANDOM 81 MG/DL (74-106); MAGNESIUM 1.5 MG/DL (1.5-2.5); SODIUM (NA) 142 MEQ/L (136-145)
[2017-08-16 05:59] LABS: ALKALINE PHOSPHATASE 112 U/L (45-117); PHOSPHORUS 3.2 MG/DL (2.5-4.9); TOTAL BILIRUBIN ADULT 1.2 MG/DL (0.2-1.0)
[2017-08-16] MEDS: DILTIAZEM HCL 60 MG TAB PO SCH ×3 (06:21→17:56)
[2017-08-16] MEDS: SODIUM CHLORIDE 0.9% FLUSH 10 ML FLUSH IV FLUSH SCH ×5 (06:21→21:35)
[2017-08-16] MEDS: ARTIFICIAL TEARS OPTH SOLN 15 ML BTL EACH EYE SCH ×3 (06:21→21:35)
[2017-08-16] MEDS: MUPIROCIN 2% OINT 1 APPLIC/GM SYR EACH NARE SCH ×2 (09:17→21:00)
[2017-08-16] MEDS: ASCORBIC ACID 500 MG TAB PO SCH (09:17)
[2017-08-16] MEDS: ZINC SULFATE 220 MG CAP PO SCH (09:17)
[2017-08-16] MEDS: LACTULOSE SYRUP 20 GM/30 ML CUP PO SCH ×2 (09:17→21:00)
[2017-08-16] MEDS: FAMOTIDINE 20 MG TAB PO SCH ×2 (09:17→21:35)
[2017-08-16] MEDS: DOCUSATE SODIUM 50 MG/SENNA 8.6 MG TAB PO SCH ×2 (09:17→21:00)
[2017-08-16] MEDS: CHLORHEXIDINE 0.12% (ORAL KIT) 15 ML CUP MT SCH ×2 (09:18→20:00)
[2017-08-16] MEDS: LABETALOL HCL 100 MG/20 ML VIAL IV PUSH PRN (09:29)
--- NOTE | 2017-08-16 09:42 | HHI.CCPN ---
Subjective Remarks/Hospital Course 76-year-old female resident of the senior living presents with complaints of respiratory difficulty. Onset was today. She is also complaining with some chest discomfort. She denies productive cough. Her symptoms are moderate to severe with no exacerbating factors. This patient was reportedly just discharged from [facility] with discitis secondary to MRSA. 53: Afebrile. Early this a.m. patient still having respiratory difficulty noted metabolic acidosis with a bicarb level 13, sodium bicarbonate infusion continues. She noticed to have respiratory distress ABGs performed. Impending intubation 7.10. Patient noted to have KAY drain emanating from back with dressing taken down no area redness yellow fluid and KAY drain sent for wound culture analysis. Upon further investigation patient's brother at bedside patient had lumbar hardware removed from [facility] in [place] approximately 6 weeks ago secondary to hardware eroding through the back and could be visualized on site. 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 Gottlieb cultures are pending. Attempts at medical record release forms from [facility] are pending. Patient previously last week at [facility] for acute kidney injury/urinary tract infection, attempting to obtain medical record. Patient was discharged approximately 2-3 days ago per report. This a.m. patient went into A. fib RVR with a heart rate in the 150s patient was given metoprolol 2 doses heart rate 112, patient is known to have chronic atrial fibrillation previously on Cardizem and digoxin 0.125 IV 1 dose Cardizem reinitiated. Discussion with patient regarding intubation and patient' s brother at bedside patient desires aggressive measures be undertaken patient requests intubation if needed and to remain a full code. Noted open areas skin wound areas on the lower extremities well-healed skin graft site left thigh wound care has been consulted. Palliative care also has been consulted to define goals of care. 08/05: Patient noted with elevated INR, Coumadin has been discontinued for 2 days. Vitamin K ordered. No active signs of bleeding. Patient on sedation vacation following commands. Afib rate controlled 70's-80's since addition to p.o. Cardizem. 6: Patient is currently on PSV trial FiO2 35%. Minimal secretions. Tolerating tube feeds. No bowel movement yesterday. Follows commands. 08/08: Temperature currently 98.8. Adequate weaning parameters however no cough leak. We will give dexamethasone 1 day and recheck cuff leak in a.m. Awake and follows commands. Transaminases normalized. Creatinine continues to slowly rise. 08/09: No events overnight. Patient is lethargic, easily arousable, tolerating CPAP at 10/5. T-max of 99.9. Still no cuff leak. Urine output is appropriate , with 3650 mL's over the last 24 hours. No family present at bedside. 08/10: No events over the night. Patient is awake, complaining of back pain, on fentanyl at 150 mics/hr. Tolerating CPAP 15/5. Afebrile over the night, with a T-max of 98.8. Negative fluid balance over the last 24 hours, -500 cc. 08/11: Patient remains intubated and sedated. She did well over the night. T- max of 98.6. She continues to be on fentanyl drip for back pain, asleep, easily arousable, follows commands. 08/12: No events over the night. Patient remains intubated, on fentanyl drip, easily arousable, following commands. Great response to diuretics, more than 3600 mL's urine output. Patient tolerated CPAP well yesterday but after being cleaned she developed tachycardia and tachypnea requiring full support. T-max of 99.3. 08/13: No events over the night. T-max of 98.6. She responded great to diuresis post Lasix, negative more than 3.3 L over the last 24 hours. She remains on fentanyl drip, lethargic, easily arousable. Oxygenation is unchanged. Chest x-ray reviewed, ET tube is in good position, 3 cm above paulo , unchanged bilateral opacities. 08/14: Patient remains intubated, on fentanyl infusion at 250 mcg/hour. T-max of 99.7. Negative almost 1 L over last 24 hours. Being but easily arousable, denies any complaints. On CPAP 12/5 tolerating well. 08/15 Patient is lying in bed in NAD. On BIPAP 01/09 with 50% FIO2. Afebrile. s/p extubation yesterday. 08/16 Patient was placed on BIPAP overnight. Afebrile Objective Vital Signs Date Time Temp Pulse Resp B/P (MAP) Pulse Ox O2 Delivery O2 Flow Rate FiO2 08/16/17 08:00 97.8 93 32 169/81 (110) 98 08/16/17 07:26 40 08/15/17 19:44 BiPAP 08/15/17 01:30 4.00 Intake and Output 08/16/17 08/16/17 08/17/17 08:00 16:00 00:00 Output Total 965 ml Balance -965 ml Result Diagram: 08/16/17 0446 08/16/17 0446 Other Results Laboratory Tests Test 08/16/17 04:46 White Blood Count 11.0 TH/MM3 Red Blood Count 2.84 MIL/MM3 Hemoglobin 9.2 GM/DL Hematocrit 27.2 % Mean Corpuscular Volume 95.7 FL Mean Corpuscular Hemoglobin 32.2 PG Mean Corpuscular Hemoglobin Concent 33.7 % Red Cell Distribution Width 17.1 % Platelet Count 414 TH/MM3 Mean Platelet Volume 8.0 FL Neutrophils (%) (Auto) 91.9 % Lymphocytes (%) (Auto) 2.7 % Monocytes (%) (Auto) 3.7 % Eosinophils (%) (Auto) 1.4 % Basophils (%) (Auto) 0.3 % Neutrophils # (Auto) 10.1 TH/MM3 Lymphocytes # (Auto) 0.3 TH/MM3 Monocytes # (Auto) 0.4 TH/MM3 Eosinophils # (Auto) 0.2 TH/MM3 Basophils # (Auto) 0.0 TH/MM3 CBC Comment DIFF FINAL Differential Comment Prothrombin Time 24.0 SEC Prothromb Time International Ratio 2.4 RATIO Blood Urea Nitrogen 40 MG/DL Creatinine 0.95 MG/DL Random Glucose 81 MG/DL Total Protein 8.0 GM/DL Albumin 2.5 GM/DL Calcium Level 8.5 MG/DL Phosphorus Level 3.2 MG/DL Magnesium Level 1.5 MG/DL Alkaline Phosphatase 112 U/L Aspartate Amino Transf (AST/SGOT) 41 U/L Alanine Aminotransferase (ALT/SGPT) 80 U/L Total Bilirubin 1.2 MG/DL Sodium Level 142 MEQ/L Potassium Level 3.0 MEQ/L Chloride Level 104 MEQ/L Carbon Dioxide Level 25.7 MEQ/L Anion Gap 12 MEQ/L Estimat Glomerular Filtration Rate 57 ML/MIN Imaging Last Impressions Chest X-Ray 08/15/17 0600 Signed Impressions: Service Date/Time: Tuesday, August 15, 2017 05:18 - CONCLUSION: 1. Stable patchy basilar airspace disease and pleural thickening. Endotracheal tube and nasogastric tube unchanged. Fareed Masterson MD Lumbar Spine CT 08/04/17 0000 Signed Impressions: Service Date/Time: August 13:46 - CONCLUSION: 1. There is low density in the soft tissues at the recent laminectomy site L4-L5 measuring up to 2.4 cm in thickness with out deformity of the posterior thecal sac at the laminectomy site. 2. Stable anterolisthesis at L5-S1 with bony fusion. 3. 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 Maykel Singh MD Abdomen/Pelvis CT 08/04/17 0000 Signed Impressions: Service Date/Time: August 13:46 - CONCLUSION: 1. There is stool diffusely throughout the colon suggesting constipation. 2. The solid organs of the abdomen are grossly intact. 3. No free air free fluid seen within the abdomen. No abscess is identified. 4. Small amount of free fluid within the abdomen. 5. Bilateral pleural effusions and consolidation. 6. Cardiomegaly. 7. 2 mm nonobstructing stone in the lower pole collecting system of the right kidney. 8. Anasarca. Mil Toro MD Abdomen Fluoroscopy 08/04/17 0000 Signed Impressions: Service Date/Time: August 17:00 - CONCLUSION: Uncomplicated nasoenteric suction type catheter (NGT) placement as above. Librado Hernandez MD Procedures 08/04 -placement of NG tube IR Objective Remarks GENERAL: Patient is 76 yo lying in bed in NAD SKIN: Warm and dry. HEAD: Normocephalic. EYES: No scleral icterus. No injection or drainage. NECK: Supple, trachea midline. No JVD or lymphadenopathy. CARDIOVASCULAR: Regular rate and rhythm without murmurs, gallops, or rubs. RESPIRATORY: Breath sounds equal bilaterally. No accessory muscle use. GASTROINTESTINAL: Abdomen soft, non-tender, nondistended. MUSCULOSKELETAL: No cyanosis, or edema. Neuro: Awake Date of Insertion: August 04, 2017 A/P Problem List: (1) Afib ICD Code: I48.91 - Unspecified atrial fibrillation Status: Acute (2) EMIR (acute kidney injury) ICD Code: N17.9 - Acute kidney failure, unspecified Status: Acute (3) CKD (chronic kidney disease) stage 4, GFR 15-29 ml/min ICD Code: N18.4 - Chronic kidney disease, stage 4 (severe) Status: Acute (4) Renal insufficiency ICD Code: N28.9 - Disorder of kidney and ureter, unspecified Status: Acute (5) Chronic pain ICD Code: G89.29 - Other chronic pain Status: Acute (6) Atrial fibrillation with RVR ICD Code: I48.91 - Unspecified atrial fibrillation Status: Acute (7) Hyperkalemia ICD Code: E87.5 - Hyperkalemia Status: Acute (8) Severe sepsis ICD Code: A41.9 - Sepsis, unspecified organism; R65.20 - Severe sepsis without septic shock (9) Metabolic acidosis ICD Code: E87.2 - Acidosis Status: Acute (10) Hypoglycemia ICD Code: E16.2 - Hypoglycemia, unspecified Status: Acute (11) Cardiomegaly ICD Code: I51.7 - Cardiomegaly Status: Acute Assessment and Plan Neuro/Psych: Chronic pain syndrome Status post removal of lumbar/sacral L5/S1 hardware 06/19 Chronic opioid use Awake Acetaminophen 650 mg every 6 hours as needed for temperature greater than 101.5 Cyclobenzaprine 10 mg 3 times daily as needed muscle relaxant Morphine sulfate 15 mg every 4 hours as needed pain currently being held Respiratory: Acute hypercapnic respiratory failure -improving Mild pulmonary hypertension COPD/asthma Continue with oxygen keep sats >92% Ipratropium aerosols every 6 hours Albuterol allergy NIPPV PRN for resp distress Completed 48 hours of dexamethasone Cardiovascular: A. fib RVR-resolved History of essential hypertension Chronic systolic congestive heart failure Chronic atrial fibrillation Monitor HR and BP keep MAP>65mmHg Change Cardizem 60 mg Q6, add Lopressor 25mg Q12 08/05 Echo- The left ventricular systolic function is moderately reduced with an EF 40-45%. Dyskinetic apical cap wall motion. The right ventricle is moderately dilated. Moderate mitral valve regurgitation. Aortic valve sclerosis is present. There is mild to moderate tricuspid valve regurgitation. There is estimated mild pulmonary hypertension present (range 40-50 mmHg). Home medications include isosorbide dinitrate 30 mg daily, metoprolol succinate 50 mg daily lisinopril 2.5 mg daily. These are currently on hold On Coumadin per pharmacy Renal: Acute renal insufficiency incentive chronic kidney disease stage IV Right renal stone/no hydronephrosis Monitor renal function, I/O's, electrolytes replacement per protocol Will need K replacement today FEN/GI: Speech eval, diet per speech Famotidine 10 mg twice daily for GI prophylaxis. Docusate sodium/senna 1 tablet twice daily, lactulose 30 cc twice daily for bowel regimen Heme/ID: Anemia of chronic disease Thrombocytopenia Leukocytosis MRSA Discitis Chronic warfarin use Funguria Continue Aztreonam, daptomycin. ID is following Coumadin per pharmacy Medical records release obtained for medical records at [facility]/[place] and [facility] - The patient has a history of recent surgery at [facility] in [place]. She underwent removal of hardware from the lumbosacral spine L1-S1 because of exposed loosened hardware from prior surgery. She reportedly had surgery of the lumbosacral spine 10 years prior. The surgery at [facility] was on 06/27. Intraoperative culture reportedly had MRSA. She was put on antibiotics by infectious disease to complete on 07/29/2017. She was receiving intravenous vancomycin. The patient completed the course of the vancomycin. There is a notation in the medical record that she is ALLERGIC TO VANCOMYCIN. She is currently on daptomycin. She continues with a drainage catheter in the lumbosacral region from prior surgery. She was seen by infectious disease physician at [facility] and reportedly will be in need of IV antibiotics for 6 weeks because of osteomyelitis of the lumbar spine. 08/06 UTI -Denise-fluconazole 200mg/d 08/04- Blood Cultures -NGTD Endocrine: Glucose monitoring per ICU protocol -- SSI Prophylaxis: GI Prophylaxis Famotidine BID DVT Prophylaxis -- SCDs -- INR 2.4 today Lines: PICC line Palliative care is following Level 2 follow-up Humberto Calabrese MD August 16, 2017 09:42
[2017-08-16] MEDS ORDERED: SODIUM PHOSPHATE INJ 30 MMOL in SODIUM CHLOR 0.9% 250 ML INJ 240 ML IV PRN (09:45)
[2017-08-16] MEDS ORDERED: POTASSIUM PHOSPHATE MONOBASIC 500 MG TAB PO/TUBE PRN (09:45)
[2017-08-16] MEDS ORDERED: MAGNESIUM SULFATE INJ 2 GM in SODIUM CHLORIDE 0.9% INJ 96 ML IV PRN (09:45)
[2017-08-16] MEDS ORDERED: POTASSIUM CHLORIDE 25 MEQ EFFERVESCENT TAB PO PRN (09:45)
[2017-08-16] MEDS ORDERED: POTASSIUM CHLOR 20 MEQ PREMIX 100 ML IV PRN (09:45)
[2017-08-16] MEDS ORDERED: MAGNESIUM SULFATE INJ 4 GM in SODIUM CHLORIDE 0.9% INJ 92 ML IV PRN (09:45)
[2017-08-16] MEDS ORDERED: POTASSIUM PHOSPHATE MONOBASIC 500 MG TAB PO PRN (09:45)
[2017-08-16] MEDS ORDERED: POTASSIUM PHOSPHATE INJ 30 MMOL in SODIUM CHLOR 0.9% 250 ML INJ 250 ML IV PRN (09:45)
[2017-08-16] MEDS ORDERED: MAGNESIUM OXIDE 400 MG TAB PO PRN (09:45)
[2017-08-16] MEDS ORDERED: POTASSIUM CHLOR 40 MEQ PREMIX 100 ML IV PRN ×2 (09:45)
[2017-08-16] MEDS: METOPROLOL TARTRATE 25 MG TAB PO SCH ×2 (10:43→21:35)
[2017-08-16] MEDS: POTASSIUM CHLOR 20 MEQ PREMIX 100 ML IV PRN ×3 (10:43→14:43)
[2017-08-16] MEDS: DAPTOmycin INJ 500 MG in SODIUM CHLORIDE 0.9% INJ 100 ML IV SCH (10:44)
--- NOTE | 2017-08-16 13:13 | HHI.IDPN ---
Note Infectious Disease Note Patient was extubated 08/14. She is on 4 L O2 via nasal cannula. She is awake. She is panting. "I can't breathe" Breathing treatment has been ordered. O2 saturation is 97 %. Denies chest pain. Afebrile. 76-year-old white female who presented to the Emergency Department from halfway facility with respiratory distress. She was noted to be complaining also of chest discomfort. The patient was intubated and is currently on a ventilator. In the emergency department, the patient had heart rate of 144, temperature 100.9 and respiratory rate of 53. Lactic acid level was 9.4. She was recently diagnosed with acute renal failure at [facility] and was transferred to a halfway facility upon discharge there on 08/02/2017 . Evaluated at [facility] for altered mental status and also acute kidney disease. The patient has a history of recent surgery at [facility] in [place]. She underwent removal of hardware from the lumbosacral spine L4-S1 because of exposed loosened hardware from prior surgery. She reportedly had surgery of the lumbosacral spine 10 years prior. The surgery at [facility] was on 06/27. Intraoperative culture reportedly had MRSA. She was put on antibiotics by infectious disease to complete on 07/29/2017. She was receiving intravenous vancomycin. She was seen by infectious disease physician at [facility] where she was noted to have acute renal failure. 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 PAST MEDICAL HISTORY: 1. L4-S1 fusion. Recent hardware removal. 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 The patient noted to have loosened hardware 2. Atrial fibrillation. 3. COPD, 4. Plasmacytoma, 5. Anemia, 6. Osteoarthritis, 7. Appendectomy, 8. Hysterectomy, 9. Tonsillectomy, 10. Cholecystectomy, 11. Gastroesophageal reflux disease surgery. ALLERGIES: VANCOMYCIN, ALBUTEROL, GABAPENTIN, IPRATROPIUM, IRON, PENICILLIN G, PROCHLORPERAZINE Antibiotics: Aztreonam. Daptomycin. Diflucan. Current Medications Medications (Trade) Dose Ordered Sig/Jayne Route PRN Reason Start Time Stop Time Status Last Admin Dose Admin Metoprolol Tartrate (Lopressor Inj) 5 mg Q5M PRN IV PUSH HR > 100 08/03/17 16:45 08/15/17 03:21 Ascorbic Acid (Vitamin C) 500 mg DAILY PO 08/04/17 09:00 08/16/17 09:17 Cyclobenzaprine HCl (Flexeril) 10 mg Q8HR PRN PO Muscle Cramps 08/03/17 19:45 08/15/17 16:00 Fluticasone Propionate (Flonase Harvey Spr) 1 spray Q12HR EACH NARE 08/03/17 21:00 Future Hold 08/07/17 09:08 Morphine Sulfate (Msir) 15 mg Q4H PRN PO Moderate Pain 08/03/17 19:45 Future Hold Sodium Chloride (NS Flush) 10 ml Q8HR IV FLUSH 08/03/17 22:00 08/16/17 06:21 Zinc Sulfate (Zinc Sulfate) 220 mg DAILY PO 08/04/17 09:00 08/16/17 09:17 Sodium Chloride (NS Flush) 2 ml UNSCH PRN IV FLUSH FLUSH AFTER USING IV ACCESS 08/03/17 20:00 08/13/17 01:41 Sodium Chloride (NS Flush) 2 ml BID IV FLUSH 08/03/17 21:00 08/16/17 09:19 Morphine Sulfate (Morphine Inj) 2 mg Q2H PRN IV PUSH PAIN SCALE 6 TO 10 08/03/17 20:00 Future Hold 08/04/17 05:14 Ondansetron HCl (Zofran Inj) 4 mg Q6H PRN IV PUSH NAUSEA OR VOMITING 08/03/17 20:00 Miscellaneous Information ([facility] [place] [place] Nursing Information) 1 [id number] XX 08/03/17 20:00 08/03/17 22:46 Chlorhexidine Gluconate (Chlorhexidine 2% Cloth) Taper DAILY@04 TOP 08/04/17 04:00 07/31/18 03:59 08/08/17 05:11 Chlorhexidine Gluconate (Chlorhexidine 2% Cloth) 3 pack UNSCH PRN TOP HYGIENIC CARE 08/03/17 20:00 Senna/Docusate Sodium (Dina-Colace) 1 tab BID PO 08/03/17 21:00 08/16/17 09:17 Magnesium Hydroxide (Milk Of Magnesia Liq) 30 ml Q12H PRN PO Mild constipation 08/03/17 20:00 Sennosides (Senokot) 17.2 mg Q12H PRN PO Moderate constipation 08/03/17 20:00 Bisacodyl (Dulcolax Supp) 10 mg DAILY PRN RECTAL SEVERE CONSITIPATION 08/03/17 20:00 Lactulose (Lactulose Liq) 30 ml DAILY PRN PO SEVERE CONSITIPATION 08/03/17 20:00 Pharmacy Profile Note 0 ml @ 0 mls/hr UNSCH OTHER 08/04/17 03:45 Chlorhexidine Gluconate (Peridex 0.12% Liq) 15 ml BID@08,20 MT 08/04/17 20:00 08/16/17 09:18 Ipratropium [place] (Atrovent Neb) 0.5 mg Q6HR NEB NEB 08/04/17 16:00 08/14/17 16:08 Aztreonam 1000 mg/ Sodium Chloride 100 ml @ 200 mls/hr Q12H IV 08/04/17 17:00 08/16/17 05:00 Daptomycin 500 mg/ Sodium Chloride 100 ml @ 200 mls/hr Q48H IV 08/06/17 11:00 08/16/17 10:44 Famotidine (Pepcid) 10 mg BID PO 08/05/17 21:00 08/16/17 09:17 Artificial Tears (Tears Naturale Opth Soln) 1 drop Q8HR EACH EYE 08/07/17 14:00 08/16/17 06:21 Acetaminophen (Tylenol 650 Mg/ 20 ml Liq) 650 mg Q6H PRN PO fever 08/07/17 14:00 Mupirocin (Bactroban Nasal 2% Oint) Taper BID EACH NARE 08/07/17 21:00 08/03/18 20:59 08/16/17 09:17 Lactulose (Lactulose Liq) 30 ml Q12HR PO 08/07/17 21:00 08/16/17 09:17 Labetalol HCl (Trandate Inj) 10 mg Q1HR PRN IV PUSH SBP>170, DBP>90, HR>65 08/08/17 15:15 08/16/17 09:29 Hydralazine HCl (Apresoline Inj) 10 mg Q1HR PRN IV PUSH SBP>170, DBP>90 08/08/17 15:15 08/13/17 01:41 Nitroglycerin (Nitroglycerin 2% Oint) 2 inch Q6HR PRN TOPICAL SBP>170, DBP>90 08/08/17 15:15 Morphine Sulfate (Roxanol Liq) 10 mg Q4H PRN PO pain 5-10 08/12/17 14:15 08/15/17 20:24 Miscellaneous (Pill Splitter) 1 ea UNSCH PRN OTHER SEE LABEL COMMENTS 08/13/17 14:15 Dextrose (D50w (Vial) Inj) 50 ml UNSCH PRN IV PUSH HYPOGLYCEMIA-SEE COMMENTS 08/15/17 16:00 Glucagon (Glucagon Inj) 1 mg UNSCH PRN OTHER HYPOGLYCEMIA-SEE COMMENTS 08/15/17 16:00 Insulin Human Regular (NovoLIN R SUPPLEMENTAL SCALE) 1 Q4HR SQ 08/15/17 16:00 Warfarin Sodium (Coumadin) 0.5 mg ONCE@1600 ONCE PO 08/16/17 16:00 08/16/17 16:01 Warfarin Sodium (Coumadin) 1 mg DAILY@1600 PO 08/17/17 16:00 Diltiazem HCl (Cardizem) 60 mg Q6HR PO 08/16/17 12:00 08/16/17 12:55 Metoprolol Tartrate (Lopressor) 25 mg Q12HR PO 08/16/17 10:00 08/16/17 10:43 Potassium Chloride 100 ml @ 50 mls/hr Q2H PRN IV For Potassium 2.8 - 3.2 mEq/L 08/16/17 09:45 Potassium Chloride 100 ml @ 50 mls/hr Q2H PRN IV For Potassium 2.8 - 3.2 mEq/L 08/16/17 09:45 08/16/17 10:43 Potassium Bicarb/ Potassium Chloride (K-Lyte Cl Eff) 50 meq UNSCH PRN PO For Potassium 3.3 - 3.5 mEq/L 08/16/17 09:45 Potassium Chloride 100 ml @ 25 mls/hr UNSCH PRN IV For Potassium 3.3 - 3.5 mEq/L 08/16/17 09:45 Potassium Chloride 100 ml @ 50 mls/hr Q2H PRN IV For Potassium 3.3 - 3.5 mEq/L 08/16/17 09:45 Magnesium Sulfate 4 gm/Sodium Chloride 100 ml @ 50 mls/hr UNSCH PRN IV For Magnesium 0.9 - 1.1 mg/dL 08/16/17 09:45 Magnesium Oxide (Mag-Ox) 800 mg UNSCH PRN PO For Magnesium 1.2 - 1.6 mg/dL 08/16/17 09:45 Magnesium Sulfate 2 gm/Sodium Chloride 100 ml @ 50 mls/hr UNSCH PRN IV For Magnesium 1.2 - 1.6 mg/dL 08/16/17 09:45 Potassium Phosphate (K-Phos) 2,000 mg Q4H PRN PO For Phosphorus < 2.5 mg/dL 08/16/17 09:45 Sodium Phosphate 30 mmol/Sodium Chloride 250 ml @ 42 mls/hr UNSCH PRN IV For Phosphorus < 2.5 mg/dL 08/16/17 09:45 Potassium Phosphate (K-Phos) 2,000 mg UNSCH PRN PO/TUBE SEE LABEL COMMENTS 08/16/17 09:45 Potassium Phosphate 30 mmol/ Sodium Chloride 260 ml @ 42 mls/hr UNSCH PRN IV SEE LABEL COMMENTS 08/16/17 09:45 Objective: Vital Signs Date Time Temp Pulse Resp B/P (MAP) Pulse Ox O2 Delivery O2 Flow Rate FiO2 08/16/17 12:00 96 08/16/17 12:00 97.6 92 31 173/82 (112) 97 08/16/17 11:00 88 34 152/76 (101) 94 08/16/17 10:00 85 08/16/17 10:00 80 30 152/72 (98) 98 08/16/17 09:33 85 37 137/71 (93) 95 08/16/17 09:26 113 40 179/90 (119) 95 08/16/17 09:00 105 38 170/81 (110) 94 08/16/17 08:00 97.8 93 32 169/81 (110) 98 08/16/17 08:00 96 08/16/17 07:26 100 40 08/16/17 07:00 98 37 162/85 (110) 98 08/16/17 06:00 97 08/16/17 04:02 98 40 08/16/17 04:00 97.1 98 28 163/81 (108) 97 08/16/17 04:00 98 08/16/17 02:00 88 08/16/17 00:27 97 40 08/16/17 00:00 88 08/16/17 00:00 97.2 88 30 154/72 (99) 96 08/15/17 22:00 99 08/15/17 21:24 30 08/15/17 20:00 96.7 92 31 152/79 (103) 96 08/15/17 20:00 92 08/15/17 19:44 95 BiPAP 40 08/15/17 19:43 95 40 08/15/17 18:00 93 08/15/17 18:00 93 30 162/78 (106) 94 08/15/17 17:00 95 08/15/17 17:00 95 30 160/81 (107) 93 08/15/17 16:00 92 08/15/17 16:00 98.0 92 33 153/75 (101) 97 08/15/17 15:00 91 35 167/79 (108) 100 08/15/17 15:00 91 08/15/17 14:00 83 33 162/77 (105) 100 08/15/17 14:00 83 Laboratory Tests Test 08/15/17 08:38 08/16/17 04:46 White Blood Count 11.6 TH/MM3 11.0 TH/MM3 Red Blood Count 2.86 MIL/MM3 2.84 MIL/MM3 Hemoglobin 9.0 GM/DL 9.2 GM/DL Hematocrit 28.0 % 27.2 % Mean Corpuscular Volume 97.9 FL 95.7 FL Mean Corpuscular Hemoglobin 31.6 PG 32.2 PG Mean Corpuscular Hemoglobin Concent 32.3 % 33.7 % Red Cell Distribution Width 17.7 % 17.1 % Platelet Count 321 TH/MM3 414 TH/MM3 Mean Platelet Volume 8.2 FL 8.0 FL Neutrophils (%) (Auto) 93.6 % 91.9 % Lymphocytes (%) (Auto) 2.3 % 2.7 % Monocytes (%) (Auto) 2.8 % 3.7 % Eosinophils (%) (Auto) 1.1 % 1.4 % Basophils (%) (Auto) 0.2 % 0.3 % Neutrophils # (Auto) 10.9 TH/MM3 10.1 TH/MM3 Lymphocytes # (Auto) 0.3 TH/MM3 0.3 TH/MM3 Monocytes # (Auto) 0.3 TH/MM3 0.4 TH/MM3 Eosinophils # (Auto) 0.1 TH/MM3 0.2 TH/MM3 Basophils # (Auto) 0.0 TH/MM3 0.0 TH/MM3 CBC Comment AUTO DIFF DIFF FINAL Differential Total Cells Counted 100 Neutrophils % (Manual) 84 % Band Neutrophils % 11 % Monocytes % 2 % Neutrophils # (Manual) 11.4 TH/MM3 Metamyelocytes 3 % Differential Comment FINAL DIFF MANUAL Toxic Granulation 2+ Platelet Estimate NORMAL Platelet Morphology Comment ENLARGED Red Cell Morphology Comment NORMAL Laboratory Tests Test 08/15/17 08:38 08/16/17 04:46 Blood Urea Nitrogen 46 MG/DL 40 MG/DL Creatinine 1.04 MG/DL 0.95 MG/DL Random Glucose 98 MG/DL 81 MG/DL Total Protein 7.9 GM/DL 8.0 GM/DL Albumin 2.5 GM/DL 2.5 GM/DL Calcium Level 8.7 MG/DL 8.5 MG/DL Phosphorus Level 3.5 MG/DL 3.2 MG/DL Magnesium Level 1.6 MG/DL 1.5 MG/DL Alkaline Phosphatase 107 U/L 112 U/L Aspartate Amino Transf (AST/SGOT) 39 U/L 41 U/L Alanine Aminotransferase (ALT/SGPT) 91 U/L 80 U/L Total Bilirubin 1.4 MG/DL 1.2 MG/DL Sodium Level 140 MEQ/L 142 MEQ/L Potassium Level 3.5 MEQ/L 3.0 MEQ/L Chloride Level 103 MEQ/L 104 MEQ/L Carbon Dioxide Level 25.9 MEQ/L 25.7 MEQ/L Anion Gap 11 MEQ/L 12 MEQ/L Estimat Glomerular Filtration Rate 52 ML/MIN 57 ML/MIN Imaging: Chest X-Ray 08/15/17 0600 Signed Impressions: Service Date/Time: Tuesday, August 15, 2017 05:18 - CONCLUSION: 1. Stable patchy basilar airspace disease and pleural thickening. Endotracheal tube and nasogastric tube unchanged. Fareed Masterson MD Chest X-Ray 08/11/17 0600 Signed Impressions: Service Date/Time: August 03:16 - CONCLUSION: Mild interval improvement in bilateral airspace disease with significant residual. Epifanio Sweeney MD Chest X-Ray 08/09/17 0000 Signed Impressions: Service Date/Time: Wednesday, August 09, 2017 11:34 - CONCLUSION: 1. Bilateral airspace disease with possibly some improving aeration in the lung bases. 2. Stable cardiomegaly. Stable position of life support tubes. 3. Stable calcifications overlying the soft tissues of the shoulders symmetrically and bilaterally. Findings are nonspecific and can represent entities such as dystrophic soft tissue calcifications, idiopathic tumoral calcinosis myositis ossificans as well as scleroderma and dermatomyositis. Findings are overtly benign, however Rogelio Santos MD Chest X-Ray 08/05/17 0600 Signed Impressions: Service Date/Time: Saturday, August 05, 2017 04:54 - CONCLUSION: Normal placement of nasogastric tube. Grossly stable aeration Sterling Aguilar MD Lumbar Spine CT 08/04/17 0000 Signed Impressions: Service Date/Time: August 13:46 - CONCLUSION: 1. There is low density in the soft tissues at the recent laminectomy site L4-L5 measuring up to 2.4 cm in thickness with out deformity of the posterior thecal sac at the laminectomy site. 2. Stable anterolisthesis at L5-S1 with bony fusion. 3. 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 Maykel Singh MD Abdomen/Pelvis CT 08/04/17 0000 Signed Impressions: Service Date/Time: August 13:46 - CONCLUSION: 1. There is stool diffusely throughout the colon suggesting constipation. 2. The solid organs of the abdomen are grossly intact. 3. No free air free fluid seen within the abdomen. No abscess is identified. 4. Small amount of free fluid within the abdomen. 5. Bilateral pleural effusions and consolidation. 6. Cardiomegaly. 7. 2 mm nonobstructing stone in the lower pole collecting system of the right kidney. 8. Anasarca. Mil Toro MD Abdomen Fluoroscopy 08/04/17 0000 Signed Impressions: Service Date/Time: August 17:00 - CONCLUSION: Uncomplicated nasoenteric suction type catheter (NGT) placement as above. Librado Hernandez MD PHYSICAL EXAMINATION: GENERAL: Awake and alert. HEENT: Extraocular movements intact. No icterus. Mucosa appears moist. NECK: No swelling or adenopathy. LUNGS: Coarse breath sounds. HEART: Irregular S1 and S2. No audible murmurs, rubs or gallops. ABDOMEN: Slightly distended, soft, normal bowel sounds. BACK: KAY drainage catheter in place. Right serous drainage in the bulb. EXTREMITIES: No clubbing, cyanosis. 2+ edema of the upper extremities. SKIN: No rash. NEUROLOGIC: Unable to fully assess. PSYCHIATRIC: Pleasant. Calm and cooperative. IMPRESSION: 1. Septic shock. Improved. 2. Acute hypercapnic respiratory failure. Extubated. Still continues to feel somewhat short of breath. Receives intermittent BiPAP. 3. Acute renal failure. Improving 4. Shock liver, probably from sepsis. LFTs improving. 5. Lung infiltrate. Including thickening. 6. Osteomyelitis of the lumbar spine. Patient was placed on IV antibiotics By ID at [facility]. The patient is status post hardware removal from the lumbar spine and noted to have methicillin-resistant Staph aureus on culture. She received a course of IV vancomycin which was completed on 07/29/2017. 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 Has drain in place at the lumbar spine. She was due to have an appointment at [facility] in [place] later this month to assess the lumbar wound and possibly remove the lumbar drainage catheter. 6. Candiduria. RECOMMENDATIONS: 1. Continue the Daptomycin at q 48 hour interval. Check CPK. If CPKs within normal range change of daptomycin every 24 hours. 2. Stop Azactam. 3. Monitor pulmonary status. Monitor the clinical status. Dion Wing MD August 16, 2017 13:13
[2017-08-16] MEDS ORDERED: WARFARIN SOD 1 MG TAB PO ONE (16:00)
[2017-08-16] MEDS: MORPHINE SULFATE ORAL SOLN 10 MG/0.5 ML SYRINGE PO PRN (21:39)
[2017-08-17] VITALS (16 sets, daily range): BP systolic 136–174; BP diastolic 63–93; PULSE 68–99; RESP 29–37; TEMP 97.8–99.4; O2SAT 96–100
[2017-08-17] MEDS: DILTIAZEM HCL 60 MG TAB PO SCH ×4 (01:03→17:51)
[2017-08-17] MEDS: CHLORHEXIDINE GLUCONATE 2 % 1 PACK (2 CLOTHS) TOP SCH (04:00)
[2017-08-17] MEDS: RESP: IPRATROPIUM 0.5 MG/2.5 ML NEB NEB SCH ×4 (04:00→21:39)
[2017-08-17] MEDS: INSULIN NovoLIN REGULAR SUPPLEMENTAL SCALE SQ SCH ×7 (04:00→23:45)
[2017-08-17] MEDS: SODIUM CHLORIDE 0.9% FLUSH 10 ML FLUSH IV FLUSH SCH ×5 (06:51→20:35)
[2017-08-17] MEDS: ARTIFICIAL TEARS OPTH SOLN 15 ML BTL EACH EYE SCH ×3 (06:51→20:35)
[2017-08-17] MEDS: CHLORHEXIDINE 0.12% (ORAL KIT) 15 ML CUP MT SCH ×2 (08:00→20:00)
[2017-08-17] MEDS: MORPHINE SULFATE ORAL SOLN 10 MG/0.5 ML SYRINGE PO PRN ×5 (08:01→16:39)
[2017-08-17] MEDS: MUPIROCIN 2% OINT 1 APPLIC/GM SYR EACH NARE SCH ×2 (08:02→20:35)
[2017-08-17] MEDS: FAMOTIDINE 20 MG TAB PO SCH ×2 (08:03→20:35)
[2017-08-17] MEDS: LACTULOSE SYRUP 20 GM/30 ML CUP PO SCH ×2 (08:03→20:35)
[2017-08-17] MEDS: ZINC SULFATE 220 MG CAP PO SCH (08:04)
[2017-08-17] MEDS: METOPROLOL TARTRATE 25 MG TAB PO SCH (08:04)
[2017-08-17] MEDS: DOCUSATE SODIUM 50 MG/SENNA 8.6 MG TAB PO SCH ×2 (08:04→20:34)
[2017-08-17] MEDS: ASCORBIC ACID 500 MG TAB PO SCH (08:04)
--- NOTE | 2017-08-17 10:03 | HHI.CCPN ---
Subjective Remarks/Hospital Course 76[facility]year-old [facility] presents with complaints of respiratory difficulty. Onset was today. She is also complaining with some chest discomfort. She denies productive cough. Her symptoms are moderate to severe with no exacerbating factors. This patient was reportedly just discharged from [facility] with discitis secondary to MRSA. 53: Afebrile. Early this a.m. patient still having respiratory difficulty noted metabolic acidosis with a bicarb level 13, sodium bicarbonate infusion continues. She noticed to have respiratory distress ABGs performed. Impending intubation 7.10. Patient noted to have KAY drain emanating from back with dressing taken down no area redness yellow fluid and KAY drain sent for wound culture analysis. Upon further investigation patient's brother at bedside patient had lumbar hardware removed from [facility] in [place] approximately 6 weeks ago secondary to hardware eroding through the back and could be visualized on site. 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 Gottlieb cultures are pending. Attempts at medical record release forms from [facility] are pending. Patient previously last week at [facility] for acute kidney injury/urinary tract infection, attempting to obtain medical record. Patient was discharged approximately 2-3 days ago per report. This a.m. patient went into A. fib RVR with a heart rate in the 150s patient was given metoprolol 2 doses heart rate 112, patient is known to have chronic atrial fibrillation previously on Cardizem and digoxin 0.125 IV 1 dose Cardizem reinitiated. Discussion with patient regarding intubation and patient' s brother at bedside patient desires aggressive measures be undertaken patient requests intubation if needed and to remain a full code. Noted open areas skin wound areas on the lower extremities well-healed skin graft site left thigh wound care has been consulted. Palliative care also has been consulted to define goals of care. 08/05: Patient noted with elevated INR, Coumadin has been discontinued for 2 days. Vitamin K ordered. No active signs of bleeding. Patient on sedation vacation following commands. Afib rate controlled 70's-80's since addition to p.o. Cardizem. 6: Patient is currently on PSV trial FiO2 35%. Minimal secretions. Tolerating tube feeds. No bowel movement yesterday. Follows commands. 08/08: Temperature currently 98.8. Adequate weaning parameters however no cough leak. We will give dexamethasone 1 day and recheck cuff leak in a.m. Awake and follows commands. Transaminases normalized. Creatinine continues to slowly rise. 08/09: No events overnight. Patient is lethargic, easily arousable, tolerating CPAP at 10/5. T-max of 99.9. Still no cuff leak. Urine output is appropriate , with 3650 mL's over the last 24 hours. No family present at bedside. 08/10: No events over the night. Patient is awake, complaining of back pain, on fentanyl at 150 mics/hr. Tolerating CPAP 15/5. Afebrile over the night, with a T-max of 98.8. Negative fluid balance over the last 24 hours, -500 cc. 08/11: Patient remains intubated and sedated. She did well over the night. T- max of 98.6. She continues to be on fentanyl drip for back pain, asleep, easily arousable, follows commands. 08/12: No events over the night. Patient remains intubated, on fentanyl drip, easily arousable, following commands. Great response to diuretics, more than 3600 mL's urine output. Patient tolerated CPAP well yesterday but after being cleaned she developed tachycardia and tachypnea requiring full support. T-max of 99.3. 08/13: No events over the night. T-max of 98.6. She responded great to diuresis post Lasix, negative more than 3.3 L over the last 24 hours. She remains on fentanyl drip, lethargic, easily arousable. Oxygenation is unchanged. Chest x-ray reviewed, ET tube is in good position, 3 cm above paulo , unchanged bilateral opacities. 08/14: Patient remains intubated, on fentanyl infusion at 250 mcg/hour. T-max of 99.7. Negative almost 1 L over last 24 hours. Being but easily arousable, denies any complaints. On CPAP 12/5 tolerating well. 08/15 Patient is lying in bed in NAD. On BIPAP 01/09 with 50% FIO2. Afebrile. s/p extubation yesterday. 08/16 Patient was placed on BIPAP overnight. Afebrile 08/17 Patient is on 5L oxygen, afebrile. Objective Vital Signs Date Time Temp Pulse Resp B/P (MAP) Pulse Ox O2 Delivery O2 Flow Rate FiO2 08/17/17 08:00 97.9 82 33 166/77 (106) 100 08/17/17 07:55 Nasal Cannula 5.00 08/17/17 05:02 40 Intake and Output 08/17/17 08/17/17 08/18/17 08:00 16:00 00:00 Output Total 1015 ml Balance -1015 ml Result Diagram: 08/16/17 0446 08/16/17 2238 Other Results Laboratory Tests Test 08/16/17 22:38 Potassium Level 3.7 MEQ/L Imaging Last Impressions Chest X-Ray 08/15/17 0600 Signed Impressions: Service Date/Time: Tuesday, August 15, 2017 05:18 - CONCLUSION: 1. Stable patchy basilar airspace disease and pleural thickening. Endotracheal tube and nasogastric tube unchanged. Fareed Masterson MD Lumbar Spine CT 08/04/17 0000 Signed Impressions: Service Date/Time: August 13:46 - CONCLUSION: 1. There is low density in the soft tissues at the recent laminectomy site L4-L5 measuring up to 2.4 cm in thickness with out deformity of the posterior thecal sac at the laminectomy site. 2. Stable anterolisthesis at L5-S1 with bony fusion. 3. 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 Maykel Singh MD Abdomen/Pelvis CT 08/04/17 0000 Signed Impressions: Service Date/Time: August 13:46 - CONCLUSION: 1. There is stool diffusely throughout the colon suggesting constipation. 2. The solid organs of the abdomen are grossly intact. 3. No free air free fluid seen within the abdomen. No abscess is identified. 4. Small amount of free fluid within the abdomen. 5. Bilateral pleural effusions and consolidation. 6. Cardiomegaly. 7. 2 mm nonobstructing stone in the lower pole collecting system of the right kidney. 8. Anasarca. Mil Toro MD Abdomen Fluoroscopy 08/04/17 0000 Signed Impressions: Service Date/Time: August 17:00 - CONCLUSION: Uncomplicated nasoenteric suction type catheter (NGT) placement as above. Librado Hernandez MD Procedures 08/04 -placement of NG tube IR Objective Remarks GENERAL: Patient is 76 yo lying in bed in NAD SKIN: Warm and dry. HEAD: Normocephalic. EYES: No scleral icterus. No injection or drainage. NECK: Supple, trachea midline. No JVD or lymphadenopathy. CARDIOVASCULAR: Regular rate and rhythm without murmurs, gallops, or rubs. RESPIRATORY: Breath sounds equal bilaterally. No accessory muscle use. GASTROINTESTINAL: Abdomen soft, non-tender, nondistended. MUSCULOSKELETAL: No cyanosis, or edema. Neuro: Awake Date of Insertion: August 04, 2017 A/P Problem List: (1) Afib ICD Code: I48.91 - Unspecified atrial fibrillation Status: Acute (2) EMIR (acute kidney injury) ICD Code: N17.9 - Acute kidney failure, unspecified Status: Acute (3) CKD (chronic kidney disease) stage 4, GFR 15-29 ml/min ICD Code: N18.4 - Chronic kidney disease, stage 4 (severe) Status: Acute (4) Renal insufficiency ICD Code: N28.9 - Disorder of kidney and ureter, unspecified Status: Acute (5) Chronic pain ICD Code: G89.29 - Other chronic pain Status: Acute (6) Atrial fibrillation with RVR ICD Code: I48.91 - Unspecified atrial fibrillation Status: Acute (7) Hyperkalemia ICD Code: E87.5 - Hyperkalemia Status: Acute (8) Severe sepsis ICD Code: A41.9 - Sepsis, unspecified organism; R65.20 - Severe sepsis without septic shock (9) Metabolic acidosis ICD Code: E87.2 - Acidosis Status: Acute (10) Hypoglycemia ICD Code: E16.2 - Hypoglycemia, unspecified Status: Acute (11) Cardiomegaly ICD Code: I51.7 - Cardiomegaly Status: Acute Assessment and Plan Neuro/Psych: Chronic pain syndrome Status post removal of lumbar/sacral L5/S1 hardware 06/19 Chronic opioid use Awake Acetaminophen 650 mg every 6 hours as needed for temperature greater than 101.5 Cyclobenzaprine 10 mg 3 times daily as needed muscle relaxant Morphine sulfate 15 mg every 4 hours as needed pain currently being held Respiratory: Acute hypercapnic respiratory failure -improving Mild pulmonary hypertension COPD/asthma Continue with oxygen keep sats >92% Ipratropium aerosols every 6 hours Albuterol allergy NIPPV PRN for resp distress Completed 48 hours of dexamethasone Cardiovascular: A. fib RVR-resolved History of essential hypertension Chronic systolic congestive heart failure Chronic atrial fibrillation Monitor HR and BP keep MAP>65mmHg On Cardizem 60 mg Q6, increase Lopressor 50mg Q12 08/05 Echo- The left ventricular systolic function is moderately reduced with an EF 40-45%. Dyskinetic apical cap wall motion. The right ventricle is moderately dilated. Moderate mitral valve regurgitation. Aortic valve sclerosis is present. There is mild to moderate tricuspid valve regurgitation. There is estimated mild pulmonary hypertension present (range 40-50 mmHg). Home medications include isosorbide dinitrate 30 mg daily, metoprolol succinate 50 mg daily lisinopril 2.5 mg daily. These are currently on hold On Coumadin per pharmacy Renal: Acute renal insufficiency incentive chronic kidney disease stage IV Right renal stone/no hydronephrosis Monitor renal function, I/O's, electrolytes replacement per protocol Will need K replacement today FEN/GI: On PO diet Famotidine 10 mg twice daily for GI prophylaxis. Docusate sodium/senna 1 tablet twice daily, lactulose 30 cc twice daily for bowel regimen Heme/ID: Anemia of chronic disease Thrombocytopenia Leukocytosis MRSA Discitis Chronic warfarin use Funguria Continue daptomycin. ID is following. CK 66 Coumadin per pharmacy Medical records release obtained for medical records at [facility]/[place] and [facility] - The patient has a history of recent surgery at [facility] in [place]. She underwent removal of hardware from the lumbosacral spine L1-S1 because of exposed loosened hardware from prior surgery. She reportedly had surgery of the lumbosacral spine 10 years prior. The surgery at [facility] was on 06/27. Intraoperative culture reportedly had MRSA. She was put on antibiotics by infectious disease to complete on 07/29/2017. She was receiving intravenous vancomycin. The patient completed the course of the vancomycin. There is a notation in the medical record that she is ALLERGIC TO VANCOMYCIN. She is currently on daptomycin. She continues with a drainage catheter in the lumbosacral region from prior surgery. She was seen by infectious disease physician at [facility] and reportedly will be in need of IV antibiotics for 6 weeks because of osteomyelitis of the lumbar spine. 08/06 UTI -Denise-fluconazole 200mg/d 08/04- Blood Cultures -NGTD Endocrine: Glucose monitoring per ICU protocol -- SSI Prophylaxis: GI Prophylaxis Famotidine BID DVT Prophylaxis -- SCDs -- INR 2.4 08/16 Lines: PICC line Palliative care is following Level 2 follow-up Humberto Calabrese MD August 17, 2017 10:03
[2017-08-17] MEDS: DAPTOmycin INJ 500 MG in SODIUM CHLORIDE 0.9% INJ 100 ML IV SCH (10:34)
[2017-08-17 10:41] LABS: AUTOMATED NEUTROPHIL # 10.2 TH/MM3 (1.8-7.7); BASOPHIL % 0.4 % (0.0-2.0); EOSINOPHIL # 0.3 TH/MM3 (0-0.4); EOSINOPHIL % 2.3 % (0.0-4.0); HEMATOCRIT 26.2 % (35.0-46.0); HEMOGLOBIN 8.7 GM/DL (11.6-15.3); LYMPH % 2.7 % (9.0-44.0); LYMPHOCYTE # 0.3 TH/MM3 (1.0-4.8); MEAN CELL VOLUME 96.4 FL (80.0-100.0); MEAN CORPUSCULAR HEMOGLOBIN 31.8 PG (27.0-34.0); MEAN PLATELET VOLUME 8.1 FL (7.0-11.0); MONO % 6.3 % (0.0-8.0); MONOCYTE # 0.7 TH/MM3 (0-0.9); NEUT % 88.3 % (16.0-70.0); PLATELET COUNT 481 TH/MM3 (150-450); RED BLOOD COUNT 2.72 MIL/MM3 (4.00-5.30); RED CELL DISTRIBUTION WIDTH 17.4 % (11.6-17.2); WHITE BLOOD COUNT 11.6 TH/MM3 (4.0-11.0)
[2017-08-17 10:58] LABS: INTERNATIONAL NORMALIZED RATIO 3.6 RATIO
[2017-08-17 11:04] LABS: BICARBONATE 30.2 MEQ/L (21.0-32.0); CALCIUM 8.4 MG/DL (8.5-10.1); CREATININE 0.8 MG/DL (0.50-1.00); MAGNESIUM 1.6 MG/DL (1.5-2.5); PHOSPHORUS 2.3 MG/DL (2.5-4.9)
[2017-08-17] MEDS: LABETALOL HCL 100 MG/20 ML VIAL IV PUSH PRN (11:35)
--- NOTE | 2017-08-17 12:26 | HHI.IDPN ---
Note Infectious Disease Note Patient is awake and interactive. Comfortable. She notes pain in her back. States that her breathing is better. O2 saturation is 93% on nasal cannula. Afebrile. Patient was extubated 08/14. 76-year-old white female who presented to the Emergency Department from [facility] with respiratory distress. She was noted to be complaining also of chest discomfort. The patient was intubated and is currently on a ventilator. In the emergency department, the patient had heart rate of 144, temperature 100.9 and respiratory rate of 53. Lactic acid level was 9.4. She was recently diagnosed with acute renal failure at [facility] and was transferred to a [facility] facility upon discharge there on 08/02/2017 . Evaluated at [facility] for altered mental status and also acute kidney disease. The patient has a history of recent surgery at [facility] in [place]. She underwent removal of hardware from the lumbosacral spine L4-S1 because of exposed loosened hardware from prior surgery. She reportedly had surgery of the lumbosacral spine 10 years prior. The surgery at [facility] was on 06/27. Intraoperative culture reportedly had MRSA. She was put on antibiotics by infectious disease to complete on 07/29/2017. She was receiving intravenous vancomycin. She was seen by infectious disease physician at [facility] where she was noted to have acute renal failure. 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 PAST MEDICAL HISTORY: 1. L4-S1 fusion. Recent hardware removal. 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 The patient noted to have loosened hardware 2. Atrial fibrillation. 3. COPD, 4. Plasmacytoma, 5. Anemia, 6. Osteoarthritis, 7. Appendectomy, 8. Hysterectomy, 9. Tonsillectomy, 10. Cholecystectomy, 11. Gastroesophageal reflux disease surgery. ALLERGIES: VANCOMYCIN, ALBUTEROL, GABAPENTIN, IPRATROPIUM, IRON, PENICILLIN G, PROCHLORPERAZINE Antibiotics: Daptomycin. Diflucan. Current Medications Medications (Trade) Dose Ordered Sig/Jayne Route PRN Reason Start Time Stop Time Status Last Admin Dose Admin Metoprolol Tartrate (Lopressor Inj) 5 mg Q5M PRN IV PUSH HR > 100 08/03/17 16:45 08/15/17 03:21 Ascorbic Acid (Vitamin C) 500 mg DAILY PO 08/04/17 09:00 08/17/17 08:04 Cyclobenzaprine HCl (Flexeril) 10 mg Q8HR PRN PO Muscle Cramps 08/03/17 19:45 08/15/17 16:00 Fluticasone Propionate (Flonase Harvey Spr) 1 spray Q12HR EACH NARE 08/03/17 21:00 Future Hold 08/07/17 09:08 Morphine Sulfate (Msir) 15 mg Q4H PRN PO Moderate Pain 08/03/17 19:45 Future Hold Sodium Chloride (NS Flush) 10 ml Q8HR IV FLUSH 08/03/17 22:00 08/17/17 06:51 Zinc Sulfate (Zinc Sulfate) 220 mg DAILY PO 08/04/17 09:00 08/17/17 08:04 Sodium Chloride (NS Flush) 2 ml UNSCH PRN IV FLUSH FLUSH AFTER USING IV ACCESS 08/03/17 20:00 08/13/17 01:41 Sodium Chloride (NS Flush) 2 ml BID IV FLUSH 08/03/17 21:00 08/17/17 08:03 Morphine Sulfate (Morphine Inj) 2 mg Q2H PRN IV PUSH PAIN SCALE 6 TO 10 08/03/17 20:00 Future Hold 08/04/17 05:14 Ondansetron HCl (Zofran Inj) 4 mg Q6H PRN IV PUSH NAUSEA OR VOMITING 08/03/17 20:00 Miscellaneous Information ([facility] Nursing Information) 1 Q361D XX 08/03/17 20:00 08/03/17 22:46 Chlorhexidine Gluconate (Chlorhexidine 2% Cloth) Taper DAILY@04 TOP 08/04/17 04:00 07/31/18 03:59 08/08/17 05:11 Chlorhexidine Gluconate (Chlorhexidine 2% Cloth) 3 pack UNSCH PRN TOP HYGIENIC CARE 08/03/17 20:00 Senna/Docusate Sodium (Dina-Colace) 1 tab BID PO 08/03/17 21:00 08/16/17 09:17 Magnesium Hydroxide (Milk Of Magnesia Liq) 30 ml Q12H PRN PO Mild constipation 08/03/17 20:00 Sennosides (Senokot) 17.2 mg Q12H PRN PO Moderate constipation 08/03/17 20:00 Bisacodyl (Dulcolax Supp) 10 mg DAILY PRN RECTAL SEVERE CONSITIPATION 08/03/17 20:00 Lactulose (Lactulose Liq) 30 ml DAILY PRN PO SEVERE CONSITIPATION 08/03/17 20:00 Pharmacy Profile Note 0 ml @ 0 mls/hr UNSCH OTHER 08/04/17 03:45 Chlorhexidine Gluconate (Peridex 0.12% Liq) 15 ml BID@08,20 MT 08/04/17 20:00 08/17/17 08:00 Ipratropium [place] (Atrovent Neb) 0.5 mg Q6HR NEB NEB 08/04/17 16:00 08/14/17 16:08 Famotidine (Pepcid) 10 mg BID PO 08/05/17 21:00 08/17/17 08:03 Artificial Tears (Tears Naturale Opth Soln) 1 drop Q8HR EACH EYE 08/07/17 14:00 08/17/17 06:51 Acetaminophen (Tylenol 650 Mg/ 20 ml Liq) 650 mg Q6H PRN PO fever 08/07/17 14:00 Mupirocin (Bactroban Nasal 2% Oint) Taper BID EACH NARE 08/07/17 21:00 08/03/18 20:59 08/17/17 08:02 Lactulose (Lactulose Liq) 30 ml Q12HR PO 08/07/17 21:00 08/16/17 09:17 Labetalol HCl (Trandate Inj) 10 mg Q1HR PRN IV PUSH SBP>170, DBP>90, HR>65 08/08/17 15:15 08/17/17 11:35 Hydralazine HCl (Apresoline Inj) 10 mg Q1HR PRN IV PUSH SBP>170, DBP>90 08/08/17 15:15 08/13/17 01:41 Nitroglycerin (Nitroglycerin 2% Oint) 2 inch Q6HR PRN TOPICAL SBP>170, DBP>90 08/08/17 15:15 Morphine Sulfate (Roxanol Liq) 10 mg Q4H PRN PO pain 5-10 08/12/17 14:15 08/17/17 10:35 Miscellaneous (Pill Splitter) 1 ea UNSCH PRN OTHER SEE LABEL COMMENTS 08/13/17 14:15 Dextrose (D50w (Vial) Inj) 50 ml UNSCH PRN IV PUSH HYPOGLYCEMIA-SEE COMMENTS 08/15/17 16:00 Glucagon (Glucagon Inj) 1 mg UNSCH PRN OTHER HYPOGLYCEMIA-SEE COMMENTS 08/15/17 16:00 Insulin Human Regular (NovoLIN R SUPPLEMENTAL SCALE) 1 Q4HR SQ 08/15/17 16:00 Diltiazem HCl (Cardizem) 60 mg Q6HR PO 08/16/17 12:00 08/17/17 11:34 Potassium Chloride 100 ml @ 50 mls/hr Q2H PRN IV For Potassium 2.8 - 3.2 mEq/L 08/16/17 09:45 Potassium Chloride 100 ml @ 50 mls/hr Q2H PRN IV For Potassium 2.8 - 3.2 mEq/L 08/16/17 09:45 08/16/17 14:43 Potassium Bicarb/ Potassium Chloride (K-Lyte Cl Eff) 50 meq UNSCH PRN PO For Potassium 3.3 - 3.5 mEq/L 08/16/17 09:45 Potassium Chloride 100 ml @ 25 mls/hr UNSCH PRN IV For Potassium 3.3 - 3.5 mEq/L 08/16/17 09:45 Potassium Chloride 100 ml @ 50 mls/hr Q2H PRN IV For Potassium 3.3 - 3.5 mEq/L 08/16/17 09:45 Magnesium Sulfate 4 gm/Sodium Chloride 100 ml @ 50 mls/hr UNSCH PRN IV For Magnesium 0.9 - 1.1 mg/dL 08/16/17 09:45 Magnesium Oxide (Mag-Ox) 800 mg UNSCH PRN PO For Magnesium 1.2 - 1.6 mg/dL 08/16/17 09:45 Magnesium Sulfate 2 gm/Sodium Chloride 100 ml @ 50 mls/hr UNSCH PRN IV For Magnesium 1.2 - 1.6 mg/dL 08/16/17 09:45 Potassium Phosphate (K-Phos) 2,000 mg Q4H PRN PO For Phosphorus < 2.5 mg/dL 08/16/17 09:45 Sodium Phosphate 30 mmol/Sodium Chloride 250 ml @ 42 mls/hr UNSCH PRN IV For Phosphorus < 2.5 mg/dL 08/16/17 09:45 Potassium Phosphate (K-Phos) 2,000 mg UNSCH PRN PO/TUBE SEE LABEL COMMENTS 08/16/17 09:45 Potassium Phosphate 30 mmol/ Sodium Chloride 260 ml @ 42 mls/hr UNSCH PRN IV SEE LABEL COMMENTS 08/16/17 09:45 Daptomycin 500 mg/ Sodium Chloride 100 ml @ 200 mls/hr Q24H IV 08/17/17 11:00 08/17/17 10:34 Metoprolol Tartrate (Lopressor) 50 mg Q12HR PO 08/17/17 21:00 Objective: Vital Signs Date Time Temp Pulse Resp B/P (MAP) Pulse Ox O2 Delivery O2 Flow Rate FiO2 08/17/17 11:35 33 08/17/17 10:00 81 08/17/17 08:00 97.9 82 33 166/77 (106) 100 08/17/17 08:00 82 08/17/17 07:55 98 Nasal Cannula 5.00 08/17/17 06:00 85 08/17/17 05:02 100 40 08/17/17 04:00 83 08/17/17 04:00 98.0 83 30 158/78 (104) 100 08/17/17 02:00 79 08/17/17 01:30 98 40 08/17/17 00:00 97.8 81 32 154/82 (106) 96 08/17/17 00:00 81 08/16/17 22:00 88 08/16/17 20:00 97.4 90 37 166/74 (104) 90 08/16/17 20:00 90 08/16/17 18:00 88 08/16/17 16:00 98.0 85 31 158/85 (109) 100 08/16/17 16:00 84 08/16/17 15:00 86 30 178/81 (113) 100 08/16/17 14:00 88 08/16/17 14:00 87 29 167/78 (107) 99 08/16/17 13:21 98 40 08/16/17 13:00 103 36 181/85 (117) 96 Laboratory Tests Test 08/16/17 04:46 08/17/17 09:50 White Blood Count 11.0 TH/MM3 11.6 TH/MM3 Red Blood Count 2.84 MIL/MM3 2.72 MIL/MM3 Hemoglobin 9.2 GM/DL 8.7 GM/DL Hematocrit 27.2 % 26.2 % Mean Corpuscular Volume 95.7 FL 96.4 FL Mean Corpuscular Hemoglobin 32.2 PG 31.8 PG Mean Corpuscular Hemoglobin Concent 33.7 % 33.0 % Red Cell Distribution Width 17.1 % 17.4 % Platelet Count 414 TH/MM3 481 TH/MM3 Mean Platelet Volume 8.0 FL 8.1 FL Neutrophils (%) (Auto) 91.9 % 88.3 % Lymphocytes (%) (Auto) 2.7 % 2.7 % Monocytes (%) (Auto) 3.7 % 6.3 % Eosinophils (%) (Auto) 1.4 % 2.3 % Basophils (%) (Auto) 0.3 % 0.4 % Neutrophils # (Auto) 10.1 TH/MM3 10.2 TH/MM3 Lymphocytes # (Auto) 0.3 TH/MM3 0.3 TH/MM3 Monocytes # (Auto) 0.4 TH/MM3 0.7 TH/MM3 Eosinophils # (Auto) 0.2 TH/MM3 0.3 TH/MM3 Basophils # (Auto) 0.0 TH/MM3 0.0 TH/MM3 CBC Comment DIFF FINAL DIFF FINAL Differential Comment Laboratory Tests Test 08/16/17 04:46 08/16/17 22:38 08/17/17 09:50 Blood Urea Nitrogen 40 MG/DL 30 MG/DL Creatinine 0.95 MG/DL 0.80 MG/DL Random Glucose 81 MG/DL 127 MG/DL Total Protein 8.0 GM/DL Albumin 2.5 GM/DL Calcium Level 8.5 MG/DL 8.4 MG/DL Phosphorus Level 3.2 MG/DL 2.3 MG/DL Magnesium Level 1.5 MG/DL 1.6 MG/DL Alkaline Phosphatase 112 U/L Aspartate Amino Transf (AST/SGOT) 41 U/L Alanine Aminotransferase (ALT/SGPT) 80 U/L Total Bilirubin 1.2 MG/DL Sodium Level 142 MEQ/L 141 MEQ/L Potassium Level 3.0 MEQ/L 3.7 MEQ/L 3.3 MEQ/L Chloride Level 104 MEQ/L 104 MEQ/L Carbon Dioxide Level 25.7 MEQ/L 30.2 MEQ/L Anion Gap 12 MEQ/L 7 MEQ/L Estimat Glomerular Filtration Rate 57 ML/MIN 70 ML/MIN Total Creatine Kinase 66 U/L Imaging: Chest X-Ray 08/15/17 0600 Signed Impressions: Service Date/Time: Tuesday, August 15, 2017 05:18 - CONCLUSION: 1. Stable patchy basilar airspace disease and pleural thickening. Endotracheal tube and nasogastric tube unchanged. Fareed Masterson MD Chest X-Ray 08/11/17 0600 Signed Impressions: Service Date/Time: August 03:16 - CONCLUSION: Mild interval improvement in bilateral airspace disease with significant residual. Epifanio Sweeney MD Chest X-Ray 08/09/17 0000 Signed Impressions: Service Date/Time: Wednesday, August 09, 2017 11:34 - CONCLUSION: 1. Bilateral airspace disease with possibly some improving aeration in the lung bases. 2. Stable cardiomegaly. Stable position of life support tubes. 3. Stable calcifications overlying the soft tissues of the shoulders symmetrically and bilaterally. Findings are nonspecific and can represent entities such as dystrophic soft tissue calcifications, idiopathic tumoral calcinosis myositis ossificans as well as scleroderma and dermatomyositis. Findings are overtly benign, however Rogelio Santos MD Chest X-Ray 08/05/17 0600 Signed Impressions: Service Date/Time: Saturday, August 05, 2017 04:54 - CONCLUSION: Normal placement of nasogastric tube. Grossly stable aeration Sterling Aguilar MD Lumbar Spine CT 08/04/17 0000 Signed Impressions: Service Date/Time: August 13:46 - CONCLUSION: 1. There is low density in the soft tissues at the recent laminectomy site L4-L5 measuring up to 2.4 cm in thickness with out deformity of the posterior thecal sac at the laminectomy site. 2. Stable anterolisthesis at L5-S1 with bony fusion. 3. 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 Maykel Singh MD Abdomen/Pelvis CT 08/04/17 0000 Signed Impressions: Service Date/Time: August 13:46 - CONCLUSION: 1. There is stool diffusely throughout the colon suggesting constipation. 2. The solid organs of the abdomen are grossly intact. 3. No free air free fluid seen within the abdomen. No abscess is identified. 4. Small amount of free fluid within the abdomen. 5. Bilateral pleural effusions and consolidation. 6. Cardiomegaly. 7. 2 mm nonobstructing stone in the lower pole collecting system of the right kidney. 8. Anasarca. Mil Toro MD Abdomen Fluoroscopy 08/04/17 0000 Signed Impressions: Service Date/Time: August 17:00 - CONCLUSION: Uncomplicated nasoenteric suction type catheter (NGT) placement as above. Librado Hernandez MD PHYSICAL EXAMINATION: GENERAL: Awake and alert. HEENT: Extraocular movements intact. No icterus. Mucosa appears moist. NECK: No swelling or adenopathy. LUNGS: Slight rhonchi at the left base. Right lung is clear. HEART: Irregular S1 and S2. No audible murmurs, rubs or gallops. ABDOMEN: Slightly distended, soft, normal bowel sounds. BACK: KAY drainage catheter in place. Little clear serous drainage in the bulb. EXTREMITIES: No clubbing, cyanosis. 2+ edema of the upper extremities. SKIN: No rash. NEUROLOGIC: No gross focal finding. PSYCHIATRIC: Pleasant, calm and cooperative. IMPRESSION: 1. Septic shock. Improved. 2. Acute hypercapnic respiratory failure. Extubated. Still continues to feel somewhat short of breath. Receives intermittent BiPAP. 3. Acute renal failure. Improving 4. Shock liver, probably from sepsis. LFTs improving. 5. Lung infiltrate. Including thickening. 6. Osteomyelitis of the lumbar spine. Patient was placed on IV antibiotics By ID at [facility]. The patient is status post hardware removal from the lumbar spine and noted to have methicillin-resistant Staph aureus on culture. She received a course of IV vancomycin which was completed on 07/29/2017. 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 Has drain in place at the lumbar spine. She was due to have an appointment at [facility] in [place] later this month to assess the lumbar wound and possibly remove the lumbar drainage catheter. 6. Candiduria. RECOMMENDATIONS: 1. Continue the Daptomycin every 24 hours. Treatment until September 09, 2017. Patient has appointment with neurosurgery in [facility] for August 23 to address the lumbar spine infection and the drainage catheter. 2. Monitor pulmonary status. 3. Monitor the clinical status. Dion Wing MD August 17, 2017 12:25
--- NOTE | 2017-08-17 13:15 | HHI.HCPN ---
Reason for visit a. To assist with evaluation and management of symptoms including: dyspnea, pain b. To assist medical decision maker(s) with: better understanding of current medical conditions; weighing benefits/burdens of medical treatment options; making medical treatment decisions. Subjective/Interval History Patient seen today to follow-up on dyspnea, comfort. Medically extubated 2 days ago. Intermittently on and off of BiPAP and nasal cannula. WBC unchanged 1.6. H&H slightly down trend 8.7/26.2. Potassium 3.3, repletion per critical care protocol. H&H stable. BUN and creatinine continue to improve 30/0.80. Patient seen in room brother Jose present at bedside visiting. She is alert, oriented and appropriate. Voice is very soft and weak. She appears to have reasonable insight to hospitalization. She indicates she remembers me from previous days. When asked how she is feeling, she indicates overall she feels like she is doing a little better, feels her breathing a little better. Feels her pain is a little better. Denies any GI complaints, wants to eat. Requests strawberry Ensure. Explore with her and her brother her clinical course, and that her respiratory status is still fragile and though she has made small clinical improvements in the past few days she is still high risk for further respiratory decline and other complications. She indicates if her breathing deteriorated she would want to go back on a ventilator again advise in the coming days we could discuss this further as ultimately if she did require reintubation she could at some point even need to consider tracheostomy. For now she, and her brother remain optimistic that she will continue to slowly improve. Advised that we can take it a day at a time, reevaluate each day. Ask if patient wishes to designate a healthcare surrogate, she indicates she would want her brother to be medical decision maker for her (advised that he had been serving as proxy) she wishes to complete surrogate form, assisted her, she is able to initial very weakly. Discussed with primary nurse. Discussed with ID. . Advance Directives Living Will: Never completed Health Care Surrogate: Never completed Durable Power of Manager Commercial: Never completed Advance Directive Specifics Health Care Surrogate(s): 08/17/16 designated brother Jose Maria Isabel as HCS. . Objective Vital Signs Date Time Temp Pulse Resp B/P (MAP) Pulse Ox O2 Delivery O2 Flow Rate FiO2 08/17/17 12:00 99.4 84 29 145/81 (102) 97 08/17/17 12:00 84 08/17/17 11:35 33 08/17/17 10:00 81 08/17/17 08:00 97.9 82 33 166/77 (106) 100 08/17/17 08:00 82 08/17/17 07:55 98 Nasal Cannula 5.00 08/17/17 06:00 85 08/17/17 05:02 100 40 08/17/17 04:00 83 08/17/17 04:00 98.0 83 30 158/78 (104) 100 08/17/17 02:00 79 08/17/17 01:30 98 40 08/17/17 00:00 97.8 81 32 154/82 (106) 96 08/17/17 00:00 81 08/16/17 22:00 88 08/16/17 20:00 97.4 90 37 166/74 (104) 90 08/16/17 20:00 90 08/16/17 18:00 88 08/16/17 16:00 98.0 85 31 158/85 (109) 100 08/16/17 16:00 84 08/16/17 15:00 86 30 178/81 (113) 100 08/16/17 14:00 88 08/16/17 14:00 87 29 167/78 (107) 99 08/16/17 13:21 98 40 Intake & Output 08/17/17 08/17/17 06:59 18:59 Output Total 1015 ml Balance -1015 ml Output Urine Total 1000 ml Drainage Total 15 ml # Bowel Movements 1 Physical Exam CONSTITUTIONAL/GENERAL: This is an adequately nourished patient, alert and speaking some , mildly short of breath with conversation TUBES/LINES/DRAINS: Midline iv left upper. NG tube. Nasal cannula. CARDIOVASCULAR: Irregular rate and rhythm. Atrial fib observed. No JVD. Peripheral pulses symmetric-pedal pulses very faint. + 3 edema bilateral upper extremities. RESPIRATORY/CHEST: Symmetric, mildly labored respirations on nasal cannula. Mildly tachypneic. Clear to auscultation. Decreased air movement. GASTROINTESTINAL: Abdomen soft, nontender , nondistended. No hepato-splenomegaly , or palpable masses. No guarding. Bowel sounds hypoactive. NG tube in place. GENITOURINARY: Without palpable bladder distension. Catheter in place clear yellow urine. MUSCULOSKELETAL: Extremities without clubbing, cyanosis. Edema bilateral upper extremities. Healed graft scars to upper legs. Dressings to lower legs. Lower legs are very thin, with significant muscle atrophy. Arthritic appearing deformity to feet. Kyphotic posture, leaning forward in bed. NEUROLOGICAL: Alert , oriented, appropriate. Appears to have some reasonable insight to hospitalization. Speech is very quiet, weak. Cooperative, moving all 4 extremities very weakly. PSYCHIATRIC: No obvious anxiety/depression . Diagnostic Tests Laboratory Laboratory Tests Test 08/15/17 08:38 08/16/17 04:46 08/16/17 22:38 08/17/17 09:50 White Blood Count 11.6 TH/MM3 (4.0-11.0) 11.0 TH/MM3 (4.0-11.0) 11.6 TH/MM3 (4.0-11.0) Red Blood Count 2.86 MIL/MM3 (4.00-5.30) 2.84 MIL/MM3 (4.00-5.30) 2.72 MIL/MM3 (4.00-5.30) Hemoglobin 9.0 GM/DL (11.6-15.3) 9.2 GM/DL (11.6-15.3) 8.7 GM/DL (11.6-15.3) Hematocrit 28.0 % (35.0-46.0) 27.2 % (35.0-46.0) 26.2 % (35.0-46.0) Mean Corpuscular Volume 97.9 FL (80.0-100.0) 95.7 FL (80.0-100.0) 96.4 FL (80.0-100.0) Mean Corpuscular Hemoglobin 31.6 PG (27.0-34.0) 32.2 PG (27.0-34.0) 31.8 PG (27.0-34.0) Mean Corpuscular Hemoglobin Concent 32.3 % (32.0-36.0) 33.7 % (32.0-36.0) 33.0 % (32.0-36.0) Red Cell Distribution Width 17.7 % (11.6-17.2) 17.1 % (11.6-17.2) 17.4 % (11.6-17.2) Platelet Count 321 TH/MM3 (150-450) 414 TH/MM3 (150-450) 481 TH/MM3 (150-450) Mean Platelet Volume 8.2 FL (7.0-11.0) 8.0 FL (7.0-11.0) 8.1 FL (7.0-11.0) Neutrophils (%) (Auto) 93.6 % (16.0-70.0) 91.9 % (16.0-70.0) 88.3 % (16.0-70.0) Lymphocytes (%) (Auto) 2.3 % (9.0-44.0) 2.7 % (9.0-44.0) 2.7 % (9.0-44.0) Monocytes (%) (Auto) 2.8 % (0.0-8.0) 3.7 % (0.0-8.0) 6.3 % (0.0-8.0) Eosinophils (%) (Auto) 1.1 % (0.0-4.0) 1.4 % (0.0-4.0) 2.3 % (0.0-4.0) Basophils (%) (Auto) 0.2 % (0.0-2.0) 0.3 % (0.0-2.0) 0.4 % (0.0-2.0) Neutrophils # (Auto) 10.9 TH/MM3 (1.8-7.7) 10.1 TH/MM3 (1.8-7.7) 10.2 TH/MM3 (1.8-7.7) Lymphocytes # (Auto) 0.3 TH/MM3 (1.0-4.8) 0.3 TH/MM3 (1.0-4.8) 0.3 TH/MM3 (1.0-4.8) Monocytes # (Auto) 0.3 TH/MM3 (0-0.9) 0.4 TH/MM3 (0-0.9) 0.7 TH/MM3 (0-0.9) Eosinophils # (Auto) 0.1 TH/MM3 (0-0.4) 0.2 TH/MM3 (0-0.4) 0.3 TH/MM3 (0-0.4) Basophils # (Auto) 0.0 TH/MM3 (0-0.2) 0.0 TH/MM3 (0-0.2) 0.0 TH/MM3 (0-0.2) CBC Comment AUTO DIFF DIFF FINAL DIFF FINAL Differential Total Cells Counted 100 Neutrophils % (Manual) 84 % (16-70) Band Neutrophils % 11 % (0-6) Monocytes % 2 % (0-8) Neutrophils # (Manual) 11.4 TH/MM3 (1.8-7.7) Metamyelocytes 3 % (0-1) Differential Comment FINAL DIFF MANUAL Toxic Granulation 2+ (NORMAL) Platelet Estimate NORMAL (NORMAL) Platelet Morphology Comment ENLARGED (NORMAL) Red Cell Morphology Comment NORMAL (NORMAL) Prothrombin Time 18.7 SEC (9.8-11.6) 24.0 SEC (9.8-11.6) 36.0 SEC (9.8-11.6) Prothromb Time International Ratio 1.8 RATIO 2.4 RATIO 3.6 RATIO Blood Urea Nitrogen 46 MG/DL (7-18) 40 MG/DL (7-18) 30 MG/DL (7-18) Creatinine 1.04 MG/DL (0.50-1.00) 0.95 MG/DL (0.50-1.00) 0.80 MG/DL (0.50-1.00) Random Glucose 98 MG/DL (74-106) 81 MG/DL (74-106) 127 MG/DL (74-106) Total Protein 7.9 GM/DL (6.4-8.2) 8.0 GM/DL (6.4-8.2) Albumin 2.5 GM/DL (3.4-5.0) 2.5 GM/DL (3.4-5.0) Calcium Level 8.7 MG/DL (8.5-10.1) 8.5 MG/DL (8.5-10.1) 8.4 MG/DL (8.5-10.1) Phosphorus Level 3.5 MG/DL (2.5-4.9) 3.2 MG/DL (2.5-4.9) 2.3 MG/DL (2.5-4.9) Magnesium Level 1.6 MG/DL (1.5-2.5) 1.5 MG/DL (1.5-2.5) 1.6 MG/DL (1.5-2.5) Alkaline Phosphatase 107 U/L (45-117) 112 U/L (45-117) Aspartate Amino Transf (AST/SGOT) 39 U/L (15-37) 41 U/L (15-37) Alanine Aminotransferase (ALT/SGPT) 91 U/L (10-53) 80 U/L (10-53) Total Bilirubin 1.4 MG/DL (0.2-1.0) 1.2 MG/DL (0.2-1.0) Sodium Level 140 MEQ/L (136-145) 142 MEQ/L (136-145) 141 MEQ/L (136-145) Potassium Level 3.5 MEQ/L (3.5-5.1) 3.0 MEQ/L (3.5-5.1) 3.7 MEQ/L (3.5-5.1) 3.3 MEQ/L (3.5-5.1) Chloride Level 103 MEQ/L (98-107) 104 MEQ/L (98-107) 104 MEQ/L (98-107) Carbon Dioxide Level 25.9 MEQ/L (21.0-32.0) 25.7 MEQ/L (21.0-32.0) 30.2 MEQ/L (21.0-32.0) Anion Gap 11 MEQ/L (5-15) 12 MEQ/L (5-15) 7 MEQ/L (5-15) Estimat Glomerular Filtration Rate 52 ML/MIN (>89) 57 ML/MIN (>89) 70 ML/MIN (>89) Total Creatine Kinase 66 U/L (26-192) Result Diagram: 08/17/17 0950 08/17/17 0950 Imaging Last Impressions Chest X-Ray 08/15/17 0600 Signed Impressions: Service Date/Time: Tuesday, August 15, 2017 05:18 - CONCLUSION: 1. Stable patchy basilar airspace disease and pleural thickening. Endotracheal tube and nasogastric tube unchanged. Fareed Masterson MD Lumbar Spine CT 08/04/17 0000 Signed Impressions: Service Date/Time: August 13:46 - CONCLUSION: 1. There is low density in the soft tissues at the recent laminectomy site L4-L5 measuring up to 2.4 cm in thickness with out deformity of the posterior thecal sac at the laminectomy site. 2. Stable anterolisthesis at L5-S1 with bony fusion. 3. 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 Maykel Singh MD Abdomen/Pelvis CT 08/04/17 0000 Signed Impressions: Service Date/Time: August 13:46 - CONCLUSION: 1. There is stool diffusely throughout the colon suggesting constipation. 2. The solid organs of the abdomen are grossly intact. 3. No free air free fluid seen within the abdomen. No abscess is identified. 4. Small amount of free fluid within the abdomen. 5. Bilateral pleural effusions and consolidation. 6. Cardiomegaly. 7. 2 mm nonobstructing stone in the lower pole collecting system of the right kidney. 8. Anasarca. Mil Toro MD Abdomen Fluoroscopy 08/04/17 0000 Signed Impressions: Service Date/Time: August 17:00 - CONCLUSION: Uncomplicated nasoenteric suction type catheter (NGT) placement as above. Librado Hernandez MD Procedures 08/03/17 central line placed 08/04/17 intubated Assessment and Plan Disease Oriented Problem List: (1) Acute respiratory failure (2) CAD (coronary artery disease) (3) GERD (gastroesophageal reflux disease) (4) Anemia (5) Chest pain (6) Elevated troponin (7) Urinary tract infection (8) Sepsis (9) MRSA (methicillin resistant Staphylococcus aureus) septicemia (10) Atrial fibrillation with RVR (11) Hyperkalemia (12) Cardiomegaly (13) Hypoglycemia (14) Renal insufficiency (15) Metabolic acidosis (16) CKD (chronic kidney disease) stage 4, GFR 15-29 ml/min Symptom Scale: (1) Dyspnea 0-10 Scale: Unable to quantify (2) Pain 0-10 Scale: Unable to quantify Pertinent Non-Medical Issues 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 Not no children. Part of a very large family she has multiple siblings. She is closest with her brother Jose, who is local. Jose describes her as jessee and extremely kind and caring. 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 She may at some point regain ability to participate. Brother Jose indicates she has always listed him as primary contact, and has always indicated that she trusts him to make decisions when she cannot however he is not certain that she has completed any documentation of healthcare surrogate or advanced directives. Per [place] statutes legal decision making would fall to the majority of all of patient's siblings. Brother indicates that he has always been the one assisting her with medical needs, decisions. Will discuss with him further tomorrow and attempt to contact additional siblings to determine if they wish to participate in decision-making. 08/05/17 4 of 5 siblings defer to brother Jose. Ethical issues impacting care: None identified Important Contacts Brother Mark Carrera) [facility] [phone] Sister Karrie defers to brother Bill Sister Malu defers to brother Bill Brother Sterling defers to brother Bill brother Gm defers to Bill Sister Itzel-- 08/08 defers to Jose . Prognosis This patient was admitted for respiratory distress, chest discomfort. She has had multiple recent hospitalizations and rehabilitation courses. Brother details that each time one condition stabilizes or improves she experiences another complication. She has required ongoing treatment for MRSA infection at a surgical site. Given her advanced age and multiple condition she does remain at risk for continued complications and decline and possibly . Code Status: Full Code Plan * Legal decision maker: Patient currently on mechanical vent, sedation unable to participate in decision-making. She may at some point regain ability to participate. Brothvíctor Garcia indicates she has always listed him as primary contact, and has always indicated that she trusts him to make decisions when she cannot however he is not certain that she has completed any documentation of healthcare surrogate or advanced directives. Per [place] statutes legal decision making would fall to the majority of all of patient's siblings. Brother indicates that he has always been the one assisting her with medical needs, decisions. Will discuss with him further tomorrow and attempt to contact additional siblings to determine if they wish to participate in decision -making. 08/05/17 brother Mark Carrera )called 4 of the 5 siblings each elected for him to serve as spokesperson for proxy decision-making. He left a voicemail for the fifth sibling Itzel. 08/08/17 call back from sister Itzel, who defers decision making/proxy to brother Jose. Jose willing to cont to serve as HC proxy. Patient medically extubated, able to complete healthcare surrogate designation naming her brother Mark Nicolas (Bill ) as healthcare surrogate * Goals: Met with brother, and patient today. She appears to have reasonable insight. She indicates she would want reintubation, continues to have aggressive goals doing whenever possible to help her recover. She and brother feel she is slowly improving. She requests strawberry Ensure nutritional supplement. * CODE STATUS:Full code * SYMPTOMS: --dyspnea-admitted for respiratory distress. Worsening respiratory status, metabolic acidosis, intubated 08/04. She is currently breathing comfortably on mechanical vent. CXR with slight improvement. CPAP trials ongoing- medical extubation yesterday, requiring Bipap. she requests reintubation if condition deteriorates. Not interested in comfort measures. If goals were comfort oriented prn benzodiazepines would be beneficial --Pain-patient appears comfortable at time of exam, currently unable to report pain however potential sources would include: Bedbound status, recent invasive procedure intubation, central line, multiple recent hospitalizations and surgical procedures, KAY to back still in place. She is noted to be on chronic morphine long-acting and short-acting prior to admission and has underwent multiple procedures and hospitalizations recently so likely has some underlying chronic pain. She was initially started on on fentanyl drip --this has been discontinued. She indicates pain is a little bit better, she has prn oral morphine 10 mg every 4 hours as needed. She has been using 3 or 4 doses a day. She indicates today this is effective. At some point may need to resume home scheduled long acting pain regimen. She is chronically on morphine extended release 15 mg every 12 hours, as well as morphine 15 mg prn for breakthrough pain; appears she is not opiate salomón may need additional pain regimen as clinical course goes forward. Will continue to evaluate. * Palliative care will continue to follow during hospital course as condition evolves, to assist patient/decision-maker with understanding of medical conditions, weighing benefits/burdens of treatment options, for clarification of goals of treatment. Additionally will assist with any symptoms of palliative concern . Time Spent Total Floor Time (mins): 35 (Chart review, PE, discussion with patient and healthcare surrogate, assistance with healthcare surrogate designation, discussion with nursing, ID) Attestation To help prompt me to consider important information that might be impacting today's encounter and assessment, information from prior notes written by myself or my colleagues may have been "brought forward" into today's note. My signature on this note, however, is an attestation that I personally performed the exam, history, and/or decision-making noted today, and, unless otherwise indicated, the interactions with patient, family, and staff as well as the review of records all occurred today. I also attest that the listed assessment and stated plan reflect my best clinical judgment today based on the combination of historical information, prior notes, and today's exam/ interactions. When time spent is documented, it refers only to time spent today by the signer, or if indicated, combined time spent today by collaborating physician/nurse practitioner. Angelica Barajas August 17, 2017 13:15
[2017-08-17] MEDS ORDERED: WARFARIN SOD 1 MG TAB PO SCH (16:00)
[2017-08-17] MEDS: METOPROLOL TARTRATE 50 MG TAB PO SCH (20:34)
[2017-08-17 23:42] LABS: PHOSPHORUS 3.7 MG/DL (2.5-4.9)
[2017-08-18] VITALS (33 sets, daily range): BP systolic 127–175; BP diastolic 73–98; PULSE 70–102; RESP 23–37; TEMP 97.3–98.2; O2SAT 79–100
[2017-08-18] MEDS: INSULIN NovoLIN REGULAR SUPPLEMENTAL SCALE SQ SCH ×5 (04:00→20:00)
[2017-08-18] MEDS: CHLORHEXIDINE GLUCONATE 2 % 1 PACK (2 CLOTHS) TOP SCH (04:00)
[2017-08-18] MEDS: MORPHINE SULFATE ORAL SOLN 10 MG/0.5 ML SYRINGE PO PRN ×2 (04:15→20:34)
[2017-08-18] MEDS: DILTIAZEM HCL 60 MG TAB PO SCH ×4 (06:29→18:00)
[2017-08-18] MEDS: SODIUM CHLORIDE 0.9% FLUSH 10 ML FLUSH IV FLUSH SCH ×4 (06:29→20:19)
[2017-08-18] MEDS: ARTIFICIAL TEARS OPTH SOLN 15 ML BTL EACH EYE SCH ×3 (06:29→20:19)
[2017-08-18] MEDS: CHLORHEXIDINE 0.12% (ORAL KIT) 15 ML CUP MT SCH ×2 (08:00→20:00)
[2017-08-18] MEDS: DOCUSATE SODIUM 50 MG/SENNA 8.6 MG TAB PO SCH ×2 (08:13→20:19)
[2017-08-18] MEDS: FAMOTIDINE 20 MG TAB PO SCH ×2 (08:13→20:19)
[2017-08-18] MEDS: METOPROLOL TARTRATE 50 MG TAB PO SCH ×2 (08:13→20:19)
[2017-08-18] MEDS: MUPIROCIN 2% OINT 1 APPLIC/GM SYR EACH NARE SCH ×2 (08:13→20:18)
[2017-08-18] MEDS: ASCORBIC ACID 500 MG TAB PO SCH (08:13)
[2017-08-18] MEDS: LACTULOSE SYRUP 20 GM/30 ML CUP PO SCH ×2 (08:13→20:18)
[2017-08-18] MEDS: ZINC SULFATE 220 MG CAP PO SCH (08:13)
[2017-08-18 08:40] LABS: ALT (GPT) 59 U/L (10-53)
[2017-08-18 08:43] LABS: ALKALINE PHOSPHATASE 108 U/L (45-117); PHOSPHORUS 3.5 MG/DL (2.5-4.9); TOTAL BILIRUBIN ADULT 0.8 MG/DL (0.2-1.0); TOTAL PROTEIN 7.8 GM/DL (6.4-8.2)
[2017-08-18 08:54] LABS: ALBUMIN 2.2 GM/DL (3.4-5.0); AST (GOT) 42 U/L (15-37); BICARBONATE 28.2 MEQ/L (21.0-32.0); BLOOD UREA NITROGEN 24 MG/DL (7-18); CALCIUM 7.8 MG/DL (8.5-10.1); CHLORIDE 103 MEQ/L (98-107); CREATININE 0.75 MG/DL (0.50-1.00); GLOMERULAR FILTRATION RATE 75 ML/MIN (>89); GLUCOSE,RANDOM 117 MG/DL (74-106); MAGNESIUM 1.3 MG/DL (1.5-2.5); SODIUM (NA) 138 MEQ/L (136-145)
[2017-08-18] MEDS: RESP: IPRATROPIUM 0.5 MG/2.5 ML NEB NEB SCH ×3 (10:00→22:00)
--- NOTE | 2017-08-18 10:07 | HHI.CCPN ---
Subjective Remarks/Hospital Course 76-year-old female resident of the assisted presents with complaints of respiratory difficulty. Onset was today. She is also complaining with some chest discomfort. She denies productive cough. Her symptoms are moderate to severe with no exacerbating factors. This patient was reportedly just discharged from [facility] with discitis secondary to MRSA. 53: Afebrile. Early this a.m. patient still having respiratory difficulty noted metabolic acidosis with a bicarb level 13, sodium bicarbonate infusion continues. She noticed to have respiratory distress ABGs performed. Impending intubation 7.10. Patient noted to have KAY drain emanating from back with dressing taken down no area redness yellow fluid and KAY drain sent for wound culture analysis. Upon further investigation patient's brother at bedside patient had lumbar hardware removed from [facility] in [place] approximately 6 weeks ago secondary to hardware eroding through the back and could be visualized on site. 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 Gottlieb cultures are pending. Attempts at medical record release forms from [facility] are pending. Patient previously last week at [facility] for acute kidney injury/urinary tract infection, attempting to obtain medical record. Patient was discharged approximately 2-3 days ago per report. This a.m. patient went into A. fib RVR with a heart rate in the 150s patient was given metoprolol 2 doses heart rate 112, patient is known to have chronic atrial fibrillation previously on Cardizem and digoxin 0.125 IV 1 dose Cardizem reinitiated. Discussion with patient regarding intubation and patient' s brother at bedside patient desires aggressive measures be undertaken patient requests intubation if needed and to remain a full code. Noted open areas skin wound areas on the lower extremities well-healed skin graft site left thigh wound care has been consulted. Palliative care also has been consulted to define goals of care. 08/05: Patient noted with elevated INR, Coumadin has been discontinued for 2 days. Vitamin K ordered. No active signs of bleeding. Patient on sedation vacation following commands. Afib rate controlled 70's-80's since addition to p.o. Cardizem. 6: Patient is currently on PSV trial FiO2 35%. Minimal secretions. Tolerating tube feeds. No bowel movement yesterday. Follows commands. 08/08: Temperature currently 98.8. Adequate weaning parameters however no cough leak. We will give dexamethasone 1 day and recheck cuff leak in a.m. Awake and follows commands. Transaminases normalized. Creatinine continues to slowly rise. 08/09: No events overnight. Patient is lethargic, easily arousable, tolerating CPAP at 10/5. T-max of 99.9. Still no cuff leak. Urine output is appropriate , with 3650 mL's over the last 24 hours. No family present at bedside. 08/10: No events over the night. Patient is awake, complaining of back pain, on fentanyl at 150 mics/hr. Tolerating CPAP 15/5. Afebrile over the night, with a T-max of 98.8. Negative fluid balance over the last 24 hours, -500 cc. 08/11: Patient remains intubated and sedated. She did well over the night. T- max of 98.6. She continues to be on fentanyl drip for back pain, asleep, easily arousable, follows commands. 08/12: No events over the night. Patient remains intubated, on fentanyl drip, easily arousable, following commands. Great response to diuretics, more than 3600 mL's urine output. Patient tolerated CPAP well yesterday but after being cleaned she developed tachycardia and tachypnea requiring full support. T-max of 99.3. 08/13: No events over the night. T-max of 98.6. She responded great to diuresis post Lasix, negative more than 3.3 L over the last 24 hours. She remains on fentanyl drip, lethargic, easily arousable. Oxygenation is unchanged. Chest x-ray reviewed, ET tube is in good position, 3 cm above paulo , unchanged bilateral opacities. 08/14: Patient remains intubated, on fentanyl infusion at 250 mcg/hour. T-max of 99.7. Negative almost 1 L over last 24 hours. Being but easily arousable, denies any complaints. On CPAP 12/5 tolerating well. 08/15 Patient is lying in bed in NAD. On BIPAP 01/09 with 50% FIO2. Afebrile. s/p extubation yesterday. 08/16 Patient was placed on BIPAP overnight. Afebrile 08/17 Patient is on 5L oxygen, afebrile. 08/18 No events overnight. Patient used BIPAP for 4 hrs overnight. Objective Vital Signs Date Time Temp Pulse Resp B/P (MAP) Pulse Ox O2 Delivery O2 Flow Rate FiO2 08/18/17 08:00 98.0 90 24 160/75 (103) 96 08/18/17 04:00 40 08/17/17 19:30 Nasal Cannula 6.00 Intake and Output 08/18/17 08/18/17 08/19/17 08:00 16:00 00:00 Output Total 750 ml Balance -750 ml Result Diagram: 08/17/17 0950 08/18/17 0720 Other Results Laboratory Tests Test 08/17/17 23:16 08/18/17 07:20 Potassium Level 3.8 MEQ/L 3.7 MEQ/L Phosphorus Level 3.7 MG/DL 3.5 MG/DL Blood Urea Nitrogen 24 MG/DL Creatinine 0.75 MG/DL Random Glucose 117 MG/DL Total Protein 7.8 GM/DL Albumin 2.2 GM/DL Calcium Level 7.8 MG/DL Magnesium Level 1.3 MG/DL Alkaline Phosphatase 108 U/L Aspartate Amino Transf (AST/SGOT) 42 U/L Alanine Aminotransferase (ALT/SGPT) 59 U/L Total Bilirubin 0.8 MG/DL Sodium Level 138 MEQ/L Chloride Level 103 MEQ/L Carbon Dioxide Level 28.2 MEQ/L Anion Gap 7 MEQ/L Estimat Glomerular Filtration Rate 75 ML/MIN Imaging Last Impressions Chest X-Ray 08/15/17 0600 Signed Impressions: Service Date/Time: Tuesday, August 15, 2017 05:18 - CONCLUSION: 1. Stable patchy basilar airspace disease and pleural thickening. Endotracheal tube and nasogastric tube unchanged. Fareed Masterson MD Lumbar Spine CT 08/04/17 0000 Signed Impressions: Service Date/Time: August 13:46 - CONCLUSION: 1. There is low density in the soft tissues at the recent laminectomy site L4-L5 measuring up to 2.4 cm in thickness with out deformity of the posterior thecal sac at the laminectomy site. 2. Stable anterolisthesis at L5-S1 with bony fusion. 3. 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 Maykel Singh MD Abdomen/Pelvis CT 08/04/17 0000 Signed Impressions: Service Date/Time: August 13:46 - CONCLUSION: 1. There is stool diffusely throughout the colon suggesting constipation. 2. The solid organs of the abdomen are grossly intact. 3. No free air free fluid seen within the abdomen. No abscess is identified. 4. Small amount of free fluid within the abdomen. 5. Bilateral pleural effusions and consolidation. 6. Cardiomegaly. 7. 2 mm nonobstructing stone in the lower pole collecting system of the right kidney. 8. Anasarca. Mil Toro MD Abdomen Fluoroscopy 08/04/17 0000 Signed Impressions: Service Date/Time: August 17:00 - CONCLUSION: Uncomplicated nasoenteric suction type catheter (NGT) placement as above. Librado Hernandez MD Procedures 08/04 -placement of NG tube IR Objective Remarks GENERAL: Patient is 76 yo lying in bed in NAD SKIN: Warm and dry. HEAD: Normocephalic. EYES: No scleral icterus. No injection or drainage. NECK: Supple, trachea midline. No JVD or lymphadenopathy. CARDIOVASCULAR: Regular rate and rhythm without murmurs, gallops, or rubs. RESPIRATORY: Breath sounds equal bilaterally. No accessory muscle use. GASTROINTESTINAL: Abdomen soft, non-tender, nondistended. MUSCULOSKELETAL: No cyanosis, or edema. Neuro: Awake Date of Insertion: August 04, 2017 A/P Problem List: (1) Afib ICD Code: I48.91 - Unspecified atrial fibrillation Status: Acute (2) EMIR (acute kidney injury) ICD Code: N17.9 - Acute kidney failure, unspecified Status: Acute (3) CKD (chronic kidney disease) stage 4, GFR 15-29 ml/min ICD Code: N18.4 - Chronic kidney disease, stage 4 (severe) Status: Acute (4) Renal insufficiency ICD Code: N28.9 - Disorder of kidney and ureter, unspecified Status: Acute (5) Chronic pain ICD Code: G89.29 - Other chronic pain Status: Acute (6) Atrial fibrillation with RVR ICD Code: I48.91 - Unspecified atrial fibrillation Status: Acute (7) Hyperkalemia ICD Code: E87.5 - Hyperkalemia Status: Acute (8) Severe sepsis ICD Code: A41.9 - Sepsis, unspecified organism; R65.20 - Severe sepsis without septic shock (9) Metabolic acidosis ICD Code: E87.2 - Acidosis Status: Acute (10) Hypoglycemia ICD Code: E16.2 - Hypoglycemia, unspecified Status: Acute (11) Cardiomegaly ICD Code: I51.7 - Cardiomegaly Status: Acute Assessment and Plan Neuro/Psych: Chronic pain syndrome Status post removal of lumbar/sacral L5/S1 hardware 06/19 Chronic opioid use Monitor neuro status, avoid sedatives Acetaminophen 650 mg every 6 hours as needed for temperature greater than 101.5 Respiratory: Acute hypercapnic respiratory failure -improving Mild pulmonary hypertension COPD/asthma Continue with oxygen keep sats >92% Ipratropium aerosols every 6 hours Albuterol allergy NIPPV PRN for resp distress Check CXR and ABG Solumederol 40mg IV Q6 x 4doses Cardiovascular: A. fib RVR-resolved History of essential hypertension Chronic systolic congestive heart failure Chronic atrial fibrillation Monitor HR and BP keep MAP>65mmHg On Cardizem 60 mg Q6, Lopressor 50mg Q12 08/05 Echo- The left ventricular systolic function is moderately reduced with an EF 40-45%. Dyskinetic apical cap wall motion. The right ventricle is moderately dilated. Moderate mitral valve regurgitation. Aortic valve sclerosis is present. There is mild to moderate tricuspid valve regurgitation. There is estimated mild pulmonary hypertension present (range 40-50 mmHg). Home medications include isosorbide dinitrate 30 mg daily, metoprolol succinate 50 mg daily lisinopril 2.5 mg daily. These are currently on hold On Coumadin per pharmacy Renal: Acute renal insufficiency incentive chronic kidney disease stage IV Right renal stone/no hydronephrosis Monitor renal function, I/O's, electrolytes replacement per protocol Will need Mag replacement today FEN/GI: On PO diet Famotidine 10 mg twice daily for GI prophylaxis. Docusate sodium/senna 1 tablet twice daily, lactulose 30 cc twice daily for bowel regimen Heme/ID: Anemia of chronic disease Thrombocytopenia Leukocytosis MRSA Discitis Chronic warfarin use Funguria Continue daptomycin. ID is following. CK 66 on 08/16 Coumadin per pharmacy Medical records release obtained for medical records at [facility] and [facility] - The patient has a history of recent surgery at [facility] in [place]. She underwent removal of hardware from the lumbosacral spine L1-S1 because of exposed loosened hardware from prior surgery. She reportedly had surgery of the lumbosacral spine 10 years prior. The surgery at [facility] was on 06/27. Intraoperative culture reportedly had MRSA. She was put on antibiotics by infectious disease to complete on 07/29/2017. She was receiving intravenous vancomycin. The patient completed the course of the vancomycin. There is a notation in the medical record that she is ALLERGIC TO VANCOMYCIN. She is currently on daptomycin. She continues with a drainage catheter in the lumbosacral region from prior surgery. She was seen by infectious disease physician at [facility] and reportedly will be in need of IV antibiotics for 6 weeks because of osteomyelitis of the lumbar spine. 08/06 UTI -Denise-fluconazole 200mg/d 08/04- Blood Cultures -NGTD Endocrine: Glucose monitoring per ICU protocol -- SSI Prophylaxis: GI Prophylaxis Famotidine BID DVT Prophylaxis -- SCDs -- INR 3.6 on 08/17 Lines: PICC line Palliative care is following Level 2 follow-up Humberto Calabrese MD August 18, 2017 10:07
[2017-08-18] MEDS: DAPTOmycin INJ 500 MG in SODIUM CHLORIDE 0.9% INJ 100 ML IV SCH (10:21)
--- NOTE | 2017-08-18 10:30 | RADRPT ---
EXAM DATE/TIME: 08/18/2017 10:12 [place] COMPARISON: CHEST SINGLE AP, August 15, 2017, 5:18. INDICATIONS : Shortness of breath. MEDICAL HISTORY : Cardiovascular disease. Gastroesophageal reflux disease. Sepsis. SURGICAL HISTORY : Appendectomy. Hysterectomy. ENCOUNTER: Subsequent ACUITY: 2 weeks PAIN SCORE: 0/10 LOCATION: Bilateral chest FINDINGS: A single view of the chest demonstrates stable bilateral patchy airspace disease with areas of pleura l thickening. Heart size is prominent. Endotracheal and nasogastric tubes have been removed. Degenera tive changes of the right shoulder. Stable soft tissue calcification/ossification over the left shoul tony CONCLUSION: 1. Patchy bilateral airspace disease and areas of pleural thickening, unchanged. 2. Stable cardiomegaly. 3. Interval removal of the endotracheal and nasogastric tubes. 4. Stable soft tissue calcification/ossification over the left humerus/shoulder Rogelio Santos MD on August 18, 2017 at 10:27 Board Certified Radiologist. This report was verified electronically.
[2017-08-18 11:27] LABS: AUTOMATED NEUTROPHIL # 8.4 TH/MM3 (1.8-7.7); BASOPHIL # 0.1 TH/MM3 (0-0.2); BASOPHIL % 0.7 % (0.0-2.0); EOSINOPHIL # 0.5 TH/MM3 (0-0.4); EOSINOPHIL % 4.9 % (0.0-4.0); HEMATOCRIT 27.6 % (35.0-46.0); LYMPH % 3.4 % (9.0-44.0); LYMPHOCYTE # 0.3 TH/MM3 (1.0-4.8); MEAN CELL VOLUME 97.8 FL (80.0-100.0); MEAN CORPUSCULAR HGB CONC 32.7 % (32.0-36.0); MONO % 8.8 % (0.0-8.0); MONOCYTE # 0.9 TH/MM3 (0-0.9); NEUT % 82.2 % (16.0-70.0); PLATELET COUNT 470 TH/MM3 (150-450); RED BLOOD COUNT 2.82 MIL/MM3 (4.00-5.30); RED CELL DISTRIBUTION WIDTH 17.9 % (11.6-17.2); WHITE BLOOD COUNT 10.2 TH/MM3 (4.0-11.0)
[2017-08-18 11:33] LABS: PROTHROMBIN TIME - PATIENT 40.1 SEC (9.8-11.6)
[2017-08-18] MEDS: methylPREDNISolone SOD SUCC 40 MG/1 ML VIAL IV PUSH SCH ×2 (12:45→18:00)
[2017-08-19] VITALS (13 sets, daily range): BP systolic 131–158; BP diastolic 71–88; PULSE 82–98; RESP 21–33; TEMP 97.3–98.6; O2SAT 87–100
[2017-08-19] MEDS: methylPREDNISolone SOD SUCC 40 MG/1 ML VIAL IV PUSH SCH ×4 (01:18→18:00)
[2017-08-19] MEDS: DILTIAZEM HCL 60 MG TAB PO SCH ×4 (01:18→19:42)
[2017-08-19] MEDS: MORPHINE SULFATE ORAL SOLN 10 MG/0.5 ML SYRINGE PO PRN ×2 (01:20→17:31)
[2017-08-19] MEDS: INSULIN NovoLIN REGULAR SUPPLEMENTAL SCALE SQ SCH ×6 (04:00→20:51)
[2017-08-19] MEDS: RESP: IPRATROPIUM 0.5 MG/2.5 ML NEB NEB SCH ×4 (04:00→19:53)
[2017-08-19] MEDS: CHLORHEXIDINE GLUCONATE 2 % 1 PACK (2 CLOTHS) TOP SCH (04:00)
[2017-08-19] MEDS: ARTIFICIAL TEARS OPTH SOLN 15 ML BTL EACH EYE SCH ×3 (05:34→21:36)
[2017-08-19] MEDS: SODIUM CHLORIDE 0.9% FLUSH 10 ML FLUSH IV FLUSH SCH ×5 (05:34→21:36)
[2017-08-19 06:04] LABS: HEMATOCRIT 28.1 % (35.0-46.0); MEAN CORPUSCULAR HEMOGLOBIN 31.2 PG (27.0-34.0); MEAN CORPUSCULAR HGB CONC 32.1 % (32.0-36.0); MEAN PLATELET VOLUME 7.9 FL (7.0-11.0); PLATELET COUNT 499 TH/MM3 (150-450); RED CELL DISTRIBUTION WIDTH 17.5 % (11.6-17.2); WHITE BLOOD COUNT 14.5 TH/MM3 (4.0-11.0)
[2017-08-19 06:19] LABS: INTERNATIONAL NORMALIZED RATIO 3.9 RATIO; PROTHROMBIN TIME - PATIENT 38.8 SEC (9.8-11.6)
[2017-08-19 06:31] LABS: ALBUMIN 2.2 GM/DL (3.4-5.0); AST (GOT) 35 U/L (15-37); BICARBONATE 29.8 MEQ/L (21.0-32.0); BLOOD UREA NITROGEN 22 MG/DL (7-18); CALCIUM 8.1 MG/DL (8.5-10.1); CHLORIDE 101 MEQ/L (98-107); CREATININE 0.75 MG/DL (0.50-1.00); GLOMERULAR FILTRATION RATE 75 ML/MIN (>89); GLUCOSE,RANDOM 127 MG/DL (74-106); SODIUM (NA) 139 MEQ/L (136-145)
[2017-08-19 06:36] LABS: ALKALINE PHOSPHATASE 114 U/L (45-117); ALT (GPT) 51 U/L (10-53); TOTAL BILIRUBIN ADULT 0.9 MG/DL (0.2-1.0); TOTAL PROTEIN 8.1 GM/DL (6.4-8.2)
[2017-08-19 08:21] LABS: BANDS 8 % (0-6); LYMPHOCYTES 5 % (9-44); MONOCYTES 2 % (0-8); MYELOCYTES 3 % (0-0); NEUTROPHIL # MANUAL DIFF 13.5 TH/MM3 (1.8-7.7); POLYS (SEG NEUTROPHILS) 82 % (16-70)
[2017-08-19 08:22] LABS: TARGET CELLS 1+ (NORMAL)
--- NOTE | 2017-08-19 08:25 | HHI.CCPN ---
Subjective Remarks/Hospital Course 76-year-old [facility] presents with complaints of respiratory difficulty. Onset was today. She is also complaining with some chest discomfort. She denies productive cough. Her symptoms are moderate to severe with no exacerbating factors. This patient was reportedly just discharged from [facility] with discitis secondary to MRSA. 53: Afebrile. Early this a.m. patient still having respiratory difficulty noted metabolic acidosis with a bicarb level 13, sodium bicarbonate infusion continues. She noticed to have respiratory distress ABGs performed. Impending intubation 7.10. Patient noted to have KAY drain emanating from back with dressing taken down no area redness yellow fluid and KAY drain sent for wound culture analysis. Upon further investigation patient's brother at bedside patient had lumbar hardware removed from [facility] in [place] approximately 6 weeks ago secondary to hardware eroding through the back and could be visualized on site. 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 Gottlieb cultures are pending. Attempts at medical record release forms from [facility] are pending. Patient previously last week at [facility] for acute kidney injury/urinary tract infection, attempting to obtain medical record. Patient was discharged approximately 2-3 days ago per report. This a.m. patient went into A. fib RVR with a heart rate in the 150s patient was given metoprolol 2 doses heart rate 112, patient is known to have chronic atrial fibrillation previously on Cardizem and digoxin 0.125 IV 1 dose Cardizem reinitiated. Discussion with patient regarding intubation and patient' s brother at bedside patient desires aggressive measures be undertaken patient requests intubation if needed and to remain a full code. Noted open areas skin wound areas on the lower extremities well-healed skin graft site left thigh wound care has been consulted. Palliative care also has been consulted to define goals of care. 08/05: Patient noted with elevated INR, Coumadin has been discontinued for 2 days. Vitamin K ordered. No active signs of bleeding. Patient on sedation vacation following commands. Afib rate controlled 70's-80's since addition to p.o. Cardizem. 6: Patient is currently on PSV trial FiO2 35%. Minimal secretions. Tolerating tube feeds. No bowel movement yesterday. Follows commands. 08/08: Temperature currently 98.8. Adequate weaning parameters however no cough leak. We will give dexamethasone 1 day and recheck cuff leak in a.m. Awake and follows commands. Transaminases normalized. Creatinine continues to slowly rise. 08/09: No events overnight. Patient is lethargic, easily arousable, tolerating CPAP at 10/5. T-max of 99.9. Still no cuff leak. Urine output is appropriate , with 3650 mL's over the last 24 hours. No family present at bedside. 08/10: No events over the night. Patient is awake, complaining of back pain, on fentanyl at 150 mics/hr. Tolerating CPAP 15/5. Afebrile over the night, with a T-max of 98.8. Negative fluid balance over the last 24 hours, -500 cc. 08/11: Patient remains intubated and sedated. She did well over the night. T- max of 98.6. She continues to be on fentanyl drip for back pain, asleep, easily arousable, follows commands. 08/12: No events over the night. Patient remains intubated, on fentanyl drip, easily arousable, following commands. Great response to diuretics, more than 3600 mL's urine output. Patient tolerated CPAP well yesterday but after being cleaned she developed tachycardia and tachypnea requiring full support. T-max of 99.3. 08/13: No events over the night. T-max of 98.6. She responded great to diuresis post Lasix, negative more than 3.3 L over the last 24 hours. She remains on fentanyl drip, lethargic, easily arousable. Oxygenation is unchanged. Chest x-ray reviewed, ET tube is in good position, 3 cm above paulo , unchanged bilateral opacities. 08/14: Patient remains intubated, on fentanyl infusion at 250 mcg/hour. T-max of 99.7. Negative almost 1 L over last 24 hours. Being but easily arousable, denies any complaints. On CPAP 12/5 tolerating well. 08/15 Patient is lying in bed in NAD. On BIPAP 01/09 with 50% FIO2. Afebrile. s/p extubation yesterday. 08/16 Patient was placed on BIPAP overnight. Afebrile 08/17 Patient is on 5L oxygen, afebrile. 08/18 No events overnight. Patient used BIPAP for 4 hrs overnight. 08/19 No events overnight. On 5L oxygen. Afebrile Objective Vital Signs Date Time Temp Pulse Resp B/P (MAP) Pulse Ox O2 Delivery O2 Flow Rate FiO2 08/19/17 06:00 87 08/19/17 04:00 97.3 28 158/87 (110) 100 08/18/17 23:09 40 08/18/17 20:15 Nasal Cannula 5.00 Intake and Output 08/19/17 08/19/17 08/19/17 07:59 15:59 23:59 Intake Total 250 ml Output Total 760 ml Balance -510 ml Result Diagram: 08/19/1726 08/19/17525 Other Results Laboratory Tests Test 08/18/17 10:38 08/18/17 11:00 08/19/17 05:26 White Blood Count 10.2 TH/MM3 14.5 TH/MM3 Red Blood Count 2.82 MIL/MM3 2.90 MIL/MM3 Hemoglobin 9.0 GM/DL 9.0 GM/DL Hematocrit 27.6 % 28.1 % Mean Corpuscular Volume 97.8 FL 97.0 FL Mean Corpuscular Hemoglobin 32.0 PG 31.2 PG Mean Corpuscular Hemoglobin Concent 32.7 % 32.1 % Red Cell Distribution Width 17.9 % 17.5 % Platelet Count 470 TH/MM3 499 TH/MM3 Mean Platelet Volume 8.0 FL 7.9 FL Neutrophils (%) (Auto) 82.2 % Lymphocytes (%) (Auto) 3.4 % Monocytes (%) (Auto) 8.8 % Eosinophils (%) (Auto) 4.9 % Basophils (%) (Auto) 0.7 % Neutrophils # (Auto) 8.4 TH/MM3 Lymphocytes # (Auto) 0.3 TH/MM3 Monocytes # (Auto) 0.9 TH/MM3 Eosinophils # (Auto) 0.5 TH/MM3 Basophils # (Auto) 0.1 TH/MM3 CBC Comment AUTO DIFF AUTO DIFF Differential Comment AUTO DIFF CONFIRMED Platelet Estimate HIGH Platelet Morphology Comment NORMAL Prothrombin Time 40.1 SEC 38.8 SEC Prothromb Time International Ratio 4.0 RATIO 3.9 RATIO Blood Gas Puncture Site RT RADIAL Blood Gas Patient Temperature 98.6 Blood Gas HCO3 31 mmol/L Blood Gas Base Excess 6.4 mmol/L Blood Gas Oxygen Saturation 93 % Arterial Blood pH 7.45 Arterial Blood Partial Pressure CO2 45 mmHg Arterial Blood Partial Pressure O2 76 mmHg Arterial Blood Oxygen Content 15.9 Vol % Arterial Blood Carboxyhemoglobin 1.6 % Arterial Blood Methemoglobin 1.2 % Blood Gas Hemoglobin 12.2 G/DL Oxygen Delivery Device NASAL CANNULA Blood Gas Liter Flow 4 L/M Blood Urea Nitrogen 22 MG/DL Creatinine 0.75 MG/DL Random Glucose 127 MG/DL Total Protein 8.1 GM/DL Albumin 2.2 GM/DL Calcium Level 8.1 MG/DL Alkaline Phosphatase 114 U/L Aspartate Amino Transf (AST/SGOT) 35 U/L Alanine Aminotransferase (ALT/SGPT) 51 U/L Total Bilirubin 0.9 MG/DL Sodium Level 139 MEQ/L Potassium Level 3.8 MEQ/L Chloride Level 101 MEQ/L Carbon Dioxide Level 29.8 MEQ/L Anion Gap 8 MEQ/L Estimat Glomerular Filtration Rate 75 ML/MIN Imaging Last Impressions Chest X-Ray 08/18/17 0000 Signed Impressions: Service Date/Time: August 10:12 - CONCLUSION: 1. Patchy bilateral airspace disease and areas of pleural thickening, unchanged. 2. Stable cardiomegaly. 3. Interval removal of the endotracheal and nasogastric tubes. 4. Stable soft tissue calcification/ossification over the left humerus/shoulder Rogelio Santos MD Lumbar Spine CT 08/04/17 0000 Signed Impressions: Service Date/Time: August 13:46 - CONCLUSION: 1. There is low density in the soft tissues at the recent laminectomy site L4-L5 measuring up to 2.4 cm in thickness with out deformity of the posterior thecal sac at the laminectomy site. 2. Stable anterolisthesis at L5-S1 with bony fusion. 3. 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 Maykel Singh MD Abdomen/Pelvis CT 08/04/17 0000 Signed Impressions: Service Date/Time: August 13:46 - CONCLUSION: 1. There is stool diffusely throughout the colon suggesting constipation. 2. The solid organs of the abdomen are grossly intact. 3. No free air free fluid seen within the abdomen. No abscess is identified. 4. Small amount of free fluid within the abdomen. 5. Bilateral pleural effusions and consolidation. 6. Cardiomegaly. 7. 2 mm nonobstructing stone in the lower pole collecting system of the right kidney. 8. Anasarca. Mil Toro MD Abdomen Fluoroscopy 08/04/17 0000 Signed Impressions: Service Date/Time: August 17:00 - CONCLUSION: Uncomplicated nasoenteric suction type catheter (NGT) placement as above. Librado Hernandez MD Procedures 08/04 -placement of NG tube IR Objective Remarks GENERAL: Patient is 76 yo lying in bed in NAD SKIN: Warm and dry. HEAD: Normocephalic. EYES: No scleral icterus. No injection or drainage. NECK: Supple, trachea midline. No JVD or lymphadenopathy. CARDIOVASCULAR: Regular rate and rhythm without murmurs, gallops, or rubs. RESPIRATORY: Breath sounds equal bilaterally. No accessory muscle use. GASTROINTESTINAL: Abdomen soft, non-tender, nondistended. MUSCULOSKELETAL: No cyanosis, or edema. Neuro: Awake Date of Insertion: August 04, 2017 A/P Problem List: (1) Afib ICD Code: I48.91 - Unspecified atrial fibrillation Status: Acute (2) EMIR (acute kidney injury) ICD Code: N17.9 - Acute kidney failure, unspecified Status: Acute (3) CKD (chronic kidney disease) stage 4, GFR 15-29 ml/min ICD Code: N18.4 - Chronic kidney disease, stage 4 (severe) Status: Acute (4) Renal insufficiency ICD Code: N28.9 - Disorder of kidney and ureter, unspecified Status: Acute (5) Chronic pain ICD Code: G89.29 - Other chronic pain Status: Acute (6) Atrial fibrillation with RVR ICD Code: I48.91 - Unspecified atrial fibrillation Status: Acute (7) Hyperkalemia ICD Code: E87.5 - Hyperkalemia Status: Acute (8) Severe sepsis ICD Code: A41.9 - Sepsis, unspecified organism; R65.20 - Severe sepsis without septic shock (9) Metabolic acidosis ICD Code: E87.2 - Acidosis Status: Acute (10) Hypoglycemia ICD Code: E16.2 - Hypoglycemia, unspecified Status: Acute (11) Cardiomegaly ICD Code: I51.7 - Cardiomegaly Status: Acute Assessment and Plan Neuro/Psych: Chronic pain syndrome Status post removal of lumbar/sacral L5/S1 hardware 06/19 Chronic opioid use Monitor neuro status, avoid sedatives Acetaminophen 650 mg every 6 hours as needed for temperature greater than 101.5 Respiratory: Acute hypercapnic respiratory failure -improving Mild pulmonary hypertension COPD/asthma Continue with oxygen keep sats >92% Ipratropium aerosols every 6 hours Albuterol allergy NIPPV PRN for resp distress Solumederol 40mg IV Q6 x 4doses Cardiovascular: A. fib RVR-resolved History of essential hypertension Chronic systolic congestive heart failure Chronic atrial fibrillation Monitor HR and BP keep MAP>65mmHg On Cardizem 60 mg Q6, Lopressor 50mg Q12, add Hydralazine 50mg Q8 08/05 Echo- The left ventricular systolic function is moderately reduced with an EF 40-45%. Dyskinetic apical cap wall motion. The right ventricle is moderately dilated. Moderate mitral valve regurgitation. Aortic valve sclerosis is present. There is mild to moderate tricuspid valve regurgitation. There is estimated mild pulmonary hypertension present (range 40-50 mmHg). Home medications include isosorbide dinitrate 30 mg daily, metoprolol succinate 50 mg daily lisinopril 2.5 mg daily. These are currently on hold On Coumadin per pharmacy Renal: Acute renal insufficiency incentive chronic kidney disease stage IV Right renal stone/no hydronephrosis Monitor renal function, I/O's, electrolytes replacement per protocol FEN/GI: On PO diet Famotidine 10 mg twice daily for GI prophylaxis. Docusate sodium/senna 1 tablet twice daily, lactulose 30 cc twice daily for bowel regimen Heme/ID: Anemia of chronic disease Thrombocytopenia Leukocytosis MRSA Discitis Chronic warfarin use Funguria Continue daptomycin. ID is following. CK 66 on 08/16 Coumadin per pharmacy Medical records release obtained for medical records at [facility]/[place] and [facility] - The patient has a history of recent surgery at [facility] in [place]. She underwent removal of hardware from the lumbosacral spine L1-S1 because of exposed loosened hardware from prior surgery. She reportedly had surgery of the lumbosacral spine 10 years prior. The surgery at [facility] was on 06/27. Intraoperative culture reportedly had MRSA. She was put on antibiotics by infectious disease to complete on 07/29/2017. She was receiving intravenous vancomycin. The patient completed the course of the vancomycin. There is a notation in the medical record that she is ALLERGIC TO VANCOMYCIN. She is currently on daptomycin. She continues with a drainage catheter in the lumbosacral region from prior surgery. She was seen by infectious disease physician at [facility] and reportedly will be in need of IV antibiotics for 6 weeks because of osteomyelitis of the lumbar spine. 08/06 UTI -Denise-fluconazole 200mg/d 08/04- Blood Cultures -NGTD Endocrine: Glucose monitoring per ICU protocol -- SSI Prophylaxis: GI Prophylaxis Famotidine BID DVT Prophylaxis -- SCDs -- INR 3.9 today Lines: PICC line Palliative care is following Level 2 follow-up Humberto Calabrese MD August 19, 2017 08:25
[2017-08-19] MEDS: hydrALAZINE HCL 50 MG TAB PO SCH ×3 (08:30→21:36)
[2017-08-19] MEDS: LACTULOSE SYRUP 20 GM/30 ML CUP PO SCH ×2 (09:00→20:41)
[2017-08-19] MEDS: MUPIROCIN 2% OINT 1 APPLIC/GM SYR EACH NARE SCH ×2 (09:00→20:41)
[2017-08-19] MEDS: FAMOTIDINE 20 MG TAB PO SCH ×2 (11:12→20:41)
[2017-08-19] MEDS: METOPROLOL TARTRATE 50 MG TAB PO SCH ×2 (11:12→20:41)
[2017-08-19] MEDS: ZINC SULFATE 220 MG CAP PO SCH (11:12)
[2017-08-19] MEDS: ASCORBIC ACID 500 MG TAB PO SCH (11:12)
[2017-08-19] MEDS: DAPTOmycin INJ 500 MG in SODIUM CHLORIDE 0.9% INJ 100 ML IV SCH (11:13)
[2017-08-19] MEDS: DOCUSATE SODIUM 50 MG/SENNA 8.6 MG TAB PO SCH ×2 (11:13→20:41)
--- NOTE | 2017-08-19 11:56 | HHI.HCPN ---
Reason for visit a. To assist with evaluation and management of symptoms including: dyspnea, pain b. To assist medical decision maker(s) with: better understanding of current medical conditions; weighing benefits/burdens of medical treatment options; making medical treatment decisions. Subjective/Interval History Patient seen today to follow-up on dyspnea, comfort. Continues to tolerate medical extubation. Has been tolerating nasal cannula. Today on 3 L. WBC up slightly 14.5. Tolerating oral diet though only eating 20 -25%. NG tube has been discontinued. Chemistry unremarkable. CXR yesterday = Patchy bilateral airspace disease and areas of pleural thickening, unchanged Patient seen in room no visitors present. Nurse is at bedside. She is alert, mostly oriented. She understands she is in the hospital with respiratory difficulties. Review recent hospitalizations, intubation and extubation, she seems to have fair insight. Currently indicates her pain is okay feels is adequately controlled. Denies shortness of breath. Denies GI complaints. Says she has been hungry. Feeling better overall. Explore with her given her prolonged course thus far and her recent complications and hospitalizations that she does remain at ongoing risk for future complications, debility and that she may not fully recover. She tells me that she wants to live, and she wants to do whatever things she needs to do to try to live. Explore that that could involve reintubation, and that ultimately she could request comfort measures only and allow disease processes to follow a natural course. She tells me that she is going to live. Advised that if she were on event again and it was for a prolonged time that there could be decisions needing to be made regarding a tracheostomy and feeding tube. She tells me that she would agree to those measures if they would help her continue to live, even if she lived dependent and on a ventilator. She tells me brother Jose has not been in yet offered to call him she endorses she would like that. Discussed with primary nurse. . Family/friend interactions Following exam call to brother and healthcare surrogate Jose. Updated on current condition, assessment, as well as patient's preferences voiced today. Jose is in agreement with this. He feels yesterday when he saw the patient she looked better than she has a long time and that this makes him optimistic. He is supportive of whatever her goals and wishes are. All questions answered, he has palliative information to contact if he has additional questions. He is appreciative ongoing updates. . Advance Directives Living Will: Never completed Health Care Surrogate: Never completed Durable Power of Visiting Nurse: Never completed Advance Directive Specifics Health Care Surrogate(s): 08/17/16 designated brother Jose Nicolas as HCS. . Objective Vital Signs Date Time Temp Pulse Resp B/P (MAP) Pulse Ox O2 Delivery O2 Flow Rate FiO2 08/19/17 08:40 94 Nasal Cannula 3.00 08/19/17 06:00 87 08/19/17 04:00 92 08/19/17 04:00 97.3 92 28 158/87 (110) 100 08/19/17 02:24 18 08/19/17 02:00 91 08/19/17 00:00 89 08/19/17 00:00 89 31 150/88 (108) 99 08/18/17 23:09 99 40 08/18/17 22:00 88 08/18/17 20:15 98 Nasal Cannula 5.00 08/18/17 20:00 98 08/18/17 20:00 97.9 98 37 147/82 (103) 98 08/18/17 18:00 90 08/18/17 17:00 98 28 171/87 (115) 92 08/18/17 16:30 95 30 175/86 (115) 87 08/18/17 16:00 98.1 102 24 170/87 (114) 96 08/18/17 16:00 96 28 161/98 (119) 100 08/18/17 16:00 90 08/18/17 15:30 91 29 168/83 (111) 100 08/18/17 15:00 87 28 166/83 (110) 100 08/18/17 14:30 89 30 162/81 (108) 100 08/18/17 14:00 91 32 158/87 (110) 96 08/18/17 14:00 90 08/18/17 13:30 92 34 151/84 (106) 79 08/18/17 13:00 85 29 142/77 (98) 94 08/18/17 12:30 86 29 145/84 (104) 98 08/18/17 12:23 83 33 154/81 (105) 94 08/18/17 12:00 98.0 85 24 154/81 (105) 96 08/18/17 12:00 90 5/17/18 12:00 81 28 100 Intake & Output 08/19/17 08/19/17 07:00 19:00 Intake Total 250 ml Output Total 760 ml Balance -510 ml Intake Oral 250 ml Output Urine Total 750 ml Drainage Total 10 ml # Bowel Movements 0 Physical Exam CONSTITUTIONAL/GENERAL: This is an adequately nourished patient, alert, pleasant TUBES/LINES/DRAINS: Midline iv left upper. Nasal cannula. Simpson catheter. CARDIOVASCULAR: Irregular rate and rhythm. Atrial fib observed. No JVD. Peripheral pulses symmetric-pedal pulses very faint. Edema to upper extremities much improved RESPIRATORY/CHEST: Symmetric, un labored respirations on nasal cannula. Clear to auscultation. Decreased air movement. GASTROINTESTINAL: Abdomen soft, nontender , nondistended. No hepato-splenomegaly , or palpable masses. No guarding. Bowel sounds hypoactive. GENITOURINARY: Without palpable bladder distension. Catheter in place clear yellow urine. MUSCULOSKELETAL: Extremities without clubbing, cyanosis. Edema improved to upper extremities. Healed graft scars to upper legs. Dressings to lower legs. Lower legs are very thin, with significant muscle atrophy. Arthritic appearing deformity to feet. Kyphotic posture, leaning forward in bed. NEUROLOGICAL: Alert , oriented, appropriate. Appears to have some reasonable insight to hospitalization. Speech is quiet, weak. Cooperative, moving all 4 extremities very weakly. PSYCHIATRIC: No obvious anxiety/depression . Diagnostic Tests Laboratory Laboratory Tests Test 08/16/17 22:38 08/17/17 09:50 08/17/17 23:16 08/18/17 07:20 Potassium Level 3.7 MEQ/L (3.5-5.1) 3.3 MEQ/L (3.5-5.1) 3.8 MEQ/L (3.5-5.1) 3.7 MEQ/L (3.5-5.1) White Blood Count 11.6 TH/MM3 (4.0-11.0) Red Blood Count 2.72 MIL/MM3 (4.00-5.30) Hemoglobin 8.7 GM/DL (11.6-15.3) Hematocrit 26.2 % (35.0-46.0) Mean Corpuscular Volume 96.4 FL (80.0-100.0) Mean Corpuscular Hemoglobin 31.8 PG (27.0-34.0) Mean Corpuscular Hemoglobin Concent 33.0 % (32.0-36.0) Red Cell Distribution Width 17.4 % (11.6-17.2) Platelet Count 481 TH/MM3 (150-450) Mean Platelet Volume 8.1 FL (7.0-11.0) Neutrophils (%) (Auto) 88.3 % (16.0-70.0) Lymphocytes (%) (Auto) 2.7 % (9.0-44.0) Monocytes (%) (Auto) 6.3 % (0.0-8.0) Eosinophils (%) (Auto) 2.3 % (0.0-4.0) Basophils (%) (Auto) 0.4 % (0.0-2.0) Neutrophils # (Auto) 10.2 TH/MM3 (1.8-7.7) Lymphocytes # (Auto) 0.3 TH/MM3 (1.0-4.8) Monocytes # (Auto) 0.7 TH/MM3 (0-0.9) Eosinophils # (Auto) 0.3 TH/MM3 (0-0.4) Basophils # (Auto) 0.0 TH/MM3 (0-0.2) CBC Comment DIFF FINAL Differential Comment Prothrombin Time 36.0 SEC (9.8-11.6) Prothromb Time International Ratio 3.6 RATIO Blood Urea Nitrogen 30 MG/DL (7-18) 24 MG/DL (7-18) Creatinine 0.80 MG/DL (0.50-1.00) 0.75 MG/DL (0.50-1.00) Random Glucose 127 MG/DL (74-106) 117 MG/DL (74-106) Calcium Level 8.4 MG/DL (8.5-10.1) 7.8 MG/DL (8.5-10.1) Phosphorus Level 2.3 MG/DL (2.5-4.9) 3.7 MG/DL (2.5-4.9) 3.5 MG/DL (2.5-4.9) Magnesium Level 1.6 MG/DL (1.5-2.5) 1.3 MG/DL (1.5-2.5) Sodium Level 141 MEQ/L (136-145) 138 MEQ/L (136-145) Chloride Level 104 MEQ/L (98-107) 103 MEQ/L (98-107) Carbon Dioxide Level 30.2 MEQ/L (21.0-32.0) 28.2 MEQ/L (21.0-32.0) Anion Gap 7 MEQ/L (5-15) 7 MEQ/L (5-15) Estimat Glomerular Filtration Rate 70 ML/MIN (>89) 75 ML/MIN (>89) Total Protein 7.8 GM/DL (6.4-8.2) Albumin 2.2 GM/DL (3.4-5.0) Alkaline Phosphatase 108 U/L (45-117) Aspartate Amino Transf (AST/SGOT) 42 U/L (15-37) Alanine Aminotransferase (ALT/SGPT) 59 U/L (10-53) Total Bilirubin 0.8 MG/DL (0.2-1.0) Test 08/18/17 10:38 08/18/17 11:00 08/19/17 05:26 White Blood Count 10.2 TH/MM3 (4.0-11.0) 14.5 TH/MM3 (4.0-11.0) Red Blood Count 2.82 MIL/MM3 (4.00-5.30) 2.90 MIL/MM3 (4.00-5.30) Hemoglobin 9.0 GM/DL (11.6-15.3) 9.0 GM/DL (11.6-15.3) Hematocrit 27.6 % (35.0-46.0) 28.1 % (35.0-46.0) Mean Corpuscular Volume 97.8 FL (80.0-100.0) 97.0 FL (80.0-100.0) Mean Corpuscular Hemoglobin 32.0 PG (27.0-34.0) 31.2 PG (27.0-34.0) Mean Corpuscular Hemoglobin Concent 32.7 % (32.0-36.0) 32.1 % (32.0-36.0) Red Cell Distribution Width 17.9 % (11.6-17.2) 17.5 % (11.6-17.2) Platelet Count 470 TH/MM3 (150-450) 499 TH/MM3 (150-450) Mean Platelet Volume 8.0 FL (7.0-11.0) 7.9 FL (7.0-11.0) Neutrophils (%) (Auto) 82.2 % (16.0-70.0) Lymphocytes (%) (Auto) 3.4 % (9.0-44.0) Monocytes (%) (Auto) 8.8 % (0.0-8.0) Eosinophils (%) (Auto) 4.9 % (0.0-4.0) Basophils (%) (Auto) 0.7 % (0.0-2.0) Neutrophils # (Auto) 8.4 TH/MM3 (1.8-7.7) Lymphocytes # (Auto) 0.3 TH/MM3 (1.0-4.8) Monocytes # (Auto) 0.9 TH/MM3 (0-0.9) Eosinophils # (Auto) 0.5 TH/MM3 (0-0.4) Basophils # (Auto) 0.1 TH/MM3 (0-0.2) CBC Comment AUTO DIFF AUTO DIFF Differential Comment AUTO DIFF CONFIRMED FINAL DIFF MANUAL Platelet Estimate HIGH (NORMAL) HIGH (NORMAL) Platelet Morphology Comment NORMAL (NORMAL) NORMAL (NORMAL) Prothrombin Time 40.1 SEC (9.8-11.6) 38.8 SEC (9.8-11.6) Prothromb Time International Ratio 4.0 RATIO 3.9 RATIO Blood Gas Puncture Site RT RADIAL Blood Gas Patient Temperature 98.6 Blood Gas HCO3 31 mmol/L (22-26) Blood Gas Base Excess 6.4 mmol/L (-2-2) Blood Gas Oxygen Saturation 93 % (90-100) Arterial Blood pH 7.45 (7.380-7.420) Arterial Blood Partial Pressure CO2 45 mmHg (38-42) Arterial Blood Partial Pressure O2 76 mmHg (61-120) Arterial Blood Oxygen Content 15.9 Vol % (12.0-20.0) Arterial Blood Carboxyhemoglobin 1.6 % (0-4) Arterial Blood Methemoglobin 1.2 % (0-2) Blood Gas Hemoglobin 12.2 G/DL (12.0-16.0) Oxygen Delivery Device NASAL CANNULA Blood Gas Liter Flow 4 L/M Differential Total Cells Counted 100 Neutrophils % (Manual) 82 % (16-70) Band Neutrophils % 8 % (0-6) Lymphocytes % 5 % (9-44) Monocytes % 2 % (0-8) Neutrophils # (Manual) 13.5 TH/MM3 (1.8-7.7) Myelocytes 3 % (0-0) Target Cells 1+ (NORMAL) Blood Urea Nitrogen 22 MG/DL (7-18) Creatinine 0.75 MG/DL (0.50-1.00) Random Glucose 127 MG/DL (74-106) Total Protein 8.1 GM/DL (6.4-8.2) Albumin 2.2 GM/DL (3.4-5.0) Calcium Level 8.1 MG/DL (8.5-10.1) Alkaline Phosphatase 114 U/L (45-117) Aspartate Amino Transf (AST/SGOT) 35 U/L (15-37) Alanine Aminotransferase (ALT/SGPT) 51 U/L (10-53) Total Bilirubin 0.9 MG/DL (0.2-1.0) Sodium Level 139 MEQ/L (136-145) Potassium Level 3.8 MEQ/L (3.5-5.1) Chloride Level 101 MEQ/L (98-107) Carbon Dioxide Level 29.8 MEQ/L (21.0-32.0) Anion Gap 8 MEQ/L (5-15) Estimat Glomerular Filtration Rate 75 ML/MIN (>89) Result Diagram: 08/19/17 0526 08/19/17 0526 Imaging Last Impressions Chest X-Ray 08/18/17 0000 Signed Impressions: Service Date/Time: August 10:12 - CONCLUSION: 1. Patchy bilateral airspace disease and areas of pleural thickening, unchanged. 2. Stable cardiomegaly. 3. Interval removal of the endotracheal and nasogastric tubes. 4. Stable soft tissue calcification/ossification over the left humerus/shoulder Rogelio Santos MD Lumbar Spine CT 08/04/17 0000 Signed Impressions: Service Date/Time: August 13:46 - CONCLUSION: 1. There is low density in the soft tissues at the recent laminectomy site L4-L5 measuring up to 2.4 cm in thickness with out deformity of the posterior thecal sac at the laminectomy site. 2. Stable anterolisthesis at L5-S1 with bony fusion. 3. 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 Maykel Singh MD Abdomen/Pelvis CT 08/04/17 0000 Signed Impressions: Service Date/Time: August 13:46 - CONCLUSION: 1. There is stool diffusely throughout the colon suggesting constipation. 2. The solid organs of the abdomen are grossly intact. 3. No free air free fluid seen within the abdomen. No abscess is identified. 4. Small amount of free fluid within the abdomen. 5. Bilateral pleural effusions and consolidation. 6. Cardiomegaly. 7. 2 mm nonobstructing stone in the lower pole collecting system of the right kidney. 8. Anasarca. Mil Toro MD Abdomen Fluoroscopy 08/04/17 0000 Signed Impressions: Service Date/Time: August 17:00 - CONCLUSION: Uncomplicated nasoenteric suction type catheter (NGT) placement as above. Librado Hernandez MD Procedures 08/03/17 central line placed 08/04/17 intubated Assessment and Plan Disease Oriented Problem List: (1) Acute respiratory failure (2) CAD (coronary artery disease) (3) GERD (gastroesophageal reflux disease) (4) Anemia (5) Chest pain (6) Elevated troponin (7) Urinary tract infection (8) Sepsis (9) MRSA (methicillin resistant Staphylococcus aureus) septicemia (10) Atrial fibrillation with RVR (11) Hyperkalemia (12) Cardiomegaly (13) Hypoglycemia (14) Renal insufficiency (15) Metabolic acidosis (16) CKD (chronic kidney disease) stage 4, GFR 15-29 ml/min Symptom Scale: (1) Dyspnea 0-10 Scale: Unable to quantify (2) Pain 0-10 Scale: Unable to quantify Pertinent Non-Medical Issues 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 Not no children. Part of a very large family she has multiple siblings. She is closest with her brother Jose, who is local. Jose describes her as jessee and extremely kind and caring. 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 She may at some point regain ability to participate. Brother Jose indicates she has always listed him as primary contact, and has always indicated that she trusts him to make decisions when she cannot however he is not certain that she has completed any documentation of healthcare surrogate or advanced directives. Per [place] statutes legal decision making would fall to the majority of all of patient's siblings. Brother indicates that he has always been the one assisting her with medical needs, decisions. Will discuss with him further tomorrow and attempt to contact additional siblings to determine if they wish to participate in decision-making. 08/05/17 4 of 5 siblings defer to brother Jose. Ethical issues impacting care: None identified Important Contacts Brother Mark Nicolas (Bill) [phone] HEALTHCARE SURROGATE Sister Karrie defers to brother Bill Sister Malu defers to brother Bill Brothvíctor Katz defers to brother Bill brother Gm defers to Bill Sister Itzel-- 08/08 defers to Bill . Prognosis This patient was admitted for respiratory distress, chest discomfort. She has had multiple recent hospitalizations and rehabilitation courses. Brother details that each time one condition stabilizes or improves she experiences another complication. She has required ongoing treatment for MRSA infection at a surgical site. Given her advanced age and multiple condition she does remain at risk for continued complications and decline and possibly . Code Status: Full Code Plan * Legal decision maker: . Patient medically extubated, able to complete healthcare surrogate designation naming her brother Mark Nicolas (Bill ) as healthcare surrogate. She does appear to have insight and able to participate in decision making, supported by [facility]. * Goals: Patient has been stable, made very slow and slight improvements during ICU course. Patient expresses aggressive goals, including reintubation. She would also consider tracheostomy and PEG tube if indicated and would help her continue to live. Her brother and healthcare surrogate is supportive of her wishes. * CODE STATUS:Full code * SYMPTOMS: --dyspnea-admitted for respiratory distress. Worsening respiratory status, metabolic acidosis, intubated 08/04. Medically extubated, tolerating nasal cannula though has required BiPAP intermittently. CXR stable. Not interested in comfort measures. If goals were comfort oriented prn benzodiazepines would be beneficial --Pain-patient appears comfortable at time of exam, currently unable to report pain however potential sources would include: Bedbound status, recent invasive procedure intubation, central line, multiple recent hospitalizations and surgical procedures, KAY to back still in place. She is noted to be on chronic morphine long-acting and short-acting prior to admission and has underwent multiple procedures and hospitalizations recently so likely has some underlying chronic pain. She was initially started on on fentanyl drip --this has been discontinued. She indicates pain is a little bit better, she has prn oral morphine 10 mg every 4 hours as needed. She has been using 2-3 doses a day. She indicates today this is effective, pain is controlled. At some point may need to resume home scheduled long acting pain regimen. She is chronically on morphine extended release 15 mg every 12 hours, as well as morphine 15 mg prn for breakthrough pain; appears she is not opiate salomón may need additional pain regimen as clinical course goes forward. Will continue to evaluate. * Palliative care will continue to follow during hospital course as condition evolves, to assist patient/decision-maker with understanding of medical conditions, weighing benefits/burdens of treatment options, for clarification of goals of treatment. Additionally will assist with any symptoms of palliative concern . Time Spent Total Floor Time (mins): 25 (Chart review, PE discussion with nursing, discussion with patient, discussion with healthcare surrogate) Attestation To help prompt me to consider important information that might be impacting today's encounter and assessment, information from prior notes written by myself or my colleagues may have been "brought forward" into today's note. My signature on this note, however, is an attestation that I personally performed the exam, history, and/or decision-making noted today, and, unless otherwise indicated, the interactions with patient, family, and staff as well as the review of records all occurred today. I also attest that the listed assessment and stated plan reflect my best clinical judgment today based on the combination of historical information, prior notes, and today's exam/ interactions. When time spent is documented, it refers only to time spent today by the signer, or if indicated, combined time spent today by collaborating physician/nurse practitioner. Angelica Barajas August 19, 2017 11:56
--- NOTE | 2017-08-19 16:34 | HHI.IDPN ---
Note Infectious Disease Note Patient is awake and interactive. Comfortable. States that the back pain she has is unchanged. No new complaints. No fever. No distress. Visitor friend at bedside. White blood cell count has increased. Patient was extubated 08/14. 76-year-old white female who presented to the Emergency Department from residential facility with respiratory distress. She was noted to be complaining also of chest discomfort. The patient was intubated and is currently on a ventilator. In the emergency department, the patient had heart rate of 144, temperature 100.9 and respiratory rate of 53. Lactic acid level was 9.4. She was recently diagnosed with acute renal failure at [facility] and was transferred to a residential facility upon discharge there on 08/02/2017 . Evaluated at [facility] for altered mental status and also acute kidney disease. The patient has a history of recent surgery at [facility] in [place]. She underwent removal of hardware from the lumbosacral spine L4-S1 via posterior instrumentation because of exposed loosened hardware from prior surgery. Also underwent bilateral paraspinous muscle flaps and wound closure. Required double layer patch graft repair for small durotomy which occurred during surgery. She reportedly had surgery of the lumbosacral spine 10 years prior. The surgery at [facility] was on 06/27. Intraoperative culture reportedly had MRSA. She was put on antibiotics by infectious disease to complete on 07/29/2017. She was receiving intravenous vancomycin. She was seen by infectious disease physician at [facility] where she was noted to have acute renal failure. 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 PAST MEDICAL HISTORY: 1. L4-S1 fusion. Recent hardware removal. 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 The patient noted to have loosened hardware 2. Atrial fibrillation. 3. COPD, 4. Plasmacytoma, 5. Anemia, 6. Osteoarthritis, 7. Appendectomy, 8. Hysterectomy, 9. Tonsillectomy, 10. Cholecystectomy, 11. Gastroesophageal reflux disease surgery. ALLERGIES: VANCOMYCIN, ALBUTEROL, GABAPENTIN, IPRATROPIUM, IRON, PENICILLIN G, PROCHLORPERAZINE Antibiotics: Daptomycin. Current Medications Medications (Trade) Dose Ordered Sig/Jayne Route PRN Reason Start Time Stop Time Status Last Admin Dose Admin Metoprolol Tartrate (Lopressor Inj) 5 mg Q5M PRN IV PUSH HR > 100 08/03/17 16:45 08/15/17 03:21 Ascorbic Acid (Vitamin C) 500 mg DAILY PO 08/04/17 09:00 08/17/17 08:04 Cyclobenzaprine HCl (Flexeril) 10 mg Q8HR PRN PO Muscle Cramps 08/03/17 19:45 08/15/17 16:00 Fluticasone Propionate (Flonase Harvey Spr) 1 spray Q12HR EACH NARE 08/03/17 21:00 Future Hold 08/07/17 09:08 Morphine Sulfate (Msir) 15 mg Q4H PRN PO Moderate Pain 08/03/17 19:45 Future Hold Sodium Chloride (NS Flush) 10 ml Q8HR IV FLUSH 08/03/17 22:00 08/17/17 06:51 Zinc Sulfate (Zinc Sulfate) 220 mg DAILY PO 08/04/17 09:00 08/17/17 08:04 Sodium Chloride (NS Flush) 2 ml UNSCH PRN IV FLUSH FLUSH AFTER USING IV ACCESS 08/03/17 20:00 08/13/17 01:41 Sodium Chloride (NS Flush) 2 ml BID IV FLUSH 08/03/17 21:00 08/17/17 08:03 Morphine Sulfate (Morphine Inj) 2 mg Q2H PRN IV PUSH PAIN SCALE 6 TO 10 08/03/17 20:00 Future Hold 08/04/17 05:14 Ondansetron HCl (Zofran Inj) 4 mg Q6H PRN IV PUSH NAUSEA OR VOMITING 08/03/17 20:00 Miscellaneous Information ([facility]) 1 [id number] XX 08/03/17 20:00 08/03/17 22:46 Chlorhexidine Gluconate (Chlorhexidine 2% Cloth) Taper DAILY@04 TOP 08/04/17 04:00 07/31/18 03:59 08/08/17 05:11 Chlorhexidine Gluconate (Chlorhexidine 2% Cloth) 3 pack UNSCH PRN TOP HYGIENIC CARE 08/03/17 20:00 Senna/Docusate Sodium (Dina-Colace) 1 tab BID PO 08/03/17 21:00 08/16/17 09:17 Magnesium Hydroxide (Milk Of Magnesia Liq) 30 ml Q12H PRN PO Mild constipation 08/03/17 20:00 Sennosides (Senokot) 17.2 mg Q12H PRN PO Moderate constipation 08/03/17 20:00 Bisacodyl (Dulcolax Supp) 10 mg DAILY PRN RECTAL SEVERE CONSITIPATION 08/03/17 20:00 Lactulose (Lactulose Liq) 30 ml DAILY PRN PO SEVERE CONSITIPATION 08/03/17 20:00 Pharmacy Profile Note 0 ml @ 0 mls/hr UNSCH OTHER 08/04/17 03:45 Chlorhexidine Gluconate (Peridex 0.12% Liq) 15 ml BID@08,20 MT 08/04/17 20:00 08/17/17 08:00 Ipratropium Sanborn (Atrovent Neb) 0.5 mg Q6HR NEB NEB 08/04/17 16:00 08/14/17 16:08 Famotidine (Pepcid) 10 mg BID PO 08/05/17 21:00 08/17/17 08:03 Artificial Tears (Tears Naturale Opth Soln) 1 drop Q8HR EACH EYE 08/07/17 14:00 08/17/17 06:51 Acetaminophen (Tylenol 650 Mg/ 20 ml Liq) 650 mg Q6H PRN PO fever 08/07/17 14:00 Mupirocin (Bactroban Nasal 2% Oint) Taper BID EACH NARE 08/07/17 21:00 08/03/18 20:59 08/17/17 08:02 Lactulose (Lactulose Liq) 30 ml Q12HR PO 08/07/17 21:00 08/16/17 09:17 Labetalol HCl (Trandate Inj) 10 mg Q1HR PRN IV PUSH SBP>170, DBP>90, HR>65 08/08/17 15:15 08/17/17 11:35 Hydralazine HCl (Apresoline Inj) 10 mg Q1HR PRN IV PUSH SBP>170, DBP>90 08/08/17 15:15 08/13/17 01:41 Nitroglycerin (Nitroglycerin 2% Oint) 2 inch Q6HR PRN TOPICAL SBP>170, DBP>90 08/08/17 15:15 Morphine Sulfate (Roxanol Liq) 10 mg Q4H PRN PO pain 5-10 08/12/17 14:15 08/17/17 10:35 Miscellaneous (Pill Splitter) 1 ea UNSCH PRN OTHER SEE LABEL COMMENTS 08/13/17 14:15 Dextrose (D50w (Vial) Inj) 50 ml UNSCH PRN IV PUSH HYPOGLYCEMIA-SEE COMMENTS 08/15/17 16:00 Glucagon (Glucagon Inj) 1 mg UNSCH PRN OTHER HYPOGLYCEMIA-SEE COMMENTS 08/15/17 16:00 Insulin Human Regular (NovoLIN R SUPPLEMENTAL SCALE) 1 Q4HR SQ 08/15/17 16:00 Diltiazem HCl (Cardizem) 60 mg Q6HR PO 08/16/17 12:00 08/17/17 11:34 Potassium Chloride 100 ml @ 50 mls/hr Q2H PRN IV For Potassium 2.8 - 3.2 mEq/L 08/16/17 09:45 Potassium Chloride 100 ml @ 50 mls/hr Q2H PRN IV For Potassium 2.8 - 3.2 mEq/L 08/16/17 09:45 08/16/17 14:43 Potassium Bicarb/ Potassium Chloride (K-Lyte Cl Eff) 50 meq UNSCH PRN PO For Potassium 3.3 - 3.5 mEq/L 08/16/17 09:45 Potassium Chloride 100 ml @ 25 mls/hr UNSCH PRN IV For Potassium 3.3 - 3.5 mEq/L 08/16/17 09:45 Potassium Chloride 100 ml @ 50 mls/hr Q2H PRN IV For Potassium 3.3 - 3.5 mEq/L 08/16/17 09:45 Magnesium Sulfate 4 gm/Sodium Chloride 100 ml @ 50 mls/hr UNSCH PRN IV For Magnesium 0.9 - 1.1 mg/dL 08/16/17 09:45 Magnesium Oxide (Mag-Ox) 800 mg UNSCH PRN PO For Magnesium 1.2 - 1.6 mg/dL 08/16/17 09:45 Magnesium Sulfate 2 gm/Sodium Chloride 100 ml @ 50 mls/hr UNSCH PRN IV For Magnesium 1.2 - 1.6 mg/dL 08/16/17 09:45 Potassium Phosphate (K-Phos) 2,000 mg Q4H PRN PO For Phosphorus < 2.5 mg/dL 08/16/17 09:45 Sodium Phosphate 30 mmol/Sodium Chloride 250 ml @ 42 mls/hr UNSCH PRN IV For Phosphorus < 2.5 mg/dL 08/16/17 09:45 Potassium Phosphate (K-Phos) 2,000 mg UNSCH PRN PO/TUBE SEE LABEL COMMENTS 08/16/17 09:45 Potassium Phosphate 30 mmol/ Sodium Chloride 260 ml @ 42 mls/hr UNSCH PRN IV SEE LABEL COMMENTS 08/16/17 09:45 Daptomycin 500 mg/ Sodium Chloride 100 ml @ 200 mls/hr Q24H IV 08/17/17 11:00 08/17/17 10:34 Metoprolol Tartrate (Lopressor) 50 mg Q12HR PO 08/17/17 21:00 Objective: Vital Signs Date Time Temp Pulse Resp B/P (MAP) Pulse Ox O2 Delivery O2 Flow Rate FiO2 08/19/17 14:00 84 08/19/17 12:00 98.6 86 30 152/77 (102) 98 08/19/17 12:00 86 08/19/17 10:00 88 08/19/17 08:40 94 Nasal Cannula 3.00 08/19/17 08:00 82 08/19/17 08:00 98.6 82 28 131/71 (91) 87 08/19/17 06:00 87 08/19/17 04:00 92 08/19/17 04:00 97.3 92 28 158/87 (110) 100 08/19/17 02:24 18 08/19/17 02:00 91 08/19/17 00:00 89 08/19/17 00:00 89 31 150/88 (108) 99 08/18/17 23:09 99 40 08/18/17 22:00 88 08/18/17 20:15 98 Nasal Cannula 5.00 08/18/17 20:00 98 08/18/17 20:00 97.9 98 37 147/82 (103) 98 08/18/17 18:00 90 08/18/17 17:00 98 28 171/87 (115) 92 08/18/17 16:30 95 30 175/86 (115) 87 Laboratory Tests Test 08/18/17 10:38 08/19/17 05:26 White Blood Count 10.2 TH/MM3 14.5 TH/MM3 Red Blood Count 2.82 MIL/MM3 2.90 MIL/MM3 Hemoglobin 9.0 GM/DL 9.0 GM/DL Hematocrit 27.6 % 28.1 % Mean Corpuscular Volume 97.8 FL 97.0 FL Mean Corpuscular Hemoglobin 32.0 PG 31.2 PG Mean Corpuscular Hemoglobin Concent 32.7 % 32.1 % Red Cell Distribution Width 17.9 % 17.5 % Platelet Count 470 TH/MM3 499 TH/MM3 Mean Platelet Volume 8.0 FL 7.9 FL Neutrophils (%) (Auto) 82.2 % Lymphocytes (%) (Auto) 3.4 % Monocytes (%) (Auto) 8.8 % Eosinophils (%) (Auto) 4.9 % Basophils (%) (Auto) 0.7 % Neutrophils # (Auto) 8.4 TH/MM3 Lymphocytes # (Auto) 0.3 TH/MM3 Monocytes # (Auto) 0.9 TH/MM3 Eosinophils # (Auto) 0.5 TH/MM3 Basophils # (Auto) 0.1 TH/MM3 CBC Comment AUTO DIFF AUTO DIFF Differential Comment AUTO DIFF CONFIRMED FINAL DIFF MANUAL Platelet Estimate HIGH HIGH Platelet Morphology Comment NORMAL NORMAL Differential Total Cells Counted 100 Neutrophils % (Manual) 82 % Band Neutrophils % 8 % Lymphocytes % 5 % Monocytes % 2 % Neutrophils # (Manual) 13.5 TH/MM3 Myelocytes 3 % Target Cells 1+ Laboratory Tests Test 08/17/17 23:16 08/18/17 07:20 08/19/17 05:26 Potassium Level 3.8 MEQ/L 3.7 MEQ/L 3.8 MEQ/L Phosphorus Level 3.7 MG/DL 3.5 MG/DL Blood Urea Nitrogen 24 MG/DL 22 MG/DL Creatinine 0.75 MG/DL 0.75 MG/DL Random Glucose 117 MG/DL 127 MG/DL Total Protein 7.8 GM/DL 8.1 GM/DL Albumin 2.2 GM/DL 2.2 GM/DL Calcium Level 7.8 MG/DL 8.1 MG/DL Magnesium Level 1.3 MG/DL Alkaline Phosphatase 108 U/L 114 U/L Aspartate Amino Transf (AST/SGOT) 42 U/L 35 U/L Alanine Aminotransferase (ALT/SGPT) 59 U/L 51 U/L Total Bilirubin 0.8 MG/DL 0.9 MG/DL Sodium Level 138 MEQ/L 139 MEQ/L Chloride Level 103 MEQ/L 101 MEQ/L Carbon Dioxide Level 28.2 MEQ/L 29.8 MEQ/L Anion Gap 7 MEQ/L 8 MEQ/L Estimat Glomerular Filtration Rate 75 ML/MIN 75 ML/MIN Imaging: Chest X-Ray 08/18/17 0000 Signed Impressions: Service Date/Time: August 10:12 - CONCLUSION: 1. Patchy bilateral airspace disease and areas of pleural thickening, unchanged. 2. Stable cardiomegaly. 3. Interval removal of the endotracheal and nasogastric tubes. 4. Stable soft tissue calcification/ossification over the left humerus/shoulder Rogelio Santos MD Chest X-Ray 08/15/17 06 Signed Impressions: Service Date/Time: Tuesday, August 15, 2017 05:18 - CONCLUSION: 1. Stable patchy basilar airspace disease and pleural thickening. Endotracheal tube and nasogastric tube unchanged. Fareed Masterson MD Chest X-Ray 08/11/17 06 Signed Impressions: Service Date/Time: August 03:16 - CONCLUSION: Mild interval improvement in bilateral airspace disease with significant residual. Epifanio Sweeney MD Chest X-Ray 08/05/17 06 Signed Impressions: Service Date/Time: Saturday, August 05, 2017 04:54 - CONCLUSION: Normal placement of nasogastric tube. Grossly stable aeration Sterling Aguilar MD Lumbar Spine CT 08/04/17 0000 Signed Impressions: Service Date/Time: August 13:46 - CONCLUSION: 1. There is low density in the soft tissues at the recent laminectomy site L4-L5 measuring up to 2.4 cm in thickness with out deformity of the posterior thecal sac at the laminectomy site. 2. Stable anterolisthesis at L5-S1 with bony fusion. 3. 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 Maykel Singh MD Abdomen/Pelvis CT 08/04/17 0000 Signed Impressions: Service Date/Time: August 13:46 - CONCLUSION: 1. There is stool diffusely throughout the colon suggesting constipation. 2. The solid organs of the abdomen are grossly intact. 3. No free air free fluid seen within the abdomen. No abscess is identified. 4. Small amount of free fluid within the abdomen. 5. Bilateral pleural effusions and consolidation. 6. Cardiomegaly. 7. 2 mm nonobstructing stone in the lower pole collecting system of the right kidney. 8. Anasarca. Mil Toro MD Abdomen Fluoroscopy 08/04/17 0000 Signed Impressions: Service Date/Time: August 17:00 - CONCLUSION: Uncomplicated nasoenteric suction type catheter (NGT) placement as above. Librado Hernandez MD PHYSICAL EXAMINATION: GENERAL: Awake and alert. Responsive. HEENT: Extraocular movements intact. No icterus. Mucosa appears moist. NECK: No swelling or adenopathy. LUNGS: decreased breath sounds and rhonchi at the bases. HEART: Irregular S1 and S2. No audible murmurs, rubs or gallops. ABDOMEN: Slightly distended, soft, normal bowel sounds. BACK: KAY drainage catheter in place. Little clear serous drainage in the bulb. EXTREMITIES: No clubbing, cyanosis. trace edema of the upper extremities. SKIN: No rash. NEUROLOGIC: No gross focal finding. PSYCHIATRIC: Pleasant, calm and cooperative. IMPRESSION: 1. Septic shock. Improved. 2. Acute hypercapnic respiratory failure. Extubated. Still continues to feel somewhat short of breath. Receives intermittent BiPAP. 3. Acute renal failure. Improving 4. Shock liver, probably from sepsis. LFTs improving. 5. Lung infiltrate. Including thickening. 6. Osteomyelitis of the lumbar spine. Patient was placed on IV antibiotics By ID at [facility]. The patient is status post hardware removal from the lumbar spine and noted to have methicillin-resistant Staph aureus on culture. She received a course of IV vancomycin which was completed on 07/29/2017. 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 Has drain in place at the lumbar spine. She was due to have an appointment at [facility] in [place] later this month to assess the lumbar wound and possibly remove the lumbar drainage catheter. 6. Candiduria. Receive Diflucan treatment. 7. Leukocytosis. Abnormal chest x-ray. Recent extubation. Recent brought antibiotics. RECOMMENDATIONS: 1. Continue the Daptomycin every 24 hours. Treatment until September 09, 2017. Patient has appointment with neurosurgery in [facility] for August 23 to address the lumbar spine infection and the drainage catheter. 2. Repeat chest x-ray in a.m. 3. Begin coverage for pulmonary infection with meropenem. She has been on broad-spectrum antibiotics And could have a resistant organism. 4. Repeat urine culture. 5. Monitor clinical status. Dion Wing MD August 19, 2017 16:33
[2017-08-19] MEDS ORDERED: PHARMACY INFORMATION XX PRN ×2 (16:45)
[2017-08-19] MEDS ORDERED: ASP: Documented allergy to Penicillins or Cephalosporins PRN (16:45)
[2017-08-19] MEDS: MEROPENEM INJ 1,000 MG in SODIUM CHLORIDE 0.9% INJ 100 ML IV SCH (19:41)
[2017-08-19] MEDS: CHLORHEXIDINE 0.12% (ORAL KIT) 15 ML CUP MT SCH (20:00)
[2017-08-19 23:33] LABS: BACTERIA, URINE RARE /hpf; BILIRUBIN, URINE NEG (NEG); BLOOD, URINE TRACE (NEG); CALCIUM OXALATE CRYSTALS,URINE OCC /hpf; GLUCOSE,URINE NEG (NEG); HYALINE CAST, URINE 6 /lpf (RARE); KETONE, URINE NEG (NEG); MUCUS URINE FEW /lpf (OCC); NITRITE,URINE NEG (NEG); PH, URINE 5.5 (5.0-8.5); RENAL EPITHELIAL CELLS <1 /hpf; SQUAMOUS EPITHELIAL CELL URINE 1 /hpf (0-5); URINE COLOR YELLOW (YELLW/STRAW); URINE LEUKOCYTE ESTERASE TRACE (NEG); WHITE BLOOD CELL CLUMPS RARE
[2017-08-20] VITALS (14 sets, daily range): BP systolic 123–144; BP diastolic 60–78; PULSE 70–98; RESP 21–33; TEMP 97.6–98.6; O2SAT 97–100
[2017-08-20] MEDS: SODIUM CHLORIDE 0.9% FLUSH 10 ML FLUSH IV FLUSH PRN (00:21)
[2017-08-20] MEDS: methylPREDNISolone SOD SUCC 40 MG/1 ML VIAL IV PUSH SCH ×4 (00:21→17:10)
[2017-08-20] MEDS: DILTIAZEM HCL 60 MG TAB PO SCH ×5 (00:22→23:28)
[2017-08-20] MEDS: MEROPENEM INJ 1,000 MG in SODIUM CHLORIDE 0.9% INJ 100 ML IV SCH ×3 (01:39→17:11)
[2017-08-20] MEDS: CHLORHEXIDINE GLUCONATE 2 % 1 PACK (2 CLOTHS) TOP SCH (04:00)
[2017-08-20] MEDS: INSULIN NovoLIN REGULAR SUPPLEMENTAL SCALE SQ SCH ×6 (04:00→20:00)
[2017-08-20] MEDS: RESP: IPRATROPIUM 0.5 MG/2.5 ML NEB NEB SCH ×4 (04:25→22:00)
--- NOTE | 2017-08-20 05:01 | RADRPT ---
EXAM DATE/TIME: 08/20/2017 03:44 [place] COMPARISON: CHEST SINGLE AP, August 13, 2017, 6:13. INDICATIONS : Shortness of breath, possible pulmonary disease. MEDICAL HISTORY : Cardiovascular disease. Gastroesophageal reflux disease. Sepsis. SURGICAL HISTORY : Appendectomy. Hysterectomy. ENCOUNTER: Subsequent ACUITY: 2 weeks PAIN SCORE: Non-responsive. LOCATION: Bilateral chest FINDINGS: A single view of the chest demonstrates chronic interstitial changes and pleural thickening. No new i nfiltrate. Soft tissue calcifications left arm. Chronic dislocation left shoulder. CONCLUSION: 1. No new infiltrate. Cardiomegaly. Fareed Masterson MD on August 20, 2017 at 4:59 Board Certified Radiologist. This report was verified electronically.
[2017-08-20 05:29] LABS: INTERNATIONAL NORMALIZED RATIO 3.5 RATIO; PROTHROMBIN TIME - PATIENT 35.6 SEC (9.8-11.6)
[2017-08-20 05:34] LABS: AUTOMATED NEUTROPHIL # 8.2 TH/MM3 (1.8-7.7); BASOPHIL % 0.1 % (0.0-2.0); HEMATOCRIT 26.2 % (35.0-46.0); HEMOGLOBIN 8.8 GM/DL (11.6-15.3); LYMPHOCYTE # 0.2 TH/MM3 (1.0-4.8); MEAN CELL VOLUME 97.3 FL (80.0-100.0); MEAN CORPUSCULAR HEMOGLOBIN 32.8 PG (27.0-34.0); MEAN CORPUSCULAR HGB CONC 33.7 % (32.0-36.0); MEAN PLATELET VOLUME 7.8 FL (7.0-11.0); MONO % 2.1 % (0.0-8.0); MONOCYTE # 0.2 TH/MM3 (0-0.9); NEUT % 95.8 % (16.0-70.0); PLATELET COUNT 508 TH/MM3 (150-450); RED BLOOD COUNT 2.69 MIL/MM3 (4.00-5.30); RED CELL DISTRIBUTION WIDTH 17.5 % (11.6-17.2); WHITE BLOOD COUNT 8.6 TH/MM3 (4.0-11.0)
[2017-08-20] MEDS: ARTIFICIAL TEARS OPTH SOLN 15 ML BTL EACH EYE SCH ×3 (05:38→21:35)
[2017-08-20] MEDS: SODIUM CHLORIDE 0.9% FLUSH 10 ML FLUSH IV FLUSH SCH ×5 (05:38→21:41)
[2017-08-20] MEDS: hydrALAZINE HCL 50 MG TAB PO SCH ×3 (05:38→23:27)
[2017-08-20 05:45] LABS: BICARBONATE 31.7 MEQ/L (21.0-32.0); CALCIUM 8.3 MG/DL (8.5-10.1); CREATININE 0.76 MG/DL (0.50-1.00)
[2017-08-20] MEDS: CHLORHEXIDINE 0.12% (ORAL KIT) 15 ML CUP MT SCH ×2 (08:53→20:00)
[2017-08-20] MEDS: METOPROLOL TARTRATE 50 MG TAB PO SCH ×2 (08:54→21:33)
[2017-08-20] MEDS: LACTULOSE SYRUP 20 GM/30 ML CUP PO SCH ×2 (08:54→21:34)
[2017-08-20] MEDS: MUPIROCIN 2% OINT 1 APPLIC/GM SYR EACH NARE SCH ×2 (08:54→21:00)
[2017-08-20] MEDS: ZINC SULFATE 220 MG CAP PO SCH (08:55)
[2017-08-20] MEDS: DOCUSATE SODIUM 50 MG/SENNA 8.6 MG TAB PO SCH ×2 (08:55→21:00)
[2017-08-20] MEDS: FAMOTIDINE 20 MG TAB PO SCH ×2 (08:55→21:33)
[2017-08-20] MEDS: ASCORBIC ACID 500 MG TAB PO SCH (08:56)
[2017-08-20] MEDS: MORPHINE SULFATE ORAL SOLN 10 MG/0.5 ML SYRINGE PO PRN ×2 (08:56→12:01)
[2017-08-20] MEDS: DAPTOmycin INJ 500 MG in SODIUM CHLORIDE 0.9% INJ 100 ML IV SCH (10:45)
--- NOTE | 2017-08-20 20:52 | HHI.CCPN ---
Subjective Remarks/Hospital Course 76-year-old female resident of the [place]way presents with complaints of respiratory difficulty. Onset was today. She is also complaining with some chest discomfort. She denies productive cough. Her symptoms are moderate to severe with no exacerbating factors. This patient was reportedly just discharged from [facility] with discitis secondary to MRSA. 53: Afebrile. Early this a.m. patient still having respiratory difficulty noted metabolic acidosis with a bicarb level 13, sodium bicarbonate infusion continues. She noticed to have respiratory distress ABGs performed. Impending intubation 7.10. Patient noted to have KAY drain emanating from back with dressing taken down no area redness yellow fluid and KAY drain sent for wound culture analysis. Upon further investigation patient's brother at bedside patient had lumbar hardware removed from [facility] in [place] approximately 6 weeks ago secondary to hardware eroding through the back and could be visualized on site. 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 Gottlieb cultures are pending. Attempts at medical record release forms from [facility] are pending. Patient previously last week at [facility] for acute kidney injury/urinary tract infection, attempting to obtain medical record. Patient was discharged approximately 2-3 days ago per report. This a.m. patient went into A. fib RVR with a heart rate in the 150s patient was given metoprolol 2 doses heart rate 112, patient is known to have chronic atrial fibrillation previously on Cardizem and digoxin 0.125 IV 1 dose Cardizem reinitiated. Discussion with patient regarding intubation and patient' s brother at bedside patient desires aggressive measures be undertaken patient requests intubation if needed and to remain a full code. Noted open areas skin wound areas on the lower extremities well-healed skin graft site left thigh wound care has been consulted. Palliative care also has been consulted to define goals of care. 08/05: Patient noted with elevated INR, Coumadin has been discontinued for 2 days. Vitamin K ordered. No active signs of bleeding. Patient on sedation vacation following commands. Afib rate controlled 70's-80's since addition to p.o. Cardizem. 6: Patient is currently on PSV trial FiO2 35%. Minimal secretions. Tolerating tube feeds. No bowel movement yesterday. Follows commands. 08/08: Temperature currently 98.8. Adequate weaning parameters however no cough leak. We will give dexamethasone 1 day and recheck cuff leak in a.m. Awake and follows commands. Transaminases normalized. Creatinine continues to slowly rise. 08/09: No events overnight. Patient is lethargic, easily arousable, tolerating CPAP at 10/5. T-max of 99.9. Still no cuff leak. Urine output is appropriate , with 3650 mL's over the last 24 hours. No family present at bedside. 08/10: No events over the night. Patient is awake, complaining of back pain, on fentanyl at 150 mics/hr. Tolerating CPAP 15/5. Afebrile over the night, with a T-max of 98.8. Negative fluid balance over the last 24 hours, -500 cc. 08/11: Patient remains intubated and sedated. She did well over the night. T- max of 98.6. She continues to be on fentanyl drip for back pain, asleep, easily arousable, follows commands. 08/12: No events over the night. Patient remains intubated, on fentanyl drip, easily arousable, following commands. Great response to diuretics, more than 3600 mL's urine output. Patient tolerated CPAP well yesterday but after being cleaned she developed tachycardia and tachypnea requiring full support. T-max of 99.3. 08/13: No events over the night. T-max of 98.6. She responded great to diuresis post Lasix, negative more than 3.3 L over the last 24 hours. She remains on fentanyl drip, lethargic, easily arousable. Oxygenation is unchanged. Chest x-ray reviewed, ET tube is in good position, 3 cm above paulo , unchanged bilateral opacities. 08/14: Patient remains intubated, on fentanyl infusion at 250 mcg/hour. T-max of 99.7. Negative almost 1 L over last 24 hours. Being but easily arousable, denies any complaints. On CPAP 12/5 tolerating well. 08/15 Patient is lying in bed in NAD. On BIPAP 01/09 with 50% FIO2. Afebrile. s/p extubation yesterday. 08/16 Patient was placed on BIPAP overnight. Afebrile 08/17 Patient is on 5L oxygen, afebrile. 08/18 No events overnight. Patient used BIPAP for 4 hrs overnight. 08/19 No events overnight. On 5L oxygen. Afebrile Subjective: 08/20 On 5 L NC, appears tachypneic. Afebrile. Objective Vital Signs Date Time Temp Pulse Resp B/P (MAP) Pulse Ox O2 Delivery O2 Flow Rate FiO2 08/20/17 18:00 95 08/20/17 16:00 98.6 28 123/61 (81) 100 08/20/17 08:10 Nasal Cannula 3.00 08/18/17 23:09 40 Intake and Output 08/20/17 08/20/17 08/21/17 08:00 16:00 00:00 Intake Total 340 ml 960 ml Output Total 435 ml 487 ml Balance -95 ml 473 ml Result Diagram: 08/20/17 0430 08/20/17 0430 Imaging Last Impressions Chest X-Ray 08/18/17 0000 Signed Impressions: Service Date/Time: August 10:12 - CONCLUSION: 1. Patchy bilateral airspace disease and areas of pleural thickening, unchanged. 2. Stable cardiomegaly. 3. Interval removal of the endotracheal and nasogastric tubes. 4. Stable soft tissue calcification/ossification over the left humerus/shoulder Rogelio Santos MD Lumbar Spine CT 08/04/17 0000 Signed Impressions: Service Date/Time: August 13:46 - CONCLUSION: 1. There is low density in the soft tissues at the recent laminectomy site L4-L5 measuring up to 2.4 cm in thickness with out deformity of the posterior thecal sac at the laminectomy site. 2. Stable anterolisthesis at L5-S1 with bony fusion. 3. 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 Maykel Singh MD Abdomen/Pelvis CT 08/04/17 0000 Signed Impressions: Service Date/Time: August 13:46 - CONCLUSION: 1. There is stool diffusely throughout the colon suggesting constipation. 2. The solid organs of the abdomen are grossly intact. 3. No free air free fluid seen within the abdomen. No abscess is identified. 4. Small amount of free fluid within the abdomen. 5. Bilateral pleural effusions and consolidation. 6. Cardiomegaly. 7. 2 mm nonobstructing stone in the lower pole collecting system of the right kidney. 8. Anasarca. Mil Toro MD Abdomen Fluoroscopy 08/04/17 0000 Signed Impressions: Service Date/Time: August 17:00 - CONCLUSION: Uncomplicated nasoenteric suction type catheter (NGT) placement as above. Librado Hernandez MD Procedures 08/04 -placement of NG tube IR Objective Remarks GENERAL: Patient is 76 yo lying in bed, awake, confused. SKIN: Warm and dry. KAY drain in back, her back pad is soaked with serous fluid ?draining around KAY?. There is no exudative drainage at drain site. HEAD: Normocephalic. EYES: No scleral icterus. No injection or drainage. NECK: Supple, trachea midline. No JVD or lymphadenopathy. CARDIOVASCULAR: Regular rate and rhythm without murmurs, gallops, or rubs. RESPIRATORY: Tachypneic, no accessory muscle use. Clear to auscultation bilaterally. GASTROINTESTINAL: Abdomen soft, non-tender, nondistended. Bowel sounds present. MUSCULOSKELETAL: No cyanosis, trace edema. Neuro: Awake, confused, does not answer questions of orientation. Moves all extremities Date of Insertion: August 04, 2017 A/P Problem List: (1) Afib ICD Code: I48.91 - Unspecified atrial fibrillation Status: Acute (2) EMIR (acute kidney injury) ICD Code: N17.9 - Acute kidney failure, unspecified Status: Acute (3) CKD (chronic kidney disease) stage 4, GFR 15-29 ml/min ICD Code: N18.4 - Chronic kidney disease, stage 4 (severe) Status: Acute (4) Renal insufficiency ICD Code: N28.9 - Disorder of kidney and ureter, unspecified Status: Acute (5) Chronic pain ICD Code: G89.29 - Other chronic pain Status: Acute (6) Atrial fibrillation with RVR ICD Code: I48.91 - Unspecified atrial fibrillation Status: Acute (7) Hyperkalemia ICD Code: E87.5 - Hyperkalemia Status: Acute (8) Severe sepsis ICD Code: A41.9 - Sepsis, unspecified organism; R65.20 - Severe sepsis without septic shock (9) Metabolic acidosis ICD Code: E87.2 - Acidosis Status: Resolved (10) Hypoglycemia ICD Code: E16.2 - Hypoglycemia, unspecified Status: Acute (11) Cardiomegaly ICD Code: I51.7 - Cardiomegaly Status: Acute Assessment and Plan Neuro/Psych: Chronic pain syndrome Status post removal of lumbar/sacral L5/S1 hardware 06/19 Chronic opioid use Monitor neuro status, avoid sedatives KAY drain in place Acetaminophen 650 mg every 6 hours as needed for temperature greater than 101.5 Respiratory: Acute hypercapnic respiratory failure -resolved. Mild pulmonary hypertension COPD/asthma Continue with oxygen keep sats >92% Ipratropium aerosols every 6 hours Albuterol allergy NIPPV PRN for resp distress WEan Solumederol 40mg IV Q8 LAsix 20 mg IV x1 Cardiovascular: A. fib RVR-resolved History of essential hypertension Chronic systolic congestive heart failure Chronic atrial fibrillation Monitor HR and BP keep MAP>65mmHg On Cardizem 60 mg Q6, Lopressor 50mg Q12, add Hydralazine 50mg Q8 08/05 Echo- The left ventricular systolic function is moderately reduced with an EF 40-45%. Dyskinetic apical cap wall motion. The right ventricle is moderately dilated. Moderate mitral valve regurgitation. Aortic valve sclerosis is present. There is mild to moderate tricuspid valve regurgitation. There is estimated mild pulmonary hypertension present (range 40-50 mmHg). Home medications include isosorbide dinitrate 30 mg daily, metoprolol succinate 50 mg daily lisinopril 2.5 mg daily. These are currently on hold On Coumadin, dosing per pharmacy Renal: Acute renal insufficiency incentive chronic kidney disease stage IV Right renal stone/no hydronephrosis Monitor renal function, I/O's, electrolytes replacement per protocol FEN/GI: On PO diet Famotidine 10 mg twice daily for GI prophylaxis. Docusate sodium/senna 1 tablet twice daily, lactulose 30 cc twice daily for bowel regimen Heme/ID: Anemia of chronic disease Thrombocytopenia Leukocytosis MRSA Discitis Chronic warfarin use Funguria Continue daptomycin. ID is following. CK 66 on 08/16 Coumadin per pharmacy Medical records release obtained for medical records at [facility] and [facility] - The patient has a history of recent surgery at [facility] in [place]. She underwent removal of hardware from the lumbosacral spine L1-S1 because of exposed loosened hardware from prior surgery. She reportedly had surgery of the lumbosacral spine 10 years prior. The surgery at [facility] was on 06/27. Intraoperative culture reportedly had MRSA. She was put on antibiotics by infectious disease to complete on 07/29/2017. She was receiving intravenous vancomycin. The patient completed the course of the vancomycin. There is a notation in the medical record that she is ALLERGIC TO VANCOMYCIN. She is currently on daptomycin. She continues with a drainage catheter in the lumbosacral region from prior surgery. She was seen by infectious disease physician at [facility] and reportedly will be in need of IV antibiotics for 6 weeks because of osteomyelitis of the lumbar spine. 08/06 UTI -Denise-fluconazole 200mg/d 08/04- Blood Cultures -NGTD Endocrine: Glucose monitoring per ICU protocol -- SSI Prophylaxis: GI Prophylaxis Famotidine BID DVT Prophylaxis -- SCDs -- INR 3.9 today Lines: PICC line Palliative care is following Level 2 follow-up Tess Hines MD August 20, 2017 20:52
[2017-08-20] MEDS ORDERED: FUROSEMIDE 20 MG/2 ML VIAL IV PUSH ONE (21:00)
[2017-08-21] VITALS (26 sets, daily range): BP systolic 119–147; BP diastolic 61–78; PULSE 68–92; RESP 9–40; TEMP 97.7–98.8; O2SAT 95–100
[2017-08-21] MEDS: MEROPENEM INJ 1,000 MG in SODIUM CHLORIDE 0.9% INJ 100 ML IV SCH ×3 (02:00→17:21)
[2017-08-21] MEDS: CHLORHEXIDINE GLUCONATE 2 % 1 PACK (2 CLOTHS) TOP SCH (03:59)
[2017-08-21] MEDS: INSULIN NovoLIN REGULAR SUPPLEMENTAL SCALE SQ SCH ×6 (03:59→22:01)
[2017-08-21] MEDS: methylPREDNISolone SOD SUCC 40 MG/1 ML VIAL IV PUSH SCH ×3 (03:59→22:00)
[2017-08-21] MEDS: RESP: IPRATROPIUM 0.5 MG/2.5 ML NEB NEB SCH ×4 (04:00→21:33)
[2017-08-21 06:13] LABS: ALBUMIN 2.4 GM/DL (3.4-5.0); AST (GOT) 47 U/L (15-37); BICARBONATE 31.8 MEQ/L (21.0-32.0); BLOOD UREA NITROGEN 41 MG/DL (7-18); CALCIUM 8.6 MG/DL (8.5-10.1); CHLORIDE 103 MEQ/L (98-107); CREATININE 0.83 MG/DL (0.50-1.00); GLOMERULAR FILTRATION RATE 67 ML/MIN (>89); GLUCOSE,RANDOM 115 MG/DL (74-106); SODIUM (NA) 143 MEQ/L (136-145)
[2017-08-21 06:17] LABS: ALKALINE PHOSPHATASE 125 U/L (45-117); ALT (GPT) 60 U/L (10-53); TOTAL BILIRUBIN ADULT 0.7 MG/DL (0.2-1.0); TOTAL PROTEIN 8.3 GM/DL (6.4-8.2)
[2017-08-21] MEDS: SODIUM CHLORIDE 0.9% FLUSH 10 ML FLUSH IV FLUSH SCH ×5 (06:24→22:02)
[2017-08-21] MEDS: ARTIFICIAL TEARS OPTH SOLN 15 ML BTL EACH EYE SCH ×3 (06:24→22:03)
[2017-08-21] MEDS: hydrALAZINE HCL 50 MG TAB PO SCH ×3 (06:24→22:03)
[2017-08-21] MEDS: DILTIAZEM HCL 60 MG TAB PO SCH ×3 (06:24→17:21)
[2017-08-21 07:16] LABS: INTERNATIONAL NORMALIZED RATIO 2.3 RATIO; PROTHROMBIN TIME - PATIENT 23.2 SEC (9.8-11.6)
[2017-08-21 07:25] LABS: AUTOMATED NEUTROPHIL # 9.8 TH/MM3 (1.8-7.7); BASOPHIL % 0.2 % (0.0-2.0); HEMATOCRIT 27.4 % (35.0-46.0); HEMOGLOBIN 9.1 GM/DL (11.6-15.3); LYMPH % 2.6 % (9.0-44.0); LYMPHOCYTE # 0.3 TH/MM3 (1.0-4.8); MEAN CORPUSCULAR HEMOGLOBIN 32.6 PG (27.0-34.0); MEAN CORPUSCULAR HGB CONC 33.3 % (32.0-36.0); MEAN PLATELET VOLUME 7.9 FL (7.0-11.0); MONO % 7.6 % (0.0-8.0); MONOCYTE # 0.8 TH/MM3 (0-0.9); NEUT % 89.6 % (16.0-70.0); PLATELET COUNT 582 TH/MM3 (150-450); RED CELL DISTRIBUTION WIDTH 17.9 % (11.6-17.2); WHITE BLOOD COUNT 10.9 TH/MM3 (4.0-11.0)
[2017-08-21] MEDS: FAMOTIDINE 20 MG TAB PO SCH ×2 (08:40→22:03)
[2017-08-21] MEDS: ASCORBIC ACID 500 MG TAB PO SCH (08:40)
[2017-08-21] MEDS: METOPROLOL TARTRATE 50 MG TAB PO SCH ×2 (08:40→22:02)
[2017-08-21] MEDS: MORPHINE SULFATE ORAL SOLN 10 MG/0.5 ML SYRINGE PO PRN (08:41)
[2017-08-21] MEDS: MUPIROCIN 2% OINT 1 APPLIC/GM SYR EACH NARE SCH ×2 (08:41→22:01)
[2017-08-21] MEDS: DOCUSATE SODIUM 50 MG/SENNA 8.6 MG TAB PO SCH ×2 (08:42→21:00)
[2017-08-21] MEDS: LACTULOSE SYRUP 20 GM/30 ML CUP PO SCH ×2 (08:42→21:00)
[2017-08-21] MEDS: CHLORHEXIDINE 0.12% (ORAL KIT) 15 ML CUP MT SCH ×2 (08:42→20:00)
[2017-08-21] MEDS: ZINC SULFATE 220 MG CAP PO SCH (08:48)
[2017-08-21] MEDS: DAPTOmycin INJ 500 MG in SODIUM CHLORIDE 0.9% INJ 100 ML IV SCH (11:29)
--- NOTE | 2017-08-21 18:41 | HHI.CCPN ---
Subjective Remarks/Hospital Course 76-year-old female resident of the intermediate presents with complaints of respiratory difficulty. Onset was today. She is also complaining with some chest discomfort. She denies productive cough. Her symptoms are moderate to severe with no exacerbating factors. This patient was reportedly just discharged from [facility] with discitis secondary to MRSA. 53: Afebrile. Early this a.m. patient still having respiratory difficulty noted metabolic acidosis with a bicarb level 13, sodium bicarbonate infusion continues. She noticed to have respiratory distress ABGs performed. Impending intubation 7.10. Patient noted to have KAY drain emanating from back with dressing taken down no area redness yellow fluid and KAY drain sent for wound culture analysis. Upon further investigation patient's brother at bedside patient had lumbar hardware removed from [facility] in [place] approximately 6 weeks ago secondary to hardware eroding through the back and could be visualized on site. 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 Gottlieb cultures are pending. Attempts at medical record release forms from [facility] are pending. Patient previously last week at [facility] for acute kidney injury/urinary tract infection, attempting to obtain medical record. Patient was discharged approximately 2-3 days ago per report. This a.m. patient went into A. fib RVR with a heart rate in the 150s patient was given metoprolol 2 doses heart rate 112, patient is known to have chronic atrial fibrillation previously on Cardizem and digoxin 0.125 IV 1 dose Cardizem reinitiated. Discussion with patient regarding intubation and patient' s brother at bedside patient desires aggressive measures be undertaken patient requests intubation if needed and to remain a full code. Noted open areas skin wound areas on the lower extremities well-healed skin graft site left thigh wound care has been consulted. Palliative care also has been consulted to define goals of care. 08/05: Patient noted with elevated INR, Coumadin has been discontinued for 2 days. Vitamin K ordered. No active signs of bleeding. Patient on sedation vacation following commands. Afib rate controlled 70's-80's since addition to p.o. Cardizem. 6: Patient is currently on PSV trial FiO2 35%. Minimal secretions. Tolerating tube feeds. No bowel movement yesterday. Follows commands. 08/08: Temperature currently 98.8. Adequate weaning parameters however no cough leak. We will give dexamethasone 1 day and recheck cuff leak in a.m. Awake and follows commands. Transaminases normalized. Creatinine continues to slowly rise. 08/09: No events overnight. Patient is lethargic, easily arousable, tolerating CPAP at 10/5. T-max of 99.9. Still no cuff leak. Urine output is appropriate , with 3650 mL's over the last 24 hours. No family present at bedside. 08/10: No events over the night. Patient is awake, complaining of back pain, on fentanyl at 150 mics/hr. Tolerating CPAP 15/5. Afebrile over the night, with a T-max of 98.8. Negative fluid balance over the last 24 hours, -500 cc. 08/11: Patient remains intubated and sedated. She did well over the night. T- max of 98.6. She continues to be on fentanyl drip for back pain, asleep, easily arousable, follows commands. 08/12: No events over the night. Patient remains intubated, on fentanyl drip, easily arousable, following commands. Great response to diuretics, more than 3600 mL's urine output. Patient tolerated CPAP well yesterday but after being cleaned she developed tachycardia and tachypnea requiring full support. T-max of 99.3. 08/13: No events over the night. T-max of 98.6. She responded great to diuresis post Lasix, negative more than 3.3 L over the last 24 hours. She remains on fentanyl drip, lethargic, easily arousable. Oxygenation is unchanged. Chest x-ray reviewed, ET tube is in good position, 3 cm above paulo , unchanged bilateral opacities. 08/14: Patient remains intubated, on fentanyl infusion at 250 mcg/hour. T-max of 99.7. Negative almost 1 L over last 24 hours. Being but easily arousable, denies any complaints. On CPAP 12/5 tolerating well. 08/15 Patient is lying in bed in NAD. On BIPAP 01/09 with 50% FIO2. Afebrile. s/p extubation yesterday. 08/16 Patient was placed on BIPAP overnight. Afebrile 08/17 Patient is on 5L oxygen, afebrile. 08/18 No events overnight. Patient used BIPAP for 4 hrs overnight. 08/19 No events overnight. On 5L oxygen. Afebrile 08/20 On 5 L NC, appears tachypneic. Afebrile. Subjective: 08/21 Says she isn't feeling well today but unable to localize anything specific. Afebrile. No leukocytosis. No chest pain. She appears slightly tachypneic but denies shortness of breath. There is serous drainage around her lumbar drain site that is soaking pads. Objective Vital Signs Date Time Temp Pulse Resp B/P (MAP) Pulse Ox O2 Delivery O2 Flow Rate FiO2 08/21/17 18:00 85 08/21/17 16:00 97.7 13 119/67 (84) 100 08/21/17 07:55 Nasal Cannula 3.00 08/18/17 23:09 40 Intake and Output 08/21/17 08/21/17 08/22/17 08:00 16:00 00:00 Intake Total 440 ml 200 ml 960 ml Output Total 800 ml 350 ml Balance -360 ml 200 ml 610 ml Result Diagram: 08/21/17 0526 08/21/17 0526 Imaging Last Impressions Chest X-Ray 08/18/17 0000 Signed Impressions: Service Date/Time: August 10:12 - CONCLUSION: 1. Patchy bilateral airspace disease and areas of pleural thickening, unchanged. 2. Stable cardiomegaly. 3. Interval removal of the endotracheal and nasogastric tubes. 4. Stable soft tissue calcification/ossification over the left humerus/shoulder Rogelio Santos MD Lumbar Spine CT 08/04/17 0000 Signed Impressions: Service Date/Time: August 13:46 - CONCLUSION: 1. There is low density in the soft tissues at the recent laminectomy site L4-L5 measuring up to 2.4 cm in thickness with out deformity of the posterior thecal sac at the laminectomy site. 2. Stable anterolisthesis at L5-S1 with bony fusion. 3. 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 Maykel Singh MD Abdomen/Pelvis CT 08/04/17 0000 Signed Impressions: Service Date/Time: August 13:46 - CONCLUSION: 1. There is stool diffusely throughout the colon suggesting constipation. 2. The solid organs of the abdomen are grossly intact. 3. No free air free fluid seen within the abdomen. No abscess is identified. 4. Small amount of free fluid within the abdomen. 5. Bilateral pleural effusions and consolidation. 6. Cardiomegaly. 7. 2 mm nonobstructing stone in the lower pole collecting system of the right kidney. 8. Anasarca. Mil Toro MD Abdomen Fluoroscopy 08/04/17 0000 Signed Impressions: Service Date/Time: August 17:00 - CONCLUSION: Uncomplicated nasoenteric suction type catheter (NGT) placement as above. Librado Hernandez MD Procedures 08/04 -placement of NG tube IR Objective Remarks GENERAL: Patient is 76 yo lying in bed, awake. Kyphotic. SKIN: Warm and dry. KAY drain in back, her back pad is soaked with serous fluid. There is no exudative drainage at drain site. The drain bulb is now not holding suction (though it was working yesterday and there was serous drainage around the drain as well). Two large sacral decubitus ulcers with eschar. HEAD: Normocephalic. EYES: No scleral icterus. No injection or drainage. NECK: Supple, trachea midline. No JVD or lymphadenopathy. CARDIOVASCULAR: Regular rate and rhythm without murmurs, gallops, or rubs. RESPIRATORY: Tachypneic, no accessory muscle use. Has anterior rales. GASTROINTESTINAL: Abdomen soft, non-tender, nondistended. Bowel sounds present. : Fam in place. MUSCULOSKELETAL: No cyanosis, trace edema. Neuro: More alert today and conversant. Moves all extremities Date of Insertion: August 04, 2017 A/P Problem List: (1) Afib ICD Code: I48.91 - Unspecified atrial fibrillation Status: Acute (2) EMIR (acute kidney injury) ICD Code: N17.9 - Acute kidney failure, unspecified Status: Acute (3) CKD (chronic kidney disease) stage 4, GFR 15-29 ml/min ICD Code: N18.4 - Chronic kidney disease, stage 4 (severe) Status: Acute (4) Renal insufficiency ICD Code: N28.9 - Disorder of kidney and ureter, unspecified Status: Acute (5) Chronic pain ICD Code: G89.29 - Other chronic pain Status: Acute (6) Atrial fibrillation with RVR ICD Code: I48.91 - Unspecified atrial fibrillation Status: Acute (7) Hyperkalemia ICD Code: E87.5 - Hyperkalemia Status: Acute (8) Severe sepsis ICD Code: A41.9 - Sepsis, unspecified organism; R65.20 - Severe sepsis without septic shock (9) Metabolic acidosis ICD Code: E87.2 - Acidosis Status: Resolved (10) Hypoglycemia ICD Code: E16.2 - Hypoglycemia, unspecified Status: Acute (11) Cardiomegaly ICD Code: I51.7 - Cardiomegaly Status: Acute Assessment and Plan Neuro/Psych: Chronic pain syndrome Status post removal of lumbar/sacral L5/S1 hardware 06/19 Chronic opioid use Monitor neuro status, avoid sedatives KAY drain in place. Bulb is not holding suction, replaced the KAY bulb without improvement. Lumbar CT obtained to determine drain position and evaluate for residual fluid or abscess Per Dr. Wing, has appointment with [facility] Neurosurgery 08/23 for followup and drain management. Respiratory: Acute hypercapnic respiratory failure -resolved. Mild pulmonary hypertension COPD/asthma Continue with oxygen keep sats >92% Ipratropium aerosols every 6 hours Albuterol allergy Wean Solumederol 40mg IV Q12. LAsix 20 mg IV x1 check cxr. Cardiovascular: A. fib RVR-resolved History of essential hypertension Chronic systolic congestive heart failure Chronic atrial fibrillation Monitor HR and BP keep MAP>65mmHg On Cardizem 60 mg Q6, Lopressor 50mg Q12, add Hydralazine 50mg Q8 08/05 Echo- The left ventricular systolic function is moderately reduced with an EF 40-45%. Dyskinetic apical cap wall motion. The right ventricle is moderately dilated. Moderate mitral valve regurgitation. Aortic valve sclerosis is present. There is mild to moderate tricuspid valve regurgitation. There is estimated mild pulmonary hypertension present (range 40-50 mmHg). Home medications include isosorbide dinitrate 30 mg daily, metoprolol succinate 50 mg daily lisinopril 2.5 mg daily. These are currently on hold On Coumadin, dosing per pharmacy as per below. Renal: Acute renal insufficiency incentive chronic kidney disease stage IV Right renal stone/no hydronephrosis Monitor renal function, I/O's, electrolytes replacement per protocol REplace fam 08/21 FEN/GI: On PO diet Famotidine 10 mg twice daily for GI prophylaxis. Docusate sodium/senna 1 tablet twice daily, lactulose 30 cc twice daily for bowel regimen Heme/ID: Anemia of chronic disease Thrombocytopenia Leukocytosis MRSA Discitis Chronic warfarin use Funguria Sacral decubitus ulcers - wound care consulted.. Continue daptomycin. ID is following. CK 66 on 08/16 Coumadin per pharmacy. Has been on hold since 08/17 because INR had increased significantly with modest dose. Now INR 2.3 and pharmacist recommends warfarin 0.5 mg po every other day but will continue to hold for now until drain evaluated by neurosurgery. Medical records release obtained for medical records at [facility]/[place] and [facility] - The patient has a history of recent surgery at [facility] in [place]. She underwent removal of hardware from the lumbosacral spine L1-S1 because of exposed loosened hardware from prior surgery. She reportedly had surgery of the lumbosacral spine 10 years prior. The surgery at [facility] was on 06/27. Intraoperative culture reportedly had MRSA. She was put on antibiotics by infectious disease to complete on 07/29/2017. She was receiving intravenous vancomycin. The patient completed the course of the vancomycin. There is a notation in the medical record that she is ALLERGIC TO VANCOMYCIN. She is currently on daptomycin. She continues with a drainage catheter in the lumbosacral region from prior surgery. She was seen by infectious disease physician at [facility] and reportedly will be in need of IV antibiotics for 6 weeks because of osteomyelitis of the lumbar spine. 08/06 UTI -Denise-fluconazole 200mg/d 08/04- Blood Cultures -NGTD Endocrine: Glucose monitoring per ICU protocol -- SSI Prophylaxis: GI Prophylaxis Famotidine BID DVT Prophylaxis -- SCDs -- INR 2.3 today provides DVT prophylaxis. Lines: PICC line Palliative care is following Level 2 follow-up Tess Hines MD August 21, 2017 18:41
[2017-08-21] MEDS ORDERED: IOHEXOL 350 MG/ML 10 ML VIAL (for RAD DIAG) IVCONTRAST ONE ×2 (20:55→21:14)
--- NOTE | 2017-08-21 21:36 | RADRPT ---
EXAM DATE/TIME: 08/21/2017 20:47 [facility] COMPARISON: FLUORO GUIDED NG TUBE PLACEMENT, August 04, 2017, 17:00. CT LUMBAR SPINE W/O CONTRAST, August 04, 2017, 13 :46. INDICATIONS : Evaluate drainage site. IV CONTRAST: 91 cc Omnipaque 350 (iohexol) IV RADIATION DOSE: 34.88 CTDIvol (mGy) MEDICAL HISTORY : Cardiovascular disease. Gastroesophageal reflux disease. Hepatitis C. SURGICAL HISTORY : Appendectomy. Hysterectomy. ENCOUNTER: Initial ACUITY: 1 day PAIN SCALE: 0/10 LOCATION: lumbar TECHNIQUE: Volumetric scanning of the lumbar spine was performed. Multiplanar reconstructions in the sagittal, coronal and oblique axial planes were performed. Using automated exposure control and adjustment of the mA and/or kV according to patient size, radiation dose was kept as low as reasonably achievable t o obtain optimal diagnostic quality images. DICOM format image data is available electronically for review and comparison. FINDINGS: Postsurgical features of L4 laminectomy with prior anterior plate and screw fixation at L4-5 with int erbody fusion at L4-5. There are also lucent tracks from previous previous posterior fixation hardwar e extending to S2. There is also an anterior screw at S1 without bridging hardware. Hardware appeared intact. Diffuse osteopenia with redemonstration of prominent Schmorl's nodes in the superior plate o f L1. Vertebral body heights are otherwise intact. There is a surgical drain entering at approximatel y L1 level and extending inferiorly to mid L4 level. There is diffuse soft tissue edema with ill-defi daria stranding and fluid at the surgical bed most extending to the mid L5 level. This measures up to 2 .7 cm in AP dimension. However, there is no significant focal peripherally enhancing fluid collection . Remainder of the exam is unchanged from recent prior. There is a diffuse disc bulge at L2-3 without s ignificant central canal narrowing. There is also diffuse disc bulge with bilateral facet arthropathy at L3-4 effacing the anterior thecal sac with mild caudal bilateral neuroforaminal narrowing. CONCLUSION: 1. Postsurgical features of removal of posterior fixation hardware and placement of anterior fixation hardware at L4-5 and S1 with laminectomy at L4. 2. Surgical drain extends to the mid L4 level in the posterior lumbar soft tissues. There is low dens ity soft tissue stranding and fluid measuring up to 2.7 cm and thickness extending just caudal from t he surgical drain without peripherally enhancing focal fluid collection. Librado Hernandez MD on August 21, 2017 at 21:21 Board Certified Radiologist. This report was verified electronically.
--- NOTE | 2017-08-21 21:40 | RADRPT ---
EXAM DATE/TIME: 08/21/2017 21:23 [facility] COMPARISON: CHEST SINGLE AP, August 20, 2017, 3:44. INDICATIONS : Short of breath. MEDICAL HISTORY : Cardiovascular disease. Gastroesophageal reflux disease. Sepsis. SURGICAL HISTORY : Appendectomy. Hysterectomy. ENCOUNTER: Subsequent ACUITY: 1 week PAIN SCORE: 0/10 LOCATION: Bilateral chest FINDINGS: No new focal pleural or parenchymal opacities. Redemonstration of chronic interstitial changes and pl eural thickening. Cardiac silhouette is enlarged. Soft tissue calcifications are again noted in the l eft upper extremity. Remainder of the exam is unchanged. CONCLUSION: 1. Compensated cardiomegaly. 2. No acute abnormality or significant interval change. Librado Hernandez MD on August 21, 2017 at 21:37 Board Certified Radiologist. This report was verified electronically.
[2017-08-21] MEDS ORDERED: FUROSEMIDE 20 MG/2 ML VIAL IV PUSH ONE (23:30)
[2017-08-22] VITALS (26 sets, daily range): BP systolic 123–144; BP diastolic 64–75; PULSE 65–95; RESP 24–45; TEMP 97.9–98.4; O2SAT 95–99
[2017-08-22] MEDS: DILTIAZEM HCL 60 MG TAB PO SCH ×4 (00:13→17:59)
[2017-08-22] MEDS: CHLORHEXIDINE GLUCONATE 2 % 1 PACK (2 CLOTHS) TOP SCH (00:14)
[2017-08-22] MEDS: MEROPENEM INJ 1,000 MG in SODIUM CHLORIDE 0.9% INJ 100 ML IV SCH ×2 (00:14→08:33)
[2017-08-22] MEDS: RESP: IPRATROPIUM 0.5 MG/2.5 ML NEB NEB SCH ×4 (03:51→21:20)
[2017-08-22] MEDS: INSULIN NovoLIN REGULAR SUPPLEMENTAL SCALE SQ SCH ×6 (04:00→21:19)
[2017-08-22 04:59] LABS: BILIRUBIN, URINE NEG (NEG); BLOOD, URINE SMALL (NEG); CALCIUM OXALATE CRYSTALS,URINE RARE /hpf; GLUCOSE,URINE NEG (NEG); KETONE, URINE NEG (NEG); MUCUS URINE FEW /lpf (OCC); NITRITE,URINE NEG (NEG); PH, URINE 7.5 (5.0-8.5); RENAL EPITHELIAL CELLS 1 /hpf; SQUAMOUS EPITHELIAL CELL URINE 1 /hpf (0-5); TRANSITIONAL EPI CELLS, URINE <1 /hpf; URINE COLOR LIGHT-YELLOW (YELLW/STRAW); URINE LEUKOCYTE ESTERASE LARGE (NEG)
[2017-08-22] MEDS: SODIUM CHLORIDE 0.9% FLUSH 10 ML FLUSH IV FLUSH SCH ×5 (06:00→22:00)
[2017-08-22] MEDS: hydrALAZINE HCL 50 MG TAB PO SCH ×3 (06:00→20:49)
[2017-08-22] MEDS: ARTIFICIAL TEARS OPTH SOLN 15 ML BTL EACH EYE SCH ×3 (06:00→22:00)
[2017-08-22 08:08] LABS: INTERNATIONAL NORMALIZED RATIO 1.6 RATIO; PROTHROMBIN TIME - PATIENT 16.1 SEC (9.8-11.6)
[2017-08-22 08:11] LABS: AUTOMATED NEUTROPHIL # 7.6 TH/MM3 (1.8-7.7); BASOPHIL % 0.2 % (0.0-2.0); HEMATOCRIT 28.1 % (35.0-46.0); HEMOGLOBIN 9.2 GM/DL (11.6-15.3); LYMPH % 4.1 % (9.0-44.0); LYMPHOCYTE # 0.4 TH/MM3 (1.0-4.8); MEAN CELL VOLUME 97.2 FL (80.0-100.0); MEAN CORPUSCULAR HGB CONC 32.9 % (32.0-36.0); MEAN PLATELET VOLUME 7.7 FL (7.0-11.0); MONO % 10.2 % (0.0-8.0); MONOCYTE # 0.9 TH/MM3 (0-0.9); NEUT % 85.5 % (16.0-70.0); PLATELET COUNT 553 TH/MM3 (150-450); RED BLOOD COUNT 2.89 MIL/MM3 (4.00-5.30); RED CELL DISTRIBUTION WIDTH 18.7 % (11.6-17.2); WHITE BLOOD COUNT 8.8 TH/MM3 (4.0-11.0)
[2017-08-22 08:28] LABS: BICARBONATE 30.7 MEQ/L (21.0-32.0); CALCIUM 8.7 MG/DL (8.5-10.1); CREATININE 0.9 MG/DL (0.50-1.00)
[2017-08-22] MEDS: DOCUSATE SODIUM 50 MG/SENNA 8.6 MG TAB PO SCH ×2 (08:32→20:49)
[2017-08-22] MEDS: METOPROLOL TARTRATE 50 MG TAB PO SCH ×2 (08:32→20:49)
[2017-08-22] MEDS: MUPIROCIN 2% OINT 1 APPLIC/GM SYR EACH NARE SCH ×2 (08:32→20:50)
[2017-08-22] MEDS: ASCORBIC ACID 500 MG TAB PO SCH (08:32)
[2017-08-22] MEDS: ZINC SULFATE 220 MG CAP PO SCH (08:32)
[2017-08-22] MEDS: FAMOTIDINE 20 MG TAB PO SCH ×2 (08:32→20:49)
[2017-08-22] MEDS: LACTULOSE SYRUP 20 GM/30 ML CUP PO SCH ×2 (08:33→20:50)
[2017-08-22] MEDS: CHLORHEXIDINE 0.12% (ORAL KIT) 15 ML CUP MT SCH ×2 (08:33→20:00)
[2017-08-22] MEDS: methylPREDNISolone SOD SUCC 40 MG/1 ML VIAL IV PUSH SCH ×2 (08:34→20:50)
--- NOTE | 2017-08-22 11:28 | HHI.IDPN ---
Note Infectious Disease Note Patient is awake and alert. Communicating. Feels okay. The therapy has just started working with her. She was put into a upright position with support in bed and respiratory to increase a little but she did not develop any significant distress. No fever. White blood cell count is down to normal. Chest x-ray is improved. Patient was extubated 08/14. 76-year-old white female who presented to the Emergency Department from custodial facility with respiratory distress. She was noted to be complaining also of chest discomfort. The patient was intubated and is currently on a ventilator. In the emergency department, the patient had heart rate of 144, temperature 100.9 and respiratory rate of 53. Lactic acid level was 9.4. She was recently diagnosed with acute renal failure at [facility] and was transferred to a custodial facility upon discharge there on 08/02/2017 . Evaluated at [facility] for altered mental status and also acute kidney disease. The patient has a history of recent surgery at [facility] in [place]. She underwent removal of hardware from the lumbosacral spine L4-S1 via posterior instrumentation because of exposed loosened hardware from prior surgery. Also underwent bilateral paraspinous muscle flaps and wound closure. Required double layer patch graft repair for small durotomy which occurred during surgery. She reportedly had surgery of the lumbosacral spine 10 years prior. The surgery at [facility] was on 06/27. Intraoperative culture reportedly had MRSA. She was put on antibiotics by infectious disease to complete on 07/29/2017. She was receiving intravenous vancomycin. She was seen by infectious disease physician at [facility] where she was noted to have acute renal failure. 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 PAST MEDICAL HISTORY: 1. L4-S1 fusion. Recent hardware removal. 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 The patient noted to have loosened hardware 2. Atrial fibrillation. 3. COPD, 4. Plasmacytoma, 5. Anemia, 6. Osteoarthritis, 7. Appendectomy, 8. Hysterectomy, 9. Tonsillectomy, 10. Cholecystectomy, 11. Gastroesophageal reflux disease surgery. ALLERGIES: VANCOMYCIN, ALBUTEROL, GABAPENTIN, IPRATROPIUM, IRON, PENICILLIN G, PROCHLORPERAZINE Antibiotics: Daptomycin. Meropenem. Meropenem. Current Medications Medications (Trade) Dose Ordered Sig/Jayne Route PRN Reason Start Time Stop Time Status Last Admin Dose Admin Metoprolol Tartrate (Lopressor Inj) 5 mg Q5M PRN IV PUSH HR > 100 08/03/17 16:45 08/15/17 03:21 Ascorbic Acid (Vitamin C) 500 mg DAILY PO 08/04/17 09:00 08/22/17 08:32 Cyclobenzaprine HCl (Flexeril) 10 mg Q8HR PRN PO Muscle Cramps 08/03/17 19:45 08/15/17 16:00 Fluticasone Propionate (Flonase Harvey Spr) 1 spray Q12HR EACH NARE 08/03/17 21:00 Future Hold 08/07/17 09:08 Morphine Sulfate (Msir) 15 mg Q4H PRN PO Moderate Pain 08/03/17 19:45 Future Hold Sodium Chloride (NS Flush) 10 ml Q8HR IV FLUSH 08/03/17 22:00 08/22/17 06:00 Zinc Sulfate (Zinc Sulfate) 220 mg DAILY PO 08/04/17 09:00 08/22/17 08:32 Sodium Chloride (NS Flush) 2 ml UNSCH PRN IV FLUSH FLUSH AFTER USING IV ACCESS 08/03/17 20:00 08/20/17 00:21 Sodium Chloride (NS Flush) 2 ml BID IV FLUSH 08/03/17 21:00 08/22/17 08:33 Morphine Sulfate (Morphine Inj) 2 mg Q2H PRN IV PUSH PAIN SCALE 6 TO 10 08/03/17 20:00 Future Hold 08/04/17 05:14 Ondansetron HCl (Zofran Inj) 4 mg Q6H PRN IV PUSH NAUSEA OR VOMITING 08/03/17 20:00 Miscellaneous Information ([facility]) 1 [id number] XX 08/03/17 20:00 08/03/17 22:46 Chlorhexidine Gluconate (Chlorhexidine 2% Cloth) Taper DAILY@04 TOP 08/04/17 04:00 07/31/18 03:59 08/20/17 04:00 Chlorhexidine Gluconate (Chlorhexidine 2% Cloth) 3 pack UNSCH PRN TOP HYGIENIC CARE 08/03/17 20:00 Senna/Docusate Sodium (Dina-Colace) 1 tab BID PO 08/03/17 21:00 08/22/17 08:32 Magnesium Hydroxide (Milk Of Magnesia Liq) 30 ml Q12H PRN PO Mild constipation 08/03/17 20:00 Sennosides (Senokot) 17.2 mg Q12H PRN PO Moderate constipation 08/03/17 20:00 Bisacodyl (Dulcolax Supp) 10 mg DAILY PRN RECTAL SEVERE CONSITIPATION 08/03/17 20:00 Lactulose (Lactulose Liq) 30 ml DAILY PRN PO SEVERE CONSITIPATION 08/03/17 20:00 Pharmacy Profile Note 0 ml @ 0 mls/hr UNSCH OTHER 08/04/17 03:45 Chlorhexidine Gluconate (Peridex 0.12% Liq) 15 ml BID@08,20 MT 08/04/17 20:00 08/22/17 08:33 Ipratropium Medina (Atrovent Neb) 0.5 mg Q6HR NEB NEB 08/04/17 16:00 08/14/17 16:08 Famotidine (Pepcid) 10 mg BID PO 08/05/17 21:00 08/22/17 08:32 Artificial Tears (Tears Naturale Opth Soln) 1 drop Q8HR EACH EYE 08/07/17 14:00 08/22/17 06:00 Acetaminophen (Tylenol 650 Mg/ 20 ml Liq) 650 mg Q6H PRN PO fever 08/07/17 14:00 Mupirocin (Bactroban Nasal 2% Oint) Taper BID EACH NARE 08/07/17 21:00 08/03/18 20:59 08/22/17 08:32 Lactulose (Lactulose Liq) 30 ml Q12HR PO 08/07/17 21:00 08/22/17 08:33 Labetalol HCl (Trandate Inj) 10 mg Q1HR PRN IV PUSH SBP>170, DBP>90, HR>65 08/08/17 15:15 08/17/17 11:35 Hydralazine HCl (Apresoline Inj) 10 mg Q1HR PRN IV PUSH SBP>170, DBP>90 08/08/17 15:15 08/13/17 01:41 Nitroglycerin (Nitroglycerin 2% Oint) 2 inch Q6HR PRN TOPICAL SBP>170, DBP>90 08/08/17 15:15 Morphine Sulfate (Roxanol Liq) 10 mg Q4H PRN PO pain 5-10 08/12/17 14:15 08/21/17 08:41 Miscellaneous (Pill Splitter) 1 ea UNSCH PRN OTHER SEE LABEL COMMENTS 08/13/17 14:15 Dextrose (D50w (Vial) Inj) 50 ml UNSCH PRN IV PUSH HYPOGLYCEMIA-SEE COMMENTS 08/15/17 16:00 Glucagon (Glucagon Inj) 1 mg UNSCH PRN OTHER HYPOGLYCEMIA-SEE COMMENTS 08/15/17 16:00 Insulin Human Regular (NovoLIN R SUPPLEMENTAL SCALE) 1 Q4HR SQ 08/15/17 16:00 08/21/17 22:01 Diltiazem HCl (Cardizem) 60 mg Q6HR PO 08/16/17 12:00 08/22/17 06:00 Potassium Chloride 100 ml @ 50 mls/hr Q2H PRN IV For Potassium 2.8 - 3.2 mEq/L 08/16/17 09:45 Potassium Chloride 100 ml @ 50 mls/hr Q2H PRN IV For Potassium 2.8 - 3.2 mEq/L 08/16/17 09:45 08/16/17 14:43 Potassium Bicarb/ Potassium Chloride (K-Lyte Cl Eff) 50 meq UNSCH PRN PO For Potassium 3.3 - 3.5 mEq/L 08/16/17 09:45 08/20/17 21:40 Potassium Chloride 100 ml @ 25 mls/hr UNSCH PRN IV For Potassium 3.3 - 3.5 mEq/L 08/16/17 09:45 Potassium Chloride 100 ml @ 50 mls/hr Q2H PRN IV For Potassium 3.3 - 3.5 mEq/L 08/16/17 09:45 Magnesium Sulfate 4 gm/Sodium Chloride 100 ml @ 50 mls/hr UNSCH PRN IV For Magnesium 0.9 - 1.1 mg/dL 08/16/17 09:45 Magnesium Oxide (Mag-Ox) 800 mg UNSCH PRN PO For Magnesium 1.2 - 1.6 mg/dL 08/16/17 09:45 Magnesium Sulfate 2 gm/Sodium Chloride 100 ml @ 50 mls/hr UNSCH PRN IV For Magnesium 1.2 - 1.6 mg/dL 08/16/17 09:45 Potassium Phosphate (K-Phos) 2,000 mg Q4H PRN PO For Phosphorus < 2.5 mg/dL 08/16/17 09:45 Sodium Phosphate 30 mmol/Sodium Chloride 250 ml @ 42 mls/hr UNSCH PRN IV For Phosphorus < 2.5 mg/dL 08/16/17 09:45 Potassium Phosphate (K-Phos) 2,000 mg UNSCH PRN PO/TUBE SEE LABEL COMMENTS 08/16/17 09:45 Potassium Phosphate 30 mmol/ Sodium Chloride 260 ml @ 42 mls/hr UNSCH PRN IV SEE LABEL COMMENTS 08/16/17 09:45 08/17/17 12:24 Daptomycin 500 mg/ Sodium Chloride 100 ml @ 200 mls/hr Q24H IV 08/17/17 11:00 08/21/17 11:29 Metoprolol Tartrate (Lopressor) 50 mg Q12HR PO 08/17/17 21:00 08/22/17 08:32 Hydralazine HCl (Apresoline) 50 mg Q8HR PO 08/19/17 08:30 08/22/17 06:00 Meropenem 1000 mg/ Sodium Chloride 100 ml @ 200 mls/hr Q8H IV 08/19/17 18:00 08/22/17 08:33 Methylprednisolone Sodium Succinate (SoluMEDROL INJ) 40 mg Q12H IV PUSH 08/22/17 10:00 08/22/17 08:34 Objective: Vital Signs Date Time Temp Pulse Resp B/P (MAP) Pulse Ox O2 Delivery O2 Flow Rate FiO2 08/22/17 10:00 71 08/22/17 08:11 98 Nasal Cannula 2.00 08/22/17 08:00 83 08/22/17 08:00 97.9 83 33 129/72 (91) 98 08/22/17 06:00 86 08/22/17 04:45 82 28 98 08/22/17 04:30 81 30 141/74 (96) 98 08/22/17 04:15 80 29 97 08/22/17 04:00 98.0 80 27 137/70 (92) 98 08/22/17 04:00 80 08/22/17 03:45 80 28 98 08/22/17 03:30 78 24 135/75 (95) 97 08/22/17 03:15 74 29 97 08/22/17 03:00 77 32 129/73 (91) 96 08/22/17 02:31 65 25 144/69 (94) 99 08/22/17 02:30 69 27 99 08/22/17 02:00 74 08/22/17 02:00 74 25 123/72 (89) 98 18 01:30 81 30 131/66 (87) 96 08/22/17 01:00 82 30 125/67 (86) 97 08/22/17 00:30 82 33 134/71 (92) 98 08/22/17 00:00 97.9 82 29 99 08/22/17 00:00 82 08/21/17 23:31 77 30 131/72 (91) 99 08/21/17 23:30 74 28 98 08/21/17 23:05 78 39 133/63 (86) 95 08/21/17 23:00 79 21 96 08/21/17 22:45 95 Nasal Cannula 3.00 08/21/17 22:30 75 9 136/68 (90) 100 08/21/17 22:00 90 08/21/17 22:00 90 38 138/69 (92) 97 08/21/17 21:30 87 37 142/67 (92) 98 08/21/17 21:03 89 40 138/65 (89) 98 08/21/17 21:00 89 35 141/64 (89) 100 08/21/17 20:37 92 36 147/70 (95) 98 08/21/17 20:30 88 29 133/73 (93) 99 08/21/17 20:00 87 08/21/17 20:00 97.7 87 10 135/65 (88) 100 18 19:30 91 29 128/78 (95) 99 08/21/17 19:00 91 34 125/71 (89) 97 08/21/17 18:00 85 08/21/17 16:00 80 08/21/17 16:00 97.7 80 13 119/67 (84) 100 08/21/17 14:00 79 08/21/17 12:00 80 08/21/17 12:00 98.8 80 39 136/67 (90) 99 Laboratory Tests Test 08/21/17 05:26 08/22/17 06:58 White Blood Count 10.9 TH/MM3 8.8 TH/MM3 Red Blood Count 2.80 MIL/MM3 2.89 MIL/MM3 Hemoglobin 9.1 GM/DL 9.2 GM/DL Hematocrit 27.4 % 28.1 % Mean Corpuscular Volume 98.0 FL 97.2 FL Mean Corpuscular Hemoglobin 32.6 PG 32.0 PG Mean Corpuscular Hemoglobin Concent 33.3 % 32.9 % Red Cell Distribution Width 17.9 % 18.7 % Platelet Count 582 TH/MM3 553 TH/MM3 Mean Platelet Volume 7.9 FL 7.7 FL Neutrophils (%) (Auto) 89.6 % 85.5 % Lymphocytes (%) (Auto) 2.6 % 4.1 % Monocytes (%) (Auto) 7.6 % 10.2 % Eosinophils (%) (Auto) 0.0 % 0.0 % Basophils (%) (Auto) 0.2 % 0.2 % Neutrophils # (Auto) 9.8 TH/MM3 7.6 TH/MM3 Lymphocytes # (Auto) 0.3 TH/MM3 0.4 TH/MM3 Monocytes # (Auto) 0.8 TH/MM3 0.9 TH/MM3 Eosinophils # (Auto) 0.0 TH/MM3 0.0 TH/MM3 Basophils # (Auto) 0.0 TH/MM3 0.0 TH/MM3 CBC Comment DIFF FINAL DIFF FINAL Differential Comment Laboratory Tests Test 08/21/17 05:26 08/22/17 06:58 Blood Urea Nitrogen 41 MG/DL 44 MG/DL Creatinine 0.83 MG/DL 0.90 MG/DL Random Glucose 115 MG/DL 124 MG/DL Total Protein 8.3 GM/DL Albumin 2.4 GM/DL Calcium Level 8.6 MG/DL 8.7 MG/DL Alkaline Phosphatase 125 U/L Aspartate Amino Transf (AST/SGOT) 47 U/L Alanine Aminotransferase (ALT/SGPT) 60 U/L Total Bilirubin 0.7 MG/DL Sodium Level 143 MEQ/L 137 MEQ/L Potassium Level 4.3 MEQ/L 4.3 MEQ/L Chloride Level 103 MEQ/L 98 MEQ/L Carbon Dioxide Level 31.8 MEQ/L 30.7 MEQ/L Anion Gap 8 MEQ/L 8 MEQ/L Estimat Glomerular Filtration Rate 67 ML/MIN 61 ML/MIN Microbiology Date/Time Source Procedure Growth Status 08/22/17 00:50 Urine Catheterized Urine Urine Culture Pending Received 08/19/17 23:02 Urine Catheterized Urine Urine Culture - Preliminary Yeast Species Resulted Imaging: Lumbar Spine CT 08/21/17 0000 Signed Impressions: Service Date/Time: Monday, August 21, 2017 20:47 - CONCLUSION: 1. Postsurgical features of removal of posterior fixation hardware and placement of anterior fixation hardware at L4-5 and S1 with laminectomy at L4. 2. Surgical drain extends to the mid L4 level in the posterior lumbar soft tissues. There is low density soft tissue stranding and fluid measuring up to 2.7 cm and thickness extending just caudal from the surgical drain without peripherally enhancing focal fluid collection. Librado Hernandez MD Chest X-Ray 08/21/17 0000 Signed Impressions: Service Date/Time: Monday, August 21, 2017 21:23 - CONCLUSION: 1. Compensated cardiomegaly. 2. No acute abnormality or significant interval change. Librado Hernandez MD Chest X-Ray 08/18/17 0000 Signed Impressions: Service Date/Time: August 10:12 - CONCLUSION: 1. Patchy bilateral airspace disease and areas of pleural thickening, unchanged. 2. Stable cardiomegaly. 3. Interval removal of the endotracheal and nasogastric tubes. 4. Stable soft tissue calcification/ossification over the left humerus/shoulder Rogelio Santos MD Chest X-Ray 08/15/17 0600 Signed Impressions: Service Date/Time: Tuesday, August 15, 2017 05:18 - CONCLUSION: 1. Stable patchy basilar airspace disease and pleural thickening. Endotracheal tube and nasogastric tube unchanged. Fareed Masterson MD Chest X-Ray 08/11/17 0600 Signed Impressions: Service Date/Time: August 03:16 - CONCLUSION: Mild interval improvement in bilateral airspace disease with significant residual. Epifanio Sweeney MD Chest X-Ray 08/05/17 0600 Signed Impressions: Service Date/Time: Saturday, August 05, 2017 04:54 - CONCLUSION: Normal placement of nasogastric tube. Grossly stable aeration Sterling Aguilar MD Lumbar Spine CT 08/04/17 0000 Signed Impressions: Service Date/Time: August 13:46 - CONCLUSION: 1. There is low density in the soft tissues at the recent laminectomy site L4-L5 measuring up to 2.4 cm in thickness with out deformity of the posterior thecal sac at the laminectomy site. 2. Stable anterolisthesis at L5-S1 with bony fusion. 3. 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 Maykel Singh MD Abdomen/Pelvis CT 08/04/17 0000 Signed Impressions: Service Date/Time: August 13:46 - CONCLUSION: 1. There is stool diffusely throughout the colon suggesting constipation. 2. The solid organs of the abdomen are grossly intact. 3. No free air free fluid seen within the abdomen. No abscess is identified. 4. Small amount of free fluid within the abdomen. 5. Bilateral pleural effusions and consolidation. 6. Cardiomegaly. 7. 2 mm nonobstructing stone in the lower pole collecting system of the right kidney. 8. Anasarca. Mil Toro MD Abdomen Fluoroscopy 08/04/17 0000 Signed Impressions: Service Date/Time: August 17:00 - CONCLUSION: Uncomplicated nasoenteric suction type catheter (NGT) placement as above. Librado Hernandez MD PHYSICAL EXAMINATION: GENERAL: Awake and alert. Responsive. HEENT: Extraocular movements intact. No icterus. Mucosa appears moist. NECK: No swelling or adenopathy. LUNGS: Clear decreased breath sounds. HEART: Irregular S1 and S2. No audible murmurs, rubs or gallops. ABDOMEN: Slightly distended, soft, normal bowel sounds. BACK: KAY drainage catheter in place. Little clear serous drainage in the bulb. Tuning necrotic pressure ulcers which are dry on both sides EXTREMITIES: No clubbing, cyanosis. trace edema of the upper extremities. SKIN: No rash. NEUROLOGIC: No gross focal finding. PSYCHIATRIC: Pleasant, calm and cooperative. IMPRESSION: 1. Septic shock. Improved. 2. Acute hypercapnic respiratory failure. Extubated. Still continues to feel somewhat short of breath. Receives intermittent BiPAP. 3. Acute renal failure. Improving 4. Shock liver, probably from sepsis. LFTs improving. 5. Lung infiltrate. Including thickening. Improved. 6. Osteomyelitis of the lumbar spine. Patient was placed on IV antibiotics By ID at [facility]. The patient is status post hardware removal from the lumbar spine and noted to have methicillin-resistant Staph aureus on culture. She received a course of IV vancomycin which was completed on 07/29/2017. 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 Has drain in place at the lumbar spine. She was due to have an appointment at [facility] in [place] later this month to assess the lumbar wound and possibly remove the lumbar drainage catheter. 6. Candiduria. Receive Diflucan treatment. Still with Denise in the urine which likely is colonization. 7. Leukocytosis. Abnormal chest x-ray. Recent extubation. Recent broad antibiotics. RECOMMENDATIONS: 1. Continue the Daptomycin every 24 hours. Treatment until September 09, 2017. Patient has appointment with neurosurgery in [facility] for August 23 to address the lumbar spine infection and the drainage catheter. 2. Stop meropenem. 3. Wound care to evaluate sacral pressure ulceration 4. Monitor clinical status. Arrangements for outpatient IV daptomycin can be made from ID standpoint. Dion Wing MD August 22, 2017 11:28
[2017-08-22] MEDS: DAPTOmycin INJ 500 MG in SODIUM CHLORIDE 0.9% INJ 100 ML IV SCH (11:33)
--- NOTE | 2017-08-22 11:38 | HHI.FF ---
Infusion Therapy Location of Infusion Therapy: [facility] Infusion Therapy Order Patient Information Patient Weight 52.8 kg Diagnosis: Coded Allergies: albuterol (Verified Allergy, Unknown, 08/03/17) gabapentin (Verified Allergy, Unknown, 08/03/17) ipratropium (Verified Allergy, Unknown, 08/03/17) iron (Verified Allergy, Unknown, 08/03/17) penicillin G (Unverified Allergy, Unknown, 11/16/16) prochlorperazine (Unverified Allergy, Unknown, 11/16/16) vancomycin (Verified Allergy, Unknown, 08/03/17) *MDRO Multi-Drug Resistant Organism (Verified Adverse Reaction, Unknown, ) MRSA (BACK WOUND)-09/17/2016 Administer Medication Daptomycin 500 mg IV q 24 hours Stop Treatment: Sep 09, 2017 Additional Information Venous access: PICC Line Additional Instructions [x] Peripheral flush and dressing changes per protocol [x] Implanted port and central telephone lines repairer: * Implanted port: 10 ml Normal Saline followed by 5 ml Heparin 100 units/ml Heparin flush after each use and monthly to maintain. [] May leave port accessed during therapy. [] May leave peripheral site accessed for duration of therapy. [x] If patient has SOB or respiratory distress, check oxygen saturation. If less than 90% or clinical signs of respiratory distress, administer oxygen at 2 L/min. via nasal cannula and notify physician. [x] Anaphylaxis/Reaction orders: * Stop infusion. * Keep IV line open with saline flush. * Notify physician. * Monitor vital signs every 15 minutes until symptoms resolve. * Check Oxygen saturation; Oxygen at 2 L/min. via nasal cannula if less than 90% or clinical signs of respiratory distress. * Administer diphenhydramine (Benadryl) 25 mg IV STAT, (unless patient has received as pre-med). May repeat once, if necessary. * Solu-Cortef 250 mg IVP over 30-60 seconds, use 100 mg vials for each dissolution. * Epinephrine (1mg/1 ml) 0.3 mg subcutaneously or IVP now with any signs of respiratory distress. * Check with physician for new additional pre-med orders if patient is re- challenged or re-treated. [x] May remove PICC line when treatment complete, after confirming with Physician. [x] If the patient is admitted to the hospital, the ED, or transferred via [facility] , complete transfer form including medication reconciliation order sheet. Laboratory Tests Weekly Labs: BMP, Serum CK Levels Dion Wing MD August 22, 2017 11:38
--- NOTE | 2017-08-22 13:16 | HHI.CCPN ---
Subjective Remarks/Hospital Course 76-year-old female resident [place] the [place] presents with complaints of respiratory difficulty. Onset was today. She is also complaining with some chest discomfort. She denies productive cough. Her symptoms are moderate to severe with no exacerbating factors. This patient was reportedly just discharged from [facility] with discitis secondary to MRSA. 53: Afebrile. Early this a.m. patient still having respiratory difficulty noted metabolic acidosis with a bicarb level 13, sodium bicarbonate infusion continues. She noticed to have respiratory distress ABGs performed. Impending intubation 7.10. Patient noted to have KAY drain emanating from back with dressing taken down no area redness yellow fluid and KAY drain sent for wound culture analysis. Upon further investigation patient's brother at bedside patient had lumbar hardware removed from [facility] in [place] approximately 6 weeks ago secondary to hardware eroding through the back and could be visualized on site. 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 Gottlieb cultures are pending. Attempts at medical record release forms from [facility] are pending. Patient previously last week at [facility] for acute kidney injury/urinary tract infection, attempting to obtain medical record. Patient was discharged approximately 2-3 days ago per report. This a.m. patient went into A. fib RVR with a heart rate in the 150s patient was given metoprolol 2 doses heart rate 112, patient is known to have chronic atrial fibrillation previously on Cardizem and digoxin 0.125 IV 1 dose Cardizem reinitiated. Discussion with patient regarding intubation and patient' s brother at bedside patient desires aggressive measures be undertaken patient requests intubation if needed and to remain a full code. Noted open areas skin wound areas on the lower extremities well-healed skin graft site left thigh wound care has been consulted. Palliative care also has been consulted to define goals of care. 08/05: Patient noted with elevated INR, Coumadin has been discontinued for 2 days. Vitamin K ordered. No active signs of bleeding. Patient on sedation vacation following commands. Afib rate controlled 70's-80's since addition to p.o. Cardizem. 6: Patient is currently on PSV trial FiO2 35%. Minimal secretions. Tolerating tube feeds. No bowel movement yesterday. Follows commands. 08/08: Temperature currently 98.8. Adequate weaning parameters however no cough leak. We will give dexamethasone 1 day and recheck cuff leak in a.m. Awake and follows commands. Transaminases normalized. Creatinine continues to slowly rise. 08/09: No events overnight. Patient is lethargic, easily arousable, tolerating CPAP at 10/5. T-max of 99.9. Still no cuff leak. Urine output is appropriate , with 3650 mL's over the last 24 hours. No family present at bedside. 08/10: No events over the night. Patient is awake, complaining of back pain, on fentanyl at 150 mics/hr. Tolerating CPAP 15/5. Afebrile over the night, with a T-max of 98.8. Negative fluid balance over the last 24 hours, -500 cc. 08/11: Patient remains intubated and sedated. She did well over the night. T- max of 98.6. She continues to be on fentanyl drip for back pain, asleep, easily arousable, follows commands. 08/12: No events over the night. Patient remains intubated, on fentanyl drip, easily arousable, following commands. Great response to diuretics, more than 3600 mL's urine output. Patient tolerated CPAP well yesterday but after being cleaned she developed tachycardia and tachypnea requiring full support. T-max of 99.3. 08/13: No events over the night. T-max of 98.6. She responded great to diuresis post Lasix, negative more than 3.3 L over the last 24 hours. She remains on fentanyl drip, lethargic, easily arousable. Oxygenation is unchanged. Chest x-ray reviewed, ET tube is in good position, 3 cm above paulo , unchanged bilateral opacities. 08/14: Patient remains intubated, on fentanyl infusion at 250 mcg/hour. T-max of 99.7. Negative almost 1 L over last 24 hours. Being but easily arousable, denies any complaints. On CPAP 12/5 tolerating well. 08/15 Patient is lying in bed in NAD. On BIPAP 01/09 with 50% FIO2. Afebrile. s/p extubation yesterday. 08/16 Patient was placed on BIPAP overnight. Afebrile 08/17 Patient is on 5L oxygen, afebrile. 08/18 No events overnight. Patient used BIPAP for 4 hrs overnight. 08/19 No events overnight. On 5L oxygen. Afebrile 08/20 On 5 L NC, appears tachypneic. Afebrile. Subjective: 08/21 Says she isn't feeling well today but unable to localize anything specific. Afebrile. No leukocytosis. No chest pain. She appears slightly tachypneic but denies shortness of breath. There is serous drainage around her lumbar drain site that is soaking pads. 08/22: Awake and alert. On nasal cannula. Drainage around lumbar drain site noted. Consult neurosurgery Dr. Rivera who recommends transferring patient to [facility] where she had lumbar surgery. Objective Vital Signs Date Time Temp Pulse Resp B/P (MAP) Pulse Ox O2 Delivery O2 Flow Rate FiO2 08/22/17 12:00 79 08/22/17 12:00 98.0 40 140/72 (94) 95 08/22/17 08:11 Nasal Cannula 2.00 08/18/17 23:09 40 Intake and Output 08/22/17 08/22/17 08/23/17 08:00 16:00 00:00 Intake Total 580 ml 100 ml Output Total 1300 ml Balance -720 ml 100 ml Result Diagram: 08/22/17 0658 08/22/17 0658 Other Results Microbiology Date/Time Source Procedure Growth Status 08/19/17 23:02 Urine Catheterized Urine Urine Culture - Final Denise Glabrata Complete Imaging Last Impressions Chest X-Ray 08/18/17 0000 Signed Impressions: Service Date/Time: August 10:12 - CONCLUSION: 1. Patchy bilateral airspace disease and areas of pleural thickening, unchanged. 2. Stable cardiomegaly. 3. Interval removal of the endotracheal and nasogastric tubes. 4. Stable soft tissue calcification/ossification over the left humerus/shoulder Rogelio Santos MD Lumbar Spine CT 08/04/17 0000 Signed Impressions: Service Date/Time: August 13:46 - CONCLUSION: 1. There is low density in the soft tissues at the recent laminectomy site L4-L5 measuring up to 2.4 cm in thickness with out deformity of the posterior thecal sac at the laminectomy site. 2. Stable anterolisthesis at L5-S1 with bony fusion. 3. 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 Maykel Singh MD Abdomen/Pelvis CT 08/04/17 Signed Impressions: Service Date/Time: August 13:46 - CONCLUSION: 1. There is stool diffusely throughout the colon suggesting constipation. 2. The solid organs of the abdomen are grossly intact. 3. No free air free fluid seen within the abdomen. No abscess is identified. 4. Small amount of free fluid within the abdomen. 5. Bilateral pleural effusions and consolidation. 6. Cardiomegaly. 7. 2 mm nonobstructing stone in the lower pole collecting system of the right kidney. 8. Anasarca. Mil Toro MD Abdomen Fluoroscopy 08/04/17 0000 Signed Impressions: Service Date/Time: August 17:00 - CONCLUSION: Uncomplicated nasoenteric suction type catheter (NGT) placement as above. Librado Hernandez MD Procedures 08/04 -placement of NG tube IR Objective Remarks GENERAL: Patient is 76 yo lying in bed, awake. Kyphotic. SKIN: Warm and dry. KAY drain in back, her back pad is soaked with serous fluid. There is no exudative drainage at drain site. Two large sacral decubitus ulcers with eschar. HEAD: Normocephalic. EYES: No scleral icterus. No injection or drainage. NECK: Supple, trachea midline. No JVD or lymphadenopathy. CARDIOVASCULAR: Regular rate and rhythm without murmurs, gallops, or rubs. RESPIRATORY: Tachypneic, no accessory muscle use. Has anterior rales. GASTROINTESTINAL: Abdomen soft, non-tender, nondistended. Bowel sounds present. : Fam in place. MUSCULOSKELETAL: No cyanosis, trace edema. Neuro: More alert today and conversant. Moves all extremities Date of Insertion: August 04, 2017 A/P Problem List: (1) Afib ICD Code: I48.91 - Unspecified atrial fibrillation Status: Acute (2) EMIR (acute kidney injury) ICD Code: N17.9 - Acute kidney failure, unspecified Status: Acute (3) CKD (chronic kidney disease) stage 4, GFR 15-29 ml/min ICD Code: N18.4 - Chronic kidney disease, stage 4 (severe) Status: Acute (4) Renal insufficiency ICD Code: N28.9 - Disorder of kidney and ureter, unspecified Status: Acute (5) Chronic pain ICD Code: G89.29 - Other chronic pain Status: Acute (6) Atrial fibrillation with RVR ICD Code: I48.91 - Unspecified atrial fibrillation Status: Acute (7) Hyperkalemia ICD Code: E87.5 - Hyperkalemia Status: Acute (8) Severe sepsis ICD Code: A41.9 - Sepsis, unspecified organism; R65.20 - Severe sepsis without septic shock (9) Metabolic acidosis ICD Code: E87.2 - Acidosis Status: Resolved (10) Hypoglycemia ICD Code: E16.2 - Hypoglycemia, unspecified Status: Acute (11) Cardiomegaly ICD Code: I51.7 - Cardiomegaly Status: Acute Assessment and Plan Neuro/Psych: Chronic pain syndrome Status post removal of lumbar/sacral L5/S1 hardware 06/19 Chronic opioid use Monitor neuro status, avoid sedatives KAY drain in place. Bulb is not holding suction, replaced the KAY bulb without improvement. Lumbar CT obtained to determine drain position and evaluate for residual fluid or abscess Per Dr. Wing, has appointment with [facility] Neurosurgery 08/23 for followup and drain management. Respiratory: Acute hypercapnic respiratory failure -resolved. Mild pulmonary hypertension COPD/asthma Continue with oxygen keep sats >92% Ipratropium aerosols every 6 hours Albuterol allergy Solumederol 40mg IV Q12. LAsix 20 mg IV x1 Cardiovascular: A. fib RVR-resolved History of essential hypertension Chronic systolic congestive heart failure Chronic atrial fibrillation Monitor HR and BP keep MAP>65mmHg On Cardizem 60 mg Q6, Lopressor 50mg Q12, add Hydralazine 50mg Q8 08/05 Echo- The left ventricular systolic function is moderately reduced with an EF 40-45%. Dyskinetic apical cap wall motion. The right ventricle is moderately dilated. Moderate mitral valve regurgitation. Aortic valve sclerosis is present. There is mild to moderate tricuspid valve regurgitation. There is estimated mild pulmonary hypertension present (range 40-50 mmHg). Home medications include isosorbide dinitrate 30 mg daily, metoprolol succinate 50 mg daily lisinopril 2.5 mg daily. These are currently on hold On Coumadin, dosing per pharmacy as per below. Renal: Acute renal insufficiency incentive chronic kidney disease stage IV Right renal stone/no hydronephrosis Monitor renal function, I/O's, electrolytes replacement per protocol REplace fam 08/21 FEN/GI: On PO diet Famotidine 10 mg twice daily for GI prophylaxis. Docusate sodium/senna 1 tablet twice daily, lactulose 30 cc twice daily for bowel regimen Heme/ID: Anemia of chronic disease Thrombocytopenia Leukocytosis MRSA Discitis Chronic warfarin use Funguria Sacral decubitus ulcers - wound care consulted.. Continue daptomycin. ID is following. CK 66 on 08/16 Coumadin per pharmacy. Has been on hold since 08/17 because INR had increased significantly with modest dose. Now INR 2.3 and pharmacist recommends warfarin 0.5 mg po every other day but will continue to hold for now until drain evaluated by neurosurgery. Medical records release obtained for medical records at [facility]/[place] and [facility] - The patient has a history of recent surgery at [facility] in [place]. She underwent removal of hardware from the lumbosacral spine L1-S1 because of exposed loosened hardware from prior surgery. She reportedly had surgery of the lumbosacral spine 10 years prior. The surgery at [facility] was on 06/27. Intraoperative culture reportedly had MRSA. She was put on antibiotics by infectious disease to complete on 07/29/2017. She was receiving intravenous vancomycin. The patient completed the course of the vancomycin. There is a notation in the medical record that she is ALLERGIC TO VANCOMYCIN. She is currently on daptomycin. She continues with a drainage catheter in the lumbosacral region from prior surgery. She was seen by infectious disease physician at [facility] and reportedly will be in need of IV antibiotics for 6 weeks because of osteomyelitis of the lumbar spine. 08/06 UTI -Denise-fluconazole 200mg/d 08/04- Blood Cultures -NGTD Endocrine: Glucose monitoring per ICU protocol -- SSI Prophylaxis: GI Prophylaxis Famotidine BID DVT Prophylaxis -- SCDs. Lines: PICC line Discussed with Dr. Rivera from neurosurgery was consulted for evaluating leak from around lumbar drain site. He recommends transferring patient to [facility] where she had her hardware removal for further evaluation. Palliative care is following Level 2 follow-up Avi Edwards MD August 22, 2017 13:16
--- NOTE | 2017-08-22 17:03 | PD.WCN.NOT ---
Wound Consult Description: Wound consult ordered by for wound management Communicated with: Willie WINSLOW, Dr. Boyce Recommendation: 1. Reposition patient every 2 hours for comfort and offloading. 2. Gently paint intact eschar covering sacrum with skin prep or povidone iodine BID 3. Reconsult wound care if wound worsens or changes in appearance. Additional Information: Patient was seen today by story writer on 5th floor [facility] for wound management of sacrococcygeal pressure injury.Patient alert and oriented x3 laying in bed upon writers arrival.Patient only complaint is that she is hot.Plant Buyer was able to provide fan for comfort.Patient is a sister of the cloth very strict privacy provided.Patient was able to reposition to left side with max assistance of story writer.Plant Buyer provided bed sheet to cover patient other than assessment area.Plant Buyer was able to visualize entire coccyx/sacral area.Patient has two unstageable pressure injuries Left upper iliac crest measures 4.8cm 5.2cm x intact dry stable leather appearing eschar .Pressure injury #2 measures ~6.5cm x 6.2cm x intact dry stable leather appearing eschar to sacral area extending upward towards lumbar spine. Wound edge separation noted from 7-9 O'clock. minimal erythema noted to periwounds.Periwounds are blanchable to touch no drainage or odor noted.Patient has injuries to bilateral lower extremities in which wound care orders are in place.Skin prep applied to sacral eschar and left iliac crest and left open to air.Patient was off loaded to left side with use of pillows.Patient has contraction of the neck in which she is contracted to left side.Pillow placed under left side of patient neck for comfort.Patient was covered with gown and single sheet for privacy.Patient has no questions or concerns upon writers departure.Plant Buyer will follow up on patient wound status with .Airrepy pressure alternating support surface ordered and delivered [facility] August 22, 2017 17:03
[2017-08-22] MEDS: MORPHINE SULFATE ORAL SOLN 10 MG/0.5 ML SYRINGE PO PRN (20:14)
[2017-08-22] MEDS: CYCLOBENZAPRINE HCL 10 MG TAB PO PRN (21:48)
[2017-08-23] VITALS (13 sets, daily range): BP systolic 121–148; BP diastolic 63–80; PULSE 67–86; RESP 15–39; TEMP 97.6–98.5; O2SAT 93–99
[2017-08-23] MEDS: DILTIAZEM HCL 60 MG TAB PO SCH ×5 (01:02→23:44)
[2017-08-23] MEDS: RESP: IPRATROPIUM 0.5 MG/2.5 ML NEB NEB SCH ×4 (03:33→20:23)
[2017-08-23] MEDS: CHLORHEXIDINE GLUCONATE 2 % 1 PACK (2 CLOTHS) TOP SCH (04:00)
[2017-08-23] MEDS: INSULIN NovoLIN REGULAR SUPPLEMENTAL SCALE SQ SCH ×7 (04:00→23:44)
[2017-08-23] MEDS: SODIUM CHLORIDE 0.9% FLUSH 10 ML FLUSH IV FLUSH SCH ×5 (05:01→21:09)
[2017-08-23] MEDS: hydrALAZINE HCL 50 MG TAB PO SCH ×3 (05:01→21:08)
[2017-08-23] MEDS: ARTIFICIAL TEARS OPTH SOLN 15 ML BTL EACH EYE SCH ×3 (05:01→21:09)
[2017-08-23 07:24] LABS: AUTOMATED NEUTROPHIL # 5.1 TH/MM3 (1.8-7.7); BASOPHIL % 0.1 % (0.0-2.0); HEMATOCRIT 31.2 % (35.0-46.0); HEMOGLOBIN 10.4 GM/DL (11.6-15.3); LYMPH % 2.1 % (9.0-44.0); LYMPHOCYTE # 0.1 TH/MM3 (1.0-4.8); MEAN CELL VOLUME 97.9 FL (80.0-100.0); MEAN CORPUSCULAR HEMOGLOBIN 32.6 PG (27.0-34.0); MEAN CORPUSCULAR HGB CONC 33.3 % (32.0-36.0); MEAN PLATELET VOLUME 7.7 FL (7.0-11.0); MONO % 2.7 % (0.0-8.0); MONOCYTE # 0.1 TH/MM3 (0-0.9); NEUT % 95.1 % (16.0-70.0); PLATELET COUNT 500 TH/MM3 (150-450); RED BLOOD COUNT 3.19 MIL/MM3 (4.00-5.30); RED CELL DISTRIBUTION WIDTH 18.6 % (11.6-17.2); WHITE BLOOD COUNT 5.4 TH/MM3 (4.0-11.0)
[2017-08-23 07:25] LABS: INTERNATIONAL NORMALIZED RATIO 1.4 RATIO; PROTHROMBIN TIME - PATIENT 13.9 SEC (9.8-11.6)
[2017-08-23 07:49] LABS: ALBUMIN 2.6 GM/DL (3.4-5.0); AST (GOT) 48 U/L (15-37); BICARBONATE 31.1 MEQ/L (21.0-32.0); BLOOD UREA NITROGEN 43 MG/DL (7-18); CHLORIDE 96 MEQ/L (98-107); CREATININE 0.92 MG/DL (0.50-1.00); GLOMERULAR FILTRATION RATE 60 ML/MIN (>89); GLUCOSE,RANDOM 140 MG/DL (74-106); SODIUM (NA) 136 MEQ/L (136-145)
[2017-08-23 07:50] LABS: ALT (GPT) 74 U/L (10-53)
[2017-08-23 07:53] LABS: ALKALINE PHOSPHATASE 160 U/L (45-117); TOTAL PROTEIN 8.7 GM/DL (6.4-8.2)
[2017-08-23] MEDS: CHLORHEXIDINE 0.12% (ORAL KIT) 15 ML CUP MT SCH ×2 (08:39→20:00)
[2017-08-23] MEDS: MUPIROCIN 2% OINT 1 APPLIC/GM SYR EACH NARE SCH ×2 (08:39→20:00)
[2017-08-23] MEDS: ZINC SULFATE 220 MG CAP PO SCH (08:40)
[2017-08-23] MEDS: LACTULOSE SYRUP 20 GM/30 ML CUP PO SCH ×2 (08:40→20:01)
[2017-08-23] MEDS: DOCUSATE SODIUM 50 MG/SENNA 8.6 MG TAB PO SCH ×2 (08:40→20:00)
[2017-08-23] MEDS: METOPROLOL TARTRATE 50 MG TAB PO SCH ×2 (08:40→20:00)
[2017-08-23] MEDS: ASCORBIC ACID 500 MG TAB PO SCH (08:40)
[2017-08-23] MEDS: FAMOTIDINE 20 MG TAB PO SCH ×2 (08:40→20:00)
[2017-08-23] MEDS: DAPTOmycin INJ 500 MG in SODIUM CHLORIDE 0.9% INJ 100 ML IV SCH (10:01)
[2017-08-23] MEDS: methylPREDNISolone SOD SUCC 40 MG/1 ML VIAL IV PUSH SCH ×2 (10:01→21:08)
[2017-08-23] MEDS: MORPHINE SULFATE ORAL SOLN 10 MG/0.5 ML SYRINGE PO PRN ×2 (12:56→20:00)
[2017-08-23] MEDS: CYCLOBENZAPRINE HCL 10 MG TAB PO PRN ×2 (14:55→23:44)
--- NOTE | 2017-08-23 17:21 | HHI.HCPN ---
Reason for visit a. To assist with evaluation and management of symptoms including: dyspnea, pain b. To assist medical decision maker(s) with: better understanding of current medical conditions; weighing benefits/burdens of medical treatment options; making medical treatment decisions. Subjective/Interval History Patient seen today to follow-up on dyspnea, pain. She is tolerating 2L nasal canula O2 well and is saturating adequately. She has severe neck contractures, and head is bent forward and left. This may be contributing to her dyspnea. She reiterates that she would accept intubation again if needed. She complains of pain in her mid back, at the incision site at 7/10. She received roxanol 10 mg 2 hours prior to my visit, which did relieve her pain at the time, but does not last until the next available dose. She is prescribed roxanol 10 mg Q4H PRN pain 5-10. Wound care has evaluated and noted unstageable coccyx/sacral area ~7.5cm x 4.5cm x intact dry stable leather appearing eschar to sacral area extending upward towards lumbar spine. minimal erythema noted to periwound. Periwound was blanchable to touch no drainage or odor noted.Patient has injuries to bilateral lower extremities in which wound care orders are in place.Skin prep applied to sacral eschar left open to air.Patient was off loaded to left side with use of pillows. Patient has contraction of the neck in which she is contracted to left side. . Family/friend interactions No family at bedside. . Advance Directives Living Will: Never completed Health Care Surrogate: Never completed Durable Power of Instrument Fitter: Never completed Advance Directive Specifics Health Care Surrogate(s): 08/17/16 designated brother Jose Nicolas as HCS. . Objective Vital Signs Date Time Temp Pulse Resp B/P (MAP) Pulse Ox O2 Delivery O2 Flow Rate FiO2 08/23/17 14:00 67 08/23/17 13:56 24 08/23/17 12:00 86 08/23/17 12:00 97.7 86 35 136/70 (92) 98 08/23/17 10:00 84 08/23/17 08:00 97.8 76 28 121/69 (86) 93 08/23/17 08:00 76 08/23/17 06:00 81 08/23/17 06:00 81 26 129/63 (85) 98 08/23/17 04:00 79 08/23/17 04:00 98.5 79 27 148/80 (102) 99 08/23/17 02:00 77 08/23/17 00:00 76 08/23/17 00:00 98.2 76 15 141/67 (91) 98 08/22/17 22:00 94 08/22/17 21:21 97 Nasal Cannula 2.00 08/22/17 20:00 98.4 95 35 136/72 (93) 97 08/22/17 20:00 95 08/22/17 18:00 94 Intake & Output 08/23/17 08/23/17 07:00 19:00 Intake Total 500 ml Output Total 650 ml Balance -150 ml Intake Oral 500 ml Output Urine Total 650 ml Stool Total 0 ml Drainage Total 0 ml Physical Exam CONSTITUTIONAL/GENERAL: This is an adequately nourished patient, alert, pleasant TUBES/LINES/DRAINS: Midline iv left upper. Nasal cannula. Simpson catheter. CARDIOVASCULAR: Irregular rate and rhythm. Atrial fib observed. No JVD. Peripheral pulses symmetric-pedal pulses very faint. 1+ Edema to upper extremities. RESPIRATORY/CHEST: Symmetric, un labored respirations on nasal cannula. Clear to auscultation. Decreased air movement. GASTROINTESTINAL: Abdomen soft, nontender , nondistended. No hepato-splenomegaly , or palpable masses. No guarding. Bowel sounds hypoactive. GENITOURINARY: Without palpable bladder distension. Catheter in place clear yellow urine. MUSCULOSKELETAL: Extremities without clubbing, cyanosis. Edema improved to upper extremities. Healed graft scars to upper legs. Dressings to lower legs. Lower legs are very thin, with significant muscle atrophy. Arthritic appearing deformity to feet. Kyphotic posture, leaning forward in bed. NEUROLOGICAL: Alert , oriented, appropriate. Appears to have some reasonable insight to hospitalization. Speech is quiet, weak. Cooperative, moving all 4 extremities very weakly. PSYCHIATRIC: No obvious anxiety/depression . Diagnostic Tests Laboratory Laboratory Tests Test 08/21/17 05:26 08/22/17 00:50 08/22/17 06:58 08/23/17 05:53 White Blood Count 10.9 TH/MM3 (4.0-11.0) 8.8 TH/MM3 (4.0-11.0) 5.4 TH/MM3 (4.0-11.0) Red Blood Count 2.80 MIL/MM3 (4.00-5.30) 2.89 MIL/MM3 (4.00-5.30) 3.19 MIL/MM3 (4.00-5.30) Hemoglobin 9.1 GM/DL (11.6-15.3) 9.2 GM/DL (11.6-15.3) 10.4 GM/DL (11.6-15.3) Hematocrit 27.4 % (35.0-46.0) 28.1 % (35.0-46.0) 31.2 % (35.0-46.0) Mean Corpuscular Volume 98.0 FL (80.0-100.0) 97.2 FL (80.0-100.0) 97.9 FL (80.0-100.0) Mean Corpuscular Hemoglobin 32.6 PG (27.0-34.0) 32.0 PG (27.0-34.0) 32.6 PG (27.0-34.0) Mean Corpuscular Hemoglobin Concent 33.3 % (32.0-36.0) 32.9 % (32.0-36.0) 33.3 % (32.0-36.0) Red Cell Distribution Width 17.9 % (11.6-17.2) 18.7 % (11.6-17.2) 18.6 % (11.6-17.2) Platelet Count 582 TH/MM3 (150-450) 553 TH/MM3 (150-450) 500 TH/MM3 (150-450) Mean Platelet Volume 7.9 FL (7.0-11.0) 7.7 FL (7.0-11.0) 7.7 FL (7.0-11.0) Neutrophils (%) (Auto) 89.6 % (16.0-70.0) 85.5 % (16.0-70.0) 95.1 % (16.0-70.0) Lymphocytes (%) (Auto) 2.6 % (9.0-44.0) 4.1 % (9.0-44.0) 2.1 % (9.0-44.0) Monocytes (%) (Auto) 7.6 % (0.0-8.0) 10.2 % (0.0-8.0) 2.7 % (0.0-8.0) Eosinophils (%) (Auto) 0.0 % (0.0-4.0) 0.0 % (0.0-4.0) 0.0 % (0.0-4.0) Basophils (%) (Auto) 0.2 % (0.0-2.0) 0.2 % (0.0-2.0) 0.1 % (0.0-2.0) Neutrophils # (Auto) 9.8 TH/MM3 (1.8-7.7) 7.6 TH/MM3 (1.8-7.7) 5.1 TH/MM3 (1.8-7.7) Lymphocytes # (Auto) 0.3 TH/MM3 (1.0-4.8) 0.4 TH/MM3 (1.0-4.8) 0.1 TH/MM3 (1.0-4.8) Monocytes # (Auto) 0.8 TH/MM3 (0-0.9) 0.9 TH/MM3 (0-0.9) 0.1 TH/MM3 (0-0.9) Eosinophils # (Auto) 0.0 TH/MM3 (0-0.4) 0.0 TH/MM3 (0-0.4) 0.0 TH/MM3 (0-0.4) Basophils # (Auto) 0.0 TH/MM3 (0-0.2) 0.0 TH/MM3 (0-0.2) 0.0 TH/MM3 (0-0.2) CBC Comment DIFF FINAL DIFF FINAL AUTO DIFF Differential Comment AUTO DIFF CONFIRMED Prothrombin Time 23.2 SEC (9.8-11.6) 16.1 SEC (9.8-11.6) 13.9 SEC (9.8-11.6) Prothromb Time International Ratio 2.3 RATIO 1.6 RATIO 1.4 RATIO Blood Urea Nitrogen 41 MG/DL (7-18) 44 MG/DL (7-18) 43 MG/DL (7-18) Creatinine 0.83 MG/DL (0.50-1.00) 0.90 MG/DL (0.50-1.00) 0.92 MG/DL (0.50-1.00) Random Glucose 115 MG/DL (74-106) 124 MG/DL (74-106) 140 MG/DL (74-106) Total Protein 8.3 GM/DL (6.4-8.2) 8.7 GM/DL (6.4-8.2) Albumin 2.4 GM/DL (3.4-5.0) 2.6 GM/DL (3.4-5.0) Calcium Level 8.6 MG/DL (8.5-10.1) 8.7 MG/DL (8.5-10.1) 9.0 MG/DL (8.5-10.1) Alkaline Phosphatase 125 U/L (45-117) 160 U/L (45-117) Aspartate Amino Transf (AST/SGOT) 47 U/L (15-37) 48 U/L (15-37) Alanine Aminotransferase (ALT/SGPT) 60 U/L (10-53) 74 U/L (10-53) Total Bilirubin 0.7 MG/DL (0.2-1.0) 1.0 MG/DL (0.2-1.0) Sodium Level 143 MEQ/L (136-145) 137 MEQ/L (136-145) 136 MEQ/L (136-145) Potassium Level 4.3 MEQ/L (3.5-5.1) 4.3 MEQ/L (3.5-5.1) 5.0 MEQ/L (3.5-5.1) Chloride Level 103 MEQ/L (98-107) 98 MEQ/L (98-107) 96 MEQ/L (98-107) Carbon Dioxide Level 31.8 MEQ/L (21.0-32.0) 30.7 MEQ/L (21.0-32.0) 31.1 MEQ/L (21.0-32.0) Anion Gap 8 MEQ/L (5-15) 8 MEQ/L (5-15) 9 MEQ/L (5-15) Estimat Glomerular Filtration Rate 67 ML/MIN (>89) 61 ML/MIN (>89) 60 ML/MIN (>89) Urine Color LIGHT-YELLOW (YELLW/STRAW) Urine Turbidity CLEAR (CLEAR) Urine pH 7.5 (5.0-8.5) Urine Specific [place] 1.015 (1.002-1.035) Urine Protein TRACE mg/dL (NEG-TRACE) Urine Glucose (UA) NEG mg/dL (NEG) Urine Ketones NEG mg/dL (NEG) Urine Occult Blood SMALL (NEG) Urine Nitrite NEG (NEG) Urine Bilirubin NEG (NEG) Urine Urobilinogen LESS THAN 2.0 MG/DL (LESS Urine Leukocyte Esterase LARGE (NEG) Urine RBC 31 /hpf (0-3) Urine WBC 37 /hpf (0-5) Urine Squamous Epithelial Cells 1 /hpf (0-5) Urine Transitional Epithelial Cells <1 /hpf (NONE) Urine Renal Epithelial Cells 1 /hpf (NONE) Urine Calcium Oxalate Crystals RARE /hpf (NONE) Urine Mucus FEW /lpf (OCC) Urine Yeast (Budding) OCC (NONE) Microscopic Urinalysis Comment CATH-CULTURE IND Result Diagram: 08/23/17 0553 08/23/17 0553 Microbiology Microbiology Date/Time Source Procedure Growth Status 08/22/17 00:50 Urine Catheterized Urine Urine Culture - Preliminary IMMATURE GROWTH - REINCUBATE Resulted Imaging Last Impressions Lumbar Spine CT 08/21/17 0000 Signed Impressions: Service Date/Time: Monday, August 21, 2017 20:47 - CONCLUSION: 1. Postsurgical features of removal of posterior fixation hardware and placement of anterior fixation hardware at L4-5 and S1 with laminectomy at L4. 2. Surgical drain extends to the mid L4 level in the posterior lumbar soft tissues. There is low density soft tissue stranding and fluid measuring up to 2.7 cm and thickness extending just caudal from the surgical drain without peripherally enhancing focal fluid collection. Librado Hernandez MD Chest X-Ray 08/21/17 0000 Signed Impressions: Service Date/Time: Monday, August 21, 2017 21:23 - CONCLUSION: 1. Compensated cardiomegaly. 2. No acute abnormality or significant interval change. Librado Hernandez MD Abdomen/Pelvis CT 08/04/17 0000 Signed Impressions: Service Date/Time: August 13:46 - CONCLUSION: 1. There is stool diffusely throughout the colon suggesting constipation. 2. The solid organs of the abdomen are grossly intact. 3. No free air free fluid seen within the abdomen. No abscess is identified. 4. Small amount of free fluid within the abdomen. 5. Bilateral pleural effusions and consolidation. 6. Cardiomegaly. 7. 2 mm nonobstructing stone in the lower pole collecting system of the right kidney. 8. Anasarca. Mil Toro MD Abdomen Fluoroscopy 08/04/17 0000 Signed Impressions: Service Date/Time: August 17:00 - CONCLUSION: Uncomplicated nasoenteric suction type catheter (NGT) placement as above. Librado Hernandez MD Procedures 08/03/17 central line placed 08/04/17 intubated Assessment and Plan Disease Oriented Problem List: (1) Acute respiratory failure (2) CAD (coronary artery disease) (3) GERD (gastroesophageal reflux disease) (4) Anemia (5) Chest pain (6) Elevated troponin (7) Urinary tract infection (8) Sepsis (9) MRSA (methicillin resistant Staphylococcus aureus) septicemia (10) Atrial fibrillation with RVR (11) Hyperkalemia (12) Cardiomegaly (13) Hypoglycemia (14) Renal insufficiency (15) Metabolic acidosis (16) CKD (chronic kidney disease) stage 4, GFR 15-29 ml/min Symptom Scale: (1) Dyspnea 0-10 Scale: Unable to quantify (2) Pain 0-10 Scale: Unable to quantify Pertinent Non-Medical Issues 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 Not no children. Part of a very large family she has multiple siblings. She is closest with her brother Jose, who is local. Jose describes her as jessee and extremely kind and caring. 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 She may at some point regain ability to participate. Brother Jose indicates she has always listed him as primary contact, and has always indicated that she trusts him to make decisions when she cannot however he is not certain that she has completed any documentation of healthcare surrogate or advanced directives. Per [place] statutes legal decision making would fall to the majority of all of patient's siblings. Brother indicates that he has always been the one assisting her with medical needs, decisions. Will discuss with him further tomorrow and attempt to contact additional siblings to determine if they wish to participate in decision-making. 08/05/17 4 of 5 siblings defer to brother Jose. Ethical issues impacting care: None identified Important Contacts Brother Mark Nicolas (Bill) [phone] HEALTHCARE SURROGATE Sister Karrie defers to brother Jose Sister Malu defers to brother Jose Brothvíctor Katz defers to brother Jose brother Gm defers to Jose Sister Itzel-- 08/08 defers to Jose . Prognosis This patient was admitted for respiratory distress, chest discomfort. She has had multiple recent hospitalizations and rehabilitation courses. Brother details that each time one condition stabilizes or improves she experiences another complication. She has required ongoing treatment for MRSA infection at a surgical site. Given her advanced age and multiple condition she does remain at risk for continued complications and decline and possibly . Code Status: Full Code Plan * Legal decision maker: . Patient medically extubated, able to complete healthcare surrogate designation naming her brother Mark Nicolas (Bill ) as healthcare surrogate. She does appear to have insight and able to participate in decision making, supported by [facility]. * Goals: Patient has been stable, made very slow and slight improvements during ICU course. Patient expresses aggressive goals, including reintubation. She would also consider tracheostomy and PEG tube if indicated and would help her continue to live. Her brother and healthcare surrogate is supportive of her wishes. * CODE STATUS:Full code * SYMPTOMS: --dyspnea-admitted for respiratory distress. Worsening respiratory status, metabolic acidosis, intubated 08/04. Medically extubated, tolerating nasal cannula. CXR stable. Not interested in comfort measures. If goals were comfort oriented prn benzodiazepines would be beneficial. --Pain-Patient reports pain 7/10 at time of exam in her back at the wound site. Other potential sources would include: Bedbound status, recent invasive procedure intubation, central line, multiple recent hospitalizations and surgical procedures. She is noted to be on chronic morphine long-acting and short-acting prior to admission and has underwent multiple procedures and hospitalizations recently so likely has some underlying chronic pain. She has prn oral morphine 10 mg every 4 hours as needed. She has been using 2-3 doses a day. She indicates today this is effective, pain is controlled. At some point may need to resume home scheduled long acting pain regimen. She is chronically on morphine extended release 15 mg every 12 hours, as well as morphine 15 mg prn for breakthrough pain; appears she is not opiate salomón may need additional pain regimen as clinical course goes forward. Current dosing does not appear to be maintaining her pain control, as she is having 7/10 pain 2 hours after dose given. As her respiratory status has improved, Recommend that she be resumed on home pain regimen of morphine extended release 15 mg q12h with morphine 15 mg PRN breakthrough. * Palliative care will continue to follow during hospital course as condition evolves, to assist patient/decision-maker with understanding of medical conditions, weighing benefits/burdens of treatment options, for clarification of goals of treatment. Additionally will assist with any symptoms of palliative concern . Attestation To help prompt me to consider important information that might be impacting today's encounter and assessment, information from prior notes written by myself or my colleagues may have been "brought forward" into today's note. My signature on this note, however, is an attestation that I personally performed the exam, history, and/or decision-making noted today, and, unless otherwise indicated, the interactions with patient, family, and staff as well as the review of records all occurred today. I also attest that the listed assessment and stated plan reflect my best clinical judgment today based on the combination of historical information, prior notes, and today's exam/ interactions. When time spent is documented, it refers only to time spent today by the signer, or if indicated, combined time spent today by collaborating physician/nurse practitioner. . Nitza Shay August 23, 2017 17:21
[2017-08-23] MEDS ORDERED: BACITRACIN TOP OINT 15 GM TUBE TOPICAL ONE (18:30)
--- NOTE | 2017-08-23 23:49 | HHI.CCPN ---
Subjective Remarks/Hospital Course 76-year-old female resident of the half[place]way presents with complaints of respiratory difficulty. Onset was today. She is also complaining with some chest discomfort. She denies productive cough. Her symptoms are moderate to severe with no exacerbating factors. This patient was reportedly just discharged from [facility] with discitis secondary to MRSA. 53: Afebrile. Early this a.m. patient still having respiratory difficulty noted metabolic acidosis with a bicarb level 13, sodium bicarbonate infusion continues. She noticed to have respiratory distress ABGs performed. Impending intubation 7.10. Patient noted to have KAY drain emanating from back with dressing taken down no area redness yellow fluid and KAY drain sent for wound culture analysis. Upon further investigation patient's brother at bedside patient had lumbar hardware removed from [facility] in [place] approximately 6 weeks ago secondary to hardware eroding through the back and could be visualized on site. 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 Gottlieb cultures are pending. Attempts at medical record release forms from [facility] are pending. Patient previously last week at [facility] for acute kidney injury/urinary tract infection, attempting to obtain medical record. Patient was discharged approximately 2-3 days ago per report. This a.m. patient went into A. fib RVR with a heart rate in the 150s patient was given metoprolol 2 doses heart rate 112, patient is known to have chronic atrial fibrillation previously on Cardizem and digoxin 0.125 IV 1 dose Cardizem reinitiated. Discussion with patient regarding intubation and patient' s brother at bedside patient desires aggressive measures be undertaken patient requests intubation if needed and to remain a full code. Noted open areas skin wound areas on the lower extremities well-healed skin graft site left thigh wound care has been consulted. Palliative care also has been consulted to define goals of care. 08/05: Patient noted with elevated INR, Coumadin has been discontinued for 2 days. Vitamin K ordered. No active signs of bleeding. Patient on sedation vacation following commands. Afib rate controlled 70's-80's since addition to p.o. Cardizem. 6: Patient is currently on PSV trial FiO2 35%. Minimal secretions. Tolerating tube feeds. No bowel movement yesterday. Follows commands. 08/08: Temperature currently 98.8. Adequate weaning parameters however no cough leak. We will give dexamethasone 1 day and recheck cuff leak in a.m. Awake and follows commands. Transaminases normalized. Creatinine continues to slowly rise. 08/09: No events overnight. Patient is lethargic, easily arousable, tolerating CPAP at 10/5. T-max of 99.9. Still no cuff leak. Urine output is appropriate , with 3650 mL's over the last 24 hours. No family present at bedside. 08/10: No events over the night. Patient is awake, complaining of back pain, on fentanyl at 150 mics/hr. Tolerating CPAP 15/5. Afebrile over the night, with a T-max of 98.8. Negative fluid balance over the last 24 hours, -500 cc. 08/11: Patient remains intubated and sedated. She did well over the night. T- max of 98.6. She continues to be on fentanyl drip for back pain, asleep, easily arousable, follows commands. 08/12: No events over the night. Patient remains intubated, on fentanyl drip, easily arousable, following commands. Great response to diuretics, more than 3600 mL's urine output. Patient tolerated CPAP well yesterday but after being cleaned she developed tachycardia and tachypnea requiring full support. T-max of 99.3. 08/13: No events over the night. T-max of 98.6. She responded great to diuresis post Lasix, negative more than 3.3 L over the last 24 hours. She remains on fentanyl drip, lethargic, easily arousable. Oxygenation is unchanged. Chest x-ray reviewed, ET tube is in good position, 3 cm above paulo , unchanged bilateral opacities. 08/14: Patient remains intubated, on fentanyl infusion at 250 mcg/hour. T-max of 99.7. Negative almost 1 L over last 24 hours. Being but easily arousable, denies any complaints. On CPAP 12/5 tolerating well. 08/15 Patient is lying in bed in NAD. On BIPAP 01/09 with 50% FIO2. Afebrile. s/p extubation yesterday. 08/16 Patient was placed on BIPAP overnight. Afebrile 08/17 Patient is on 5L oxygen, afebrile. 08/18 No events overnight. Patient used BIPAP for 4 hrs overnight. 08/19 No events overnight. On 5L oxygen. Afebrile 08/20 On 5 L NC, appears tachypneic. Afebrile. 08/21 Says she isn't feeling well today but unable to localize anything specific. Afebrile. No leukocytosis. No chest pain. She appears slightly tachypneic but denies shortness of breath. There is serous drainage around her lumbar drain site that is soaking pads. 08/22: Awake and alert. On nasal cannula. Drainage around lumbar drain site noted. Consult neurosurgery Dr. Rivera who recommends transferring patient to [facility] where she had lumbar surgery. Subjective: 08/23 Drain has no output and not holding suction, leakage of serous fluid around drain site. I had replaced the bulb without improvement. Discussed with [facility] Neurosurgery, Nancy, who is PA for Dr. Jhon Wilson who communicated with Dr. Wilson as well and then called me back. Update provided regarding clinical condition, reason for admission, imaging, labs, presence of large sacral decub ulcers. Recommended patient followup with him when she has completed antibiotic course (daptomycin to be completed 09/09 per ). No need to transfer at this time. Suspects drain can be removed but defers management of drain to Dr. Shirley, plastic surgery. Discussed with Dr. Dela Cruz who is resident with Dr. Shirley. He recommends applying bacitracin ointment around the drain site to try to regain seal. If drain still not holding suction after this, it is okay to remove. Nurse did assist me with rolling the patient and I tried this but was unable to get a good seal with the dependent edema and thin unsubstantial tissue surrounding the drain. The drain was removed. Objective Vital Signs Date Time Temp Pulse Resp B/P (MAP) Pulse Ox O2 Delivery O2 Flow Rate FiO2 08/23/17 21:00 27 08/23/17 20:23 97 Nasal Cannula 2.00 08/23/17 20:00 85 08/23/17 20:00 97.6 137/64 (88) Intake and Output 08/23/17 08/23/17 08/24/17 08:00 16:00 00:00 Intake Total 500 ml 100 ml 960 ml Output Total 650 ml 476 ml Balance -150 ml 100 ml 484 ml Result Diagram: 08/23/17 0553 08/23/17 0553 Imaging Last Impressions Chest X-Ray 08/18/17 0000 Signed Impressions: Service Date/Time: August 10:12 - CONCLUSION: 1. Patchy bilateral airspace disease and areas of pleural thickening, unchanged. 2. Stable cardiomegaly. 3. Interval removal of the endotracheal and nasogastric tubes. 4. Stable soft tissue calcification/ossification over the left humerus/shoulder Rogelio Santos MD Lumbar Spine CT 08/04/17 0000 Signed Impressions: Service Date/Time: August 13:46 - CONCLUSION: 1. There is low density in the soft tissues at the recent laminectomy site L4-L5 measuring up to 2.4 cm in thickness with out deformity of the posterior thecal sac at the laminectomy site. 2. Stable anterolisthesis at L5-S1 with bony fusion. 3. 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 Maykel Singh MD Abdomen/Pelvis CT 08/04/17 0000 Signed Impressions: Service Date/Time: August 13:46 - CONCLUSION: 1. There is stool diffusely throughout the colon suggesting constipation. 2. The solid organs of the abdomen are grossly intact. 3. No free air free fluid seen within the abdomen. No abscess is identified. 4. Small amount of free fluid within the abdomen. 5. Bilateral pleural effusions and consolidation. 6. Cardiomegaly. 7. 2 mm nonobstructing stone in the lower pole collecting system of the right kidney. 8. Anasarca. Mil Toro MD Abdomen Fluoroscopy 08/04/17 0000 Signed Impressions: Service Date/Time: August 17:00 - CONCLUSION: Uncomplicated nasoenteric suction type catheter (NGT) placement as above. Librado Hernandez MD Procedures 08/04 -placement of NG tube IR Objective Remarks GENERAL: Patient is 76 yo lying in bed, awake. Kyphotic. SKIN: Warm and dry. KAY drain in back, no drainage, bulb not holding suction, some serous output around drain. The surgical incision is well healed. There is a 7cm x 7cm sacral decubitus ulcer with eschar on the right side of sacrum and another 7cm x 6 cm eschar on the left sacrum. HEAD: Normocephalic. EYES: No scleral icterus. No injection or drainage. NECK: Supple, trachea midline. No JVD or lymphadenopathy. CARDIOVASCULAR: Regular rate and rhythm without murmurs, gallops, or rubs. RESPIRATORY: Tachypneic, no accessory muscle use. Has anterior rales. GASTROINTESTINAL: Abdomen soft, non-tender, nondistended. Bowel sounds present. : Fam in place. MUSCULOSKELETAL: No cyanosis, trace edema. Neuro: More alert today and conversant. Moves all extremities Date of Insertion: August 04, 2017 A/P Problem List: (1) Afib ICD Code: I48.91 - Unspecified atrial fibrillation Status: Acute (2) EMIR (acute kidney injury) ICD Code: N17.9 - Acute kidney failure, unspecified Status: Acute (3) CKD (chronic kidney disease) stage 4, GFR 15-29 ml/min ICD Code: N18.4 - Chronic kidney disease, stage 4 (severe) Status: Acute (4) Renal insufficiency ICD Code: N28.9 - Disorder of kidney and ureter, unspecified Status: Acute (5) Chronic pain ICD Code: G89.29 - Other chronic pain Status: Acute (6) Atrial fibrillation with RVR ICD Code: I48.91 - Unspecified atrial fibrillation Status: Acute (7) Hyperkalemia ICD Code: E87.5 - Hyperkalemia Status: Acute (8) Severe sepsis ICD Code: A41.9 - Sepsis, unspecified organism; R65.20 - Severe sepsis without septic shock (9) Metabolic acidosis ICD Code: E87.2 - Acidosis Status: Resolved (10) Hypoglycemia ICD Code: E16.2 - Hypoglycemia, unspecified Status: Acute (11) Cardiomegaly ICD Code: I51.7 - Cardiomegaly Status: Acute Assessment and Plan Neuro/Psych: Chronic pain syndrome Status post removal of lumbar/sacral L5/S1 hardware 06/19 Chronic opioid use Monitor neuro status, avoid sedatives KAY drain removed 08/23 after discussion with [facility] neurosurgery, Dr. Wilson and plastics Dr. Dela Cruz (resident for Dr. Shirley). Lumbar CT showed surgical drain in posterior lumbar soft tissues, stranding and fluid ~2.7 cm just caudal to surgical drain without peripherally enhancing fluid collection. Patient originally had appointment with [facility] Neurosurgery 08/24 for followup and drain management. Now Dr. Wilson requests followup in Neurosurgery clinic sometime after antibiotics completed (daptomycin stop date planned for 09/09). Respiratory: Acute hypercapnic respiratory failure -resolved. Mild pulmonary hypertension COPD/asthma Continue with oxygen keep sats >92% Ipratropium aerosols every 6 hours Albuterol allergy Decrease Solumederol 40mg IV daily. LAsix 20 mg IV q12 hours x2 doses. Cardiovascular: A. fib RVR-resolved History of essential hypertension Chronic systolic congestive heart failure Chronic atrial fibrillation Monitor HR and BP keep MAP>65mmHg On Cardizem 60 mg Q6, Lopressor 50mg Q12, Hydralazine 50mg Q8 08/05 Echo- The left ventricular systolic function is moderately reduced with an EF 40-45%. Dyskinetic apical cap wall motion. The right ventricle is moderately dilated. Moderate mitral valve regurgitation. Aortic valve sclerosis is present. There is mild to moderate tricuspid valve regurgitation. There is estimated mild pulmonary hypertension present (range 40-50 mmHg). Home medications include isosorbide dinitrate 30 mg daily, metoprolol succinate 50 mg daily lisinopril 2.5 mg daily. These are currently on hold On Coumadin, dosing per pharmacy as per below. Renal: Acute renal insufficiency incentive chronic kidney disease stage IV Right renal stone/no hydronephrosis Monitor renal function, I/O's, electrolytes replacement per protocol REplace fam 08/21 FEN/GI: On PO diet Famotidine 10 mg twice daily for GI prophylaxis. Docusate sodium/senna 1 tablet twice daily, lactulose 30 cc twice daily for bowel regimen Heme/ID: Anemia of chronic disease Thrombocytopenia Leukocytosis MRSA Discitis Chronic warfarin use Funguria Sacral decubitus ulcers - wound care consulted.. Continue daptomycin. ID is following. CK 66 on 08/16. Daptomycin stop date 09/09. Followup with Shane SHEPARD some time after that. Drain was removed 08/23. Coumadin per pharmacy. Has been on hold since 08/17 because INR had increased significantly with modest dose. Now INR 1.4 and had deferred resuming coumadin until issues with drain resolved. Now will resume and pharmacist recommends warfarin 0.5 mg po every other day but will continue to hold for now until drain evaluated by neurosurgery. Medical records release obtained for medical records at [facility]/[place] and [facility] - The patient has a history of recent surgery at [facility] in [place]. She underwent removal of hardware from the lumbosacral spine L1-S1 because of exposed loosened hardware from prior surgery. She reportedly had surgery of the lumbosacral spine 10 years prior. The surgery at [facility] was on 06/27. Intraoperative culture reportedly had MRSA. She was put on antibiotics by infectious disease to complete on 07/29/2017. She was receiving intravenous vancomycin. The patient completed the course of the vancomycin. There is a notation in the medical record that she is ALLERGIC TO VANCOMYCIN. She is currently on daptomycin. She was seen by infectious disease physician at [facility] and reportedly will be in need of IV antibiotics for 6 weeks because of osteomyelitis of the lumbar spine. 08/06 UTI -Denise-fluconazole 200mg/d 08/04- Blood Cultures -NGTD Endocrine: Glucose monitoring per ICU protocol -- SSI Prophylaxis: GI Prophylaxis Famotidine BID DVT Prophylaxis - warfarin for a fib will also provide DVT prophylaxis. -- SCDs. Lines: PICC line Palliative care is following Level 3 follow-up Tess Hines MD August 23, 2017 23:49
[2017-08-23] MEDS: FUROSEMIDE 20 MG/2 ML VIAL IV PUSH SCH (23:51)
[2017-08-24] VITALS (17 sets, daily range): BP systolic 127–151; BP diastolic 64–79; PULSE 71–107; RESP 17–35; TEMP 97.9–98.2; O2SAT 96–99
[2017-08-24] MEDS: CHLORHEXIDINE GLUCONATE 2 % 1 PACK (2 CLOTHS) TOP SCH (04:00)
[2017-08-24] MEDS: INSULIN NovoLIN REGULAR SUPPLEMENTAL SCALE SQ SCH ×5 (04:00→20:00)
[2017-08-24] MEDS: RESP: IPRATROPIUM 0.5 MG/2.5 ML NEB NEB SCH ×3 (04:00→20:13)
[2017-08-24] MEDS: ARTIFICIAL TEARS OPTH SOLN 15 ML BTL EACH EYE SCH ×3 (05:26→22:00)
[2017-08-24] MEDS: SODIUM CHLORIDE 0.9% FLUSH 10 ML FLUSH IV FLUSH SCH ×5 (05:26→22:00)
[2017-08-24] MEDS: DILTIAZEM HCL 60 MG TAB PO SCH ×3 (05:26→19:04)
[2017-08-24] MEDS: hydrALAZINE HCL 50 MG TAB PO SCH ×3 (05:26→22:00)
[2017-08-24 06:47] LABS: INTERNATIONAL NORMALIZED RATIO 1.3 RATIO; PROTHROMBIN TIME - PATIENT 13.1 SEC (9.8-11.6)
[2017-08-24] MEDS: MUPIROCIN 2% OINT 1 APPLIC/GM SYR EACH NARE SCH ×2 (08:49→21:00)
[2017-08-24] MEDS: METOPROLOL TARTRATE 50 MG TAB PO SCH ×2 (08:50→21:00)
[2017-08-24] MEDS: FAMOTIDINE 20 MG TAB PO SCH ×2 (08:50→21:00)
[2017-08-24] MEDS: ASCORBIC ACID 500 MG TAB PO SCH (08:50)
[2017-08-24] MEDS: DOCUSATE SODIUM 50 MG/SENNA 8.6 MG TAB PO SCH ×2 (08:50→21:00)
[2017-08-24] MEDS: ZINC SULFATE 220 MG CAP PO SCH (08:50)
[2017-08-24] MEDS: LACTULOSE SYRUP 20 GM/30 ML CUP PO SCH ×2 (09:00→21:00)
--- NOTE | 2017-08-24 09:46 | PD.WOU.CON ---
Patient Intake Chief Complaint Pressure Injuries Consult Requested by Primary Care Physician Unknown History of Present Illness Patient seen at bedside alert and oriented with her brother. 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 Before her brother left he prayed with her and the wound care team and her assigned nurse. Coded Allergies: albuterol (Verified Allergy, Unknown, 08/03/17) gabapentin (Verified Allergy, Unknown, 08/03/17) ipratropium (Verified Allergy, Unknown, 08/03/17) iron (Verified Allergy, Unknown, 08/03/17) penicillin G (Unverified Allergy, Unknown, 11/16/16) prochlorperazine (Unverified Allergy, Unknown, 11/16/16) vancomycin (Verified Allergy, Unknown, 08/03/17) *MDRO Multi-Drug Resistant Organism (Verified Adverse Reaction, Unknown, ) MRSA (BACK WOUND)-09/17/2016 Vital Signs Date Time Temp Pulse Resp B/P (MAP) Pulse Ox O2 Delivery O2 Flow Rate FiO2 08/24/17 08:22 99 Nasal Cannula 2.00 08/24/17 06:00 83 08/24/17 04:00 98.2 82 22 135/76 (95) 98 08/24/17 04:00 82 08/24/17 02:00 84 08/24/17 00:00 98.0 86 28 135/65 (88) 97 08/24/17 00:00 86 08/23/17 22:00 84 08/23/17 21:00 27 08/23/17 20:23 97 Nasal Cannula 2.00 08/23/17 20:00 85 08/23/17 20:00 97.6 85 39 137/64 (88) 96 08/23/17 18:00 86 08/23/17 16:00 86 08/23/17 16:00 98.0 86 34 138/71 (93) 98 08/23/17 14:00 67 08/23/17 12:00 86 08/23/17 12:00 97.7 86 35 136/70 (92) 98 08/23/17 10:00 84 Wound Assessment Wound Information - Wound One 08/24/17: Wound Location: Left upper buttock Wound Type: Pressure Ulcer Pressure Staging: Necrotic (Unstageable) Wound Length: 4.8cm Wound Width: 5.2cm Wound Depth: unable to ascertain as this is a stable eschar Wound Two 08/24/17 Wound Location: right sacrolumbar area Wound Type: Pressure Ulcer Pressure Staging: Necrotic (unstageable) Wound Length: 6.6cm Wound Width: 6.2cm Wound Depth: eschar Lab and Radiology Results Radiology Last Impressions Lumbar Spine CT 08/21/17 0000 Signed Impressions: Service Date/Time: Monday, August 21, 2017 20:47 - CONCLUSION: 1. Postsurgical features of removal of posterior fixation hardware and placement of anterior fixation hardware at L4-5 and S1 with laminectomy at L4. 2. Surgical drain extends to the mid L4 level in the posterior lumbar soft tissues. There is low density soft tissue stranding and fluid measuring up to 2.7 cm and thickness extending just caudal from the surgical drain without peripherally enhancing focal fluid collection. Librado Hernandez MD Chest X-Ray 08/21/17 0000 Signed Impressions: Service Date/Time: Monday, August 21, 2017 21:23 - CONCLUSION: 1. Compensated cardiomegaly. 2. No acute abnormality or significant interval change. Librado Hernandez MD Abdomen/Pelvis CT 08/04/17 0000 Signed Impressions: Service Date/Time: August 13:46 - CONCLUSION: 1. There is stool diffusely throughout the colon suggesting constipation. 2. The solid organs of the abdomen are grossly intact. 3. No free air free fluid seen within the abdomen. No abscess is identified. 4. Small amount of free fluid within the abdomen. 5. Bilateral pleural effusions and consolidation. 6. Cardiomegaly. 7. 2 mm nonobstructing stone in the lower pole collecting system of the right kidney. 8. Anasarca. Mil Toro MD Abdomen Fluoroscopy 08/04/17 0000 Signed Impressions: Service Date/Time: August 17:00 - CONCLUSION: Uncomplicated nasoenteric suction type catheter (NGT) placement as above. Librado Hernandez MD Assessment/Plan Problem List: (1) Pressure ulcer, unstageable, with eschar (2) Ulcer of right lower extremity (3) Ulcer of left lower extremity (4) Pressure ulcer of buttock, unstageable Ladi Moore MD August 24, 2017 09:46
[2017-08-24] MEDS: DAPTOmycin INJ 500 MG in SODIUM CHLORIDE 0.9% INJ 100 ML IV SCH (10:40)
[2017-08-24] MEDS: FUROSEMIDE 20 MG/2 ML VIAL IV PUSH SCH (10:40)
[2017-08-24] MEDS: methylPREDNISolone SOD SUCC 40 MG/1 ML VIAL IV PUSH SCH (10:41)
[2017-08-24] MEDS: MORPHINE SULFATE ORAL SOLN 10 MG/0.5 ML SYRINGE PO PRN (10:50)
--- NOTE | 2017-08-24 12:39 | HHI.IDPN ---
Note Infectious Disease Note Patient is awake and interactive. Comfortable. Watching television. Notes pain in the back which is unchanged. Afebrile. Patient was extubated 08/14. 76-year-old white female who presented to the Emergency Department from [place] [facility] with respiratory distress. She was noted to be complaining also of chest discomfort. The patient was intubated and is currently on a ventilator. In the emergency department, the patient had heart rate of 144, temperature 100.9 and respiratory rate of 53. Lactic acid level was 9.4. She was recently diagnosed with acute renal failure at [facility] and was transferred to a [place] [facility] facility upon discharge there on 08/02/2017 . Evaluated at [facility] for altered mental status and also acute kidney disease. The patient has a history of recent surgery at [facility] in [place]. She underwent removal of hardware from the lumbosacral spine L4-S1 because of exposed loosened hardware from prior surgery. She reportedly had surgery of the lumbosacral spine 10 years prior. The surgery at [facility] was on 06/27. Intraoperative culture reportedly had MRSA. She was put on antibiotics by infectious disease to complete on 07/29/2017. She was receiving intravenous vancomycin. She was seen by infectious disease physician at [facility] where she was noted to have acute renal failure. 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 PAST MEDICAL HISTORY: 1. L4-S1 fusion. Recent hardware removal. 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 The patient noted to have loosened hardware 2. Atrial fibrillation. 3. COPD, 4. Plasmacytoma, 5. Anemia, 6. Osteoarthritis, 7. Appendectomy, 8. Hysterectomy, 9. Tonsillectomy, 10. Cholecystectomy, 11. Gastroesophageal reflux disease surgery. ALLERGIES: VANCOMYCIN, ALBUTEROL, GABAPENTIN, IPRATROPIUM, IRON, PENICILLIN G, PROCHLORPERAZINE Antibiotics: Daptomycin. Diflucan. Current Medications Medications (Trade) Dose Ordered Sig/Jayne Route PRN Reason Start Time Stop Time Status Last Admin Dose Admin Metoprolol Tartrate (Lopressor Inj) 5 mg Q5M PRN IV PUSH HR > 100 08/03/17 16:45 08/15/17 03:21 Ascorbic Acid (Vitamin C) 500 mg DAILY PO 08/04/17 09:00 08/17/17 08:04 Cyclobenzaprine HCl (Flexeril) 10 mg Q8HR PRN PO Muscle Cramps 08/03/17 19:45 08/15/17 16:00 Fluticasone Propionate (Flonase Harvey Spr) 1 spray Q12HR EACH NARE 08/03/17 21:00 Future Hold 08/07/17 09:08 Morphine Sulfate (Msir) 15 mg Q4H PRN PO Moderate Pain 08/03/17 19:45 Future Hold Sodium Chloride (NS Flush) 10 ml Q8HR IV FLUSH 08/03/17 22:00 08/17/17 06:51 Zinc Sulfate (Zinc Sulfate) 220 mg DAILY PO 08/04/17 09:00 08/17/17 08:04 Sodium Chloride (NS Flush) 2 ml UNSCH PRN IV FLUSH FLUSH AFTER USING IV ACCESS 08/03/17 20:00 08/13/17 01:41 Sodium Chloride (NS Flush) 2 ml BID IV FLUSH 08/03/17 21:00 08/17/17 08:03 Morphine Sulfate (Morphine Inj) 2 mg Q2H PRN IV PUSH PAIN SCALE 6 TO 10 08/03/17 20:00 Future Hold 08/04/17 05:14 Ondansetron HCl (Zofran Inj) 4 mg Q6H PRN IV PUSH NAUSEA OR VOMITING 08/03/17 20:00 Miscellaneous Information ([facility] Information) 1 Q361D XX 08/03/17 20:00 08/03/17 22:46 Chlorhexidine Gluconate (Chlorhexidine 2% Cloth) Taper DAILY@04 TOP 08/04/17 04:00 07/31/18 03:59 08/08/17 05:11 Chlorhexidine Gluconate (Chlorhexidine 2% Cloth) 3 pack UNSCH PRN TOP HYGIENIC CARE 08/03/17 20:00 Senna/Docusate Sodium (Dina-Colace) 1 tab BID PO 08/03/17 21:00 08/16/17 09:17 Magnesium Hydroxide (Milk Of Magnesia Liq) 30 ml Q12H PRN PO Mild constipation 08/03/17 20:00 Sennosides (Senokot) 17.2 mg Q12H PRN PO Moderate constipation 08/03/17 20:00 Bisacodyl (Dulcolax Supp) 10 mg DAILY PRN RECTAL SEVERE CONSITIPATION 08/03/17 20:00 Lactulose (Lactulose Liq) 30 ml DAILY PRN PO SEVERE CONSITIPATION 08/03/17 20:00 Pharmacy Profile Note 0 ml @ 0 mls/hr UNSCH OTHER 08/04/17 03:45 Chlorhexidine Gluconate (Peridex 0.12% Liq) 15 ml BID@08,20 MT 08/04/17 20:00 08/17/17 08:00 Ipratropium [place] (Atrovent Neb) 0.5 mg Q6HR NEB NEB 08/04/17 16:00 08/14/17 16:08 Famotidine (Pepcid) 10 mg BID PO 08/05/17 21:00 08/17/17 08:03 Artificial Tears (Tears Naturale Opth Soln) 1 drop Q8HR EACH EYE 08/07/17 14:00 08/17/17 06:51 Acetaminophen (Tylenol 650 Mg/ 20 ml Liq) 650 mg Q6H PRN PO fever 08/07/17 14:00 Mupirocin (Bactroban Nasal 2% Oint) Taper BID EACH NARE 08/07/17 21:00 08/03/18 20:59 08/17/17 08:02 Lactulose (Lactulose Liq) 30 ml Q12HR PO 08/07/17 21:00 08/16/17 09:17 Labetalol HCl (Trandate Inj) 10 mg Q1HR PRN IV PUSH SBP>170, DBP>90, HR>65 08/08/17 15:15 08/17/17 11:35 Hydralazine HCl (Apresoline Inj) 10 mg Q1HR PRN IV PUSH SBP>170, DBP>90 08/08/17 15:15 08/13/17 01:41 Nitroglycerin (Nitroglycerin 2% Oint) 2 inch Q6HR PRN TOPICAL SBP>170, DBP>90 08/08/17 15:15 Morphine Sulfate (Roxanol Liq) 10 mg Q4H PRN PO pain 5-10 08/12/17 14:15 08/17/17 10:35 Miscellaneous (Pill Splitter) 1 ea UNSCH PRN OTHER SEE LABEL COMMENTS 08/13/17 14:15 Dextrose (D50w (Vial) Inj) 50 ml UNSCH PRN IV PUSH HYPOGLYCEMIA-SEE COMMENTS 08/15/17 16:00 Glucagon (Glucagon Inj) 1 mg UNSCH PRN OTHER HYPOGLYCEMIA-SEE COMMENTS 08/15/17 16:00 Insulin Human Regular (NovoLIN R SUPPLEMENTAL SCALE) 1 Q4HR SQ 08/15/17 16:00 Diltiazem HCl (Cardizem) 60 mg Q6HR PO 08/16/17 12:00 08/17/17 11:34 Potassium Chloride 100 ml @ 50 mls/hr Q2H PRN IV For Potassium 2.8 - 3.2 mEq/L 08/16/17 09:45 Potassium Chloride 100 ml @ 50 mls/hr Q2H PRN IV For Potassium 2.8 - 3.2 mEq/L 08/16/17 09:45 08/16/17 14:43 Potassium Bicarb/ Potassium Chloride (K-Lyte Cl Eff) 50 meq UNSCH PRN PO For Potassium 3.3 - 3.5 mEq/L 08/16/17 09:45 Potassium Chloride 100 ml @ 25 mls/hr UNSCH PRN IV For Potassium 3.3 - 3.5 mEq/L 08/16/17 09:45 Potassium Chloride 100 ml @ 50 mls/hr Q2H PRN IV For Potassium 3.3 - 3.5 mEq/L 08/16/17 09:45 Magnesium Sulfate 4 gm/Sodium Chloride 100 ml @ 50 mls/hr UNSCH PRN IV For Magnesium 0.9 - 1.1 mg/dL 08/16/17 09:45 Magnesium Oxide (Mag-Ox) 800 mg UNSCH PRN PO For Magnesium 1.2 - 1.6 mg/dL 08/16/17 09:45 Magnesium Sulfate 2 gm/Sodium Chloride 100 ml @ 50 mls/hr UNSCH PRN IV For Magnesium 1.2 - 1.6 mg/dL 08/16/17 09:45 Potassium Phosphate (K-Phos) 2,000 mg Q4H PRN PO For Phosphorus < 2.5 mg/dL 08/16/17 09:45 Sodium Phosphate 30 mmol/Sodium Chloride 250 ml @ 42 mls/hr UNSCH PRN IV For Phosphorus < 2.5 mg/dL 08/16/17 09:45 Potassium Phosphate (K-Phos) 2,000 mg UNSCH PRN PO/TUBE SEE LABEL COMMENTS 08/16/17 09:45 Potassium Phosphate 30 mmol/ Sodium Chloride 260 ml @ 42 mls/hr UNSCH PRN IV SEE LABEL COMMENTS 08/16/17 09:45 Daptomycin 500 mg/ Sodium Chloride 100 ml @ 200 mls/hr Q24H IV 08/17/17 11:00 08/17/17 10:34 Metoprolol Tartrate (Lopressor) 50 mg Q12HR PO 08/17/17 21:00 Objective: Vital Signs Date Time Temp Pulse Resp B/P (MAP) Pulse Ox O2 Delivery O2 Flow Rate FiO2 08/17/17 11:35 33 08/17/17 10:00 81 08/17/17 08:00 97.9 82 33 166/77 (106) 100 08/17/17 08:00 82 08/17/17 07:55 98 Nasal Cannula 5.00 08/17/17 06:00 85 08/17/17 05:02 100 40 08/17/17 04:00 83 08/17/17 04:00 98.0 83 30 158/78 (104) 100 08/17/17 02:00 79 08/17/17 01:30 98 40 08/17/17 00:00 97.8 81 32 154/82 (106) 96 08/17/17 00:00 81 08/16/17 22:00 88 08/16/17 20:00 97.4 90 37 166/74 (104) 90 08/16/17 20:00 90 08/16/17 18:00 88 08/16/17 16:00 98.0 85 31 158/85 (109) 100 08/16/17 16:00 84 08/16/17 15:00 86 30 178/81 (113) 100 08/16/17 14:00 88 08/16/17 14:00 87 29 167/78 (107) 99 08/16/17 13:21 98 40 08/16/17 13:00 103 36 181/85 (117) 96 Laboratory Tests Test 08/16/17 04:46 08/17/17 09:50 White Blood Count 11.0 TH/MM3 11.6 TH/MM3 Red Blood Count 2.84 MIL/MM3 2.72 MIL/MM3 Hemoglobin 9.2 GM/DL 8.7 GM/DL Hematocrit 27.2 % 26.2 % Mean Corpuscular Volume 95.7 FL 96.4 FL Mean Corpuscular Hemoglobin 32.2 PG 31.8 PG Mean Corpuscular Hemoglobin Concent 33.7 % 33.0 % Red Cell Distribution Width 17.1 % 17.4 % Platelet Count 414 TH/MM3 481 TH/MM3 Mean Platelet Volume 8.0 FL 8.1 FL Neutrophils (%) (Auto) 91.9 % 88.3 % Lymphocytes (%) (Auto) 2.7 % 2.7 % Monocytes (%) (Auto) 3.7 % 6.3 % Eosinophils (%) (Auto) 1.4 % 2.3 % Basophils (%) (Auto) 0.3 % 0.4 % Neutrophils # (Auto) 10.1 TH/MM3 10.2 TH/MM3 Lymphocytes # (Auto) 0.3 TH/MM3 0.3 TH/MM3 Monocytes # (Auto) 0.4 TH/MM3 0.7 TH/MM3 Eosinophils # (Auto) 0.2 TH/MM3 0.3 TH/MM3 Basophils # (Auto) 0.0 TH/MM3 0.0 TH/MM3 CBC Comment DIFF FINAL DIFF FINAL Differential Comment Laboratory Tests Test 08/16/17 04:46 08/16/17 22:38 08/17/17 09:50 Blood Urea Nitrogen 40 MG/DL 30 MG/DL Creatinine 0.95 MG/DL 0.80 MG/DL Random Glucose 81 MG/DL 127 MG/DL Total Protein 8.0 GM/DL Albumin 2.5 GM/DL Calcium Level 8.5 MG/DL 8.4 MG/DL Phosphorus Level 3.2 MG/DL 2.3 MG/DL Magnesium Level 1.5 MG/DL 1.6 MG/DL Alkaline Phosphatase 112 U/L Aspartate Amino Transf (AST/SGOT) 41 U/L Alanine Aminotransferase (ALT/SGPT) 80 U/L Total Bilirubin 1.2 MG/DL Sodium Level 142 MEQ/L 141 MEQ/L Potassium Level 3.0 MEQ/L 3.7 MEQ/L 3.3 MEQ/L Chloride Level 104 MEQ/L 104 MEQ/L Carbon Dioxide Level 25.7 MEQ/L 30.2 MEQ/L Anion Gap 12 MEQ/L 7 MEQ/L Estimat Glomerular Filtration Rate 57 ML/MIN 70 ML/MIN Total Creatine Kinase 66 U/L Imaging: Chest X-Ray 08/15/17 0600 Signed Impressions: Service Date/Time: Tuesday, August 15, 2017 05:18 - CONCLUSION: 1. Stable patchy basilar airspace disease and pleural thickening. Endotracheal tube and nasogastric tube unchanged. Fareed Masterson MD Chest X-Ray 08/11/17 0600 Signed Impressions: Service Date/Time: August 03:16 - CONCLUSION: Mild interval improvement in bilateral airspace disease with significant residual. Epifanio Sweeney MD Chest X-Ray 08/09/17 0000 Signed Impressions: Service Date/Time: Wednesday, August 09, 2017 11:34 - CONCLUSION: 1. Bilateral airspace disease with possibly some improving aeration in the lung bases. 2. Stable cardiomegaly. Stable position of life support tubes. 3. Stable calcifications overlying the soft tissues of the shoulders symmetrically and bilaterally. Findings are nonspecific and can represent entities such as dystrophic soft tissue calcifications, idiopathic tumoral calcinosis myositis ossificans as well as scleroderma and dermatomyositis. Findings are overtly benign, however Rogelio Santos MD Chest X-Ray 08/05/17 0600 Signed Impressions: Service Date/Time: Saturday, August 05, 2017 04:54 - CONCLUSION: Normal placement of nasogastric tube. Grossly stable aeration Sterling Aguilar MD Lumbar Spine CT 08/04/17 0000 Signed Impressions: Service Date/Time: August 13:46 - CONCLUSION: 1. There is low density in the soft tissues at the recent laminectomy site L4-L5 measuring up to 2.4 cm in thickness with out deformity of the posterior thecal sac at the laminectomy site. 2. Stable anterolisthesis at L5-S1 with bony fusion. 3. 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 Maykel Singh MD Abdomen/Pelvis CT 08/04/17 0000 Signed Impressions: Service Date/Time: August 13:46 - CONCLUSION: 1. There is stool diffusely throughout the colon suggesting constipation. 2. The solid organs of the abdomen are grossly intact. 3. No free air free fluid seen within the abdomen. No abscess is identified. 4. Small amount of free fluid within the abdomen. 5. Bilateral pleural effusions and consolidation. 6. Cardiomegaly. 7. 2 mm nonobstructing stone in the lower pole collecting system of the right kidney. 8. Anasarca. Mil Toro MD Abdomen Fluoroscopy 08/04/17 0000 Signed Impressions: Service Date/Time: August 17:00 - CONCLUSION: Uncomplicated nasoenteric suction type catheter (NGT) placement as above. Librado Hernandez MD PHYSICAL EXAMINATION: GENERAL: Awake and alert. HEENT: Extraocular movements intact. No icterus. Mucosa appears moist. NECK: No swelling or adenopathy. LUNGS: Slight rhonchi at the left base. Right lung is clear. HEART: Irregular S1 and S2. No audible murmurs, rubs or gallops. ABDOMEN: Slightly distended, soft, normal bowel sounds. BACK: KAY drainage catheter in place. Little clear serous drainage in the bulb. EXTREMITIES: No clubbing, cyanosis. 2+ edema of the upper extremities. SKIN: No rash. NEUROLOGIC: No gross focal finding. PSYCHIATRIC: Pleasant, calm and cooperative. IMPRESSION: 1. Septic shock. Improved. 2. Acute hypercapnic respiratory failure. Extubated. Still continues to feel somewhat short of breath. Receives intermittent BiPAP. 3. Acute renal failure. Improving 4. Shock liver, probably from sepsis. LFTs improving. 5. Lung infiltrate. Including thickening. 6. Osteomyelitis of the lumbar spine. Patient was placed on IV antibiotics By ID at [facility] ([place], [place]). The patient is status post hardware removal from the lumbar spine and noted to have methicillin-resistant Staph aureus on culture. She received a course of IV vancomycin which was completed on 07/29/2017. 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 Has drain in place at the lumbar spine. She was due to have an appointment at [facility] in [place] later this month to assess the lumbar wound and possibly remove the lumbar drainage catheter. 6. Candiduria. RECOMMENDATIONS: 1. Continue the Daptomycin every 24 hours. Treatment until September 09, 2017. Patient has appointment with neurosurgery in [facility] for August 23 to address the lumbar spine infection and the drainage catheter. 2. Monitor pulmonary status. 3. Monitor the clinical status. Patient is awake and alert. Communicating. Feels okay. The therapy has just started working with her. She was put into a upright position with support in bed and respiratory to increase a little but she did not develop any significant distress. No fever. White blood cell count is down to normal. Chest x-ray is improved. Patient was extubated 08/14. 76-year-old white female who presented to the Emergency Department from [place] [facility] with respiratory distress. She was noted to be complaining also of chest discomfort. The patient was intubated and is currently on a ventilator. In the emergency department, the patient had heart rate of 144, temperature 100.9 and respiratory rate of 53. Lactic acid level was 9.4. She was recently diagnosed with acute renal failure at [facility] and was transferred to a [place] [facility] facility upon discharge there on 08/02/2017 . Evaluated at [facility] for altered mental status and also acute kidney disease. The patient has a history of recent surgery at [facility] in [place]. She underwent removal of hardware from the lumbosacral spine L4-S1 via posterior instrumentation because of exposed loosened hardware from prior surgery. Also underwent bilateral paraspinous muscle flaps and wound closure. Required double layer patch graft repair for small durotomy which occurred during surgery. She reportedly had surgery of the lumbosacral spine 10 years prior. The surgery at [facility] was on 06/27. Intraoperative culture reportedly had MRSA. She was put on antibiotics by infectious disease to complete on 07/29/2017. She was receiving intravenous vancomycin. She was seen by infectious disease physician at [facility] where she was noted to have acute renal failure. 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 PAST MEDICAL HISTORY: 1. L4-S1 fusion. Recent hardware removal. 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 The patient noted to have loosened hardware 2. Atrial fibrillation. 3. COPD, 4. Plasmacytoma, 5. Anemia, 6. Osteoarthritis, 7. Appendectomy, 8. Hysterectomy, 9. Tonsillectomy, 10. Cholecystectomy, 11. Gastroesophageal reflux disease surgery. ALLERGIES: VANCOMYCIN, ALBUTEROL, GABAPENTIN, IPRATROPIUM, IRON, PENICILLIN G, PROCHLORPERAZINE Antibiotics: Daptomycin. Meropenem. Meropenem. Current Medications Medications (Trade) Dose Ordered Sig/Jayne Route PRN Reason Start Time Stop Time Status Last Admin Dose Admin Metoprolol Tartrate (Lopressor Inj) 5 mg Q5M PRN IV PUSH HR > 100 08/03/17 16:45 08/15/17 03:21 Ascorbic Acid (Vitamin C) 500 mg DAILY PO 08/04/17 09:00 08/22/17 08:32 Cyclobenzaprine HCl (Flexeril) 10 mg Q8HR PRN PO Muscle Cramps 08/03/17 19:45 08/15/17 16:00 Fluticasone Propionate (Flonase Harvey Spr) 1 spray Q12HR EACH NARE 08/03/17 21:00 Future Hold 08/07/17 09:08 Morphine Sulfate (Msir) 15 mg Q4H PRN PO Moderate Pain 08/03/17 19:45 Future Hold Sodium Chloride (NS Flush) 10 ml Q8HR IV FLUSH 08/03/17 22:00 08/22/17 06:00 Zinc Sulfate (Zinc Sulfate) 220 mg DAILY PO 08/04/17 09:00 08/22/17 08:32 Sodium Chloride (NS Flush) 2 ml UNSCH PRN IV FLUSH FLUSH AFTER USING IV ACCESS 08/03/17 20:00 08/20/17 00:21 Sodium Chloride (NS Flush) 2 ml BID IV FLUSH 08/03/17 21:00 08/22/17 08:33 Morphine Sulfate (Morphine Inj) 2 mg Q2H PRN IV PUSH PAIN SCALE 6 TO 10 08/03/17 20:00 Future Hold 08/04/17 05:14 Ondansetron HCl (Zofran Inj) 4 mg Q6H PRN IV PUSH NAUSEA OR VOMITING 08/03/17 20:00 Miscellaneous Information ([facility] Nursing Information) 1 Q361D XX 08/03/17 20:00 08/03/17 22:46 Chlorhexidine Gluconate (Chlorhexidine 2% Cloth) Taper DAILY@04 TOP 08/04/17 04:00 07/31/18 03:59 08/20/17 04:00 Chlorhexidine Gluconate (Chlorhexidine 2% Cloth) 3 pack UNSCH PRN TOP HYGIENIC CARE 08/03/17 20:00 Senna/Docusate Sodium (Dina-Colace) 1 tab BID PO 08/03/17 21:00 08/22/17 08:32 Magnesium Hydroxide (Milk Of Magnesia Liq) 30 ml Q12H PRN PO Mild constipation 08/03/17 20:00 Sennosides (Senokot) 17.2 mg Q12H PRN PO Moderate constipation 08/03/17 20:00 Bisacodyl (Dulcolax Supp) 10 mg DAILY PRN RECTAL SEVERE CONSITIPATION 08/03/17 20:00 Lactulose (Lactulose Liq) 30 ml DAILY PRN PO SEVERE CONSITIPATION 08/03/17 20:00 Pharmacy Profile Note 0 ml @ 0 mls/hr UNSCH OTHER 08/04/17 03:45 Chlorhexidine Gluconate (Peridex 0.12% Liq) 15 ml BID@08,20 MT 08/04/17 20:00 08/22/17 08:33 Ipratropium [place] (Atrovent Neb) 0.5 mg Q6HR NEB NEB 08/04/17 16:00 08/14/17 16:08 Famotidine (Pepcid) 10 mg BID PO 08/05/17 21:00 08/22/17 08:32 Artificial Tears (Tears Naturale Opth Soln) 1 drop Q8HR EACH EYE 08/07/17 14:00 08/22/17 06:00 Acetaminophen (Tylenol 650 Mg/ 20 ml Liq) 650 mg Q6H PRN PO fever 08/07/17 14:00 Mupirocin (Bactroban Nasal 2% Oint) Taper BID EACH NARE 08/07/17 21:00 08/03/18 20:59 08/22/17 08:32 Lactulose (Lactulose Liq) 30 ml Q12HR PO 08/07/17 21:00 08/22/17 08:33 Labetalol HCl (Trandate Inj) 10 mg Q1HR PRN IV PUSH SBP>170, DBP>90, HR>65 08/08/17 15:15 08/17/17 11:35 Hydralazine HCl (Apresoline Inj) 10 mg Q1HR PRN IV PUSH SBP>170, DBP>90 08/08/17 15:15 08/13/17 01:41 Nitroglycerin (Nitroglycerin 2% Oint) 2 inch Q6HR PRN TOPICAL SBP>170, DBP>90 08/08/17 15:15 Morphine Sulfate (Roxanol Liq) 10 mg Q4H PRN PO pain 5-10 08/12/17 14:15 08/21/17 08:41 Miscellaneous (Pill Splitter) 1 ea UNSCH PRN OTHER SEE LABEL COMMENTS 08/13/17 14:15 Dextrose (D50w (Vial) Inj) 50 ml UNSCH PRN IV PUSH HYPOGLYCEMIA-SEE COMMENTS 08/15/17 16:00 Glucagon (Glucagon Inj) 1 mg UNSCH PRN OTHER HYPOGLYCEMIA-SEE COMMENTS 08/15/17 16:00 Insulin Human Regular (NovoLIN R SUPPLEMENTAL SCALE) 1 Q4HR SQ 08/15/17 16:00 08/21/17 22:01 Diltiazem HCl (Cardizem) 60 mg Q6HR PO 08/16/17 12:00 08/22/17 06:00 Potassium Chloride 100 ml @ 50 mls/hr Q2H PRN IV For Potassium 2.8 - 3.2 mEq/L 08/16/17 09:45 Potassium Chloride 100 ml @ 50 mls/hr Q2H PRN IV For Potassium 2.8 - 3.2 mEq/L 08/16/17 09:45 08/16/17 14:43 Potassium Bicarb/ Potassium Chloride (K-Lyte Cl Eff) 50 meq UNSCH PRN PO For Potassium 3.3 - 3.5 mEq/L 08/16/17 09:45 08/20/17 21:40 Potassium Chloride 100 ml @ 25 mls/hr UNSCH PRN IV For Potassium 3.3 - 3.5 mEq/L 08/16/17 09:45 Potassium Chloride 100 ml @ 50 mls/hr Q2H PRN IV For Potassium 3.3 - 3.5 mEq/L 08/16/17 09:45 Magnesium Sulfate 4 gm/Sodium Chloride 100 ml @ 50 mls/hr UNSCH PRN IV For Magnesium 0.9 - 1.1 mg/dL 08/16/17 09:45 Magnesium Oxide (Mag-Ox) 800 mg UNSCH PRN PO For Magnesium 1.2 - 1.6 mg/dL 08/16/17 09:45 Magnesium Sulfate 2 gm/Sodium Chloride 100 ml @ 50 mls/hr UNSCH PRN IV For Magnesium 1.2 - 1.6 mg/dL 08/16/17 09:45 Potassium Phosphate (K-Phos) 2,000 mg Q4H PRN PO For Phosphorus < 2.5 mg/dL 08/16/17 09:45 Sodium Phosphate 30 mmol/Sodium Chloride 250 ml @ 42 mls/hr UNSCH PRN IV For Phosphorus < 2.5 mg/dL 08/16/17 09:45 Potassium Phosphate (K-Phos) 2,000 mg UNSCH PRN PO/TUBE SEE LABEL COMMENTS 08/16/17 09:45 Potassium Phosphate 30 mmol/ Sodium Chloride 260 ml @ 42 mls/hr UNSCH PRN IV SEE LABEL COMMENTS 08/16/17 09:45 08/17/17 12:24 Daptomycin 500 mg/ Sodium Chloride 100 ml @ 200 mls/hr Q24H IV 08/17/17 11:00 08/21/17 11:29 Metoprolol Tartrate (Lopressor) 50 mg Q12HR PO 08/17/17 21:00 08/22/17 08:32 Hydralazine HCl (Apresoline) 50 mg Q8HR PO 08/19/17 08:30 08/22/17 06:00 Meropenem 1000 mg/ Sodium Chloride 100 ml @ 200 mls/hr Q8H IV 08/19/17 18:00 08/22/17 08:33 Methylprednisolone Sodium Succinate (SoluMEDROL INJ) 40 mg Q12H IV PUSH 08/22/17 10:00 08/22/17 08:34 Objective: Vital Signs Date Time Temp Pulse Resp B/P (MAP) Pulse Ox O2 Delivery O2 Flow Rate FiO2 08/22/17 10:00 71 08/22/17 08:11 98 Nasal Cannula 2.00 08/22/17 08:00 83 08/22/17 08:00 97.9 83 33 129/72 (91) 98 08/22/17 06:00 86 08/22/17 04:45 82 28 98 08/22/17 04:30 81 30 141/74 (96) 98 08/22/17 04:15 80 29 97 08/22/17 04:00 98.0 80 27 137/70 (92) 98 08/22/17 04:00 80 08/22/17 03:45 80 28 98 08/22/17 03:30 78 24 135/75 (95) 97 08/22/17 03:15 74 29 97 08/22/17 03:00 77 32 129/73 (91) 96 08/22/17 02:31 65 25 144/69 (94) 99 08/22/17 02:30 69 27 99 5/21/18 02:00 74 08/22/17 02:00 74 25 123/72 (89) 98 08/22/17 01:30 81 30 131/66 (87) 96 08/22/17 01:00 82 30 125/67 (86) 97 08/22/17 00:30 82 33 134/71 (92) 98 08/22/17 00:00 97.9 82 29 99 08/22/17 00:00 82 08/21/17 23:31 77 30 131/72 (91) 99 08/21/17 23:30 74 28 98 08/21/17 23:05 78 39 133/63 (86) 95 08/21/17 23:00 79 21 96 08/21/17 22:45 95 Nasal Cannula 3.00 08/21/17 22:30 75 9 136/68 (90) 100 08/21/17 22:00 90 08/21/17 22:00 90 38 138/69 (92) 97 08/21/17 21:30 87 37 142/67 (92) 98 08/21/17 21:03 89 40 138/65 (89) 98 08/21/17 21:00 89 35 141/64 (89) 100 08/21/17 20:37 92 36 147/70 (95) 98 08/21/17 20:30 88 29 133/73 (93) 99 08/21/17 20:00 87 08/21/17 20:00 97.7 87 10 135/65 (88) 100 08/21/17 19:30 91 29 128/78 (95) 99 08/21/17 19:00 91 34 125/71 (89) 97 08/21/17 18:00 85 08/21/17 16:00 80 08/21/17 16:00 97.7 80 13 119/67 (84) 100 08/21/17 14:00 79 08/21/17 12:00 80 08/21/17 12:00 98.8 80 39 136/67 (90) 99 Laboratory Tests Test 08/21/17 05:26 08/22/17 06:58 White Blood Count 10.9 TH/MM3 8.8 TH/MM3 Red Blood Count 2.80 MIL/MM3 2.89 MIL/MM3 Hemoglobin 9.1 GM/DL 9.2 GM/DL Hematocrit 27.4 % 28.1 % Mean Corpuscular Volume 98.0 FL 97.2 FL Mean Corpuscular Hemoglobin 32.6 PG 32.0 PG Mean Corpuscular Hemoglobin Concent 33.3 % 32.9 % Red Cell Distribution Width 17.9 % 18.7 % Platelet Count 582 TH/MM3 553 TH/MM3 Mean Platelet Volume 7.9 FL 7.7 FL Neutrophils (%) (Auto) 89.6 % 85.5 % Lymphocytes (%) (Auto) 2.6 % 4.1 % Monocytes (%) (Auto) 7.6 % 10.2 % Eosinophils (%) (Auto) 0.0 % 0.0 % Basophils (%) (Auto) 0.2 % 0.2 % Neutrophils # (Auto) 9.8 TH/MM3 7.6 TH/MM3 Lymphocytes # (Auto) 0.3 TH/MM3 0.4 TH/MM3 Monocytes # (Auto) 0.8 TH/MM3 0.9 TH/MM3 Eosinophils # (Auto) 0.0 TH/MM3 0.0 TH/MM3 Basophils # (Auto) 0.0 TH/MM3 0.0 TH/MM3 CBC Comment DIFF FINAL DIFF FINAL Differential Comment Laboratory Tests Test 08/21/17 05:26 08/22/17 06:58 Blood Urea Nitrogen 41 MG/DL 44 MG/DL Creatinine 0.83 MG/DL 0.90 MG/DL Random Glucose 115 MG/DL 124 MG/DL Total Protein 8.3 GM/DL Albumin 2.4 GM/DL Calcium Level 8.6 MG/DL 8.7 MG/DL Alkaline Phosphatase 125 U/L Aspartate Amino Transf (AST/SGOT) 47 U/L Alanine Aminotransferase (ALT/SGPT) 60 U/L Total Bilirubin 0.7 MG/DL Sodium Level 143 MEQ/L 137 MEQ/L Potassium Level 4.3 MEQ/L 4.3 MEQ/L Chloride Level 103 MEQ/L 98 MEQ/L Carbon Dioxide Level 31.8 MEQ/L 30.7 MEQ/L Anion Gap 8 MEQ/L 8 MEQ/L Estimat Glomerular Filtration Rate 67 ML/MIN 61 ML/MIN Microbiology Date/Time Source Procedure Growth Status 08/22/17 00:50 Urine Catheterized Urine Urine Culture Pending Received 08/19/17 23:02 Urine Catheterized Urine Urine Culture - Preliminary Yeast Species Resulted Imaging: Lumbar Spine CT 08/21/17 0000 Signed Impressions: Service Date/Time: Monday, August 21, 2017 20:47 - CONCLUSION: 1. Postsurgical features of removal of posterior fixation hardware and placement of anterior fixation hardware at L4-5 and S1 with laminectomy at L4. 2. Surgical drain extends to the mid L4 level in the posterior lumbar soft tissues. There is low density soft tissue stranding and fluid measuring up to 2.7 cm and thickness extending just caudal from the surgical drain without peripherally enhancing focal fluid collection. Librado Hernandez MD Chest X-Ray 08/21/17 0000 Signed Impressions: Service Date/Time: Monday, August 21, 2017 21:23 - CONCLUSION: 1. Compensated cardiomegaly. 2. No acute abnormality or significant interval change. Librado Hernandez MD Chest X-Ray 08/18/17 0000 Signed Impressions: Service Date/Time: August 10:12 - CONCLUSION: 1. Patchy bilateral airspace disease and areas of pleural thickening, unchanged. 2. Stable cardiomegaly. 3. Interval removal of the endotracheal and nasogastric tubes. 4. Stable soft tissue calcification/ossification over the left humerus/shoulder Rogelio Santos MD Chest X-Ray 08/15/17 0600 Signed Impressions: Service Date/Time: Tuesday, August 15, 2017 05:18 - CONCLUSION: 1. Stable patchy basilar airspace disease and pleural thickening. Endotracheal tube and nasogastric tube unchanged. Fareed Masterson MD Chest X-Ray 08/11/17 0600 Signed Impressions: Service Date/Time: August 03:16 - CONCLUSION: Mild interval improvement in bilateral airspace disease with significant residual. Epifanio Sweeney MD Chest X-Ray 08/05/17 0600 Signed Impressions: Service Date/Time: Saturday, August 05, 2017 04:54 - CONCLUSION: Normal placement of nasogastric tube. Grossly stable aeration Sterling Aguilar MD Lumbar Spine CT 08/04/17 0000 Signed Impressions: Service Date/Time: August 13:46 - CONCLUSION: 1. There is low density in the soft tissues at the recent laminectomy site L4-L5 measuring up to 2.4 cm in thickness with out deformity of the posterior thecal sac at the laminectomy site. 2. Stable anterolisthesis at L5-S1 with bony fusion. 3. 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 Maykel Singh MD Abdomen/Pelvis CT 08/04/17 0000 Signed Impressions: Service Date/Time: August 13:46 - CONCLUSION: 1. There is stool diffusely throughout the colon suggesting constipation. 2. The solid organs of the abdomen are grossly intact. 3. No free air free fluid seen within the abdomen. No abscess is identified. 4. Small amount of free fluid within the abdomen. 5. Bilateral pleural effusions and consolidation. 6. Cardiomegaly. 7. 2 mm nonobstructing stone in the lower pole collecting system of the right kidney. 8. Anasarca. Mil Toro MD Abdomen Fluoroscopy 08/04/17 0000 Signed Impressions: Service Date/Time: August 17:00 - CONCLUSION: Uncomplicated nasoenteric suction type catheter (NGT) placement as above. Librado Hernandez MD PHYSICAL EXAMINATION: GENERAL: Awake and alert. Responsive. HEENT: Extraocular movements intact. No icterus. Mucosa appears moist. NECK: No swelling or adenopathy. LUNGS: Clear breath sounds. HEART: Irregular S1 and S2. No audible murmurs, rubs or gallops. ABDOMEN: Slightly distended, soft, normal bowel sounds. BACK: KAY drainage catheter in place. Little clear serous drainage in the bulb. Necrotic pressure ulcers which are dry on both sides of the sacrum. EXTREMITIES: No clubbing, cyanosis. trace edema of the upper extremities. SKIN: No rash. NEUROLOGIC: No gross focal finding. PSYCHIATRIC: Pleasant, calm and cooperative. IMPRESSION: 1. Septic shock. Improved. 2. Acute hypercapnic respiratory failure. Extubated. Still continues to feel somewhat short of breath. Receives intermittent BiPAP. 3. Acute renal failure. Improving 4. Shock liver, probably from sepsis. LFTs improving. 5. Lung infiltrate. Including thickening. Improved. 6. Osteomyelitis of the lumbar spine. Patient was placed on IV antibiotics By ID at [facility] ([place], [place]). The patient is status post hardware removal from the lumbar spine and noted to have methicillin-resistant Staph aureus on culture. She received a course of IV vancomycin which was completed on 07/29/2017. 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 Has drain in place at the lumbar spine. She was due to have an appointment at [facility] in [place] later this month to assess the lumbar wound and possibly remove the lumbar drainage catheter. 6. Candiduria. Receive Diflucan treatment. Still with Denise in the urine which likely is colonization. 7. Leukocytosis. Abnormal chest x-ray. Recent extubation. Recent broad antibiotics. Improved. RECOMMENDATIONS: 1. Continue the Daptomycin every 24 hours. Treatment until September 09, 2017. 2. Monitor clinical status. 3. Arrangements for outpatient IV daptomycin can be made from ID standpoint. 4. Monitor CPK. Ordered for today. Dion Wing MD August 24, 2017 12:39
--- NOTE | 2017-08-24 15:28 | HHI.CCPN ---
Subjective Remarks/Hospital Course 76-year-old female resident of the long term presents with complaints of respiratory difficulty. Onset was today. She is also complaining with some chest discomfort. She denies productive cough. Her symptoms are moderate to severe with no exacerbating factors. This patient was reportedly just discharged from [facility] with discitis secondary to MRSA. 53: Afebrile. Early this a.m. patient still having respiratory difficulty noted metabolic acidosis with a bicarb level 13, sodium bicarbonate infusion continues. She noticed to have respiratory distress ABGs performed. Impending intubation 7.10. Patient noted to have KAY drain emanating from back with dressing taken down no area redness yellow fluid and KAY drain sent for wound culture analysis. Upon further investigation patient's brother at bedside patient had lumbar hardware removed from [facility] in [place] approximately 6 weeks ago secondary to hardware eroding through the back and could be visualized on site. 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 Gottlieb cultures are pending. Attempts at medical record release forms from [facility] are pending. Patient previously last week at [facility] for acute kidney injury/urinary tract infection, attempting to obtain medical record. Patient was discharged approximately 2-3 days ago per report. This a.m. patient went into A. fib RVR with a heart rate in the 150s patient was given metoprolol 2 doses heart rate 112, patient is known to have chronic atrial fibrillation previously on Cardizem and digoxin 0.125 IV 1 dose Cardizem reinitiated. Discussion with patient regarding intubation and patient' s brother at bedside patient desires aggressive measures be undertaken patient requests intubation if needed and to remain a full code. Noted open areas skin wound areas on the lower extremities well-healed skin graft site left thigh wound care has been consulted. Palliative care also has been consulted to define goals of care. 08/05: Patient noted with elevated INR, Coumadin has been discontinued for 2 days. Vitamin K ordered. No active signs of bleeding. Patient on sedation vacation following commands. Afib rate controlled 70's-80's since addition to p.o. Cardizem. 6: Patient is currently on PSV trial FiO2 35%. Minimal secretions. Tolerating tube feeds. No bowel movement yesterday. Follows commands. 08/08: Temperature currently 98.8. Adequate weaning parameters however no cough leak. We will give dexamethasone 1 day and recheck cuff leak in a.m. Awake and follows commands. Transaminases normalized. Creatinine continues to slowly rise. 08/09: No events overnight. Patient is lethargic, easily arousable, tolerating CPAP at 10/5. T-max of 99.9. Still no cuff leak. Urine output is appropriate , with 3650 mL's over the last 24 hours. No family present at bedside. 08/10: No events over the night. Patient is awake, complaining of back pain, on fentanyl at 150 mics/hr. Tolerating CPAP 15/5. Afebrile over the night, with a T-max of 98.8. Negative fluid balance over the last 24 hours, -500 cc. 08/11: Patient remains intubated and sedated. She did well over the night. T- max of 98.6. She continues to be on fentanyl drip for back pain, asleep, easily arousable, follows commands. 08/12: No events over the night. Patient remains intubated, on fentanyl drip, easily arousable, following commands. Great response to diuretics, more than 3600 mL's urine output. Patient tolerated CPAP well yesterday but after being cleaned she developed tachycardia and tachypnea requiring full support. T-max of 99.3. 08/13: No events over the night. T-max of 98.6. She responded great to diuresis post Lasix, negative more than 3.3 L over the last 24 hours. She remains on fentanyl drip, lethargic, easily arousable. Oxygenation is unchanged. Chest x-ray reviewed, ET tube is in good position, 3 cm above paulo , unchanged bilateral opacities. 08/14: Patient remains intubated, on fentanyl infusion at 250 mcg/hour. T-max of 99.7. Negative almost 1 L over last 24 hours. Being but easily arousable, denies any complaints. On CPAP 12/5 tolerating well. 08/15 Patient is lying in bed in NAD. On BIPAP 01/09 with 50% FIO2. Afebrile. s/p extubation yesterday. 08/16 Patient was placed on BIPAP overnight. Afebrile 08/17 Patient is on 5L oxygen, afebrile. 08/18 No events overnight. Patient used BIPAP for 4 hrs overnight. 08/19 No events overnight. On 5L oxygen. Afebrile 08/20 On 5 L NC, appears tachypneic. Afebrile. 08/21 Says she isn't feeling well today but unable to localize anything specific. Afebrile. No leukocytosis. No chest pain. She appears slightly tachypneic but denies shortness of breath. There is serous drainage around her lumbar drain site that is soaking pads. 08/22: Awake and alert. On nasal cannula. Drainage around lumbar drain site noted. Consult neurosurgery Dr. Rivera who recommends transferring patient to [facility] where she had lumbar surgery. Subjective: 08/23 Drain has no output and not holding suction, leakage of serous fluid around drain site. I had replaced the bulb without improvement. Discussed with [facility] Neurosurgery, Nancy, who is PA for Dr. Jhon Wilson who communicated with Dr. Wilson as well and then called me back. Update provided regarding clinical condition, reason for admission, imaging, labs, presence of large sacral decub ulcers. Recommended patient followup with him when she has completed antibiotic course (daptomycin to be completed 09/09 per ). No need to transfer at this time. Suspects drain can be removed but defers management of drain to Dr. Shirley, plastic surgery. Discussed with Dr. Dela Cruz who is resident with Dr. Shirley. He recommends applying bacitracin ointment around the drain site to try to regain seal. If drain still not holding suction after this, it is okay to remove. Nurse did assist me with rolling the patient and I tried this but was unable to get a good seal with the dependent edema and thin unsubstantial tissue surrounding the drain. The drain was removed. 08/24: On nasal cannula. Unstageable sacral wound. Not in any acute distress. Objective Vital Signs Date Time Temp Pulse Resp B/P (MAP) Pulse Ox O2 Delivery O2 Flow Rate FiO2 08/24/17 14:00 92 08/24/17 12:45 31 08/24/17 12:00 98.1 151/75 (100) 98 08/24/17 08:22 Nasal Cannula 2.00 Intake and Output 08/24/17 08/24/17 08/24/17 07:59 15:59 23:59 Intake Total 400 ml Output Total 500 ml Balance -100 ml Result Diagram: 08/23/17 0553 08/23/17 0553 Other Results Microbiology Date/Time Source Procedure Growth Status 08/22/17 00:50 Urine Catheterized Urine Urine Culture - Final Denise Glabrata Complete Imaging Last Impressions Chest X-Ray 08/18/17 0000 Signed Impressions: Service Date/Time: August 10:12 - CONCLUSION: 1. Patchy bilateral airspace disease and areas of pleural thickening, unchanged. 2. Stable cardiomegaly. 3. Interval removal of the endotracheal and nasogastric tubes. 4. Stable soft tissue calcification/ossification over the left humerus/shoulder Rogelio Santos MD Lumbar Spine CT 08/04/17 0000 Signed Impressions: Service Date/Time: August 13:46 - CONCLUSION: 1. There is low density in the soft tissues at the recent laminectomy site L4-L5 measuring up to 2.4 cm in thickness with out deformity of the posterior thecal sac at the laminectomy site. 2. Stable anterolisthesis at L5-S1 with bony fusion. 3. 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 Maykel Singh MD Abdomen/Pelvis CT 08/04/17 0000 Signed Impressions: Service Date/Time: August 13:46 - CONCLUSION: 1. There is stool diffusely throughout the colon suggesting constipation. 2. The solid organs of the abdomen are grossly intact. 3. No free air free fluid seen within the abdomen. No abscess is identified. 4. Small amount of free fluid within the abdomen. 5. Bilateral pleural effusions and consolidation. 6. Cardiomegaly. 7. 2 mm nonobstructing stone in the lower pole collecting system of the right kidney. 8. Anasarca. Mil Toro MD Abdomen Fluoroscopy 08/04/17 0000 Signed Impressions: Service Date/Time: August 17:00 - CONCLUSION: Uncomplicated nasoenteric suction type catheter (NGT) placement as above. Librado Hernandez MD Procedures 08/04 -placement of NG tube IR Objective Remarks GENERAL: Patient is 76 yo lying in bed, awake. Kyphotic. SKIN: Warm and dry. The surgical incision is well healed. There is a 7cm x 7cm sacral decubitus ulcer with eschar on the right side of sacrum and another 7cm x 6 cm eschar on the left sacrum. HEAD: Normocephalic. EYES: No scleral icterus. No injection or drainage. NECK: Supple, trachea midline. No JVD or lymphadenopathy. CARDIOVASCULAR: Regular rate and rhythm without murmurs, gallops, or rubs. RESPIRATORY: Tachypneic, no accessory muscle use. Has anterior rales. GASTROINTESTINAL: Abdomen soft, non-tender, nondistended. Bowel sounds present. : Fam in place. MUSCULOSKELETAL: No cyanosis, trace edema. Neuro: More alert today and conversant. Moves all extremities Date of Insertion: August 04, 2017 A/P Problem List: (1) Afib ICD Code: I48.91 - Unspecified atrial fibrillation Status: Acute (2) EMIR (acute kidney injury) ICD Code: N17.9 - Acute kidney failure, unspecified Status: Acute (3) CKD (chronic kidney disease) stage 4, GFR 15-29 ml/min ICD Code: N18.4 - Chronic kidney disease, stage 4 (severe) Status: Acute (4) Renal insufficiency ICD Code: N28.9 - Disorder of kidney and ureter, unspecified Status: Acute (5) Chronic pain ICD Code: G89.29 - Other chronic pain Status: Acute (6) Atrial fibrillation with RVR ICD Code: I48.91 - Unspecified atrial fibrillation Status: Acute (7) Hyperkalemia ICD Code: E87.5 - Hyperkalemia Status: Acute (8) Severe sepsis ICD Code: A41.9 - Sepsis, unspecified organism; R65.20 - Severe sepsis without septic shock (9) Metabolic acidosis ICD Code: E87.2 - Acidosis Status: Resolved (10) Hypoglycemia ICD Code: E16.2 - Hypoglycemia, unspecified Status: Acute (11) Cardiomegaly ICD Code: I51.7 - Cardiomegaly Status: Acute Assessment and Plan Neuro/Psych: Chronic pain syndrome Status post removal of lumbar/sacral L5/S1 hardware 06/19 Chronic opioid use Monitor neuro status, avoid sedatives KAY drain removed 08/23 after discussion with [facility] neurosurgery, Dr. Wilson and plastics Dr. Dela Cruz (resident for Dr. Shirley). Lumbar CT showed surgical drain in posterior lumbar soft tissues, stranding and fluid ~2.7 cm just caudal to surgical drain without peripherally enhancing fluid collection. Patient originally had appointment with [facility] Neurosurgery 08/24 for followup and drain management. Now Dr. Wilson requests followup in Neurosurgery clinic sometime after antibiotics completed (daptomycin stop date planned for 09/09). Respiratory: Acute hypercapnic respiratory failure -resolved. Mild pulmonary hypertension COPD/asthma Continue with oxygen keep sats >92% Ipratropium aerosols every 6 hours Albuterol allergy Decrease Solumederol 40mg IV daily. LAsix 20 mg IV q12 hours x2 doses. Cardiovascular: A. fib RVR-resolved History of essential hypertension Chronic systolic congestive heart failure Chronic atrial fibrillation Monitor HR and BP keep MAP>65mmHg On Cardizem 60 mg Q6, Lopressor 50mg Q12, Hydralazine 50mg Q8 08/05 Echo- The left ventricular systolic function is moderately reduced with an EF 40-45%. Dyskinetic apical cap wall motion. The right ventricle is moderately dilated. Moderate mitral valve regurgitation. Aortic valve sclerosis is present. There is mild to moderate tricuspid valve regurgitation. There is estimated mild pulmonary hypertension present (range 40-50 mmHg). Home medications include isosorbide dinitrate 30 mg daily, metoprolol succinate 50 mg daily lisinopril 2.5 mg daily. These are currently on hold On Coumadin, dosing per pharmacy as per below. Renal: Acute renal insufficiency incentive chronic kidney disease stage IV Right renal stone/no hydronephrosis Monitor renal function, I/O's, electrolytes replacement per protocol REplace fam 08/21 FEN/GI: On PO diet Famotidine 10 mg twice daily for GI prophylaxis. Docusate sodium/senna 1 tablet twice daily, lactulose 30 cc twice daily for bowel regimen Heme/ID: Anemia of chronic disease Thrombocytopenia Leukocytosis MRSA Discitis Chronic warfarin use Funguria Sacral decubitus ulcers - wound care consulted.. Continue daptomycin. ID is following. CK 66 on 08/16. Daptomycin stop date 09/09. Followup with Shane SHEPARD some time after that. Drain was removed 08/23. Coumadin per pharmacy. Has been on hold since 08/17 because INR had increased significantly with modest dose. Now INR 1.4 and had deferred resuming coumadin until issues with drain resolved. Now will resume and pharmacist recommends warfarin 0.5 mg po every other day but will continue to hold for now until drain evaluated by neurosurgery. Medical records release obtained for medical records at [facility]/[place] and [facility] - The patient has a history of recent surgery at [facility] in [place]. She underwent removal of hardware from the lumbosacral spine L1-S1 because of exposed loosened hardware from prior surgery. She reportedly had surgery of the lumbosacral spine 10 years prior. The surgery at [facility] was on 06/27. Intraoperative culture reportedly had MRSA. She was put on antibiotics by infectious disease to complete on 07/29/2017. She was receiving intravenous vancomycin. The patient completed the course of the vancomycin. There is a notation in the medical record that she is ALLERGIC TO VANCOMYCIN. She is currently on daptomycin. She was seen by infectious disease physician at [facility] and reportedly will be in need of IV antibiotics for 6 weeks because of osteomyelitis of the lumbar spine. 08/06 UTI -Denise-fluconazole 200mg/d 08/04- Blood Cultures -NGTD Endocrine: Glucose monitoring per ICU protocol -- SSI Prophylaxis: GI Prophylaxis Famotidine BID DVT Prophylaxis - warfarin for a fib will also provide DVT prophylaxis. -- SCDs. Lines: PICC line Palliative care is following Consult and transfer to hospitalist service for further medical management. Critical care will be signing off. Please reconsult if needed. Level 2 follow-up Avi Edwards MD August 24, 2017 15:28
[2017-08-24] MEDS: CHLORHEXIDINE 0.12% (ORAL KIT) 15 ML CUP MT SCH (20:00)
[2017-08-25] VITALS (22 sets, daily range): BP systolic 128–156; BP diastolic 68–87; PULSE 69–101; RESP 24–39; TEMP 97.4–98; O2SAT 94–100
[2017-08-25] MEDS: CHLORHEXIDINE GLUCONATE 2 % 1 PACK (2 CLOTHS) TOP SCH (04:00)
[2017-08-25] MEDS: INSULIN NovoLIN REGULAR SUPPLEMENTAL SCALE SQ SCH ×6 (04:00→20:41)
[2017-08-25] MEDS: RESP: IPRATROPIUM 0.5 MG/2.5 ML NEB NEB SCH ×4 (04:27→22:00)
[2017-08-25] MEDS: ARTIFICIAL TEARS OPTH SOLN 15 ML BTL EACH EYE SCH ×2 (06:00→14:24)
[2017-08-25] MEDS: hydrALAZINE HCL 50 MG TAB PO SCH ×3 (06:00→20:29)
[2017-08-25] MEDS: SODIUM CHLORIDE 0.9% FLUSH 10 ML FLUSH IV FLUSH SCH ×4 (06:00→20:30)
[2017-08-25] MEDS: DILTIAZEM HCL 60 MG TAB PO SCH ×4 (06:00→18:25)
[2017-08-25 06:53] LABS: INTERNATIONAL NORMALIZED RATIO 1.3 RATIO; PROTHROMBIN TIME - PATIENT 13.5 SEC (9.8-11.6)
[2017-08-25] MEDS: CHLORHEXIDINE 0.12% (ORAL KIT) 15 ML CUP MT SCH ×2 (08:00→20:00)
[2017-08-25] MEDS: DOCUSATE SODIUM 50 MG/SENNA 8.6 MG TAB PO SCH ×2 (09:00→20:43)
[2017-08-25] MEDS: LACTULOSE SYRUP 20 GM/30 ML CUP PO SCH ×2 (09:00→20:30)
[2017-08-25] MEDS: MUPIROCIN 2% OINT 1 APPLIC/GM SYR EACH NARE SCH ×2 (09:34→20:31)
[2017-08-25] MEDS: methylPREDNISolone SOD SUCC 40 MG/1 ML VIAL IV PUSH SCH (09:34)
[2017-08-25] MEDS: ZINC SULFATE 220 MG CAP PO SCH (09:34)
[2017-08-25] MEDS: METOPROLOL TARTRATE 50 MG TAB PO SCH ×2 (09:35→20:30)
[2017-08-25] MEDS: ASCORBIC ACID 500 MG TAB PO SCH (09:35)
[2017-08-25] MEDS: FAMOTIDINE 20 MG TAB PO SCH ×2 (09:35→20:29)
[2017-08-25] MEDS: DAPTOmycin INJ 500 MG in SODIUM CHLORIDE 0.9% INJ 100 ML IV SCH (14:24)
[2017-08-25] MEDS ORDERED: WARFARIN SOD 1 MG TAB PO SCH (16:00)
--- NOTE | 2017-08-25 16:09 | HHI.CCPN ---
Subjective Remarks/Hospital Course 76-year-old female resident of the [place] presents with complaints of respiratory difficulty. Onset was today. She is also complaining with some chest discomfort. She denies productive cough. Her symptoms are moderate to severe with no exacerbating factors. This patient was reportedly just discharged from [facility] with discitis secondary to MRSA. 53: Afebrile. Early this a.m. patient still having respiratory difficulty noted metabolic acidosis with a bicarb level 13, sodium bicarbonate infusion continues. She noticed to have respiratory distress ABGs performed. Impending intubation 7.10. Patient noted to have KAY drain emanating from back with dressing taken down no area redness yellow fluid and KAY drain sent for wound culture analysis. Upon further investigation patient's brother at bedside patient had lumbar hardware removed from [facility] in [place] approximately 6 weeks ago secondary to hardware eroding through the back and could be visualized on site. 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 Gottlieb cultures are pending. Attempts at medical record release forms from [facility] are pending. Patient previously last week at [facility] for acute kidney injury/urinary tract infection, attempting to obtain medical record. Patient was discharged approximately 2-3 days ago per report. This a.m. patient went into A. fib RVR with a heart rate in the 150s patient was given metoprolol 2 doses heart rate 112, patient is known to have chronic atrial fibrillation previously on Cardizem and digoxin 0.125 IV 1 dose Cardizem reinitiated. Discussion with patient regarding intubation and patient' s brother at bedside patient desires aggressive measures be undertaken patient requests intubation if needed and to remain a full code. Noted open areas skin wound areas on the lower extremities well-healed skin graft site left thigh wound care has been consulted. Palliative care also has been consulted to define goals of care. 08/05: Patient noted with elevated INR, Coumadin has been discontinued for 2 days. Vitamin K ordered. No active signs of bleeding. Patient on sedation vacation following commands. Afib rate controlled 70's-80's since addition to p.o. Cardizem. 6: Patient is currently on PSV trial FiO2 35%. Minimal secretions. Tolerating tube feeds. No bowel movement yesterday. Follows commands. 08/08: Temperature currently 98.8. Adequate weaning parameters however no cough leak. We will give dexamethasone 1 day and recheck cuff leak in a.m. Awake and follows commands. Transaminases normalized. Creatinine continues to slowly rise. 08/09: No events overnight. Patient is lethargic, easily arousable, tolerating CPAP at 10/5. T-max of 99.9. Still no cuff leak. Urine output is appropriate , with 3650 mL's over the last 24 hours. No family present at bedside. 08/10: No events over the night. Patient is awake, complaining of back pain, on fentanyl at 150 mics/hr. Tolerating CPAP 15/5. Afebrile over the night, with a T-max of 98.8. Negative fluid balance over the last 24 hours, -500 cc. 08/11: Patient remains intubated and sedated. She did well over the night. T- max of 98.6. She continues to be on fentanyl drip for back pain, asleep, easily arousable, follows commands. 08/12: No events over the night. Patient remains intubated, on fentanyl drip, easily arousable, following commands. Great response to diuretics, more than 3600 mL's urine output. Patient tolerated CPAP well yesterday but after being cleaned she developed tachycardia and tachypnea requiring full support. T-max of 99.3. 08/13: No events over the night. T-max of 98.6. She responded great to diuresis post Lasix, negative more than 3.3 L over the last 24 hours. She remains on fentanyl drip, lethargic, easily arousable. Oxygenation is unchanged. Chest x-ray reviewed, ET tube is in good position, 3 cm above paulo , unchanged bilateral opacities. 08/14: Patient remains intubated, on fentanyl infusion at 250 mcg/hour. T-max of 99.7. Negative almost 1 L over last 24 hours. Being but easily arousable, denies any complaints. On CPAP 12/5 tolerating well. 08/15 Patient is lying in bed in NAD. On BIPAP 01/09 with 50% FIO2. Afebrile. s/p extubation yesterday. 08/16 Patient was placed on BIPAP overnight. Afebrile 08/17 Patient is on 5L oxygen, afebrile. 08/18 No events overnight. Patient used BIPAP for 4 hrs overnight. 08/19 No events overnight. On 5L oxygen. Afebrile 08/20 On 5 L NC, appears tachypneic. Afebrile. 08/21 Says she isn't feeling well today but unable to localize anything specific. Afebrile. No leukocytosis. No chest pain. She appears slightly tachypneic but denies shortness of breath. There is serous drainage around her lumbar drain site that is soaking pads. 08/22: Awake and alert. On nasal cannula. Drainage around lumbar drain site noted. Consult neurosurgery Dr. Rivera who recommends transferring patient to [facility] where she had lumbar surgery. Subjective: 08/23 Drain has no output and not holding suction, leakage of serous fluid around drain site. I had replaced the bulb without improvement. Discussed with [facility] Neurosurgery, Nancy, who is PA for Dr. Jhon Wilson who communicated with Dr. Wilson as well and then called me back. Update provided regarding clinical condition, reason for admission, imaging, labs, presence of large sacral decub ulcers. Recommended patient followup with him when she has completed antibiotic course (daptomycin to be completed 09/09 per ). No need to transfer at this time. Suspects drain can be removed but defers management of drain to Dr. Shirley, plastic surgery. Discussed with Dr. Dela Cruz who is resident with Dr. Shirley. He recommends applying bacitracin ointment around the drain site to try to regain seal. If drain still not holding suction after this, it is okay to remove. Nurse did assist me with rolling the patient and I tried this but was unable to get a good seal with the dependent edema and thin unsubstantial tissue surrounding the drain. The drain was removed. 08/24: On nasal cannula. Unstageable sacral wound. Not in any acute distress. 08/25: Remains on nasal cannula. Objective Vital Signs Date Time Temp Pulse Resp B/P (MAP) Pulse Ox O2 Delivery O2 Flow Rate FiO2 08/25/17 14:00 97 08/25/17 12:00 97.8 34 149/70 (96) 98 08/24/17 20:13 Nasal Cannula 2.00 Intake and Output 08/25/17 08/25/17 08/26/17 08:00 16:00 00:00 Intake Total 670 ml Output Total 602 ml Balance 68 ml Result Diagram: 08/23/17 0553 08/23/17 0553 Imaging Last Impressions Chest X-Ray 08/18/17 0000 Signed Impressions: Service Date/Time: August 10:12 - CONCLUSION: 1. Patchy bilateral airspace disease and areas of pleural thickening, unchanged. 2. Stable cardiomegaly. 3. Interval removal of the endotracheal and nasogastric tubes. 4. Stable soft tissue calcification/ossification over the left humerus/shoulder Rogelio Santos MD Lumbar Spine CT 08/04/17 0000 Signed Impressions: Service Date/Time: August 13:46 - CONCLUSION: 1. There is low density in the soft tissues at the recent laminectomy site L4-L5 measuring up to 2.4 cm in thickness with out deformity of the posterior thecal sac at the laminectomy site. 2. Stable anterolisthesis at L5-S1 with bony fusion. 3. 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 Maykel Singh MD Abdomen/Pelvis CT 08/04/17 0000 Signed Impressions: Service Date/Time: August 13:46 - CONCLUSION: 1. There is stool diffusely throughout the colon suggesting constipation. 2. The solid organs of the abdomen are grossly intact. 3. No free air free fluid seen within the abdomen. No abscess is identified. 4. Small amount of free fluid within the abdomen. 5. Bilateral pleural effusions and consolidation. 6. Cardiomegaly. 7. 2 mm nonobstructing stone in the lower pole collecting system of the right kidney. 8. Anasarca. Mil Toro MD Abdomen Fluoroscopy 08/04/17 0000 Signed Impressions: Service Date/Time: August 17:00 - CONCLUSION: Uncomplicated nasoenteric suction type catheter (NGT) placement as above. Librado Hernandez MD Procedures 08/04 -placement of NG tube IR Objective Remarks GENERAL: Patient is 76 yo lying in bed, awake. Kyphotic. SKIN: Warm and dry. The surgical incision is well healed. There is a 7cm x 7cm sacral decubitus ulcer with eschar on the right side of sacrum and another 7cm x 6 cm eschar on the left sacrum. HEAD: Normocephalic. EYES: No scleral icterus. No injection or drainage. NECK: Supple, trachea midline. No JVD or lymphadenopathy. CARDIOVASCULAR: Regular rate and rhythm without murmurs, gallops, or rubs. RESPIRATORY: Tachypneic, no accessory muscle use. Has anterior rales. GASTROINTESTINAL: Abdomen soft, non-tender, nondistended. Bowel sounds present. : Fam in place. MUSCULOSKELETAL: No cyanosis, trace edema. Neuro: More alert today and conversant. Moves all extremities Date of Insertion: August 04, 2017 A/P Problem List: (1) Afib ICD Code: I48.91 - Unspecified atrial fibrillation Status: Acute (2) EMIR (acute kidney injury) ICD Code: N17.9 - Acute kidney failure, unspecified Status: Acute (3) CKD (chronic kidney disease) stage 4, GFR 15-29 ml/min ICD Code: N18.4 - Chronic kidney disease, stage 4 (severe) Status: Acute (4) Renal insufficiency ICD Code: N28.9 - Disorder of kidney and ureter, unspecified Status: Acute (5) Chronic pain ICD Code: G89.29 - Other chronic pain Status: Acute (6) Atrial fibrillation with RVR ICD Code: I48.91 - Unspecified atrial fibrillation Status: Acute (7) Hyperkalemia ICD Code: E87.5 - Hyperkalemia Status: Acute (8) Severe sepsis ICD Code: A41.9 - Sepsis, unspecified organism; R65.20 - Severe sepsis without septic shock (9) Metabolic acidosis ICD Code: E87.2 - Acidosis Status: Resolved (10) Hypoglycemia ICD Code: E16.2 - Hypoglycemia, unspecified Status: Acute (11) Cardiomegaly ICD Code: I51.7 - Cardiomegaly Status: Acute Assessment and Plan Neuro/Psych: Chronic pain syndrome Status post removal of lumbar/sacral L5/S1 hardware 06/19 Chronic opioid use Monitor neuro status, avoid sedatives KAY drain removed 08/23 after discussion with [facility] neurosurgery, Dr. Wilson and plastics Dr. Dela Cruz (resident for Dr. Shirley). Lumbar CT showed surgical drain in posterior lumbar soft tissues, stranding and fluid ~2.7 cm just caudal to surgical drain without peripherally enhancing fluid collection. Patient originally had appointment with [facility] Neurosurgery 08/24 for followup and drain management. Now Dr. Wilson requests followup in Neurosurgery clinic sometime after antibiotics completed (daptomycin stop date planned for 09/09). Respiratory: Acute hypercapnic respiratory failure -resolved. Mild pulmonary hypertension COPD/asthma Continue with oxygen keep sats >92% Ipratropium aerosols every 6 hours Albuterol allergy Decrease Solumederol 40mg IV daily. LAsix 20 mg IV q12 hours x2 doses. Cardiovascular: A. fib RVR-resolved History of essential hypertension Chronic systolic congestive heart failure Chronic atrial fibrillation Monitor HR and BP keep MAP>65mmHg On Cardizem 60 mg Q6, Lopressor 50mg Q12, Hydralazine 50mg Q8 08/05 Echo- The left ventricular systolic function is moderately reduced with an EF 40-45%. Dyskinetic apical cap wall motion. The right ventricle is moderately dilated. Moderate mitral valve regurgitation. Aortic valve sclerosis is present. There is mild to moderate tricuspid valve regurgitation. There is estimated mild pulmonary hypertension present (range 40-50 mmHg). Home medications include isosorbide dinitrate 30 mg daily, metoprolol succinate 50 mg daily lisinopril 2.5 mg daily. These are currently on hold On Coumadin, dosing per pharmacy as per below. Renal: Acute renal insufficiency incentive chronic kidney disease stage IV Right renal stone/no hydronephrosis Monitor renal function, I/O's, electrolytes replacement per protocol REplace fam 08/21 FEN/GI: On PO diet Famotidine 10 mg twice daily for GI prophylaxis. Docusate sodium/senna 1 tablet twice daily, lactulose 30 cc twice daily for bowel regimen Heme/ID: Anemia of chronic disease Thrombocytopenia Leukocytosis MRSA Discitis Chronic warfarin use Funguria Sacral decubitus ulcers - wound care consulted.. Continue daptomycin. ID is following. CK 66 on 08/16. Daptomycin stop date 09/09. Followup with [facility] SHEPARD some time after that. Drain was removed 08/23. Coumadin per pharmacy. Has been on hold since 08/17 because INR had increased significantly with modest dose. Now INR 1.4 and had deferred resuming coumadin until issues with drain resolved. Now will resume and pharmacist recommends warfarin 0.5 mg po every other day but will continue to hold for now until drain evaluated by neurosurgery. Medical records release obtained for medical records at [facility]/[place] and [facility] - The patient has a history of recent surgery at [facility] in [place]. She underwent removal of hardware from the lumbosacral spine L1-S1 because of exposed loosened hardware from prior surgery. She reportedly had surgery of the lumbosacral spine 10 years prior. The surgery at [facility] was on 06/27. Intraoperative culture reportedly had MRSA. She was put on antibiotics by infectious disease to complete on 07/29/2017. She was receiving intravenous vancomycin. The patient completed the course of the vancomycin. There is a notation in the medical record that she is ALLERGIC TO VANCOMYCIN. She is currently on daptomycin. She was seen by infectious disease physician at [facility] and reportedly will be in need of IV antibiotics for 6 weeks because of osteomyelitis of the lumbar spine. 08/06 UTI -Denise-fluconazole 200mg/d 08/04- Blood Cultures -NGTD Endocrine: Glucose monitoring per ICU protocol -- SSI Prophylaxis: GI Prophylaxis Famotidine BID DVT Prophylaxis - warfarin for a fib will also provide DVT prophylaxis. -- SCDs. Lines: PICC line Palliative care is following Consult and transfer to hospitalist service for further medical management. Critical care will be signing off. Please reconsult if needed. Level 2 follow-up Avi Edwards MD August 25, 2017 16:09
[2017-08-25] MEDS: CYCLOBENZAPRINE HCL 10 MG TAB PO PRN (20:28)
[2017-08-26] VITALS (9 sets, daily range): BP systolic 113–145; BP diastolic 60–76; PULSE 69–100; RESP 18–29; TEMP 97.8–98.2; O2SAT 98–99
[2017-08-26] MEDS: DILTIAZEM HCL 60 MG TAB PO SCH ×5 (00:48→23:14)
[2017-08-26] MEDS: SODIUM CHLORIDE 0.9% FLUSH 10 ML FLUSH IV FLUSH SCH ×6 (00:57→23:15)
[2017-08-26] MEDS: ARTIFICIAL TEARS OPTH SOLN 15 ML BTL EACH EYE SCH ×4 (00:57→23:15)
[2017-08-26] MEDS: MORPHINE SULFATE ORAL SOLN 10 MG/0.5 ML SYRINGE PO PRN ×3 (00:57→16:08)
[2017-08-26] MEDS: INSULIN NovoLIN REGULAR SUPPLEMENTAL SCALE SQ SCH ×7 (04:00→23:16)
[2017-08-26] MEDS: CHLORHEXIDINE GLUCONATE 2 % 1 PACK (2 CLOTHS) TOP SCH (04:00)
[2017-08-26] MEDS: RESP: IPRATROPIUM 0.5 MG/2.5 ML NEB NEB SCH ×4 (04:00→21:32)
[2017-08-26] MEDS: hydrALAZINE HCL 50 MG TAB PO SCH ×3 (05:58→23:14)
[2017-08-26] MEDS: CHLORHEXIDINE 0.12% (ORAL KIT) 15 ML CUP MT SCH ×2 (08:00→20:00)
[2017-08-26] MEDS: LACTULOSE SYRUP 20 GM/30 ML CUP PO SCH ×2 (08:44→20:06)
[2017-08-26] MEDS: FAMOTIDINE 20 MG TAB PO SCH ×2 (08:45→20:06)
[2017-08-26] MEDS: METOPROLOL TARTRATE 50 MG TAB PO SCH ×2 (08:45→20:06)
[2017-08-26] MEDS: ASCORBIC ACID 500 MG TAB PO SCH (08:45)
[2017-08-26] MEDS: DOCUSATE SODIUM 50 MG/SENNA 8.6 MG TAB PO SCH ×2 (08:45→20:06)
[2017-08-26] MEDS: ZINC SULFATE 220 MG CAP PO SCH (08:45)
[2017-08-26] MEDS: MUPIROCIN 2% OINT 1 APPLIC/GM SYR EACH NARE SCH ×2 (08:45→20:06)
[2017-08-26] MEDS: methylPREDNISolone SOD SUCC 40 MG/1 ML VIAL IV PUSH SCH (08:57)
[2017-08-26 11:20] LABS: AUTOMATED NEUTROPHIL # 8.7 TH/MM3 (1.8-7.7); BASOPHIL % 0.1 % (0.0-2.0); EOSINOPHIL % 0.1 % (0.0-4.0); HEMATOCRIT 28.1 % (35.0-46.0); HEMOGLOBIN 9.1 GM/DL (11.6-15.3); LYMPH % 3.8 % (9.0-44.0); LYMPHOCYTE # 0.4 TH/MM3 (1.0-4.8); MEAN CELL VOLUME 97.3 FL (80.0-100.0); MEAN CORPUSCULAR HEMOGLOBIN 31.6 PG (27.0-34.0); MEAN CORPUSCULAR HGB CONC 32.4 % (32.0-36.0); MEAN PLATELET VOLUME 7.8 FL (7.0-11.0); MONO % 10.8 % (0.0-8.0); MONOCYTE # 1.1 TH/MM3 (0-0.9); NEUT % 85.2 % (16.0-70.0); PLATELET COUNT 329 TH/MM3 (150-450); RED BLOOD COUNT 2.89 MIL/MM3 (4.00-5.30); RED CELL DISTRIBUTION WIDTH 17.9 % (11.6-17.2); WHITE BLOOD COUNT 10.2 TH/MM3 (4.0-11.0)
[2017-08-26 11:29] LABS: INTERNATIONAL NORMALIZED RATIO 1.2 RATIO; PROTHROMBIN TIME - PATIENT 12.5 SEC (9.8-11.6)
[2017-08-26] MEDS: DAPTOmycin INJ 500 MG in SODIUM CHLORIDE 0.9% INJ 100 ML IV SCH (11:33)
[2017-08-26 11:43] LABS: ALBUMIN 2.3 GM/DL (3.4-5.0); AST (GOT) 50 U/L (15-37); BICARBONATE 32.4 MEQ/L (21.0-32.0); BLOOD UREA NITROGEN 45 MG/DL (7-18); CALCIUM 8.4 MG/DL (8.5-10.1); CHLORIDE 100 MEQ/L (98-107); CREATININE 0.72 MG/DL (0.50-1.00); GLOMERULAR FILTRATION RATE 79 ML/MIN (>89); GLUCOSE,RANDOM 88 MG/DL (74-106); MAGNESIUM 1.9 MG/DL (1.5-2.5); SODIUM (NA) 141 MEQ/L (136-145)
[2017-08-26 11:47] LABS: ALKALINE PHOSPHATASE 135 U/L (45-117); ALT (GPT) 67 U/L (10-53); TOTAL BILIRUBIN ADULT 1.4 MG/DL (0.2-1.0); TOTAL PROTEIN 7.5 GM/DL (6.4-8.2)
--- NOTE | 2017-08-26 14:24 | HHI.PR ---
Subjective Remarks Patient reports she is feeling okay. Denies any pain. We discussed discharge planning. Objective Vitals Vital Signs Date Time Temp Pulse Resp B/P (MAP) Pulse Ox O2 Delivery O2 Flow Rate FiO2 08/26/17 12:00 98.2 89 23 113/60 (77) 98 08/26/17 12:00 89 08/26/17 10:00 100 08/26/17 08:00 97.9 85 18 135/75 (95) 99 08/26/17 08:00 85 08/26/17 06:00 79 08/26/17 04:00 98.0 83 25 145/68 (93) 98 08/26/17 04:00 69 08/26/17 00:00 91 08/26/17 00:00 97.8 91 29 143/76 (98) 99 08/25/17 23:00 91 33 136/72 (93) 95 08/25/17 22:00 82 36 128/76 (93) 94 08/25/17 22:00 82 08/25/17 21:00 85 35 136/73 (94) 98 08/25/17 20:00 82 08/25/17 20:00 98.0 96 39 132/68 (89) 94 08/25/17 19:15 98 Nasal Cannula 2.00 08/25/17 18:00 95 08/25/17 17:00 87 08/25/17 16:00 94 08/25/17 16:00 97.7 94 28 153/73 (99) 97 08/25/17 15:00 101 I/O 08/25/17 08/25/17 08/25/17 08/26/17 08/26/17 08/26/17 07:00 15:00 23:00 07:00 15:00 23:00 Intake Total 670 ml 100 ml 720 ml Output Total 602 ml 600 ml 625 ml Balance 68 ml 100 ml -600 ml 95 ml Intake Oral 670 ml 620 ml Oral Supplement 100 ml IV Total 100 ml Output Urine Total 600 ml 600 ml 625 ml Stool Total 2 ml 0 ml Result Diagram: 08/26/17 1016 08/26/17 1016 Objective Remarks GENERAL: Patient appear frail. No acute distress. CARDIOVASCULAR: Normal rate and regular rhythm without murmurs, gallops, or rubs. RESPIRATORY: Good respiratory efforts. Breath sounds equal and clear to auscultation bilaterally. GASTROINTESTINAL: Abdomen soft, non-tender, non-distended. Normal active bowel sounds PSYCH: Appropriate mood and affect. Procedures 08/04 -placement of NG tube IR Date of Insertion: August 04, 2017 A/P Assessment and Plan 76-year-old female with: Chronic pain syndrome Status post removal of lumbar/sacral L5/S1 hardware 06/19 Chronic opioid use Monitor neuro status, avoid sedatives KAY drain removed 08/23 after discussion with [facility] neurosurgery, Dr. Wilson and plastics Dr. Dela Cruz (resident for Dr. Shirley). Lumbar CT showed surgical drain in posterior lumbar soft tissues, stranding and fluid ~2.7 cm just caudal to surgical drain without peripherally enhancing fluid collection. Patient originally had appointment with [facility] Neurosurgery 08/24 for followup and drain management. Now Dr. Wilson requests followup in Neurosurgery clinic sometime after antibiotics completed (daptomycin stop date planned for 09/09). Acute hypercapnic respiratory failure -resolved. Mild pulmonary hypertension COPD/asthma Continue with oxygen keep sats >92% Ipratropium aerosols every 6 hours Albuterol allergy Transition to oral prednisone A. fib RVR-resolved History of essential hypertension Chronic systolic congestive heart failure Chronic atrial fibrillation Monitor HR and BP keep MAP>65mmHg On Cardizem 60 mg Q6, Lopressor 50mg Q12, Hydralazine 50mg Q8 08/05 Echo- The left ventricular systolic function is moderately reduced with an EF 40-45%. Dyskinetic apical cap wall motion. The right ventricle is moderately dilated. Moderate mitral valve regurgitation. Aortic valve sclerosis is present. There is mild to moderate tricuspid valve regurgitation. There is estimated mild pulmonary hypertension present (range 40-50 mmHg). On Coumadin, dosing per pharmacy as per below. Acute renal insufficiency incentive chronic kidney disease stage IV Right renal stone/no hydronephrosis Monitor renal function, I/O's, electrolytes replacement per protocol Replace fam 08/21 Anemia of chronic disease Thrombocytopenia Leukocytosis MRSA Discitis Chronic warfarin use Funguria Sacral decubitus ulcers - wound care consulted.. Continue daptomycin. ID is following. CK 66 on 08/16. Daptomycin stop date 09/09. Followup with [facility] some time after that. Drain was removed 08/23. Coumadin per pharmacy. Medical records release obtained for medical records at [facility] - The patient has a history of recent surgery at [facility] in [place]. She underwent removal of hardware from the lumbosacral spine L1-S1 because of exposed loosened hardware from prior surgery. She reportedly had surgery of the lumbosacral spine 10 years prior. The surgery at [facility] was on 06/27. Intraoperative culture reportedly had MRSA. She was put on antibiotics by infectious disease to complete on 07/29/2017. She was receiving intravenous vancomycin. The patient completed the course of the vancomycin. There is a notation in the medical record that she is ALLERGIC TO VANCOMYCIN. She is currently on daptomycin. She was seen by infectious disease physician at [facility] and reportedly will be in need of IV antibiotics for 6 weeks because of osteomyelitis of the lumbar spine. 08/06 UTI -Denise-fluconazole 200mg/d 08/04- Blood Cultures -NGTD -- SSI Prophylaxis: GI Prophylaxis Famotidine BID DVT Prophylaxis - warfarin for a fib will also provide DVT prophylaxis. -- SCDs. Palliative care is following Discharge Planning Patient needs placement. Case management aware. I discussed with her today. She wants to think about whether or not she will return to her previous SNF. Gina Prasad MD August 26, 2017 14:24
[2017-08-27] VITALS (26 sets, daily range): BP systolic 105–140; BP diastolic 56–72; PULSE 48–83; RESP 21–40; TEMP 97.9–98.7; O2SAT 92–100
[2017-08-27] MEDS: RESP: IPRATROPIUM 0.5 MG/2.5 ML NEB NEB SCH ×2 (03:12→08:49)
[2017-08-27] MEDS: INSULIN NovoLIN REGULAR SUPPLEMENTAL SCALE SQ SCH ×5 (04:00→20:00)
[2017-08-27] MEDS: CHLORHEXIDINE GLUCONATE 2 % 1 PACK (2 CLOTHS) TOP SCH (04:00)
[2017-08-27] MEDS: SODIUM CHLORIDE 0.9% FLUSH 10 ML FLUSH IV FLUSH SCH ×5 (06:00→21:06)
[2017-08-27] MEDS: ARTIFICIAL TEARS OPTH SOLN 15 ML BTL EACH EYE SCH ×3 (06:11→21:06)
[2017-08-27] MEDS: hydrALAZINE HCL 50 MG TAB PO SCH ×3 (06:11→21:04)
[2017-08-27] MEDS: DILTIAZEM HCL 60 MG TAB PO SCH ×3 (06:11→17:47)
[2017-08-27] MEDS: CHLORHEXIDINE 0.12% (ORAL KIT) 15 ML CUP MT SCH ×2 (08:00→20:00)
[2017-08-27] MEDS: LACTULOSE SYRUP 20 GM/30 ML CUP PO SCH ×2 (09:11→21:00)
[2017-08-27] MEDS: MUPIROCIN 2% OINT 1 APPLIC/GM SYR EACH NARE SCH ×2 (09:11→21:03)
[2017-08-27] MEDS: METOPROLOL TARTRATE 50 MG TAB PO SCH ×2 (09:11→21:04)
[2017-08-27] MEDS: FAMOTIDINE 20 MG TAB PO SCH ×2 (09:12→21:04)
[2017-08-27] MEDS: DOCUSATE SODIUM 50 MG/SENNA 8.6 MG TAB PO SCH ×2 (09:12→21:00)
[2017-08-27] MEDS: ZINC SULFATE 220 MG CAP PO SCH (09:12)
[2017-08-27] MEDS: ASCORBIC ACID 500 MG TAB PO SCH (09:12)
--- NOTE | 2017-08-27 09:34 | HHI.PR ---
Subjective Remarks Patient reports she is feeling okay today. Her brother is currently in the hospital. She has not been able to talk to him regarding her discharge planning. Objective Vitals Vital Signs Date Time Temp Pulse Resp B/P (MAP) Pulse Ox O2 Delivery O2 Flow Rate FiO2 08/27/17 08:49 100 Nasal Cannula 2.00 08/27/17 04:00 98.4 65 30 127/69 (88) 98 08/27/17 04:00 65 08/27/17 00:00 98.7 78 29 118/72 (87) 100 08/27/17 00:00 78 08/26/17 21:33 98 Nasal Cannula 2.00 08/26/17 20:00 85 08/26/17 20:00 98.2 85 26 129/62 (84) 98 08/26/17 16:00 77 08/26/17 16:00 97.8 77 26 127/61 (83) 98 08/26/17 15:14 Nasal Cannula 2.00 08/26/17 12:00 98.2 89 23 113/60 (77) 98 08/26/17 12:00 89 08/26/17 10:00 100 I/O 08/26/17 08/26/17 08/26/17 08/27/17 08/27/17 08/27/17 07:00 15:00 23:00 07:00 15:00 23:00 Intake Total 720 ml 940 ml 240 ml Output Total 625 ml 450 ml 475 ml Balance 95 ml 490 ml -235 ml Intake Oral 620 ml 840 ml 240 ml Oral Supplement 100 ml IV Total 100 ml Output Urine Total 625 ml 450 ml 475 ml Stool Total 0 ml # Bowel Movements 0 0 Result Diagram: 08/26/17 1016 08/26/17 1016 Imaging Last Impressions Lumbar Spine CT 08/21/17 0000 Signed Impressions: Service Date/Time: Monday, August 21, 2017 20:47 - CONCLUSION: 1. Postsurgical features of removal of posterior fixation hardware and placement of anterior fixation hardware at L4-5 and S1 with laminectomy at L4. 2. Surgical drain extends to the mid L4 level in the posterior lumbar soft tissues. There is low density soft tissue stranding and fluid measuring up to 2.7 cm and thickness extending just caudal from the surgical drain without peripherally enhancing focal fluid collection. Librado Hernandez MD Chest X-Ray 08/21/17 0000 Signed Impressions: Service Date/Time: Monday, August 21, 2017 21:23 - CONCLUSION: 1. Compensated cardiomegaly. 2. No acute abnormality or significant interval change. Librado Hernandez MD Abdomen/Pelvis CT 08/04/17 0000 Signed Impressions: Service Date/Time: August 13:46 - CONCLUSION: 1. There is stool diffusely throughout the colon suggesting constipation. 2. The solid organs of the abdomen are grossly intact. 3. No free air free fluid seen within the abdomen. No abscess is identified. 4. Small amount of free fluid within the abdomen. 5. Bilateral pleural effusions and consolidation. 6. Cardiomegaly. 7. 2 mm nonobstructing stone in the lower pole collecting system of the right kidney. 8. Anasarca. Mil Toro MD Abdomen Fluoroscopy 08/04/17 0000 Signed Impressions: Service Date/Time: August 17:00 - CONCLUSION: Uncomplicated nasoenteric suction type catheter (NGT) placement as above. Librado Hernandez MD Objective Remarks GENERAL: Patient appear frail. No acute distress. CARDIOVASCULAR: Normal rate and regular rhythm without murmurs, gallops, or rubs. RESPIRATORY: Good respiratory efforts. Breath sounds equal and clear to auscultation bilaterally. GASTROINTESTINAL: Abdomen soft, non-tender, non-distended. Normal active bowel sounds PSYCH: Appropriate mood and affect. Procedures 08/04 -placement of NG tube IR Date of Insertion: August 04, 2017 A/P Assessment and Plan 76-year-old female with: Chronic pain syndrome Status post removal of lumbar/sacral L5/S1 hardware 06/19 Chronic opioid use Monitor neuro status, avoid sedatives KAY drain removed 08/23 after discussion with [facility] neurosurgery, Dr. Wilson and plastics Dr. Dela Cruz (resident for Dr. Shirley). Lumbar CT showed surgical drain in posterior lumbar soft tissues, stranding and fluid ~2.7 cm just caudal to surgical drain without peripherally enhancing fluid collection. Patient originally had appointment with [facility] Neurosurgery 08/24 for followup and drain management. Now Dr. Wilson requests followup in Neurosurgery clinic sometime after antibiotics completed (daptomycin stop date planned for 09/09). Acute hypercapnic respiratory failure -resolved. Mild pulmonary hypertension COPD/asthma Continue with oxygen keep sats >92% Ipratropium aerosols every 6 hours Albuterol allergy Transition to oral prednisone A. fib RVR-resolved History of essential hypertension Chronic systolic congestive heart failure Chronic atrial fibrillation Monitor HR and BP keep MAP>65mmHg On Cardizem 60 mg Q6, Lopressor 50mg Q12, Hydralazine 50mg Q8 08/05 Echo- The left ventricular systolic function is moderately reduced with an EF 40-45%. Dyskinetic apical cap wall motion. The right ventricle is moderately dilated. Moderate mitral valve regurgitation. Aortic valve sclerosis is present. There is mild to moderate tricuspid valve regurgitation. There is estimated mild pulmonary hypertension present (range 40-50 mmHg). On Coumadin, dosing per pharmacy as per below. Acute renal insufficiency incentive chronic kidney disease stage IV Right renal stone/no hydronephrosis Monitor renal function, I/O's, electrolytes replacement per protocol Replace fam 08/21 Anemia of chronic disease Thrombocytopenia Leukocytosis MRSA Discitis Chronic warfarin use Funguria Sacral decubitus ulcers - wound care consulted.. Continue daptomycin. ID is following. CK 66 on 08/16. Daptomycin stop date 09/09. Followup with [facility] some time after that. Drain was removed 08/23. Coumadin per pharmacy. Medical records release obtained for medical records at [facility]/[place] and [facility] - The patient has a history of recent surgery at [facility] in [place]. She underwent removal of hardware from the lumbosacral spine L1-S1 because of exposed loosened hardware from prior surgery. She reportedly had surgery of the lumbosacral spine 10 years prior. The surgery at [facility] was on 06/27. Intraoperative culture reportedly had MRSA. She was put on antibiotics by infectious disease to complete on 07/29/2017. She was receiving intravenous vancomycin. The patient completed the course of the vancomycin. There is a notation in the medical record that she is ALLERGIC TO VANCOMYCIN. She is currently on daptomycin. She was seen by infectious disease physician at [facility] and reportedly will be in need of IV antibiotics for 6 weeks because of osteomyelitis of the lumbar spine. 08/06 UTI -Denise-fluconazole 200mg/d 08/04- Blood Cultures -NGTD -- SSI Prophylaxis: GI Prophylaxis Famotidine BID DVT Prophylaxis - warfarin for a fib will also provide DVT prophylaxis. -- SCDs. Palliative care is following Discharge Planning Patient needs placement. Case management aware. Patient's brother is currently hospitalized. She states she needs to talk to him regarding discharge planning. She is still considering whether or not she will return to her previous SNF. Gina Prasad MD August 27, 2017 09:34
[2017-08-27] MEDS: DAPTOmycin INJ 500 MG in SODIUM CHLORIDE 0.9% INJ 100 ML IV SCH (13:16)
[2017-08-27] MEDS: MORPHINE SULFATE ORAL SOLN 10 MG/0.5 ML SYRINGE PO PRN (14:25)
[2017-08-27] MEDS ORDERED: WARFARIN SOD 1 MG TAB PO SCH (16:00)
[2017-08-28] VITALS (26 sets, daily range): BP systolic 126–150; BP diastolic 60–67; PULSE 55–100; RESP 16–32; TEMP 97.7–98.7; O2SAT 92–100
[2017-08-28] MEDS: DILTIAZEM HCL 60 MG TAB PO SCH ×4 (00:19→18:03)
[2017-08-28] MEDS: CHLORHEXIDINE GLUCONATE 2 % 1 PACK (2 CLOTHS) TOP SCH (04:00)
[2017-08-28] MEDS: INSULIN NovoLIN REGULAR SUPPLEMENTAL SCALE SQ SCH ×6 (04:00→20:00)
[2017-08-28] MEDS: ARTIFICIAL TEARS OPTH SOLN 15 ML BTL EACH EYE SCH ×3 (06:00→21:55)
[2017-08-28] MEDS: hydrALAZINE HCL 50 MG TAB PO SCH ×3 (07:04→21:50)
[2017-08-28 07:18] LABS: INTERNATIONAL NORMALIZED RATIO 1.1 RATIO; PROTHROMBIN TIME - PATIENT 11.1 SEC (9.8-11.6)
[2017-08-28] MEDS: CHLORHEXIDINE 0.12% (ORAL KIT) 15 ML CUP MT SCH ×2 (08:00→20:00)
--- NOTE | 2017-08-28 10:40 | HHI.PR ---
Subjective Remarks Patient reports that she is feeling ok. No new issues. Brother still in the hospital. Objective Vitals Vital Signs Date Time Temp Pulse Resp B/P (MAP) Pulse Ox O2 Delivery O2 Flow Rate FiO2 08/28/17 08:53 100 Nasal Cannula 2.00 08/28/17 04:15 63 25 100 08/28/17 04:00 98.0 08/28/17 04:00 63 08/28/17 04:00 63 21 150/67 (94) 100 08/28/17 03:45 60 27 100 08/28/17 03:30 59 21 100 08/28/17 03:15 59 26 100 08/28/17 03:00 58 24 136/65 (88) 100 08/28/17 02:45 57 25 100 08/28/17 02:30 58 24 100 08/28/17 02:15 55 26 100 08/28/17 02:00 58 27 131/63 (85) 100 08/28/17 01:45 61 25 100 08/28/17 01:30 71 31 97 08/28/17 01:15 71 25 99 08/28/17 01:00 69 25 128/67 (87) 99 08/28/17 00:45 67 25 99 08/28/17 00:30 67 32 99 08/28/17 00:15 66 26 92 08/28/17 00:00 97.7 08/28/17 00:00 68 24 132/63 (86) 92 08/28/17 00:00 68 08/27/17 23:45 63 26 95 08/27/17 23:30 58 27 97 08/27/17 23:15 58 25 92 08/27/17 23:00 50 21 115/57 (76) 92 08/27/17 22:45 55 25 97 08/27/17 22:30 52 26 93 08/27/17 22:15 48 26 97 08/27/17 22:00 52 25 105/56 (72) 98 08/27/17 21:45 56 26 98 08/27/17 21:30 61 26 98 08/27/17 21:15 71 33 97 08/27/17 21:02 72 32 120/56 (77) 98 08/27/17 21:02 95 Nasal Cannula 2.00 08/27/17 21:00 70 31 97 08/27/17 20:45 80 34 97 08/27/17 20:30 82 33 96 08/27/17 20:15 83 31 97 08/27/17 20:00 98.2 81 22 123/72 (89) 97 08/27/17 20:00 81 08/27/17 20:00 81 27 123/72 (89) 97 08/27/17 19:45 80 40 97 08/27/17 19:30 79 29 98 08/27/17 19:15 79 34 98 08/27/17 16:00 74 08/27/17 16:00 97.9 74 30 125/62 (83) 97 08/27/17 12:00 98.5 75 29 128/60 (82) 99 08/27/17 12:00 75 I/O 08/27/17 08/27/17 08/27/17 08/28/17 08/28/17 08/28/17 07:00 15:00 23:00 07:00 15:00 23:00 Intake Total 240 ml 500 ml 360 ml Output Total 475 ml 650 ml 752 ml Balance -235 ml -150 ml -392 ml Intake Oral 240 ml 500 ml 360 ml Output Urine Total 475 ml 650 ml 750 ml Stool Total 2 ml # Bowel Movements 0 Result Diagram: 08/26/17 1016 08/26/17 1016 Objective Remarks GENERAL: Patient appear frail. curled up in bed. No acute distress. CARDIOVASCULAR: Normal rate and regular rhythm without murmurs, gallops, or rubs. RESPIRATORY: Breath sounds equal and clear to auscultation anteriorly. GASTROINTESTINAL: Abdomen soft, non-tender, non-distended. Normal active bowel sounds PSYCH: Appropriate mood and affect. Procedures 08/04 -placement of NG tube IR Date of Insertion: August 04, 2017 A/P Assessment and Plan 76-year-old female with: Chronic pain syndrome Status post removal of lumbar/sacral L5/S1 hardware 06/19 Chronic opioid use Monitor neuro status, avoid sedatives KAY drain removed 08/23 after discussion with [facility] neurosurgery, Dr. Wilson and plastics Dr. Dela Cruz (resident for Dr. Shirley). Lumbar CT showed surgical drain in posterior lumbar soft tissues, stranding and fluid ~2.7 cm just caudal to surgical drain without peripherally enhancing fluid collection. Patient originally had appointment with [facility] Neurosurgery 08/24 for followup and drain management. Now Dr. Wilson requests followup in Neurosurgery clinic sometime after antibiotics completed (daptomycin stop date planned for 09/09). Acute hypercapnic respiratory failure -resolved. Mild pulmonary hypertension COPD/asthma Continue with oxygen supplementation, keep sats >92% Ipratropium aerosols every 6 hours Albuterol allergy Status post steroids. A. fib RVR-resolved History of essential hypertension Chronic systolic congestive heart failure Chronic atrial fibrillation Monitor HR and BP keep MAP>65mmHg On Cardizem 60 mg Q6, Lopressor 50mg Q12, Hydralazine 50mg Q8 08/05 Echo- The left ventricular systolic function is moderately reduced with an EF 40-45%. Dyskinetic apical cap wall motion. The right ventricle is moderately dilated. Moderate mitral valve regurgitation. Aortic valve sclerosis is present. There is mild to moderate tricuspid valve regurgitation. There is estimated mild pulmonary hypertension present (range 40-50 mmHg). On Coumadin, dosing per pharmacy as per below. Acute renal insufficiency incentive chronic kidney disease stage IV Right renal stone/no hydronephrosis Monitor renal function, I/O's, electrolytes replacement per protocol Replace fam 08/21 Anemia of chronic disease Thrombocytopenia Leukocytosis MRSA Discitis Chronic warfarin use Funguria Sacral decubitus ulcers - wound care consulted.. Continue daptomycin. ID is following. CK 66 on 08/16. Daptomycin stop date 09/09. Followup with [facility] some time after that. Drain was removed 08/23. Coumadin per pharmacy. Medical records release obtained for medical records at [facility]/[place] and [facility] - The patient has a history of recent surgery at [facility] in [place]. She underwent removal of hardware from the lumbosacral spine L1-S1 because of exposed loosened hardware from prior surgery. She reportedly had surgery of the lumbosacral spine 10 years prior. The surgery at [facility] was on 06/27. Intraoperative culture reportedly had MRSA. She was put on antibiotics by infectious disease to complete on 07/29/2017. She was receiving intravenous vancomycin. The patient completed the course of the vancomycin. There is a notation in the medical record that she is ALLERGIC TO VANCOMYCIN. She is currently on daptomycin. She was seen by infectious disease physician at [facility] and reportedly will be in need of IV antibiotics for 6 weeks because of osteomyelitis of the lumbar spine. 08/06 UTI -Denise-fluconazole 200mg/d 08/04- Blood Cultures -NGTD -- SSI Prophylaxis: GI Prophylaxis Famotidine BID DVT Prophylaxis - warfarin for a fib will also provide DVT prophylaxis. -- SCDs. Palliative care is following Discharge Planning Patient needs placement. Case management aware. Patient's brother is currently hospitalized. She needs him for discharge planning. She is still considering whether or not she will return to her previous SNF. No other accepting facility at this time. Can transfer to floor Gina Prasad MD August 28, 2017 10:40
[2017-08-28] MEDS: ZINC SULFATE 220 MG CAP PO SCH (11:13)
[2017-08-28] MEDS: LACTULOSE SYRUP 20 GM/30 ML CUP PO SCH ×2 (11:13→21:50)
[2017-08-28] MEDS: METOPROLOL TARTRATE 50 MG TAB PO SCH ×2 (11:13→21:51)
[2017-08-28] MEDS: MUPIROCIN 2% OINT 1 APPLIC/GM SYR EACH NARE SCH ×2 (11:14→21:00)
[2017-08-28] MEDS: FAMOTIDINE 20 MG TAB PO SCH ×2 (11:14→21:50)
[2017-08-28] MEDS: SODIUM CHLORIDE 0.9% FLUSH 10 ML FLUSH IV FLUSH SCH ×5 (11:14→22:00)
[2017-08-28] MEDS: ASCORBIC ACID 500 MG TAB PO SCH (11:14)
[2017-08-28] MEDS: DOCUSATE SODIUM 50 MG/SENNA 8.6 MG TAB PO SCH ×2 (11:14→21:50)
[2017-08-28] MEDS: DAPTOmycin INJ 500 MG in SODIUM CHLORIDE 0.9% INJ 100 ML IV SCH (14:53)
[2017-08-28] MEDS ORDERED: WARFARIN SOD 1 MG TAB PO SCH (16:00)
[2017-08-29] VITALS: BP 106/60; PULSE 71; RESP 18; TEMP 97.4; O2SAT 99
[2017-08-29 04:00] VITALS: BP 138/74; PULSE 95; RESP 18; TEMP 97.4; O2SAT 95
[2017-08-29] MEDS: CHLORHEXIDINE GLUCONATE 2 % 1 PACK (2 CLOTHS) TOP SCH (04:00)
[2017-08-29] MEDS: INSULIN NovoLIN REGULAR SUPPLEMENTAL SCALE SQ SCH ×6 (04:00→20:00)
[2017-08-29] MEDS: DILTIAZEM HCL 60 MG TAB PO SCH ×4 (06:02→17:26)
[2017-08-29] MEDS: ARTIFICIAL TEARS OPTH SOLN 15 ML BTL EACH EYE SCH ×3 (06:02→22:00)
[2017-08-29] MEDS: hydrALAZINE HCL 50 MG TAB PO SCH ×3 (06:02→21:54)
[2017-08-29] MEDS: SODIUM CHLORIDE 0.9% FLUSH 10 ML FLUSH IV FLUSH SCH ×5 (06:04→22:00)
[2017-08-29 07:32] LABS: HEMATOCRIT 27.5 % (35.0-46.0); HEMOGLOBIN 9.1 GM/DL (11.6-15.3); MEAN CELL VOLUME 98.2 FL (80.0-100.0); MEAN CORPUSCULAR HEMOGLOBIN 32.6 PG (27.0-34.0); MEAN CORPUSCULAR HGB CONC 33.2 % (32.0-36.0); MEAN PLATELET VOLUME 9.1 FL (7.0-11.0); PLATELET COUNT 270 TH/MM3 (150-450); RED CELL DISTRIBUTION WIDTH 18.1 % (11.6-17.2); WHITE BLOOD COUNT 13.5 TH/MM3 (4.0-11.0)
[2017-08-29 08:00] VITALS: BP 134/63; PULSE 68; PULSE 84; RESP 18; TEMP 97.8; O2SAT 100
[2017-08-29] MEDS: ZINC SULFATE 220 MG CAP PO SCH (09:00)
[2017-08-29] MEDS: FAMOTIDINE 20 MG TAB PO SCH ×2 (09:17→21:54)
[2017-08-29] MEDS: DOCUSATE SODIUM 50 MG/SENNA 8.6 MG TAB PO SCH ×2 (09:17→21:54)
[2017-08-29] MEDS: METOPROLOL TARTRATE 50 MG TAB PO SCH ×2 (09:17→21:54)
[2017-08-29] MEDS: LACTULOSE SYRUP 20 GM/30 ML CUP PO SCH ×2 (09:17→21:54)
[2017-08-29] MEDS: ASCORBIC ACID 500 MG TAB PO SCH (09:17)
[2017-08-29] MEDS: MUPIROCIN 2% OINT 1 APPLIC/GM SYR EACH NARE SCH ×2 (09:17→21:55)
[2017-08-29 11:25] LABS: INTERNATIONAL NORMALIZED RATIO 1.1 RATIO; PROTHROMBIN TIME - PATIENT 11.1 SEC (9.8-11.6)
[2017-08-29 11:35] LABS: CALCIUM 8.3 MG/DL (8.5-10.1); CREATININE 0.72 MG/DL (0.50-1.00)
--- NOTE | 2017-08-29 11:52 | HHI.PR ---
Subjective Remarks Patient reports feeling cold otherwise no new complaints. Denies shortness of breath. Objective Vitals Vital Signs Date Time Temp Pulse Resp B/P (MAP) Pulse Ox O2 Delivery O2 Flow Rate FiO2 08/29/17 08:00 97.8 68 18 134/63 (86) 100 08/29/17 04:00 97.4 95 18 138/74 (95) 95 08/29/17 00:00 97.4 71 18 106/60 (75) 99 08/28/17 20:18 93 08/28/17 20:00 98.0 100 18 129/62 (84) 99 08/28/17 19:58 99 Nasal Cannula 2.00 08/28/17 18:23 97 08/28/17 16:16 98.7 86 18 126/60 (82) 98 08/28/17 12:00 98.0 91 16 126/63 (84) 99 08/28/17 12:00 91 I/O 08/28/17 08/28/17 08/28/17 08/29/17 08/29/17 08/29/17 07:00 15:00 23:00 07:00 15:00 23:00 Intake Total 360 ml Output Total 752 ml 525 ml 700 ml Balance -392 ml -525 ml -700 ml Intake Oral 360 ml Output Urine Total 750 ml 525 ml 700 ml Stool Total 2 ml Result Diagram: 08/29/17 0503 08/29/17 1047 Objective Remarks GENERAL: Patient appear frail. curled up in bed. No acute distress. CARDIOVASCULAR: Normal rate and regular rhythm without murmurs, gallops, or rubs. RESPIRATORY: Breath sounds equal and clear to auscultation anteriorly. GASTROINTESTINAL: Abdomen soft, non-tender, non-distended. Normal active bowel sounds PSYCH: Appropriate mood and affect. Procedures 08/04 -placement of NG tube IR Date of Insertion: August 04, 2017 A/P Assessment and Plan 76-year-old female with: Chronic pain syndrome Status post removal of lumbar/sacral L5/S1 hardware 06/19 Chronic opioid use Monitor neuro status, avoid sedatives KAY drain removed 08/23 after discussion with [facility] neurosurgery, Dr. Wilson and plastics Dr. Dela Cruz (resident for Dr. Shirley). Lumbar CT showed surgical drain in posterior lumbar soft tissues, stranding and fluid ~2.7 cm just caudal to surgical drain without peripherally enhancing fluid collection. Patient originally had appointment with [facility] Neurosurgery 08/24 for followup and drain management. Now Dr. Wilson requests followup in Neurosurgery clinic sometime after antibiotics completed (daptomycin stop date planned for 09/09). Acute hypercapnic respiratory failure -resolved. Mild pulmonary hypertension COPD/asthma Continue with oxygen supplementation, keep sats >92% Ipratropium aerosols every 6 hours Albuterol allergy Status post steroids. A. fib RVR-resolved History of essential hypertension Chronic systolic congestive heart failure Chronic atrial fibrillation Monitor HR and BP keep MAP>65mmHg On Cardizem 60 mg Q6, Lopressor 50mg Q12, Hydralazine 50mg Q8 08/05 Echo- The left ventricular systolic function is moderately reduced with an EF 40-45%. Dyskinetic apical cap wall motion. The right ventricle is moderately dilated. Moderate mitral valve regurgitation. Aortic valve sclerosis is present. There is mild to moderate tricuspid valve regurgitation. There is estimated mild pulmonary hypertension present (range 40-50 mmHg). On Coumadin, dosing per pharmacy as per below. Acute renal insufficiency incentive chronic kidney disease stage IV Right renal stone/no hydronephrosis Monitor renal function, I/O's, electrolytes replacement per protocol Replace fam 08/21 Anemia of chronic disease Thrombocytopenia Leukocytosis MRSA Discitis Chronic warfarin use Funguria Sacral decubitus ulcers - wound care consulted.. Continue daptomycin. ID is following. CK 66 on 08/16. Daptomycin stop date 09/09. Followup with [facility] some time after that. Drain was removed 08/23. Coumadin per pharmacy. Medical records release obtained for medical records at [facility]/[employer] [employer] and [facility] - The patient has a history of recent surgery at [facility] in [place]. She underwent removal of hardware from the lumbosacral spine L1-S1 because of exposed loosened hardware from prior surgery. She reportedly had surgery of the lumbosacral spine 10 years prior. The surgery at [facility] was on 06/27. Intraoperative culture reportedly had MRSA. She was put on antibiotics by infectious disease to complete on 07/29/2017. She was receiving intravenous vancomycin. The patient completed the course of the vancomycin. There is a notation in the medical record that she is ALLERGIC TO VANCOMYCIN. She is currently on daptomycin. She was seen by infectious disease physician at [facility] and reportedly will be in need of IV antibiotics for 6 weeks because of osteomyelitis of the lumbar spine. 08/06 UTI -Denise-fluconazole 200mg/d 08/04- Blood Cultures -NGTD -- SSI Prophylaxis: GI Prophylaxis Famotidine BID DVT Prophylaxis - warfarin for a fib will also provide DVT prophylaxis. -- SCDs. Palliative care is following Discharge Planning Patient needs placement. Case management following. Patient's brother is currently hospitalized here. She needs him for discharge planning. She is still considering whether or not she will return to her previous SNF. No other accepting facility at this time. Patient will need to follow-up at Gina Prasad MD August 29, 2017 11:52
[2017-08-29 12:00] VITALS: BP 109/63; PULSE 83; PULSE 87; RESP 18; TEMP 98.4; O2SAT 100
[2017-08-29] MEDS: DAPTOmycin INJ 500 MG in SODIUM CHLORIDE 0.9% INJ 100 ML IV SCH (13:06)
[2017-08-29 16:00] VITALS: BP 143/65; PULSE 100; PULSE 103; RESP 18; TEMP 97.7; O2SAT 98
[2017-08-29] MEDS ORDERED: WARFARIN SOD 1 MG TAB PO ONE (16:00)
[2017-08-29] MEDS: WARFARIN SOD 1 MG TAB PO SCH (16:36)
[2017-08-29 20:00] VITALS: BP 128/60; PULSE 78; RESP 18; TEMP 98.1; O2SAT 94
[2017-08-29] MEDS: CHLORHEXIDINE 0.12% (ORAL KIT) 15 ML CUP MT SCH (20:00)
[2017-08-29] MEDS: CYCLOBENZAPRINE HCL 10 MG TAB PO PRN (21:59)
[2017-08-30] VITALS (10 sets, daily range): BP systolic 111–145; BP diastolic 57–68; PULSE 74–95; RESP 18–24; TEMP 97.3–98.6; O2SAT 98–100
[2017-08-30] MEDS: DILTIAZEM HCL 60 MG TAB PO SCH ×4 (00:53→17:54)
[2017-08-30] MEDS: INSULIN NovoLIN REGULAR SUPPLEMENTAL SCALE SQ SCH ×6 (04:00→22:38)
[2017-08-30] MEDS: CHLORHEXIDINE GLUCONATE 2 % 1 PACK (2 CLOTHS) TOP SCH (04:00)
[2017-08-30] MEDS: SODIUM CHLORIDE 0.9% FLUSH 10 ML FLUSH IV FLUSH SCH ×5 (06:30→22:28)
[2017-08-30] MEDS: ARTIFICIAL TEARS OPTH SOLN 15 ML BTL EACH EYE SCH ×3 (06:30→22:28)
[2017-08-30] MEDS: hydrALAZINE HCL 50 MG TAB PO SCH ×3 (06:30→22:00)
[2017-08-30 07:20] LABS: INTERNATIONAL NORMALIZED RATIO 1.2 RATIO
[2017-08-30] MEDS: CHLORHEXIDINE 0.12% (ORAL KIT) 15 ML CUP MT SCH ×2 (08:00→20:00)
[2017-08-30] MEDS: LACTULOSE SYRUP 20 GM/30 ML CUP PO SCH ×2 (09:23→20:59)
[2017-08-30] MEDS: MUPIROCIN 2% OINT 1 APPLIC/GM SYR EACH NARE SCH ×2 (09:23→20:58)
[2017-08-30] MEDS: ASCORBIC ACID 500 MG TAB PO SCH (09:24)
[2017-08-30] MEDS: DOCUSATE SODIUM 50 MG/SENNA 8.6 MG TAB PO SCH ×2 (09:24→20:59)
[2017-08-30] MEDS: METOPROLOL TARTRATE 50 MG TAB PO SCH ×2 (09:24→20:59)
[2017-08-30] MEDS: FAMOTIDINE 20 MG TAB PO SCH ×2 (09:24→20:58)
[2017-08-30] MEDS: ZINC SULFATE 220 MG CAP PO SCH (09:24)
[2017-08-30] MEDS: DAPTOmycin INJ 500 MG in SODIUM CHLORIDE 0.9% INJ 100 ML IV SCH (11:04)
--- NOTE | 2017-08-30 11:20 | HHI.PR ---
Subjective Remarks Patient states she has not make a decision regarding rehab placement. No new complaints. No shortness of breath or chest pain. Objective Vitals Vital Signs Date Time Temp Pulse Resp B/P (MAP) Pulse Ox O2 Delivery O2 Flow Rate FiO2 08/30/17 08:00 97.8 80 24 115/57 (76) 99 08/30/17 04:00 98.0 85 18 136/64 (88) 99 08/30/17 00:00 97.3 92 18 145/68 (93) 100 08/29/17 20:00 98.1 78 18 128/60 (82) 94 08/29/17 16:00 97.7 100 18 143/65 (91) 98 08/29/17 16:00 103 08/29/17 12:00 98.4 83 18 109/63 (78) 100 08/29/17 12:00 87 I/O 08/29/17 08/29/17 08/29/17 08/30/17 08/30/17 08/30/17 07:00 15:00 23:00 07:00 15:00 23:00 Intake Total 100 ml Output Total 700 ml Balance -700 ml 100 ml IV Total 100 ml Output Urine Total 700 ml Result Diagram: 08/29/17 0503 08/29/17 1047 Objective Remarks GENERAL: Patient appear frail. curled up in bed. No acute distress. CARDIOVASCULAR: Normal rate and regular rhythm without murmurs, gallops, or rubs. RESPIRATORY: Breath sounds equal and clear to auscultation anteriorly. GASTROINTESTINAL: Abdomen soft, non-tender, non-distended. Normal active bowel sounds PSYCH: Appropriate mood and affect. Procedures 08/04 -placement of NG tube IR Date of Insertion: August 04, 2017 A/P Assessment and Plan 76-year-old female with: Chronic pain syndrome Status post removal of lumbar/sacral L5/S1 hardware 06/19 Chronic opioid use Monitor neuro status, avoid sedatives KAY drain removed 08/23 after discussion with [facility] neurosurgery, Dr. Wilson and plastics Dr. Dela Cruz (resident for Dr. Shirley). Lumbar CT showed surgical drain in posterior lumbar soft tissues, stranding and fluid ~2.7 cm just caudal to surgical drain without peripherally enhancing fluid collection. Patient originally had appointment with [facility] Neurosurgery 08/24 for followup and drain management. Now Dr. Wilson requests followup in Neurosurgery clinic sometime after antibiotics completed (daptomycin stop date planned for 09/09). Acute hypercapnic respiratory failure -resolved. Mild pulmonary hypertension COPD/asthma Continue with oxygen supplementation, keep sats >92% Ipratropium aerosols every 6 hours Albuterol allergy Status post steroids. A. fib RVR-resolved History of essential hypertension Chronic systolic congestive heart failure Chronic atrial fibrillation Monitor HR and BP keep MAP>65mmHg On Cardizem 60 mg Q6, Lopressor 50mg Q12, Hydralazine 50mg Q8 08/05 Echo- The left ventricular systolic function is moderately reduced with an EF 40-45%. Dyskinetic apical cap wall motion. The right ventricle is moderately dilated. Moderate mitral valve regurgitation. Aortic valve sclerosis is present. There is mild to moderate tricuspid valve regurgitation. There is estimated mild pulmonary hypertension present (range 40-50 mmHg). On Coumadin, dosing per pharmacy as per below. Acute renal insufficiency incentive chronic kidney disease stage IV Right renal stone/no hydronephrosis Monitor renal function, I/O's, electrolytes replacement per protocol Replace afm 08/21 Anemia of chronic disease Thrombocytopenia Leukocytosis MRSA Discitis Chronic warfarin use Funguria Sacral decubitus ulcers - wound care consulted.. Continue daptomycin. ID is following. CK 66 on 08/16. Daptomycin stop date 09/09. Followup with [facility] some time after that. Drain was removed 08/23. Coumadin per pharmacy. Medical records release obtained for medical records at [facility]/[place] and [facility] - The patient has a history of recent surgery at [facility] in [place]. She underwent removal of hardware from the lumbosacral spine L1-S1 because of exposed loosened hardware from prior surgery. She reportedly had surgery of the lumbosacral spine 10 years prior. The surgery at [facility] was on 06/27. Intraoperative culture reportedly had MRSA. She was put on antibiotics by infectious disease to complete on 07/29/2017. She was receiving intravenous vancomycin. The patient completed the course of the vancomycin. There is a notation in the medical record that she is ALLERGIC TO VANCOMYCIN. She is currently on daptomycin. She was seen by infectious disease physician at [facility] and reportedly will be in need of IV antibiotics for 6 weeks because of osteomyelitis of the lumbar spine. 08/06 UTI -Denise-fluconazole 200mg/d 08/04- Blood Cultures -NGTD -- SSI Prophylaxis: GI Prophylaxis Famotidine BID DVT Prophylaxis - warfarin for a fib will also provide DVT prophylaxis. -- SCDs. Palliative care is following Discharge Planning Patient needs placement. Discussed the need for progression of care to [facility] facility. She is still considering whether or not she will return to her previous SNF. No other accepting facility at this time. Patient will need to follow-up at after discharge. Gina Prasad MD August 30, 2017 11:20
--- NOTE | 2017-08-30 15:16 | RADRPT ---
EXAM DATE: 08/30/2017 2:47 PM EDT AGE/SEX: 76 years / Female INDICATIONS: Short of breath. CLINICAL DATA: This is the patient's initial encounter. Patient reports that signs and symptoms have been present for 1 day and indicates a pain score of Nonresponsive. MEDICAL/SURGICAL HISTORY: Cardiovascular disease. Gastroesophageal reflux disease. Appendectom y. Hysterectomy. COMPARISON: [facility] [place], CHEST SINGLE AP, 08/21/2017. . FINDINGS: Interval development of right lower lung zone airspace consolidation likely trace pleural effusion. C ardiomediastinal contours are stable. Redemonstration of chronic left shoulder dislocation and soft t issue calcifications. CONCLUSION: 1. Interval development of mild right lower lung zone airspace consolidation and likely trace pleura l effusion. Differential considerations include pneumonia and aspiration in the appropriate clinical setting. Electronically signed by: Librado Hernandez MD 08/30/2017 3:15 PM EDT
[2017-08-30] MEDS: WARFARIN SOD 1 MG TAB PO SCH (16:16)
[2017-08-30] MEDS: MORPHINE SULFATE ORAL SOLN 10 MG/0.5 ML SYRINGE PO PRN ×2 (16:17→21:00)
[2017-08-31] VITALS (14 sets, daily range): BP systolic 101–108; BP diastolic 53–58; PULSE 66–94; RESP 21–33; TEMP 97.6–98.5; O2SAT 100
[2017-08-31] MEDS: CHLORHEXIDINE GLUCONATE 2 % 1 PACK (2 CLOTHS) TOP SCH ×2 (04:00→23:39)
[2017-08-31 05:59] LABS: HEMATOCRIT 21.2 % (35.0-46.0); HEMOGLOBIN 7.1 GM/DL (11.6-15.3); MEAN CELL VOLUME 97.4 FL (80.0-100.0); MEAN CORPUSCULAR HEMOGLOBIN 32.4 PG (27.0-34.0); MEAN CORPUSCULAR HGB CONC 33.3 % (32.0-36.0); MEAN PLATELET VOLUME 8.1 FL (7.0-11.0); PLATELET COUNT 303 TH/MM3 (150-450); RED BLOOD COUNT 2.18 MIL/MM3 (4.00-5.30); RED CELL DISTRIBUTION WIDTH 17.7 % (11.6-17.2); WHITE BLOOD COUNT 7.8 TH/MM3 (4.0-11.0)
[2017-08-31 06:08] LABS: INTERNATIONAL NORMALIZED RATIO 1.1 RATIO; PROTHROMBIN TIME - PATIENT 11.5 SEC (9.8-11.6)
[2017-08-31 06:25] LABS: BICARBONATE 29.6 MEQ/L (21.0-32.0); CALCIUM 8.4 MG/DL (8.5-10.1); CREATININE 0.7 MG/DL (0.50-1.00)
[2017-08-31] MEDS: ARTIFICIAL TEARS OPTH SOLN 15 ML BTL EACH EYE SCH ×3 (06:26→20:25)
[2017-08-31] MEDS: SODIUM CHLORIDE 0.9% FLUSH 10 ML FLUSH IV FLUSH SCH ×5 (06:26→20:25)
[2017-08-31] MEDS: DILTIAZEM HCL 60 MG TAB PO SCH ×4 (06:36→18:07)
[2017-08-31] MEDS: hydrALAZINE HCL 50 MG TAB PO SCH ×3 (06:36→20:46)
[2017-08-31] MEDS: INSULIN NovoLIN REGULAR SUPPLEMENTAL SCALE SQ SCH ×4 (08:00→21:00)
[2017-08-31] MEDS: CHLORHEXIDINE 0.12% (ORAL KIT) 15 ML CUP MT SCH ×2 (08:56→20:24)
[2017-08-31] MEDS: LACTULOSE SYRUP 20 GM/30 ML CUP PO SCH ×2 (09:20→20:23)
[2017-08-31] MEDS: ZINC SULFATE 220 MG CAP PO SCH (09:20)
[2017-08-31] MEDS: ASCORBIC ACID 500 MG TAB PO SCH (09:21)
[2017-08-31] MEDS: MUPIROCIN 2% OINT 1 APPLIC/GM SYR EACH NARE SCH ×2 (09:22→20:23)
[2017-08-31] MEDS: DOCUSATE SODIUM 50 MG/SENNA 8.6 MG TAB PO SCH ×2 (09:22→20:17)
[2017-08-31] MEDS: FAMOTIDINE 20 MG TAB PO SCH ×2 (09:23→20:16)
[2017-08-31] MEDS: METOPROLOL TARTRATE 50 MG TAB PO SCH ×2 (09:23→20:18)
--- NOTE | 2017-08-31 11:02 | HHI.PR ---
Subjective Remarks Patient transferred to the ICU yesterday evening due to tachypnea and worsening respiratory distress. This morning she reports she is feeling better. Breathing more comfortably. Objective Vitals Vital Signs Date Time Temp Pulse Resp B/P (MAP) Pulse Ox O2 Delivery O2 Flow Rate FiO2 08/31/17 08:00 97.8 82 22 105/58 (74) 100 08/31/17 08:00 82 08/31/17 06:00 80 08/31/17 04:00 97.7 76 21 107/55 (72) 100 08/31/17 04:00 76 08/31/17 02:00 72 08/31/17 00:00 66 08/31/17 00:00 97.6 66 24 101/54 (70) 100 08/30/17 22:00 74 08/30/17 20:00 76 08/30/17 20:00 98.2 76 19 111/58 (75) 99 08/30/17 17:37 98 Nasal Cannula 2.00 08/30/17 17:20 35 08/30/17 16:00 95 08/30/17 16:00 98.6 89 23 113/57 (75) 98 08/30/17 12:00 77 08/30/17 12:00 97.7 85 23 124/59 (80) 98 I/O 08/30/17 08/30/17 08/30/17 08/31/17 08/31/17 08/31/17 07:00 15:00 23:00 07:00 15:00 23:00 Intake Total 500 ml 461 ml Output Total 575 ml Balance 500 ml -114 ml Intake Oral 500 ml 461 ml Output Urine Total 575 ml # Bowel Movements 0 Result Diagram: 08/31/17 0538 08/31/17 0538 Objective Remarks GENERAL: Patient appear frail. curled up in bed. No acute distress. CARDIOVASCULAR: Normal rate and regular rhythm without murmurs, gallops, or rubs. RESPIRATORY: Faint expiratory rhonchi. Otherwise breath sounds equal and clear to auscultation. GASTROINTESTINAL: Abdomen soft, non-tender, non-distended. Normal active bowel sounds PSYCH: Appropriate mood and affect. Procedures 08/04 -placement of NG tube IR Date of Insertion: August 04, 2017 A/P Assessment and Plan 76-year-old female with: Chronic pain syndrome Status post removal of lumbar/sacral L5/S1 hardware 06/19 Chronic opioid use Monitor neuro status, avoid sedatives KAY drain removed 08/23 after discussion with [facility] neurosurgery, Dr. Wilson and plastics Dr. Dela Cruz (resident for Dr. Shirley). Lumbar CT showed surgical drain in posterior lumbar soft tissues, stranding and fluid ~2.7 cm just caudal to surgical drain without peripherally enhancing fluid collection. Patient originally had appointment with [facility] Neurosurgery 08/24 for followup and drain management. Now Dr. Wilson requests followup in Neurosurgery clinic sometime after antibiotics completed (daptomycin stop date planned for 09/09). Acute hypercapnic respiratory failure. Intermittent tachypnea Mild pulmonary hypertension COPD/asthma Continue with oxygen supplementation, keep sats >92% Ipratropium aerosols every 6 hours Albuterol allergy Status post steroids. Monitor closely, patient has low reserve and at high risk for intubation. A. fib RVR-resolved History of essential hypertension Chronic systolic congestive heart failure Chronic atrial fibrillation Monitor HR and BP keep MAP>65mmHg On Cardizem 60 mg Q6, Lopressor 50mg Q12, Hydralazine 50mg Q8 08/05 Echo- The left ventricular systolic function is moderately reduced with an EF 40-45%. Dyskinetic apical cap wall motion. The right ventricle is moderately dilated. Moderate mitral valve regurgitation. Aortic valve sclerosis is present. There is mild to moderate tricuspid valve regurgitation. There is estimated mild pulmonary hypertension present (range 40-50 mmHg). On Coumadin, dosing per pharmacy as per below. INR not yet therapeutic. Acute renal insufficiency incentive chronic kidney disease stage IV Right renal stone/no hydronephrosis Monitor renal function, I/O's, electrolytes replacement per protocol Replace fam 08/21 Anemia of chronic disease Thrombocytopenia Leukocytosis MRSA Discitis Chronic warfarin use Funguria Sacral decubitus ulcers - wound care consulted.. Continue daptomycin. ID is following. CK 66 on 08/16. Daptomycin stop date 09/09. Followup with [facility] some time after that. Drain was removed 08/23. Coumadin per pharmacy. Medical records release obtained for medical records at [facility]/[place] and [facility] - The patient has a history of recent surgery at [facility] in [place]. She underwent removal of hardware from the lumbosacral spine L1-S1 because of exposed loosened hardware from prior surgery. She reportedly had surgery of the lumbosacral spine 10 years prior. The surgery at [facility] was on 06/27. Intraoperative culture reportedly had MRSA. She was put on antibiotics by infectious disease to complete on 07/29/2017. She was receiving intravenous vancomycin. The patient completed the course of the vancomycin. There is a notation in the medical record that she is ALLERGIC TO VANCOMYCIN. She is currently on daptomycin. She was seen by infectious disease physician at [facility] and reportedly will be in need of IV antibiotics for 6 weeks because of osteomyelitis of the lumbar spine. 08/06 UTI -Denise-fluconazole 200mg/d 08/04- Blood Cultures -NGTD -- SSI Prophylaxis: GI Prophylaxis Famotidine BID DVT Prophylaxis - warfarin for a fib will also provide DVT prophylaxis. -- SCDs. Palliative care is following Discharge Planning Patient needs placement. Discussed the need for progression of care to [facility] facility. She is still considering whether or not she will return to her previous SNF. No other accepting facility at this time. Patient will need to follow-up at after discharge. Gina Prasad MD August 31, 2017 11:02
[2017-08-31] MEDS: DAPTOmycin INJ 500 MG in SODIUM CHLORIDE 0.9% INJ 100 ML IV SCH (13:14)
[2017-08-31] MEDS ORDERED: WARFARIN SOD 1 MG TAB PO ONE (16:00)
[2017-09-01] VITALS (15 sets, daily range): BP systolic 115–140; BP diastolic 55–67; PULSE 56–100; RESP 25–45; TEMP 97.4–98.8; O2SAT 99–100
[2017-09-01] MEDS: DILTIAZEM HCL 60 MG TAB PO SCH ×5 (00:03→22:53)
[2017-09-01] MEDS: ARTIFICIAL TEARS OPTH SOLN 15 ML BTL EACH EYE SCH ×3 (05:27→20:39)
[2017-09-01] MEDS: hydrALAZINE HCL 50 MG TAB PO SCH ×3 (05:27→20:40)
[2017-09-01] MEDS: SODIUM CHLORIDE 0.9% FLUSH 10 ML FLUSH IV FLUSH SCH ×5 (05:27→20:39)
[2017-09-01 07:22] LABS: HEMATOCRIT 21.3 % (35.0-46.0); HEMOGLOBIN 7.1 GM/DL (11.6-15.3); MEAN CORPUSCULAR HEMOGLOBIN 32.5 PG (27.0-34.0); MEAN CORPUSCULAR HGB CONC 33.5 % (32.0-36.0); MEAN PLATELET VOLUME 8.6 FL (7.0-11.0); PLATELET COUNT 346 TH/MM3 (150-450); RED CELL DISTRIBUTION WIDTH 18.3 % (11.6-17.2); WHITE BLOOD COUNT 9.6 TH/MM3 (4.0-11.0)
[2017-09-01 07:31] LABS: INTERNATIONAL NORMALIZED RATIO 1.1 RATIO; PROTHROMBIN TIME - PATIENT 10.8 SEC (9.8-11.6)
[2017-09-01 07:41] LABS: BICARBONATE 28.7 MEQ/L (21.0-32.0); CALCIUM 8.5 MG/DL (8.5-10.1); CREATININE 0.65 MG/DL (0.50-1.00)
[2017-09-01] MEDS: CHLORHEXIDINE 0.12% (ORAL KIT) 15 ML CUP MT SCH ×2 (08:00→20:00)
[2017-09-01] MEDS: INSULIN NovoLIN REGULAR SUPPLEMENTAL SCALE SQ SCH ×4 (08:00→20:38)
[2017-09-01] MEDS: LACTULOSE SYRUP 20 GM/30 ML CUP PO SCH ×2 (08:18→20:37)
[2017-09-01] MEDS: MUPIROCIN 2% OINT 1 APPLIC/GM SYR EACH NARE SCH ×2 (08:18→20:37)
[2017-09-01] MEDS: DOCUSATE SODIUM 50 MG/SENNA 8.6 MG TAB PO SCH ×2 (08:18→20:38)
[2017-09-01] MEDS: FAMOTIDINE 20 MG TAB PO SCH ×2 (08:19→20:38)
[2017-09-01] MEDS: ZINC SULFATE 220 MG CAP PO SCH (08:19)
[2017-09-01] MEDS: ASCORBIC ACID 500 MG TAB PO SCH (08:19)
[2017-09-01] MEDS: METOPROLOL TARTRATE 50 MG TAB PO SCH ×2 (08:19→20:38)
[2017-09-01] MEDS: DAPTOmycin INJ 500 MG in SODIUM CHLORIDE 0.9% INJ 100 ML IV SCH (10:25)
--- NOTE | 2017-09-01 15:28 | HHI.PR ---
Subjective Remarks Resting comfortably in bed No event overnight Denied chest and or short of breath No fever or chills Objective Vitals Vital Signs Date Time Temp Pulse Resp B/P (MAP) Pulse Ox O2 Delivery O2 Flow Rate FiO2 09/01/17 14:04 85 09/01/17 12:01 78 09/01/17 12:00 98.2 78 29 116/56 (76) 100 09/01/17 10:00 75 09/01/17 08:04 100 2.00 09/01/17 08:00 97.4 84 25 140/63 (88) 100 09/01/17 08:00 87 09/01/17 06:00 85 09/01/17 04:00 88 09/01/17 04:00 98.0 88 27 116/57 (76) 100 09/01/17 02:00 87 09/01/17 00:00 100 09/01/17 00:00 98.8 100 36 115/55 (75) 100 08/31/17 22:00 94 08/31/17 20:03 100 Nasal Cannula 2.00 08/31/17 20:00 80 08/31/17 20:00 98.5 80 33 108/55 (72) 100 08/31/17 18:00 75 08/31/17 16:00 98.1 89 27 108/57 (74) 100 08/31/17 16:00 89 08/31/17 15:41 100 Nasal Cannula 2.00 I/O 08/31/17 08/31/17 08/31/17 09/01/17 09/01/17 09/01/17 07:00 15:00 23:00 07:00 15:00 23:00 Intake Total 461 ml 100 ml 240 ml 240 ml 100 ml Output Total 575 ml 600 ml 450 ml Balance -114 ml 100 ml -360 ml -210 ml 100 ml Intake Oral 461 ml 240 ml 240 ml IV Total 100 ml 100 ml Output Urine Total 575 ml 600 ml 450 ml # Bowel Movements 0 1 0 Result Diagram: 09/01/1762909/01/17629 Objective Remarks GENERAL: This is a well-nourished, well-developed patient, in no apparent distress. CARDIOVASCULAR: RRR, no gallops, or rubs. RESPIRATORY: Fair air entry bilaterally. No W, R, or R GASTROINTESTINAL: Abdomen soft, non-tender, nondistended. Positive bowel sounds MUSCULOSKELETAL: Extremities without clubbing, cyanosis, or edema. Pedal pulses appreciated NEUROLOGICAL: Awake and alert. Moves all extremity. Normal speech.no focal neurological deficit Procedures 08/04 -placement of NG tube IR Date of Insertion: August 04, 2017 A/P Assessment and Plan 76-year-old female with: 09/01: Discussed with pharmacist and with nurse regarding patient on low-dose Coumadin, and was told patient has very high sensitivity to Coumadin, pharmacy will continue managing a little more aggressive, INR is 1.1 today, continue current care, hemoglobin 7.1 today, continue on daptomycin, continue efforts for placement A/P: Chronic pain syndrome Status post removal of lumbar/sacral L5/S1 hardware 06/19 Chronic opioid use Monitor neuro status, avoid sedatives KAY drain removed 08/23 after discussion with [facility] neurosurgery, Dr. Wilson and plastics Dr. Dela Cruz (resident for Dr. Shirley). Lumbar CT showed surgical drain in posterior lumbar soft tissues, stranding and fluid ~2.7 cm just caudal to surgical drain without peripherally enhancing fluid collection. Patient originally had appointment with [facility] Neurosurgery 08/24 for followup and drain management. Now Dr. Wilson requests followup in Neurosurgery clinic sometime after antibiotics completed (daptomycin stop date planned for 09/09). Acute hypercapnic respiratory failure. Intermittent tachypnea Mild pulmonary hypertension COPD/asthma Continue with oxygen supplementation, keep sats >92% Ipratropium aerosols every 6 hours Albuterol allergy Status post steroids. Monitor closely, patient has low reserve and at high risk for intubation. A. fib RVR-resolved History of essential hypertension Chronic systolic congestive heart failure Chronic atrial fibrillation Monitor HR and BP keep MAP>65mmHg On Cardizem 60 mg Q6, Lopressor 50mg Q12, Hydralazine 50mg Q8 08/05 Echo- The left ventricular systolic function is moderately reduced with an EF 40-45%. Dyskinetic apical cap wall motion. The right ventricle is moderately dilated. Moderate mitral valve regurgitation. Aortic valve sclerosis is present. There is mild to moderate tricuspid valve regurgitation. There is estimated mild pulmonary hypertension present (range 40-50 mmHg). On Coumadin, dosing per pharmacy as per below. INR not yet therapeutic. Acute renal insufficiency incentive chronic kidney disease stage IV Right renal stone/no hydronephrosis Monitor renal function, I/O's, electrolytes replacement per protocol Replace cristel 08/21 Anemia of chronic disease Thrombocytopenia and thrombocytosis, currently platelet within normal limits Leukocytosis MRSA Discitis Chronic warfarin use Funguria Sacral decubitus ulcers - wound care consulted.. Continue daptomycin. ID is following. CK 66 on 08/16. Daptomycin stop date 09/09. Followup with [facility] some time after that. Drain was removed 08/23. Coumadin per pharmacy. Medical records release obtained for medical records at [facility]/[place] and [facility] - The patient has a history of recent surgery at [facility] in [place]. She underwent removal of hardware from the lumbosacral spine L1-S1 because of exposed loosened hardware from prior surgery. She reportedly had surgery of the lumbosacral spine 10 years prior. The surgery at [facility] was on 06/27. Intraoperative culture reportedly had MRSA. She was put on antibiotics by infectious disease to complete on 07/29/2017. She was receiving intravenous vancomycin. The patient completed the course of the vancomycin. There is a notation in the medical record that she is ALLERGIC TO VANCOMYCIN. She is currently on daptomycin. She was seen by infectious disease physician at [facility] and reportedly will be in need of IV antibiotics for 6 weeks because of osteomyelitis of the lumbar spine. 08/06 UTI -Denise-fluconazole 200mg/d 08/04- Blood Cultures -NGTD -- SSI Prophylaxis: GI Prophylaxis Famotidine BID DVT Prophylaxis - warfarin for a fib will also provide DVT prophylaxis. -- SCDs. Palliative care is following Discharge Planning Patient needs placement. Discussed the need for progression of care to shelter facility. She is still considering whether or not she will return to her previous SNF. No other accepting facility at this time. Patient will need to follow-up at after discharge. Yael Stanton MD September 01, 2017 15:28
[2017-09-01] MEDS ORDERED: WARFARIN SOD 1 MG TAB PO ONE (16:00)
[2017-09-01] MEDS: CHLORHEXIDINE GLUCONATE 2 % 1 PACK (2 CLOTHS) TOP SCH (20:42)
[2017-09-01] MEDS: MORPHINE SULFATE ORAL SOLN 10 MG/0.5 ML SYRINGE PO PRN (22:48)
[2017-09-02] VITALS (14 sets, daily range): BP systolic 111–143; BP diastolic 53–64; PULSE 55–85; RESP 15–34; TEMP 97.6–98.4; O2SAT 94–100
[2017-09-02 05:58] LABS: INTERNATIONAL NORMALIZED RATIO 1.1 RATIO; PROTHROMBIN TIME - PATIENT 11.4 SEC (9.8-11.6)
[2017-09-02] MEDS: DILTIAZEM HCL 60 MG TAB PO SCH ×3 (06:00→17:00)
[2017-09-02] MEDS: hydrALAZINE HCL 50 MG TAB PO SCH ×3 (06:00→20:49)
[2017-09-02] MEDS: ARTIFICIAL TEARS OPTH SOLN 15 ML BTL EACH EYE SCH ×3 (06:00→20:50)
[2017-09-02] MEDS: SODIUM CHLORIDE 0.9% FLUSH 10 ML FLUSH IV FLUSH SCH ×5 (06:00→20:50)
[2017-09-02 06:09] LABS: AUTOMATED NEUTROPHIL # 6.6 TH/MM3 (1.8-7.7); BASOPHIL # 0.1 TH/MM3 (0-0.2); BASOPHIL % 0.8 % (0.0-2.0); EOSINOPHIL # 0.1 TH/MM3 (0-0.4); EOSINOPHIL % 1.7 % (0.0-4.0); LYMPH % 6.3 % (9.0-44.0); LYMPHOCYTE # 0.5 TH/MM3 (1.0-4.8); MEAN CELL VOLUME 97.5 FL (80.0-100.0); MEAN CORPUSCULAR HEMOGLOBIN 32.9 PG (27.0-34.0); MEAN CORPUSCULAR HGB CONC 33.7 % (32.0-36.0); MEAN PLATELET VOLUME 8.7 FL (7.0-11.0); MONO % 11.5 % (0.0-8.0); NEUT % 79.7 % (16.0-70.0); PLATELET COUNT 302 TH/MM3 (150-450); RED BLOOD COUNT 1.89 MIL/MM3 (4.00-5.30); RED CELL DISTRIBUTION WIDTH 17.9 % (11.6-17.2); WHITE BLOOD COUNT 8.3 TH/MM3 (4.0-11.0)
[2017-09-02 06:14] LABS: HEMATOCRIT 18.5 % (35.0-46.0); HEMOGLOBIN 6.2 GM/DL (11.6-15.3)
[2017-09-02] MEDS ORDERED: SODIUM CHLOR 0.9% 250 ML INJ 250 ML IV ONE (06:30)
[2017-09-02] MEDS: INSULIN NovoLIN REGULAR SUPPLEMENTAL SCALE SQ SCH ×4 (08:00→21:00)
[2017-09-02] MEDS: CHLORHEXIDINE 0.12% (ORAL KIT) 15 ML CUP MT SCH ×2 (08:00→20:00)
[2017-09-02] MEDS: DOCUSATE SODIUM 50 MG/SENNA 8.6 MG TAB PO SCH ×2 (09:00→20:49)
[2017-09-02] MEDS: MUPIROCIN 2% OINT 1 APPLIC/GM SYR EACH NARE SCH ×2 (09:00→20:51)
[2017-09-02] MEDS: ASCORBIC ACID 500 MG TAB PO SCH (09:16)
[2017-09-02] MEDS: LACTULOSE SYRUP 20 GM/30 ML CUP PO SCH ×2 (09:16→20:49)
[2017-09-02] MEDS: ZINC SULFATE 220 MG CAP PO SCH (09:16)
[2017-09-02] MEDS: FAMOTIDINE 20 MG TAB PO SCH ×2 (09:17→20:49)
[2017-09-02] MEDS: METOPROLOL TARTRATE 50 MG TAB PO SCH ×2 (09:17→20:50)
[2017-09-02] MEDS: DAPTOmycin INJ 500 MG in SODIUM CHLORIDE 0.9% INJ 100 ML IV SCH (11:04)
[2017-09-02] MEDS: MORPHINE SULFATE ORAL SOLN 10 MG/0.5 ML SYRINGE PO PRN (12:17)
--- NOTE | 2017-09-02 16:01 | HHI.PR ---
Subjective Remarks Resting in bed No acute complain INR still 1.1 Objective Vitals Vital Signs Date Time Temp Pulse Resp B/P (MAP) Pulse Ox O2 Delivery O2 Flow Rate FiO2 09/02/17 13:41 98.2 65 34 114/55 100 09/02/17 10:00 57 09/02/17 08:00 71 09/02/17 06:00 73 09/02/17 04:00 97.6 55 24 120/56 (77) 94 09/02/17 04:00 55 09/02/17 02:00 62 09/02/17 00:00 69 09/02/17 00:00 98.4 64 15 111/53 (72) 100 09/01/17 23:48 16 09/01/17 22:00 56 09/01/17 20:07 99 Nasal Cannula 2.00 09/01/17 20:00 86 09/01/17 20:00 98.4 76 30 122/67 (85) 100 09/01/17 18:05 82 I/O 09/01/17 09/01/17 09/01/17 09/02/17 09/02/17 09/02/17 07:00 15:00 23:00 07:00 15:00 23:00 Intake Total 240 ml 100 ml 687 ml 240 ml Output Total 450 ml 400 ml 450 ml Balance -210 ml 100 ml 287 ml -210 ml Intake Oral 240 ml 687 ml 240 ml IV Total 100 ml Output Urine Total 450 ml 400 ml 450 ml Stool Total 0 ml # Bowel Movements 0 0 Result Diagram: 09/02/17 0507 09/01/17 0630 Objective Remarks GENERAL: This is a well-nourished, well-developed patient, in no apparent distress. CARDIOVASCULAR: RRR, no gallops, or rubs. RESPIRATORY: Fair air entry bilaterally. No W, R, or R GASTROINTESTINAL: Abdomen soft, non-tender, nondistended. Positive bowel sounds MUSCULOSKELETAL: Extremities without clubbing, cyanosis, or edema. Pedal pulses appreciated NEUROLOGICAL: Awake and alert. Moves all extremity. Normal speech.no focal neurological deficit Procedures 08/04 -placement of NG tube IR Date of Insertion: August 04, 2017 A/P Assessment and Plan 76-year-old female with: 09/01: Discussed with pharmacist and with nurse regarding patient on low-dose Coumadin, and was told patient has very high sensitivity to Coumadin, pharmacy will continue managing a little more aggressive, INR is 1.1 today, continue current care, hemoglobin 7.1 today, continue on daptomycin, continue efforts for placement 09/02: No new complaint, continue Coumadin, continue antibiotic, follow and monitor improvement A/P: Chronic pain syndrome Status post removal of lumbar/sacral L5/S1 hardware 06/19 Chronic opioid use Monitor neuro status, avoid sedatives KAY drain removed 08/23 after discussion with [facility] neurosurgery, Dr. Wilson and plastics Dr. Dela Cruz (resident for Dr. Shirley). Lumbar CT showed surgical drain in posterior lumbar soft tissues, stranding and fluid ~2.7 cm just caudal to surgical drain without peripherally enhancing fluid collection. Patient originally had appointment with [facility] Neurosurgery 08/24 for followup and drain management. Now Dr. Wilson requests followup in Neurosurgery clinic sometime after antibiotics completed (daptomycin stop date planned for 09/09). Acute hypercapnic respiratory failure. Intermittent tachypnea Mild pulmonary hypertension COPD/asthma Continue with oxygen supplementation, keep sats >92% Ipratropium aerosols every 6 hours Albuterol allergy Status post steroids. Monitor closely, patient has low reserve and at high risk for intubation. A. fib RVR-resolved History of essential hypertension Chronic systolic congestive heart failure Chronic atrial fibrillation Monitor HR and BP keep MAP>65mmHg On Cardizem 60 mg Q6, Lopressor 50mg Q12, Hydralazine 50mg Q8 08/05 Echo- The left ventricular systolic function is moderately reduced with an EF 40-45%. Dyskinetic apical cap wall motion. The right ventricle is moderately dilated. Moderate mitral valve regurgitation. Aortic valve sclerosis is present. There is mild to moderate tricuspid valve regurgitation. There is estimated mild pulmonary hypertension present (range 40-50 mmHg). On Coumadin, dosing per pharmacy as per below. INR not yet therapeutic. Acute renal insufficiency incentive chronic kidney disease stage IV Right renal stone/no hydronephrosis Monitor renal function, I/O's, electrolytes replacement per protocol Replace fam 08/21 Anemia of chronic disease Thrombocytopenia and thrombocytosis, currently platelet within normal limits Leukocytosis MRSA Discitis Chronic warfarin use Funguria Sacral decubitus ulcers - wound care consulted.. Continue daptomycin. ID is following. CK 66 on 08/16. Daptomycin stop date 6/8. Followup with [facility] some time after that. Drain was removed 08/23. Coumadin per pharmacy. Medical records release obtained for medical records at [facility]/[place] and [facility] - The patient has a history of recent surgery at [facility] in [place]. She underwent removal of hardware from the lumbosacral spine L1-S1 because of exposed loosened hardware from prior surgery. She reportedly had surgery of the lumbosacral spine 10 years prior. The surgery at [facility] was on 06/27. Intraoperative culture reportedly had MRSA. She was put on antibiotics by infectious disease to complete on 07/29/2017. She was receiving intravenous vancomycin. The patient completed the course of the vancomycin. There is a notation in the medical record that she is ALLERGIC TO VANCOMYCIN. She is currently on daptomycin. She was seen by infectious disease physician at [facility] and reportedly will be in need of IV antibiotics for 6 weeks because of osteomyelitis of the lumbar spine. 08/06 UTI -Denise-fluconazole 200mg/d 08/04- Blood Cultures -NGTD -- SSI Prophylaxis: GI Prophylaxis Famotidine BID DVT Prophylaxis - warfarin for a fib will also provide DVT prophylaxis. -- SCDs. Palliative care is following Discharge Planning Patient needs placement. Discussed the need for progression of care to [facility] facility. She is still considering whether or not she will return to her previous SNF. No other accepting facility at this time. Patient will need to follow-up at after discharge. Yael Stanton MD Sep 02, 2017 16:01
[2017-09-03] VITALS (15 sets, daily range): BP systolic 108–152; BP diastolic 56–60; PULSE 61–85; RESP 24–34; TEMP 98–98.7; O2SAT 96–100
[2017-09-03] MEDS: DILTIAZEM HCL 60 MG TAB PO SCH ×4 (00:19→18:29)
[2017-09-03] MEDS: CHLORHEXIDINE GLUCONATE 2 % 1 PACK (2 CLOTHS) TOP SCH (03:50)
[2017-09-03 05:44] LABS: INTERNATIONAL NORMALIZED RATIO 1.3 RATIO; PROTHROMBIN TIME - PATIENT 12.7 SEC (9.8-11.6)
[2017-09-03] MEDS: SODIUM CHLORIDE 0.9% FLUSH 10 ML FLUSH IV FLUSH SCH ×5 (06:00→22:00)
[2017-09-03] MEDS: ARTIFICIAL TEARS OPTH SOLN 15 ML BTL EACH EYE SCH ×3 (06:00→22:00)
[2017-09-03] MEDS: hydrALAZINE HCL 50 MG TAB PO SCH ×3 (06:13→22:00)
[2017-09-03] MEDS: INSULIN NovoLIN REGULAR SUPPLEMENTAL SCALE SQ SCH ×4 (08:00→20:36)
[2017-09-03] MEDS: CHLORHEXIDINE 0.12% (ORAL KIT) 15 ML CUP MT SCH ×2 (08:00→20:00)
[2017-09-03] MEDS: MUPIROCIN 2% OINT 1 APPLIC/GM SYR EACH NARE SCH ×2 (09:00→20:06)
[2017-09-03] MEDS: FAMOTIDINE 20 MG TAB PO SCH ×2 (09:03→20:07)
[2017-09-03] MEDS: ASCORBIC ACID 500 MG TAB PO SCH (09:03)
[2017-09-03] MEDS: ZINC SULFATE 220 MG CAP PO SCH (09:03)
[2017-09-03] MEDS: DOCUSATE SODIUM 50 MG/SENNA 8.6 MG TAB PO SCH ×2 (09:03→20:07)
[2017-09-03] MEDS: LACTULOSE SYRUP 20 GM/30 ML CUP PO SCH ×2 (09:03→20:07)
[2017-09-03] MEDS: METOPROLOL TARTRATE 50 MG TAB PO SCH ×2 (09:03→20:07)
[2017-09-03] MEDS: DAPTOmycin INJ 500 MG in SODIUM CHLORIDE 0.9% INJ 100 ML IV SCH (11:35)
[2017-09-03] MEDS: MORPHINE SULFATE ORAL SOLN 10 MG/0.5 ML SYRINGE PO PRN ×2 (12:35→22:39)
--- NOTE | 2017-09-03 15:15 | HHI.PR ---
Subjective Remarks Patient was sleeping woke up to voice She is pleasant answering simple question She denied chest pain or short of breath I discussed with the nurse, hemoglobin 6.2 after giving 1 unit of packed red blood cells yesterday we need to repeat H&H today Objective Vitals Vital Signs Date Time Temp Pulse Resp B/P (MAP) Pulse Ox O2 Delivery O2 Flow Rate FiO2 09/03/17 10:00 61 09/03/17 09:00 100 Nasal Cannula 2.00 09/03/17 08:00 98.7 80 26 124/58 (80) 100 09/03/17 08:00 80 09/03/17 07:00 100 Nasal Cannula 2.00 09/03/17 06:00 85 09/03/17 04:00 98.5 72 24 125/58 (80) 100 09/03/17 04:00 70 09/03/17 02:00 70 09/03/17 00:00 98.2 77 24 110/56 (74) 100 09/03/17 00:00 77 09/02/17 22:00 75 09/02/17 20:00 94 Nasal Cannula 2.00 09/02/17 20:00 74 09/02/17 20:00 98.2 74 24 125/59 (81) 100 09/02/17 19:00 100 Nasal Cannula 2.00 09/02/17 18:00 67 09/02/17 16:00 66 09/02/17 16:00 98.0 66 34 116/58 (77) 100 I/O 09/02/17 09/02/17 09/02/17 09/03/17 09/03/17 09/03/17 07:00 15:00 23:00 07:00 15:00 23:00 Intake Total 240 ml 1400 ml 960 ml Output Total 450 ml 425 ml 650 ml Balance -210 ml 1400 ml 535 ml -650 ml Intake Oral 240 ml 960 ml Packed Cells 400 ml Blood Product IV Normal Saline Flush 1000 ml Output Urine Total 450 ml 425 ml 650 ml Stool Total 0 ml # Bowel Movements 0 Result Diagram: 09/02/17 0507 09/01/17 0630 Objective Remarks GENERAL: This is a well-nourished, well-developed patient, in no apparent distress. CARDIOVASCULAR: RRR, no gallops, or rubs. RESPIRATORY: Fair air entry bilaterally. No W, R, or R GASTROINTESTINAL: Abdomen soft, non-tender, nondistended. Positive bowel sounds MUSCULOSKELETAL: Extremities without clubbing, cyanosis, or edema. Pedal pulses appreciated NEUROLOGICAL: Awake and alert. Moves all extremity. Normal speech.no focal neurological deficit Procedures 08/04 -placement of NG tube IR Date of Insertion: August 04, 2017 A/P Assessment and Plan 76-year-old female with: 09/01: Discussed with pharmacist and with nurse regarding patient on low-dose Coumadin, and was told patient has very high sensitivity to Coumadin, pharmacy will continue managing a little more aggressive, INR is 1.1 today, continue current care, hemoglobin 7.1 today, continue on daptomycin, continue efforts for placement 09/02: No new complaint, continue Coumadin, continue antibiotic, follow and monitor improvement 09/03: Hemoglobin yesterday 6.2 patient had 1 unit of packed red blood cells will need to repeat H&H now, transfer to floor if hemoglobin stable, Coumadin mngmt, INR 1.3 today A/P: Chronic pain syndrome Status post removal of lumbar/sacral L5/S1 hardware 06/19 hx OM lumbar spine Chronic opioid use Monitor neuro status, avoid sedatives KAY drain removed 08/23 after discussion with [facility] neurosurgery, Dr. Wilson and plastics Dr. Dela Cruz (resident for Dr. Shirley). Lumbar CT showed surgical drain in posterior lumbar soft tissues, stranding and fluid ~2.7 cm just caudal to surgical drain without peripherally enhancing fluid collection. Patient originally had appointment with [facility] Neurosurgery 08/24 for followup and drain management. Now Dr. Wilson requests followup in Neurosurgery clinic sometime after antibiotics completed (daptomycin stop date planned for 09/09). Acute hypercapnic respiratory failure. Intermittent tachypnea Mild pulmonary hypertension COPD/asthma Continue with oxygen supplementation, keep sats >92% Ipratropium aerosols every 6 hours Albuterol allergy Status post steroids. Monitor closely, patient has low reserve and at high risk for intubation. A. fib RVR-resolved History of essential hypertension Chronic systolic congestive heart failure Chronic atrial fibrillation Monitor HR and BP keep MAP>65mmHg On Cardizem 60 mg Q6, Lopressor 50mg Q12, Hydralazine 50mg Q8 08/05 Echo- The left ventricular systolic function is moderately reduced with an EF 40-45%. Dyskinetic apical cap wall motion. The right ventricle is moderately dilated. Moderate mitral valve regurgitation. Aortic valve sclerosis is present. There is mild to moderate tricuspid valve regurgitation. There is estimated mild pulmonary hypertension present (range 40-50 mmHg). On Coumadin, dosing per pharmacy as per below. INR not yet therapeutic. Acute renal insufficiency incentive chronic kidney disease stage IV Right renal stone/no hydronephrosis Monitor renal function, I/O's, electrolytes replacement per protocol Replace fam 08/21 Anemia of chronic disease Thrombocytopenia and thrombocytosis, currently platelet within normal limits Leukocytosis MRSA Discitis Chronic warfarin use Funguria Sacral decubitus ulcers - wound care consulted.. Continue daptomycin. ID is following. CK 66 on 08/16. Daptomycin stop date 09/09. Followup with [facility] some time after that. Drain was removed 08/23. Coumadin per pharmacy. Medical records release obtained for medical records at [facility]/[place] and [facility] - The patient has a history of recent surgery at [facility] in [place]. She underwent removal of hardware from the lumbosacral spine L1-S1 because of exposed loosened hardware from prior surgery. She reportedly had surgery of the lumbosacral spine 10 years prior. The surgery at [facility] was on 06/27. Intraoperative culture reportedly had MRSA. She was put on antibiotics by infectious disease to complete on 07/29/2017. She was receiving intravenous vancomycin. The patient completed the course of the vancomycin. There is a notation in the medical record that she is ALLERGIC TO VANCOMYCIN. She is currently on daptomycin. She was seen by infectious disease physician at [facility] and reportedly will be in need of IV antibiotics for 6 weeks because of osteomyelitis of the lumbar spine. 08/06 UTI -Denise-fluconazole 200mg/d 08/04- Blood Cultures -NGTD -- SSI Prophylaxis: GI Prophylaxis Famotidine BID DVT Prophylaxis - warfarin for a fib will also provide DVT prophylaxis. -- SCDs. Palliative care is following Discharge Planning Patient needs placement. Discussed the need for progression of care to [facility] facility. She is still considering whether or not she will return to her previous SNF. No other accepting facility at this time. Patient will need to follow-up at after discharge. Yael Stanton MD Sep 03, 2017 15:15
[2017-09-03 15:32] LABS: HEMATOCRIT 23.2 % (35.0-46.0); HEMOGLOBIN 7.9 GM/DL (11.6-15.3)
[2017-09-03] MEDS ORDERED: WARFARIN SOD 1 MG TAB PO ONE (16:15)
[2017-09-04] VITALS (12 sets, daily range): BP systolic 117–159; BP diastolic 59–69; PULSE 60–84; RESP 24–34; TEMP 98–98.3; O2SAT 97–100
[2017-09-04] MEDS: CHLORHEXIDINE GLUCONATE 2 % 1 PACK (2 CLOTHS) TOP SCH (04:00)
[2017-09-04] MEDS: ARTIFICIAL TEARS OPTH SOLN 15 ML BTL EACH EYE SCH ×3 (05:49→22:00)
[2017-09-04] MEDS: SODIUM CHLORIDE 0.9% FLUSH 10 ML FLUSH IV FLUSH SCH ×5 (05:49→22:00)
[2017-09-04] MEDS: DILTIAZEM HCL 60 MG TAB PO SCH ×5 (05:49→22:44)
[2017-09-04] MEDS: hydrALAZINE HCL 50 MG TAB PO SCH ×3 (05:49→22:44)
[2017-09-04 06:22] LABS: HEMATOCRIT 31.1 % (35.0-46.0); HEMOGLOBIN 10.2 GM/DL (11.6-15.3)
[2017-09-04 07:36] LABS: INTERNATIONAL NORMALIZED RATIO 1.2 RATIO; PROTHROMBIN TIME - PATIENT 12.3 SEC (9.8-11.6)
[2017-09-04] MEDS: DOCUSATE SODIUM 50 MG/SENNA 8.6 MG TAB PO SCH ×2 (07:39→19:50)
[2017-09-04] MEDS: ASCORBIC ACID 500 MG TAB PO SCH (07:40)
[2017-09-04] MEDS: MUPIROCIN 2% OINT 1 APPLIC/GM SYR EACH NARE SCH ×2 (07:40→19:51)
[2017-09-04] MEDS: LACTULOSE SYRUP 20 GM/30 ML CUP PO SCH ×2 (07:40→19:51)
[2017-09-04] MEDS: CHLORHEXIDINE 0.12% (ORAL KIT) 15 ML CUP MT SCH ×2 (07:40→19:51)
[2017-09-04] MEDS: METOPROLOL TARTRATE 50 MG TAB PO SCH ×2 (07:40→19:51)
[2017-09-04] MEDS: ZINC SULFATE 220 MG CAP PO SCH (07:40)
[2017-09-04] MEDS: FAMOTIDINE 20 MG TAB PO SCH ×2 (07:40→19:51)
[2017-09-04] MEDS: INSULIN NovoLIN REGULAR SUPPLEMENTAL SCALE SQ SCH ×4 (08:00→21:00)
[2017-09-04] MEDS: DAPTOmycin INJ 500 MG in SODIUM CHLORIDE 0.9% INJ 100 ML IV SCH (12:14)
[2017-09-04] MEDS: MORPHINE SULFATE ORAL SOLN 10 MG/0.5 ML SYRINGE PO PRN ×2 (12:38→21:34)
--- NOTE | 2017-09-04 13:44 | HHI.PR ---
Subjective Remarks "I am doing about the same " Discussed with the nurse patient is having tachypnea but seems to be her baseline possibly due to her body position habitus Hemoglobin is much better today increased from 6.2-7.9-10.2 today after 1 units PRBC transfusion yesterday Objective Vitals Vital Signs Date Time Temp Pulse Resp B/P (MAP) Pulse Ox O2 Delivery O2 Flow Rate FiO2 09/04/17 12:00 72 09/04/17 12:00 98.0 72 33 156/64 (94) 99 09/04/17 10:00 60 09/04/17 08:48 97 Nasal Cannula 3.00 09/04/17 08:00 98.1 76 26 159/69 (99) 100 09/04/17 08:00 76 09/04/17 07:00 100 Nasal Cannula 2.00 09/04/17 06:00 72 09/04/17 04:00 98.3 63 24 125/60 (81) 100 09/04/17 04:00 77 09/04/17 02:00 68 09/04/17 00:50 98.0 72 32 141/69 98 09/04/17 00:00 98.0 72 32 141/69 (93) 100 09/04/17 00:00 72 09/03/17 23:39 28 09/03/17 22:00 65 09/03/17 21:36 98.0 79 28 125/60 100 09/03/17 20:41 96 Nasal Cannula 2.00 09/03/17 20:00 98.0 76 34 131/59 (83) 100 09/03/17 20:00 70 09/03/17 19:00 100 Nasal Cannula 2.00 09/03/17 18:00 74 09/03/17 16:00 98.5 69 25 152/58 (89) 100 09/03/17 16:00 69 09/03/17 14:00 73 I/O 09/03/17 09/03/17 09/03/17 09/04/17 09/04/17 09/04/17 07:00 15:00 23:00 07:00 15:00 23:00 Intake Total 100 ml 1080 ml 670 ml Output Total 650 ml 500 ml 500 ml Balance -650 ml 100 ml 580 ml 170 ml Intake Oral 1080 ml 120 ml IV Total 100 ml Packed Cells 400 ml Blood Product IV Normal Saline Flush 150 ml Output Urine Total 650 ml 500 ml 500 ml # Bowel Movements 0 Result Diagram: 09/04/17 0346 09/01/17 0630 Objective Remarks GENERAL: This is a well-nourished, well-developed patient, in no apparent distress. CARDIOVASCULAR: RRR, no gallops, or rubs. RESPIRATORY: Fair air entry bilaterally. No W, R, or R GASTROINTESTINAL: Abdomen soft, non-tender, nondistended. Positive bowel sounds MUSCULOSKELETAL: Extremities without clubbing, cyanosis, or edema. Pedal pulses appreciated NEUROLOGICAL: Awake and alert. Moves all extremity. Normal speech.no focal neurological deficit Procedures 08/04 -placement of NG tube IR Date of Insertion: August 04, 2017 A/P Assessment and Plan 76-year-old female with: 09/01: Discussed with pharmacist and with nurse regarding patient on low-dose Coumadin, and was told patient has very high sensitivity to Coumadin, pharmacy will continue managing a little more aggressive, INR is 1.1 today, continue current care, hemoglobin 7.1 today, continue on daptomycin, continue efforts for placement 09/02: No new complaint, continue Coumadin, continue antibiotic, follow and monitor improvement 09/03: Hemoglobin yesterday 6.2 patient had 1 unit of packed red blood cells will need to repeat H&H now, transfer to floor if hemoglobin stable, Coumadin mngmt, INR 1.3 today 09/04: Hemoglobin much better today 10.2 units PRBC transfused yesterday, patient with respiratory rates in the 25 discussed with the nurse seems to be her baseline she looks stable, will transfer to [facility] floor A/P: Chronic pain syndrome Status post removal of lumbar/sacral L5/S1 hardware 06/19 hx OM lumbar spine Chronic opioid use Monitor neuro status, avoid sedatives KAY drain removed 08/23 after discussion with [facility] neurosurgery, Dr. Wilson and plastics Dr. Dela Cruz (resident for Dr. Shirley). Lumbar CT showed surgical drain in posterior lumbar soft tissues, stranding and fluid ~2.7 cm just caudal to surgical drain without peripherally enhancing fluid collection. Patient originally had appointment with [facility] Neurosurgery 08/24 for followup and drain management. Now Dr. Wilson requests followup in Neurosurgery clinic sometime after antibiotics completed (daptomycin stop date planned for 09/09). Acute hypercapnic respiratory failure. Intermittent tachypnea Mild pulmonary hypertension COPD/asthma Continue with oxygen supplementation, keep sats >92% Ipratropium aerosols every 6 hours Albuterol allergy Status post steroids. Monitor closely, patient has low reserve and at high risk for intubation. A. fib RVR-resolved History of essential hypertension Chronic systolic congestive heart failure Chronic atrial fibrillation Monitor HR and BP keep MAP>65mmHg On Cardizem 60 mg Q6, Lopressor 50mg Q12, Hydralazine 50mg Q8 08/05 Echo- The left ventricular systolic function is moderately reduced with an EF 40-45%. Dyskinetic apical cap wall motion. The right ventricle is moderately dilated. Moderate mitral valve regurgitation. Aortic valve sclerosis is present. There is mild to moderate tricuspid valve regurgitation. There is estimated mild pulmonary hypertension present (range 40-50 mmHg). On Coumadin, dosing per pharmacy as per below. INR not yet therapeutic. Acute renal insufficiency incentive chronic kidney disease stage IV Right renal stone/no hydronephrosis Monitor renal function, I/O's, electrolytes replacement per protocol Replace fam 08/21 Anemia of chronic disease Thrombocytopenia and thrombocytosis, currently platelet within normal limits Leukocytosis MRSA Discitis Chronic warfarin use Funguria Sacral decubitus ulcers - wound care consulted.. Continue daptomycin. ID is following. CK 66 on 08/16. Daptomycin stop date 09/09. Followup with [facility] NSG some time after that. Drain was removed 08/23. Coumadin per pharmacy. Medical records release obtained for medical records at [facility]/[place] and [facility] - The patient has a history of recent surgery at [facility] in [place]. She underwent removal of hardware from the lumbosacral spine L1-S1 because of exposed loosened hardware from prior surgery. She reportedly had surgery of the lumbosacral spine 10 years prior. The surgery at [facility] was on 06/27. Intraoperative culture reportedly had MRSA. She was put on antibiotics by infectious disease to complete on 07/29/2017. She was receiving intravenous vancomycin. The patient completed the course of the vancomycin. There is a notation in the medical record that she is ALLERGIC TO VANCOMYCIN. She is currently on daptomycin. She was seen by infectious disease physician at [facility] and reportedly will be in need of IV antibiotics for 6 weeks because of osteomyelitis of the lumbar spine. 08/06 UTI -Denise-fluconazole 200mg/d 08/04- Blood Cultures -NGTD -- SSI Prophylaxis: GI Prophylaxis Famotidine BID DVT Prophylaxis - warfarin for a fib will also provide DVT prophylaxis. -- SCDs. Palliative care is following Discharge Planning Patient needs placement. Discussed the need for progression of care to senior care facility. She is still considering whether or not she will return to her previous SNF. No other accepting facility at this time. Patient will need to follow-up at after discharge. Yael Stanton MD Sep 04, 2017 13:44
[2017-09-04] MEDS ORDERED: WARFARIN SOD 1 MG TAB PO ONE (15:45)
[2017-09-04] MEDS: CYCLOBENZAPRINE HCL 10 MG TAB PO PRN (22:48)
[2017-09-05] VITALS (9 sets, daily range): BP systolic 114–140; BP diastolic 58–73; PULSE 68–90; RESP 18–48; TEMP 97.7–98.7; O2SAT 96–100
[2017-09-05] MEDS: CHLORHEXIDINE GLUCONATE 2 % 1 PACK (2 CLOTHS) TOP SCH (04:00)
[2017-09-05] MEDS: ARTIFICIAL TEARS OPTH SOLN 15 ML BTL EACH EYE SCH ×3 (05:27→23:28)
[2017-09-05] MEDS: SODIUM CHLORIDE 0.9% FLUSH 10 ML FLUSH IV FLUSH SCH ×5 (05:27→23:27)
[2017-09-05] MEDS: DILTIAZEM HCL 60 MG TAB PO SCH ×3 (05:27→16:57)
[2017-09-05] MEDS: hydrALAZINE HCL 50 MG TAB PO SCH ×3 (05:27→23:27)
[2017-09-05 07:31] LABS: INTERNATIONAL NORMALIZED RATIO 1.2 RATIO
[2017-09-05] MEDS: CHLORHEXIDINE 0.12% (ORAL KIT) 15 ML CUP MT SCH ×2 (08:00→20:00)
[2017-09-05] MEDS: INSULIN NovoLIN REGULAR SUPPLEMENTAL SCALE SQ SCH ×4 (08:55→21:00)
[2017-09-05] MEDS: LACTULOSE SYRUP 20 GM/30 ML CUP PO SCH ×2 (09:20→23:27)
[2017-09-05] MEDS: FAMOTIDINE 20 MG TAB PO SCH ×2 (09:20→23:28)
[2017-09-05] MEDS: DOCUSATE SODIUM 50 MG/SENNA 8.6 MG TAB PO SCH ×2 (09:20→23:26)
[2017-09-05] MEDS: MUPIROCIN 2% OINT 1 APPLIC/GM SYR EACH NARE SCH ×2 (09:20→21:00)
[2017-09-05] MEDS: ASCORBIC ACID 500 MG TAB PO SCH (09:20)
[2017-09-05] MEDS: METOPROLOL TARTRATE 50 MG TAB PO SCH ×2 (09:20→23:27)
[2017-09-05] MEDS: ZINC SULFATE 220 MG CAP PO SCH (09:20)
[2017-09-05] MEDS: DAPTOmycin INJ 500 MG in SODIUM CHLORIDE 0.9% INJ 100 ML IV SCH (11:27)
--- NOTE | 2017-09-05 12:48 | HHI.PR ---
Subjective Remarks Patient reported "I do not feel good " Patient could not tell why she feels that way when I also is not the breathing or pain she reported "breathing " Patient still on Coumadin with INR is 1.2 for A. fib, I previously discussed with the pharmacy to increase the dose I will check d-dimer, ultrasound of the lower extremity to rule out DVT and if d-dimer is positive will proceed with VQ scan will avoid CTA due to recent EMIR We will consider ridging with heparin if needed Objective Vitals Vital Signs Date Time Temp Pulse Resp B/P (MAP) Pulse Ox O2 Delivery O2 Flow Rate FiO2 09/05/17 12:00 98.7 78 22 118/58 (78) 96 09/05/17 12:00 77 09/05/17 08:00 83 09/05/17 08:00 97.8 75 24 140/64 (89) 100 09/05/17 07:00 100 Nasal Cannula 2.00 09/05/17 04:00 97.8 82 22 136/73 (94) 100 09/05/17 04:00 82 09/05/17 00:00 98.6 75 24 116/72 (87) 100 09/05/17 00:00 75 09/04/17 21:02 100 Nasal Cannula 3.00 09/04/17 20:00 98.3 84 34 132/61 (84) 100 09/04/17 20:00 80 09/04/17 19:00 100 Nasal Cannula 2.00 09/04/17 16:00 66 09/04/17 16:00 98.3 66 28 117/59 (78) 100 I/O 09/04/17 09/04/17 09/04/17 09/05/17 09/05/17 09/05/17 07:00 15:00 23:00 07:00 15:00 23:00 Intake Total 670 ml 100 ml 720 ml Output Total 500 ml 600 ml 400 ml Balance 170 ml 100 ml 120 ml -400 ml Intake Oral 120 ml 720 ml IV Total 100 ml Packed Cells 400 ml Blood Product IV Normal Saline Flush 150 ml Output Urine Total 500 ml 600 ml 400 ml # Bowel Movements 0 Result Diagram: 09/04/17 0346 09/01/17 0630 Objective Remarks GENERAL: This is a well-nourished, well-developed patient, in no apparent distress. CARDIOVASCULAR: RRR, no gallops, or rubs. RESPIRATORY: Fair air entry bilaterally. No W, R, or R GASTROINTESTINAL: Abdomen soft, non-tender, nondistended. Positive bowel sounds MUSCULOSKELETAL: Extremities without clubbing, cyanosis, or edema. Pedal pulses appreciated NEUROLOGICAL: Awake and alert. Moves all extremity. Normal speech.no focal neurological deficit Procedures 08/04 -placement of NG tube IR Date of Insertion: August 04, 2017 A/P Assessment and Plan 76-year-old female with: 09/01: Discussed with pharmacist and with nurse regarding patient on low-dose Coumadin, and was told patient has very high sensitivity to Coumadin, pharmacy will continue managing a little more aggressive, INR is 1.1 today, continue current care, hemoglobin 7.1 today, continue on daptomycin, continue efforts for placement 09/02: No new complaint, continue Coumadin, continue antibiotic, follow and monitor improvement 09/03: Hemoglobin yesterday 6.2 patient had 1 unit of packed red blood cells will need to repeat H&H now, transfer to floor if hemoglobin stable, Coumadin mngmt, INR 1.3 today 09/04: Hemoglobin much better today 10.2 units PRBC transfused yesterday, patient with respiratory rates in the 25 discussed with the nurse seems to be her baseline she looks stable, will transfer to [facility] floor 09/05: Due to continuing short of breath and INR continue to be at 1.2 for A. fib , I previously discussed with the pharmacy to increase the dose I will check d- dimer, ultrasound of the lower extremity to rule out DVT and if d-dimer is positive will proceed with VQ scan will avoid CTA due to recent EMIR We will consider ridging with heparin if needed A/P: Chronic pain syndrome Status post removal of lumbar/sacral L5/S1 hardware 06/19 hx OM lumbar spine Chronic opioid use Monitor neuro status, avoid sedatives KAY drain removed 08/23 after discussion with [facility] neurosurgery, Dr. Wilson and plastics Dr. Dela Cruz (resident for Dr. Shirley). Lumbar CT showed surgical drain in posterior lumbar soft tissues, stranding and fluid ~2.7 cm just caudal to surgical drain without peripherally enhancing fluid collection. Patient originally had appointment with [facility] Neurosurgery 08/24 for followup and drain management. Now Dr. Wilson requests followup in Neurosurgery clinic sometime after antibiotics completed (daptomycin stop date planned for 09/09). Acute hypercapnic respiratory failure. Intermittent tachypnea Mild pulmonary hypertension COPD/asthma Continue with oxygen supplementation, keep sats >92% Ipratropium aerosols every 6 hours Albuterol allergy Status post steroids. Monitor closely, patient has low reserve and at high risk for intubation. A. fib RVR-resolved History of essential hypertension Chronic systolic congestive heart failure Chronic atrial fibrillation Monitor HR and BP keep MAP>65mmHg On Cardizem 60 mg Q6, Lopressor 50mg Q12, Hydralazine 50mg Q8 08/05 Echo- The left ventricular systolic function is moderately reduced with an EF 40-45%. Dyskinetic apical cap wall motion. The right ventricle is moderately dilated. Moderate mitral valve regurgitation. Aortic valve sclerosis is present. There is mild to moderate tricuspid valve regurgitation. There is estimated mild pulmonary hypertension present (range 40-50 mmHg). On Coumadin, dosing per pharmacy as per below. INR not yet therapeutic. Acute renal insufficiency incentive chronic kidney disease stage IV Right renal stone/no hydronephrosis Monitor renal function, I/O's, electrolytes replacement per protocol Replace fam 08/21 Anemia of chronic disease Thrombocytopenia and thrombocytosis, currently platelet within normal limits Leukocytosis MRSA Discitis Chronic warfarin use Funguria Sacral decubitus ulcers - wound care consulted.. Continue daptomycin. ID is following. CK 66 on 08/16. Daptomycin stop date 09/09. Followup with [facility] NSG some time after that. Drain was removed 08/23. Coumadin per pharmacy. Medical records release obtained for medical records at [facility]/[place] and [facility] - The patient has a history of recent surgery at [facility] in [place]. She underwent removal of hardware from the lumbosacral spine L1-S1 because of exposed loosened hardware from prior surgery. She reportedly had surgery of the lumbosacral spine 10 years prior. The surgery at [facility] was on 06/27. Intraoperative culture reportedly had MRSA. She was put on antibiotics by infectious disease to complete on 07/29/2017. She was receiving intravenous vancomycin. The patient completed the course of the vancomycin. There is a notation in the medical record that she is ALLERGIC TO VANCOMYCIN. She is currently on daptomycin. She was seen by infectious disease physician at [facility] and reportedly will be in need of IV antibiotics for 6 weeks because of osteomyelitis of the lumbar spine. 08/06 UTI -Denise-fluconazole 200mg/d 08/04- Blood Cultures -NGTD -- SSI Prophylaxis: GI Prophylaxis Famotidine BID DVT Prophylaxis - warfarin for a fib will also provide DVT prophylaxis. -- SCDs. Palliative care is following Discharge Planning Patient needs placement. Discussed the need for progression of care to alf facility. She is still considering whether or not she will return to her previous SNF. No other accepting facility at this time. Patient will need to follow-up at after discharge. Yael Stanton MD Sep 05, 2017 12:48
[2017-09-05] MEDS ORDERED: WARFARIN SOD 2 MG TAB PO ONE (16:00)
[2017-09-05] MEDS: CYCLOBENZAPRINE HCL 10 MG TAB PO PRN (17:01)
[2017-09-05] MEDS: MORPHINE SULFATE ORAL SOLN 10 MG/0.5 ML SYRINGE PO PRN (17:39)
[2017-09-06] VITALS (17 sets, daily range): BP systolic 119–137; BP diastolic 60–68; PULSE 71–102; RESP 19–36; TEMP 97.4–99.7; O2SAT 97–100
--- NOTE | 2017-09-06 00:03 | RADRPT ---
EXAM DATE: 09/05/2017 11:53 PM EDT AGE/SEX: 76 years / Female INDICATIONS: Short of breath. CLINICAL DATA: This is the patient's initial encounter. Patient reports that signs and symptoms have been present for 1 day and indicates a pain score of 0/10. MEDICAL/SURGICAL HISTORY: Heart disease. Gastroesophageal reflux disease. Osteoporosis. Myoc ardial infarction. Asthma. Dyspnea. A Fib. Hepatitis. Anemia. Hypertension. Thrombocytopenia. Tonsil lectomy. Hysterectomy. Appendectomy. Orthopedic surgery. Skin graft. Back surgery. COMPARISON: No prior [place] exams available for comparison. TECHNIQUE: Venous ultrasound of both lower extremities was performed from the inguinal ligament to t he proximal calf. Real-time, color Doppler and spectral tracing, compression and augmentation techni ques were used. FINDINGS: Right Leg: There is normal compressibility of the deep venous system from the inguinal region to the proximal calf. No echogenic clot is seen in the lumen of the common femoral, femoral, popliteal, an d posterior tibial veins. There is a normal response of the venous system to proximal and distal aug mentation and respiration. Left Leg: There is normal compressibility of the deep venous system from the inguinal region to the proximal calf. No echogenic clot is seen in the lumen of the common femoral, femoral, popliteal, and posterior tibial veins. There is a normal response of the venous system to proximal and distal augm entation and respiration. CONCLUSION: 1. No evidence of DVT. Electronically signed by: Brown Smith MD 09/06/2017 12:01 AM EDT
[2017-09-06] MEDS ORDERED: RESP: ALBUTEROL 2.5 MG/IPRATROPIUM 0.5 MG NEB (PRN) NEB (00:15)
[2017-09-06] MEDS: MORPHINE SULFATE ORAL SOLN 10 MG/0.5 ML SYRINGE PO PRN (00:25)
[2017-09-06] MEDS: DILTIAZEM HCL 60 MG TAB PO SCH ×3 (00:40→17:05)
[2017-09-06] MEDS: CHLORHEXIDINE GLUCONATE 2 % 1 PACK (2 CLOTHS) TOP SCH (04:00)
[2017-09-06] MEDS: SODIUM CHLORIDE 0.9% FLUSH 10 ML FLUSH IV FLUSH SCH ×5 (05:08→22:55)
[2017-09-06] MEDS: hydrALAZINE HCL 50 MG TAB PO SCH ×3 (05:08→20:49)
[2017-09-06] MEDS: ARTIFICIAL TEARS OPTH SOLN 15 ML BTL EACH EYE SCH ×3 (05:09→22:00)
[2017-09-06] MEDS: RESP: ALBUTEROL 2.5 MG/IPRATROPIUM 0.5 MG NEB (SCH) NEB ×3 (05:58→20:21)
[2017-09-06 06:58] LABS: INTERNATIONAL NORMALIZED RATIO 1.2 RATIO; PROTHROMBIN TIME - PATIENT 11.8 SEC (9.8-11.6)
[2017-09-06] MEDS: INSULIN NovoLIN REGULAR SUPPLEMENTAL SCALE SQ SCH ×4 (08:00→22:13)
[2017-09-06] MEDS: CHLORHEXIDINE 0.12% (ORAL KIT) 15 ML CUP MT SCH ×2 (08:00→20:00)
[2017-09-06] MEDS: LACTULOSE SYRUP 20 GM/30 ML CUP PO SCH ×2 (09:00→21:00)
[2017-09-06] MEDS: MUPIROCIN 2% OINT 1 APPLIC/GM SYR EACH NARE SCH ×2 (09:00→21:00)
[2017-09-06] MEDS: METOPROLOL TARTRATE 50 MG TAB PO SCH ×2 (09:00→20:49)
[2017-09-06] MEDS: ZINC SULFATE 220 MG CAP PO SCH (09:35)
[2017-09-06] MEDS: FAMOTIDINE 20 MG TAB PO SCH ×2 (09:36→20:49)
[2017-09-06] MEDS: DOCUSATE SODIUM 50 MG/SENNA 8.6 MG TAB PO SCH ×2 (09:37→20:49)
[2017-09-06] MEDS: ASCORBIC ACID 500 MG TAB PO SCH (09:37)
[2017-09-06] MEDS: DAPTOmycin INJ 500 MG in SODIUM CHLORIDE 0.9% INJ 100 ML IV SCH (11:00)
--- NOTE | 2017-09-06 12:13 | RADRPT ---
EXAM DATE: 09/06/2017 11:27 AM EDT AGE/SEX: 76 years / Female INDICATIONS: Dyspnea. CLINICAL DATA: This is the patient's initial encounter. Patient reports that signs and symptoms have been present for 1 day and indicates a pain score of 0/10. MEDICAL/SURGICAL HISTORY: Congestive heart failure. Coronary artery disease, myocardial infarct ion and atrial fibrillation. Appendectomy. Hysterectomy. Back surgery. COMPARISON: [facility] [place], CHEST SINGLE AP, 08/30/2017. . DOSE: 0.5 mCi Tc99m DTPA aerosol 8.1 mCi Tc99m MAA IV TECHNIQUE: Following five minutes of tidal breathing of DTPA aerosol, planar images of the lungs wer e performed in eight projections. The patient was then injected with MAA, and eight-view perfusion s can was performed. FINDINGS: On several images, there is a defect seen over the left left upper lung and to a lesser degree the me dial right upper lung. This is likely related to the patient's chin. The patient's mouth can be seen on the ventilation portion of the study. There is decreased perfusion to the right lung base likely r elated to consolidation and effusion seen on the chest x-ray. There is poor dispersion of the aerosol ventilation portion of the study. Much of the activity is still seen in the patient's mouth. CONCLUSION: Low probability for pulmonary embolus. The ventilation portion study is compromised. There is much of the aerosolized material still within the patient's mouth. Electronically signed by: Sterling Segura MD 09/06/2017 12:12 PM EDT
--- NOTE | 2017-09-06 12:52 | HHI.PR ---
Subjective Remarks Still with short of breath and dyspnea on O2 nasal cannula Patient stated "I feel I am worn out" Lower extremity ultrasound and VQ scan with negative and low probability Objective Vitals Vital Signs Date Time Temp Pulse Resp B/P (MAP) Pulse Ox O2 Delivery O2 Flow Rate FiO2 09/06/17 08:09 99 Nasal Cannula 2.00 09/06/17 08:00 97.6 81 35 128/60 (82) 97 09/06/17 05:55 98 Nasal Cannula 3.00 09/06/17 04:00 97.9 71 19 119/60 (79) 100 09/06/17 03:41 73 09/06/17 01:41 98 09/06/17 00:40 102 24 130/67 (88) 100 09/06/17 00:22 99 40 09/06/17 00:08 99 Nasal Cannula 3.00 09/05/17 23:50 98.4 90 48 128/60 (82) 98 09/05/17 23:49 83 09/05/17 20:00 97.8 75 18 114/59 (77) 98 09/05/17 19:55 68 09/05/17 16:33 97.7 82 18 120/59 (79) 97 I/O 09/05/17 09/05/17 09/05/17 09/06/17 09/06/17 09/06/17 07:00 15:00 23:00 07:00 15:00 23:00 Output Total 400 ml 800 ml Balance -400 ml -800 ml Output Urine Total 400 ml 800 ml # Bowel Movements 1 Result Diagram: 09/04/17 0346 Objective Remarks GENERAL: This is a well-nourished, well-developed patient, in no apparent distress. CARDIOVASCULAR: RRR, no gallops, or rubs. RESPIRATORY: Fair air entry bilaterally. No W, R, or R GASTROINTESTINAL: Abdomen soft, non-tender, nondistended. Positive bowel sounds MUSCULOSKELETAL: Extremities without clubbing, cyanosis, or edema. Pedal pulses appreciated NEUROLOGICAL: Awake and alert. Moves all extremity. Normal speech.no focal neurological deficit Procedures 08/04 -placement of NG tube IR Date of Insertion: August 04, 2017 A/P Assessment and Plan 76-year-old female with: 09/01: Discussed with pharmacist and with nurse regarding patient on low-dose Coumadin, and was told patient has very high sensitivity to Coumadin, pharmacy will continue managing a little more aggressive, INR is 1.1 today, continue current care, hemoglobin 7.1 today, continue on daptomycin, continue efforts for placement 09/02: No new complaint, continue Coumadin, continue antibiotic, follow and monitor improvement 09/03: Hemoglobin yesterday 6.2 patient had 1 unit of packed red blood cells will need to repeat H&H now, transfer to floor if hemoglobin stable, Coumadin mngmt, INR 1.3 today 09/04: Hemoglobin much better today 10.2 units PRBC transfused yesterday, patient with respiratory rates in the 25 discussed with the nurse seems to be her baseline she looks stable, will transfer to [facility] floor 09/05: Due to continuing short of breath and INR continue to be at 1.2 for A. fib , I previously discussed with the pharmacy to increase the dose I will check d- dimer, ultrasound of the lower extremity to rule out DVT and if d-dimer is positive will proceed with VQ scan will avoid CTA due to recent EMIR We will consider ridging with heparin if needed 09/06: Still with short of breath, lower extremity ultrasound negative for DVT, VQ scan with low probability, I will consult pulmonology, INR is 1.2 a need to proceed with CTA Monitor CBC and BMP A/P: Chronic pain syndrome Status post removal of lumbar/sacral L5/S1 hardware 06/19 hx OM lumbar spine Chronic opioid use Monitor neuro status, avoid sedatives KAY drain removed 08/23 after discussion with [facility] neurosurgery, Dr. Wilson and plastics Dr. Dela Cruz (resident for Dr. Shirley). Lumbar CT showed surgical drain in posterior lumbar soft tissues, stranding and fluid ~2.7 cm just caudal to surgical drain without peripherally enhancing fluid collection. Patient originally had appointment with [facility] Neurosurgery 08/24 for followup and drain management. Now Dr. Wilson requests followup in Neurosurgery clinic sometime after antibiotics completed (daptomycin stop date planned for 09/09). Acute hypercapnic respiratory failure. Intermittent tachypnea Mild pulmonary hypertension COPD/asthma Continue with oxygen supplementation, keep sats >92% Ipratropium aerosols every 6 hours Albuterol allergy Status post steroids. Monitor closely, patient has low reserve and at high risk for intubation. A. fib RVR-resolved History of essential hypertension Chronic systolic congestive heart failure Chronic atrial fibrillation Monitor HR and BP keep MAP>65mmHg On Cardizem 60 mg Q6, Lopressor 50mg Q12, Hydralazine 50mg Q8 08/05 Echo- The left ventricular systolic function is moderately reduced with an EF 40-45%. Dyskinetic apical cap wall motion. The right ventricle is moderately dilated. Moderate mitral valve regurgitation. Aortic valve sclerosis is present. There is mild to moderate tricuspid valve regurgitation. There is estimated mild pulmonary hypertension present (range 40-50 mmHg). On Coumadin, dosing per pharmacy as per below. INR not yet therapeutic. Acute renal insufficiency incentive chronic kidney disease stage IV Right renal stone/no hydronephrosis Monitor renal function, I/O's, electrolytes replacement per protocol Replace fam 08/21 Anemia of chronic disease Thrombocytopenia and thrombocytosis, currently platelet within normal limits Leukocytosis MRSA Discitis Chronic warfarin use Funguria Sacral decubitus ulcers - wound care consulted.. Continue daptomycin. ID is following. CK 66 on 08/16. Daptomycin stop date 09/09. Followup with [facility] NSG some time after that. Drain was removed 08/23. Coumadin per pharmacy. Medical records release obtained for medical records at [facility]/[place] and [facility] - The patient has a history of recent surgery at [facility] in [place]. She underwent removal of hardware from the lumbosacral spine L1-S1 because of exposed loosened hardware from prior surgery. She reportedly had surgery of the lumbosacral spine 10 years prior. The surgery at [facility] was on 06/27. Intraoperative culture reportedly had MRSA. She was put on antibiotics by infectious disease to complete on 07/29/2017. She was receiving intravenous vancomycin. The patient completed the course of the vancomycin. There is a notation in the medical record that she is ALLERGIC TO VANCOMYCIN. She is currently on daptomycin. She was seen by infectious disease physician at [facility] and reportedly will be in need of IV antibiotics for 6 weeks because of osteomyelitis of the lumbar spine. 08/06 UTI -Denise-fluconazole 200mg/d 08/04- Blood Cultures -NGTD -- SSI Prophylaxis: GI Prophylaxis Famotidine BID DVT Prophylaxis - warfarin for a fib will also provide DVT prophylaxis. -- SCDs. Palliative care is following Discharge Planning Patient needs placement. Discussed the need for [facility] of care to [facility] facility. She is still considering whether or not she will return to her previous SNF. No other accepting facility at this time. Patient will need to follow[facility]up at [facility] after discharge. Yael Stanton MD Sep 06, 2017 12:52
[2017-09-06 15:12] LABS: AUTOMATED NEUTROPHIL # 8.2 TH/MM3 (1.8-7.7); BASOPHIL # 0.1 TH/MM3 (0-0.2); EOSINOPHIL # 0.1 TH/MM3 (0-0.4); EOSINOPHIL % 0.9 % (0.0-4.0); HEMATOCRIT 30.3 % (35.0-46.0); HEMOGLOBIN 10.5 GM/DL (11.6-15.3); LYMPH % 4.4 % (9.0-44.0); LYMPHOCYTE # 0.4 TH/MM3 (1.0-4.8); MEAN CELL VOLUME 94.3 FL (80.0-100.0); MEAN CORPUSCULAR HEMOGLOBIN 32.6 PG (27.0-34.0); MEAN CORPUSCULAR HGB CONC 34.5 % (32.0-36.0); MEAN PLATELET VOLUME 8.8 FL (7.0-11.0); MONO % 7.9 % (0.0-8.0); MONOCYTE # 0.8 TH/MM3 (0-0.9); NEUT % 85.8 % (16.0-70.0); PLATELET COUNT 300 TH/MM3 (150-450); RED BLOOD COUNT 3.22 MIL/MM3 (4.00-5.30); RED CELL DISTRIBUTION WIDTH 16.8 % (11.6-17.2); WHITE BLOOD COUNT 9.5 TH/MM3 (4.0-11.0)
[2017-09-06] MEDS ORDERED: WARFARIN SOD 3 MG TAB PO ONE (16:00)
[2017-09-06 16:09] LABS: BICARBONATE 32.5 MEQ/L (21.0-32.0); CREATININE 0.83 MG/DL (0.50-1.00)
--- NOTE | 2017-09-06 17:35 | MB ---
cc: Claudia Taylor MD DATE: 09/06/2017 REASON FOR CONSULTATION: Pneumonia. HISTORY OF PRESENT ILLNESS: Ms. Nicolas is a 76-year-old female admitted with respiratory distress, hypoxic and hypercarbic respiratory failure, intubated, mechanically ventilated, now off ventilatory support, on oxygen via nasal cannula. Chest x-ray with underlying pneumonitis. She is pleasant and appears in no acute distress at this time. PAST MEDICAL HISTORY: Notable for COPD, atrial fibrillation, congestive heart failure, pancytopenia, chronic anemia, previous hysterectomy, appendectomy, cholecystectomy and tonsillectomy as a child, history of acid reflux disease. SOCIAL HISTORY: Remote smoking history. Does not smoke or drink at present. Does not use drugs. FAMILY HISTORY: Noncontributory. SYSTEMS REVIEW: As per HPI and past history, otherwise negative. PRESENT MEDICATIONS: Include ceftriaxone, nebulized Atrovent, Flonase, Pepcid, Dina-Colace and daptomycin. ALLERGIES: VANCOMYCIN, ALBUTEROL, GABAPENTIN, IPRATROPIUM, IRON, PENICILLIN, AND PROCHLORPERAZINE. PHYSICAL EXAMINATION: GENERAL: Patient alert. VITAL SIGNS: Temperature 98, pulse 90, respirations 18, blood pressure 120/74. HEENT: Unremarkable. Eyes without icterus. NECK: Without adenopathy, thyroid enlargement. Central trachea. CHEST: Few scattered rhonchi at bases. CARDIAC: ____ irregularity noted. ABDOMEN: Lax. Bowel sounds audible. EXTREMITIES: Trace edema. LABORATORY DATA: White count 14,000; hemoglobin 10; hematocrit 32. BUN 45, creatinine 1.6, sodium 142. IMAGING STUDIES: Chest x-ray last done 08/30/2017 with development of right lower lung infiltrate of mild degree. Ventilation perfusion lung scan with low probability for pulmonary embolism. IMPRESSION: 1. Respiratory failure, now off ventilatory support, on O2 therapy via nasal cannula. 2. Hypoxic hypercarbic respiratory failure. 3. Atrial fibrillation. 4. Congestive heart failure. 5. Renal insufficiency, acute. 6. Pneumonia. PLAN: The patient is improved since hospitalization. She continues to need oxygen therapy. Her chest x-ray is with a lung infiltrate, which would need followup at this time with last chest x-ray on 09/30. Continue bronchodilator therapy. Present antibiotic therapy will be continued. The patient is followed by infectious disease. This obviously will be followed until cleared. Given the patient's advanced age and multiple medical problems, her prognosis is guarded to poor. I do thank you for asking me to partake in Ms. Maria Isabel hamlin. MD LYLE León/DREW , 05:03 PM , 05:34 PM
--- NOTE | 2017-09-06 22:42 | RADRPT ---
EXAM DATE: 09/06/2017 10:37 PM EDT AGE/SEX: 76 years / Female INDICATIONS: Short of breath. Respiratory distress. CLINICAL DATA: This is the patient's subsequent encounter. Patient reports that signs and symptoms h ave been present for 4 - 6 days and indicates a pain score of Nonresponsive. MEDICAL/SURGICAL HISTORY: None. None. COMPARISON: [facility] [place], CHEST SINGLE AP, 08/30/2017. . FINDINGS: There is consolidation at the right lung base, and a small right effusion is noted. There are marked soft tissue calcification seen right upper arm again noted. There is cardiomegaly. Osseous structures are intact.. CONCLUSION: Stable appearance of the chest. Electronically signed by: Gordon Mullins MD 09/06/2017 10:41 PM EDT
--- NOTE | 2017-09-06 23:06 | HHI.FPPN ---
Addendum to progress note ADDENDUM Reason for addendum: Additonal documentation Additional information S: Pati Ellsworth and Stormy were paged at approximately 10PM for a Halicat at Rm 1507 for a pt in respiratory distress. Pati responded to bedside where Ms Nicolas, a 76 YO female was on BiPaP breathing at a rate of 41 bpm. Pt was admitted to the hospital for MRSA infection in her lumbar spine and spent time in the ICU then was moved to the floor several days ago. Nursing reports that [facility] was too busy to see the pt so a Halicat was called. Nursing states pt has had increased RR all day on BiPaP and pt is becoming fatigued. Prior ABG indicates pt has metabolic alkalosis. Blood glucose at bedside 264. O: Vital signs: HR 91 / BP 137/63 / RR 41 / saO2 100% on BiPaP at 100% Vital Signs Date Time Temp Pulse Resp B/P (MAP) Pulse Ox O2 Delivery O2 Flow Rate FiO2 09/06/17 22:45 99.4 84 20 125/64 (84) 09/06/17 22:16 100 09/06/17 22:00 40 09/06/17 08:09 Nasal Cannula 2.00 GENERAL: Cachectic elderly lady slumped over in bed with BiPaP in place with increased RR and accessory muscle use SKIN: Warm and dry. HEAD: Normocephalic. EYES: No scleral icterus. No injection or drainage. NECK: Supple, trachea midline. JVD present; no lymphadenopathy. CARDIOVASCULAR: Regular rate and rhythm without murmurs, gallops, or rubs. RESPIRATORY: Coarse breath sounds bilaterally. Increased accessory muscle use and work of breathing. On BiPaP. GASTROINTESTINAL: Abdomen soft, non-tender, nondistended. EXTREMITIES: No cyanosis, or edema. NEUROLOGICAL: Awake and alert. Non-focal. Last 24 hours Impressions Lung Scan-VQ Nuclear Medicine 09/06/17 0000 Signed Impressions: CONCLUSION: Low probability for pulmonary embolus. The ventilation portion study is comprom ised. There is much of the aerosolized material still within the patient's mout h. Chest X-Ray 09/06/17 0000 Signed Impressions: CONCLUSION: Stable appearance of the chest. A/P: 76 YO female with acute respiratory distress and MRSA infection of spine, low probability for PE, CXR w/o pneumothorax. -V/Q scan low probability for PE -CXR with effusion vs infiltrate in right lung with decreased lung volumes -ABG pending -[employer] consulted--spoke with Dr South who responded to bedside -Consider intubation -Pt transfer to [facility] [place] -SSI Pt SDW Thomas Edmond MD R1 Sep 06, 2017 23:06
--- NOTE | 2017-09-06 23:42 | HHI.CCPN ---
Subjective Remarks/Hospital Course 76-year-old female resident of the [place] presents with complaints of respiratory difficulty. Onset was today. She is also complaining with some chest discomfort. She denies productive cough. Her symptoms are moderate to severe with no exacerbating factors. This patient was reportedly just discharged from [facility] with discitis secondary to MRSA. 53: Afebrile. Early this a.m. patient still having respiratory difficulty noted metabolic acidosis with a bicarb level 13, sodium bicarbonate infusion continues. She noticed to have respiratory distress ABGs performed. Impending intubation 7.10. Patient noted to have KAY drain emanating from back with dressing taken down no area redness yellow fluid and KAY drain sent for wound culture analysis. Upon further investigation patient's brother at bedside patient had lumbar hardware removed from [facility] in [place] approximately 6 weeks ago secondary to hardware eroding through the back and could be visualized on site. 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 Gottlieb cultures are pending. Attempts at medical record release forms from [facility] are pending. Patient previously last week at [facility] for acute kidney injury/urinary tract infection, attempting to obtain medical record. Patient was discharged approximately 2-3 days ago per report. This a.m. patient went into A. fib RVR with a heart rate in the 150s patient was given metoprolol 2 doses heart rate 112, patient is known to have chronic atrial fibrillation previously on Cardizem and digoxin 0.125 IV 1 dose Cardizem reinitiated. Discussion with patient regarding intubation and patient' s brother at bedside patient desires aggressive measures be undertaken patient requests intubation if needed and to remain a full code. Noted open areas skin wound areas on the lower extremities well-healed skin graft site left thigh wound care has been consulted. Palliative care also has been consulted to define goals of care. 08/05: Patient noted with elevated INR, Coumadin has been discontinued for 2 days. Vitamin K ordered. No active signs of bleeding. Patient on sedation vacation following commands. Afib rate controlled 70's-80's since addition to p.o. Cardizem. 6: Patient is currently on PSV trial FiO2 35%. Minimal secretions. Tolerating tube feeds. No bowel movement yesterday. Follows commands. 08/08: Temperature currently 98.8. Adequate weaning parameters however no cough leak. We will give dexamethasone 1 day and recheck cuff leak in a.m. Awake and follows commands. Transaminases normalized. Creatinine continues to slowly rise. 08/09: No events overnight. Patient is lethargic, easily arousable, tolerating CPAP at 10/5. T-max of 99.9. Still no cuff leak. Urine output is appropriate , with 3650 mL's over the last 24 hours. No family present at bedside. 08/10: No events over the night. Patient is awake, complaining of back pain, on fentanyl at 150 mics/hr. Tolerating CPAP 15/5. Afebrile over the night, with a T-max of 98.8. Negative fluid balance over the last 24 hours, -500 cc. 08/11: Patient remains intubated and sedated. She did well over the night. T- max of 98.6. She continues to be on fentanyl drip for back pain, asleep, easily arousable, follows commands. 08/12: No events over the night. Patient remains intubated, on fentanyl drip, easily arousable, following commands. Great response to diuretics, more than 3600 mL's urine output. Patient tolerated CPAP well yesterday but after being cleaned she developed tachycardia and tachypnea requiring full support. T-max of 99.3. 08/13: No events over the night. T-max of 98.6. She responded great to diuresis post Lasix, negative more than 3.3 L over the last 24 hours. She remains on fentanyl drip, lethargic, easily arousable. Oxygenation is unchanged. Chest x-ray reviewed, ET tube is in good position, 3 cm above paulo , unchanged bilateral opacities. 08/14: Patient remains intubated, on fentanyl infusion at 250 mcg/hour. T-max of 99.7. Negative almost 1 L over last 24 hours. Being but easily arousable, denies any complaints. On CPAP 12/5 tolerating well. 08/15 Patient is lying in bed in NAD. On BIPAP 01/09 with 50% FIO2. Afebrile. s/p extubation yesterday. 08/16 Patient was placed on BIPAP overnight. Afebrile 08/17 Patient is on 5L oxygen, afebrile. 08/18 No events overnight. Patient used BIPAP for 4 hrs overnight. 08/19 No events overnight. On 5L oxygen. Afebrile 08/20 On 5 L NC, appears tachypneic. Afebrile. 08/21 Says she isn't feeling well today but unable to localize anything specific. Afebrile. No leukocytosis. No chest pain. She appears slightly tachypneic but denies shortness of breath. There is serous drainage around her lumbar drain site that is soaking pads. 08/22: Awake and alert. On nasal cannula. Drainage around lumbar drain site noted. Consult neurosurgery Dr. Rivera who recommends transferring patient to [facility] where she had lumbar surgery. Subjective: 08/23 Drain has no output and not holding suction, leakage of serous fluid around drain site. I had replaced the bulb without improvement. Discussed with [facility] Neurosurgery, Nancy, who is PA for Dr. Jhon Wilson who communicated with Dr. Wilson as well and then called me back. Update provided regarding clinical condition, reason for admission, imaging, labs, presence of large sacral decub ulcers. Recommended patient followup with him when she has completed antibiotic course (daptomycin to be completed 09/09 per ). No need to transfer at this time. Suspects drain can be removed but defers management of drain to Dr. Shirley, plastic surgery. Discussed with Dr. Dela Cruz who is resident with Dr. Shirley. He recommends applying bacitracin ointment around the drain site to try to regain seal. If drain still not holding suction after this, it is okay to remove. Nurse did assist me with rolling the patient and I tried this but was unable to get a good seal with the dependent edema and thin unsubstantial tissue surrounding the drain. The drain was removed. 08/24: On nasal cannula. Unstageable sacral wound. Not in any acute distress. 08/25: Remains on nasal cannula. 09/06: Rapid response called for the patient in respiratory distress, with tachypnea, improving on facemask BiPAP Objective Vital Signs Date Time Temp Pulse Resp B/P (MAP) Pulse Ox O2 Delivery O2 Flow Rate FiO2 09/06/17 22:48 100 40 09/06/17 22:45 99.4 84 20 125/64 (84) 09/06/17 08:09 Nasal Cannula 2.00 Intake and Output 09/06/17 09/06/17 09/07/17 08:00 16:00 00:00 Output Total 1050 ml 100 ml Balance -1050 ml -100 ml Result Diagram: 09/06/17 1349 09/06/17 1506 Other Results Laboratory Tests Test 09/06/17 17:20 09/06/17 22:01 Blood Gas Puncture Site RT RADIAL RT RADIAL Blood Gas Patient Temperature 98.6 98.6 Blood Gas HCO3 33 mmol/L (22-26) 32 mmol/L (22-26) Blood Gas Base Excess 8.3 mmol/L (-2-2) 7.4 mmol/L (-2-2) Blood Gas Oxygen Saturation 93 % (90-100) 96 % (90-100) Arterial Blood pH 7.45 (7.380-7.420) 7.44 (7.380-7.420) Arterial Blood Partial Pressure CO2 48 mmHg (38-42) 48 mmHg (38-42) Arterial Blood Partial Pressure O2 77 mmHg (61-120) 122 mmHg (61-120) Arterial Blood Oxygen Content 14.2 Vol % (12.0-20.0) 13.7 Vol % (12.0-20.0) Arterial Blood Carboxyhemoglobin 2.2 % (0-4) 2.1 % (0-4) Arterial Blood Methemoglobin 1.1 % (0-2) 1.1 % (0-2) Blood Gas Hemoglobin 10.8 G/DL (12.0-16.0) 10.0 G/DL (12.0-16.0) Oxygen Delivery Device NASAL CANNULA BIPAP Blood Gas Liter Flow 2 L/M Blood Gas Ventilator Setting 15/5/ 40% Blood Gas Inspired Oxygen 40 % Imaging Last Impressions Chest X-Ray 08/18/17 0000 Signed Impressions: Service Date/Time: August 10:12 - CONCLUSION: 1. Patchy bilateral airspace disease and areas of pleural thickening, unchanged. 2. Stable cardiomegaly. 3. Interval removal of the endotracheal and nasogastric tubes. 4. Stable soft tissue calcification/ossification over the left humerus/shoulder Rogelio Santos MD Lumbar Spine CT 08/04/17 0000 Signed Impressions: Service Date/Time: August 13:46 - CONCLUSION: 1. There is low density in the soft tissues at the recent laminectomy site L4-L5 measuring up to 2.4 cm in thickness with out deformity of the posterior thecal sac at the laminectomy site. 2. Stable anterolisthesis at L5-S1 with bony fusion. 3. 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 Maykel Singh MD Abdomen/Pelvis CT 08/04/17 Signed Impressions: Service Date/Time: August 13:46 - CONCLUSION: 1. There is stool diffusely throughout the colon suggesting constipation. 2. The solid organs of the abdomen are grossly intact. 3. No free air free fluid seen within the abdomen. No abscess is identified. 4. Small amount of free fluid within the abdomen. 5. Bilateral pleural effusions and consolidation. 6. Cardiomegaly. 7. 2 mm nonobstructing stone in the lower pole collecting system of the right kidney. 8. Anasarca. Mil Toro MD Abdomen Fluoroscopy 08/04/17 0000 Signed Impressions: Service Date/Time: August 17:00 - CONCLUSION: Uncomplicated nasoenteric suction type catheter (NGT) placement as above. Librado Hernandez MD Procedures 08/04 -placement of NG tube IR Objective Remarks GENERAL: 76-year-old female in moderate respiratory distress on facemask BiPAP. Significantly kyphotic. SKIN: Warm and dry. The surgical incision is well healed. There is a 7cm x 7cm sacral decubitus ulcer with eschar on the right side of sacrum and another 7cm x 6 cm eschar on the left sacrum. HEAD: Normocephalic. EYES: No scleral icterus. No injection or drainage. NECK: Supple, trachea midline. No JVD or lymphadenopathy. CARDIOVASCULAR: Regular rate and rhythm without murmurs, gallops, or rubs. RESPIRATORY: Tachypneic, no accessory muscle use. Has anterior rales. GASTROINTESTINAL: Abdomen soft, non-tender, nondistended. Bowel sounds present. : Simpson in place. MUSCULOSKELETAL: No cyanosis, trace edema. Neuro: Alert awake, following commands. Date of Insertion: August 04, 2017 A/P Problem List: (1) Afib ICD Code: I48.91 - Unspecified atrial fibrillation Status: Acute (2) EMIR (acute kidney injury) ICD Code: N17.9 - Acute kidney failure, unspecified Status: Acute (3) CKD (chronic kidney disease) stage 4, GFR 15-29 ml/min ICD Code: N18.4 - Chronic kidney disease, stage 4 (severe) Status: Acute (4) Renal insufficiency ICD Code: N28.9 - Disorder of kidney and ureter, unspecified Status: Acute (5) Chronic pain ICD Code: G89.29 - Other chronic pain Status: Acute (6) Atrial fibrillation with RVR ICD Code: I48.91 - Unspecified atrial fibrillation Status: Acute (7) Hyperkalemia ICD Code: E87.5 - Hyperkalemia Status: Acute (8) Severe sepsis ICD Code: A41.9 - Sepsis, unspecified organism; R65.20 - Severe sepsis without septic shock (9) Metabolic acidosis ICD Code: E87.2 - Acidosis Status: Resolved (10) Hypoglycemia ICD Code: E16.2 - Hypoglycemia, unspecified Status: Acute (11) Cardiomegaly ICD Code: I51.7 - Cardiomegaly Status: Acute Assessment and Plan Neuro/Psych: Chronic pain syndrome Status post removal of lumbar/sacral L5/S1 hardware 06/19 Chronic opioid use Monitor neuro status, avoid sedatives KAY drain removed 08/23 after discussion with [facility] neurosurgery, Dr. Wilson and plastics Dr. Dela Cruz (resident for Dr. Shirley). Dr. Wilson requests followup in Neurosurgery clinic sometime after antibiotics completed (daptomycin stop date planned for 09/09). Respiratory: Acute hypercapnic respiratory failure Mild pulmonary hypertension COPD/asthma Continue with oxygen keep sats >92% Ipratropium aerosols every 6 hours Albuterol allergy Solumederol 40mg IV daily. Diamox 4 doses Cardiovascular: A. fib RVR-resolved History of essential hypertension Chronic systolic congestive heart failure Chronic atrial fibrillation Monitor HR and BP keep MAP>65mmHg On Cardizem 60 mg Q6, Lopressor 50mg Q12, Hydralazine 50mg Q8 08/05 Echo- The left ventricular systolic function is moderately reduced with an EF 40-45%. Dyskinetic apical cap wall motion. The right ventricle is moderately dilated. Moderate mitral valve regurgitation. Aortic valve sclerosis is present. There is mild to moderate tricuspid valve regurgitation. There is estimated mild pulmonary hypertension present (range 40-50 mmHg). Home medications include isosorbide dinitrate 30 mg daily, metoprolol succinate 50 mg daily lisinopril 2.5 mg daily. These are currently on hold On Coumadin, dosing per pharmacy as per below. Renal: Acute renal insufficiency incentive chronic kidney disease stage IV Right renal stone/no hydronephrosis Metabolic alkalosis Monitor renal function, I/O's, electrolytes replacement per protocol Diamox 250 every 6 hours 4 FEN/GI: On PO diet Famotidine 10 mg twice daily for GI prophylaxis. Docusate sodium/senna 1 tablet twice daily, lactulose 30 cc twice daily for bowel regimen Heme/ID: Anemia of chronic disease Thrombocytopenia Leukocytosis MRSA Discitis Chronic warfarin use Funguria Sacral decubitus ulcers - wound care consulted.. Continue daptomycin. ID is following. CK 66 on 08/16. Daptomycin stop date 09/09. Followup with [facility] NSG some time after that. Drain was removed 08/23. Coumadin per pharmacy. Medical records release obtained for medical records at [facility]/[place] and [facility] - The patient has a history of recent surgery at [facility] in [place]. She underwent removal of hardware from the lumbosacral spine L1-S1 because of exposed loosened hardware from prior surgery. She reportedly had surgery of the lumbosacral spine 10 years prior. The surgery at [facility] was on 06/27. Intraoperative culture reportedly had MRSA. She was put on antibiotics by infectious disease to complete on 07/29/2017. She was receiving intravenous vancomycin. The patient completed the course of the vancomycin. There is a notation in the medical record that she is ALLERGIC TO VANCOMYCIN. She is currently on daptomycin. She was seen by infectious disease physician at [facility] and reportedly will be in need of IV antibiotics for 6 weeks because of osteomyelitis of the lumbar spine. 08/06 UTI -Denise-fluconazole 200mg/d 08/04- Blood Cultures -NGTD Endocrine: Glucose monitoring per ICU protocol -- SSI Prophylaxis: GI Prophylaxis Famotidine BID DVT Prophylaxis - warfarin for a fib will also provide DVT prophylaxis. -- SCDs. Lines: PICC line Palliative care is following Critical Care: The total critical care time was 35 minutes. Time to perform other separately billable procedures was not included in the critical care time. Ken South MD Sep 06, 2017 23:42
[2017-09-07] VITALS (23 sets, daily range): BP systolic 95–127; BP diastolic 50–66; PULSE 75–96; RESP 11–32; TEMP 97.9–99.5; O2SAT 94–100
[2017-09-07] MEDS: DILTIAZEM HCL 60 MG TAB PO SCH ×4 (00:11→19:14)
[2017-09-07] MEDS: RESP: ALBUTEROL 2.5 MG/IPRATROPIUM 0.5 MG NEB (SCH) NEB ×4 (03:19→20:57)
[2017-09-07] MEDS: CHLORHEXIDINE GLUCONATE 2 % 1 PACK (2 CLOTHS) TOP SCH (03:33)
--- NOTE | 2017-09-07 04:41 | RADRPT ---
EXAM DATE: 09/07/2017 4:39 AM EDT AGE/SEX: 76 years / Female INDICATIONS: Short of breath. CLINICAL DATA: This is the patient's subsequent encounter. Patient reports that signs and symptoms h ave been present for 1 week and indicates a pain score of 0/10. MEDICAL/SURGICAL HISTORY: Non-responsive. Non-responsive. COMPARISON: [facility] [place], CHEST SINGLE AP, 09/06/2017. . FINDINGS: There is improved aeration of the right lung base compared to the prior study. The left lung remains grossly clear. The heart size is enlarged but stable. No other new or significant changes are demonst rated. CONCLUSION: Improving infiltrate in the right lung base. Electronically signed by: Brown Smith MD 09/07/2017 4:40 AM EDT
[2017-09-07] MEDS: hydrALAZINE HCL 50 MG TAB PO SCH ×3 (05:12→21:14)
[2017-09-07] MEDS: SODIUM CHLORIDE 0.9% FLUSH 10 ML FLUSH IV FLUSH SCH ×5 (05:13→21:08)
[2017-09-07] MEDS: ARTIFICIAL TEARS OPTH SOLN 15 ML BTL EACH EYE SCH ×3 (05:13→21:15)
[2017-09-07 05:43] LABS: ALBUMIN 2.1 GM/DL (3.4-5.0); ALKALINE PHOSPHATASE 170 U/L (45-117); ALT (GPT) 36 U/L (10-53); AST (GOT) 33 U/L (15-37); BICARBONATE 24.7 MEQ/L (21.0-32.0); BLOOD UREA NITROGEN 40 MG/DL (7-18); CALCIUM 8.6 MG/DL (8.5-10.1); CHLORIDE 102 MEQ/L (98-107); CREATININE 0.71 MG/DL (0.50-1.00); GLOMERULAR FILTRATION RATE 80 ML/MIN (>89); GLUCOSE,RANDOM 63 MG/DL (74-106); PHOSPHORUS 3.5 MG/DL (2.5-4.9); SODIUM (NA) 138 MEQ/L (136-145)
--- NOTE | 2017-09-07 07:28 | HHI.CCPN ---
Subjective Remarks/Hospital Course 76-year-old female resident of the long-term presents with complaints of respiratory difficulty. Onset was today. She is also complaining with some chest discomfort. She denies productive cough. Her symptoms are moderate to severe with no exacerbating factors. This patient was reportedly just discharged from [facility] with discitis secondary to MRSA. 53: Afebrile. Early this a.m. patient still having respiratory difficulty noted metabolic acidosis with a bicarb level 13, sodium bicarbonate infusion continues. She noticed to have respiratory distress ABGs performed. Impending intubation 7.10. Patient noted to have KAY drain emanating from back with dressing taken down no area redness yellow fluid and KAY drain sent for wound culture analysis. Upon further investigation patient's brother at bedside patient had lumbar hardware removed from [facility] in [place] approximately 6 weeks ago secondary to hardware eroding through the back and could be visualized on site. 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 Gottlieb cultures are pending. Attempts at medical record release forms from [facility] are pending. Patient previously last week at [facility] for acute kidney injury/urinary tract infection, attempting to obtain medical record. Patient was discharged approximately 2-3 days ago per report. This a.m. patient went into A. fib RVR with a heart rate in the 150s patient was given metoprolol 2 doses heart rate 112, patient is known to have chronic atrial fibrillation previously on Cardizem and digoxin 0.125 IV 1 dose Cardizem reinitiated. Discussion with patient regarding intubation and patient' s brother at bedside patient desires aggressive measures be undertaken patient requests intubation if needed and to remain a full code. Noted open areas skin wound areas on the lower extremities well-healed skin graft site left thigh wound care has been consulted. Palliative care also has been consulted to define goals of care. 08/05: Patient noted with elevated INR, Coumadin has been discontinued for 2 days. Vitamin K ordered. No active signs of bleeding. Patient on sedation vacation following commands. Afib rate controlled 70's-80's since addition to p.o. Cardizem. 6: Patient is currently on PSV trial FiO2 35%. Minimal secretions. Tolerating tube feeds. No bowel movement yesterday. Follows commands. 08/08: Temperature currently 98.8. Adequate weaning parameters however no cough leak. We will give dexamethasone 1 day and recheck cuff leak in a.m. Awake and follows commands. Transaminases normalized. Creatinine continues to slowly rise. 08/09: No events overnight. Patient is lethargic, easily arousable, tolerating CPAP at 10/5. T-max of 99.9. Still no cuff leak. Urine output is appropriate , with 3650 mL's over the last 24 hours. No family present at bedside. 08/10: No events over the night. Patient is awake, complaining of back pain, on fentanyl at 150 mics/hr. Tolerating CPAP 15/5. Afebrile over the night, with a T-max of 98.8. Negative fluid balance over the last 24 hours, -500 cc. 08/11: Patient remains intubated and sedated. She did well over the night. T- max of 98.6. She continues to be on fentanyl drip for back pain, asleep, easily arousable, follows commands. 08/12: No events over the night. Patient remains intubated, on fentanyl drip, easily arousable, following commands. Great response to diuretics, more than 3600 mL's urine output. Patient tolerated CPAP well yesterday but after being cleaned she developed tachycardia and tachypnea requiring full support. T-max of 99.3. 08/13: No events over the night. T-max of 98.6. She responded great to diuresis post Lasix, negative more than 3.3 L over the last 24 hours. She remains on fentanyl drip, lethargic, easily arousable. Oxygenation is unchanged. Chest x-ray reviewed, ET tube is in good position, 3 cm above paulo , unchanged bilateral opacities. 08/14: Patient remains intubated, on fentanyl infusion at 250 mcg/hour. T-max of 99.7. Negative almost 1 L over last 24 hours. Being but easily arousable, denies any complaints. On CPAP 12/5 tolerating well. 08/15 Patient is lying in bed in NAD. On BIPAP 01/09 with 50% FIO2. Afebrile. s/p extubation yesterday. 08/16 Patient was placed on BIPAP overnight. Afebrile 08/17 Patient is on 5L oxygen, afebrile. 08/18 No events overnight. Patient used BIPAP for 4 hrs overnight. 08/19 No events overnight. On 5L oxygen. Afebrile 08/20 On 5 L NC, appears tachypneic. Afebrile. 08/21 Says she isn't feeling well today but unable to localize anything specific. Afebrile. No leukocytosis. No chest pain. She appears slightly tachypneic but denies shortness of breath. There is serous drainage around her lumbar drain site that is soaking pads. 08/22: Awake and alert. On nasal cannula. Drainage around lumbar drain site noted. Consult neurosurgery Dr. Rivera who recommends transferring patient to [facility] where she had lumbar surgery. Subjective: 08/23 Drain has no output and not holding suction, leakage of serous fluid around drain site. I had replaced the bulb without improvement. Discussed with [facility] Neurosurgery, Nancy, who is PA for Dr. Jhon Wilson who communicated with Dr. Wilson as well and then called me back. Update provided regarding clinical condition, reason for admission, imaging, labs, presence of large sacral decub ulcers. Recommended patient followup with him when she has completed antibiotic course (daptomycin to be completed 09/09 per ). No need to transfer at this time. Suspects drain can be removed but defers management of drain to Dr. Shirley, plastic surgery. Discussed with Dr. Dela Cruz who is resident with Dr. Shirley. He recommends applying bacitracin ointment around the drain site to try to regain seal. If drain still not holding suction after this, it is okay to remove. Nurse did assist me with rolling the patient and I tried this but was unable to get a good seal with the dependent edema and thin unsubstantial tissue surrounding the drain. The drain was removed. 08/24: On nasal cannula. Unstageable sacral wound. Not in any acute distress. 08/25: Remains on nasal cannula. 09/06: Rapid response called for the patient in respiratory distress, with tachypnea, improving on facemask BiPAP 09/07 Patient is on BIPAP 15/5 with 40% FIO2. CXR this morning improving infiltrate right lung base. Afebrile. Objective Vital Signs Date Time Temp Pulse Resp B/P (MAP) Pulse Ox O2 Delivery O2 Flow Rate FiO2 09/07/17 06:00 81 09/07/17 04:00 98.2 26 110/56 (74) 100 09/07/17 03:11 40 09/06/17 23:00 Bi-Pap 09/06/17 20:30 2.00 Intake and Output 09/07/17 09/07/17 09/08/17 08:00 16:00 00:00 Intake Total 240 ml Output Total 1000 ml Balance -760 ml Result Diagram: 09/06/17 1349 09/07/17 0354 Other Results Laboratory Tests Test 09/06/17 13:49 09/06/17 15:06 09/06/17 17:20 09/06/17 22:01 White Blood Count 9.5 TH/MM3 Red Blood Count 3.22 MIL/MM3 Hemoglobin 10.5 GM/DL Hematocrit 30.3 % Mean Corpuscular Volume 94.3 FL Mean Corpuscular Hemoglobin 32.6 PG Mean Corpuscular Hemoglobin Concent 34.5 % Red Cell Distribution Width 16.8 % Platelet Count 300 TH/MM3 Mean Platelet Volume 8.8 FL Neutrophils (%) (Auto) 85.8 % Lymphocytes (%) (Auto) 4.4 % Monocytes (%) (Auto) 7.9 % Eosinophils (%) (Auto) 0.9 % Basophils (%) (Auto) 1.0 % Neutrophils # (Auto) 8.2 TH/MM3 Lymphocytes # (Auto) 0.4 TH/MM3 Monocytes # (Auto) 0.8 TH/MM3 Eosinophils # (Auto) 0.1 TH/MM3 Basophils # (Auto) 0.1 TH/MM3 CBC Comment DIFF FINAL Differential Comment Hematology Comments Blood Urea Nitrogen 41 MG/DL Creatinine 0.83 MG/DL Random Glucose 166 MG/DL Calcium Level 9.0 MG/DL Sodium Level 138 MEQ/L Potassium Level 4.7 MEQ/L Chloride Level 99 MEQ/L Carbon Dioxide Level 32.5 MEQ/L Anion Gap 7 MEQ/L Estimat Glomerular Filtration Rate 67 ML/MIN Blood Gas Puncture Site RT RADIAL RT RADIAL Blood Gas Patient Temperature 98.6 98.6 Blood Gas HCO3 33 mmol/L 32 mmol/L Blood Gas Base Excess 8.3 mmol/L 7.4 mmol/L Blood Gas Oxygen Saturation 93 % 96 % Arterial Blood pH 7.45 7.44 Arterial Blood Partial Pressure CO2 48 mmHg 48 mmHg Arterial Blood Partial Pressure O2 77 mmHg 122 mmHg Arterial Blood Oxygen Content 14.2 Vol % 13.7 Vol % Arterial Blood Carboxyhemoglobin 2.2 % 2.1 % Arterial Blood Methemoglobin 1.1 % 1.1 % Blood Gas Hemoglobin 10.8 G/DL 10.0 G/DL Oxygen Delivery Device NASAL CANNULA BIPAP Blood Gas Liter Flow 2 L/M Blood Gas Ventilator Setting 15/5/ 40% Blood Gas Inspired Oxygen 40 % Test 09/06/17 23:30 09/07/17 03:54 09/07/17 05:39 Blood Urea Nitrogen 40 MG/DL Creatinine 0.71 MG/DL Random Glucose 63 MG/DL Total Protein 7.0 GM/DL Albumin 2.1 GM/DL Calcium Level 8.6 MG/DL Phosphorus Level 3.5 MG/DL Magnesium Level 2.0 MG/DL Alkaline Phosphatase 170 U/L Aspartate Amino Transf (AST/SGOT) 33 U/L Alanine Aminotransferase (ALT/SGPT) 36 U/L Total Bilirubin 1.0 MG/DL Sodium Level 138 MEQ/L Potassium Level 4.8 MEQ/L Chloride Level 102 MEQ/L Carbon Dioxide Level 24.7 MEQ/L Anion Gap 11 MEQ/L Estimat Glomerular Filtration Rate 80 ML/MIN Blood Gas Puncture Site RT BRACHIAL Blood Gas Patient Temperature 98.6 Blood Gas HCO3 31 mmol/L Blood Gas Base Excess 6.6 mmol/L Blood Gas Oxygen Saturation 96 % Arterial Blood pH 7.42 Arterial Blood Partial Pressure CO2 49 mmHg Arterial Blood Partial Pressure O2 146 mmHg Arterial Blood Oxygen Content 12.6 Vol % Arterial Blood Carboxyhemoglobin 1.5 % Arterial Blood Methemoglobin 1.4 % Blood Gas Hemoglobin 9.1 G/DL Oxygen Delivery Device BIPAP Blood Gas Ventilator Setting [id number] Blood Gas Inspired Oxygen 40 % Imaging Last Impressions Chest X-Ray 09/07/17 0000 Signed Impressions: CONCLUSION: Improving infiltrate in the right lung base. Lung Scan-VQ Nuclear Medicine 09/06/17 0000 Signed Impressions: CONCLUSION: Low probability for pulmonary embolus. The ventilation portion study is comprom ised. There is much of the aerosolized material still within the patient's mout h. Lower Extremity Ultrasound 09/05/17 0000 Signed Impressions: CONCLUSION: 1. No evidence of DVT. Lumbar Spine CT 08/21/17 0000 Signed Impressions: Service Date/Time: Monday, August 21, 2017 20:47 - CONCLUSION: 1. Postsurgical features of removal of posterior fixation hardware and placement of anterior fixation hardware at L4-5 and S1 with laminectomy at L4. 2. Surgical drain extends to the mid L4 level in the posterior lumbar soft tissues. There is low density soft tissue stranding and fluid measuring up to 2.7 cm and thickness extending just caudal from the surgical drain without peripherally enhancing focal fluid collection. Librado Hernandez MD Abdomen/Pelvis CT 08/04/17 0000 Signed Impressions: Service Date/Time: August 13:46 - CONCLUSION: 1. There is stool diffusely throughout the colon suggesting constipation. 2. The solid organs of the abdomen are grossly intact. 3. No free air free fluid seen within the abdomen. No abscess is identified. 4. Small amount of free fluid within the abdomen. 5. Bilateral pleural effusions and consolidation. 6. Cardiomegaly. 7. 2 mm nonobstructing stone in the lower pole collecting system of the right kidney. 8. Anasarca. Mil Toro MD Abdomen Fluoroscopy 08/04/17 0000 Signed Impressions: Service Date/Time: August 17:00 - CONCLUSION: Uncomplicated nasoenteric suction type catheter (NGT) placement as above. Librado Hernandez MD Procedures 08/04 -placement of NG tube IR Objective Remarks GENERAL: 76-year-old female on BIPAP. Significantly kyphotic. SKIN: Warm and dry. The surgical incision is well healed. There is a 7cm x 7cm sacral decubitus ulcer with eschar on the right side of sacrum and another 7cm x 6 cm eschar on the left sacrum. HEAD: Normocephalic. EYES: No scleral icterus. No injection or drainage. NECK: Supple, trachea midline. No JVD or lymphadenopathy. CARDIOVASCULAR: Regular rate and rhythm without murmurs, gallops, or rubs. RESPIRATORY: B/L equal air entry GASTROINTESTINAL: Abdomen soft, non-tender, nondistended. Bowel sounds present. MUSCULOSKELETAL: No cyanosis, trace edema. Neuro: Alert awake, following commands. Date of Insertion: August 04, 2017 A/P Problem List: (1) Afib ICD Code: I48.91 - Unspecified atrial fibrillation Status: Acute (2) EMIR (acute kidney injury) ICD Code: N17.9 - Acute kidney failure, unspecified Status: Acute (3) CKD (chronic kidney disease) stage 4, GFR 15-29 ml/min ICD Code: N18.4 - Chronic kidney disease, stage 4 (severe) Status: Acute (4) Renal insufficiency ICD Code: N28.9 - Disorder of kidney and ureter, unspecified Status: Acute (5) Chronic pain ICD Code: G89.29 - Other chronic pain Status: Acute (6) Atrial fibrillation with RVR ICD Code: I48.91 - Unspecified atrial fibrillation Status: Acute (7) Hyperkalemia ICD Code: E87.5 - Hyperkalemia Status: Acute (8) Severe sepsis ICD Code: A41.9 - Sepsis, unspecified organism; R65.20 - Severe sepsis without septic shock (9) Metabolic acidosis ICD Code: E87.2 - Acidosis Status: Resolved (10) Hypoglycemia ICD Code: E16.2 - Hypoglycemia, unspecified Status: Acute (11) Cardiomegaly ICD Code: I51.7 - Cardiomegaly Status: Acute Assessment and Plan Neuro/Psych: Chronic pain syndrome Status post removal of lumbar/sacral L5/S1 hardware 06/19 Chronic opioid use Monitor neuro status, avoid sedatives KAY drain removed 08/23 after discussion with [facility] neurosurgery, Dr. Wilson and plastics Dr. Dela Cruz (resident for Dr. Shirley). Dr. Wilson requests followup in Neurosurgery clinic sometime after antibiotics completed (daptomycin stop date planned for 09/09). Respiratory: Acute hypercapnic respiratory failure Mild pulmonary hypertension COPD/asthma Continue with oxygen keep sats >92% Ipratropium aerosols every 6 hours Albuterol allergy Solumederol 40mg IV daily. Cardiovascular: A. fib RVR-resolved History of essential hypertension Chronic systolic congestive heart failure Chronic atrial fibrillation Monitor HR and BP keep MAP>65mmHg On Cardizem 60 mg Q6, Lopressor 50mg Q12, Hydralazine 50mg Q8 08/05 Echo- The left ventricular systolic function is moderately reduced with an EF 40-45%. Dyskinetic apical cap wall motion. The right ventricle is moderately dilated. Moderate mitral valve regurgitation. Aortic valve sclerosis is present. There is mild to moderate tricuspid valve regurgitation. There is estimated mild pulmonary hypertension present (range 40-50 mmHg). On Coumadin, dosing per pharmacy as per below. Renal: Acute renal insufficiency incentive chronic kidney disease stage IV Right renal stone/no hydronephrosis Metabolic alkalosis Monitor renal function, I/O's, electrolytes replacement per protocol FEN/GI: On PO diet Famotidine 10 mg twice daily for GI prophylaxis. Docusate sodium/senna 1 tablet twice daily, lactulose 30 cc twice daily for bowel regimen Heme/ID: Anemia of chronic disease Thrombocytopenia Leukocytosis MRSA Discitis Chronic warfarin use Funguria Sacral decubitus ulcers - wound care consulted.. Continue daptomycin. ID is following. Daptomycin stop date 09/09. Followup with [facility] NSG some time after that. Drain was removed 08/23. Coumadin per pharmacy. Medical records release obtained for medical records at [facility]/[place] and [facility] - The patient has a history of recent surgery at [facility] in [place]. She underwent removal of hardware from the lumbosacral spine L1-S1 because of exposed loosened hardware from prior surgery. She reportedly had surgery of the lumbosacral spine 10 years prior. The surgery at [facility] was on 06/27. Intraoperative culture reportedly had MRSA. She was put on antibiotics by infectious disease to complete on 07/29/2017. She was receiving intravenous vancomycin. The patient completed the course of the vancomycin. There is a notation in the medical record that she is ALLERGIC TO VANCOMYCIN. She is currently on daptomycin. She was seen by infectious disease physician at [facility] and reportedly will be in need of IV antibiotics for 6 weeks because of osteomyelitis of the lumbar spine. 5/5 UTI -Denise- 5/3- Blood Cultures -NGTD Endocrine: SSI for glycemic control -- SSI Prophylaxis: GI Prophylaxis Famotidine BID DVT Prophylaxis - warfarin for a fib will also provide DVT prophylaxis. -- SCDs. Lines: Peripheral IV's Palliative care is following Addendum: Patient is on 4L oxygen with sats 100% appears hemodynamically stable. CXR today showed improving infiltrate right lung base. Will sign off and transfer care to [facility]. Level 2 Humberto Calabrese MD Sep 07, 2017 07:28
[2017-09-07] MEDS: CHLORHEXIDINE 0.12% (ORAL KIT) 15 ML CUP MT SCH ×2 (08:00→21:05)
[2017-09-07] MEDS: INSULIN NovoLIN REGULAR SUPPLEMENTAL SCALE SQ SCH ×4 (09:00→21:10)
[2017-09-07] MEDS: MUPIROCIN 2% OINT 1 APPLIC/GM SYR EACH NARE SCH ×2 (09:00→21:00)
[2017-09-07 10:00] LABS: AUTOMATED NEUTROPHIL # 6.6 TH/MM3 (1.8-7.7); BASOPHIL % 0.5 % (0.0-2.0); EOSINOPHIL % 0.4 % (0.0-4.0); HEMATOCRIT 27.9 % (35.0-46.0); HEMOGLOBIN 9.3 GM/DL (11.6-15.3); LYMPH % 4.7 % (9.0-44.0); LYMPHOCYTE # 0.4 TH/MM3 (1.0-4.8); MEAN CELL VOLUME 97.3 FL (80.0-100.0); MEAN CORPUSCULAR HEMOGLOBIN 32.5 PG (27.0-34.0); MEAN CORPUSCULAR HGB CONC 33.4 % (32.0-36.0); MEAN PLATELET VOLUME 8.2 FL (7.0-11.0); MONO % 6.6 % (0.0-8.0); MONOCYTE # 0.5 TH/MM3 (0-0.9); NEUT % 87.8 % (16.0-70.0); PLATELET COUNT 272 TH/MM3 (150-450); RED BLOOD COUNT 2.87 MIL/MM3 (4.00-5.30); RED CELL DISTRIBUTION WIDTH 17.7 % (11.6-17.2); WHITE BLOOD COUNT 7.5 TH/MM3 (4.0-11.0)
[2017-09-07 10:17] LABS: INTERNATIONAL NORMALIZED RATIO 1.5 RATIO; PROTHROMBIN TIME - PATIENT 15.1 SEC (9.8-11.6)
[2017-09-07] MEDS: MORPHINE SULFATE ORAL SOLN 10 MG/0.5 ML SYRINGE PO PRN ×2 (10:41→14:54)
[2017-09-07] MEDS: FAMOTIDINE 20 MG TAB PO SCH ×2 (10:42→21:10)
[2017-09-07] MEDS: DOCUSATE SODIUM 50 MG/SENNA 8.6 MG TAB PO SCH ×2 (10:42→21:10)
[2017-09-07] MEDS: ZINC SULFATE 220 MG CAP PO SCH (10:42)
[2017-09-07] MEDS: ASCORBIC ACID 500 MG TAB PO SCH (10:43)
[2017-09-07] MEDS: LACTULOSE SYRUP 20 GM/30 ML CUP PO SCH ×2 (10:43→21:08)
[2017-09-07] MEDS: METOPROLOL TARTRATE 50 MG TAB PO SCH ×2 (10:43→21:00)
[2017-09-07] MEDS: methylPREDNISolone SOD SUCC 40 MG/1 ML VIAL IV PUSH SCH (10:43)
--- NOTE | 2017-09-07 11:35 | PD.WCN.NOT ---
Wound Consult Additional Information: Attempted to see patient for follow up sacral unstageable pressure injury and evaluation of wound on lower back. RN [facility] is off the floor. Will attempt again when nurse is available. Karina Tomlin [facility] Sep 07, 2017 11:35
[2017-09-07] MEDS: DAPTOmycin INJ 500 MG in SODIUM CHLORIDE 0.9% INJ 100 ML IV SCH (12:29)
[2017-09-07] MEDS: CYCLOBENZAPRINE HCL 10 MG TAB PO PRN (12:29)
--- NOTE | 2017-09-07 16:56 | HHI.PR ---
Subjective Remarks ALERT NO DISTRESS ON O2 NC Objective GENERAL: SKIN: Warm and dry. HEAD: Atraumatic. Normocephalic. EYES: Pupils equal and round. No scleral icterus. No injection or drainage. ENT: No nasal bleeding or discharge. Mucous membranes pink and moist. NECK: Trachea midline. No JVD. CARDIOVASCULAR: Regular rate and rhythm. RESPIRATORY: No accessory muscle use. Clear to auscultation. Breath sounds equal bilaterally. GASTROINTESTINAL: Abdomen soft, non-tender, nondistended. Hepatic and splenic margins not palpable. MUSCULOSKELETAL: Extremities without clubbing, cyanosis, or edema. No obvious deformities. NEUROLOGICAL: Awake and alert. No obvious cranial nerve deficits. Motor grossly within normal limits. Five out of 5 muscle strength in the arms and legs. Normal speech. PSYCHIATRIC: Appropriate mood and affect; insight and judgment normal. Vital Signs Date Time Temp Pulse Resp B/P (MAP) Pulse Ox O2 Delivery O2 Flow Rate FiO2 09/07/17 14:00 82 27 95/55 (68) 100 09/07/17 14:00 82 09/07/17 13:00 87 29 107/56 (73) 100 09/07/17 13:00 87 09/07/17 12:00 98.2 86 30 111/56 (74) 99 09/07/17 12:00 86 09/07/17 11:00 95 09/07/17 11:00 95 28 116/56 (76) 100 09/07/17 10:00 96 09/07/17 10:00 96 29 104/50 (68) 94 09/07/17 09:00 93 09/07/17 09:00 93 30 109/55 (73) 100 09/07/17 08:00 85 09/07/17 08:00 85 29 104/59 (74) 100 09/07/17 07:44 100 Nasal Cannula 4.00 09/07/17 07:00 100 Bi-Pap 40 09/07/17 07:00 98.3 88 26 118/66 (83) 100 09/07/17 07:00 88 09/07/17 06:00 81 09/07/17 04:00 98.2 83 26 110/56 (74) 100 09/07/17 04:00 83 09/07/17 03:11 100 40 09/07/17 02:00 82 09/07/17 00:04 100 40 09/07/17 00:00 90 09/07/17 00:00 99.5 90 32 127/64 (85) 100 09/06/17 23:00 100 Bi-Pap 40 09/06/17 22:48 100 40 09/06/17 22:45 99.4 84 20 125/64 (84) 09/06/17 22:16 99.7 84 36 137/63 (87) 100 09/06/17 22:05 35 137/63 (87) 09/06/17 22:00 97 40 09/06/17 21:01 98 40 09/06/17 20:30 89 09/06/17 20:30 Nasal Cannula 2.00 40 I/O 09/06/17 09/06/17 09/06/17 09/07/17 09/07/17 09/07/17 07:00 15:00 23:00 07:00 15:00 23:00 Intake Total 240 ml Output Total 800 ml 250 ml 100 ml 1000 ml Balance -800 ml -250 ml -100 ml -760 ml Intake Oral 240 ml Output Urine Total 800 ml 250 ml 100 ml 1000 ml # Bowel Movements 0 Result Diagram: 09/07/17 0923 09/07/17 0354 Objective Remarks GENERAL: SKIN: Warm and dry. HEAD: Atraumatic. Normocephalic. EYES: Pupils equal and round. No scleral icterus. No injection or drainage. ENT: No nasal bleeding or discharge. Mucous membranes pink and moist. NECK: Trachea midline. No JVD. CARDIOVASCULAR: Regular rate and rhythm. RESPIRATORY: No accessory muscle use. Clear to auscultation. Breath sounds equal bilaterally. GASTROINTESTINAL: Abdomen soft, non-tender, nondistended. Hepatic and splenic margins not palpable. MUSCULOSKELETAL: Extremities without clubbing, cyanosis, or edema. No obvious deformities. NEUROLOGICAL: Awake and alert. No obvious cranial nerve deficits. Motor grossly within normal limits. Five out of 5 muscle strength in the arms and legs. Normal speech. PSYCHIATRIC: Appropriate mood and affect; insight and judgment normal. Assessment and Plan Assessment and Plan ASS RESPIRATORY FAILURE PNEUMONIA CXRAY CLEARING PLAN O2 NEEDED ANTIBIOTICS INCREASE ACTIVITY Claudia Taylor MD Sep 07, 2017 16:56
[2017-09-07] MEDS: WARFARIN SOD 2 MG TAB PO SCH (19:14)
[2017-09-08] VITALS (19 sets, daily range): BP systolic 111–132; BP diastolic 56–73; PULSE 78–111; RESP 16–24; TEMP 97.8–99.3; O2SAT 94–100
[2017-09-08] MEDS: DILTIAZEM HCL 60 MG TAB PO SCH ×4 (00:30→17:17)
[2017-09-08 03:52] LABS: AUTOMATED NEUTROPHIL # 5.9 TH/MM3 (1.8-7.7); HEMATOCRIT 27.1 % (35.0-46.0); HEMOGLOBIN 9.1 GM/DL (11.6-15.3); LYMPH % 1.9 % (9.0-44.0); LYMPHOCYTE # 0.1 TH/MM3 (1.0-4.8); MEAN CELL VOLUME 96.3 FL (80.0-100.0); MEAN CORPUSCULAR HEMOGLOBIN 32.2 PG (27.0-34.0); MEAN CORPUSCULAR HGB CONC 33.4 % (32.0-36.0); MEAN PLATELET VOLUME 7.8 FL (7.0-11.0); MONO % 1.2 % (0.0-8.0); MONOCYTE # 0.1 TH/MM3 (0-0.9); NEUT % 96.9 % (16.0-70.0); PLATELET COUNT 264 TH/MM3 (150-450); RED BLOOD COUNT 2.82 MIL/MM3 (4.00-5.30); RED CELL DISTRIBUTION WIDTH 17.4 % (11.6-17.2); WHITE BLOOD COUNT 6.1 TH/MM3 (4.0-11.0)
[2017-09-08 03:57] LABS: INTERNATIONAL NORMALIZED RATIO 1.6 RATIO; PROTHROMBIN TIME - PATIENT 16.2 SEC (9.8-11.6)
[2017-09-08] MEDS: CHLORHEXIDINE GLUCONATE 2 % 1 PACK (2 CLOTHS) TOP SCH (04:00)
[2017-09-08] MEDS: RESP: ALBUTEROL 2.5 MG/IPRATROPIUM 0.5 MG NEB (SCH) NEB ×4 (04:09→21:23)
[2017-09-08] MEDS: INSULIN NovoLIN REGULAR SUPPLEMENTAL SCALE SQ SCH ×6 (04:30→20:00)
[2017-09-08 04:36] LABS: BICARBONATE 28.8 MEQ/L (21.0-32.0); CALCIUM 8.3 MG/DL (8.5-10.1); CREATININE 0.87 MG/DL (0.50-1.00); MAGNESIUM 2.2 MG/DL (1.5-2.5)
[2017-09-08] MEDS: ARTIFICIAL TEARS OPTH SOLN 15 ML BTL EACH EYE SCH ×3 (06:00→22:00)
[2017-09-08] MEDS: hydrALAZINE HCL 50 MG TAB PO SCH ×3 (06:21→22:00)
[2017-09-08] MEDS: SODIUM CHLORIDE 0.9% FLUSH 10 ML FLUSH IV FLUSH SCH ×5 (06:22→22:40)
[2017-09-08] MEDS: CHLORHEXIDINE 0.12% (ORAL KIT) 15 ML CUP MT SCH ×2 (08:00→19:57)
--- NOTE | 2017-09-08 08:15 | HHI.PR ---
Subjective Remarks on BiPaP. denies pain. no fever. d/w the RN and no acute issues over night. Objective Vitals Vital Signs Date Time Temp Pulse Resp B/P (MAP) Pulse Ox O2 Delivery O2 Flow Rate FiO2 09/08/17 06:00 104 09/08/17 04:54 100 35 09/08/17 04:00 97.8 86 17 121/62 (81) 100 09/08/17 04:00 86 09/08/17 02:22 100 30 09/08/17 02:00 78 09/08/17 00:00 98.0 83 18 111/56 (74) 100 09/08/17 00:00 83 09/07/17 22:31 99 30 09/07/17 22:00 91 09/07/17 20:57 100 Nasal Cannula 3.00 09/07/17 20:00 89 09/07/17 20:00 97.9 89 16 114/58 (76) 100 09/07/17 19:00 100 Nasal Cannula 2.00 09/07/17 18:00 81 09/07/17 18:00 81 11 97/51 (66) 100 09/07/17 17:00 79 24 99/58 (72) 100 09/07/17 17:00 79 09/07/17 16:00 98.5 75 26 99/50 (66) 99 09/07/17 16:00 75 09/07/17 15:00 80 25 99/56 (70) 98 09/07/17 15:00 80 09/07/17 14:00 82 27 95/55 (68) 100 09/07/17 14:00 82 09/07/17 13:00 87 29 107/56 (73) 100 09/07/17 13:00 87 09/07/17 12:00 98.2 86 30 111/56 (74) 99 09/07/17 12:00 86 09/07/17 11:00 95 09/07/17 11:00 95 28 116/56 (76) 100 09/07/17 10:00 96 09/07/17 10:00 96 29 104/50 (68) 94 09/07/17 09:00 93 09/07/17 09:00 93 30 109/55 (73) 100 I/O 6/6/18 6/609/07/17 09/08/17 09/08/17 09/08/17 07:00 15:00 23:00 07:00 15:00 23:00 Intake Total 240 ml 720 ml 120 ml Output Total 1000 ml 550 ml 600 ml Balance -760 ml 170 ml -480 ml Intake Oral 240 ml 720 ml 120 ml Output Urine Total 1000 ml 550 ml 600 ml # Bowel Movements 0 1 0 Result Diagram: 09/08/176 09/08/17 0316 Imaging Last Impressions Chest X-Ray 09/07/17 0000 Signed Impressions: CONCLUSION: Improving infiltrate in the right lung base. Lung Scan-VQ Nuclear Medicine 09/06/17 0000 Signed Impressions: CONCLUSION: Low probability for pulmonary embolus. The ventilation portion study is comprom ised. There is much of the aerosolized material still within the patient's mout h. Lower Extremity Ultrasound 09/05/17 0000 Signed Impressions: CONCLUSION: 1. No evidence of DVT. Lumbar Spine CT 08/21/17 0000 Signed Impressions: Service Date/Time: Monday, August 21, 2017 20:47 - CONCLUSION: 1. Postsurgical features of removal of posterior fixation hardware and placement of anterior fixation hardware at L4-5 and S1 with laminectomy at L4. 2. Surgical drain extends to the mid L4 level in the posterior lumbar soft tissues. There is low density soft tissue stranding and fluid measuring up to 2.7 cm and thickness extending just caudal from the surgical drain without peripherally enhancing focal fluid collection. Librado Hernandez MD Abdomen/Pelvis CT 08/04/17 0000 Signed Impressions: Service Date/Time: August 13:46 - CONCLUSION: 1. There is stool diffusely throughout the colon suggesting constipation. 2. The solid organs of the abdomen are grossly intact. 3. No free air free fluid seen within the abdomen. No abscess is identified. 4. Small amount of free fluid within the abdomen. 5. Bilateral pleural effusions and consolidation. 6. Cardiomegaly. 7. 2 mm nonobstructing stone in the lower pole collecting system of the right kidney. 8. Anasarca. Mil Toro MD Abdomen Fluoroscopy 08/04/17 0000 Signed Impressions: Service Date/Time: August 17:00 - CONCLUSION: Uncomplicated nasoenteric suction type catheter (NGT) placement as above. Librado Hernandez MD Objective Remarks GENERAL: on BiPaP CARDIOVASCULAR: Regular rate and regular rhythm without murmurs, gallops, or rubs. RESPIRATORY: Clear to auscultation. Breath sounds equal bilaterally. No wheezes , rales, or rhonchi. GASTROINTESTINAL: Abdomen soft, non-tender, nondistended. Normal, active bowel sounds MUSCULOSKELETAL: Extremities without clubbing, cyanosis, or edema. NEURO: Alert & Oriented x4 to person, place, time, situation. Moves all ext x4 Procedures 08/04 -placement of NG tube IR Medications and IVs Inpatient Medications Acetaminophen (Tylenol 650 Mg/ 20 ml Liq) 650 mg Q6H PRN PO fever; Start at 14:00 Acetaminophen (Tylenol Supp) 650 mg ONCE ONCE RECTAL Last administered on at 16:57; Start 08/03/17 at 16:45; Stop 08/03/17 at 16:46; Status DC Acetaminophen (Tylenol) 650 mg Q6H PRN PO PAIN 1-5 AND/OR FEVER >101F; Start at 20:00; Stop 08/07/17 at 14:02; Status DC Acetazolamide Sodium (Diamox Inj) 250 mg Q4HR IV PUSH Last administered on at 03:40; Start 09/07/17 at 00:00; Stop 09/07/17 at 07:29; Status DC Albumin Human 100 ml @ 60 mls/hr ONCE ONCE IV Last administered on 08/12/17at 08:10; Start 08/12/17 at 07:30; Stop 08/12/17 at 09:09; Status DC Albuterol/ Ipratropium (Duoneb Neb) 1 ampule Q2HR NEB PRN NEB sob; Start at 00:15 Artificial Tears (Tears Naturale Opth Soln) 1 drop Q8HR EACH EYE Last administered on 09/06/17at 05:09; Start 08/07/17 at 14:00 Ascorbic Acid (Vitamin C) 500 mg DAILY PO Last administered on 09/07/17at 10:43; Start 08/04/17 at 09:00 Aztreonam 1000 mg/ Sodium Chloride 100 ml @ 200 mls/hr Q12H IV Last administered on 08/16/17at 05:00; Start 08/04/17 at 17:00; Stop 08/16/17 at 13:12 ; Status DC Bacitracin (Baciguent Oint) 1 applic ONCE ONCE TOPICAL Last administered on at 19:01; Start 08/23/17 at 18:30; Stop 08/23/17 at 18:31; Status DC Bisacodyl (Dulcolax Supp) 10 mg DAILY PRN RECTAL SEVERE CONSITIPATION; Start at 20:00 Calcium Gluconate 1 gm/Dextrose 110 ml @ 110 mls/hr ONCE ONCE IV Last administered on 08/11/17at 08:52; Start 08/11/17 at 08:00; Stop 08/11/17 at 08:59 ; Status DC Calcium Gluconate 1 gm/Sodium Chloride 110 ml @ 110 mls/hr ONCE ONCE IV Last administered on 08/10/17at 10:45; Start 08/10/17 at 10:15; Stop 08/10/17 at 11:14; Status DC Calcium Gluconate 2 gm/Sodium Chloride 120 ml @ 120 mls/hr ONCE ONCE IV Last administered on 08/06/17at 15:53; Start 08/06/17 at 16:00; Stop 08/06/17 at 16:59; Status DC Ceftriaxone Sodium 1000 mg/ Sodium Chloride 100 ml @ 200 mls/hr Q24H IV Last administered on 08/04/17at 12:28; Start 08/04/17 at 12:00; Stop 08/04/17 at 16:00; Status DC Chlorhexidine Gluconate (Chlorhexidine 2% Cloth) 3 pack UNSCH PRN TOP HYGIENIC CARE; Start 08/03/17 at 20:00 Chlorhexidine Gluconate (Peridex 0.12% Liq) 15 ml BID@08,20 MT Last administered on 09/07/17at 21:05; Start 08/04/17 at 20:00 Clindamycin Phosphate 900 mg/ Sodium Chloride 106 ml @ 200 mls/hr ONCE STAT IV Last administered on 08/03/17at 19:39; Start 08/03/17 at 18:43; Stop 08/03/17 at 19:14; Status DC Cyclobenzaprine HCl (Flexeril) 10 mg Q8HR PRN PO Muscle Cramps Last administered on 09/07/17at 12:29; Start 08/03/17 at 19:45 Daptomycin (Cubicin Inj) 560 mg DAILY IV ; Start 08/04/17 at 09:00; Stop 08/04/17 at 09:24; Status DC Daptomycin 500 mg/ Sodium Chloride 100 ml @ 200 mls/hr Q24H IV Last administered on 09/07/17at 12:29; Start 08/17/17 at 11:00 Dexamethasone Sodium Phosphate (Decadron Inj) 4 mg Q6HR IV PUSH Last administered on 08/10/17at 04:58; Start 08/09/17 at 12:00; Stop 08/10/17 at 11:59; Status DC Dextrose (D50w (Vial) Inj) 50 ml UNSCH PRN IV PUSH HYPOGLYCEMIA-SEE COMMENTS; Start 08/15/17 at 16:00 Digoxin (Lanoxin Inj) 0.125 mg ONCE ONCE IV PUSH Last administered on at 09:52; Start 08/04/17 at 09:30; Stop 08/04/17 at 09:31; Status DC Diltiazem HCl (Cardizem) 60 mg Q6HR PO Last administered on 09/08/17at 06:21; Start 08/16/17 at 12:00 Famotidine (Pepcid Inj) 10 mg Q12HR IV PUSH Last administered on 08/05/17at 08:28 ; Start 08/03/17 at 21:00; Stop 08/05/17 at 10:14; Status DC Famotidine (Pepcid) 10 mg BID PO Last administered on 09/07/17at 21:10; Start 08/05/17 at 21:00 Fentanyl Citrate 250 ml @ 5 mls/hr TITRATE PRN IV SEDATION Last administered on 08/14/17at 10:30; Start 08/04/17 at 10:30; Stop 08/15/17 at 11:07; Status DC Fluconazole/ Sodium Chloride 100 ml @ 100 mls/hr Q24H IV Last administered on 08/14/17at 16:17; Start 08/06/17 at 15:00; Stop 08/15/17 at 13:52; Status DC Fluticasone Propionate (Flonase Harvey Spr) 1 spray Q12HR EACH NARE Last administered on 08/07/17at 09:08; Start 08/03/17 at 21:00; Status Future Hold Furosemide (Lasix Inj) 20 mg Q12H IV PUSH Last administered on 08/24/17at 10:40 ; Start 08/23/17 at 23:45; Stop 08/24/17 at 11:46; Status DC Glucagon (Glucagon Inj) 1 mg UNSCH PRN OTHER HYPOGLYCEMIA-SEE COMMENTS; Start 08/15/17 at 16:00 Heparin Sodium (Porcine) (Heparin Inj) 5,000 units Q8H SQ Last administered on 08/04/17at 05:13; Start 08/03/17 at 20:00; Stop 08/15/17 at 11:07; Status DC Hydralazine HCl (Apresoline Inj) 10 mg Q1HR PRN IV PUSH SBP>170, DBP>90 Last administered on 08/13/17at 01:41; Start 08/08/17 at 15:15 Hydralazine HCl (Apresoline) 50 mg Q8HR PO Last administered on 09/08/17at 06:21 ; Start 08/19/17 at 08:30 Insulin Human Regular (NovoLIN R SUPPLEMENTAL SCALE) 1 Q4H SQ Last administered on 09/08/17at 04:30; Start 09/07/17 at 09:00 Ipratropium [place] (Atrovent Neb) 0.5 mg Q6HR NEB NEB Last administered on at 18:00; Start 08/04/17 at 16:00; Stop 08/27/17 at 09:02; Status DC Labetalol HCl (Trandate Inj) 10 mg Q1HR PRN IV PUSH SBP>170, DBP>90, HR>65 Last administered on 08/17/17at 11:35; Start 08/08/17 at 15:15 Lactulose (Lactulose Liq) 30 ml Q12HR PO Last administered on 09/07/17at 21:08; Start 08/07/17 at 21:00 Magnesium Hydroxide (Milk Of Magnesia Liq) 30 ml Q12H PRN PO Mild constipation ; Start 08/03/17 at 20:00 Magnesium Oxide (Mag-Ox) 800 mg UNSCH PRN PO For Magnesium 1.2 - 1.6 mg/dL; Start 08/16/17 at 09:45; Stop 08/28/17 at 15:32; Status DC Magnesium Sulfate 2 gm/Sodium Chloride 100 ml @ 50 mls/hr UNSCH PRN IV For Magnesium 1.2 - 1.6 mg/dL; Start 08/16/17 at 09:45; Stop 08/28/17 at 15:32; Status DC Magnesium Sulfate 4 gm/Sodium Chloride 100 ml @ 50 mls/hr UNSCH PRN IV For Magnesium 0.9 - 1.1 mg/dL; Start 08/16/17 at 09:45; Stop 08/28/17 at 15:32; Status DC Magnesium Sulfate/ Dextrose 100 ml @ 100 mls/hr Q1H IV Last administered on 08/06/17at 06:42; Start 08/06/17 at 06:15; Stop 08/06/17 at 08:14; Status DC Meropenem 1000 mg/ Sodium Chloride 100 ml @ 200 mls/hr Q8H IV Last administered on 08/22/17at 08:33; Start 08/19/17 at 18:00; Stop 08/22/17 at 11:39 ; Status DC Methylprednisolone Sodium Succinate (SoluMEDROL INJ) 40 mg DAILY IV PUSH Last administered on 09/07/17at 10:43; Start 09/07/17 at 09:00 Metoprolol Tartrate (Lopressor Inj) 5 mg Q5M PRN IV PUSH HR > 100 Last administered on 08/15/17at 03:21; Start 08/03/17 at 16:45 Metoprolol Tartrate (Lopressor) 50 mg Q12HR PO Last administered on 09/07/17at 10 :43; Start 08/17/17 at 21:00 Miscellaneous (Pill Splitter) 1 ea UNSCH PRN OTHER SEE LABEL COMMENTS; Start at 14:15 Miscellaneous Information ([facility]) 1 Q361D XX Last administered on 08/03/17at 22:46; Start 08/03/17 at 20:00 Miscellaneous Medication (ASP Crit: Doc allergy to Penicillin/ Cephalosp) 1 UNSCH X1 PRN .XX PHARMACY DOCUMENTATION; Start 08/19/17 at 16:45; Stop at 16:44; Status DC Miscellaneous Medication ([facility]) 1 UNSCH X1 PRN XX PHARMACY DOCUMENTATION; Start 08/19/17 at 16:45; Stop 08/20/17 at 16:44; Status DC Morphine Sulfate (Morphine Inj) 2 mg Q2H PRN IV PUSH PAIN SCALE 6 TO 10 Last administered on 08/04/17at 05:14; Start 08/03/17 at 20:00; Status Future Hold Morphine Sulfate (Msir) 15 mg Q4H PRN PO Moderate Pain; Start 08/03/17 at 19:45 ; Status Future Hold Morphine Sulfate (Oramorph Sr) 15 mg Q12HR PO Last administered on 08/04/17at 07: 57; Start 08/03/17 at 21:00; Stop 08/15/17 at 11:07; Status DC Morphine Sulfate (Roxanol Liq) 10 mg Q4H PRN PO pain 5-10 Last administered on 09/07/17at 14:54; Start 08/12/17 at 14:15 Mupirocin (Bactroban Nasal 2% Oint) Taper BID EACH NARE Last administered on 09/05/17at 09:20; Start 08/07/17 at 21:00; Stop 08/03/18 at 20:59 Nitroglycerin (Nitroglycerin 2% Oint) 2 inch Q6HR PRN TOPICAL SBP>170, DBP>90; Start 08/08/17 at 15:15 Ondansetron HCl (Zofran Inj) 4 mg Q6H PRN IV PUSH NAUSEA OR VOMITING; Start 08/03/17 at 20:00 Patient Medication Teaching (Coumadin Booklet) 1 ONCE ONCE .XX Last administered on 08/25/17at 16:00; Start 08/25/17 at 16:00; Stop 08/25/17 at 16:01 ; Status DC Pharmacy Profile Note 0 ml @ 0 mls/hr UNSCH OTHER ; Start 08/04/17 at 03:45 Phytonadione 10 mg/Sodium Chloride 51 ml @ 102 mls/hr ONCE ONCE IV Last administered on 08/05/17at 16:01; Start 08/05/17 at 16:00; Stop 08/05/17 at 16:29; Status DC Potassium Phosphate (K-Phos) 2,000 mg UNSCH PRN PO/TUBE SEE LABEL COMMENTS; Start 08/16/17 at 09:45; Stop 08/28/17 at 15:32; Status DC Potassium Phosphate 30 mmol/ Sodium Chloride 260 ml @ 42 mls/hr UNSCH PRN IV SEE LABEL COMMENTS Last administered on 08/17/17at 12:24; Start 08/16/17 at 09:45 ; Stop 08/28/17 at 15:32; Status DC Potassium Bicarb/ Potassium Chloride (K-Lyte Cl Eff) 50 meq UNSCH PRN PO For Potassium 3.3 - 3.5 mEq/L Last administered on 08/20/17at 21:40; Start 08/16/17 at 09:45; Stop 08/28/17 at 15:32; Status DC Potassium Chloride 100 ml @ 50 mls/hr Q2H PRN IV For Potassium 3.3 - 3.5 mEq/L ; Start 08/16/17 at 09:45; Stop 08/28/17 at 15:32; Status DC Propofol (Diprivan 200 Mg/20 ml Inj) 100 mg ONCE ONCE IV Last administered on 08/04/17at 10:30; Start 08/04/17 at 10:30; Stop 08/04/17 at 10:31; Status DC Rocuronium [place] (Zemuron Inj) 50 mg BOLUS ONCE IV Last administered on at 10:30; Start 08/04/17 at 10:30; Stop 08/04/17 at 10:31; Status DC Senna/Docusate Sodium (Dina-Colace) 1 tab BID PO Last administered on 09/07/17at 21:10; Start 08/03/17 at 21:00 Sennosides (Senokot) 17.2 mg Q12H PRN PO Moderate constipation; Start 08/03/17 at 20:00 Sodium Bicarbonate 150 meq/Dextrose 1,000 ml @ 75 mls/hr [id number] IV Last administered on 08/05/17at 13:13; Start 08/04/17 at 10:00; Stop 08/05/17 at 16:42; Status DC Sodium Bicarbonate (Sodium Bicarbonate 8.4% Inj) 50 meq ONCE ONCE IV PUSH Last administered on 08/04/17at 09:15; Start 08/04/17 at 09:15; Stop 08/04/17 at 09: 17; Status DC Sodium Chloride 250 ml @ 15 mls/hr ONCE ONCE IV Last administered on at 13:30; Start 09/02/17 at 06:30; Stop 09/02/17 at 23:09; Status DC Sodium Chloride (NS Flush) 2 ml BID IV FLUSH Last administered on 09/07/17at 21: 08; Start 08/03/17 at 21:00 Sodium Phosphate 30 mmol/Sodium Chloride 250 ml @ 42 mls/hr UNSCH PRN IV For Phosphorus < 2.5 mg/dL; Start 08/16/17 at 09:45; Stop 08/28/17 at 15:32; Status DC Temazepam (Restoril) 15 mg HS PRN PO INSOMNIA; Start 08/03/17 at 20:00; Stop 08/04/17 at 09:21; Status DC Warfarin Sodium (Coumadin) 2 mg DAILY@1600 PO Last administered on 09/07/17at 19: 14; Start 09/07/17 at 16:00 Zinc Sulfate (Zinc Sulfate) 220 mg DAILY PO Last administered on 09/07/17at 10:42 ; Start 08/04/17 at 09:00 Date of Insertion: August 04, 2017 A/P Assessment and Plan A/P Chronic pain syndrome Status post removal of lumbar/sacral L5/S1 hardware 06/19 Chronic opioid use Monitor neuro status, avoid sedatives KAY drain removed 08/23 after discussion with [facility] neurosurgery, Dr. Wilson and plastics Dr. Dela Cruz (resident for Dr. Shirley). Dr. iWlson requests followup in Neurosurgery clinic sometime after antibiotics completed (daptomycin stop date planned for 09/09). Acute hypercapnic respiratory failure Mild pulmonary hypertension COPD/asthma Continue with oxygen keep sats >92% Ipratropium aerosols every 6 hours Albuterol allergy Solumederol 40mg IV daily. A. fib RVR-resolved History of essential hypertension Chronic systolic congestive heart failure Chronic atrial fibrillation On Cardizem 60 mg Q6, continue Lopressor ' decrease the dose to 25mg Q12, Hydralazine 50mg Q8 08/05 Echo- The left ventricular systolic function is moderately reduced with an EF 40-45%. Dyskinetic apical cap wall motion. The right ventricle is moderately dilated. Moderate mitral valve regurgitation. Aortic valve sclerosis is present. There is mild to moderate tricuspid valve regurgitation. There is estimated mild pulmonary hypertension present (range 40-50 mmHg). On Coumadin, dosing per pharmacy as per below. Acute renal insufficiency incentive chronic kidney disease stage IV Right renal stone/no hydronephrosis Metabolic alkalosis Monitor renal function, I/O's, electrolytes replacement per protocol Anemia of chronic disease Thrombocytopenia Leukocytosis MRSA Discitis Chronic warfarin use Funguria Sacral decubitus ulcers - wound care consulted.. Continue daptomycin. ID is following. Daptomycin stop date 09/09. Followup with [facility] some time after that. Drain was removed 08/23. Coumadin per pharmacy. Medical records release obtained for medical records at [facility]/[place] and [facility] - The patient has a history of recent surgery at [facility] in [place]. She underwent removal of hardware from the lumbosacral spine L1-S1 because of exposed loosened hardware from prior surgery. She reportedly had surgery of the lumbosacral spine 10 years prior. The surgery at [facility] was on 06/27. Intraoperative culture reportedly had MRSA. She was put on antibiotics by infectious disease to complete on 07/29/2017. She was receiving intravenous vancomycin. The patient completed the course of the vancomycin. There is a notation in the medical record that she is ALLERGIC TO VANCOMYCIN. She is currently on daptomycin. She was seen by infectious disease physician at [facility] and reportedly will be in need of IV antibiotics for 6 weeks because of osteomyelitis of the lumbar spine. 5/ UTI -Denise- 5/- Blood Cultures -NGTD Endocrine: SSI for glycemic control-- SSI Prophylaxis: GI Prophylaxis Famotidine BID DVT Prophylaxis - warfarin for a fib will also provide DVT prophylaxis. -- SCDs. Discharge Planning dc planning to SNF. Jamie Andres MD Sep 08, 2017 08:15
[2017-09-08] MEDS: DOCUSATE SODIUM 50 MG/SENNA 8.6 MG TAB PO SCH ×2 (08:58→19:59)
[2017-09-08] MEDS: ZINC SULFATE 220 MG CAP PO SCH (08:58)
[2017-09-08] MEDS: ASCORBIC ACID 500 MG TAB PO SCH (08:58)
[2017-09-08] MEDS: FAMOTIDINE 20 MG TAB PO SCH ×2 (08:58→19:59)
[2017-09-08] MEDS: LACTULOSE SYRUP 20 GM/30 ML CUP PO SCH ×2 (08:59→19:58)
[2017-09-08] MEDS: methylPREDNISolone SOD SUCC 40 MG/1 ML VIAL IV PUSH SCH (08:59)
[2017-09-08] MEDS: METOPROLOL TARTRATE 25 MG TAB PO SCH ×2 (08:59→19:59)
[2017-09-08] MEDS: MUPIROCIN 2% OINT 1 APPLIC/GM SYR EACH NARE SCH ×2 (09:01→19:58)
[2017-09-08] MEDS: DAPTOmycin INJ 500 MG in SODIUM CHLORIDE 0.9% INJ 100 ML IV SCH (10:54)
--- NOTE | 2017-09-08 12:51 | PD.WOU.CON ---
Patient Intake Consult Requested by Primary Care Physician Unknown Coded Allergies: albuterol (Verified Allergy, Unknown, 08/03/17) gabapentin (Verified Allergy, Unknown, 08/03/17) ipratropium (Verified Allergy, Unknown, 08/03/17) iron (Verified Allergy, Unknown, 08/03/17) penicillin G (Unverified Allergy, Unknown, 11/16/16) prochlorperazine (Unverified Allergy, Unknown, 11/16/16) vancomycin (Verified Allergy, Unknown, 08/03/17) *MDRO Multi-Drug Resistant Organism (Verified Adverse Reaction, Unknown, ) MRSA (BACK WOUND)-09/17/2016 Vital Signs Date Time Temp Pulse Resp B/P (MAP) Pulse Ox O2 Delivery O2 Flow Rate FiO2 09/08/17 10:00 92 09/08/17 08:27 94 Nasal Cannula 3.00 09/08/17 08:00 98.2 91 20 132/73 (92) 99 09/08/17 08:00 91 09/08/17 07:00 100 Nasal Cannula 2.00 09/08/17 06:00 104 09/08/17 04:54 100 35 09/08/17 04:00 97.8 86 17 121/62 (81) 100 09/08/17 04:00 86 09/08/17 02:22 100 30 09/08/17 02:00 78 09/08/17 00:00 98.0 83 18 111/56 (74) 100 09/08/17 00:00 83 09/07/17 22:31 99 30 09/07/17 22:00 91 09/07/17 20:57 100 Nasal Cannula 3.00 09/07/17 20:00 89 09/07/17 20:00 97.9 89 16 114/58 (76) 100 09/07/17 19:00 100 Nasal Cannula 2.00 09/07/17 18:00 81 09/07/17 18:00 81 11 97/51 (66) 100 09/07/17 17:00 79 24 99/58 (72) 100 09/07/17 17:00 79 09/07/17 16:00 98.5 75 26 99/50 (66) 99 09/07/17 16:00 75 09/07/17 15:00 80 25 99/56 (70) 98 09/07/17 15:00 80 09/07/17 14:00 82 27 95/55 (68) 100 09/07/17 14:00 82 09/07/17 13:00 87 29 107/56 (73) 100 09/07/17 13:00 87 Wound Assessment Wound Information - Wound One 08/24/17: Wound Location: Left upper buttock Wound Length: 4.8cm Wound Width: 5.2cm Wound Depth: unable to ascertain as this is a stable eschar Wound Two 08/24/17 Wound Location: right sacrolumbar area Wound Length: 6.6cm Wound Width: 6.2cm Wound Depth: eschar Lab and Radiology Results Radiology Last Impressions Chest X-Ray 09/07/17 0000 Signed Impressions: CONCLUSION: Improving infiltrate in the right lung base. Lung Scan-VQ Nuclear Medicine 09/06/17 Signed Impressions: CONCLUSION: Low probability for pulmonary embolus. The ventilation portion study is comprom ised. There is much of the aerosolized material still within the patient's mout h. Lower Extremity Ultrasound 09/05/17 0000 Signed Impressions: CONCLUSION: 1. No evidence of DVT. Lumbar Spine CT 08/21/17 0000 Signed Impressions: Service Date/Time: Monday, August 21, 2017 20:47 - CONCLUSION: 1. Postsurgical features of removal of posterior fixation hardware and placement of anterior fixation hardware at L4-5 and S1 with laminectomy at L4. 2. Surgical drain extends to the mid L4 level in the posterior lumbar soft tissues. There is low density soft tissue stranding and fluid measuring up to 2.7 cm and thickness extending just caudal from the surgical drain without peripherally enhancing focal fluid collection. Librado Hernandez MD Abdomen/Pelvis CT 08/04/17 0000 Signed Impressions: Service Date/Time: August 13:46 - CONCLUSION: 1. There is stool diffusely throughout the colon suggesting constipation. 2. The solid organs of the abdomen are grossly intact. 3. No free air free fluid seen within the abdomen. No abscess is identified. 4. Small amount of free fluid within the abdomen. 5. Bilateral pleural effusions and consolidation. 6. Cardiomegaly. 7. 2 mm nonobstructing stone in the lower pole collecting system of the right kidney. 8. Anasarca. Mil Toro MD Abdomen Fluoroscopy 08/04/17 0000 Signed Impressions: Service Date/Time: August 17:00 - CONCLUSION: Uncomplicated nasoenteric suction type catheter (NGT) placement as above. Librado Hernandez MD Assessment/Plan Problem List: (1) Pressure ulcer, unstageable, with eschar (2) Ulcer of right lower extremity (3) Ulcer of left lower extremity (4) Pressure ulcer of buttock, unstageable Ladi Moore MD Sep 08, 2017 12:51
[2017-09-08] MEDS: COLLAGENASE OINT 30 GM TUBE TOPICAL SCH (12:57)
--- NOTE | 2017-09-08 13:52 | PD.WCN.NOT ---
Wound Consult Description: Patient seen for follow up of unstageable pressure injuries and new wound to lumbar area. Communicated with: GOLDY LINTON and Doctor Moore Recommendation: Please obtain wave bed and follow wound care orders written by Doctor Moore Additional Information: Patient seen with Doctor Moore and insurance underwriter sales IMC around 1230 for follow up of previously noted unstagable wounds to L Illiac crest and Sacral area extending to the lumbar spine. Patient seen with GOLDY LINTON.Patient alert and oriented x3 laying in [place] [employer] bed upon writers arrival.Patient is a sister of the cloth very strict privacy provided.Patient was able to reposition to R side with max assistance of insurance underwriter sales and Karrie LINTON.Visualized wound to L illiac crest. Left Iliac crest Pressure injury measures 6.1cm x 3.3cm x unstable appearing eschar and slough Wound bed presents with ~70% black unstable eschar that is loosening, and ~30% yellow loosely adherent moist slough. Wound drainage is yellow and thin with mild odor.Periwound is dry.Wound was cleansed with normal saline, before wound culture was obtained. Pressure injury #2 measures 7cm x 6cm x unstable loosening eschar and slough to R illiac crest extending to lumbar spine. Minimal blanchable erythema noted to periwound and small wound measuring ~2cm x ~2cm x slough is assessed from 9 to 10 o'clock. Wound to R lateral illiac crest presents as small puncture wound. Wound measures ~0.4cm x ~0.3cm x ~0.6cm Wound is noted with ~50% pink tissue and ~50% yellow tissue that is adherent.Cleansed small pucnture wound with normal saline and patted dry applied small amount of maxorb II cut in to a strip and loosely packed wound before covered with bordered gauze. Patient was off loaded with the use of pillows.Patient has contraction of the neck in which she is contracted to left side.Pillow placed under left side of patient neck for comfort.Patient was covered with sheet and blanket. Doctor Moore wrote wound care orders. .Patient has injuries to bilateral lower extremities in which wound care orders are in place Pressure injuries were cleansed with normal saline and patted dry. Applied Maxorb II to open wound beds and applied skin barrier film to periwound of both wounds and covered wounds with bordered gauze. Karina Tomlin [facility] Sep 08, 2017 13:52
[2017-09-08] MEDS: MORPHINE SULFATE ORAL SOLN 10 MG/0.5 ML SYRINGE PO PRN (14:20)
--- NOTE | 2017-09-08 15:25 | HHI.PR ---
Subjective Remarks ALERT NO DISTRESS ON O2 NC Objective Vital Signs Date Time Temp Pulse Resp B/P (MAP) Pulse Ox O2 Delivery O2 Flow Rate FiO2 09/08/17 14:00 111 09/08/17 13:06 103 09/08/17 12:00 98.3 110 24 120/69 (86) 99 09/08/17 10:00 92 09/08/17 08:27 94 Nasal Cannula 3.00 09/08/17 08:00 98.2 91 20 132/73 (92) 99 09/08/17 08:00 91 09/08/17 07:00 100 Nasal Cannula 2.00 09/08/17 06:00 104 09/08/17 04:54 100 35 09/08/17 04:00 97.8 86 17 121/62 (81) 100 09/08/17 04:00 86 09/08/17 02:22 100 30 09/08/17 02:00 78 09/08/17 00:00 98.0 83 18 111/56 (74) 100 09/08/17 00:00 83 09/07/17 22:31 99 30 09/07/17 22:00 91 09/07/17 20:57 100 Nasal Cannula 3.00 09/07/17 20:00 89 09/07/17 20:00 97.9 89 16 114/58 (76) 100 09/07/17 19:00 100 Nasal Cannula 2.00 09/07/17 18:00 81 09/07/17 18:00 81 11 97/51 (66) 100 09/07/17 17:00 79 24 99/58 (72) 100 09/07/17 17:00 79 09/07/17 16:00 98.5 75 26 99/50 (66) 99 09/07/17 16:00 75 I/O 09/07/17 09/07/17 09/07/17 09/08/17 09/08/17 09/08/17 07:00 15:00 23:00 07:00 15:00 23:00 Intake Total 240 ml 720 ml 120 ml Output Total 1000 ml 550 ml 600 ml Balance -760 ml 170 ml -480 ml Intake Oral 240 ml 720 ml 120 ml Output Urine Total 1000 ml 550 ml 600 ml # Bowel Movements 0 1 0 Result Diagram: 09/08/1731509/08/17315 Objective Remarks GENERAL: SKIN: Warm and dry. HEAD: Atraumatic. Normocephalic. EYES: Pupils equal and round. No scleral icterus. No injection or drainage. ENT: No nasal bleeding or discharge. Mucous membranes pink and moist. NECK: Trachea midline. No JVD. CARDIOVASCULAR: Regular rate and rhythm. RESPIRATORY: No accessory muscle use. Clear to auscultation. Breath sounds equal bilaterally. GASTROINTESTINAL: Abdomen soft, non-tender, nondistended. Hepatic and splenic margins not palpable. MUSCULOSKELETAL: Extremities without clubbing, cyanosis, or edema. No obvious deformities. NEUROLOGICAL: Awake and alert. No obvious cranial nerve deficits. Motor grossly within normal limits. Five out of 5 muscle strength in the arms and legs. Normal speech. PSYCHIATRIC: Appropriate mood and affect; insight and judgment normal. Assessment and Plan Assessment and Plan ASS RESPIRATORY FAILURE PNEUMONIA CXRAY CLEARING PLAN O2 NEEDED ANTIBIOTICS INCREASE ACTIVITY Claudia Taylor MD Sep 08, 2017 15:25
[2017-09-08] MEDS: WARFARIN SOD 2 MG TAB PO SCH (16:10)
[2017-09-09] VITALS (14 sets, daily range): BP systolic 115–147; BP diastolic 63–99; PULSE 72–108; RESP 15–20; TEMP 97.6–98.2; O2SAT 96–100
[2017-09-09] MEDS: DILTIAZEM HCL 60 MG TAB PO SCH ×4 (00:52→17:56)
[2017-09-09] MEDS: INSULIN NovoLIN REGULAR SUPPLEMENTAL SCALE SQ SCH ×6 (00:52→21:00)
[2017-09-09] MEDS: RESP: ALBUTEROL 2.5 MG/IPRATROPIUM 0.5 MG NEB (SCH) NEB ×4 (03:28→20:46)
[2017-09-09] MEDS: CHLORHEXIDINE GLUCONATE 2 % 1 PACK (2 CLOTHS) TOP SCH ×2 (04:00→19:52)
[2017-09-09] MEDS: ARTIFICIAL TEARS OPTH SOLN 15 ML BTL EACH EYE SCH ×3 (04:23→21:43)
[2017-09-09] MEDS: SODIUM CHLORIDE 0.9% FLUSH 10 ML FLUSH IV FLUSH SCH ×5 (04:24→21:43)
[2017-09-09] MEDS: hydrALAZINE HCL 50 MG TAB PO SCH ×3 (05:05→21:43)
[2017-09-09 06:30] LABS: INTERNATIONAL NORMALIZED RATIO 2.2 RATIO; PROTHROMBIN TIME - PATIENT 22.2 SEC (9.8-11.6)
[2017-09-09] MEDS: CHLORHEXIDINE 0.12% (ORAL KIT) 15 ML CUP MT SCH ×2 (08:00→19:49)
[2017-09-09] MEDS: LACTULOSE SYRUP 20 GM/30 ML CUP PO SCH ×2 (08:15→21:42)
[2017-09-09] MEDS: MUPIROCIN 2% OINT 1 APPLIC/GM SYR EACH NARE SCH ×2 (08:15→19:49)
[2017-09-09] MEDS: methylPREDNISolone SOD SUCC 40 MG/1 ML VIAL IV PUSH SCH (08:15)
[2017-09-09] MEDS: DOCUSATE SODIUM 50 MG/SENNA 8.6 MG TAB PO SCH ×2 (08:15→21:42)
[2017-09-09] MEDS: METOPROLOL TARTRATE 25 MG TAB PO SCH ×2 (08:16→21:42)
[2017-09-09] MEDS: FAMOTIDINE 20 MG TAB PO SCH ×2 (08:16→21:42)
[2017-09-09] MEDS: ZINC SULFATE 220 MG CAP PO SCH (08:16)
[2017-09-09] MEDS: ASCORBIC ACID 500 MG TAB PO SCH (08:16)
[2017-09-09] MEDS: COLLAGENASE OINT 30 GM TUBE TOPICAL SCH (08:30)
--- NOTE | 2017-09-09 08:42 | HHI.PR ---
Subjective Remarks in no acute distress. on oxygen via N/C. no fever. d/w the RN and no acute issues over night. Objective Vitals Vital Signs Date Time Temp Pulse Resp B/P (MAP) Pulse Ox O2 Delivery O2 Flow Rate FiO2 09/09/17 08:26 96 Nasal Cannula 3.00 09/09/17 06:00 89 09/09/17 04:00 98.2 81 15 115/63 (80) 99 09/09/17 04:00 81 09/09/17 02:00 95 09/09/17 00:00 91 09/09/17 00:00 98.0 91 17 123/63 (83) 98 09/08/17 22:00 85 09/08/17 21:59 99 Nasal Cannula 3.00 09/08/17 21:37 98 BiPAP 35 09/08/17 21:23 98 35 09/08/17 20:00 98.1 97 16 122/59 (80) 99 09/08/17 20:00 97 09/08/17 19:00 99 Nasal Cannula 2.00 09/08/17 18:00 98 09/08/17 16:00 96 09/08/17 16:00 99.3 93 20 116/56 (76) 98 09/08/17 14:00 111 09/08/17 13:06 103 09/08/17 12:00 98.3 110 24 120/69 (86) 99 09/08/17 10:00 92 I/O 09/08/17 09/08/17 09/08/17 09/09/17 09/09/17 09/09/17 07:00 15:00 23:00 07:00 15:00 23:00 Intake Total 120 ml 820 ml 240 ml Output Total 600 ml 450 ml 500 ml Balance -480 ml 370 ml -260 ml Intake Oral 120 ml 820 ml 240 ml Output Urine Total 600 ml 450 ml 500 ml # Bowel Movements 0 0 0 Result Diagram: 09/08/1731509/08/17315 Imaging Last Impressions Chest X-Ray 09/07/17 0000 Signed Impressions: CONCLUSION: Improving infiltrate in the right lung base. Lung Scan-VQ Nuclear Medicine 09/06/17 0000 Signed Impressions: CONCLUSION: Low probability for pulmonary embolus. The ventilation portion study is comprom ised. There is much of the aerosolized material still within the patient's mout h. Lower Extremity Ultrasound 09/05/17 0000 Signed Impressions: CONCLUSION: 1. No evidence of DVT. Lumbar Spine CT 08/21/17 0000 Signed Impressions: Service Date/Time: Monday, August 21, 2017 20:47 - CONCLUSION: 1. Postsurgical features of removal of posterior fixation hardware and placement of anterior fixation hardware at L4-5 and S1 with laminectomy at L4. 2. Surgical drain extends to the mid L4 level in the posterior lumbar soft tissues. There is low density soft tissue stranding and fluid measuring up to 2.7 cm and thickness extending just caudal from the surgical drain without peripherally enhancing focal fluid collection. Librado Hernandez MD Abdomen/Pelvis CT 08/04/17 0000 Signed Impressions: Service Date/Time: August 13:46 - CONCLUSION: 1. There is stool diffusely throughout the colon suggesting constipation. 2. The solid organs of the abdomen are grossly intact. 3. No free air free fluid seen within the abdomen. No abscess is identified. 4. Small amount of free fluid within the abdomen. 5. Bilateral pleural effusions and consolidation. 6. Cardiomegaly. 7. 2 mm nonobstructing stone in the lower pole collecting system of the right kidney. 8. Anasarca. Mil Toro MD Abdomen Fluoroscopy 08/04/17 0000 Signed Impressions: Service Date/Time: August 17:00 - CONCLUSION: Uncomplicated nasoenteric suction type catheter (NGT) placement as above. Librado Hernandez MD Objective Remarks GENERAL: on BiPaP CARDIOVASCULAR: Regular rate and regular rhythm without murmurs, gallops, or rubs. RESPIRATORY: Clear to auscultation. Breath sounds equal bilaterally. No wheezes , rales, or rhonchi. GASTROINTESTINAL: Abdomen soft, non-tender, nondistended. Normal, active bowel sounds MUSCULOSKELETAL: Extremities without clubbing, cyanosis, or edema. NEURO: Alert & Oriented x4 to person, place, time, situation. Moves all ext x4 Procedures 08/04 -placement of NG tube IR Medications and IVs Inpatient Medications Acetaminophen (Tylenol 650 Mg/ 20 ml Liq) 650 mg Q6H PRN PO fever; Start at 14:00 Acetaminophen (Tylenol Supp) 650 mg ONCE ONCE RECTAL Last administered on at 16:57; Start 08/03/17 at 16:45; Stop 08/03/17 at 16:46; Status DC Acetaminophen (Tylenol) 650 mg Q6H PRN PO PAIN 1-5 AND/OR FEVER >101F; Start at 20:00; Stop 08/07/17 at 14:02; Status DC Acetazolamide Sodium (Diamox Inj) 250 mg Q4HR IV PUSH Last administered on at 03:40; Start 09/07/17 at 00:00; Stop 09/07/17 at 07:29; Status DC Albumin Human 100 ml @ 60 mls/hr ONCE ONCE IV Last administered on 08/12/17at 08:10; Start 08/12/17 at 07:30; Stop 08/12/17 at 09:09; Status DC Albuterol/ Ipratropium (Duoneb Neb) 1 ampule Q2HR NEB PRN NEB sob; Start at 00:15 Artificial Tears (Tears Naturale Opth Soln) 1 drop Q8HR EACH EYE Last administered on 09/06/17at 05:09; Start 08/07/17 at 14:00 Ascorbic Acid (Vitamin C) 500 mg DAILY PO Last administered on 09/09/17at 08:16; Start 08/04/17 at 09:00 Aztreonam 1000 mg/ Sodium Chloride 100 ml @ 200 mls/hr Q12H IV Last administered on 08/16/17at 05:00; Start 08/04/17 at 17:00; Stop 08/16/17 at 13:12 ; Status DC Bacitracin (Baciguent Oint) 1 applic ONCE ONCE TOPICAL Last administered on at 19:01; Start 08/23/17 at 18:30; Stop 08/23/17 at 18:31; Status DC Bisacodyl (Dulcolax Supp) 10 mg DAILY PRN RECTAL SEVERE CONSITIPATION; Start at 20:00 Calcium Gluconate 1 gm/Dextrose 110 ml @ 110 mls/hr ONCE ONCE IV Last administered on 08/11/17at 08:52; Start 08/11/17 at 08:00; Stop 08/11/17 at 08:59 ; Status DC Calcium Gluconate 1 gm/Sodium Chloride 110 ml @ 110 mls/hr ONCE ONCE IV Last administered on 08/10/17at 10:45; Start 08/10/17 at 10:15; Stop 08/10/17 at 11:14; Status DC Calcium Gluconate 2 gm/Sodium Chloride 120 ml @ 120 mls/hr ONCE ONCE IV Last administered on 08/06/17at 15:53; Start 08/06/17 at 16:00; Stop 08/06/17 at 16:59; Status DC Ceftriaxone Sodium 1000 mg/ Sodium Chloride 100 ml @ 200 mls/hr Q24H IV Last administered on 08/04/17at 12:28; Start 08/04/17 at 12:00; Stop 08/04/17 at 16:00; Status DC Chlorhexidine Gluconate (Chlorhexidine 2% Cloth) 3 pack UNSCH PRN TOP HYGIENIC CARE; Start 08/03/17 at 20:00 Chlorhexidine Gluconate (Peridex 0.12% Liq) 15 ml BID@08,20 MT Last administered on 09/08/17at 19:57; Start 08/04/17 at 20:00 Clindamycin Phosphate 900 mg/ Sodium Chloride 106 ml @ 200 mls/hr ONCE STAT IV Last administered on 08/03/17at 19:39; Start 08/03/17 at 18:43; Stop 08/03/17 at 19:14; Status DC Collagenase (Santyl Oint) 1 applic DAILY TOPICAL Last administered on 09/09/17at 08:30; Start 09/08/17 at 13:00 Cyclobenzaprine HCl (Flexeril) 10 mg Q8HR PRN PO Muscle Cramps Last administered on 09/07/17at 12:29; Start 08/03/17 at 19:45 Daptomycin (Cubicin Inj) 560 mg DAILY IV ; Start 08/04/17 at 09:00; Stop 08/04/17 at 09:24; Status DC Daptomycin 500 mg/ Sodium Chloride 100 ml @ 200 mls/hr Q24H IV Last administered on 09/08/17at 10:54; Start 08/17/17 at 11:00 Dexamethasone Sodium Phosphate (Decadron Inj) 4 mg Q6HR IV PUSH Last administered on 08/10/17at 04:58; Start 08/09/17 at 12:00; Stop 08/10/17 at 11:59; Status DC Dextrose (D50w (Vial) Inj) 50 ml UNSCH PRN IV PUSH HYPOGLYCEMIA-SEE COMMENTS; Start 08/15/17 at 16:00 Digoxin (Lanoxin Inj) 0.125 mg ONCE ONCE IV PUSH Last administered on 09:52; Start 08/04/17 at 09:30; Stop 08/04/17 at 09:31; Status DC Diltiazem HCl (Cardizem) 60 mg Q6HR PO Last administered on 09/09/17 05:05; Start 08/16/17 at 12:00 Famotidine (Pepcid Inj) 10 mg Q12HR IV PUSH Last administered on 08/05/17 08:28 ; Start 08/03/17 at 21:00; Stop 08/05/17 at 10:14; Status DC Famotidine (Pepcid) 10 mg BID PO Last administered on 09/09/17 08:16; Start 08/05/17 at 21:00 Fentanyl Citrate 250 ml @ 5 mls/hr TITRATE PRN IV SEDATION Last administered on 08/14/17at 10:30; Start 08/04/17 at 10:30; Stop 08/15/17 at 11:07; Status DC Fluconazole/ Sodium Chloride 100 ml @ 100 mls/hr Q24H IV Last administered on 08/14/17 16:17; Start 08/06/17 at 15:00; Stop 08/15/17 at 13:52; Status DC Fluticasone Propionate (Flonase Harvey Spr) 1 spray Q12HR EACH NARE Last administered on 08/07/17 09:08; Start 08/03/17 at 21:00; Status Future Hold Furosemide (Lasix Inj) 20 mg Q12H IV PUSH Last administered on 08/24/17at 10:40 ; Start 08/23/17 at 23:45; Stop 08/24/17 at 11:46; Status DC Glucagon (Glucagon Inj) 1 mg UNSCH PRN OTHER HYPOGLYCEMIA-SEE COMMENTS; Start 08/15/17 at 16:00 Heparin Sodium (Porcine) (Heparin Inj) 5,000 units Q8H SQ Last administered on 08/04/17at 05:13; Start 08/03/17 at 20:00; Stop 08/15/17 at 11:07; Status DC Hydralazine HCl (Apresoline Inj) 10 mg Q1HR PRN IV PUSH SBP>170, DBP>90 Last administered on 08/13/17at 01:41; Start 08/08/17 at 15:15 Hydralazine HCl (Apresoline) 50 mg Q8HR PO Last administered on 09/09/17at 05:05 ; Start 08/19/17 at 08:30 Insulin Human Regular (NovoLIN R SUPPLEMENTAL SCALE) 1 Q4H SQ Last administered on 09/08/17at 20:00; Start 09/07/17 at 09:00 Ipratropium Edwards (Atrovent Neb) 0.5 mg Q6HR NEB NEB Last administered on at 18:00; Start 08/04/17 at 16:00; Stop 08/27/17 at 09:02; Status DC Labetalol HCl (Trandate Inj) 10 mg Q1HR PRN IV PUSH SBP>170, DBP>90, HR>65 Last administered on 08/17/17at 11:35; Start 08/08/17 at 15:15 Lactulose (Lactulose Liq) 30 ml Q12HR PO Last administered on 09/09/17at 08:15; Start 08/07/17 at 21:00 Magnesium Hydroxide (Milk Of Magnesia Liq) 30 ml Q12H PRN PO Mild constipation ; Start 08/03/17 at 20:00 Magnesium Oxide (Mag-Ox) 800 mg UNSCH PRN PO For Magnesium 1.2 - 1.6 mg/dL; Start 08/16/17 at 09:45; Stop 08/28/17 at 15:32; Status DC Magnesium Sulfate 2 gm/Sodium Chloride 100 ml @ 50 mls/hr UNSCH PRN IV For Magnesium 1.2 - 1.6 mg/dL; Start 08/16/17 at 09:45; Stop 08/28/17 at 15:32; Status DC Magnesium Sulfate 4 gm/Sodium Chloride 100 ml @ 50 mls/hr UNSCH PRN IV For Magnesium 0.9 - 1.1 mg/dL; Start 08/16/17 at 09:45; Stop 08/28/17 at 15:32; Status DC Magnesium Sulfate/ Dextrose 100 ml @ 100 mls/hr Q1H IV Last administered on 06:42; Start 08/06/17 at 06:15; Stop 08/06/17 at 08:14; Status DC Meropenem 1000 mg/ Sodium Chloride 100 ml @ 200 mls/hr Q8H IV Last administered on 08/22/17at 08:33; Start 08/19/17 at 18:00; Stop 08/22/17 at 11:39 ; Status DC Methylprednisolone Sodium Succinate (SoluMEDROL INJ) 40 mg DAILY IV PUSH Last administered on 09/09/17at 08:15; Start 09/07/17 at 09:00 Metoprolol Tartrate (Lopressor Inj) 5 mg Q5M PRN IV PUSH HR > 100 Last administered on 08/15/17at 03:21; Start 08/03/17 at 16:45 Metoprolol Tartrate (Lopressor) 25 mg Q12HR PO Last administered on 09/09/17 08 :16; Start 09/08/17 at 09:00 Miscellaneous (Pill Splitter) 1 ea UNSCH PRN OTHER SEE LABEL COMMENTS; Start at 14:15 Miscellaneous Information ([facility] Information) 1 Q361D XX Last administered on 08/03/17at 22:46; Start 08/03/17 at 20:00 Miscellaneous Medication (ASP Crit: Doc allergy to Penicillin/ Cephalosp) 1 UNSCH X1 PRN .XX PHARMACY DOCUMENTATION; Start 08/19/17 at 16:45; Stop at 16:44; Status DC Miscellaneous Medication ([facility] Information) 1 UNSCH X1 PRN XX PHARMACY DOCUMENTATION; Start 08/19/17 at 16:45; Stop 08/20/17 at 16:44; Status DC Morphine Sulfate (Morphine Inj) 2 mg Q2H PRN IV PUSH PAIN SCALE 6 TO 10 Last administered on 08/04/17at 05:14; Start 08/03/17 at 20:00; Status Future Hold Morphine Sulfate (Msir) 15 mg Q4H PRN PO Moderate Pain; Start 08/03/17 at 19:45 ; Status Future Hold Morphine Sulfate (Oramorph Sr) 15 mg Q12HR PO Last administered on 08/04/17at 07: 57; Start 08/03/17 at 21:00; Stop 08/15/17 at 11:07; Status DC Morphine Sulfate (Roxanol Liq) 10 mg Q4H PRN PO pain 5-10 Last administered on 09/08/17at 14:20; Start 08/12/17 at 14:15 Mupirocin (Bactroban Nasal 2% Oint) Taper BID EACH NARE Last administered on 09/09/17at 08:15; Start 08/07/17 at 21:00; Stop 08/03/18 at 20:59 Nitroglycerin (Nitroglycerin 2% Oint) 2 inch Q6HR PRN TOPICAL SBP>170, DBP>90; Start 08/08/17 at 15:15 Ondansetron HCl (Zofran Inj) 4 mg Q6H PRN IV PUSH NAUSEA OR VOMITING; Start 08/03/17 at 20:00 Patient Medication Teaching (Coumadin Booklet) 1 ONCE ONCE .XX Last administered on 08/25/17at 16:00; Start 08/25/17 at 16:00; Stop 08/25/17 at 16:01 ; Status DC Pharmacy Profile Note 0 ml @ 0 mls/hr UNSCH OTHER ; Start 08/04/17 at 03:45 Phytonadione 10 mg/Sodium Chloride 51 ml @ 102 mls/hr ONCE ONCE IV Last administered on 08/05/17at 16:01; Start 08/05/17 at 16:00; Stop 08/05/17 at 16:29; Status DC Potassium Phosphate (K-Phos) 2,000 mg UNSCH PRN PO/TUBE SEE LABEL COMMENTS; Start 08/16/17 at 09:45; Stop 08/28/17 at 15:32; Status DC Potassium Phosphate 30 mmol/ Sodium Chloride 260 ml @ 42 mls/hr UNSCH PRN IV SEE LABEL COMMENTS Last administered on 08/17/17at 12:24; Start 08/16/17 at 09:45 ; Stop 08/28/17 at 15:32; Status DC Potassium Bicarb/ Potassium Chloride (K-Lyte Cl Eff) 50 meq UNSCH PRN PO For Potassium 3.3 - 3.5 mEq/L Last administered on 08/20/17at 21:40; Start 08/16/17 at 09:45; Stop 08/28/17 at 15:32; Status DC Potassium Chloride 100 ml @ 50 mls/hr Q2H PRN IV For Potassium 3.3 - 3.5 mEq/L ; Start 08/16/17 at 09:45; Stop 08/28/17 at 15:32; Status DC Propofol (Diprivan 200 Mg/20 ml Inj) 100 mg ONCE ONCE IV Last administered on 08/04/17at 10:30; Start 08/04/17 at 10:30; Stop 08/04/17 at 10:31; Status DC Rocuronium Edwards (Zemuron Inj) 50 mg BOLUS ONCE IV Last administered on at 10:30; Start 08/04/17 at 10:30; Stop 08/04/17 at 10:31; Status DC Senna/Docusate Sodium (Dina-Colace) 1 tab BID PO Last administered on 09/09/17at 08:15; Start 08/03/17 at 21:00 Sennosides (Senokot) 17.2 mg Q12H PRN PO Moderate constipation; Start 08/03/17 at 20:00 Sodium Bicarbonate 150 meq/Dextrose 1,000 ml @ 75 mls/hr [id number] IV Last administered on 08/05/17at 13:13; Start 08/04/17 at 10:00; Stop 08/05/17 at 16:42; Status DC Sodium Bicarbonate (Sodium Bicarbonate 8.4% Inj) 50 meq ONCE ONCE IV PUSH Last administered on 08/04/17at 09:15; Start 08/04/17 at 09:15; Stop 08/04/17 at 09: 17; Status DC Sodium Chloride 250 ml @ 15 mls/hr ONCE ONCE IV Last administered on at 13:30; Start 09/02/17 at 06:30; Stop 09/02/17 at 23:09; Status DC Sodium Chloride (NS Flush) 2 ml BID IV FLUSH Last administered on 09/09/17at 08: 17; Start 08/03/17 at 21:00 Sodium Phosphate 30 mmol/Sodium Chloride 250 ml @ 42 mls/hr UNSCH PRN IV For Phosphorus < 2.5 mg/dL; Start 08/16/17 at 09:45; Stop 08/28/17 at 15:32; Status DC Temazepam (Restoril) 15 mg HS PRN PO INSOMNIA; Start 08/03/17 at 20:00; Stop 08/04/17 at 09:21; Status DC Warfarin Sodium (Coumadin) 2 mg DAILY@1600 PO Last administered on 09/08/17at 16: 10; Start 09/07/17 at 16:00 Zinc Sulfate (Zinc Sulfate) 220 mg DAILY PO Last administered on 09/09/17at 08:16 ; Start 08/04/17 at 09:00 Date of Insertion: August 04, 2017 A/P Assessment and Plan A/P Chronic pain syndrome Status post removal of lumbar/sacral L5/S1 hardware 06/19 Chronic opioid use Monitor neuro status, avoid sedatives KAY drain removed 08/23 after discussion with [facility] neurosurgery, Dr. Wilson and plastics Dr. Dela Cruz (resident for Dr. Shirley). Dr. Wilson requests followup in Neurosurgery clinic sometime after antibiotics completed (daptomycin stop date planned for 09/09). Acute hypercapnic respiratory failure Mild pulmonary hypertension COPD/asthma Continue with oxygen keep sats >92% Ipratropium aerosols every 6 hours Albuterol allergy Solumederol 40mg IV daily; will decrease the dose to 20 mg daily. pulmonary following. A. fib RVR-resolved History of essential hypertension Chronic systolic congestive heart failure Chronic atrial fibrillation On Cardizem 60 mg Q6, continue Lopressor ' decrease the dose to 25mg Q12, Hydralazine 50mg Q8 08/05 Echo- The left ventricular systolic function is moderately reduced with an EF 40-45%. Dyskinetic apical cap wall motion. The right ventricle is moderately dilated. Moderate mitral valve regurgitation. Aortic valve sclerosis is present. There is mild to moderate tricuspid valve regurgitation. There is estimated mild pulmonary hypertension present (range 40-50 mmHg). On Coumadin, dosing per pharmacy as per below. Acute renal insufficiency incentive chronic kidney disease stage IV Right renal stone/no hydronephrosis Metabolic alkalosis Monitor renal function and electrolytes. Anemia of chronic disease Thrombocytopenia Leukocytosis MRSA Discitis Chronic warfarin use Funguria Sacral decubitus ulcers - wound care consulted.. treated with daptomycin. Followup with [facility] some time after that. Drain was removed 08/23. Coumadin per pharmacy. Medical records release obtained for medical records at [facility] and [facility] - The patient has a history of recent surgery at [facility] in [place]. She underwent removal of hardware from the lumbosacral spine L1-S1 because of exposed loosened hardware from prior surgery. She reportedly had surgery of the lumbosacral spine 10 years prior. The surgery at [facility] was on 06/27. Intraoperative culture reportedly had MRSA. She was put on antibiotics by infectious disease to complete on 07/29/2017. She was receiving intravenous vancomycin. The patient completed the course of the vancomycin. There is a notation in the medical record that she is ALLERGIC TO VANCOMYCIN. She was seen by infectious disease physician at [facility] and reportedly will be in need of IV antibiotics for 6 weeks because of osteomyelitis of the lumbar spine. 08/06 UTI -Denise- 5/- Blood Cultures -NGTD Endocrine: SSI for glycemic control-- SSI Prophylaxis: GI Prophylaxis Famotidine BID DVT Prophylaxis - warfarin for a fib will also provide DVT prophylaxis. -- SCDs. transfer to telemetry. Discharge Planning dc planning to SNF within the next 2-3 days if stable. Jamie Andres MD Sep 09, 2017 08:42
[2017-09-09] MEDS: WARFARIN SOD 1 MG TAB PO SCH (16:01)
[2017-09-09] MEDS: MORPHINE SULFATE ORAL SOLN 10 MG/0.5 ML SYRINGE PO PRN ×2 (16:02→21:44)
--- NOTE | 2017-09-09 18:07 | HHI.PR ---
Subjective Remarks ALERT NO DISTRESS ON O2 NC Objective Vital Signs Date Time Temp Pulse Resp B/P (MAP) Pulse Ox O2 Delivery O2 Flow Rate FiO2 09/09/17 17:02 20 09/09/17 14:00 105 09/09/17 12:00 97.9 90 16 145/74 (97) 100 09/09/17 12:00 90 09/09/17 10:00 72 09/09/17 08:26 96 Nasal Cannula 3.00 09/09/17 08:00 98.0 80 18 147/99 (115) 100 09/09/17 08:00 80 09/09/17 07:00 100 Nasal Cannula 2.00 09/09/17 06:00 89 09/09/17 04:00 98.2 81 15 115/63 (80) 99 09/09/17 04:00 81 09/09/17 02:00 95 09/09/17 00:00 91 09/09/17 00:00 98.0 91 17 123/63 (83) 98 09/08/17 22:00 85 09/08/17 21:59 99 Nasal Cannula 3.00 09/08/17 21:37 98 BiPAP 35 09/08/17 21:23 98 35 09/08/17 20:00 98.1 97 16 122/59 (80) 99 09/08/17 20:00 97 09/08/17 19:00 99 Nasal Cannula 2.00 I/O 09/08/17 09/08/17 09/08/17 09/09/17 09/09/17 09/09/17 07:00 15:00 23:00 07:00 15:00 23:00 Intake Total 120 ml 820 ml 240 ml Output Total 600 ml 450 ml 500 ml Balance -480 ml 370 ml -260 ml Intake Oral 120 ml 820 ml 240 ml Output Urine Total 600 ml 450 ml 500 ml # Bowel Movements 0 0 0 Result Diagram: 09/08/1731509/08/17315 Objective Remarks GENERAL: SKIN: Warm and dry. HEAD: Atraumatic. Normocephalic. EYES: Pupils equal and round. No scleral icterus. No injection or drainage. ENT: No nasal bleeding or discharge. Mucous membranes pink and moist. NECK: Trachea midline. No JVD. CARDIOVASCULAR: Regular rate and rhythm. RESPIRATORY: No accessory muscle use. Clear to auscultation. Breath sounds equal bilaterally. GASTROINTESTINAL: Abdomen soft, non-tender, nondistended. Hepatic and splenic margins not palpable. MUSCULOSKELETAL: Extremities without clubbing, cyanosis, or edema. No obvious deformities. NEUROLOGICAL: Awake and alert. No obvious cranial nerve deficits. Motor grossly within normal limits. Five out of 5 muscle strength in the arms and legs. Normal speech. PSYCHIATRIC: Appropriate mood and affect; insight and judgment normal. Assessment and Plan Assessment and Plan ASS RESPIRATORY FAILURE PNEUMONIA CXRAY CLEARING PLAN O2 NEEDED ANTIBIOTICS INCREASE ACTIVITY Claudia Taylor MD Sep 09, 2017 18:07
[2017-09-10] VITALS (8 sets, daily range): BP systolic 124–167; BP diastolic 61–75; PULSE 73–98; RESP 16–20; TEMP 97.4–98.2; O2SAT 95–97
[2017-09-10] MEDS: DILTIAZEM HCL 60 MG TAB PO SCH ×4 (01:00→17:50)
[2017-09-10] MEDS: ARTIFICIAL TEARS OPTH SOLN 15 ML BTL EACH EYE SCH ×3 (01:00→21:56)
[2017-09-10] MEDS: INSULIN NovoLIN REGULAR SUPPLEMENTAL SCALE SQ SCH ×6 (01:00→22:41)
[2017-09-10] MEDS: hydrALAZINE HCL 50 MG TAB PO SCH ×3 (05:55→21:55)
[2017-09-10] MEDS: COLLAGENASE OINT 30 GM TUBE TOPICAL SCH (05:59)
[2017-09-10] MEDS: SODIUM CHLORIDE 0.9% FLUSH 10 ML FLUSH IV FLUSH SCH ×5 (06:07→21:56)
[2017-09-10] MEDS: CHLORHEXIDINE 0.12% (ORAL KIT) 15 ML CUP MT SCH ×2 (08:00→20:00)
[2017-09-10] MEDS: ASCORBIC ACID 500 MG TAB PO SCH (08:12)
[2017-09-10] MEDS: DOCUSATE SODIUM 50 MG/SENNA 8.6 MG TAB PO SCH ×2 (08:12→21:54)
[2017-09-10] MEDS: METOPROLOL TARTRATE 25 MG TAB PO SCH ×2 (08:12→21:56)
[2017-09-10] MEDS: ZINC SULFATE 220 MG CAP PO SCH (08:13)
[2017-09-10] MEDS: MUPIROCIN 2% OINT 1 APPLIC/GM SYR EACH NARE SCH ×2 (08:13→21:55)
[2017-09-10] MEDS: FAMOTIDINE 20 MG TAB PO SCH ×2 (08:13→21:55)
[2017-09-10] MEDS: LACTULOSE SYRUP 20 GM/30 ML CUP PO SCH ×2 (08:17→21:56)
[2017-09-10] MEDS ORDERED: methylPREDNISolone SOD SUCC 40 MG/1 ML VIAL IV PUSH SCH (09:00)
--- NOTE | 2017-09-10 11:34 | HHI.PR ---
Subjective Remarks in no acute distress. on two liters of oxygen via N/C. no fever. has some pain/ tenderness over the chest wall. Objective Vitals Vital Signs Date Time Temp Pulse Resp B/P (MAP) Pulse Ox O2 Delivery O2 Flow Rate FiO2 09/10/17 08:05 Nasal Cannula 2.00 09/10/17 08:00 97.4 92 16 124/65 (84) 96 09/10/17 04:00 98.0 85 20 131/66 (87) 95 09/10/17 00:45 98 Nasal Cannula 2.00 09/10/17 00:00 97 09/10/17 00:00 97.7 85 20 138/70 (92) 96 09/10/17 00:00 97.7 91 18 130/68 (88) 97 09/09/17 22:00 95 09/09/17 20:48 99 Nasal Cannula 2.00 09/09/17 20:00 99 09/09/17 20:00 97.6 99 18 139/63 (88) 99 09/09/17 19:00 100 Nasal Cannula 2.00 09/09/17 18:00 106 09/09/17 17:02 20 09/09/17 16:00 98.2 108 20 146/71 (96) 100 09/09/17 16:00 108 09/09/17 14:00 105 09/09/17 12:00 97.9 90 16 145/74 (97) 100 09/09/17 12:00 90 I/O 09/09/17 09/09/17 09/09/17 09/10/17 09/10/17 09/10/17 07:00 15:00 23:00 07:00 15:00 23:00 Intake Total 240 ml 900 ml Output Total 500 ml 600 ml Balance -260 ml 300 ml Intake Oral 240 ml 800 ml IV Total 100 ml Output Urine Total 500 ml 600 ml # Voids 2 # Bowel Movements 0 Result Diagram: 09/08/176 09/08/17315 Imaging Last Impressions Chest X-Ray 09/07/17 0000 Signed Impressions: CONCLUSION: Improving infiltrate in the right lung base. Lung Scan-VQ Nuclear Medicine 09/06/17 0000 Signed Impressions: CONCLUSION: Low probability for pulmonary embolus. The ventilation portion study is comprom ised. There is much of the aerosolized material still within the patient's mout h. Lower Extremity Ultrasound 09/05/17 Signed Impressions: CONCLUSION: 1. No evidence of DVT. Lumbar Spine CT 08/21/17 0000 Signed Impressions: Service Date/Time: Monday, August 21, 2017 20:47 - CONCLUSION: 1. Postsurgical features of removal of posterior fixation hardware and placement of anterior fixation hardware at L4-5 and S1 with laminectomy at L4. 2. Surgical drain extends to the mid L4 level in the posterior lumbar soft tissues. There is low density soft tissue stranding and fluid measuring up to 2.7 cm and thickness extending just caudal from the surgical drain without peripherally enhancing focal fluid collection. Librado Hernandez MD Abdomen/Pelvis CT 08/04/17 Signed Impressions: Service Date/Time: August 13:46 - CONCLUSION: 1. There is stool diffusely throughout the colon suggesting constipation. 2. The solid organs of the abdomen are grossly intact. 3. No free air free fluid seen within the abdomen. No abscess is identified. 4. Small amount of free fluid within the abdomen. 5. Bilateral pleural effusions and consolidation. 6. Cardiomegaly. 7. 2 mm nonobstructing stone in the lower pole collecting system of the right kidney. 8. Anasarca. Mil Toro MD Abdomen Fluoroscopy 08/04/17 Signed Impressions: Service Date/Time: August 17:00 - CONCLUSION: Uncomplicated nasoenteric suction type catheter (NGT) placement as above. Librado Hernandez MD Objective Remarks GENERAL: on BiPaP CARDIOVASCULAR: Regular rate and regular rhythm without murmurs, gallops, or rubs. RESPIRATORY: Clear to auscultation. Breath sounds equal bilaterally. No wheezes , rales, or rhonchi. GASTROINTESTINAL: Abdomen soft, non-tender, nondistended. Normal, active bowel sounds MUSCULOSKELETAL: Extremities without clubbing, cyanosis, or edema. NEURO: Alert & Oriented x4 to person, place, time, situation. Moves all ext x4 Procedures / -placement of NG tube IR Medications and IVs Inpatient Medications Acetaminophen (Tylenol 650 Mg/ 20 ml Liq) 650 mg Q6H PRN PO fever Last administered on 09/10/17at 05:55; Start 08/07/17 at 14:00 Acetaminophen (Tylenol Supp) 650 mg ONCE ONCE RECTAL Last administered on at 16:57; Start 08/03/17 at 16:45; Stop 08/03/17 at 16:46; Status DC Acetaminophen (Tylenol) 650 mg Q6H PRN PO PAIN 1-5 AND/OR FEVER >101F; Start at 20:00; Stop 08/07/17 at 14:02; Status DC Acetazolamide Sodium (Diamox Inj) 250 mg Q4HR IV PUSH Last administered on at 03:40; Start 09/07/17 at 00:00; Stop 09/07/17 at 07:29; Status DC Albumin Human 100 ml @ 60 mls/hr ONCE ONCE IV Last administered on 08/12/17at 08:10; Start 08/12/17 at 07:30; Stop 08/12/17 at 09:09; Status DC Albuterol/ Ipratropium (Duoneb Neb) 1 ampule Q2HR NEB PRN NEB sob; Start at 00:15 Artificial Tears (Tears Naturale Opth Soln) 1 drop Q8HR EACH EYE Last administered on 09/06/17at 05:09; Start 08/07/17 at 14:00 Ascorbic Acid (Vitamin C) 500 mg DAILY PO Last administered on 09/10/17at 08:12; Start 08/04/17 at 09:00 Aztreonam 1000 mg/ Sodium Chloride 100 ml @ 200 mls/hr Q12H IV Last administered on 08/16/17at 05:00; Start 08/04/17 at 17:00; Stop 08/16/17 at 13:12 ; Status DC Bacitracin (Baciguent Oint) 1 applic ONCE ONCE TOPICAL Last administered on at 19:01; Start 08/23/17 at 18:30; Stop 08/23/17 at 18:31; Status DC Bisacodyl (Dulcolax Supp) 10 mg DAILY PRN RECTAL SEVERE CONSITIPATION; Start at 20:00 Calcium Gluconate 1 gm/Dextrose 110 ml @ 110 mls/hr ONCE ONCE IV Last administered on 08/11/17at 08:52; Start 08/11/17 at 08:00; Stop 08/11/17 at 08:59 ; Status DC Calcium Gluconate 1 gm/Sodium Chloride 110 ml @ 110 mls/hr ONCE ONCE IV Last administered on 08/10/17at 10:45; Start 08/10/17 at 10:15; Stop 08/10/17 at 11:14; Status DC Calcium Gluconate 2 gm/Sodium Chloride 120 ml @ 120 mls/hr ONCE ONCE IV Last administered on 08/06/17at 15:53; Start 08/06/17 at 16:00; Stop 08/06/17 at 16:59; Status DC Ceftriaxone Sodium 1000 mg/ Sodium Chloride 100 ml @ 200 mls/hr Q24H IV Last administered on 08/04/17at 12:28; Start 08/04/17 at 12:00; Stop 08/04/17 at 16:00; Status DC Chlorhexidine Gluconate (Chlorhexidine 2% Cloth) 3 pack UNSCH PRN TOP HYGIENIC CARE; Start 08/03/17 at 20:00 Chlorhexidine Gluconate (Peridex 0.12% Liq) 15 ml BID@08,20 MT Last administered on 09/08/17at 19:57; Start 08/04/17 at 20:00 Clindamycin Phosphate 900 mg/ Sodium Chloride 106 ml @ 200 mls/hr ONCE STAT IV Last administered on 08/03/17at 19:39; Start 08/03/17 at 18:43; Stop 08/03/17 at 19:14; Status DC Collagenase (Santyl Oint) 1 applic DAILY TOPICAL Last administered on 09/10/17at 05:59; Start 09/08/17 at 13:00 Cyclobenzaprine HCl (Flexeril) 10 mg Q8HR PRN PO Muscle Cramps Last administered on 09/07/17at 12:29; Start 08/03/17 at 19:45 Daptomycin (Cubicin Inj) 560 mg DAILY IV ; Start 08/04/17 at 09:00; Stop 08/04/17 at 09:24; Status DC Daptomycin 500 mg/ Sodium Chloride 100 ml @ 200 mls/hr Q24H IV Last administered on 09/08/17at 10:54; Start 08/17/17 at 11:00; Stop 09/09/17 at 10:59; Status DC Dexamethasone Sodium Phosphate (Decadron Inj) 4 mg Q6HR IV PUSH Last administered on 08/10/17at 04:58; Start 08/09/17 at 12:00; Stop 08/10/17 at 11:59; Status DC Dextrose (D50w (Vial) Inj) 50 ml UNSCH PRN IV PUSH HYPOGLYCEMIA-SEE COMMENTS; Start 08/15/17 at 16:00 Digoxin (Lanoxin Inj) 0.125 mg ONCE ONCE IV PUSH Last administered on at 09:52; Start 08/04/17 at 09:30; Stop 08/04/17 at 09:31; Status DC Diltiazem HCl (Cardizem) 60 mg Q6HR PO Last administered on 09/10/17at 05:55; Start 08/16/17 at 12:00 Famotidine (Pepcid Inj) 10 mg Q12HR IV PUSH Last administered on 08/05/17at 08:28 ; Start 08/03/17 at 21:00; Stop 08/05/17 at 10:14; Status DC Famotidine (Pepcid) 10 mg BID PO Last administered on 09/10/17at 08:13; Start 08/05/17 at 21:00 Fentanyl Citrate 250 ml @ 5 mls/hr TITRATE PRN IV SEDATION Last administered on 08/14/17at 10:30; Start 08/04/17 at 10:30; Stop 08/15/17 at 11:07; Status DC Fluconazole/ Sodium Chloride 100 ml @ 100 mls/hr Q24H IV Last administered on 08/14/17at 16:17; Start 08/06/17 at 15:00; Stop 08/15/17 at 13:52; Status DC Fluticasone Propionate (Flonase Harvey Spr) 1 spray Q12HR EACH NARE Last administered on 08/07/17at 09:08; Start 08/03/17 at 21:00; Status Future Hold Furosemide (Lasix Inj) 20 mg Q12H IV PUSH Last administered on 08/24/17at 10:40 ; Start 08/23/17 at 23:45; Stop 08/24/17 at 11:46; Status DC Glucagon (Glucagon Inj) 1 mg UNSCH PRN OTHER HYPOGLYCEMIA-SEE COMMENTS; Start 08/15/17 at 16:00 Heparin Sodium (Porcine) (Heparin Inj) 5,000 units Q8H SQ Last administered on 08/04/17at 05:13; Start 08/03/17 at 20:00; Stop 08/15/17 at 11:07; Status DC Hydralazine HCl (Apresoline Inj) 10 mg Q1HR PRN IV PUSH SBP>170, DBP>90 Last administered on 08/13/17at 01:41; Start 08/08/17 at 15:15 Hydralazine HCl (Apresoline) 50 mg Q8HR PO Last administered on 09/10/17at 05:55 ; Start 08/19/17 at 08:30 Insulin Human Regular (NovoLIN R SUPPLEMENTAL SCALE) 1 Q4H SQ Last administered on 09/09/17at 21:00; Start 09/07/17 at 09:00 Ipratropium [place] (Atrovent Neb) 0.5 mg Q6HR NEB NEB Last administered on at 18:00; Start 08/04/17 at 16:00; Stop 08/27/17 at 09:02; Status DC Labetalol HCl (Trandate Inj) 10 mg Q1HR PRN IV PUSH SBP>170, DBP>90, HR>65 Last administered on 08/17/17at 11:35; Start 08/08/17 at 15:15 Lactulose (Lactulose Liq) 30 ml Q12HR PO Last administered on 09/09/17at 21:42; Start 08/07/17 at 21:00 Magnesium Hydroxide (Milk Of Magnesia Liq) 30 ml Q12H PRN PO Mild constipation ; Start 08/03/17 at 20:00 Magnesium Oxide (Mag-Ox) 800 mg UNSCH PRN PO For Magnesium 1.2 - 1.6 mg/dL; Start 08/16/17 at 09:45; Stop 08/28/17 at 15:32; Status DC Magnesium Sulfate 2 gm/Sodium Chloride 100 ml @ 50 mls/hr UNSCH PRN IV For Magnesium 1.2 - 1.6 mg/dL; Start 08/16/17 at 09:45; Stop 08/28/17 at 15:32; Status DC Magnesium Sulfate 4 gm/Sodium Chloride 100 ml @ 50 mls/hr UNSCH PRN IV For Magnesium 0.9 - 1.1 mg/dL; Start 08/16/17 at 09:45; Stop 08/28/17 at 15:32; Status DC Magnesium Sulfate/ Dextrose 100 ml @ 100 mls/hr Q1H IV Last administered on 08/06/17at 06:42; Start 08/06/17 at 06:15; Stop 08/06/17 at 08:14; Status DC Meropenem 1000 mg/ Sodium Chloride 100 ml @ 200 mls/hr Q8H IV Last administered on 08/22/17at 08:33; Start 08/19/17 at 18:00; Stop 08/22/17 at 11:39 ; Status DC Methylprednisolone Sodium Succinate (SoluMEDROL INJ) 20 mg DAILY IV PUSH Last administered on 09/10/17at 08:12; Start 09/10/17 at 09:00 Metoprolol Tartrate (Lopressor Inj) 5 mg Q5M PRN IV PUSH HR > 100 Last administered on 08/15/17at 03:21; Start 08/03/17 at 16:45 Metoprolol Tartrate (Lopressor) 25 mg Q12HR PO Last administered on 09/10/17at 08 :12; Start 09/08/17 at 09:00 Miscellaneous (Pill Splitter) 1 ea UNSCH PRN OTHER SEE LABEL COMMENTS; Start at 14:15 Miscellaneous Information ([facility] Nursing Information) 1 Q361D XX Last administered on 08/03/17at 22:46; Start 08/03/17 at 20:00 Miscellaneous Medication (ASP Crit: Doc allergy to Penicillin/ Cephalosp) 1 UNSCH X1 PRN .XX PHARMACY DOCUMENTATION; Start 08/19/17 at 16:45; Stop at 16:44; Status DC Miscellaneous Medication ([facility] Pharmacy Information) 1 UNSCH X1 PRN XX PHARMACY DOCUMENTATION; Start 08/19/17 at 16:45; Stop 08/20/17 at 16:44; Status DC Morphine Sulfate (Morphine Inj) 2 mg Q2H PRN IV PUSH PAIN SCALE 6 TO 10 Last administered on 08/04/17at 05:14; Start 08/03/17 at 20:00; Status Future Hold Morphine Sulfate (Msir) 15 mg Q4H PRN PO Moderate Pain; Start 08/03/17 at 19:45 ; Status Future Hold Morphine Sulfate (Oramorph Sr) 15 mg Q12HR PO Last administered on 08/04/17at 07: 57; Start 08/03/17 at 21:00; Stop 08/15/17 at 11:07; Status DC Morphine Sulfate (Roxanol Liq) 10 mg Q4H PRN PO pain 5-10 Last administered on 09/09/17at 21:44; Start 08/12/17 at 14:15 Mupirocin (Bactroban Nasal 2% Oint) Taper BID EACH NARE Last administered on 09/10/17at 08:13; Start 08/07/17 at 21:00; Stop 08/03/18 at 20:59 Nitroglycerin (Nitroglycerin 2% Oint) 2 inch Q6HR PRN TOPICAL SBP>170, DBP>90; Start 08/08/17 at 15:15 Ondansetron HCl (Zofran Inj) 4 mg Q6H PRN IV PUSH NAUSEA OR VOMITING; Start 08/03/17 at 20:00 Patient Medication Teaching (Coumadin Booklet) 1 ONCE ONCE .XX Last administered on 08/25/17at 16:00; Start 08/25/17 at 16:00; Stop 08/25/17 at 16:01 ; Status DC Pharmacy Profile Note 0 ml @ 0 mls/hr UNSCH OTHER ; Start 08/04/17 at 03:45 Phytonadione 10 mg/Sodium Chloride 51 ml @ 102 mls/hr ONCE ONCE IV Last administered on 08/05/17at 16:01; Start 08/05/17 at 16:00; Stop 08/05/17 at 16:29; Status DC Potassium Phosphate (K-Phos) 2,000 mg UNSCH PRN PO/TUBE SEE LABEL COMMENTS; Start 08/16/17 at 09:45; Stop 08/28/17 at 15:32; Status DC Potassium Phosphate 30 mmol/ Sodium Chloride 260 ml @ 42 mls/hr UNSCH PRN IV SEE LABEL COMMENTS Last administered on 08/17/17at 12:24; Start 08/16/17 at 09:45 ; Stop 08/28/17 at 15:32; Status DC Potassium Bicarb/ Potassium Chloride (K-Lyte Cl Eff) 50 meq UNSCH PRN PO For Potassium 3.3 - 3.5 mEq/L Last administered on 08/20/17at 21:40; Start 08/16/17 at 09:45; Stop 08/28/17 at 15:32; Status DC Potassium Chloride 100 ml @ 50 mls/hr Q2H PRN IV For Potassium 3.3 - 3.5 mEq/L ; Start 08/16/17 at 09:45; Stop 08/28/17 at 15:32; Status DC Propofol (Diprivan 200 Mg/20 ml Inj) 100 mg ONCE ONCE IV Last administered on 08/04/17at 10:30; Start 08/04/17 at 10:30; Stop 08/04/17 at 10:31; Status DC Rocuronium [place] (Zemuron Inj) 50 mg BOLUS ONCE IV Last administered on at 10:30; Start 08/04/17 at 10:30; Stop 08/04/17 at 10:31; Status DC Senna/Docusate Sodium (Dina-Colace) 1 tab BID PO Last administered on 09/10/17at 08:12; Start 08/03/17 at 21:00 Sennosides (Senokot) 17.2 mg Q12H PRN PO Moderate constipation; Start 08/03/17 at 20:00 Sodium Bicarbonate 150 meq/Dextrose 1,000 ml @ 75 mls/hr [id number] IV Last administered on 08/05/17at 13:13; Start 08/04/17 at 10:00; Stop 08/05/17 at 16:42; Status DC Sodium Bicarbonate (Sodium Bicarbonate 8.4% Inj) 50 meq ONCE ONCE IV PUSH Last administered on 08/04/17at 09:15; Start 08/04/17 at 09:15; Stop 08/04/17 at 09: 17; Status DC Sodium Chloride 250 ml @ 15 mls/hr ONCE ONCE IV Last administered on at 13:30; Start 09/02/17 at 06:30; Stop 09/02/17 at 23:09; Status DC Sodium Chloride (NS Flush) 2 ml BID IV FLUSH Last administered on 09/10/17at 08: 14; Start 08/03/17 at 21:00 Sodium Phosphate 30 mmol/Sodium Chloride 250 ml @ 42 mls/hr UNSCH PRN IV For Phosphorus < 2.5 mg/dL; Start 08/16/17 at 09:45; Stop 08/28/17 at 15:32; Status DC Temazepam (Restoril) 15 mg HS PRN PO INSOMNIA; Start 08/03/17 at 20:00; Stop 08/04/17 at 09:21; Status DC Warfarin Sodium (Coumadin) 1 mg DAILY@1600 PO Last administered on 09/09/17at 16: 01; Start 09/09/17 at 16:00 Zinc Sulfate (Zinc Sulfate) 220 mg DAILY PO Last administered on 09/10/17at 08:13 ; Start 08/04/17 at 09:00 Date of Insertion: August 04, 2017 A/P Assessment and Plan A/P Chronic pain syndrome Status post removal of lumbar/sacral L5/S1 hardware 06/19 Chronic opioid use Monitor neuro status, avoid sedatives KAY drain removed 08/23 after discussion with [facility] neurosurgery, Dr. Wilson and plastics Dr. Dela Cruz (resident for Dr. Shirley). Dr. Wilson requests followup in Neurosurgery clinic sometime after antibiotics completed (daptomycin stop date planned for 09/09). Acute hypercapnic respiratory failure Mild pulmonary hypertension COPD/asthma Continue with oxygen keep sats >92% Ipratropium aerosols every 6 hours Albuterol allergy IV steroid is being tapered off; will switch to prednisone soon. pulmonary following. A. fib RVR-resolved History of essential hypertension Chronic systolic congestive heart failure Chronic atrial fibrillation On Cardizem 60 mg Q6, continue Lopressor ' decrease the dose to 25mg Q12, Hydralazine 50mg Q8 08/05 Echo- The left ventricular systolic function is moderately reduced with an EF 40-45%. Dyskinetic apical cap wall motion. The right ventricle is moderately dilated. Moderate mitral valve regurgitation. Aortic valve sclerosis is present. There is mild to moderate tricuspid valve regurgitation. There is estimated mild pulmonary hypertension present (range 40-50 mmHg). On Coumadin, dosing per pharmacy as per below. Acute renal insufficiency incentive chronic kidney disease stage IV Right renal stone/no hydronephrosis Metabolic alkalosis Monitor renal function and electrolytes. Anemia of chronic disease Thrombocytopenia Leukocytosis MRSA Discitis Chronic warfarin use Funguria Sacral decubitus ulcers - wound care consulted.. treated with daptomycin. Followup with [facility] some time after that. Drain was removed 08/23. Coumadin per pharmacy. Medical records release obtained for medical records at [facility] and [facility] - The patient has a history of recent surgery at [facility] in [place]. She underwent removal of hardware from the lumbosacral spine L1-S1 because of exposed loosened hardware from prior surgery. She reportedly had surgery of the lumbosacral spine 10 years prior. The surgery at [facility] was on 06/27. Intraoperative culture reportedly had MRSA. She was put on antibiotics by infectious disease to complete on 07/29/2017. She was receiving intravenous vancomycin. The patient completed the course of the vancomycin. There is a notation in the medical record that she is ALLERGIC TO VANCOMYCIN. She was seen by infectious disease physician at [facility] and reportedly will be in need of IV antibiotics for 6 weeks because of osteomyelitis of the lumbar spine. 08/06 UTI -Denise- 08/04- Blood Cultures -NGTD Endocrine: SSI for glycemic control-- SSI Prophylaxis: GI Prophylaxis Famotidine BID DVT Prophylaxis - warfarin for a fib will also provide DVT prophylaxis. -- SCDs. Discharge Planning dc planning to SNF within the next 1-2 days if stable. Jamie Andres MD Sep 10, 2017 11:34
[2017-09-10] MEDS ORDERED: CARD240C6 PO (11:37)
[2017-09-10] MEDS ORDERED: METO25TA3 PO (11:37)
[2017-09-10] MEDS ORDERED: MORP1TAB24 PO (11:37)
[2017-09-10] MEDS ORDERED: MSIR15 PO (11:37)
--- NOTE | 2017-09-10 12:45 | HHI.PR ---
Subjective Remarks ALERT NO DISTRESS ON O2 NC Objective Vital Signs Date Time Temp Pulse Resp B/P (MAP) Pulse Ox O2 Delivery O2 Flow Rate FiO2 09/10/17 11:45 98.0 89 17 138/61 (86) 97 09/10/17 08:05 Nasal Cannula 2.00 09/10/17 08:00 97.4 92 16 124/65 (84) 96 09/10/17 04:00 98.0 85 20 131/66 (87) 95 09/10/17 00:45 98 Nasal Cannula 2.00 09/10/17 00:00 97 09/10/17 00:00 97.7 85 20 138/70 (92) 96 09/10/17 00:00 97.7 91 18 130/68 (88) 97 09/09/17 22:00 95 09/09/17 20:48 99 Nasal Cannula 2.00 09/09/17 20:00 99 09/09/17 20:00 97.6 99 18 139/63 (88) 99 09/09/17 19:00 100 Nasal Cannula 2.00 09/09/17 18:00 106 09/09/17 17:02 20 09/09/17 16:00 98.2 108 20 146/71 (96) 100 09/09/17 16:00 108 09/09/17 14:00 105 I/O 09/09/17 09/09/17 09/09/17 09/10/17 09/10/17 09/10/17 07:00 15:00 23:00 07:00 15:00 23:00 Intake Total 240 ml 900 ml Output Total 500 ml 600 ml Balance -260 ml 300 ml Intake Oral 240 ml 800 ml IV Total 100 ml Output Urine Total 500 ml 600 ml # Voids 2 # Bowel Movements 0 Result Diagram: 09/08/176 09/08/17315 Objective Remarks GENERAL: SKIN: Warm and dry. HEAD: Atraumatic. Normocephalic. EYES: Pupils equal and round. No scleral icterus. No injection or drainage. ENT: No nasal bleeding or discharge. Mucous membranes pink and moist. NECK: Trachea midline. No JVD. CARDIOVASCULAR: Regular rate and rhythm. RESPIRATORY: No accessory muscle use. Clear to auscultation. Breath sounds equal bilaterally. GASTROINTESTINAL: Abdomen soft, non-tender, nondistended. Hepatic and splenic margins not palpable. MUSCULOSKELETAL: Extremities without clubbing, cyanosis, or edema. No obvious deformities. NEUROLOGICAL: Awake and alert. No obvious cranial nerve deficits. Motor grossly within normal limits. Five out of 5 muscle strength in the arms and legs. Normal speech. PSYCHIATRIC: Appropriate mood and affect; insight and judgment normal. Assessment and Plan Assessment and Plan ASS RESPIRATORY FAILURE PNEUMONIA IMPROVING PLAN O2 NEEDED ANTIBIOTICS INCREASE ACTIVITY Claudia Taylor MD Sep 10, 2017 12:44
[2017-09-10 12:48] LABS: INTERNATIONAL NORMALIZED RATIO 2.3 RATIO; PROTHROMBIN TIME - PATIENT 23.1 SEC (9.8-11.6)
[2017-09-10] MEDS ORDERED: PRED5TAB PO (13:10)
--- NOTE | 2017-09-10 13:16 | HHI.DS ---
Discharge Summary Admission Date August 03, 2017 at 19:26 Discharge Date: Sep 10, 2017 Admitting Diagnosis sepsis, MRSA, discitis, UTI, hyperkalemia (1) Osteomyelitis ICD Code: M86.9 - Osteomyelitis, unspecified Diagnosis: Principal Procedures / -placement of NG tube IR Brief History - From Admission 76-year-old female resident of the [place] presents with complaints of respiratory difficulty. Onset was today. She is also complaining with some chest discomfort. She denies productive cough. Her symptoms are moderate to severe with no exacerbating factors. This patient was reportedly just discharged from [facility] with discitis secondary to MRSA. CBC/BMP: 09/08/17 0316 09/08/17 0316 Significant Findings Laboratory Tests Test 09/08/17 03:16 09/09/17 05:48 09/10/17 12:14 Red Blood Count 2.82 MIL/MM3 (4.00-5.30) Hemoglobin 9.1 GM/DL (11.6-15.3) Hematocrit 27.1 % (35.0-46.0) Red Cell Distribution Width 17.4 % (11.6-17.2) Neutrophils (%) (Auto) 96.9 % (16.0-70.0) Lymphocytes (%) (Auto) 1.9 % (9.0-44.0) Lymphocytes # (Auto) 0.1 TH/MM3 (1.0-4.8) Prothrombin Time 16.2 SEC (9.8-11.6) 22.2 SEC (9.8-11.6) 23.1 SEC (9.8-11.6) Blood Urea Nitrogen 51 MG/DL (7-18) Random Glucose 131 MG/DL (74-106) Calcium Level 8.3 MG/DL (8.5-10.1) Estimat Glomerular Filtration Rate 63 ML/MIN (>89) Imaging Last Impressions Chest X-Ray 09/07/17 0000 Signed Impressions: CONCLUSION: Improving infiltrate in the right lung base. Lung Scan-VQ Nuclear Medicine 09/06/17 0000 Signed Impressions: CONCLUSION: Low probability for pulmonary embolus. The ventilation portion study is comprom ised. There is much of the aerosolized material still within the patient's mout h. Lower Extremity Ultrasound 09/05/17 0000 Signed Impressions: CONCLUSION: 1. No evidence of DVT. Lumbar Spine CT 08/21/17 0000 Signed Impressions: Service Date/Time: Monday, August 21, 2017 20:47 - CONCLUSION: 1. Postsurgical features of removal of posterior fixation hardware and placement of anterior fixation hardware at L4-5 and S1 with laminectomy at L4. 2. Surgical drain extends to the mid L4 level in the posterior lumbar soft tissues. There is low density soft tissue stranding and fluid measuring up to 2.7 cm and thickness extending just caudal from the surgical drain without peripherally enhancing focal fluid collection. Librado Hernandez MD Abdomen/Pelvis CT 08/04/17 0000 Signed Impressions: Service Date/Time: August 13:46 - CONCLUSION: 1. There is stool diffusely throughout the colon suggesting constipation. 2. The solid organs of the abdomen are grossly intact. 3. No free air free fluid seen within the abdomen. No abscess is identified. 4. Small amount of free fluid within the abdomen. 5. Bilateral pleural effusions and consolidation. 6. Cardiomegaly. 7. 2 mm nonobstructing stone in the lower pole collecting system of the right kidney. 8. Anasarca. Mil Toro MD Abdomen Fluoroscopy 08/04/17 0000 Signed Impressions: Service Date/Time: August 17:00 - CONCLUSION: Uncomplicated nasoenteric suction type catheter (NGT) placement as above. Librado Hernandez MD PE at Discharge GENERAL: on BiPaP CARDIOVASCULAR: Regular rate and regular rhythm without murmurs, gallops, or rubs. RESPIRATORY: Clear to auscultation. Breath sounds equal bilaterally. No wheezes , rales, or rhonchi. GASTROINTESTINAL: Abdomen soft, non-tender, nondistended. Normal, active bowel sounds MUSCULOSKELETAL: Extremities without clubbing, cyanosis, or edema. NEURO: Alert & Oriented x4 to person, place, time, situation. Moves all ext x4 Hospital Course Chronic pain syndrome Status post removal of lumbar/sacral L5/S1 hardware 06/19 Chronic opioid use Monitor neuro status, avoid sedatives KAY drain removed 08/23 after discussion with [facility] neurosurgery, Dr. Wilson and plastics Dr. Dela Cruz (resident for Dr. Shirley). Dr. Wilson requests followup in Neurosurgery clinic sometime after antibiotics completed (daptomycin stop date planned for 09/09). Acute hypercapnic respiratory failure Mild pulmonary hypertension COPD/asthma Continue with oxygen keep sats >92% Ipratropium aerosols every 6 hours Albuterol allergy IV steroid is being tapered off; will switch to prednisone soon. pulmonary following. A. fib RVR-resolved History of essential hypertension Chronic systolic congestive heart failure Chronic atrial fibrillation On Cardizem 60 mg Q6, continue Lopressor ' decrease the dose to 25mg Q12, Hydralazine 50mg Q8 08/05 Echo- The left ventricular systolic function is moderately reduced with an EF 40-45%. Dyskinetic apical cap wall motion. The right ventricle is moderately dilated. Moderate mitral valve regurgitation. Aortic valve sclerosis is present. There is mild to moderate tricuspid valve regurgitation. There is estimated mild pulmonary hypertension present (range 40-50 mmHg). On Coumadin, dosing per pharmacy as per below. Acute renal insufficiency incentive chronic kidney disease stage IV Right renal stone/no hydronephrosis Metabolic alkalosis Monitor renal function and electrolytes. Anemia of chronic disease Thrombocytopenia Leukocytosis MRSA Discitis Chronic warfarin use Funguria Sacral decubitus ulcers - wound care consulted.. treated with daptomycin. Followup with [facility] [place] some time after that. Drain was removed 08/23. Coumadin per pharmacy. Medical records release obtained for medical records at [facility]/[place] and [facility] - The patient has a history of recent surgery at [facility] in [place]. She underwent removal of hardware from the lumbosacral spine L1-S1 because of exposed loosened hardware from prior surgery. She reportedly had surgery of the lumbosacral spine 10 years prior. The surgery at [facility] was on 06/27. Intraoperative culture reportedly had MRSA. She was put on antibiotics by infectious disease to complete on 07/29/2017. She was receiving intravenous vancomycin. The patient completed the course of the vancomycin. There is a notation in the medical record that she is ALLERGIC TO VANCOMYCIN. She was seen by infectious disease physician at [facility] and reportedly will be in need of IV antibiotics for 6 weeks because of osteomyelitis of the lumbar spine. 08/06 UTI -Denise- 08/04- Blood Cultures -NGTD Endocrine: SSI for glycemic control-- SSI Prophylaxis: GI Prophylaxis Famotidine BID DVT Prophylaxis - warfarin for a fib will also provide DVT prophylaxis. -- SCDs. Pt Condition on Discharge: Fair Discharge Disposition: Discharge to SNF Discharge Time: > 30 minutes Discharge Instructions DIET: Follow Instructions for: Heart Healthy Diet Activities you can perform: Regular-No Restrictions Other Activity Instructions: wound care; [place] reposition patient q2 hours Please change wounds daily or if soiled with bodily fluids prn. Please clean wounds with normal saline and apply nickel thick Santyl to the wound bed and apply moistened maxorb or gauze over this and cover with border gauze. Jamie Andres MD Sep 10, 2017 13:16
[2017-09-10] MEDS: WARFARIN SOD 1 MG TAB PO SCH (15:54)
[2017-09-10] MEDS: MORPHINE SULFATE ORAL SOLN 10 MG/0.5 ML SYRINGE PO PRN (17:51)
[2017-09-11] VITALS (10 sets, daily range): BP systolic 127–149; BP diastolic 60–70; PULSE 67–94; RESP 18–20; TEMP 97.6–97.9; O2SAT 96–99
[2017-09-11] MEDS: INSULIN NovoLIN REGULAR SUPPLEMENTAL SCALE SQ SCH ×6 (01:00→22:38)
[2017-09-11] MEDS: DILTIAZEM HCL 60 MG TAB PO SCH ×4 (01:04→17:34)
[2017-09-11] MEDS: CHLORHEXIDINE GLUCONATE 2 % 1 PACK (2 CLOTHS) TOP SCH (03:36)
[2017-09-11] MEDS: MORPHINE SULFATE ORAL SOLN 10 MG/0.5 ML SYRINGE PO PRN ×3 (03:37→21:58)
[2017-09-11] MEDS: hydrALAZINE HCL 50 MG TAB PO SCH ×3 (05:39→21:57)
[2017-09-11] MEDS: SODIUM CHLORIDE 0.9% FLUSH 10 ML FLUSH IV FLUSH SCH ×5 (05:40→21:58)
[2017-09-11] MEDS: ARTIFICIAL TEARS OPTH SOLN 15 ML BTL EACH EYE SCH ×3 (05:40→21:58)
[2017-09-11] MEDS: CHLORHEXIDINE 0.12% (ORAL KIT) 15 ML CUP MT SCH ×2 (08:00→20:00)
[2017-09-11] MEDS: LACTULOSE SYRUP 20 GM/30 ML CUP PO SCH ×2 (08:30→21:57)
[2017-09-11] MEDS: MUPIROCIN 2% OINT 1 APPLIC/GM SYR EACH NARE SCH ×2 (08:40→21:00)
[2017-09-11] MEDS: DOCUSATE SODIUM 50 MG/SENNA 8.6 MG TAB PO SCH ×2 (08:40→21:57)
[2017-09-11] MEDS: ZINC SULFATE 220 MG CAP PO SCH (08:40)
[2017-09-11] MEDS: METOPROLOL TARTRATE 25 MG TAB PO SCH ×2 (08:40→21:57)
[2017-09-11] MEDS: predniSONE 20 MG TAB PO SCH (08:40)
[2017-09-11] MEDS: ASCORBIC ACID 500 MG TAB PO SCH (08:40)
[2017-09-11] MEDS: FAMOTIDINE 20 MG TAB PO SCH ×2 (08:40→21:57)
--- NOTE | 2017-09-11 15:56 | HHI.PR ---
Subjective Remarks No major overnight events. Denies chest pain or shortness of breath. Objective Vitals Vital Signs Date Time Temp Pulse Resp B/P (MAP) Pulse Ox O2 Delivery O2 Flow Rate FiO2 09/11/17 12:02 97.7 94 18 129/60 (83) 99 09/11/17 10:07 71 09/11/17 08:57 97.7 67 20 127/60 (82) 99 09/11/17 07:03 Nasal Cannula 2.00 09/11/17 04:00 97.7 74 18 144/65 (91) 97 09/11/17 00:24 85 09/11/17 00:00 97.7 88 20 149/70 (96) 98 09/10/17 21:02 Nasal Cannula 2.00 09/10/17 20:04 98 09/10/17 20:00 98.2 96 20 167/75 (105) 96 09/10/17 18:03 97 21 09/10/17 17:04 98.1 73 20 133/61 (85) 97 I/O 09/10/17 09/10/17 09/10/17 09/11/17 09/11/17 09/11/17 07:00 15:00 23:00 07:00 15:00 23:00 Intake Total 480 ml Balance 480 ml Intake Oral 480 ml # Voids 2 4 # Bowel Movements 0 Result Diagram: 09/08/1731509/08/17315 Objective Remarks GENERAL: NAD, on nasal canula CARDIOVASCULAR: Regular rate and regular rhythm without murmurs, gallops, or rubs. RESPIRATORY: Clear to auscultation. Breath sounds equal bilaterally. No wheezes , rales, or rhonchi. GASTROINTESTINAL: Abdomen soft, non-tender, nondistended. Normal, active bowel sounds MUSCULOSKELETAL: Extremities without clubbing, cyanosis, or edema. NEURO: Alert & Oriented x4 to person, place, time, situation. Moves all ext x4 Procedures 08/04 -placement of NG tube IR Date of Insertion: August 04, 2017 A/P Problem List: (1) Osteomyelitis ICD Code: M86.9 - Osteomyelitis, unspecified Assessment and Plan Chronic pain syndrome Status post removal of lumbar/sacral L5/S1 hardware 06/19 Chronic opioid use Monitor neuro status, avoid sedatives KAY drain removed 08/23 after discussion with [facility] neurosurgery, Dr. Wilson and plastics Dr. Dela Cruz (resident for Dr. Shirley). Dr. Wilson requests followup in Neurosurgery clinic sometime after antibiotics completed (daptomycin stop date planned for 09/09). Acute hypercapnic respiratory failure Mild pulmonary hypertension COPD/asthma Continue with oxygen keep sats >92% Ipratropium aerosols every 6 hours Albuterol allergy IV steroid is being tapered off; will switch to prednisone soon. pulmonary following. A. fib RVR-resolved History of essential hypertension Chronic systolic congestive heart failure Chronic atrial fibrillation On Cardizem 60 mg Q6, continue Lopressor ' decrease the dose to 25mg Q12, Hydralazine 50mg Q8 08/05 Echo- The left ventricular systolic function is moderately reduced with an EF 40-45%. Dyskinetic apical cap wall motion. The right ventricle is moderately dilated. Moderate mitral valve regurgitation. Aortic valve sclerosis is present. There is mild to moderate tricuspid valve regurgitation. There is estimated mild pulmonary hypertension present (range 40-50 mmHg). On Coumadin, dosing per pharmacy as per below. Acute renal insufficiency incentive chronic kidney disease stage IV Right renal stone/no hydronephrosis Metabolic alkalosis Monitor renal function and electrolytes. Anemia of chronic disease Thrombocytopenia Leukocytosis MRSA Discitis Chronic warfarin use Funguria Sacral decubitus ulcers - wound care consulted.. treated with daptomycin. Followup with [facility] some time after that. Drain was removed 08/23. Coumadin per pharmacy. Medical records release obtained for medical records at [facility] and [facility] - The patient has a history of recent surgery at [facility] in [place]. She underwent removal of hardware from the lumbosacral spine L1-S1 because of exposed loosened hardware from prior surgery. She reportedly had surgery of the lumbosacral spine 10 years prior. The surgery at [facility] was on 06/27. Intraoperative culture reportedly had MRSA. She was put on antibiotics by infectious disease to complete on 07/29/2017. She was receiving intravenous vancomycin. The patient completed the course of the vancomycin. There is a notation in the medical record that she is ALLERGIC TO VANCOMYCIN. She was seen by infectious disease physician at [facility] and reportedly will be in need of IV antibiotics for 6 weeks because of osteomyelitis of the lumbar spine. 08/06 UTI -Denise- 08/04- Blood Cultures -NGTD Endocrine: SSI for glycemic control-- SSI Prophylaxis: GI Prophylaxis Famotidine BID DVT Prophylaxis - warfarin for a fib will also provide DVT prophylaxis. -- SCDs. Anam aGrcia MD Sep 11, 2017 15:56
[2017-09-11] MEDS: WARFARIN SOD 1 MG TAB PO SCH (16:30)
[2017-09-11] MEDS: COLLAGENASE OINT 30 GM TUBE TOPICAL SCH (16:31)
--- NOTE | 2017-09-11 16:53 | HHI.PR ---
Subjective Remarks ALERT NO DISTRESS ON O2 NC Objective Vital Signs Date Time Temp Pulse Resp B/P (MAP) Pulse Ox O2 Delivery O2 Flow Rate FiO2 09/11/17 16:43 97.6 82 20 147/66 (93) 96 09/11/17 12:02 97.7 94 18 129/60 (83) 99 09/11/17 10:07 71 09/11/17 08:57 97.7 67 20 127/60 (82) 99 09/11/17 07:03 Nasal Cannula 2.00 09/11/17 04:00 97.7 74 18 144/65 (91) 97 09/11/17 00:24 85 09/11/17 00:00 97.7 88 20 149/70 (96) 98 09/10/17 21:02 Nasal Cannula 2.00 09/10/17 20:04 98 09/10/17 20:00 98.2 96 20 167/75 (105) 96 09/10/17 18:03 97 21 09/10/17 17:04 98.1 73 20 133/61 (85) 97 I/O 09/10/17 09/10/17 09/10/17 09/11/17 09/11/17 09/11/17 07:00 15:00 23:00 07:00 15:00 23:00 Intake Total 480 ml 720 ml Balance 480 ml 720 ml Intake Oral 480 ml 720 ml # Voids 2 4 5 # Bowel Movements 0 0 Result Diagram: 09/08/1731509/08/17315 Objective Remarks GENERAL: SKIN: Warm and dry. HEAD: Atraumatic. Normocephalic. EYES: Pupils equal and round. No scleral icterus. No injection or drainage. ENT: No nasal bleeding or discharge. Mucous membranes pink and moist. NECK: Trachea midline. No JVD. CARDIOVASCULAR: Regular rate and rhythm. RESPIRATORY: No accessory muscle use. Clear to auscultation. Breath sounds equal bilaterally. GASTROINTESTINAL: Abdomen soft, non-tender, nondistended. Hepatic and splenic margins not palpable. MUSCULOSKELETAL: Extremities without clubbing, cyanosis, or edema. No obvious deformities. NEUROLOGICAL: Awake and alert. No obvious cranial nerve deficits. Motor grossly within normal limits. Five out of 5 muscle strength in the arms and legs. Normal speech. PSYCHIATRIC: Appropriate mood and affect; insight and judgment normal. Assessment and Plan Assessment and Plan ASS RESPIRATORY FAILURE PNEUMONIA IMPROVING PLAN O2 NEEDED ANTIBIOTICS INCREASE ACTIVITY Claudia Taylor MD Sep 11, 2017 16:53
[2017-09-11 18:02] LABS: INTERNATIONAL NORMALIZED RATIO 1.8 RATIO; PROTHROMBIN TIME - PATIENT 18.5 SEC (9.8-11.6)
[2017-09-12] VITALS (10 sets, daily range): BP systolic 118–147; BP diastolic 62–72; PULSE 70–101; RESP 18–20; TEMP 97.3–97.9; O2SAT 93–100
[2017-09-12] MEDS: DILTIAZEM HCL 60 MG TAB PO SCH ×4 (01:47→18:00)
[2017-09-12] MEDS: INSULIN NovoLIN REGULAR SUPPLEMENTAL SCALE SQ SCH ×6 (01:50→21:23)
[2017-09-12] MEDS: CHLORHEXIDINE GLUCONATE 2 % 1 PACK (2 CLOTHS) TOP SCH (03:59)
[2017-09-12] MEDS: hydrALAZINE HCL 50 MG TAB PO SCH ×3 (06:03→21:22)
[2017-09-12] MEDS: ARTIFICIAL TEARS OPTH SOLN 15 ML BTL EACH EYE SCH ×3 (06:03→22:00)
[2017-09-12] MEDS: SODIUM CHLORIDE 0.9% FLUSH 10 ML FLUSH IV FLUSH SCH ×5 (06:04→22:00)
[2017-09-12] MEDS: MORPHINE SULFATE ORAL SOLN 10 MG/0.5 ML SYRINGE PO PRN ×3 (06:16→21:22)
[2017-09-12] MEDS: DOCUSATE SODIUM 50 MG/SENNA 8.6 MG TAB PO SCH ×2 (08:31→21:22)
[2017-09-12] MEDS: LACTULOSE SYRUP 20 GM/30 ML CUP PO SCH ×2 (08:31→21:00)
[2017-09-12] MEDS: ZINC SULFATE 220 MG CAP PO SCH (08:31)
[2017-09-12] MEDS: predniSONE 20 MG TAB PO SCH (08:31)
[2017-09-12] MEDS: FAMOTIDINE 20 MG TAB PO SCH ×2 (08:31→21:22)
[2017-09-12] MEDS: MUPIROCIN 2% OINT 1 APPLIC/GM SYR EACH NARE SCH ×2 (08:32→21:00)
[2017-09-12] MEDS: CHLORHEXIDINE 0.12% (ORAL KIT) 15 ML CUP MT SCH ×2 (08:32→20:00)
[2017-09-12] MEDS: METOPROLOL TARTRATE 25 MG TAB PO SCH ×2 (08:32→21:23)
[2017-09-12] MEDS: ASCORBIC ACID 500 MG TAB PO SCH (08:32)
[2017-09-12] MEDS: COLLAGENASE OINT 30 GM TUBE TOPICAL SCH (08:33)
[2017-09-12 11:26] LABS: INTERNATIONAL NORMALIZED RATIO 1.6 RATIO; PROTHROMBIN TIME - PATIENT 16.6 SEC (9.8-11.6)
[2017-09-12] MEDS ORDERED: WARFARIN SOD 1 MG TAB PO SCH (16:00)
--- NOTE | 2017-09-12 16:05 | HHI.PR ---
Subjective Remarks No major overnight events. Patient denies chest pain or shortness of breath. Afebrile with stable vital signs. Objective Vitals Vital Signs Date Time Temp Pulse Resp B/P (MAP) Pulse Ox O2 Delivery O2 Flow Rate FiO2 09/12/17 15:58 97.4 89 20 125/65 (85) 97 09/12/17 12:05 97.3 101 20 133/67 (89) 100 09/12/17 08:37 97.5 80 18 132/64 (86) 99 09/12/17 08:10 Nasal Cannula 2.00 09/12/17 08:00 84 09/12/17 05:16 70 09/12/17 04:00 97.6 81 18 147/72 (97) 100 09/12/17 00:03 87 09/12/17 00:00 97.6 89 20 141/66 (91) 97 09/11/17 21:00 Nasal Cannula 2.00 09/11/17 20:00 97.9 83 20 138/70 (92) 98 09/11/17 19:53 76 09/11/17 18:08 77 09/11/17 16:43 97.6 82 20 147/66 (93) 96 I/O 09/11/17 09/11/17 09/11/17 09/12/17 09/12/17 09/12/17 07:00 15:00 23:00 07:00 15:00 23:00 Intake Total 480 ml 720 ml 480 ml 360 ml Output Total 600 ml Balance 480 ml 720 ml -600 ml 480 ml 360 ml Intake Oral 480 ml 720 ml 480 ml 360 ml Output Urine Total 600 ml # Voids 4 5 # Bowel Movements 0 0 Result Diagram: 09/08/176 09/08/17 0316 Imaging Last Impressions Chest X-Ray 09/07/17 0000 Signed Impressions: CONCLUSION: Improving infiltrate in the right lung base. Lung Scan-VQ Nuclear Medicine 09/06/17 0000 Signed Impressions: CONCLUSION: Low probability for pulmonary embolus. The ventilation portion study is comprom ised. There is much of the aerosolized material still within the patient's mout h. Lower Extremity Ultrasound 09/05/17 0000 Signed Impressions: CONCLUSION: 1. No evidence of DVT. Lumbar Spine CT 08/21/17 0000 Signed Impressions: Service Date/Time: Monday, August 21, 2017 20:47 - CONCLUSION: 1. Postsurgical features of removal of posterior fixation hardware and placement of anterior fixation hardware at L4-5 and S1 with laminectomy at L4. 2. Surgical drain extends to the mid L4 level in the posterior lumbar soft tissues. There is low density soft tissue stranding and fluid measuring up to 2.7 cm and thickness extending just caudal from the surgical drain without peripherally enhancing focal fluid collection. Librado Hernandez MD Abdomen/Pelvis CT 08/04/17 0000 Signed Impressions: Service Date/Time: August 13:46 - CONCLUSION: 1. There is stool diffusely throughout the colon suggesting constipation. 2. The solid organs of the abdomen are grossly intact. 3. No free air free fluid seen within the abdomen. No abscess is identified. 4. Small amount of free fluid within the abdomen. 5. Bilateral pleural effusions and consolidation. 6. Cardiomegaly. 7. 2 mm nonobstructing stone in the lower pole collecting system of the right kidney. 8. Anasarca. Mil Toro MD Abdomen Fluoroscopy 08/04/17 0000 Signed Impressions: Service Date/Time: August 17:00 - CONCLUSION: Uncomplicated nasoenteric suction type catheter (NGT) placement as above. Librado Hernandez MD Objective Remarks GENERAL: NAD, on nasal canula CARDIOVASCULAR: Regular rate and regular rhythm without murmurs, gallops, or rubs. RESPIRATORY: Clear to auscultation. Breath sounds equal bilaterally. No wheezes , rales, or rhonchi. GASTROINTESTINAL: Abdomen soft, non-tender, nondistended. Normal, active bowel sounds MUSCULOSKELETAL: Extremities without clubbing, cyanosis, or edema. NEURO: Alert & Oriented x4 to person, place, time, situation. Moves all ext x4 Procedures 08/04 -placement of NG tube IR Date of Insertion: August 04, 2017 A/P Problem List: (1) Osteomyelitis ICD Code: M86.9 - Osteomyelitis, unspecified Assessment and Plan Chronic pain syndrome Status post removal of lumbar/sacral L5/S1 hardware 06/19 Chronic opioid use Monitor neuro status, avoid sedatives KAY drain removed 08/23 after discussion with [facility] neurosurgery, Dr. Wilson and plastics Dr. Dela Cruz (resident for Dr. Shirley). Dr. Wilson requests followup in Neurosurgery clinic sometime after antibiotics completed (daptomycin stop date planned for 09/09). Acute hypercapnic respiratory failure Mild pulmonary hypertension COPD/asthma Continue with oxygen keep sats >92% Ipratropium aerosols every 6 hours Albuterol allergy IV steroid is being tapered off; will switch to prednisone soon. pulmonary following. A. fib RVR-resolved History of essential hypertension Chronic systolic congestive heart failure Chronic atrial fibrillation On Cardizem 60 mg Q6, continue Lopressor ' decrease the dose to 25mg Q12, Hydralazine 50mg Q8 08/05 Echo- The left ventricular systolic function is moderately reduced with an EF 40-45%. Dyskinetic apical cap wall motion. The right ventricle is moderately dilated. Moderate mitral valve regurgitation. Aortic valve sclerosis is present. There is mild to moderate tricuspid valve regurgitation. There is estimated mild pulmonary hypertension present (range 40-50 mmHg). 09/12 patient with subtherapeutic INR. Replaced pharmacy consultation to handle warfarin dosage. Goal INR 2-3. Acute renal insufficiency incentive chronic kidney disease stage IV Right renal stone/no hydronephrosis Metabolic alkalosis Monitor renal function and electrolytes. Anemia of chronic disease Thrombocytopenia Leukocytosis MRSA Discitis Chronic warfarin use Funguria Sacral decubitus ulcers - wound care consulted.. treated with daptomycin. Followup with [facility] some time after that. Drain was removed 08/23. Coumadin per pharmacy. Medical records release obtained for medical records at [facility] and [facility] - The patient has a history of recent surgery at [facility] in [place]. She underwent removal of hardware from the lumbosacral spine L1-S1 because of exposed loosened hardware from prior surgery. She reportedly had surgery of the lumbosacral spine 10 years prior. The surgery at [facility] was on 06/27. Intraoperative culture reportedly had MRSA. She was put on antibiotics by infectious disease to complete on 07/29/2017. She was receiving intravenous vancomycin. The patient completed the course of the vancomycin. There is a notation in the medical record that she is ALLERGIC TO VANCOMYCIN. She was seen by infectious disease physician at [facility] [place] and reportedly will be in need of IV antibiotics for 6 weeks because of osteomyelitis of the lumbar spine. 08/06 UTI -Denise- 08/04- Blood Cultures -NGTD Endocrine: SSI for glycemic control-- SSI Prophylaxis: GI Prophylaxis Famotidine BID DVT Prophylaxis - warfarin for a fib will also provide DVT prophylaxis. -- SCDs. Discharge Planning Pending Medicare appeal decision. Anam Garcia MD Sep 12, 2017 16:05
--- NOTE | 2017-09-12 17:45 | HHI.PR ---
Subjective Remarks ALERT NO DISTRESS ON O2 NC Objective Vital Signs Date Time Temp Pulse Resp B/P (MAP) Pulse Ox O2 Delivery O2 Flow Rate FiO2 09/12/17 15:58 97.4 89 20 125/65 (85) 97 09/12/17 12:05 97.3 101 20 133/67 (89) 100 09/12/17 08:37 97.5 80 18 132/64 (86) 99 09/12/17 08:10 Nasal Cannula 2.00 09/12/17 08:00 84 09/12/17 05:16 70 09/12/17 04:00 97.6 81 18 147/72 (97) 100 09/12/17 00:03 87 09/12/17 00:00 97.6 89 20 141/66 (91) 97 09/11/17 21:00 Nasal Cannula 2.00 09/11/17 20:00 97.9 83 20 138/70 (92) 98 09/11/17 19:53 76 09/11/17 18:08 77 I/O 09/11/17 09/11/17 09/11/17 09/12/17 09/12/17 09/12/17 07:00 15:00 23:00 07:00 15:00 23:00 Intake Total 480 ml 720 ml 480 ml 360 ml Output Total 600 ml Balance 480 ml 720 ml -600 ml 480 ml 360 ml Intake Oral 480 ml 720 ml 480 ml 360 ml Output Urine Total 600 ml # Voids 4 5 # Bowel Movements 0 0 Result Diagram: 09/08/1731509/08/17315 Objective Remarks GENERAL: SKIN: Warm and dry. HEAD: Atraumatic. Normocephalic. EYES: Pupils equal and round. No scleral icterus. No injection or drainage. ENT: No nasal bleeding or discharge. Mucous membranes pink and moist. NECK: Trachea midline. No JVD. CARDIOVASCULAR: Regular rate and rhythm. RESPIRATORY: No accessory muscle use. Clear to auscultation. Breath sounds equal bilaterally. GASTROINTESTINAL: Abdomen soft, non-tender, nondistended. Hepatic and splenic margins not palpable. MUSCULOSKELETAL: Extremities without clubbing, cyanosis, or edema. No obvious deformities. NEUROLOGICAL: Awake and alert. No obvious cranial nerve deficits. Motor grossly within normal limits. Five out of 5 muscle strength in the arms and legs. Normal speech. PSYCHIATRIC: Appropriate mood and affect; insight and judgment normal. Assessment and Plan Assessment and Plan ASS RESPIRATORY FAILURE PNEUMONIA IMPROVING PLAN O2 NEEDED ANTIBIOTICS INCREASE ACTIVITY Claudia Taylor MD Sep 12, 2017 17:45
--- NOTE | 2017-09-12 21:00 | RADRPT ---
EXAM DATE: 09/12/2017 8:23 PM EDT AGE/SEX: 76 years / Female INDICATIONS: Shortness of breath. CLINICAL DATA: This is the patient's subsequent encounter. Patient reports that signs and symptoms h ave been present for 1 week and indicates a pain score of 0/10. MEDICAL/SURGICAL HISTORY: . Congestive heart failure. Coronary artery disease, myocardial infar ction and atrial fibrillation. Appendectomy. Hysterectomy. Back surgery. . Congestive heart failure. Coronary artery disease, myocardial infarction and atrial fibrillation. Appendectomy. Hysterectomy. Back surgery. [place] [facility] [place]. . FINDINGS: Again noted is soft tissue calcifications and/or muscular calcifications in the patient's arms bilate rally with extensive osteopenia. Slight cardiomegaly has not changed. Right lung base consolidation a nd probable effusion is again seen not significantly changed. The left lung is clear. CONCLUSION: No appreciable change in right lung base consolidation and possible effusion. Electronically signed by: Wilfred Chauhan MD 09/12/2017 8:59 PM EDT
[2017-09-13] VITALS: BP 120/67; PULSE 80; PULSE 84; RESP 19; TEMP 98.8; O2SAT 94
[2017-09-13] MEDS: DILTIAZEM HCL 60 MG TAB PO SCH ×3 (00:49→13:10)
[2017-09-13] MEDS: INSULIN NovoLIN REGULAR SUPPLEMENTAL SCALE SQ SCH ×4 (00:50→13:00)
[2017-09-13 04:00] VITALS: PULSE 77
[2017-09-13] MEDS: CHLORHEXIDINE GLUCONATE 2 % 1 PACK (2 CLOTHS) TOP SCH (04:00)
[2017-09-13] MEDS: SODIUM CHLORIDE 0.9% FLUSH 10 ML FLUSH IV FLUSH SCH ×3 (04:09→13:11)
[2017-09-13 05:40] VITALS: BP 125/85; PULSE 80; RESP 19; TEMP 97.6; O2SAT 100
[2017-09-13] MEDS: hydrALAZINE HCL 50 MG TAB PO SCH ×2 (05:53→13:10)
[2017-09-13] MEDS: ARTIFICIAL TEARS OPTH SOLN 15 ML BTL EACH EYE SCH ×2 (05:55→13:11)
[2017-09-13] MEDS: CHLORHEXIDINE 0.12% (ORAL KIT) 15 ML CUP MT SCH (08:00)
[2017-09-13 08:32] VITALS: BP 150/71; PULSE 88; RESP 20; TEMP 97.8; O2SAT 100
[2017-09-13] MEDS: predniSONE 20 MG TAB PO SCH (09:01)
[2017-09-13] MEDS: METOPROLOL TARTRATE 25 MG TAB PO SCH (09:02)
[2017-09-13] MEDS: LACTULOSE SYRUP 20 GM/30 ML CUP PO SCH (09:02)
[2017-09-13] MEDS: MUPIROCIN 2% OINT 1 APPLIC/GM SYR EACH NARE SCH (09:02)
[2017-09-13] MEDS: FAMOTIDINE 20 MG TAB PO SCH (09:04)
[2017-09-13] MEDS: ZINC SULFATE 220 MG CAP PO SCH (09:04)
[2017-09-13] MEDS: DOCUSATE SODIUM 50 MG/SENNA 8.6 MG TAB PO SCH (09:04)
[2017-09-13] MEDS: ASCORBIC ACID 500 MG TAB PO SCH (09:05)
[2017-09-13] MEDS: COLLAGENASE OINT 30 GM TUBE TOPICAL SCH (09:06)
[2017-09-13 10:26] VITALS: PULSE 78
[2017-09-13 11:42] LABS: INTERNATIONAL NORMALIZED RATIO 1.6 RATIO; PROTHROMBIN TIME - PATIENT 16.3 SEC (9.8-11.6)
[2017-09-13 12:07] VITALS: BP 134/62; PULSE 87; RESP 20; TEMP 97.7; O2SAT 100
--- NOTE | 2017-09-16 09:24 | PQ ---
Physician Query Response Document PATIENT: WINIFRED CUENCA : 1940 ADMIT DATE: 08/03/2017 7:26 PM DISCH DATE: 09/13/2017 2:12 PM RESPONDING PROVIDER #: [email or web address] QUERY TEXT: Documentation Clarification Your help is requested in clarifying the following clinical documentation, if you can please further specify in the medical record and discharge summary. AFTER REVIEWING : 1)patient did have pneumonia//PRESENT ON ADMISSION 2)patient had pneumonia//NOT PRESENT ON ADMISSION 3)patient did NOT have pneumonia 4)other(please specify) The patient's Clinical Indicators include: Dr. Tai Juarez, Dr Taylor documents Pneumonia starting 09-06-17, attending does not. I am seeking ATTENDING validation or denial of diagnosis of pneumonia Please review the question of presence of Pneumonia. PLEASE REVIEW THE QUESTION BELOW AND ANSWER TO THE BEST OF YOUR ABILITY THANK YOU Query created by: Ishaan Puente on 09/14/2017 9:59 AM RESPONSE TEXT: Patient did have not pneumonia/ NOT PRESENT ON ADMISSION Electronically signed by: Anam Vang MD 09/16/2017 9:20 AM
== END 2017-09-13 14:12 | DRG 870 ==
LOC: NEPE 16:28 → NEDA 19:26 → HIMN 21:20 → N05B 08-28 15:21 → N03B 08-30 18:16 → N05A 09-05 14:42 → HIME 09-06 22:31 → N05B 09-10 00:23
PROVIDERS: ADMIT Hospitalist; ATTEND Hospitalist
PROC: 06HM33Z Insertion of Infusion Device into Right Femoral Vein, Percutaneous Approach (ICD-10-PCS; principal; 2017-08-03)
PROC: 0T9B70Z Drainage of Bladder with Drainage Device, Via Natural or Artificial Opening (ICD-10-PCS; 2017-08-03)
PROC: 30233N1 Transfusion of Nonautologous Red Blood Cells into Peripheral Vein, Percutaneous Approach (ICD-10-PCS; 2017-08-03)
PROC: 5A1955Z Respiratory Ventilation, Greater than 96 Consecutive Hours (ICD-10-PCS; 2017-08-04)
PROC: 0BH17EZ Insertion of Endotracheal Airway into Trachea, Via Natural or Artificial Opening (ICD-10-PCS; 2017-08-04)
PROC: 0D9670Z Drainage of Stomach with Drainage Device, Via Natural or Artificial Opening (ICD-10-PCS; 2017-08-04)
DX: A41.02 Sepsis due to Methicillin resistant Staphylococcus aureus (principal); J96.02 Acute respiratory failure with hypercapnia; K72.00 Acute and subacute hepatic failure without coma; R65.21 Severe sepsis with septic shock; N18.4 Chronic kidney disease, stage 4 (severe); I13.0 Hypertensive heart and chronic kidney disease with heart failure and stage 1 through stage 4 chronic kidney disease, or unspecified chronic kidney disease; E87.4 Mixed disorder of acid-base balance; L89.150 Pressure ulcer of sacral region, unstageable; N17.9 Acute kidney failure, unspecified; I50.22 Chronic systolic (congestive) heart failure; D69.6 Thrombocytopenia, unspecified; B37.49 Other urogenital candidiasis; M46.26 Osteomyelitis of vertebra, lumbar region; L97.929 Non-pressure chronic ulcer of unspecified part of left lower leg with unspecified severity; L97.919 Non-pressure chronic ulcer of unspecified part of right lower leg with unspecified severity; J93.82 Other air leak; J44.0 Chronic obstructive pulmonary disease with (acute) lower respiratory infection; I08.3 Combined rheumatic disorders of mitral, aortic and tricuspid valves; I48.2 Chronic atrial fibrillation; L89.320 Pressure ulcer of left buttock, unstageable; E87.5 Hyperkalemia; F32.9 Major depressive disorder, single episode, unspecified; D63.8 Anemia in other chronic diseases classified elsewhere; I25.2 Old myocardial infarction; I25.10 Atherosclerotic heart disease of native coronary artery without angina pectoris; K21.9 Gastro-esophageal reflux disease without esophagitis; M46.40 Discitis, unspecified, site unspecified; Z86.14 Personal history of Methicillin resistant Staphylococcus aureus infection; Z88.1 Allergy status to other antibiotic agents; Z87.891 Personal history of nicotine dependence; Z90.710 Acquired absence of both cervix and uterus; Z82.3 Family history of stroke; Z82.49 Family history of ischemic heart disease and other diseases of the circulatory system; M19.90 Unspecified osteoarthritis, unspecified site; Z86.19 Personal history of other infectious and parasitic diseases; Z51.5 Encounter for palliative care; Z74.01 Bed confinement status; R74.8 Abnormal levels of other serum enzymes; E16.2 Hypoglycemia, unspecified; L89.899 Pressure ulcer of other site, unspecified stage; G89.4 Chronic pain syndrome; Z79.899 Other long term (current) drug therapy; Z79.891 Long term (current) use of opiate analgesic; Z79.01 Long term (current) use of anticoagulants; N20.0 Calculus of kidney; E83.42 Hypomagnesemia; R79.1 Abnormal coagulation profile; I27.20 Pulmonary hypertension, unspecified; K59.00 Constipation, unspecified
CPT/HCPCS: 31500; 36430; 36556; 36600; 43752; 71045; 72131; 72132; 74176; 76937; 78582; 80048; 80053; 80061; 81001; 82140; 82550; 82805; 82948; 83605; 83615; 83690; 83735; 83880; 84100; 84132; 84484; 85007; 85014; 85018; 85025; 85027; 85379; 85610; 85730; 86077; 86850; 86870; 86880; 86900; 86901; 86902; 86920; 86922; 87040; 87070; 87077; 87086; 87106; 87186; 87205; 87641; 93005; 93306; 93970; 94002; 94003; 94640; 94664; 96361; 96374; A9540; A9567; C1769; J0360; J0610; J0696; J0878; J1100; J1120; J1160; J1450; J1644; J1940; J2185; J2270; J2920; J3010; J3430; J3475; J3480; J7030; J7050; J7070; J7512; J7644; P9016; P9047; Q9967